=== PATIENT | female | born 1940 | race Caucasian/White ===

== ENCOUNTER 2024-10-26 16:23 | Inpatient (IN) | payer MEDICARE, SELFPAY ==
[2024-10-26] VITALS (11 sets, daily range): BP systolic 69–134; BP diastolic 40–84; PULSE 85–117; RESP 20–39; TEMP 36.9; O2SAT 94–100
--- NOTE | ~2024-10-26 | CT_ITS ---
EXAMINATION: CTA chest PE protocol DATE: 10/26/2024 18:25 INDICATION: Pneumonia. TECHNIQUE: Computed tomography angiography (CTA) of the chest was performed with 100 mL Omnipaque-350 intravenous contrast timed to evaluate the pulmonary arteries. Coronal maximum intensity projection 3D-reconstructions were created by the technologist. Automated exposure control and iterative reconst ruction technique were employed. The dose-length product was 687.60 mGy-cm. COMPARISON: None. FINDINGS: There is mild emphysema. There is mild atelectasis bilaterally. There are centrilobular nod ules in lingula, consistent with mild pneumonia. No pleural effusion. There is total occlusion of lef t common carotid artery. The heart size is normal. There are coronary artery calcifications. No peric ardial effusion. There is no pulmonary embolus. There is mild left hilar and mediastinal lymphadenopa thy, likely reactive. There is severe cervical spondylosis and moderate thoracic spondylosis. There i s mild chronic anterior wedging of multiple vertebral bodies. IMPRESSION: 1. No pulmonary embolus. Sensitivity is mildly decreased by motion artifact. 2. Mild pneumonia in lingula. 3. Mild emphysema. 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 Reviewed, dictated and finalized at location A. INAL JUDGE
--- NOTE | ~2024-10-26 | XR_ITS ---
EXAMINATION: XR chest 1V portable DATE: 10/31/2024 13:12 INDICATION: Cough. TECHNIQUE: A single frontal view of the chest was obtained. COMPARISON: Chest single view 10/26/2024, chest CT 10/26/2024 FINDINGS: There are airspace opacities in the lower lung zones. No pleural effusion or pneumothorax. The heart size is normal. There is an electronic implant in left anterior chest wall. IMPRESSION: 1. Airspace opacities in the lower lung zones, consistent with atelectasis versus pneumonia. Reviewed, dictated and finalized at location A. ONICS TECHNICIAN IMPRESSION: 1. Airspace opacities in the lower lung zones, consistent with atelectasis vers us pneumonia.
--- NOTE | ~2024-10-26 | XR_ITS ---
XR abdomen/kub 1V Ordering provider: Toya Ferrer MD History: . constipation . Comparison: None. FINDINGS: BOWEL: Nonobstructive bowel gas pattern. Fecal material is seen in the colon. ORGANOMEGALY: None. SIGNIFICANT PATHOLOGIC CALCIFICATIONS: None. OTHER: No free air is seen under the diaphragm. IMPRESSION: NO ACUTE ABDOMINAL FINDINGS. Constipation. Reviewed, dictated and finalized at location A. MATION CLERK
--- NOTE | ~2024-10-26 | XR_ITS ---
EXAMINATION: XR chest 1V portable DATE: 10/26/2024 16:53 INDICATION: Shortness of breath. Pneumonia. TECHNIQUE: A single frontal view of the chest was obtained. COMPARISON: None. FINDINGS: There are airspace opacities at left lung base. No pleural effusion or pneumothorax. The he art size is normal. There is electronic device overlying left chest wall. IMPRESSION: 1. Airspace opacities at left lung base, consistent with atelectasis versus pneumonia. Reviewed, dictated and finalized at location A. INTERNSHIP IMPRESSION: 1. Airspace opacities at left lung base, consistent with atelectasis versus pne umonia.
--- OUTSIDE RECORDS SUMMARY | 2024-10-26 16:26 | XMS_ITS | CONTINUITY OF CARE DOCUMENT ---
Author Name henrietta shrestha Address Unknown Organization [facility] Address [address] [place] [address] Phone [phone] Care Team Providers Care X Ray Operator Name Role Phone Farshad JOE, Nannette Unavailable Nannette Yen MD Unavailable [phone] INSURANCE PROVIDERS Payer name Policy type / Coverage type [employer] ID [id number] PAY [place] [employer] Medicare [id number]
[2024-10-26 16:56] LABS: Alveolar/Arterial O2 Gradient 56.7 mmHg; Base Excess ABG -2.8 mEq/l (+/-2.0); Carboxyhemoglobin 1.2 % THb (0-2.0); Fractional Inspired Oxygen 21 %; HCO3 ABG 19.7 mEq/l (22.0-26.0); Methemoglobin ABG 0.1 %THb (0-1.5); Oxygen Content ABG 14.1 %vol (16.0-22.0); Oxygen Saturation ABG 92.9 % (95.0-100.0); Oxyhemoglobin 89.1 % THb (90.0-100.0); PCO2 ABG 27.6 mmHg (35.0-45.0); PO2 FiO2 Ratio Arterial Blood 2.86 %; Reduced Hemoglobin 9.6 %THb (0-5.0); Total Hemoglobin 11.2 g/dL (12.0-18.0); pH ABG 7.472 (7.350-7.450)
[2024-10-26 16:57] LABS: Site Drawn RIGHT BRACHIAL
--- OUTSIDE RECORDS SUMMARY | 2024-10-26 17:09 | XMS_ITS | Clinical Summary ---
Author Organization [facility] [address] [place] [address] Care Team Providers Care Business Intelligence Architect Name Role Phone Hayden Oreilly MD Primary Care Provi erinn Pipo Richardson MD Unavailable [phone] Allergies No known active allergies Medications nebulizers misc 1 Units every 6 (six) hours 1 each 05/25/20 22 Active cholecalciferol (VITAMIN D-3) 2000 unit tablet Act carroll aspirin 81 mg chewable tablet Take 1 tablet (81 mg total) by mouth daily Active atorvastatin (LIPITOR) 40 mg tablet Take 1 tablet (40 mg total) by mouth daily Active clopidogreL (PLAVIX) 75 mg tablet Take 1 tablet (75 mg total) by mouth daily Active levothyroxine (SYNTHROID) 125 mcg tablet TAKE 1 TABLET BY MOUTH EVERY DAY IN THE MORNING ON AN EMPTY STOMACH 90 tablet 1 05/15/20 24 Active valsartan-hydroch lorothiazide (DIOVAN-HCT) 160-25 mg per tablet TAKE 1 TABLET BY MOUTH EVERY DAY 90 tablet 1 05/15/20 24 Active meloxicam (MOBIC) 15 mg tablet TAKE 1 TABLET BY MOUTH EVERY DAY 90 tablet 1 06/07/[address] (PROTONIX) 40 mg EC tablet TAKE 1 TABLET BY MOUTH EVERY DAY 100 tablet 1 07/04/20 24 Active alendronate (FOSAMAX) 70 mg tablet TAKE 1 TABLET BY MOUTH ONCE A WEEK WITH A FULL GLASS OF WATER ONLY. DO NOT LIE DOWN/EAT FOR 30 MINS 12 tablet 3 07/29/20 24 Active meclizine (ANTIVERT) 25 mg tablet 09/10/19 25 Active benzonatate (TESSALON) 100 mg capsuleIndication s:Cough Take 1 capsule (100 mg total) by mouth 3 (three) times a day as needed for cough 42 capsule 09/23/19 25 Active ipratropium-albut Josiah (COMBIVENT RESPIMAT) 20-100 mcg/actuation inhalerIndication s:Chronic Obstructive Pulmonary Disease with Bronchospasms Inhale 2 puffs 3 (three) times a day 3 each 3 10/18/19 25 Active fluticasone-umecl idin-vilanter (Trelegy Ellipta) 100-62.5-25 mcg inhalerIndication s:Bronchospasm Prevention with COPD Inhale 1 puff daily 3 each 3 10/20/19 25 Active albuterol HFA (PROVENTIL HFA,VENTOLIN HFA,PROAIR HFA) 90 mcg/actuation inhaler Inhale 2 puffs every 4 (four) hours as needed for wheezing 1 each 5 10/25/19 25 Active cefdinir (OMNICEF) 300 mg capsule Take 1 capsule (300 mg total) by mouth 2 (two) times a day for 5 days 10 capsule 10/25/19 25 025 Active albuterol 2.5 mg /3 mL (0.083 %) nebulizer solution Take 3 mL (2.5 mg total) by nebulization every 6 (six) hours as needed for wheezing or shortness of breath 75 mL 10/26/19 25 Active albuterol 2.5 mg /3 mL (0.083 %) nebulizer solution Take 3 mL (2.5 mg total) by nebulization every 6 (six) hours as needed for wheezing 025 Discontinu ed(Reorder ) albuterol HFA (PROVENTIL HFA,VENTOLIN HFA,PROAIR HFA) 90 mcg/actuation inhaler Inhale 2 puffs every 4 (four) hours as needed for wheezing 1 each 5 04/19/20 24 025 Discontinu ed(Reorder ) fluticasone-umecl idin-vilanter (Trelegy Ellipta) 100-62.5-25 mcg inhalerIndication s:Bronchospasm Prevention with COPD Inhale 1 puff daily 2 each 06/17/20 24 025 Discontinu ed(Therapy completed) predniSONE (DELTASONE) 20 mg tabletIndications :Bronchitis Take 1 tablet (20 mg) by mouth 2 (two) times a day for 5 days 10 tablet 09/23/19 25 025 azithromycin (ZITHROMAX) 500 mg tabletIndications :Bronchitis,Strep throat Take 1 tablet (500 mg total) by mouth daily for 5 days 5 tablet 09/23/19 25 025 predniSONE (DELTASONE) 20 mg tabletIndications :Shortness of breath Take 1 tablet (20 mg) by mouth 2 (two) times a day for 5 days 10 tablet 10/16/19 25 025 Active Problems Problem Noted Date Diagnosed Date Shortness of breath 10/16/2024 Assessment & Plan (10/16/2024 3:17 PM ELECTRIC BLANKET PACKER): O2 saturation between 92-94% at rest Recommended ER evaluation, patient declined Will treat for possible COPD exacerbation again with prednisone Albuterol as needed Already recently treated with prednisone, z pack Please see your PCP or information director in the future for recurrent COPD exacerbations Cough 10/16/2024 Assessment & Plan (10/16/2024 3:16 PM ELECTRIC BLANKET PACKER): Mucinex as expectorant Albuterol nebulizer Prednisone Likely d/t COPD exacerbation Bronchitis 09/23/2024 Assessment & Plan (09/23/2024 11:51 AM ELECTRIC BLANKET PACKER): Covid and flu test negative Wheezing throughout all lung olson. No dyspnea. No need for supplemental oxygen with O2 sat 97% Initiate prednisone 20 mg twice daily x 5 days for cough. Albuterol every 4 hours for cough, chest tightness, shortness of breath. May use albuterol nebulizer. Worsening shortness of breath, chest pain, shortness of breath or worsening symptoms MUST seek emergency medical treatment. Strep throat 09/23/2024 Assessment & Plan (09/23/2024 12:04 PM ELECTRIC BLANKET PACKER): Rapid strep positive Initiate Zithromax as this antibiotic is effective as well in patient's with COPD exacerbation and safe in patient's with CKD. Warm salt water gargles. Tylenol for sore throat, body aches, fever. Cerebrovascular accident (CVA) 05/01/2024 History of stroke 04/18/2024 Carotid artery occlusion 04/14/2024 Carotid occlusion, left 04/14/2024 Acute ischemic stroke 04/13/2024 Carotid stenosis 04/13/2024 COPD (chronic obstructive pulmonary disease) 05/2024 Atherosclerosis of [place] of both lower extremities with intermittent claudication 01/31/2024 Assessment & Plan (05/16/2024 9:14 AM CDT): Tenderness with ecchymosis noted to the left calf extending down to the ankle and foot. Limb is warm well perfused palpable pulses. Current duplex shows patent bilateral common iliac artery stents. The tenderness and bruising and swelling are likely from her recent trauma to the calf and because she is on dual antiplatelet therapy. Encouraged frequent elevation of her leg, wearing Tubigrip for support and follow up in the next 6 months for routine surveillance with iliac artery duplex. Assessment & Plan (04/01/2024 1:57 PM CDT): Symptoms improved following bilateral common iliac artery stenting. Continue exercise and ongoing risk factor modification. Follow up 3 months. Assessment & Plan (02/28/2024 12:24 PM CDT): Patient has progressive and disabling claudication of the bilateral lower extremities with evidence of aortoiliac occlusive disease. I have recommended proceeding with angiogram possible intervention the procedure indications and all associated risks have been explained. Patient understands agrees to proceed Assessment & Plan (01/31/2024 10:21 AM CDT): Patient has progressive and disabling bilateral lower extremity claudication extending throughout the buttock thigh and calf. Given the likely multi level nature of her disease I have recommended obtaining CT angiogram abdomen and pelvis with runoff. Once that study is performed follow up to discuss further recommendations. Stage 3a chronic kidney disease 06/03/2021 Osteopenia of hip 06/19/2018 Hypertensive chronic kidney disease with stage 1 through stage 4 chronic kidney disease, or unspecified chronic kidney disease 05/15/2018 Assessment & Plan (02/28/2024 12:24 PM CDT): Hypertension and CKD chronic and controlled. Continue current medical management. Assessment & Plan (01/31/2024 10:22 AM CDT): Hypertension and CKD chronic and controlled. Continue current medical management. Hypothyroidism (acquired) 05/16/2017 Primary osteoarthritis of both knees 05/16/2017 Chronic obstructive pulmonary disease 10/28/2016 Assessment & Plan (04/01/2024 1:57 PM CDT): COPD chronic and controlled. Continue current medical management. Assessment & Plan (01/31/2024 10:21 AM CDT): Former smoker. COPD chronic and controlled. Continue current medical management. Resolved Problems Problem Noted Date Diagnosed Date Resolved Date Numbness and tingling 04/12/20242023 Weakness 04/12/2024 07/08/2024 Abscess 06/03/2022 07/07/2023 Class 1 obesity due to exces s calories with serious comorbidity and body mass index (BMI) of 32.0 to 32.9 in adult 06/03/2021 06/07/2022 Chronic kidney disease, stage II (mild) 05/15/2018 06/03/2021 Encounters Date Type Department Care Team Description 10/26/2024 Nurse Triage [facility] Family Medicine [address] [facility] [address] [place] [address] Hayden Oreilly MD 10/25/2024 Orders Only [facility] Virtual Care [address] [place] [phone] Cony Caba NP 10/25/2024 Nurse Triage [facility] Family [facility] [address] [facility] [address] [place] [address] Hayden Oreilly MD 10/25/2024 Telephone [facility] [address] [facility] [address] [place] [phone] Hayden Oreilly MD LAVELL Questions 10/18/2024 Telephone [facility] [address] [facility] [address] [place] [phone] Hayden Oreilly MD Medication Request 10/18/2024 Telephone [facility] [address] [facility] [address] [place] [phone] Hayden Oreilly MD Medical Question/Miscellan eous 10/16/2024 3:15 PM ELECTRIC BLANKET PACKER Office Visit [facility] [place] [address] [phone] Tamar Carpio PA Shortness of breath (Primary Dx); Cough, unspecified type 10/16/2024 Nurse Triage [facility] [address] [facility] [address] [place] [phone] Hayden Oreilly MD 2024 Telephone [facility] [address] [phone] Hayden Oreilly MD Forms Request 10/14/2024 Telephone [facility] [address] [address] Hayden Oreilly MD Medical Question/Miscellan eous 10/03/2024 Telephone [facility] [address] [phone] Hayden Oreilly MD Referral Request 09/23/2024 11:55 AM ELECTRIC BLANKET PACKER Ancillary Procedure [facility] [place] [address] [address] Bronchitis 09/23/2024 11:45 AM ELECTRIC BLANKET PACKER Office Visit [facility] [place] [address] [address] Faiz, Fazillah, PA Bronchitis (Primary Dx); Strep throat 09/23/2024 Telephone [facility] [place] [address] [facility] [address] [place] [address] Sheree Gomez NP 09/23/2024 Nurse Triage [facility] [address] [facility] [address] [place] [address] Hayden Oreilly MD 09/12/2024 9:30 AM ELECTRIC BLANKET PACKER Procedure visit [facility] [address] [facility] [address] [place] [address] Myrna Gamboa NP Bilateral impacted cerumen (Primary Dx) 09/10/2024 Orders Only [facility] Health Information Management [address] [place] [address] Scanning, Provider 09/09/2024 Telephone [facility] [address] [facility] [address] [place] [address] Hayden Oreilly MD Medical Question/Miscellan eous 08/05/2024 Telephone [facility] [address] [facility] [address] [place] [address] Hayden Oreilly MD Case Management- Primary Care (Trelegy Samples Request) 08/05/2024 ACO Outreach [facility] Accountable Care Organization [address] [place] [address] Tabitha Galvin RN from Last 3 Months Immunizations Immunization Administration Dates Next Due Influenza, Quadrivalent, Hig h Dose, Preservative Free, Intrr 07/06/2023,06/07/2022,06/30/2021 Influenza, Quadrivalent, Spl it, Intramuscular 05/16/2017 Influenza, Trivalent, High D ose, Split, Preservative Free, Intramuscular 07/08/2024,06/19/2018 Influenza, Trivalent, Preser vative Free, Intramuscular 11/25/2013 Influenza, Unspecified 04/18/2024(Deferr ed: Patient Refused),11/05/2023(Deferred: Patient Refused),11/05/2023(Deferred: Patient Refused),11/05/2023(Deferred: Patient Refused),11/04/2022(Deferred: Patient Refused),07/02/2021,06/23/2020(Deferre d: Patient Refused) Pneumococcal Conjugate PCV 13 05/16/2017, 016 Pneumococcal Polysaccharide PPV23 06/19/2018, RSV, Bivalent, Protein Subun it Rsvpref, Diluent (Abrysvo) 08/09/2024 Surgical History Surgery Date Site/Laterality Comments ANGIOPLASTY / STENTING ILIAC 02/27/2024 Bilateral Aortoiliac angiogram. BA & stenting bilateral KELSEY OTHER SURGICAL HISTORY Loop recorder implanted Medical History Medical History Date Comments Hypertension Hyperlipidemia Thyroid disease Osteoporosis Cancer (CMS/HCC) (HCC) Throat COPD (chronic obstructive pulmonary disease) (HC C) Stroke (HCC) Family History Medical History Relation Name Comments No Known Problems Father No Known Problems Mother Relation Name Status Comments Father Mother Social History Tobacco Use Types Packs/Day Years Used Date Smoking Tobacco: Former Cigarettes Q uit: 09/04/1992 Smokeless Tobacco: Never Tobacco Cessation:Counseling Given: Not Answered Comments:Quit 20 years ago Alcohol Use Standard Drinks/Week Comments Not Currently 0 (1 standard drink = 0.6 oz pur e alcohol) [employer] Utilities Answer Date Recorded In the past 12 months has [employer], gas, oil, or water [employer] threatened to shut off services in your home? No 05/09/2024 Social Connection and Isolat ion Panel [NHANES] Answer Date Recorded In a typical week, how many times do you talk on the phone with family, friends, or neighbors? More than three times a week 05/09/2024 How often do you get togethe r with friends or relatives? More than three times a week 05/09/2024 How often do you attend chur ch or judaism services? Never 05/09/2024 Do you belong to any clubs o r organizations such as temple groups, unions, fraternal or athletic groups, or school groups? No 05/09/2024 How often do you attend meet ings of the clubs or organizations you belong to? Never 05/09/2024 Are you , , di vorced, , never , or living with a partner? 05/09/2024 AUDIT-C Answer Date Recorded Q1: How often do you have a drink containing alcohol? Never 02/27/2024 Q2: How many drinks containi ng alcohol do you have on a typical day when you are drinking? Patient does not drink Q3: How often do you have si x or more drinks on one occasion? Never 02/27/2024 Overall Financial Resource Strain (CARDIA) Answe r Date Recorded How hard is it for you to pa y for the very basics like food, housing, medical care, and heating? Not hard at all 05/09/2024 PHQ-2 Answer Date Recorded PHQ-2 Total Score (If total score is 3 or more points, staff should administer the PHQ-9) 0 07/08/2024 Hunger Vital Sign Answer Date Recorded Within the past 12 months, y ou worried that your food would run out before you got the money to buy more. Never true 05/09/20 24 Within the past 12 months, t he food you bought just didn't last and you didn't have money to get more. Never true 05/09/2024 PRAPARE - Transportation Answer Date Re corded In the past 12 months, has l ack of transportation kept you from medical appointments or from getting medications? No 01/2024 In the past 12 months, has l ack of transportation kept you from meetings, work, or from getting things needed for daily living? No 05/09/2024 Housing Stability Vital Sign Answer Ulisses e Recorded In the last 12 months, was t here a time when you were not able to pay the mortgage or rent on time? No 05/09/2024 In the past 12 months, how m any times have you moved where you were living? 0 05/09/2024 At any time in the past 12 m [facility], were you homeless or living in a fdc (including now)? No 05/09/2024 Personal Safety Answer Date Recorded Have you ever been in or are you currently in a harmful physical or emotional relationship or is someone making you feel afraid or unsafe? 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 ELECTRIC BLANKET PACKER Gender Identity Not on file Sexual Orientation Not on file Obstetrics History Last Filed Vital Signs Vital Sign Reading Time Taken Comments Blood Pressure 120/78 10/16/2024 2:39 PM ELECTRIC BLANKET PACKER Pulse 103 10/16/2024 2:39 PM ELECTRIC BLANKET PACKER Temperature 36.7 C (98 F) 10/16/2024 2:39 PM ELECTRIC BLANKET PACKER Respiratory Rate 22 10/16/2024 2:39 PM ELECTRIC BLANKET PACKER Oxygen Saturation 92% 10/16/2024 2:39 PM ELECTRIC BLANKET PACKER Inhaled Oxygen Concentration - - Weight 83.3 kg (183 lb 9.6 oz) 10/16/2024 2:39 P M ELECTRIC BLANKET PACKER Height 160 cm (5' 2.99 ) 10/16/2024 2:39 PM ELECTRIC BLANKET PACKER Body Mass Index 32.53 10/16/2024 2:39 PM ELECTRIC BLANKET PACKER Plan of Treatment Health Maintenance Due Date Last Done Comments DTaP/Tdap/Td Vaccine (1 - Tdap) 1951 Hepatitis B Screening 1956 Zoster Vaccine (1 of 2) 1988 Depression Screening 07/08/2025 07/08/2024, 07/06/2023, 06/03/2022, Additional history exists Fall Risk Assessment 07/08/2025 07/08/2024, 02/27/2024, 07/06/2023, Additional history exists Well Visit 65+ 07/08/2025 07/08/2024, 10/2022, 06/03/2022, Additional history exists Covid-19 Vaccine ( season) 2025 06/15/2021, 11/12/2020, 10/21/2020 Postponed from 05/05/2024 (Patient declined, but will receive in the future) Pneumococcal vaccine 65+ Completed 018, 05/16/2017, 04/04/2016, Additional history exists Influenza Vaccine Completed 07/08/2024, , 06/07/2022, Additional history exists Medical Devices Implanted Type Area Safety Companion Device Identifier Shelf Expiration Date Model / Serial / Lot [employer] Lifestream 8mm 37mm 80cm Balloon Expandable Low Profile Cover [id number] - [id number] Implanted:Qty: 1 on 02/27/2024 by Pipo Richardson MD at [facility] [employer] 10/04/2024 [id number] / / [id number] [employer] Lifestream 8mm 37mm 80cm Balloon Expandable Low Profile Cover [id number] - [id number] Implanted:Qty: 1 on 02/27/2024 by Pipo Richardson MD at [facility] [employer] 09/03/2025 [id number] / / [id number] [employer] Closure Repair Femoral Artery Suture Mediated Perclose Prostyle 63330-60 - [id number] Implanted:Qty: 1 on 02/27/2024 by Pipo Richardson MD at [facility] [employer] 11/01/2025 [id number] / / [id number] [employer] Closure Repair Femoral Artery Suture Mediated Perclose Prostyle 28076-37 - [id number] Implanted:Qty: 1 on 02/27/2024 by Pipo Richardson MD at [facility] [employer] 11/01/2025 [id number] / / [id number] Procedures Procedure Name Priority Date/Time Associated Diagnosis Comments XR CHEST 1 VIEW Schedule Routine, Read Routine (OP Routine) 10/20/2024 8:26 AM ELECTRIC BLANKET PACKER POC INFLUENZA A/B, COVID-19 ANTIGEN Routine 10/16/2024 2:45 PM ELECTRIC BLANKET PACKER Cough, unspecified type POCT RAPID RSV Routine 10/16/2024 2:44 PM ELECTRIC BLANKET PACKER Cough, unspecified type XR CHEST PA LATERAL 2 VIEWS Schedule SARAH, Read SARAH (Appt Today, Awaiting Results) 09/23/2024 12:00 PM ELECTRIC BLANKET PACKER Bronchitis POCT RAPID RSV Routine 09/23/2024 11:27 AM ELECTRIC BLANKET PACKER Bronchitis POC INFLUENZA A/B, COVID-19 ANTIGEN Routine 09/23/2024 11:27 AM ELECTRIC BLANKET PACKER Bronchitis POCT RAPID STREP Routine 09/23/2024 11:1 9 AM ELECTRIC BLANKET PACKER Bronchitis Strep throat HI REMOVAL IMPACTED CERUMEN IRRIGATION/LVG UNILAT Routine 09/12/2024 9:30 AM ELECTRIC BLANKET PACKER Bilateral impacted cerumen SCAN - RADIOLOGY/IMAGING 09/10/2024 from Last 3 Months Results * XR Chest 1 View (10/20/2024 8:26 AM ELECTRIC BLANKET PACKER) Anatomical Region Laterality Modality Body, Chest N/A Radiographic Maame ging Historical Provider MD ACHARYA XR PROCEDURES Edited Result - Final * POC Influenza A/B, COVID-19 antigen (10/16/2024 2:45 PM ELECTRIC BLANKET PACKER) Influenza A Ag, POC Negative Negative [facility] Influenza B Ag, POC Negative Negative [facility] COVID-19 Ag POC Presumptive Negative Presumptive Negative, Invalid [facility] Nasopharyngeal 10/16/2024 2: 45 PM ELECTRIC BLANKET PACKER [facility] Jujuiz PA POINT OF CARE TEST ORDERABLES F inal Result [facility] [address] [id number] * POCT rapid RSV (10/16/2024 2:44 PM ELECTRIC BLANKET PACKER) Rapid RSV, POC Negative Negative Lot Number [id number] QC Control Line Acceptable Swab 10/16/2024 2:44 PM ELECTRIC BLANKET PACKER [facility] Jujuiz PA POINT OF CARE TEST ORDERABLES F inal Result * XR Chest Pa Lateral 2 Views (09/23/2024 12:00 PM ELECTRIC BLANKET PACKER) Anatomical Region Laterality Modality Body, Chest N/A Computed Radiogr aphy 09/23/2024 1:09 PM ELECTRIC BLANKET PACKER Narrative 09/23/2024 1:10 PM ELECTRIC BLANKET PACKER EXAM DESCRIPTION: XR CHEST PA LATERAL 2 VIEWS REASON FOR STUDY: COPD, exacerbation TECHNIQUE: Frontal and lateral radiographic view(s) of the chest. COMPARISON: 12/27/2023 FINDINGS: The heart size is stable. There is mild prominence of the pulmonary vasculature. There are atherosclerotic changes of the aorta. The lungs mildly hyperinflated. There is no definite evidence of a pneumothorax. There is no definite evidence of pleural effusion. There are mild patchy bibasilar airspace opacities. The osseous structures are acutely grossly stable. IMPRESSION: Mild patchy bibasilar airspace opacities, which is likely related to subsegmental atelectasis/scarring and less likely developing airspace disease. Mild prominence of pulmonary vasculature. THIS IS AN ELECTRONICALLY VERIFIED FINAL REPORT 09/23/2024 1:10 PM - Electronically signed by Xavier Rios D.O. PS T: Report ID: [id number] Reading Location: [id number] Procedure Note Xavier Rios, DO - 09/23/2024 EXAM DESCRIPTION: XR CHEST PA LATERAL 2 VIEWS REASON FOR STUDY: COPD, exacerbation TECHNIQUE: Frontal and lateral radiographic view(s) of the chest. COMPARISON: 12/27/2023 FINDINGS: The heart size is stable. There is mild prominence of thepulmonary vasculature. There are atherosclerotic changes of the aorta. The lungs mildly hyperinflated. There is no definite evidence of a pneumothorax.There is no definite evidence of pleural effusion. There are mild patchybibasilar airspace opacities. The osseous structures are acutely grossly stable. IMPRESSION: Mild patchy bibasilar airspace opacities, which is likely related to subsegmental atelectasis/scarring and less likely developing airspacedisease. Mild prominence of pulmonary vasculature. THIS IS AN ELECTRONICALLY VERIFIED FINAL REPORT 09/23/2024 1:10 PM - Electronically signed by Xavier Rios D.O. PS T: Report ID: [id number] Reading Location: [id number] [facility] IMG XR PROCEDURES Final Result * POC Influenza A/B, COVID-19 antigen (09/23/2024 11:27 AM ELECTRIC BLANKET PACKER) Influenza A Ag, POC Negative Negative [facility] Influenza B Ag, POC Negative Negative [facility] COVID-19 Ag POC Presumptive Negative Presumptive Negative, Invalid [facility] Nasopharyngeal 09/23/2024 11 :27 AM ELECTRIC BLANKET PACKER [facility] Balaji PA POINT OF CARE TEST ORDERABLES F inal Result [facility] [address] [facility] [address] [place] [address] * POCT rapid RSV (09/23/2024 11:27 AM ELECTRIC BLANKET PACKER) Rapid RSV, POC Negative Negative Lot Number [id number] QC Control Line Acceptable Swab 09/23/2024 11:2 7 AM ELECTRIC BLANKET PACKER [employer] Balaji PA POINT OF CARE TEST ORDERABLES F inal Result * (ABNORMAL) POCT rapid strep A (09/23/2024 11:19 AM ELECTRIC BLANKET PACKER) Rapid Strep A, POC Positive(A ) Negative Swab 09/23/2024 11:1 9 AM ELECTRIC BLANKET PACKER [employer] Balaji MACE POINT OF CARE TEST ORDERABLES E dited Result - Final * HI REMOVAL IMPACTED CERUMEN IRRIGATION/LVG UNILAT (09/12/2024 9:30 AM ELECTRIC BLANKET PACKER) Narrative Myrna Gamboa NP - 09/12/2024 9:30 AM ELECTRIC BLANKET PACKER Myrna Gamboa NP 09/12/2024 10:47 AM Ear Cerumen Removal Performed by: Myrna Gamboa NP Authorized by: Myrna Gamboa NP Consent Given by: Patient Verbal consent obtained: Yes Preparation: Patient was prepped using a clean technique Location: Bilateral L ear cerumen impacted?: Yes L ear method of removal: Irrigation L ear magnification: Otoscope R ear cerumen impacted?: Yes R ear method of removal: Irrigation R ear magnification: Otoscope Inspection: TM intact Hearing quality: Normal Patient tolerance: Patient tolerated the procedure well with no immediate complications Myrna Gamboa NP [facility]BEDSIDE [facility] Final Result * SCAN - RADIOLOGY/IMAGING (09/10/2024) Anatomical Region Laterality Modality Other us Provider Scanning Final Result from Last 3 Months Insurance DEVOTED MEDICARE PPO [place] [id number] Advance Directives For more information, please contact: [phone] * Full Code (Latest Code Status on File) Date Activated Date Inactivated Comments 06/03/2022 1:32 PM 06/05/2022 3:52 PM Care Teams Business Intelligence Architect Relationship Specialty Start Date End Date Hayden Oreilly MD [address] [address] PCP - General Family Medicine 01/31/19 Pipo Richardson MD [address] [place] [facility] [place] [address] Surgeon Vascular Surgery 02/27/24
--- OUTSIDE RECORDS SUMMARY | 2024-10-26 17:09 | XMS_ITS | Patient Health Summary ---
Author Organization [facility] Address [address] [place] [address] Care Team Providers Care Preprint Analyst Name Role Phone Hayden Oreilly MD Primary Care Provi erinn Note from [facility],non-owned Affiliates and Associated Physician Practices is amultiple site organization consisting of ambulatory clinics and hospital sitesin [place], [place] and [place]. This disclosure is being madepursuant to the Care Everywhere program and may not contain all information available regarding this patient. Last updated 18.[facility] Allergies No known active allergies Medications * Be aware that medications may not be up to date on this document. Alwaysverify current medications with the patient. * albuterol (Proventil;Ventolin) (2.5 MG/3ML) 0.083% nebulizer solution Inhale 2.5 (two and one-half) mg by mouth every 6 hours as needed * levothyroxine (Synthroid) 125 MCG tablet(Started 02/28/2023) Take 1 (one) tablet by mouth daily before breakfast * pantoprazole EC (Protonix) 40 MG tablet(Started 01/05/2024) Take 1 (one) tablet by mouth once daily * valsartan-hydroCHLOROthiazide (Diovan HCT) 160-25 MG tablet(Started 02/17/2024) Take 1 (one) tablet by mouth once daily * alendronate (Fosamax) 70 MG tablet(Started 02/12/2024) Take 1 (one) tablet by mouth every 7 days before meal * Cholecalciferol 50 MCG (1999 UT) Take 2.5 (two and one-half) tablets by mouth once daily * meloxicam (Mobic) 15 MG tablet(Started 12/07/2023) Take 1 (one) tablet by mouth once daily * aspirin (Aspirin) 81 MG chew tablet(Started 04/16/2024) Take 1 (one) tablet by mouth once daily 3 refills by 04/15/2025 * atorvastatin (Lipitor) 40 MG tablet(Started 04/15/2024) Take 1 (one) tablet by mouth at bedtime 3 refills by 04/15/2025 * clopidogrel (plaVIX) 75 MG tablet(Started 04/16/2024) Take 1 (one) tablet by mouth once daily 3 refills by 04/15/2025 Active Problems Problem Noted Date Diagnosed Date Cerebrovascular accident (CVA) 05/01/2024 Carotid artery occlusion 04/14/2024 Carotid occlusion, left 04/14/2024 Acute ischemic stroke 04/13/2024 Carotid stenosis 04/13/2024 Weakness 04/12/2024 Numbness and tingling 04/12/2024 COPD (chronic obstructive pulmonary disease) 05/2024 Social History Tobacco Use Types Packs/Day Years Used Date Smoking Tobacco: Former Cigarettes Q uit: 04/04/1994 Smokeless Tobacco: Former Quit: 04/06/1994 Tobacco Cessation:Counseling Given: Not Answered Alcohol Use Standard Drinks/Week Comments Never 0 (1 standard drink = 0.6 oz pur e alcohol) AUDIT-C Answer Date Recorded Q1: How often do you have a drink containing alcohol? Never 04/12/2024 Q2: How many drinks containi ng alcohol do you have on a typical day when you are drinking? Patient does not drink Q3: How often do you have si x or more drinks on one occasion? Never 04/12/2024 Overall Financial Resource Strain (CARDIA) Answe r Date Recorded How hard is it for you to pa y for the very basics like food, housing, medical care, and heating? Not hard at all 04/12/2024 PHQ-2 Answer Date Recorded Patient Health Questionnaire-2 Score 0 04/14/2024 [facility] - Occupational Stress Questionnaire Answer Date Recorded Do you feel stress - tense, restless, nervous, or anxious, or unable to sleep at night because your mind is troubled all the time - these days? Not at all 04/12/2024 Hunger Vital Sign Answer Date Recorded Within the past 12 months, y ou worried that your food would run out before you got the money to buy more. Never true 04/12/20 24 Within the past 12 months, t he food you bought just didn't last and you didn't have money to get more. Never true 04/12/2024 PRAPARE - Transportation Answer Date Re corded In the past 12 months, has l ack of transportation kept you from medical appointments or from getting medications? No 05/2024 In the past 12 months, has l ack of transportation kept you from meetings, work, or from getting things needed for daily living? No 04/12/2024 Housing Stability Vital Sign Answer Ulisses e Recorded In the last 12 months, was t here a time when you were not able to pay the mortgage or rent on time? No 04/12/2024 In the last 12 months, how many places have you lived? 1 04/12/2024 In the last 12 months, was t here a time when you did not have a steady place to sleep or slept in a care home (including now)? No 04/12/2024 Sex and Gender Information Value Date Recorded Sex Assigned at Not on file Gender Identity Not on file Sexual Orientation Not on file Last Filed Vital Signs Vital Sign Reading Time Taken Comments Blood Pressure 105/74 06/07/2024 10:45 AM CDT Pulse 82 06/07/2024 10:45 AM CDT Temperature 36.6 C (97.9 F) 04/15/2024 4:34 PM CDT Respiratory Rate 12 06/07/2024 10:45 AM CDT Oxygen Saturation 96% 05/28/2024 2:52 PM CDT Inhaled Oxygen Concentration - - Weight 83.5 kg (184 lb) 05/28/2024 2:52 PM CDT Height 157.5 cm (5' 2 ) 05/28/2024 2:52 PM CDT Body Mass Index 33.65 05/28/2024 2:52 PM CDT Medical Devices Implanted Type Area Radar Tester Device Identifier Shelf Expiration Date Model / Serial / Lot Rcdr Crd Linq Ii Ins - [id number] Implanted:Qty: 1 on 04/15/2024 by Katie Quiles MD at [facility] [employer] [id number] 08/22/2025 LNQ22 / [id number] / [id number] Procedures * CARDIAC PROCEDURE ORDER(Performed 09/30/2024) * ND ILR DEVICE INTERROGAT REMOTE(Performed 09/08/2024) Performed for Cerebrovascular accident (CVA), unspecified mechanism (HCC) * ND ILR DEVICE INTERROGAT REMOTE(Performed 08/04/2024) Performed for Cerebrovascular accident (CVA), unspecified mechanism (HCC) * CARDIAC PROCEDURE ORDER(Performed 06/25/2024) * CARDIAC PROCEDURE ORDER(Performed 05/28/2024) * GLUCOSE - POINT OF CARE(Performed 04/15/2024) * CCL LOOP RECORDER IMPLANT(Performed 04/15/2024) Performed for Bilateral carotid artery stenosis * CARDIAC EKG ORDER(Performed 04/15/2024) * GLUCOSE - POINT OF CARE(Performed 04/15/2024) * VAS TRANSCRANIAL DOPPLER COMP(Performed 04/15/2024) Performed for Weakness * VAS CAROTID DUPLEX BILATERAL(Performed 04/15/2024) Performed for Weakness * CBC W/O DIFFERENTIAL(Performed 04/15/2024) * BASIC METABOLIC PANEL (CALCIUM TOTAL)(Performed 04/15/2024) * CT ANGIO BRAIN AND NECK(Performed 04/15/2024) Performed for Bilateral carotid artery stenosis * CARDIAC PROCEDURE ORDER(Performed 04/15/2024) * GLUCOSE - POINT OF CARE(Performed 04/14/2024) * ECHO COMPLETE W BUBBLE STUDY(Performed 04/14/2024) Performed for Numbness and tingling * GLUCOSE - POINT OF CARE(Performed 04/14/2024) * GLUCOSE - POINT OF CARE(Performed 04/14/2024) * CBC W/O DIFFERENTIAL(Performed 04/14/2024) * BASIC METABOLIC PANEL (CALCIUM TOTAL)(Performed 04/14/2024) * MRI BRAIN WO CONTRAST(Performed 04/14/2024) Performed for Numbness and tingling * GLUCOSE - POINT OF CARE(Performed 04/13/2024) * GLUCOSE - POINT OF CARE(Performed 04/13/2024) * GLUCOSE - POINT OF CARE(Performed 04/13/2024) * LIPID PROFILE(Performed 04/13/2024) * CBC W/O DIFFERENTIAL(Performed 04/13/2024) * BASIC METABOLIC PANEL (CALCIUM TOTAL)(Performed 04/13/2024) * BLOOD TYPE VERIFICATION(Performed 04/12/2024) * HEMOGLOBIN A1C(Performed 04/12/2024) * GLUCOSE - POINT OF CARE(Performed 04/12/2024) * TROPONIN-I HIGH SENSITIVE REFLEX 1HOUR(Performed 04/12/2024) * EKG 12-LEAD(Performed 04/12/2024) Performed for Weakness * TYPE + SCREEN PANEL(Performed 04/12/2024) * TROPONIN-I HIGH SENSITIVE BASELINE + 1HR(Performed 04/12/2024) * PT-INR SL[facility](Performed 04/12/2024) * COMPREHENSIVE METABOLIC PANEL(Performed 04/12/2024) * CBC W AUTO DIFFERENTIAL(Performed 04/12/2024) * CT BRAIN STROKE(Performed 04/12/2024) Performed for Weakness * PT EVAL AND TREAT(Performed 04/12/2024) * OT EVAL AND TREAT(Performed 04/12/2024) * INR WHOLE BLOOD - POINT OF CARE (IP) STROKE(Performed 04/12/2024) * CREATININE - POCT INTERFACED(Performed 04/12/2024) * XR CHEST CONTRACT READ(Performed 02/07/2023) Performed for Chronic obstructive pulmonary disease, unspecified COPD type (HCC) * XR CHEST CONTRACT READ(Performed 08/17/2021) Performed for Research study patient Results * CARDIAC PROCEDURE ORDER (09/30/2024) Only the most recent of4 resultswithin the time period is included. Narrative 09/30/2024 Ordered by an unspecified provider. Scanned Document CARDIAC SERVICES ORD ERABLES * ND ILR DEVICE INTERROGAT REMOTE (09/08/2024 6:40 PM PEDICURIST) Narrative Herman Bailey MD - 09/08/2024 6:40 PM PEDICURIST Herman Bailey MD 09/08/2024 6:41 PM Dear Ghazal Valadez, I reviewed the remote interrogation of your loop recorder. Your device's sensing is appropriate and stable. During this most recent monitored period ending on 08/26/2024 your atrial fibrillation/tachycardia burden was 0% and you had no significant arrhythmias. Device function is normal, no programming changes are required, and no medications will need to be changed. Please call our offices if you have any further questions. Sincerely, Herman Bailey 09/08/2024 Herman Bailey MD PROCEDURE/MINOR SURG ICAL ORDERABLES * ND ILR DEVICE INTERROGAT REMOTE (08/04/2024 7:33 PM PEDICURIST) Narrative Herman Bailey MD - 08/04/2024 7:33 PM PEDICURIST Herman Bailey MD 08/04/2024 7:33 PM Dear Ghazal Valadez, I reviewed the remote interrogation of your loop recorder. Your device's sensing is appropriate and stable. During this most recent monitored period ending on 07/29/2024 your atrial fibrillation/tachycardia burden was 0% and you had no significant arrhythmias. Device function is normal, no programming changes are required, and no medications will need to be changed. Please call our offices if you have any further questions. Sincerely, Herman Bailey 08/04/2024 Herman Bailey MD PROCEDURE/MINOR SURG ICAL ORDERABLES * (ABNORMAL) GLUCOSE - POINT OF CARE (04/15/2024 3:44 PM CDT) Only the most recent of9 resultswithin the time period is included. Glucose WB/POC 117(H) 70 - 115 mg/dL 04/15/2024 6:19 PM CDT [facility] Specimen Type Arterial 04/15/2024 6:19 PM CDT [facility] Blood BLOOD SPECIMEN / Unknown 04/15/2024 3:44 PM CDT 04/15/2024 6:19 PM CDT Miquel London MD LAB - POINT OF CARE ORDERABLES [facility] [address] [place] [id number], [facility] [phone] * CCL LOOP RECORDER IMPLANT (04/15/2024 3:38 PM CDT) Anatomical Region Laterality Modality Ultrasound Narrative 05/08/2024 8:46 AM CDT . Procedure Details Estimated Blood Loss: 0 mL Miquel London MD CV ELECTROPHYSIOLOGY CUPID PROCS * CARDIAC EKG ORDER (04/15/2024 12:29 PM CDT) Narrative 04/15/2024 12:29 PM CDT Ordered by an unspecified provider. Scanned Document CARDIAC SERVICES ORD ERABLES * VAS Transcranial Doppler Comp (04/15/2024 8:47 AM CDT) Anatomical Region Laterality Modality Head Ultrasound 04/15/2024 7:38 AM CDT Narrative Procedure Note Matheus Patton MD - 05/19/2024 Miquel London MD VASCULAR LAB ORDERAB LES * VAS Carotid Duplex Bilateral (04/15/2024 8:47 AM CDT) Anatomical Region Laterality Modality Neck Intravascular Ul trasound 04/15/2024 7:18 AM CDT Narrative Procedure Note Se Palomo MD - 04/17/2024 Miquel London MD VASCULAR LAB ORDERAB LES * (ABNORMAL) CBC W/O DIFFERENTIAL (04/15/2024 4:38 AM CDT) Only the most recent of3 resultswithin the time period is included. WBC 7.9 4.0 - 10.7 x10E9/L 04/15/2024 5:59 AM CDT [facility] RBC Count 4.33 3.90 - 5.20 x10E12/L 04/15/2024 5:59 AM CDT [facility] Hemoglobin 11.7(L) 11.9 - 15.8 g/dL 04/15/2024 5:59 AM CDT [facility] Hematocrit 37.2 34.8 - 46.1 % 04/15/2024 5:59 AM CDT [facility] MCV 85.9 80.0 - 98.0 fL 04/15/2024 5:59 AM T [facility] MCH 27.0 26.7 - 33.6 pg 04/15/2024 5:59 AM [facility] MCHC 31.5(L) 31.7 - 36.3 g/dL 04/15/2024 5:59 AM [facility] RDW-CV 16.1(H) 11.3 - 14.8 % 04/15/2024 5:59 AM [facility] Platelet Count 214 150 - 420 x10E9/L 04/15/2024 5:59 AM [facility] MPV 10.1 7.8 - 11.4 fL 04/15/2024 5:59 AM [facility] Blood BLOOD SPECIMEN / Unknown Lab Venipuncture / Unknown 04/15/2024 4:38 AM CDT 04/15/2024 5:50 AM CDT Miquel London MD LAB - HEMATOLOGY ORD ERABLES [facility] [address] [place] [address], [facility] [phone] * (ABNORMAL) BASIC METABOLIC PANEL (CALCIUM TOTAL) (04/15/2024 4:38 AM CDT) Only the most recent of3 resultswithin the time period is included. BUN 29(H) 7 - 26 mg/dL 04/15/2024 6:16 AM [facility] Creatinine 1.05(H) 0.56 - 0.96 mg/dL 04/15/2024 6:16 AM [facility] Sodium 140 136 - 145 mmol/L 04/15/2024 6:16 AM [facility] Potassium 4.6(H) 3.5 - 4.5 mmol/L 04/15/2024 6:16 AM [facility] Chloride 113(H) 98 - 107 mmol/L 04/15/2024 6:16 AM [facility] CO2 20(L) 22 - 29 mmol/L 04/15/2024 6:16 AM [facility] Glucose 100 70 - 115 mg/dL 04/15/2024 6:16 AM T [facility] Calcium 9.0 8.4 - 10.2 mg/dL 04/15/2024 6:16 AM [facility] Anion Gap 7 6 - 16 04/15/2024 6:16 AM T [facility] BUN/Creatinine Ratio 28(H) 7 - 23 04/15/2024 6:16 AM [facility] Osmolality Calculated 296(H) 275 - 295 mOsm/kg 04/15/2024 6:16 AM [facility] eGFR by CKD-EPI 52(L) >=90 mL/min/1.7 3 m2 04/15/2024 6:16 AM [facility] Blood BLOOD SPECIMEN / Unknown Lab Venipuncture / Unknown 04/15/2024 4:38 AM CDT 04/15/2024 5:50 AM CDT Miquel London MD LAB - CHEMISTRY [facility] Organization Address City/State/ZIP Co de Phone Number [facility] [address] [place] [address], [facility] [phone] * CT Angio Brain And Neck (04/15/2024 12:48 AM CDT) Anatomical Region Laterality Modality Head Computed Tomogra phy 04/15/2024 1:10 AM CDT Impressions 04/17/2024 2:15 PM CDT IMPRESSION: 1.Multifocal atherosclerotic disease is involving multiple vasculature as described above. There is a complete nonopacification of the left common carotid artery suggesting chronic occlusion. There is also significant atherosclerosis at the origin of left internal carotid artery and left carotid bulb causing moderate to severe stenosis. Diminutive caliber and decreased opacification of the left internal carotid artery secondary to severe proximal stenosis or occlusion with possible distal reconstitution/retrograde flow. 2.Atherosclerosis in the right carotid bulb causing more than 75% stenosis as described above. These findings are unchanged compared to prior outside study from 04/12/2024. 3.No large vessel occlusions or significant stenosis in the intracranial vasculature. The report is dictated by Nury Green Dr, MD (vice president industrial relations) I, Asia Holliday MD have personally reviewed and interpreted this examination/study. > Interpreting Provider: Asia Holliday MD on 04/17/2024 2:15 PM Narrative 04/17/2024 2:15 PM CDT PROCEDURE: CT ANGIO BRAIN AND NECK, DATE/TIME OF EXAM: 04/15/2024 12:48 AM, LOCATION [facility] INDICATION: I65.23: Bilateral carotid artery stenosis ADDITIONAL CLINICAL INFORMATION: Ordering Provider Reason For Exam: stenosis EXAMINATION: 1. Computed tomographic (CT) angiography of the head with contrast 2. CT angiography of the neck with contrast CONTRAST: IOPAMIDOL 76 % IV SOLN:75 mL TECHNIQUE: CT angiography of the head and neck was obtained after the uneventful administration of 75 mL Isovue-370 intravenous contrast. Three dimensional postprocessing was performed by the technologist and sent to the workstation for review. Stenosis measurements are based on NASCET criteria. CT dose reduction technique was used, including Automated Exposure Control. COMPARISON: CT brain stroke protocol dated 04/12/2024. CTA head and neck 04/12/2024, outside hospital FINDINGS: Non-angiographic findings: No definite areas of abnormal contrast enhancement noted. Mild generalized parenchymal volume loss again noted with associated ex vacuo dilation of the ventricles.. There The basilar cisterns are patent. No mass effect or midline shift is seen. Evaluation of the bay-white matter differentiation is limited on this contrast study. Other than bilateral cataract extractions, the visualized portions of the orbits, paranasal sinuses, and mastoids appear normal. No acute fracture is identified. 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 Redemonstrated. No soft tissue abnormalities are identified in the neck. Multilevel mild to moderate disc and joint degenerative changes of the spine without significant central canal stenosis. Emphysematous changes in the lungs. Angiographic findings: There is atherosclerotic disease of the aortic arch predominantly in the descending thoracic aorta with the mural thrombosis.. The configuration of the brachiocephalic vessels is typical. The innominate artery and both subclavian arteries appear normal. Midportion of the right common carotid artery with approximately 50% stenosis (image 180, series 7). There is also circumferential atherosclerosis scattered throughout the right common carotid artery predominantly in the distal portion. There is atherosclerotic disease with circumferential calcified atherosclerotic plaque and central soft atherosclerotic plaque (image 247, series 7), at the right carotid bifurcation and origin of the right internal carotid artery with greater than 75% focal stenosis by NASCET criteria. The right common and internal carotid arteries otherwise appear normal. Left common carotid artery is occluded from the origin/proximal portion with only faint opacification at the origin. There is also significant atherosclerosis at the left carotid bulb and also origin of the left internal carotid artery with moderate to severe stenosis accurate evaluation of the stenosis is limited secondary to diminutive caliber left internal carotid artery.. There is also decreased caliber and opacification of the left internal carotid artery including the petrous and cavernous segments, compared to the right, could be secondary to severe stenosis/occlusion at the origin and possible distal reconstitution/retrograde flow. These findings are unchanged compared to recent outside CT angiogram from 04/12/2024 Dominant right vertebral artery with the scattered areas of atherosclerosis, without causing significant stenosis throughout the course of including V3 segment. Nondominant left vertebral artery with areas of atherosclerosis throughout the course causing areas of cmuh-en-naalsihw stenosis predominantly in the V2 segment. There is also slightly decreased opacification of the left vertebral artery compared to the right predominantly in the V2 segment proximally and proximal V1 segment, could be secondary to differences in technique showed normal opacification on the prior study from 04/12/2024. Multifocal mild to moderate atherosclerotic calcifications in the bilateral cavernous segments of the internal carotid arteries left greater than right causing focal areas of mild to moderate stenosis, unchanged compared to recent study.. Slightly diminutive caliber bilateral anterior cerebral arteries appear patent.. Mild circumferential atherosclerotic calcifications in the V4 segments of the bilateral vertebral arteries without significant stenosis. Dominant right vertebral artery. There is also small focal atherosclerotic ulceration at the origin of basilar artery without significant stenosis. Basilar artery otherwise appears patent. Slightly diminutive caliber bilateral posterior cerebral arteries however appear patent. No aneurysms, vascular occlusions, or intracranial stenoses are identified. Procedure Note Asia Holliday MD - 04/17/2024 PROCEDURE: CT ANGIO BRAIN AND NECK, DATE/TIME OF EXAM: 04/15/2024 12:48 AM, LOCATION [facility] INDICATION: I65.23: Bilateral carotid artery stenosis ADDITIONAL CLINICAL INFORMATION: Ordering Provider Reason For Exam: stenosis EXAMINATION: 1. Computed tomographic (CT) angiography of the head with contrast 2. CT angiography of the neck with contrast CONTRAST: IOPAMIDOL 76 % IV SOLN:75 mL TECHNIQUE: CT angiography of the head and neck was obtained after the uneventful administration of 75 mL Isovue-370 intravenous contrast.Three dimensional postprocessing was performed by the technologist and sent to the workstation for review. Stenosis measurements are based on NASCET criteria. CT dose reduction technique was used, including Automated Exposure Control. COMPARISON: CT brain stroke protocol dated 04/12/2024. CTA head and neck 04/12/2024, outside hospital FINDINGS: Non-angiographic findings: No definite areas of abnormal contrast enhancement noted. Mildgeneralized parenchymal volume loss again noted with associated ex vacuo dilation of the ventricles.. There The basilar cisterns are patent. No mass effector midline shift is seen. Evaluation of the bay-white matterdifferentiation is limited on this contrast study. Other than bilateral cataract extractions, the visualized portions of the orbits, paranasal sinuses,and mastoids appear normal. No acute fracture is identified. Osteoma alongthe left frontal bone again noted. Redemonstrated. No soft tissue abnormalities are identified in the neck. Multilevel mildto moderate disc and joint degenerative changes of the spine without significant central canal stenosis. Emphysematous changes in the lungs. Angiographic findings: There is atherosclerotic disease of the aortic arch predominantly in the descending thoracic aorta with the mural thrombosis.. The configurationof the brachiocephalic vessels is typical. The innominate artery and both subclavian arteries appear normal. Midportion of the right commoncarotid artery with approximately 50% stenosis (image 180, series 7). There isalso circumferential atherosclerosis scattered throughout the right common carotid artery predominantly in the distal portion. There is atherosclerotic disease with circumferential calcified atherosclerotic plaque and central soft atherosclerotic plaque (image 247, series 7), at the right carotid bifurcation and origin of the right internal carotid artery with greater than 75% focal stenosis by NASCET criteria. Theright common and internal carotid arteries otherwise appear normal. Leftcommon carotid artery is occluded from the origin/proximal portion with onlyfaint opacification at the origin. There is also significant atherosclerosis at the left carotid bulb andalso origin of the left internal carotid artery with moderate to severestenosis accurate evaluation of the stenosis is limited secondary to diminutive caliber left internal carotid artery.. There is also decreased caliberand opacification of the left internal carotid artery including the petrousand cavernous segments, compared to the right, could be secondary to severe stenosis/occlusion at the origin and possible distal reconstitution/retrograde flow. These findings are unchanged compared to recent outside CT angiogram from 04/12/2024 Dominant right vertebral artery with the scattered areas of atherosclerosis, without causing significant stenosis throughout thecourse of including V3 segment. Nondominant left vertebral artery with areas of atherosclerosis throughout the course causing areas of hcvd-tv-pcrtzmsq stenosis predominantly in the V2 segment. There is also slightlydecreased opacification of the left vertebral artery compared to the right predominantly in the V2 segment proximally and proximal V1 segment,could be secondary to differences in technique showed normal opacification onthe prior study from 04/12/2024. Multifocal mild to moderate atherosclerotic calcifications in thebilateral cavernous segments of the internal carotid arteries left greater thanright causing focal areas of mild to moderate stenosis, unchanged compared to recent study.. Slightly diminutive caliber bilateral anterior cerebral arteries appear patent.. Mild circumferential atherosclerotic calcifications in the V4 segments of the bilateral vertebral arteries without significant stenosis. Dominant right vertebral artery. There is also small focal atherosclerotic ulceration at the origin of basilarartery without significant stenosis. Basilar artery otherwise appears patent. Slightly diminutive caliber bilateral posterior cerebral arterieshowever appear patent. No aneurysms, vascular occlusions, or intracranialstenoses are identified. IMPRESSION: 1.Multifocal atherosclerotic disease is involving multiple vasculatureas described above. There is a complete nonopacification of the left common carotid artery suggesting chronic occlusion. There is also significant atherosclerosis at the origin of left internal carotid artery and left carotid bulb causing moderate to severe stenosis. Diminutive caliber and decreased opacification of the left internal carotid artery secondary to severe proximal stenosis or occlusion with possible distal reconstitution/retrograde flow. 2.Atherosclerosis in the right carotid bulb causing more than 75%stenosis as described above. These findings are unchanged compared to prioroutside study from 04/12/2024. 3.No large vessel occlusions or significant stenosis in the intracranial vasculature. The report is dictated by Nury Green Dr, MD (vice president industrial relations) I, Asia Holliday MD have personally reviewed and interpreted this examination/study. > Interpreting Provider: Asia Holliday MD on 04/17/2024 2:15 PM Miquel London MD CT ORDERABLES * ECHO COMPLETE W BUBBLE STUDY (04/14/2024 12:49 PM CDT) IVSd 2D 1.228 cm SSM CV FUJ I PACS LVIDd 3.902 cm SSM CV FUJ I PACS LVIDs 2.616 cm SSM CV FUJ I PACS LVOT diam 1.951 cm SSM CV FUJ I PACS LVPWd 1.034 cm SSM CV FUJ I PACS LV biplane EF 66.907 % SSM CV FUJI PACS LV A2C EF 68.283 % SSM CV FUJ I PACS LV A4C EF 64.767 % SSM CV FUJ I PACS LV EDV A2C 28.523 ml SSM CV FU JI PACS LV EDV A4C 43.594 ml SSM CV FU JI PACS LV ESV A2C 9.047 ml SSM CV FU JI PACS LV ESV A4C 15.359 ml SSM CV FU JI PACS LVOT pk jamshid 94.733 cm/s SSM CV F UJI PACS LVOT VTI 18.672 cm SSM CV [facility] I PACS RV-pedro basal diam 2.697 cm SSM CV FUJI PACS RVIDd 2.57 cm SSM CV [facility] I PACS RVOT diam Doppler 1.962 cm [facility] pk jamshid 90.524 cm/s SSM CV F UJI PACS RVOT VTI 14.859 cm SSM CV [facility] I PACS LA size 4.092 cm SSM CV [facility] I PACS RA area 13.384 cm [facility] AR DECEL TIME 1.237 s SSM CV FUJI PACS AV PHT 0.359 s SSM CV FUJ I PACS AV pk jamshid regurg 296.214 cm/s [facility] VTI 117.788 cm SSM CV FUJ I PACS AV mn grad 13.465 mmHg SSM CV FU JI PACS AV pk jamshid 261.413 cm/s SSM CV FUJ I PACS AV VTI 50.251 cm SSM CV FUJ I PACS MV A pk jamshid 192.088 cm/s SSM CV F UJI PACS MV E pk jamshid 125.375 cm/s SSM CV F UJI PACS MV E' lateral jamshid 4.293 cm/s SSM CV FUJI PACS MV mn grad 8.433 mmHg SSM CV FU JI PACS MV VTI 45.255 cm SSM CV FUJ I PACS PV pk jamshid 100.099 cm/s SSM CV FUJ I PACS PV VTI 15.615 cm SSM CV FUJ I PACS TAPSE 1.816 cm SSM CV FUJ I PACS Ascending aorta 2.823 cm SSM CV FUJI PACS IVC Diam Expiration 1.042 cm SSM CV FUJI PACS Myocardial strain charge 2 unitless SSM CV FUJI PACS Anatomical Region Laterality Modality Ultrasound 04/14/2024 12:1 9 PM CDT Narrative 04/15/2024 9:13 AM CDT Summary * Left ventricle is normal in size, with normal systolic function, wall motion is grossly normal, however endocardial definition is limited, and diastolic function is indeterminate. * Right ventricle is normal in size with normal systolic function. * Intact interatrial septum visualized by 2D and color Doppler and agitated saline imaging. * There is moderate mitral valve stenosis. * There is mild aortic valve regurgitation. * Unable to assess pulmonary pressures due to a lack of tricuspid and pulmonic regurgitation. Patient Info Name: Ghazal Valadez Age: 83 years : 1940 Gender: Female Ht: 62 in Wt: 187 lb BSA: 1.96 m2 HR: 87 bpm BP: 151 / 61 mmHg Heart Rhythm: Tachycardia Exam Date: 04/14/2024 12:19 PM Patient Status: I/P Study Site: [facility] Primary Location: [facility] EStudy Info Technical Quality: Adequate Exam Type: ECHO COMPLETE W BUBBLE STUDY Indications R20.0 - Numbness and tingling R20.2 - Numbness and tingling Procedure(s) * A complete 2D, color Doppler, spectral Doppler, and M-Mode transthoracic echocardiogram was performed. Contrast/Agitated Saline Contrast / Saline: Agitated Saline Amount: 5.00 ml Staff Referring Physician: Miquel London Ordering Provider: Miquel London Attending Physician: Miquel London Bread Supervisor: Pravin Gusman Left Ventricle The left ventricle is normal in size. Left ventricular systolic function is normal with an estimated ejection fraction of 67% by biplane method of disks. There is mild concentric remodeling of the left ventricle. Left ventricular segmental wall motion is grossly normal, however endocardial definition is limited. The left ventricular diastolic function is indeterminate. Right Ventricle The right ventricle is normal in size. Right ventricular systolic function is normal. Left Atrium The left atrium is normal in size. Right Atrium The right atrium is normal in size. Atrial Septum Intact interatrial septum visualized by agitated saline and 2D and color Doppler imaging. Aortic Valve The aortic valve is trileaflet and mildly calcified. There is no aortic valve stenosis. There is mild aortic valve regurgitation. Pulmonic Valve The pulmonic valve is grossly normal. There is no pulmonic valve stenosis. There is no significant pulmonic regurgitation. Mitral Valve The mitral valve is normal and displaying restricted posterior leaflet motion. Severe posterior annular calcification. There is moderate mitral valve stenosis. There is no significant mitral valve regurgitation. Tricuspid Valve The tricuspid valve is normal. There is trace tricuspid valve regurgitation. Unable to assess pulmonary pressures due to a lack of tricuspid and pulmonic regurgitation. Inferior Vena Cava The inferior vena cava is normal in size (< 2.1 cm). Pericardium/Pleural There is no pericardial effusion. Prominent epicardial fat pad. Aorta The aortic root at the sinus of Valsalva is not well visualized. The ascending aorta is normal in size. Measurements Left Ventricular Outflow Tract Name Value Normal LVOT 2D LVOT Diameter 2.0 cm LVOT Area 3.0 cm2 LVOT Doppler LVOT Peak Velocity 0.9 m/s LVOT Peak Gradient 4 mmHg LVOT Mean Velocity 57.89 cm/s LVOT Mean Gradient 2 mmHg LVOT VTI 18.7 cm LVOT VTI/AV VTI Ratio 0.4 LVOT Stroke Volume 56 ml LVOT Stroke Volume Index 28 ml/m2 35-58 LVOT CO 10.4 l/min LVOT CI 5.3 l/min/m2 Pulmonic Valve Name Value Normal PV 2D RVOT Diameter (2D) 2.0 cm 1.7-2.7 RVOT Doppler RVOT Peak Velocity 0.9 m/s RVOT Peak Gradient 3 mmHg RVOT Mean Gradient 2 mmHg PV Doppler PV Peak Velocity 1.0 m/s PV Peak Gradient 4 mmHg PV Mean Gradient 2 mmHg PV Area (Cont Eq VTI) 2.88 cm2 PV Area Index (Cont Eq VTI) 1.46 cm2/m2 PV Area (Cont Eq Jamshid) 2.7 cm2 PV Area Index (Cont Eq Jamshid) 1.39 cm2/m2 Mitral Valve Name Value Normal MV Doppler MV Peak Gradient 19 mmHg MV Mean Gradient 8 mmHg MV DI (VTI) 2.42 MV Area (Cont Eq VTI) 1.23 cm2 MV Diastolic Function MV E Peak Velocity 1.3 m/sec MV A Peak Velocity 1.9 m/sec MV E/A 0.7 MV Decel Time (PW) 172 ms MV A Wave Duration 140 ms MV Annular TDI MV Septal e' Velocity 3 cm/s >=8 MV E/e' (Septal) 45 <=8 MV Lateral e' Velocity 4 cm/s >=10 MV E/e' (Lateral) 29 <=8 MV e' Average 4 cm/s MV E/e' (Average) 37 Tricuspid Valve Name Value Normal TV Annular TDI TV Lateral Deidre s' Velocity 16 cm/s 10-19 Aorta Name Value Normal Ascending Aorta Asc Ao Diameter 2.8 cm 1.9-3.5 Asc Ao Diameter Index 1.4 cm/m2 1.0-2.2 Septae/Shunt/Generic Name Value Normal Qp/Qs Qp/Qs 0.8 Venous Name Value Normal IVC/SVC IVC Diameter 1.0 cm <=2.1 Aortic Valve Name Value Normal AV Doppler AV Peak Velocity 2.61 m/s AV Peak Gradient 27 mmHg AV Mean Gradient 13 mmHg AV VTI 50 cm AV Area (Cont Eq VTI) 1.11 cm2 >=2.00 AV Area (Cont Eq Jamshid) 1.08 cm2 AV DI (Jamshid) 0.36 AV Regurgitation 2D LVOT Area 2.99 cm2 AV Regurgitation Doppler AR Decel Time 1,237 ms AR PHT 359 ms Ventricles Name Value Normal LV Dimensions 2D/MM IVS Diastolic Thickness (2D) 1.2 cm 0.6-0.9 LVID Diastole (2D) 3.9 cm 3.8-5.2 LVPW Diastolic Thickness (2D) 1.0 cm 0.6-0.9 IVS Systolic Thickness (2D) 1.2 cm LVID Systole (2D) 2.6 cm 2.2-3.5 LVPW Systolic Thickness (2D) 1.1 cm LV Mass (2D Cubed) 101 g 67-162 LV Mass Index (2D Cubed) 52 g/m2 43-95 Relative Wall Thickness (2D) 0.53 <=0.42 LV Fractional Shortening/Ejection Fraction 2D/MM LV Fractional Shortening (2D) 33 % 27-45 LV EF (2D Teicholz) 62 % 54-74 LV Diastolic Volume (4C MOD) 44 ml LV EF (4C MOD) 65 % LV Diastolic Volume (2C MOD) 29 ml LV EF (2C MOD) 68 % LV Diastolic Volume (BP MOD) 36 ml 46-106 LV Diastolic Volume Index (BP MOD) 18 ml/m2 29-61 LV Systolic Volume (BP MOD) 12 ml 14-42 LV Systolic Volume Index (BP MOD) 6 ml/m2 8-24 LV EF (BP MOD) 67 % 54-74 LV Diastolic Length (4C) 6.0 cm LV Systolic Length (4C) 5.0 cm LV Stroke Volume (4C MOD) 28 ml RV Dimensions 2D/MM RVID Diastole (2D) 2.6 cm 2.5-3.5 RVID Systole (2D) 2.4 cm RV Basal Diastolic Dimension 2.7 cm 2.5-4.1 RV Diastolic Length (4C) 5.0 cm 5.9-8.3 TAPSE 1.8 cm >=1.7 Atria Name Value Normal LA Dimensions LA Dimension (2D) 4.1 cm 2.7-3.8 LA Dimen Index (2D) 2.1 cm/m2 RA Dimensions RA Area (4C) 13 cm2 <=18 RA Area (4C) Index 7 cm2/m2 Report Signatures Finalized by Paolo Aragon on 04/15/2024 09:13 AM Procedure Note Paolo Aragon MD - 04/15/2024 Summary * Left ventricle is normal in size, with normal systolic function,wall motion is grossly normal, however endocardial definition is limited, and diastolic function is indeterminate. * Right ventricle is normal in size with normal systolic function. * Intact interatrial septum visualized by 2D and color Doppler andagitated saline imaging. * There is moderate mitral valve stenosis. * There is mild aortic valve regurgitation. * Unable to assess pulmonary pressures due to a lack of tricuspid and pulmonic regurgitation. Patient Info Name: Ghazal Valadez Age: 83 years : 1940 Gender: Female Ht: 62 in Wt: 187 lb BSA: 1.96 m2 HR: 87 bpm BP: 151 / 61 mmHg Heart Rhythm: Tachycardia Exam Date: 04/14/2024 12:19 PM Patient Status: I/P Study Site: [facility] Primary Location: [facility] EStudy Info Technical Quality: Adequate Exam Type: ECHO COMPLETE W BUBBLE STUDY Indications R20.0 - Numbness and tingling R20.2 - Numbness and tingling Procedure(s) * A complete 2D, color Doppler, spectral Doppler, and M-Modetransthoracic echocardiogram was performed. Contrast/Agitated Saline Contrast / Saline: Agitated Saline Amount: 5.00 ml Staff Referring Physician: Miquel London Ordering Provider: Miquel London Attending Physician: Miquel London Bread Supervisor: Pravin Gusman Left Ventricle The left ventricle is normal in size. Left ventricular systolic functionis normal with an estimated ejection fraction of 67% by biplane method ofdisks. There is mild concentric remodeling of the left ventricle. Leftventricular segmental wall motion is grossly normal, however endocardial definitionis limited. The left ventricular diastolic function is indeterminate. Right Ventricle The right ventricle is normal in size. Right ventricular systolicfunction is normal. Left Atrium The left atrium is normal in size. Right Atrium The right atrium is normal in size. Atrial Septum Intact interatrial septum visualized by agitated saline and 2D andcolor Doppler imaging. Aortic Valve The aortic valve is trileaflet and mildly calcified. There is noaortic valve stenosis. There is mild aortic valve regurgitation. Pulmonic Valve The pulmonic valve is grossly normal. There is no pulmonic valvestenosis. There is no significant pulmonic regurgitation. Mitral Valve The mitral valve is normal and displaying restricted posterior leaflet motion. Severe posterior annular calcification. There is moderate mitralvalve stenosis. There is no significant mitral valve regurgitation. Tricuspid Valve The tricuspid valve is normal. There is trace tricuspid valveregurgitation. Unable to assess pulmonary pressures due to a lack of tricuspid andpulmonic regurgitation. Inferior Vena Cava The inferior vena cava is normal in size (< 2.1 cm). Pericardium/Pleural There is no pericardial effusion. Prominent epicardial fat pad. Aorta The aortic root at the sinus of Valsalva is not well visualized. The ascending aorta is normal in size. Measurements Left Ventricular Outflow Tract Name Value Normal LVOT 2D LVOT Diameter 2.0 cm LVOT Area 3.0 cm2 LVOT Doppler LVOT Peak Velocity 0.9 m/s LVOT Peak Gradient 4 mmHg LVOT Mean Velocity 57.89 cm/s LVOT Mean Gradient 2 mmHg LVOT VTI 18.7 cm LVOT VTI/AV VTI Ratio 0.4 LVOT Stroke Volume 56 ml LVOT Stroke Volume Index 28 ml/m2 35-58 LVOT CO 10.4 l/min LVOT CI 5.3 l/min/m2 Pulmonic Valve Name Value Normal PV 2D RVOT Diameter (2D) 2.0 cm 1.7-2.7 RVOT Doppler RVOT Peak Velocity 0.9 m/s RVOT Peak Gradient 3 mmHg RVOT Mean Gradient 2 mmHg PV Doppler PV Peak Velocity 1.0 m/s PV Peak Gradient 4 mmHg PV Mean Gradient 2 mmHg PV Area (Cont Eq VTI) 2.88 cm2 PV Area Index (Cont Eq VTI) 1.46 cm2/m2 PV Area (Cont Eq Jamshid) 2.7 cm2 PV Area Index (Cont Eq Jamshid) 1.39 cm2/m2 Mitral Valve Name Value Normal MV Doppler MV Peak Gradient 19 mmHg MV Mean Gradient 8 mmHg MV DI (VTI) 2.42 MV Area (Cont Eq VTI) 1.23 cm2 MV Diastolic Function MV E Peak Velocity 1.3 m/sec MV A Peak Velocity 1.9 m/sec MV E/A 0.7 MV Decel Time (PW) 172 ms MV A Wave Duration 140 ms MV Annular TDI MV Septal e' Velocity 3 cm/s >=8 MV E/e' (Septal) 45 <=8 MV Lateral e' Velocity 4 cm/s >=10 MV E/e' (Lateral) 29 <=8 MV e' Average 4 cm/s MV E/e' (Average) 37 Tricuspid Valve Name Value Normal TV Annular TDI TV Lateral Deidre s' Velocity 16 cm/s 10-19 Aorta Name Value Normal Ascending Aorta Asc Ao Diameter 2.8 cm 1.9-3.5 Asc Ao Diameter Index 1.4 cm/m2 1.0-2.2 Septae/Shunt/Generic Name Value Normal Qp/Qs Qp/Qs 0.8 Venous Name Value Normal IVC/SVC IVC Diameter 1.0 cm <=2.1 Aortic Valve Name Value Normal AV Doppler AV Peak Velocity 2.61 m/s AV Peak Gradient 27 mmHg AV Mean Gradient 13 mmHg AV VTI 50 cm AV Area (Cont Eq VTI) 1.11 cm2 >=2.00 AV Area (Cont Eq Jamshid) 1.08 cm2 AV DI (Jamshid) 0.36 AV Regurgitation 2D LVOT Area 2.99 cm2 AV Regurgitation Doppler AR Decel Time 1,237 ms AR PHT 359 ms Ventricles Name Value Normal LV Dimensions 2D/MM IVS Diastolic Thickness (2D) 1.2 cm 0.6-0.9 LVID Diastole (2D) 3.9 cm 3.8-5.2 LVPW Diastolic Thickness (2D) 1.0 cm 0.6-0.9 IVS Systolic Thickness (2D) 1.2 cm LVID Systole (2D) 2.6 cm 2.2-3.5 LVPW Systolic Thickness (2D) 1.1 cm LV Mass (2D Cubed) 101 g 67-162 LV Mass Index (2D Cubed) 52 g/m2 43-95 Relative Wall Thickness (2D) 0.53 <=0.42 LV Fractional Shortening/Ejection Fraction 2D/MM LV Fractional Shortening (2D) 33 % 27-45 LV EF (2D Teicholz) 62 % 54-74 LV Diastolic Volume (4C MOD) 44 ml LV EF (4C MOD) 65 % LV Diastolic Volume (2C MOD) 29 ml LV EF (2C MOD) 68 % LV Diastolic Volume (BP MOD) 36 ml 46-106 LV Diastolic Volume Index (BP MOD) 18 ml/m2 29-61 LV Systolic Volume (BP MOD) 12 ml 14-42 LV Systolic Volume Index (BP MOD) 6 ml/m2 8-24 LV EF (BP MOD) 67 % 54-74 LV Diastolic Length (4C) 6.0 cm LV Systolic Length (4C) 5.0 cm LV Stroke Volume (4C MOD) 28 ml RV Dimensions 2D/MM RVID Diastole (2D) 2.6 cm 2.5-3.5 RVID Systole (2D) 2.4 cm RV Basal Diastolic Dimension 2.7 cm 2.5-4.1 RV Diastolic Length (4C) 5.0 cm 5.9-8.3 TAPSE 1.8 cm >=1.7 Atria Name Value Normal LA Dimensions LA Dimension (2D) 4.1 cm 2.7-3.8 LA Dimen Index (2D) 2.1 cm/m2 RA Dimensions RA Area (4C) 13 cm2 <=18 RA Area (4C) Index 7 cm2/m2 Report Signatures Finalized by Paolo Aragon on 04/15/2024 09:13 AM Miquel London MD ECHO CUPID * MRI Brain Wo Contrast (04/14/2024 12:09 AM CDT) Anatomical Region Laterality Modality Head Magnetic Resonan ce 04/15/2024 8:01 AM CDT Impressions 04/16/2024 2:34 PM CDT IMPRESSION: 1.Scattered small foci of acute to subacute infarcts noted along the cortical and subcortical regions of the right frontal and parietal lobes, right periventricular white matter and left centrum semiovale anteriorly as described above. No evidence of hemorrhagic transformation. Moderate burden of chronic ischemic small vessel disease. 2.Absent flow void in the left carotid artery involving left petrous segment however shows opacification on the subsequent angiogram could be secondary to slow flow from proximal stenosis or occlusion. Preliminary findings were discussed with the patient's care provider, Dr. Chang by Dr. Caba via telephone at 0107 on 04/14/2024 with readback comprehension and verification. Report dictated by Cisco Taylor MD, PhD (vice president industrial relations). I, Asia Holliday MD have personally reviewed and interpreted this examination/study. > Interpreting Provider: Asia Holliday MD on 04/16/2024 2:34 PM Narrative 04/16/2024 2:34 PM CDT PROCEDURE: MRI BRAIN WO CONTRAST, DATE/TIME OF EXAM: 04/14/2024 12:09 AM, LOCATION [facility] INDICATION: R20.0: Numbness and tingling R20.2: Numbness and tingling ADDITIONAL CLINICAL INFORMATION: Ordering Provider Reason For Exam: Stroke Technologist Note: Additional: None. COMPARISON: CT brain stroke from 04/12/2024. CTA brain and neck from 04/15/2024. EXAMINATION: Magnetic resonance imaging (MRI) of the brain without contrast TECHNIQUE: MRI of the brain was performed without contrast according to standard protocol. FINDINGS: Scattered punctate foci of increased signal along the cortex of left right frontoparietal regions on DWI images without significant decrease in ADC signal.(series 3 image [id number]). There is associated mild T2/FLAIR hyperintensity in these regions. Additional small foci of restricted diffusion noted in the right periventricular white matter/right posterior garcia radiata, left frontal lobe/centrum semiovale suggesting evolving acute infarcts (image 15, 16, series 3). No susceptibility artifact to suggest hemorrhagic transformation. No evidence of acute or chronic hemorrhage is identified. Mild to moderate volume loss with associated ex vacuo dilation of the ventricles. Volume loss is most prominent involving parietal lobes. No mass effect or midline shift is seen. Moderate to severe burden of periventricular and subcortical white matter FLAIR hyperintensities likely represent sequelae of chronic small vessel ischemic disease. Redemonstrated chronic lacunar infarcts in the bilateral centrum semiovale and bilateral basilar ganglia. The corpus callosum and sella appear normal. The posterior fossa, brainstem, and craniocervical junction appear normal. Other than bilateral cataract extractions, the visualized portions of the orbits, paranasal sinuses, and mastoids appear normal. Absent flow void in the left carotid artery involving petrous and proximal cavernous segments the distal reconstitution (image 6, 7, series 9) however opacification noted on angiogram from December 2023 suggesting slow flow. Flow voids are demonstrated in the right internal carotid arteries and basilar artery. 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 Degenerative changes to the atlantoaxial joint with pannus, without significant narrowing of the craniocervical junction.. Multilevel moderate degenerative changes to the cervical spine with reversal cervical lordosis is seen 2-3 mm anterolisthesis of C4 over C5. Procedure Note Asia Holliday MD - 04/16/2024 PROCEDURE: MRI BRAIN WO CONTRAST, DATE/TIME OF EXAM: 04/14/2024 12:09AM, LOCATION [facility] INDICATION: R20.0: Numbness and tingling R20.2: Numbness and tingling ADDITIONAL CLINICAL INFORMATION: Ordering Provider Reason For Exam: Stroke Technologist Note: Additional: None. COMPARISON: CT brain stroke from 04/12/2024. CTA brain and neck from 04/15/2024. EXAMINATION: Magnetic resonance imaging (MRI) of the brain withoutcontrast TECHNIQUE: MRI of the brain was performed without contrast according to standard protocol. FINDINGS: Scattered punctate foci of increased signal along the cortex of leftright frontoparietal regions on DWI images without significant decrease in ADC signal.(series 3 image [id number]). There is associated mild T2/FLAIR hyperintensity in these regions. Additional small foci of restricted diffusion noted in the right periventricular white matter/rightposterior garcia radiata, left frontal lobe/centrum semiovale suggesting evolving acute infarcts (image 15, 16, series 3). No susceptibility artifact to suggest hemorrhagic transformation. No evidence of acute or chronic hemorrhage is identified. Mild tomoderate volume loss with associated ex vacuo dilation of the ventricles. Volume loss is most prominent involving parietal lobes. No mass effect ormidline shift is seen. Moderate to severe burden of periventricular andsubcortical white matter FLAIR hyperintensities likely represent sequelae of chronic small vessel ischemic disease. Redemonstrated chronic lacunar infarctsin the bilateral centrum semiovale and bilateral basilar ganglia. Thecorpus callosum and sella appear normal. The posterior fossa, brainstem, and craniocervical junction appear normal. Other than bilateral cataract extractions, the visualized portions ofthe orbits, paranasal sinuses, and mastoids appear normal. Absent flow voidin the left carotid artery involving petrous and proximal cavernoussegments the distal reconstitution (image 6, 7, series 9) however opacification noted on angiogram from December 2023 suggesting slow flow. Flow voids are demonstrated in the right internal carotid arteries and basilar artery. 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 Degenerative changes to the atlantoaxial joint with pannus, without significant narrowing of the craniocervical junction.. Multilevelmoderate degenerative changes to the cervical spine with reversal cervicallordosis is seen 2-3 mm anterolisthesis of C4 over C5. IMPRESSION: 1.Scattered small foci of acute to subacute infarcts noted along the cortical and subcortical regions of the right frontal and parietallobes, right periventricular white matter and left centrum semiovale anteriorlyas described above. No evidence of hemorrhagic transformation. Moderateburden of chronic ischemic small vessel disease. 2.Absent flow void in the left carotid artery involving left petrous segment however shows opacification on the subsequent angiogram could be secondary to slow flow from proximal stenosis or occlusion. Preliminary findings were discussed with the patient's care provider,Dr. Chang by Dr. Caba via telephone at 0107 on 04/14/2024 with readback comprehension and verification. Report dictated by Cisco Taylor MD, PhD (vice president industrial relations). I, Asia Holliday MD have personally reviewed and interpreted this examination/study. > Interpreting Provider: Asia Holliday MD on 04/16/2024 2:34 PM Miquel London MD MR ORDERABLES * LIPID PROFILE (04/13/2024 4:30 AM CDT) Cholesterol Total 145 <200 mg/dL 04/13/2024 5:44 AM [facility] HDL 52 >40 mg/dL 04/13/2024 5:44 AM [facility] Comment: ATP III Classification of HDL Cholesterol: <40 mg/dL: Considered a major risk factor. >60 mg/dL: Considered a negative risk factor. LDL Calculated 78 <100 mg/dL 04/13/2024 5:44 AM [facility] Comment: ATP III Classification of LDL Cholesterol: <100 mg/dL: Optimal 100 - 129 mg/dL: Near Optimal/Above Optimal 130 - 159 mg/dL: Borderline High 160 - 189 mg/dL: High >190 mg/dL: Very High Triglycerides 74 <150 mg/dL 04/13/2024 5:44 AM [facility] Comment: ATP III Classification of Triglycerides: <150 mg/dL: Normal 150 - 199 mg/dL: Borderline High 200 - 400 mg/dL: High >500 mg/dL: Very High Blood BLOOD SPECIMEN / Unknown Lab Venipuncture / Unknown 04/13/2024 4:30 AM CDT 04/13/2024 5:10 AM CDT Miquel [place] MD LAB - CHEMISTRY ORDE [place] [facility] [address] [place] [address], [facility] [phone] * BLOOD TYPE VERIFICATION (04/12/2024 9:36 PM CDT) ABO Rh O POS 04/12/2024 10:23 PM CDT [facility] Blood Bank BLOOD SPECIMEN / Unknown Venipuncture / Unknown 04/12/2024 9:36 PM CDT 04/12/2024 10:02 PM CDT Tito Freeman MD LAB - BLOOD BANK ORD [place] [facility] [address] [place] [address], [place] [phone] * HEMOGLOBIN A1C (04/12/2024 9:35 PM CDT) Hemoglobin A1c 5.6 <=5.6 % 04/13/2024 11:29 AM CDT [facility] Estimated Average Glucose 114 mg/dL 04/13/2024 11:29 AM CDT [facility] Comment: HbA1c Interpretation: Normal : < 5.7% Pre-diabetes: 5.7-6.4% Diabetes: Equal to or greater than 6.5% Test results diagnostic of diabetes should be repeated for confirmation. Treatment target values recommended by ADA and other clinical organizations should be used to evaluate metabolic control in patients. Reference: [place] [employer], Standards of Care in Diabetes -2020 In patients 70 years and older consider HbA1c target range of 7.0-7.5% (Reference: Chencho Adan et al. JAMDA. 2012) The Sebia assay for the measurement of HbA1c is a National Glycohemoglobin Standardization Program (NGSP) certified method. Blood BLOOD SPECIMEN / Unknown Venipuncture / Unknown 04/12/2024 9:35 PM CDT 04/12/2024 9:57 PM CDT Miquel London MD LAB - CHEMISTRY KVNG RAMIREZ Performing Organization Address City/[facility]/ZIP Co de Phone Number [address] [address], [facility] [phone] * TROPONIN-I HIGH SENSITIVE REFLEX 1HOUR (04/12/2024 6:02 PM CDT) Troponin I High Sensitive 5 <=14 ng/L 04/12/2024 6:49 PM CDT [facility] [place] Troponin I HS 0 <6 ng/L 04/12/2024 6:49 PM CDT [facility] Blood BLOOD SPECIMEN / Unknown Venipuncture / Unknown 04/12/2024 6:02 PM CDT 04/12/2024 6:10 PM CDT Miquel London MD LAB - CHEMISTRY KVNG RAMIREZ Performing Organization Address [facility]/ZIP Co de Phone Number [address] [address], [facility] [phone] * EKG 12-LEAD (04/12/2024 4:42 PM CDT) Ventricular Rate 86 BPM SL MUSE Atrial Rate 86 BPM [facility] M[facility] P-R Interval 192 ms [facility] QRS Duration ms 84 ms [facility] Q-T Interval ms 352 ms [facility] M[facility] QTC Calculation (Bezet) 421 ms [facility] MUSE Calculated P [place] 62 degrees SL MUSE Calculated R [place] 59 degrees SL MUSE Calculated T [place] 52 degrees SLH MUSE Interpretation EKG NORMAL SINUS RHYTHM NORMAL ECG NO PREVIOUS ECGS AVAILABLE Confirmed by SADIA BIRD MD ([id number]) on 04/15/2024 9:05:12 AM [facility] MUSE 04/12/2024 4:42 PM CDT 04/15/2024 9:05 AM CDT Tito Freeman MD ECG ORDERABLES Performing Organization Address [facility] Co de Phone Number [facility] MUSE * PT-INR [facility] (04/12/2024 4:33 PM CDT) [facility] PT 12.5 12.1 - 14.8 Seconds 04/12/2024 5:00 PM CDT [facility] INR 1.0 See Comment 04/12/2024 5:00 PM CDT [facility] Comment:The suggested therap eutic range for standard coumadin (warfarin) therapy is an INR of 2.0-3.0. For high-risk patients (Mechanical Mitral Valve Prosthesis, etc.), the suggested prophylactic therapeutic range is an INR of 2.5-3.5. Blood BLOOD SPECIMEN / Unknown Venipuncture / Unknown 04/12/2024 4:33 PM CDT 04/12/2024 4:41 PM CDT Tito Freeman MD LAB - COAGULATION OR DERABLES Performing Organization Address [facility]/ZIP Co de Phone Number [address] [address], [facility] [phone] * TROPONIN-I HIGH SENSITIVE BASELINE + 1HR (04/12/2024 4:33 PM CDT) [facility] Troponin I High Sensitive 5 <=14 ng/L 04/12/2024 5:07 PM CDT [facility] Blood BLOOD SPECIMEN / Unknown Venipuncture / Unknown 04/12/2024 4:33 PM CDT 04/12/2024 4:41 PM CDT Miquel London MD LAB - CHEMISTRY KVNG RAMIREZ Performing Organization Address [facility]/ZIP Co de Phone Number [address] [address], [place] [phone] * TYPE + SCREEN PANEL (04/12/2024 4:33 PM CDT) [facility] Antibody Screen NEG 5:28 PM CDT [facility] ABO Rh O POS 04/12/2024 5:28 PM T [facility] Blood Bank BLOOD SPECIMEN / Unknown Venipuncture / Unknown 04/12/2024 4:33 PM CDT 04/12/2024 4:45 PM CDT Tito Freeman MD LAB - BLOOD BANK ORD ERABLES [facility] [address] [place] [address], [facility] [phone] * (ABNORMAL) CBC W AUTO DIFFERENTIAL (04/12/2024 4:33 PM CDT) WBC 11.0(H) 4.0 - 10.7 x10E9/L 04/12/2024 4:47 PM [facility] RBC Count 4.64 3.90 - 5.20 x10E12/L 04/12/2024 4:47 PM [facility] Hemoglobin 12.6 11.9 - 15.8 g/dL 04/12/2024 4:47 PM [facility] Hematocrit 39.8 34.8 - 46.1 % 04/12/2024 4:47 PM [facility] MCV 85.8 80.0 - 98.0 fL 04/12/2024 4:47 PM [facility] MCH 27.2 26.7 - 33.6 pg 04/12/2024 4:47 PM [facility] MCHC 31.7 31.7 - 36.3 g/dL 04/12/2024 4:47 PM [facility] RDW-CV 16.2(H) 11.3 - 14.8 % 04/12/2024 4:47 PM [facility] Platelet Count 229 150 - 420 x10E9/L 04/12/2024 4:47 PM [facility] MPV 10.0 7.8 - 11.4 fL 04/12/2024 4:47 PM [facility] Neutrophil % 74.9(H) 41.0 - 74.0 % 04/12/2024 4:47 PM [facility] Lymphocyte % 13.1(L) 17.0 - 47.0 % 04/12/2024 4:47 PM [facility] Monocyte % 9.6 3.0 - 11.0 % 04/12/2024 4:47 PM [facility] Eosinophil % 1.5 0.0 - 7.0 % 04/12/2024 4:47 PM [facility] Basophil % 0.5 0.0 - 1.6 % 04/12/2024 4:47 PM [facility] Immature Granulocytes % 0.4 0.0 - 1.0 % 04/12/2024 4:47 PM [facility] Neutrophil Absolute 8.22(H) 1.60 - 7.50 x10E9/L 04/12/2024 4:47 PM [facility] Lymphocyte Absolute 1.44 1.00 - 4.40 x10E9/L 04/12/2024 4:47 PM [facility] Monocyte Absolute 1.05(H) 0.15 - 1.00 x10E9/L 04/12/2024 4:47 PM [facility] Eosinophil Absolute 0.16 0.00 - 0.60 x10E9/L 04/12/2024 4:47 PM [facility] Basophil Absolute 0.05 0.00 - 0.13 x10E9/L 04/12/2024 4:47 PM [facility] Blood BLOOD SPECIMEN / Unknown Venipuncture / Unknown 04/12/2024 4:33 PM CDT 04/12/2024 4:41 PM CDT Tito Freeman MD LAB - HEMATOLOGY ORD ERABLES [facility] [address] [place] [address], [facility] [phone] * (ABNORMAL) COMPREHENSIVE METABOLIC PANEL (04/12/2024 4:33 PM CDT) BUN 40(H) 7 - 26 mg/dL 04/12/2024 5:04 PM T [facility] Creatinine 1.21(H) 0.56 - 0.96 mg/dL 04/12/2024 5:04 PM [facility] Sodium 141 136 - 145 mmol/L 04/12/2024 5:04 PM [facility] Potassium 4.8(H) 3.5 - 4.5 mmol/L 04/12/2024 5:04 PM [facility] Chloride 111(H) 98 - 107 mmol/L 04/12/2024 5:04 PM [facility] CO2 22 22 - 29 mmol/L 04/12/2024 5:04 PM [facility] Glucose 103 70 - 115 mg/dL 04/12/2024 5:04 PM [facility] Calcium 9.0 8.4 - 10.2 mg/dL 04/12/2024 5:04 PM [facility] Protein Total 6.6 6.0 - 8.3 g/dL 04/12/2024 5:04 PM [facility] Albumin 3.3(L) 3.4 - 5.0 g/dL 04/12/2024 5:04 PM [facility] Bilirubin Total 0.4 0.2 - 1.2 mg/dL 04/12/2024 5:04 PM [facility] Alkaline Phosphatase 68 40 - 150 U/L 04/12/2024 5:04 PM [facility] ALT 15 5 - 55 U/L 04/12/2024 5:04 PM [facility] AST 16 5 - 34 U/L 04/12/2024 5:04 PM [facility] Anion Gap 8 6 - 16 04/12/2024 5:04 PM [facility] BUN/Creatinine Ratio 33(H) 7 - 23 04/12/2024 5:04 PM [facility] Osmolality Calculated 302(H) 275 - 295 mOsm/kg 04/12/2024 5:04 PM [facility] Albumin/Globulin Ratio 1.0(L) 1.1 - 2.3 04/12/2024 5:04 PM [facility] eGFR by CKD-EPI 44(L) >=90 mL/min/1.7 3 m2 04/12/2024 5:04 PM CDT [facility] Blood BLOOD SPECIMEN / Unknown Venipuncture / Unknown 04/12/2024 4:33 PM CDT 04/12/2024 4:41 PM CDT Tito Freeman MD LAB - CHEMISTRY KVNG RAMIREZ [facility] Organization Address City/State/ZIP Co de Phone Number [facility] [address] [place] [address], [facility] [phone] * CT BRAIN - Stroke (04/12/2024 4:28 PM CDT) Anatomical Region Laterality Modality Head Computed Tomogra phy 04/12/2024 4:37 PM CDT Impressions 04/12/2024 4:46 PM CDT IMPRESSION: No acute intracranial hemorrhage or large vascular territory infarct. Results of this exam were verbally discussed by Dr. Sri Galindo with Dr. Chang on 04/12/2024 at 4:29 PM for a Critical Stroke Protocol with readback confirmation and verification. The images were reviewed by attending physician Dr. Vno Harmon prior to this communication > Interpreting Provider: Von Harmon MD, PhD on 04/12/2024 4:46 PM Narrative 04/12/2024 4:46 PM CDT EXAM: CT BRAIN STROKE, DATE/TIME OF EXAM: 04/12/2024 4:29 PM, LOCATION: [facility] HISTORY: Code Stroke ADDITIONAL CLINICAL INFORMATION: Ordering Provider Reason For Exam: Stroke code: Left upper extremity numbness and tingling. EXAMINATION: CT scan of the head without intravenous contrast TECHNIQUE: CT of the head was performed without intravenous contrast according to standard protocol. CT dose reduction technique was used, including Automated Exposure Control. COMPARISON: Head CT 09/04/2010. FINDINGS: Contrast opacification of the major intracranial arteries and dural venous sinuses that is suggestive of recent intravenous contrast administration. Within this limitation, the following assessment is made: BRAIN PARENCHYMA: No acute hemorrhage, large vascular territory infarct, or mass effect. ASPECTS: 10 Small chronic lacunes of the left frontal lobe centrum semiovale periventricular white matter and left external capsule/subinsular region in addition to a tiny chronic lacune of the right frontal lobe centrum semiovale. Scattered and confluent white matter hypodensities, which are nonspecific but likely 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 Wkad-nb-yofdxpwt cerebral volume loss with mild ex vacuo dilation of the lateral ventricles. VENTRICLES/EXTRA-AXIAL SPACES: No evidence of hydrocephalus. No extra-axial collection. Basal cisterns are patent. EXTRACRANIAL STRUCTURES: No acute or suspicious osseous abnormality. Mild degenerative changes of the right temporomandibular joint. 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 Normal soft tissues. Visualized paranasal sinuses and mastoids demonstrate no significant abnormality. Bilateral lens replacement; otherwise, orbits are unremarkable. Lkou-wy-xhihegsy calcific atherosclerosis of the carotid siphons and mild calcific atherosclerosis of the vertebral artery V4 segments. Small amount of cerumen within the external auditory canals. Procedure Note Von Harmon MD - 04/12/2024 EXAM: CT BRAIN STROKE, DATE/TIME OF EXAM: 04/12/2024 4:29 PM, LOCATION:[facility] HISTORY: Code Stroke ADDITIONAL CLINICAL INFORMATION: Ordering Provider Reason For Exam: Stroke code: Left upper extremity numbness and tingling. EXAMINATION: CT scan of the head without intravenous contrast TECHNIQUE: CT of the head was performed without intravenous contrast according to standard protocol. CT dose reduction technique was used, including Automated Exposure Control. COMPARISON: Head CT 09/04/2010. FINDINGS: Contrast opacification of the major intracranial arteries and duralvenous sinuses that is suggestive of recent intravenous contrastadministration. Within this limitation, the following assessment is made: BRAIN PARENCHYMA: No acute hemorrhage, large vascular territory infarct,or mass effect. ASPECTS: 10 Small chronic lacunes of the left frontal lobe centrum semiovale periventricular white matter and left external capsule/subinsular regionin addition to a tiny chronic lacune of the right frontal lobe centrum semiovale. Scattered and confluent white matter hypodensities, which are nonspecific but likely represents the sequela of chronicmicroangiopathic change. Liox-qg-obxalyix cerebral volume loss with mild ex vacuodilation of the lateral ventricles. VENTRICLES/EXTRA-AXIAL SPACES: No evidence of hydrocephalus. Noextra-axial collection. Basal cisterns are patent. EXTRACRANIAL STRUCTURES: No acute or suspicious osseous abnormality.Mild degenerative changes of the right temporomandibular joint. 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 Normal soft tissues. Visualized paranasal sinusesand mastoids demonstrate no significant abnormality. Bilateral lens replacement; otherwise, orbits are unremarkable. Okoh-wi-skexnhtomyseaess atherosclerosis of the carotid siphons and mild calcific atherosclerosisof the vertebral artery V4 segments. Small amount of cerumen within the external auditory canals. IMPRESSION: No acute intracranial hemorrhage or large vascular territory infarct. Results of this exam were verbally discussed by Dr. Sri Galindo with on 04/12/2024 at 4:29 PM for a Critical Stroke Protocol with readback confirmation and verification. The images were reviewed by attending physician Dr. Von Harmon prior to this communication > Interpreting Provider: Von Harmon MD, PhD on 04/12/2024 4:46 PM [address] MD CT ORDERABLES * INR WHOLE BLOOD - POINT OF CARE (IP) STROKE (04/12/2024 4:25 PM CDT) INR 1.0 0.9 - 1.2 04/12/2024 4:28 PM CDT [facility] Device [id number] 04/12/2024 4:28 PM CDT [facility] Ground Defence Officer ID [id number] 04/12/2024 4:28 PM CDT [facility] Blood BLOOD SPECIMEN / Unknown 04/12/2024 4:25 PM CDT 04/12/2024 4:28 PM CDT Geoff Gerber MD LAB - POINT OF CARE ORDERABLES [facility] [address] [place] [address], [facility] [phone] * (ABNORMAL) CREATININE - POCT INTERFACED (04/12/2024 4:24 PM CDT) Creatinine POCT 1.34(H) 0.30 - 1.30 mg/dL 04/12/2024 4:29 PM CDT [facility] eGFR 39(L) >=90 mL/min/1.7 3 m2 04/12/2024 4:29 PM CDT [facility] Blood BLOOD SPECIMEN / Unknown 04/12/2024 4:24 PM CDT 04/12/2024 4:28 PM CDT Provider Unknown LAB - POINT OF CARE ORDERABLES [facility] [address] [place] [address], [facility] [phone] * XR CHEST CONTRACT READ (02/07/2023 12:27 PM CDT) Only the most recent of2 resultswithin the time period is included. Narrative [facility] - 02/07/2023 12:27 PM CDT No clinical interpretation provided, images available for review. Mitchell Moses MD DIAGNOSTIC IMAGING O RDERABLES [facility] Care Teams Preprint Analyst Relationship Specialty Start Date End Date Hayden Oreilly MD [address] [place] [address] PCP - General Family Medicine 08/17/21
--- OUTSIDE RECORDS SUMMARY | 2024-10-26 17:09 | XMS_ITS | Encounter Summary ---
Author Organization [facility] Address [address] [place] [address] Care Team Providers Care Carpentry Supervisor Name Role Phone Hayden Oreilly MD Primary Care Provi erinn Pipo Richardson MD Unavailable [phone] Reason for Visit * Reason Onset Date Comments Medical Question/Miscellaneous 10/18/2024 Encounter Details Date Type Department Care Team (Late st Contact Info) Description 10/18/2024 Telephone [facility] Family Medicine [address] [place] [address] Hayden Oreilly MD [address] [place] [address] Medical Question/Miscellaneou s Social History Tobacco Use Types Packs/Day Years Used Date Smoking Tobacco: Former Cigarettes Q uit: 09/04/1992 Smokeless Tobacco: Never Comments:Quit 20 years ago Alcohol Use Standard Drinks/Week Comments Not Currently 0 (1 standard drink = 0.6 oz pur e alcohol) [facility] Utilities Answer Date Recorded In the past 12 months has [employer], gas, oil, or water company threatened to shut off services in your [...] often do you attend chur ch or church services? Never 05/09/2024 Do you belong to any clubs o r organizations such as roman catholic groups, unions, fraternal or athletic groups, or [...] any time in the past 12 m [facility], were you homeless or living in a [facility] (including now)? No 05/09/2024 Personal Safety Answer Date Recorded Have you ever been in or are you currently in a harmful physical or emotional relationship or is someone making you feel afraid or unsafe? 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 STRATE[employer]IC MARKETING ASSOCIATE Gender Identity Not on file Sexual Orientation Not on file documented as of this encounter Miscellaneous Notes * Telephone Encounter - Darlene Rosario MA - 10/22/2024 1:39 PM CST Spoke with patient she is going to call the insurance company to see if she can get on a payment plan. She is currently admitted to [facility] for bronchitis because her O2 dropped down to 92%. TE[employer]IC MARKETING ASSOCIATE * Telephone Encounter - Hayden Oreilly MD - 10/18/2024 12:11 PM STRATEGIC MARKETING ASSOCIATE There is no alternative. If we have Luis we can give her that but she will still run into the same problem until the deductible is met, just like every other year TEGIC MARKETING ASSOCIATE * Telephone Encounter - Darlene Rosario MA - 10/18/2024 11:37 AM STRATEGIC MARKETING ASSOCIATE She is unable to afford even if it possible due to deductible She is requesting an alternative medication. TEGIC MARKETING ASSOCIATE * Telephone Encounter - Hayden Oreilly MD - 10/18/2024 11:08 AM STRATEGIC MARKETING ASSOCIATE She likely has to pay her deductible 1st to get any inhaler TEGIC MARKETING ASSOCIATE * Telephone Encounter - Miriam Laurent MA - 10/18/2024 9:55 AM CST Medical Question/Miscellaneous Caller???s Concern: Patient was calling back to let the office know that the new inhaler would cost$700 so the patient told them to cancel it. Does message need to be routed? Yes-FYI Only TEGIC MARKETING ASSOCIATE documented in this encounter Plan of Treatment Not on file documented as of this encounter Visit Diagnoses Not on filedocumented in this encounter Care Teams Carpentry Supervisor Relationship Specialty Start Date End Date Hayden Oreilly MD [address] [facility] [address] [facility] [address] [place] [address] PCP - General Family Medicine 01/31/19 Pipo Richardson MD [address] [facility] [address] [place] [address] Surgeon Vascular Surgery 02/27/24 documented as of this encounter
--- OUTSIDE RECORDS SUMMARY | 2024-10-26 17:09 | XMS_ITS | CONTINUITY OF CARE DOCUMENT ---
Author Name henrietta shrestha Address Unknown Organization [facility] Address [address] [place] [address] Phone [phone] Care Team Providers Care Supervisor [place] Name Role Phone Farshad JOE, Nannette Unavailable Nannette Yen MD Unavailable [phone] INSURANCE PROVIDERS Payer name Policy type / Coverage type [employer] red republican ID [id number] PAY [place] MEDIC[place] Medicare [id number]
--- OUTSIDE RECORDS SUMMARY | 2024-10-26 17:09 | XMS_ITS | Encounter Summary ---
Author Organization [facility] Healthcare Address [address] [place] [address] Care Team Providers Care Biological Science Technician Name Role Phone Hayden Oreilly MD Primary Care Provi erinn Pipo Richardson MD Unavailable [phone] Reason for Visit * Reason Onset Date Comments Medication Refill Request 10/26/2024 Encounter Details Date Type Department Care Team (Late st Contact Info) Description 10/26/2024 Nurse Triage [facility] Medical Group Family Medicine [address] [place] [address] Hayden Oreilly MD [address] [place] [address] Social History Tobacco Use Types Packs/Day Years Used Date Smoking Tobacco: Former Cigarettes Q uit: 09/04/1992 Smokeless Tobacco: Never Comments:Quit 20 years ago Alcohol Use Standard Drinks/Week Comments Not Currently 0 (1 standard drink = 0.6 oz pur e alcohol) [facility] Utilities Answer Date Recorded In the past 12 months has [employer], gas, oil, or water company threatened to [...] often do you attend chur ch or alevism services? Never 05/09/2024 Do you belong to any clubs o r organizations such as jew groups, unions, fraternal or athletic groups, or [...] any time in the past 12 m [facility], were you homeless or living in a jail (including now)? No 05/09/2024 Personal Safety Answer Date Recorded Have you ever been in or are you currently in a harmful physical or emotional relationship or is someone making you feel afraid or unsafe? 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 STAFF RN Gender Identity Not on file Sexual Orientation Not on file documented as of this encounter Ordered Prescriptions Prescription Sig Dispense Quantity Refills Last Filled Start Date End Date albuterol 2.5 mg /3 mL (0.083 %) nebulizer solution Take 3 mL (2.5 mg total) by nebulization every 6 (six) hours as needed for wheezing or shortness of breath 75 mL 10/26/2024 documented in this encounter Miscellaneous Notes * Telephone Encounter - Melissa Smith RN - 10/26/2024 12:39 PM CST Patient called requesting refill of Albuterol nebulizer solution. Albuterol inhaler sent to pharmacy yesterday per Dr. Oreilly. She is using her inhaler and states it helps a little bit. She is not in distress but states her breathing is not the greatest. She was recently hospitalized and discharged 3 days ago with pneumonia. She is on Omnicef. She is alert and speaking in complete sentences. [facility] as [facility] chart [place] sent to Special Effects Artist Provider requesting refill of Albuterol Nebulizer solution. Response received that Rx for Albuterol Nebulizer solution being sent to pharmacy now. Patient to go to ER if worsens. Patient verbalized understanding. Reason for Disposition [1] Prescription refill request for ESSENTIAL medicine (i.e., likelihood of harm to patient if not taken) AND [2] triager unable to refill per department policy Protocols used: Medication Refill and Renewal [id number]-PD F RN * Telephone Encounter - Melissa Smith RN - 10/26/2024 12:33 PM CST Regarding: Nebulizer solution needed, trouble breathing ----- Message from Kisha Louis sent at 10/26/2024 12:32 PM STAFF RN ----- Re: cough sent but the albuterol inhaler was sent, in need of the nebulizer solution, trouble breathing, hs the inhaler F RN documented in this encounter Plan of Treatment Not on file documented as of this encounter Visit Diagnoses Not on filedocumented in this encounter Discontinued Medications Medication Sig Discontinue Reason Start Date End Da te albuterol 2.5 mg /3 mL (0.083 %) nebulizer solution Take 3 mL (2.5 mg total) by nebulization every 6 (six) hours as needed for wheezing Reorder 10/26/2024 documented as of this encounter Care Teams Biological Science Technician Relationship Specialty Start Date End Date Hayden Oreilly MD [address] [address] PCP - General Family Medicine 01/31/19 Pipo Richardson MD [address] [address] Surgeon Vascular Surgery 02/27/24 documented as of this encounter
--- OUTSIDE RECORDS SUMMARY | 2024-10-26 17:09 | XMS_ITS | Encounter Summary ---
Author Organization [facility] Healthcare Address [address] [place] [address] Care Team Providers Care Packing Line Worker Name Role Phone Hayden Oreilly MD Primary Care Provi erinn Pipo Richardson MD Unavailable [phone] Encounter Details Date Type Department Care Team (Late st Contact Info) Description 10/25/2024 Orders Only [facility] Medical Group Virtual Care [address] [place] [phone] Cony [place]aba NP [address] [place] [address] Social History Tobacco Use Types Packs/Day Years Used Date Smoking Tobacco: Former Cigarettes Q uit: 09/04/1992 Smokeless Tobacco: Never Comments:Quit 20 years ago Alcohol Use Standard Drinks/Week Comments Not Currently 0 (1 standard drink = 0.6 oz pur e alcohol) [facility] Utilities Answer Date Recorded In the past 12 months has [employer], gas, oil, or water company threatened to [...] week 05/09/2024 How often do you attend [facility] or taoist services? Never 05/09/2024 Do you belong to any clubs o r organizations such as buddhist groups, unions, fraternal or athletic groups, or [...] any time in the past 12 m [facility], were you homeless or living in a residential (including now)? No 05/09/2024 Personal Safety Answer Date Recorded Have you ever been in or are you currently in a harmful physical or emotional relationship or is someone making you feel afraid or unsafe? 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 WOOD FENCE ERECTOR Gender Identity Not on file Sexual Orientation Not on file documented as of this encounter Ordered Prescriptions Prescription Sig Dispense Quantity Refills Last Filled Start Date End Date cefdinir (OMNICEF) 300 mg capsule Take 1 capsule (300 mg total) by mouth 2 (two) times a day for 5 days 10 capsule 10/25/2024 documented in this encounter Plan of Treatment Not on file documented as of this encounter Visit Diagnoses Not on filedocumented in this encounter Care Teams Packing Line Worker Relationship Specialty Start Date End Date Hayden Oreilly MD [address] [address] PCP - General Family Medicine 01/31/19 Pipo Richardson MD [address] [place] [address] Surgeon Vascular Surgery 02/27/24 documented as of this encounter
--- OUTSIDE RECORDS SUMMARY | 2024-10-26 17:09 | XMS_ITS | Encounter Summary ---
Author Organization [facility] Healthcare Address [address] [place] [address] Care Team Providers Care Environmental Technology Professor Name Role Phone Hayden Oreilly MD Primary Care Provi erinn Pipo Richardson MD Unavailable [phone] Reason for Visit * Reason Onset Date Comments Diarrhea 10/25/2024 Encounter Details Date Type Department Care Team (Late st Contact Info) Description 10/25/2024 Nurse Triage [facility] Medical Group Family Medicine [address] [place] [address] Hayden Oreilly MD [address] [place], [place] [id number] Social History Tobacco Use Types Packs/Day Years Used Date Smoking Tobacco: Former Cigarettes Q uit: 09/04/1992 Smokeless Tobacco: Never Comments:Quit 20 years ago Alcohol Use Standard Drinks/Week Comments Not Currently 0 (1 standard drink = 0.6 oz pur e alcohol) [facility] Utilities Answer Date Recorded In the past 12 months has [email or web address], gas, oil, or water company threatened to [...] often do you attend chur ch or holiness services? Never 05/09/2024 Do you belong to any clubs o r organizations such as holiness groups, unions, fraternal or athletic groups, or [...] any time in the past 12 m [facility], were you homeless or living in a fpc (including now)? No 05/09/2024 Personal Safety Answer Date Recorded Have you ever been in or are you currently in a harmful physical or emotional relationship or is someone making you feel afraid or unsafe? 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 STOCK SELECTOR Gender Identity Not on file Sexual Orientation Not on file documented as of this encounter Miscellaneous Notes * Telephone Encounter - Mansi Dickson RN - 10/25/2024 8:43 PM CST Patient was discharged from the hospital on Monday. Pneumonia. Today she began to have nausea and stomachache. Patient believes the antibiotic are making her sick. Has not taken it today. Levofloxacin 500 mg, Once a day X Five Days. Four doses left. Took doses Monday and . 7 or more episodes of looser stools. Patient took imodium this evening to halt diarrhea. Unable to wear underwear due to bloating and tenderness to touch. No blood in stool. Some weakness. No lightheadedness. Patient has no desire to continue antibiotic as it's caused the same symptoms in the past. Per OCP: Stop Levaquin. cefdinir x5 days sent to pharmacy. Follow up with PCP if the symptoms persist Reason for Disposition SEVERE diarrhea (e.g., 7 or more times / day more than normal) Protocols used: Diarrhea on Fuzbusvzyvc-Osuvk-AI K SELECTOR * Telephone Encounter - Mansi Dickson RN - 10/25/2024 8:39 PM CST Regarding: Chills diarrhea ----- Message from Ashleigh Shin sent at 10/25/2024 8:33 PM STOCK SELECTOR ----- Chief concern: Chills diarrhea Duration: Monday Callback #: [phone] Additional Information: Released from hospital Monday for pneumonia K SELECTOR documented in this encounter Plan of Treatment Not on file documented as of this encounter Visit Diagnoses Not on filedocumented in this encounter Care Teams Environmental Technology Professor Relationship Specialty Start Date End Date Hayden Oreilly MD [address] [facility] [address] [facility] [address] [place] [address] PCP - General Family Medicine 01/31/19 Pipo Richardson MD [address] [facility] [place] [address] Surgeon Vascular Surgery 02/27/24 documented as of this encounter
--- OUTSIDE RECORDS SUMMARY | 2024-10-26 17:09 | XMS_ITS | Encounter Summary ---
Author Organization [facility] Healthcare Address [address] [place] [address] Care Team Providers Care Developer Trading Systems Name Role Phone Hayden Oreilly MD Primary Care Provi erinn Pipo Richardson MD Unavailable [phone] Reason for Visit * Reason Onset Date Comments LAVELL Questions 10/25/2024 Encounter Details Date Type Department Care Team (Late st Contact Info) Description 10/25/2024 Telephone [facility] Medical Group Family Medicine [address] [place] [address] Hayden Oreilly MD [address] [place] [address] LAVELL Questions Social History Tobacco Use Types Packs/Day Years Used Date Smoking Tobacco: Former Cigarettes Q uit: 09/04/1992 Smokeless Tobacco: Never Comments:Quit 20 years ago Alcohol Use Standard Drinks/Week Comments Not Currently 0 (1 standard drink = 0.6 oz pur e alcohol) [facility] Utilities Answer Date Recorded In the past 12 months has [employer] electric, gas, oil, or water company threatened [...] often do you attend chur ch or pentecostalism services? Never 05/09/2024 Do you belong to any clubs o r organizations such as faith groups, unions, fraternal or athletic groups, or [...] any time in the past 12 m [facility], were you homeless or living in a senior living (including now)? No 05/09/2024 Personal Safety Answer Date Recorded Have you ever been in or are you currently in a harmful physical or emotional relationship or is someone making you feel afraid or unsafe? 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 HUB LEAD Gender Identity Not on file Sexual Orientation Not on file documented as of this encounter Miscellaneous Notes * Telephone Encounter - Jessica Stapleton MA - 10/25/2024 10:29 AM CST Records requested. Patient is aware. LEAD * Telephone Encounter - Myrna Gamboa NP - 10/25/2024 9:35 AM HUB LEAD We do not have those records, but make sure she is eating before she takes her antibiotic and drinking plenty of water. LEAD * Telephone Encounter - Yumiko Blue - 10/25/2024 9:20 AM CST LAVELL Questions (Message from [facility] Access Center-Slot Operations Manager): Has patient been discharged at time of call? Yes Date Admitted: 10/21/24 Date Discharged: 10/23/24 Facility Admitted To: [facility] in [place] Reason for Stay? Pneumonia If prescribed new medications, do you have any questions or concerns? Yes Do you have enough medication to get you to your follow-up appointment? yes Since being released do you feel better, the same, or worse? better Date of LAVELL Appointment: 10.28.24 Do you have transportation to the appointment? Yes Additional Comments: The antibiotic given to her at the hospital is make her nauseous yet hungry atthe same time. Does message need to be routed? Yes-Action Needed LEAD documented in this encounter Plan of Treatment Not on file documented as of this encounter Visit Diagnoses Not on filedocumented in this encounter Care Teams Developer Trading Systems Relationship Specialty Start Date End Date Hayden Oreilly MD [address] [facility] [address] [place] [address] PCP - General Family Medicine 01/31/19 Pipo Richardson MD [address] [place] [address] Surgeon Vascular Surgery 02/27/24 documented as of this encounter
--- OUTSIDE RECORDS SUMMARY | 2024-10-26 17:09 | XMS_ITS | Clinical Summary ---
Author Organization [facility] Address [address] [place] [address] Care Team Providers Care Trucker Hand Name Role Phone Hayden Oreilly MD Primary Care Provi erinn Source Comments [facility],non-owned Affiliates and Associated Physician Practices is amultiple site organization consisting of ambulatory clinics and hospital sitesin [place], [place], [place] and [place]. This disclosure is being madepursuant to the Care Everywhere program and may not contain all information available regarding this patient. Last updated 18.[facility] Allergies No known active allergies Medications * Be aware that medications may not be up to date on this document. Alwaysverify current medications with the patient. Medication Sig Dispensed Refills Start Date End Date Status albuterol (Proventil;Ventolin) (2.5 MG/3ML) 0.083% nebulizer solution Inhale 2.5 (two and one-half) mg by mouth every 6 hours as needed Active levothyroxine (Synthroid) 125 MCG tablet Take 1 (one) tablet by mouth daily before breakfast 02/28/2023 Active pantoprazole EC (Protonix) 40 MG tablet Take 1 (one) tablet by mouth once daily 01/05/2024 Active valsartan-hydroCHLOR Othiazide (Diovan HCT) 160-25 MG tablet Take 1 (one) tablet by mouth once daily 02/17/2024 Active alendronate (Fosamax) 70 MG tablet Take 1 (one) tablet by mouth every 7 days before meal 02/12/2024 Active Cholecalciferol 50 MCG (2000 UT) Take 2.5 (two and one-half) tablets by mouth once daily Active meloxicam (Mobic) 15 MG tablet Take 1 (one) tablet by mouth once daily 12/07/2023 Active aspirin (Aspirin) 81 MG chew tablet Take 1 (one) tablet by mouth once daily 90 tablet 3 04/16/2024 Active atorvastatin (Lipitor) 40 MG tablet Take 1 (one) tablet by mouth at bedtime 90 tablet 3 04/15/2024 Active clopidogrel (plaVIX) 75 MG tablet Take 1 (one) tablet by mouth once daily 90 tablet 3 04/16/2024 Active Active Problems Problem Noted Date Diagnosed Date Cerebrovascular accident (CVA) 05/01/2024 Carotid artery occlusion 04/14/2024 Carotid occlusion, left 04/14/2024 Acute ischemic stroke 04/13/2024 Carotid stenosis 04/13/2024 Weakness 04/12/2024 Numbness and tingling 04/12/2024 COPD (chronic obstructive pulmonary disease) 05/2024 Encounters Date Type Department Care Team Description 10/03/2024 Travel 08/29/2024 1:10 AM HR BUSINESS PARTNER CONSULTANT Clinical Support [facility] - Cardiology [address] [id number] Cerebrovascular accident (CVA), unspecified mechanism (HCC) from Last 3 Months Social History Tobacco Use Types Packs/Day Years [...] Recorded Patient Health Questionnaire-2 Score 0 04/14/2024 [facility] of Occupat ional Health - Occupational Stress [...] place to sleep or slept in a snf (including now)? No 04/12/2024 Sex and Gender [...] Mass Index 33.65 05/28/2024 2:52 PM CDT Plan of Treatment Upcoming Encounters Date Type Department Care Team (Late st Contact Info) Description 11/07/2024 1:10 AM HR BUSINESS PARTNER CONSULTANT Clinical Support [facility] - Cardiology [address], [address] [address] 11/26/2024 10:20 AM CDT Office Visit [facility] - Cardiology [address], [address] [address] Katie Quiles MD [address] [address] 12/12/2024 1:10 AM CDT Clinical Support [facility] - Cardiology [address], [address] [address] 01/16/2025 1:10 AM CDT Clinical Support [facility] - Cardiology [address], [address] [address] 02/20/2025 1:10 AM CDT [facility] Support [facility] [address], [address] [address] 03/27/2025 1:10 AM CDT Clinical Support [facility] - Cardiology [address], [address] [address] 05/01/2025 1:10 AM CDT [facility] [address], [address] [address] 06/05/2025 1:10 AM CDT Clinical [facility] Cardiology [address], [address] [address] Health Maintenance Due Date Last Done Comments DTAP/TDAP/TD VACCINES (1 - Tdap) 1957 PNEUMOCOCCAL VACCINE 50+ (1 of 2 - PCV) 1957 ZOSTER VACCINE (1 of 2) 1988 Respiratory Syncytial Virus (RSV) Vaccine Pt: or over 60 yrs (1 - 1-dose 75+ series) 2013 COVID-19 VACCINE ( season) 2024 06/15/2021 DEPRESSION SCREENING 09/04/2024 04/12/2024 BONE DENSITY TESTING Completed 08/22/2023, 06/29/2020, 06/15/2018, Additional history exists INFLUENZA VACCINE Completed 07/08/2024, , 06/19/2018, Additional history exists HEPATITIS B VACCINE Aged Out No longe r eligible based on patient's age to complete this topic HIB VACCINE Aged Out No longer eligi ble based on patient's age to complete this topic HPV VACCINE Aged Out No longer eligi ble based on patient's age to complete this topic MENINGOCOCCAL (Group B) VACCINE Aged Out No longer eligible based on patient's age to complete this topic MENINGOCOCCAL VACCINE Aged Out No joanne elana eligible based on patient's age to complete this topic Medical Devices Implanted Type Area Patient Intake Coordinator Device Identifier Shelf Expiration Date Model / Serial / Lot Rcdr Crd Linq Ii Ins - [id number] Implanted:Qty: 1 on 04/15/2024 by Katie Quiles MD at [facility] [employer] [id number] 08/22/2025 [id number] / [id number] / [id number] Procedures Procedure Name Priority Date/Time Associated Diagnosis Comments CARDIAC PROCEDURE ORDER 09/30/2024 MA ILR DEVICE INTERROGAT REMOTE Routine 09/08/2024 6:40 PM HR BUSINESS PARTNER CONSULTANT Cerebrovascular accident (CVA), unspecified mechanism (HCC) MA ILR DEVICE INTERROGAT REMOTE Routine 08/04/2024 7:33 PM HR BUSINESS PARTNER CONSULTANT Cerebrovascular accident (CVA), unspecified mechanism (HCC) from Last 3 Months Results * CARDIAC PROCEDURE ORDER (09/30/2024) Narrative 09/30/2024 Ordered by an unspecified provider. Scanned Document CARDIAC SERVICES ORD ERABLES * MA ILR DEVICE INTERROGAT REMOTE (09/08/2024 6:40 PM HR BUSINESS PARTNER CONSULTANT) Herman Darling MD - 09/08/2024 6:40 PM HR BUSINESS PARTNER CONSULTANT Herman Bailey MD 09/08/2024 6:41 PM Dear [...] Bailey MD PROCEDURE/MINOR SURG ICAL ORDERABLES * MA ILR DEVICE INTERROGAT REMOTE (08/04/2024 7:33 PM HR BUSINESS PARTNER CONSULTANT) Herman Darling MD - 08/04/2024 7:33 PM HR BUSINESS PARTNER CONSULTANT Herman Bailey MD 08/04/2024 7:33 PM Dear [...] Herman Bailey MD PROCEDURE/MINOR SURG ICAL ORDERABLES from Last 3 Months Advance Directives * Full Code (Latest Code Status on File) Date Activated Date Inactivated Comments 04/12/2024 4:25 PM 04/15/2024 7:23 PM Care Teams Trucker Hand Relationship Specialty Start Date End Date Hayden Oreilly MD [address] [place] [address] PCP - General Family Medicine 08/17/21
--- OUTSIDE RECORDS SUMMARY | 2024-10-26 17:09 | XMS_ITS | Encounter Summary ---
Author Organization [facility] Healthcare Address [address] [place] [address] Care Team Providers Care Easter Bunny Name Role Phone Hayden Oreilly MD Primary Care Provi erinn Pipo Richardson MD Unavailable [phone] Reason for Visit * Reason Onset Date Comments Medication Request 10/18/2024 Encounter Details Date Type Department Care Team (Late st Contact Info) Description 10/18/2024 Telephone [facility] Medical Group Family Medicine [address] [place] [address] Hayden Oreilly MD [address] [place] [address] Medication Request Social History Tobacco Use Types Packs/Day Years Used Date Smoking Tobacco: Former Cigarettes Q uit: 09/04/1992 Smokeless Tobacco: Never Comments:Quit 20 years ago Alcohol Use Standard Drinks/Week Comments Not Currently 0 (1 standard drink = 0.6 oz pur e alcohol) [facility] Utilities Answer Date Recorded In the past 12 months has [employer], gas, oil, or water company threatened [...] often do you attend chur ch or anabaptist services? Never 05/09/2024 Do you belong to any clubs o r organizations such as muslim groups, unions, fraternal or athletic groups, or [...] any time in the past 12 m [facility], were you homeless or living [...] on file Legal Sex Female 1:28 AM FIXED INTEREST DEALER Gender Identity Not on file Sexual Orientation Not on file documented as of this encounter Ordered Prescriptions Prescription Sig Dispense Quantity Refills Last Filled Start Date End Date fluticasone-umeclid in-vilanter (Trelegy Ellipta) 100-62.5-25 mcg inhalerIndications: Bronchospasm Prevention with COPD Inhale 1 puff daily 3 each 3 10/20/2024 documented in this encounter Miscellaneous Notes * Telephone Encounter - Laurel Torres - 10/18/2024 10:41 AM CST Medication affordability concern Medication Name(s)/Dose: ipratropium-albuteroL (COMBIVENT RESPIMAT) 20-100 mcg/actuation inhaler Name of prescribing provider: Afia Is this a new medication or have you taken it for a while, and it is suddenly very expensive? New Medication Have you had any insurance changes in the last couple months? no How much medication do you have on hand? None it is new Additional Comments: Asking to go back to the Trelegy Ellipta Does message need to be routed? Yes-Action Needed D INTEREST DEALER documented in this encounter Plan of Treatment Not on file documented as of this encounter Visit Diagnoses Not on filedocumented in this encounter Care Teams Easter Bunny Relationship Specialty Start Date End Date Hayden Oreilly MD [address] [address] PCP - General Family Medicine 01/31/19 [place] [address] [place] [address] [address] [place] [address] Surgeon Vascular Surgery 02/27/24 documented as of this encounter
--- OUTSIDE RECORDS SUMMARY | 2024-10-26 17:09 | XMS_ITS | Patient Health Record ---
Author Organization [facility] Address [address] [place], [place] [id number] Care Team Providers Care Linux Kernel Developer Name Role Phone NATALIIA THAKUR Unavailable [phone] Hayden Oreilly Unavailable Unavaila ble Allergies No Known Allergies Reason For Referral No Information Plan Of Treatment No Information Insurance Providers Payer Name Payer Address Payer Phone Subscriber Number Group Number Insured Name Patient Relationship to Insured Coverage Start Date Coverage End Date [employer]. [address] [place] [address] [id number] IGOR BERNARD Self - patient is the insured Medical (General) History Medical History History ICD Code Leg/Feet cramps Arthritis Thyroid Disease
--- OUTSIDE RECORDS SUMMARY | 2024-10-26 17:09 | XMS_ITS | Encounter Summary ---
Author Organization [facility] Address [address] [place] [address] Care Team Providers Care Pocket Operator Name Role Phone Hayden Oreilly MD Primary Care Provi erinn Pipo Richardson MD Unavailable [phone] Reason for Visit * Reason Onset Date Comments Forms Request 2024 Encounter Details Date Type Department Care Team (Late st Contact Info) Description [address] [facility] Family Medicine [address] [place] [address] Hayden Oreilly MD [address] [place] [address] Forms Request Social History Tobacco Use Types Packs/Day Years Used Date Smoking Tobacco: Former Cigarettes Q uit: 09/04/1992 Smokeless Tobacco: Never Comments:Quit 20 years ago Alcohol Use Standard Drinks/Week Comments Not Currently 0 (1 standard drink = 0.6 oz pur e alcohol) [facility] Utilities Answer Date Recorded In the past 12 months has [employer], gas, oil, or water company threatened [...] often do you attend chur ch or jehovah's witness services? Never 05/09/2024 Do you belong to any clubs o r organizations such as advent groups, unions, fraternal or athletic groups, or [...] any time in the past 12 m [facility], were you homeless or living in a assisted (including now)? No 05/09/2024 Personal Safety Answer Date Recorded Have you ever been in or are you currently in a harmful physical or emotional relationship or is someone making you feel afraid or unsafe? 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 BODY JOINER Gender Identity Not on file Sexual Orientation Not on file documented as of this encounter Miscellaneous Notes * Telephone Encounter - [place] - 2024 9:38 AM CST Forms Request Form requested: Other Form Form Name: Handicap Placard Form Date needed: As soon as possible (no date specified) How is patient delivering to office: Drop off at practice Who is form being returned to? Patient How to return form to patient:mail Address to mail forms to: [address] [place] [address] Additional Comments: patient will be dropping forms off this morning 10/15. Does message need to be routed? Yes-Action Needed JOINER documented in this encounter Plan of Treatment Not on file documented as of this encounter Visit Diagnoses Not on filedocumented in this encounter Additional Health Concerns Infection Onset Date Last Indicated Resolved Time COVID: Suspected 10/16/2024 10/16/2024 10/16/2024 3:01 PM BODY JOINER documented as of this encounter Care Teams Pocket Operator Relationship Specialty Start Date End Date Hayden Oreilly MD [address] [facility] [address] [place] [address] PCP - General Family Medicine 01/31/19 Pipo Richardson MD [address] [facility] [facility] [address] [place] [address] Surgeon Vascular Surgery 02/27/24 documented as of this encounter
--- OUTSIDE RECORDS SUMMARY | 2024-10-26 17:09 | XMS_ITS | Referral Summary ---
Author Organization [facility] [address] Address [address] [place] [address] Care Team Providers Care Control Systems Specialist Name Role Phone Hayden Oreilly MD Primary Care Provi erinn Pipo Richardson MD Unavailable [phone] Encounters Date Type Department Care Team Description 10/26/2024 Nurse Triage [facility] Family Medicine [address] [place] [address] Hayden Oreilly MD 10/25/2024 Orders Only [address] [address] Cony Caba NP 10/25/2024 Nurse Triage [facility] Family Medicine [address] [place] [address] Hayden Oreilly MD 10/25/2024 Telephone [facility] Family Medicine [address] [place] [address] Hayden Oreilly MD LAVELL Questions 10/18/2024 Telephone [facility] Family Medicine [address] [place] [address] Hayden Oreilly MD Medication Request 10/18/2024 Telephone [facility] Family Medicine [address] [place] [address] Hayden Oreilly MD Medical Question/Miscellan eous 10/16/2024 3:15 PM ENERGY ECONOMIST Office Visit [facility] [address] [address] Tamar Carpio PA Shortness of breath (Primary Dx); Cough, unspecified type 10/16/2024 Nurse Triage [facility] Family Medicine [address] [facility] [address] [place] [phone] Hayden Oreilly MD 2024 Telephone [facility] [address] [facility] [address] [place] [phone] Hayden Oreilly MD Forms Request 10/14/2024 Telephone [facility] [address] [facility] [address] [place] [phone] Hayden Oreilly MD Medical Question/Miscellan eous 10/03/2024 Telephone [facility] Medicine [address] [facility] [address] [place] [phone] Hayden Oreilly MD Referral Request 09/23/2024 Telephone [facility] [address] [address] Sheree Gomez NP 09/23/2024 11:55 AM ENERGY ECONOMIST Ancillary Procedure [facility] [address] [address] Bronchitis 09/23/2024 11:45 AM ENERGY ECONOMIST Office Visit [facility] [address] [phone] Tamar Carpio PA Bronchitis (Primary Dx); Strep throat 09/23/2024 Nurse Triage [facility] Medicine [address] [facility] [address] [place] [phone] Hayden Oreilly MD 09/12/2024 9:30 AM ENERGY ECONOMIST Procedure visit [facility] [address] [facility] [address] [place] [address] Myrna Gamboa NP Bilateral impacted cerumen (Primary Dx) 09/10/2024 Orders Only [facility] Health Information Management [address] [place] [address] Scanning, Provider 09/09/2024 Telephone [facility] [address] [facility] [address] [place] [address] Hayden Oreilly MD Medical Question/Miscellan eous 08/05/2024 Telephone [facility] [address] [facility] [address] [place] [address] Hayden Oreilly MD Case Management- Primary Care (Trelegy Samples Request) 08/05/2024 ACO Outreach [facility] Accountable Care Organization [address] [place] [address] Tabitha Galvin RN from Last 3 Months Allergies No known active allergies Medications nebulizers [facility] 1 Units every 6 (six) hours 1 [...] 10/16/2024 Assessment & Plan (10/16/2024 3:17 PM ENERGY ECONOMIST): O2 saturation between 92-94% at rest Recommended ER evaluation, patient declined Will treat for possible COPD exacerbation again with prednisone Albuterol as needed Already recently treated with prednisone, z pack Please see your PCP or manager visual in the future for recurrent COPD exacerbations Cough 10/16/2024 Assessment & Plan (10/16/2024 3:16 PM ENERGY ECONOMIST): Mucinex as expectorant Albuterol nebulizer Prednisone Likely d/t COPD exacerbation Bronchitis 09/23/2024 Assessment & Plan (09/23/2024 11:51 AM ENERGY ECONOMIST): Covid and flu test negative Wheezing throughout [...] 09/23/2024 Assessment & Plan (09/23/2024 12:04 PM ENERGY ECONOMIST): Rapid strep positive Initiate Zithromax as this [...] (chronic obstructive pulmonary disease) 05/2024 Atherosclerosis of stillaguamish ar mian of both lower extremities with [...] kidney disease, stage II (mild) 05/15/2018 06/03/2021 Immunizations Immunization Administration Dates Next Due Influenza, [...] Protein Subun it Rsvpref, Diluent (Abrysvo) 08/09/2024 Social History Tobacco Use Types Packs/Day Years Used Date Smoking Tobacco: Former Cigarettes Q uit: 09/04/1992 Smokeless Tobacco: Never Tobacco Cessation:Counseling Given: Not Answered Comments:Quit 20 years ago Alcohol Use Standard Drinks/Week Comments Not Currently 0 (1 standard drink = 0.6 oz pur e alcohol) [facility] [employer] Answer Date Recorded In the past 12 months has [employer], gas, oil, or water [employer] threatened to shut off services in your [...] often do you attend chur ch or rastafari services? Never 05/09/2024 Do you belong to any clubs o r organizations such as bahai groups, unions, fraternal or athletic groups, or [...] any time in the past 12 m [facility], were you homeless or living in a chcf (including now)? No 05/09/2024 Personal Safety Answer Date Recorded Have you ever been in or are you currently in a harmful physical or emotional relationship or is someone making you feel afraid or unsafe? 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 ENERGY ECONOMIST Gender Identity Not on file Sexual Orientation Not on file Last Filed Vital Signs Vital Sign Reading Time Taken Comments Blood Pressure 120/78 10/16/2024 2:39 PM ENERGY ECONOMIST Pulse 103 10/16/2024 2:39 PM ENERGY ECONOMIST Temperature 36.7 C (98 F) 10/16/2024 2:39 PM ENERGY ECONOMIST Respiratory Rate 22 10/16/2024 2:39 PM ENERGY ECONOMIST Oxygen Saturation 92% 10/16/2024 2:39 PM ENERGY ECONOMIST Inhaled Oxygen Concentration - - Weight 83.3 kg (183 lb 9.6 oz) 10/16/2024 2:39 P M ENERGY ECONOMIST Height 160 cm (5' 2.99 ) 10/16/2024 2:39 PM ENERGY ECONOMIST Body Mass Index 32.53 10/16/2024 2:39 PM ENERGY ECONOMIST Plan of Treatment Not on file Medical Devices Implanted Type Area Nutritional Chemist Device Identifier Shelf Expiration Date Model / Serial / Lot [employer] Peripheral Vascular Lifestream 8mm 37mm 80cm Balloon Expandable Low Profile Cover [id number] - [id number] Implanted:Qty: 1 on 02/27/2024 by Pipo Richardson MD at [facility] [employer] 10/04/2024 [id number] / / [id number] [employer] Lifestream 8mm 37mm 80cm Balloon Expandable Low Profile Cover [id number] - [id number] Implanted:Qty: 1 on 02/27/2024 by Pipo Richardson MD at [facility] [employer] 09/03/2025 [id number] / / [id number] [employer] V[employer] System Closure Repair Femoral Artery Suture Mediated Perclose Prostyle 13348-33 - [id number] Implanted:Qty: 1 on 02/27/2024 by Pipo Richardson MD at [facility] [employer] 11/01/2025 [id number] / / [id number] [employer] System Closure Repair Femoral Artery Suture Mediated Perclose Prostyle 43436-69 - [id number] Implanted:Qty: 1 on 02/27/2024 by Pipo Richardson MD at [facility] [employer] 11/01/2025 [id number] / / [id number] Procedures Procedure Name Priority Date/Time Associated Diagnosis Comments XR CHEST 1 VIEW Schedule Routine, Read Routine (OP Routine) 10/20/2024 8:26 AM ENERGY ECONOMIST POC INFLUENZA A/B, COVID-19 ANTIGEN Routine 10/16/2024 2:45 PM ENERGY ECONOMIST Cough, unspecified type POCT RAPID RSV Routine 10/16/2024 2:44 PM ENERGY ECONOMIST Cough, unspecified type XR CHEST PA LATERAL 2 VIEWS Schedule SARAH, Read SARAH (Appt Today, Awaiting Results) 09/23/2024 12:00 PM ENERGY ECONOMIST Bronchitis POCT RAPID RSV Routine 09/23/2024 11:27 AM ENERGY ECONOMIST Bronchitis POC INFLUENZA A/B, COVID-19 ANTIGEN Routine 09/23/2024 11:27 AM ENERGY ECONOMIST Bronchitis POCT RAPID STREP Routine 09/23/2024 11:1 9 AM ENERGY ECONOMIST Bronchitis Strep throat [place] REMOVAL IMPACTED CERUMEN IRRIGATION/LVG UNILAT Routine 09/12/2024 9:30 AM ENERGY ECONOMIST Bilateral impacted cerumen SCAN - RADIOLOGY/IMAGING 09/10/2024 from Last 3 Months Results * XR Chest 1 View (10/20/2024 8:26 AM ENERGY ECONOMIST) Anatomical Region Laterality Modality Body, Chest N/A Radiographic Maame ging Historical Provider MD ACHARYA XR PROCEDURES Edited Result - Final * POC Influenza A/B, COVID-19 antigen (10/16/2024 2:45 PM ENERGY ECONOMIST) Influenza A Ag, POC Negative Negative [facility] Influenza B Ag, POC Negative Negative [facility] COVID-19 Ag POC Presumptive Negative Presumptive Negative, Invalid [facility] Nasopharyngeal 10/16/2024 2: 45 PM ENERGY ECONOMIST Tamar MACE POINT OF CARE TEST ORDERABLES F inal Result [facility] [address] [facility] [address] [place] [address], [facility] * POCT rapid RSV (10/16/2024 2:44 PM ENERGY ECONOMIST) Rapid RSV, POC Negative Negative Lot Number [id number] QC Control Line Acceptable Swab 10/16/2024 2:44 PM ENERGY ECONOMIST Tamar MACE POINT OF CARE TEST ORDERABLES F inal Result * XR Chest Pa Lateral 2 Views (09/23/2024 12:00 PM ENERGY ECONOMIST) Anatomical Region Laterality Modality Body, Chest N/A Computed Radiogr aphy 09/23/2024 1:09 PM ENERGY ECONOMIST Narrative 09/23/2024 1:10 PM ENERGY ECONOMIST EXAM DESCRIPTION: XR CHEST PA LATERAL 2 [...] Xavier Rios D.O. PS T: Report ID: [id number] Reading Location: [id number] Procedure Note Xavier Rios, DO - 09/23/2024 [...] 1:10 PM - Electronically signed by Xavier LAW T: Report ID: [id number] Reading Location: [id number] Tamar MACE IMG XR PROCEDURES Final Result * POC Influenza A/B, COVID-19 antigen (09/23/2024 11:27 AM ENERGY ECONOMIST) [facility] Influenza A Ag, POC Negative Negative [facility] Influenza B Ag, POC Negative Negative [facility] COVID-19 Ag POC Presumptive Negative Presumptive Negative, Invalid [facility] Nasopharyngeal 09/23/2024 11 :27 AM ENERGY ECONOMIST Tamar MACE POINT OF CARE TEST ORDERABLES F inal Result [facility] [address] [address] * POCT rapid RSV (09/23/2024 11:27 AM ENERGY ECONOMIST) [facility] Rapid RSV, POC Negative Negative Lot Number [id number] QC Control Line Acceptable Swab 09/23/2024 11:2 7 AM ENERGY ECONOMIST Tamar MACE POINT OF CARE TEST ORDERABLES F inal Result * (ABNORMAL) POCT rapid strep A (09/23/2024 11:19 AM ENERGY ECONOMIST) [facility] Rapid Strep A, POC Positive(A ) Negative Swab 09/23/2024 11:1 9 AM ENERGY ECONOMIST Tamar MACE POINT OF CARE TEST ORDERABLES E dited Result - Final * [place] REMOVAL IMPACTED CERUMEN IRRIGATION/LVG UNILAT (09/12/2024 9:30 AM ENERGY ECONOMIST) Narrative Myrna Gamboa NP - 09/12/2024 9:30 AM ENERGY ECONOMIST Myrna Gamboa NP 09/12/2024 10:47 AM Ear [...] Last 3 Months Insurance DEVOTED MEDICARE PPO Advance Directives For more information, please contact: [phone] * Full Code (Latest Code Status on File) Date Activated Date Inactivated Comments 06/03/2022 1:32 PM 06/05/2022 3:52 PM Care Teams Control Systems Specialist Relationship Specialty Start Date End Date Hayden Oreilly MD [address] [address] PCP - General Family Medicine 01/31/19 Pipo Richardson MD [address] [facility] [address] [address] Surgeon Vascular Surgery 02/27/24
--- OUTSIDE RECORDS SUMMARY | 2024-10-26 17:09 | XMS_ITS | Referral Summary ---
Author Organization [facility] Address [address] [facility] [place] [address] Care Team Providers Care Side Door Worker Name Role Phone Hayden Oreilly MD Primary Care Provi erinn Source Comments [facility],non-owned Affiliates and Associated Physician Practices is amultiple site organization consisting of ambulatory clinics and hospital sitesin [place], [place], [place] and [place]. This disclosure is being madepursuant to the Care Everywhere program and may not contain all information available regarding this patient. Last updated 18.[facility] Encounters Date Type Department Care Team Description 10/03/2024 Travel 08/29/2024 1:10 AM PHOTORESIST PRINTER Clinical Support [facility] - Cardiology [address] [address] Cerebrovascular accident (CVA), unspecified mechanism (HCC) from Last 3 Months Allergies No known active allergies Medications * [...] before meal 02/12/2024 Active Cholecalciferol 50 MCG (1999 [place]) Take 2.5 [...] Recorded Patient Health Questionnaire-2 Score 0 04/14/2024 [facility] [place] of Occupat ional Health - Occupational Stress [...] place to sleep or slept in a senior living (including now)? No 04/12/2024 Sex and Gender [...] Mass Index 33.65 05/28/2024 2:52 PM CDT Functional Status Functional Status Response Date of Assess ment Is person deaf or have serious hearing difficult y? No 04/12/2024 Is person blind or have serious difficulty seein g? No 04/12/2024 Does person have serious dif ficulty walking/climbing stairs? No 04/12/2024 Does person have difficulty dressing/bathing? No 04/12/2024 Does person have difficulty doing errands alone? No 04/12/2024 Cognitive Status Response Date of Assessm ent Does person have difficulty concentrating/remembering/making decisions? No 04/12/2024 Plan of Treatment Upcoming Encounters Date Type Department Care Team (Late st Contact Info) Description 11/07/2024 1:10 AM PHOTORESIST PRINTER Clinical Support [facility] - Cardiology [address], [address] [address] 11/26/2024 10:20 AM CDT Office Visit [facility] [address], [address] [address] Katie Quiles MD [address] [address] 12/12/2024 1:10 AM CDT Clinical Support [facility] - Cardiology [address], [address] [address] 01/16/2025 1:10 AM CDT Clinical Support [facility] [address], [address] [address] 02/20/2025 1:10 AM CDT Clinical Support [facility] [address], [address] [address] 03/27/2025 1:10 AM CDT Clinical Support [facility] [address], [address] [address] 05/01/2025 1:10 AM CDT Clinical Support [facility]iology [address], [facility] [address] [place] [address] 06/05/2025 1:10 AM CDT Clinical Support [facility] - Cardiology [address] [facility], [facility] [address] [place] [address] Medical Devices Implanted Type Area Internal Combustion Engine Inspector Device Identifier Shelf Expiration Date Model / Serial / Lot Rcdr Crd Linq Ii Ins - [id number] Implanted:Qty: 1 on 04/15/2024 by Katie Quiles MD at [facility] [employer] [id number] 08/22/2025 [id number] / [id number] Procedures Procedure Name Priority Date/Time Associated Diagnosis Comments CARDIAC PROCEDURE ORDER 09/30/2024 [place] ILR DEVICE INTERROGAT REMOTE Routine 09/08/2024 6:40 PM PHOTORESIST PRINTER Cerebrovascular accident (CVA), unspecified mechanism (HCC) [place] ILR DEVICE INTERROGAT REMOTE Routine 08/04/2024 7:33 PM PHOTORESIST PRINTER Cerebrovascular accident (CVA), unspecified mechanism (HCC) from Last 3 Months Results * CARDIAC PROCEDURE ORDER (09/30/2024) Narrative 09/30/2024 Ordered by an unspecified provider. Scanned Document CARDIAC SERVICES ORD ERABLES * IA ILR DEVICE INTERROGAT REMOTE (09/08/2024 6:40 PM PHOTORESIST PRINTER) Narrative Herman Bailey MD - 09/08/2024 6:40 PM PHOTORESIST PRINTER Herman Bailey MD 09/08/2024 6:41 PM Dear [...] Bailey MD PROCEDURE/MINOR SURG ICAL ORDERABLES * [place] ILR DEVICE INTERROGAT REMOTE (08/04/2024 7:33 PM PHOTORESIST PRINTER) Narrative Herman Bailey MD - 08/04/2024 7:33 PM PHOTORESIST PRINTER Herman Bailey MD 08/04/2024 7:33 PM Dear [...] 4:25 PM 04/15/2024 7:23 PM Care Teams Side Door Worker Relationship Specialty Start Date End Date Hayden Oreilly MD [address] [address] PCP - General Family Medicine 08/17/21
[2024-10-26 17:39] LABS: Basophils Absolute Auto 0.1 K/mm3 (0.0-0.1); Basophils Percent Auto 0.4 % (0.2-1.2); Eosinophils Absolute Auto 0.1 K/mm3 (0-0.3); Eosinophils Percent Auto 0.2 % (0-4.4); Hematocrit 35.5 % (37.0-47.0); Hemoglobin 10.6 g/dL (12.0-15.0); Immature Granulocyte Absolute 0.79 K/mm3 (0.00-0.031); Immature Granulocyte Percent A 2.6 % (0-0.5); Lymphocytes Absolute Auto 0.76 K/mm3 (0.9-3.2); Lymphocytes Percent Auto 2.5 % (18.3-44.2); Mean Corpuscular HGB Conc 29.9 g/dl (32-36); Mean Corpuscular Volume 80.5 fl (80-100); Mean Platelet Volume 9.9 fl (7.4-10.4); Monocytes Absolute Auto 2.3 K/mm3 (0.1-0.6); Monocytes Percent Auto 7.7 % (2.6-8.5); Neutrophils Absolute Auto 25.9 K/mm3 (1.3-6.7); Neutrophils Percent Auto 86.6 % (45.5-73.1); Platelet Count Result 432 k/mm3 (150-375); Red Blood Count 4.41 M/mm3 (4.2-5.4); Red Cell Distribution Width 17.8 % (11.5-14.5)
[2024-10-26 17:51] LABS: Lactic Acid Reflex 3.3 mmol/L (0.7-2.0)
[2024-10-26 17:52] LABS: Alanine Aminotransferase 26 U/L (6-35); Albumin Level 3.8 g/dL (3.5-5.1); Alkaline Phosphatase 59 U/L (38-126); Anion Gap 10 mmol/L (4-12); Aspartate Amino Transferase 26 U/L (14-36); Blood Urea Nitrogen 45 mg/dL (7-17); Calcium 9.2 mg/dL (8.4-10.2); Carbon Dioxide 26 mmol/L (22-30); Chloride 99 mmol/L (98-107); Estimated CRCL calculation 26 ml/min; Estimated Glomerular Filt Rate 36; Glucose 125 mg/dL (65-110); Potassium 4.3 mmol/L (3.4-5.0); Sodium 135 mmol/L (137-145)
[2024-10-26 17:58] LABS: CRP 2.2 mg/dL (<1.0)
--- NOTE | 2024-10-26 17:58 | ED.SOB ---
HPI - SOB/Dyspnea General Chief Complaint: Animal Bite Stated Complaint: PNEUMONIA, RECENTLY D/C FROM [facility] Time Seen by Provider: 10/26/24 16:41 History of Present Illness HPI Narrative: 84-year-old female with a past medical history including COPD, prior CVA, and prior smoking. Patient presents to the emergency department chief complaint of worsening shortness of breath. She was admitted at [facility] for about 1 week and diagnosed with pneumonia, treated with IV and then transition oral antibiotics. She was taking antibiotics but has not taken them for several days as they are causing her having GI upset. She still has several days left in her bottle at bedside. Patient is tachycardic, dyspneic, hypoxic and hypotensive in triage. Patient was brought back in room 11 for medical resuscitation and evaluation. She is awake alert and answering questions but does have conversational dyspnea. Hypoxic on ABG requiring 2 L nasal cannula. Patient states that she feels like she is having worsening productive cough and shortness of breath. Denies any chest pain or chest pressure. No present nausea vomiting, no abdominal pain or diarrhea. No fever but states she feels chilly. Patient refused to go back to [place] and came here for evaluation. Patient was re-evaluated after fluid boluses and has improvement her vital signs. Blood pressure 106/68, heart rate down 107. She is found to have a significant leukocytosis and lactic acidosis consistent with sepsis likely from her pneumonia. CT PE shows no pulmonary embolism and a lingular pneumonia residual. Emphysematous lungs. Patient was still having some work of breathing for which a DuoNeb and Solu-Medrol was given given her COPD and current smoking status. Related Data Allergies Allergy/AdvReac Type Severity Reaction Status Date / Time levofloxacin AdvReac Abdominal Verified 10/26/24 18:04 Pain Review of Systems Review of Systems: As reviewed above in HPI Exam Narrative: GENERAL: Ill-appearing, uncomfortable, tachycardic and tachypneic HEAD: [Normocephalic, atraumatic.] EYES: [PERRLA and EOMI.] ENT: Nares clear, no rhinorrhea or epistaxis. Mucous membranes moist. NECK: Supple. CHEST: Coarse bilateral breath sounds, no wheezing, tachypnea noted. No wheezing or prolonged expiratory phase. HEART: Tachycardic rate with a regular rhythm. No murmur heard. [Normal peripheral pulses.] ABDOMEN: [Soft, nondistended], [nontender], [No rigidity or guarding] EXTREMITIES: Normal range of motion. [No edema.] SKIN: Warm, dry, no rash. NEURO: [No focal deficits]. Alert and oriented [x3.] PSYCH: [Normal mood and affect.] Course Vital Signs Vital signs: Vital Signs Temperature 36.9 C 10/26/24 16:56 Pulse Rate 116 H 10/26/24 16:56 Respiratory Rate 39 H 10/26/24 16:56 Blood Pressure 69/53 L 10/26/24 16:56 Pulse Oximetry 96 10/26/24 16:56 Oxygen Delivery Room Air 10/26/24 16:56 Temperature 36.9 C 10/26/24 16:56 Pulse Rate 107 H 10/26/24 18:56 Respiratory Rate 30 H 10/26/24 18:56 Blood Pressure 106/68 10/26/24 18:56 Pulse Oximetry 95 10/26/24 19:25 Oxygen Delivery Nasal Cannula 10/26/24 19:25 Oxygen Flow Rate 2 10/26/24 19:25 MDM - SOB/Dyspnea MDM Narrative Medical decision making narrative: 84-year-old female with history of COPD, prior CVA w/o deficits, and prior smoker. Patient presents for evaluation of worsening shortness of breath after recent admission to [facility]. She was treated for community-acquired pneumonia at outside facility with IV antibiotics and then transitioned to p.o. antibiotics which she has not been able to tolerate secondary to GI upset and nauseousness and vomiting. She is found to be hypotensive, tachycardic, tachypneic and hypoxic on triage vitals. She is very ill-appearing, coarse breath sounds throughout all lung olson, no evidence of any DVT or edema in the legs. No chest pain or chest pressure. Concern presently is for failed outpatient treatment of pneumonia with recurrence, healthcare associated pneumonia, superimposed infection, sepsis, less likely ACS or thromboembolic event such as a PE although she is high risk given her recent hospital stay and infectious process. Will evaluate with laboratory studies CBC, CMP, D-dimer, troponin, EKG, chest x-ray. Septic but was ordered she was given a 30 cc/kg bolus for resuscitation given her clinical dehydration. She was started on broad-spectrum antibiotics including vancomycin and cefepime. Placed on nasal cannula after ABG showed hypoxia with PaO2 of 60. Tachypnea with a pH is 7.47 and a bicarb of 19 consistent with respiratory alkalosis. Leukocytosis of 30, lactic acid elevation at 3.3. BUN and creatinine are up at 45 and 1.39 respectively. CRP up at 2.2. Normal electrolytes otherwise. Blood gas shows metabolic acidosis with compensatory respiratory alkalosis likely secondary to sepsis and her tachypnea. Chest x-ray shows airspace opacities in left lung. CTA shows no pulmonary embolism, mild pneumonia in the left lingula, chronically occluded left common carotid artery which patient is well aware of and led to her previous stroke with no deficits. EKG obtained shows sinus tachycardia but no signs of acute ischemia or arrhythmia. Patient was improved after sufficient fluid bolus and antibiotics. Blood pressure improved to 120/54, heart rate came down to 105. Saturating 100% on 2 L nasal cannula. Patient will be admitted to the hospital for continued evaluation and treatment of her severe sepsis with suspected source being pneumonia and potential blood sugar infection. Spoke to the hospitalist Dr. Garcia who accepted the patient to the intermediate care unit bed at this time. Patient and family were updated at bedside and comfortable with the plan of care for admission to the hospital. Medical Records Attestation: I reviewed the patient's medical records. Lab Data Attestation: I reviewed the patient's lab results. 10/26/24 17:34 10/26/24 17:34 Labs: Lab Results 10/26/24 10/26/24 10/26/24 Range/Units 16:50 17:34 19:11 WBC 30.0 H (4.5-10.0) K/mm3 RBC 4.41 (4.2-5.4) M/mm3 Hgb 10.6 L (12.0-15.0) g/dL Hct 35.5 L (37.0-47.0) % MCV 80.5 (80-100) fl MCH 24.0 L (26-34) pg MCHC 29.9 L (32-36) g/dl RDW 17.8 H (11.5-14.5) % Plt Count 432 H (150-375) k/mm3 MPV 9.9 (7.4-10.4) fl Immature Gran % (Auto) 2.6 H (0-0.5) % Neut % (Auto) 86.6 H (45.5-73.1) % Lymph % (Auto) 2.5 L (18.3-44.2) % Zavala % (Auto) 7.7 (2.6-8.5) % Eos % (Auto) 0.2 (0-4.4) % Baso % (Auto) 0.4 (0.2-1.2) % Lymph # (Auto) 0.76 L (0.9-3.2) K/mm3 Zavala # (Auto) 2.3 H (0.1-0.6) K/mm3 Eos # (Auto) 0.1 (0-0.3) K/mm3 Baso # (Auto) 0.1 (0.0-0.1) K/mm3 Abs Immat Gran (auto) 0.79 H (0.00-0.031) K/mm3 Absolute Neuts (auto) 25.9 H (1.3-6.7) K/mm3 Absolute Nucleated RBC 0.000 (0.0-0.012) K/mm3 Band Neutrophils % Not Reportable Nucleated RBC % 0.0 (0.0-0.2) % Platelet Estimate Increased (Adequate) Hypochromasia 1+ Ovalocytes 1+ Schistocytes None seen Methemoglobin 0.1 (0-1.5) %THb Sodium 135 L (137-145) mmol/L Potassium 4.3 (3.4-5.0) mmol/L Chloride 99 (98-107) mmol/L Carbon Dioxide 26 (22-30) mmol/L Anion Gap 10 (4-12) mmol/L BUN 45 H (7-17) mg/dL Creatinine 1.39 H (0.7-1.0) mg/dL Estim Creat Clear Calc 26 ml/min Estimated GFR 36 L (59 - ) Glucose 125 H (65-110) mg/dL Lactic Acid 3.3 H (0.7-2.0) mmol/L Calcium 9.2 (8.4-10.2) mg/dL Total Bilirubin 1.0 (0.2-1.3) mg/dL AST 26 (14-36) U/L ALT 26 (6-35) U/L Alkaline Phosphatase 59 (38-126) U/L Troponin I 0.027 (0.000-0.034) ng/mL C-Reactive Protein 2.2 H (<1.0) mg/dL Total Protein 7.0 (6.3-8.2) g/dL Albumin 3.8 (3.5-5.1) g/dL Nasal MRSA (PCR) Pending ABG Data ABG results: 10/26/24 16:50 Puncture Site Right brachial ABG pH 7.472 H ABG pCO2 27.6 L ABG pO2 60.0 L ABG PO2/FiO2 Ratio 2.86 ABG HCO3 19.7 L ABG O2 Saturation 92.9 L ABG O2 Content 14.1 L ABG Base Excess -2.8 A-a Gradient 56.7 Oxyhemoglobin 89.1 L Carboxyhemoglobin 1.2 Reduced Hemoglobin 9.6 H Total Hemoglobin 11.2 L O2 Delivery Device Not Reportable O2 Liters/Min Not Reportable FiO2 21 Attestation: I personally reviewed and interpreted this ABG as follows: Interpretation: Metabolic acidosis with compensatory respiratory alkalosis Imaging Data Attestation: I personally reviewed and interpreted this imaging study as follows: My impression: Impressions Chest X-Ray 10/26/24 17:02 IMPRESSION: 1. Airspace opacities at left lung base, consistent with atelectasis versus pneumonia. Chest CTA 10/26/24 18:26 IMPRESSION: 1. No pulmonary embolus. Sensitivity is mildly decreased by motion artifact. 2. Mild pneumonia in lingula. 3. Mild emphysema. 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 Critical Care Time Critical Care Time Critical Care Time: Yes Total Critical Care Time: 76 Discharge Plan Discharge Clinical Impression: HCAP (healthcare-associated pneumonia), Sepsis, Hypotension, Acute hypoxic respiratory failure, COPD (chronic obstructive pulmonary disease) Patient Disposition: Still a Patient Condition: Guarded Prognosis Patient Language: Malian Follow-up/Referrals: PHYSICIAN NOT ON STAFF,NONSTAFF [Primary Care Provider] - Time of Disposition: 20:18
[2024-10-26] MEDS: LACTATED RINGERS 1,000 ML 999 ML IV CONT ×2 (18:00→19:43)
[2024-10-26 18:05] LABS: Hypochromasia 1+; Platelet Estimate Increased (Adequate)
[2024-10-26] MEDS: CEFEPIME 2 GM/NS 50 ML 2 GM/50 ML BAG IVPB (18:05)
[2024-10-26 18:06] LABS: Ovalocytes 1+; Schistocytes None Seen
[2024-10-26 18:09] LABS: Troponin I 0.027 ng/mL (0.000-0.034)
[2024-10-26] MEDS: VANCOMYCIN 2,000 MG/NS 500 ML 2,000 MG/500 ML BAG 250 MG IVPB (19:09)
[2024-10-26] MEDS: IPRATROPIUM 0.5 MG/ALBUTEROL SULFATE 2.5 MG AMPUL.NEB 3 ML INHALATION (19:22)
[2024-10-26] MEDS: methylPREDNISolone SOD SUCC 40 MG VIAL IV PUSH (19:43)
--- NOTE | 2024-10-26 19:54 | ECG_ITS ---
Test Date: 2024-10-26 20:06:57 Measurements Intervals [place] Rate: 104 P: 44 FL: 148 QRS: 56 QRSD: 86 T: 47 QT: 326 QTc: 430 Interpretive Statements SINUS TACHYCARDIA DELAYED PRECORDIAL R/S TRANSITION ANTEROSEPTAL INFARCT, AGE INDETERMINATE BORDERLINE ST ABNORMALITY- INFERIOR LEADS BASELINE ARTIFACT- I, II, AVR, AVL ABNORMAL ECG No previous ECG available for comparison Electronically Signed On 10-27-2024 07:00:51 WAREHOUSE DISTRIBUTION MANAGER by Gurdeep Romero D.O.
[2024-10-26 20:28] LABS: MRSA (PCR) NOT DETECTED (NOT DETECTE)
[2024-10-26 20:37] LABS: Reflex Lactic Acid Yes or No Add Lactic
--- NOTE | 2024-10-26 21:07 | P.HP_ITS ---
H&P: HPI History of Present Illness Date/Time: 10/26/24 22:07 Chief Complaint: Shortness of breath Narrative: 84-year-old female with a past medical history of COPD with continuous tobacco use, essential hypertension, GERD, coronary artery disease and hypothyroidism who presented to the ER from home due to shortness of breath. The patient was recently hospitalized at [facility] due to pneumonia. She was originally prescribed Levaquin on discharge but did not take this due to abdominal bloating and nausea She was then given a script of cefdinir which was filled today but she did not start taking any of the doses. She decided come to the ER due to the degree of her shortness of breath but she presented to our facility because she did not want to be admitted back at [facility]. She reports that she has been having a nonproductive cough provide 8-10 days. She denies any fevers or chills. She reports her chest feels tight. She denies any recent known ill contacts and did receive her influenza vaccine this flu season on arrival to ER she was hypoxic on room air, tachycardia, dyspneic and hypotensive. On 2 L nasal cannula patient oxygen saturations improved to 93-98%. She reports that ever since she was hospitalized at [facility] she had been having mushy stools. She had been having between 68 brown mushy stools a day. She denies any paola watery stools. She reports her abdomen feels distended but is nonpainful. Her bowel movements have slowed since she took and anti diarrheal at home. She reports generalized poor appetite. He does have intermittent urinary frequency and has had history of prior bladder suspension surgery and repair of a urethral diverticulum. She denies any dysuria or hematuria. Patient received 30 mL/kilos fluid bolus with normalization of her blood pressure and improvement her tachycardia. Labs demonstrated marked leukocytosis with a white count of 30 and lactic acidosis of 3 with CTA of the chest demonstrating lingular pneumonia with emphysematous changes without evidence of pulmonary embolism. Patient was started on broad-spectrum antibiotic coverage with cefepime, vancomycin and given a dose of Solu-Medrol and a DuoNeb. She was subsequently admitted in this setting. She reports that she usually uses inhalers at home. However on discharge from the hospital she was given a script for nebulizers. She does now received her nebulizer machine at home. It does not sound like she had a chance to use it as of yet. Source of information is the patient (who is a good historian) and patient's daughter Jagruti. Past medical records were not available for review, external medication reconciliation reviewed. Patient's case was discussed with the patient and her daughter with the patient's permission. Review of Systems Review of Systems: 12 systems were reviewed with pertinent positives and negatives per HPI. Except as documented in the HPI, all other systems were reviewed and are negative. The patient reports slight decreased sensation in her left hand ever since her stroke last year. 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 CVA (cerebral vascular accident) (04/2024) Osteoporosis Essential hypertension GERD (gastroesophageal reflux disease) Hypothyroidism Emphysema/COPD Surgical History Surgical History (Updated 10/27/24 @ 06:59 by Margaret Garcia DO) Peripheral arterial disease with history of revascularization (~04/2024) Bilateral lower extremity stents Status post cataract extraction of both eyes with insertion of intraocular lens Status post open reduction with internal fixation of fracture Left patellar fracture History of loop recorder Status post urethral diverticulectomy History of appendectomy History of tonsillectomy and adenoidectomy History of bladder suspension procedure Family History Family History Sibling Asthma Father Diabetes mellitus Hypertension Social History Social History (Updated 10/27/24 @ 06:56 by Margaret Garcia DO) Social History: The patient been since 2023. She is a former smoker she smoked 2.5 packs of cigarettes per day but quit in 1993. She used to drink 3-4 alcoholic beverages a week in still will occasionally drink alcohol in moderation. She raised 5 children. 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 She still drives. She ambulates with a cane. Code status: Full code Surrogate decision maker: Meera Schultz (daughter) Smoking status: Former smoker Alcohol intake: former Substance use: never Do You Feel Safe in your Home?: Yes Lack of Transportation: No Lack of Food: Never True Current Housing: I Have Housing Concerned About Future Housing: No Difficulty Paying Gas/Electric Bills: No Difficulty Paying for Meds: No Currently Unemployed: No Education: High School Diploma/GED Difficulty w/ Childcare or Family Care: No Spiritual care concerns: No Meds Home Medications and Allergies Home Medications ?Medication ?Instructions ?Recorded ?Confirmed ?Type albuterol sulfate 2.5 mg/3 mL 2.5 mg inhalation Q4-6H PRN 10/26/24 10/27/24 History (0.083 %) solution for nebulization shortness of breath or wheezing albuterol sulfate 90 mcg/actuation 2 puff inhalation Q4-6H PRN 10/26/24 10/27/24 History aerosol inhaler shortness of breath or wheezing alendronate 70 mg tablet 70 mg PO WEEKLY 10/26/24 10/27/24 History aspirin 81 mg chewable tablet 81 mg PO DAILY 10/26/24 10/27/24 History atorvastatin 40 mg tablet 40 mg PO QPM 10/26/24 10/27/24 History benzonatate 100 mg capsule 100 mg PO TID PRN cough 10/26/24 10/27/24 History cefdinir 300 mg capsule 300 mg PO Q12H 10/26/24 10/27/24 History clopidogrel 75 mg tablet 75 mg PO DAILY 10/26/24 10/27/24 History levothyroxine 125 mcg tablet 125 mcg PO DAILY 10/26/24 10/27/24 History meclizine 25 mg tablet 25 mg PO QID PRN dizziness 10/26/24 10/27/24 History pantoprazole 40 mg tablet,delayed 40 mg PO DAILY 10/26/24 10/27/24 History release valsartan 160 1 tablet PO DAILY 10/26/24 10/27/24 History mg-hydrochlorothiazide 25 mg tablet Allergies Allergy/AdvReac Type Severity Reaction Status Date / Time levofloxacin AdvReac Abdominal Verified 10/26/24 18:04 Pain Vital Signs Vital Signs - 24 hr 10/26/24 16:56 10/26/24 17:00 10/26/24 17:15 Temperature 98.4 F Pulse Rate 116 H 117 H Respiratory Rate 39 H 22 H Blood Pressure 69/53 L 96/40 L Pulse Oximetry 96 96 95 Oxygen Delivery Room Air Nasal Cannula Oxygen Flow Rate 2 10/26/24 18:04 10/26/24 18:56 10/26/24 19:25 Temperature Pulse Rate 113 H 107 H Respiratory Rate 33 H 30 H Blood Pressure 106/68 Pulse Oximetry 96 94 95 Oxygen Delivery Nasal Cannula Oxygen Flow Rate 2 10/26/24 20:47 Temperature Pulse Rate 104 H Respiratory Rate 25 H Blood Pressure 122/74 Pulse Oximetry 100 Oxygen Delivery Oxygen Flow Rate Exam Narrative: Weight 82 kg BMI 33.1 Const: Other: Obese, acutely ill-appearing, elderly HENMT: Other: Mucous membranes are moist, no oral pharyngeal erythema, crowded posterior oropharynx Eyes: Other: Pupils are equal and reactive with evidence of bilateral lens implant Neck: Other: No JVD, no lymphadenopathy Resp: Other: Diffuse wheezing all lung olson anterior and posterior olson, crackles at the bases bilaterally, conversational tachypnea, mild accessory muscle use Cardio: Other: Regular rate, regular rhythm, 2+ bilateral radial pedal pulses, no JVD GI: Other: Distended, soft, hyperactive bowel sounds, nontender Back/Spine/Pelvis: Other: Mild thoracic kyphosis Skin: Other: Feet are cold to touch, 3-4 second cap refill, well perfused Neuro: Other: Alert oriented x4, speech is clear, no facial asymmetry, no localizing neurologic deficits noted during the course of conversation Extrem: Other: 5/5 automatic bandsaw tender strength bilaterally, 5/5 stren gth on plantar and dorsiflexion bilateral, no clubbing, no cyanosis, no edema Psych: Other: Appropriate mood and affect, pleasant and cooperative, judgment and insight intact H&P: Results Labs Labs: Short CBC 10/26/24 Range/Units 17:34 WBC 30.0 H (4.5-10.0) K/mm3 Hgb 10.6 L (12.0-15.0) g/dL Hct 35.5 L (37.0-47.0) % Plt Count 432 H (150-375) k/mm3 BMP 10/26/24 17:34 Sodium 135 L Potassium 4.3 Chloride 99 Carbon Dioxide 26 BUN 45 H Creatinine 1.39 H Glucose 125 H Calcium 9.2 Cardiac Enzymes 10/26/24 Range/Units 17:34 Troponin I 0.027 (0.000-0.034) ng/mL Liver Function 10/26/24 Range/Units 17:34 Total Bilirubin 1.0 (0.2-1.3) mg/dL AST 26 (14-36) U/L ALT 26 (6-35) U/L Alkaline Phosphatase 59 (38-126) U/L Albumin 3.8 (3.5-5.1) g/dL all labs reviewed Impressions Chest X-Ray 10/26/24 17:02 IMPRESSION: 1. Airspace opacities at left lung base, consistent with atelectasis versus pneumonia. Chest CTA 10/26/24 18:26 IMPRESSION: 1. No pulmonary embolus. Sensitivity is mildly decreased by motion artifact. 2. Mild pneumonia in lingula. 3. Mild emphysema. 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 [id number] 20:06:57 Measurements Intervals [place] Rate: 104 P: 44 [place]: 148 QRS: 56 QRSD: 86 T: 47 QT: 326 QTc: 430 Interpretive Statements SINUS TACHYCARDIA DELAYED PRECORDIAL R/S TRANSITION ANTEROSEPTAL INFARCT, AGE INDETERMINATE BORDERLINE ST ABNORMALITY- INFERIOR LEADS BASELINE ARTIFACT- I, II, AVR, AVL ABNORMAL ECG No previous ECG available for comparison All imaging and EKGs personally reviewed and interpreted. And unless stated otherwise agree with radiologic and cardiology interpretation. Assessment and Plan Assessment and plan (1) Sepsis: Qualifiers: Acute respiratory failure type: with hypoxia Sepsis acute organ dysfunction status: with acute organ dysfunction Sepsis type: sepsis due to unspecified organism Severe sepsis acute organ dysfunction type: acute respiratory failure Severe sepsis shock status: without septic shock Qualified Code(s): A41.9 - Sepsis, unspecified organism; R65.20 - Severe sepsis without septic shock; J96.01 - Acute respiratory failure with hypoxia Code(s): A41.9 - Sepsis, unspecified organism Status: Acute (2) Pneumonia due to influenza A virus: Code(s): J10.00 - Influenza due to other identified influenza virus with unspecified type of pneumonia Status: Acute (3) Acute hypoxic respiratory failure: Code(s): J96.01 - Acute respiratory failure with hypoxia Status: Acute (4) COPD (chronic obstructive pulmonary disease): Qualifiers: COPD type: COPD with acute lower respiratory infection Qualified Code(s): J44.0 - Chronic obstructive pulmonary disease with (acute) lower respiratory infection Code(s): J44.9 - Chronic obstructive pulmonary disease, unspecified Status: Acute (5) Acute kidney injury: Code(s): N17.9 - Acute kidney failure, unspecified Status: Acute (6) Hypotension: Qualifiers: Hypotension type: hypotension due to hypovolemia Qualified Code(s): E86.1 - Hypovolemia Code(s): I95.9 - Hypotension, unspecified Status: Acute (7) GERD (gastroesophageal reflux disease): Qualifiers: Esophagitis presence: esophagitis presence not specified Qualified Code(s): K21.9 - Gastro-esophageal reflux disease without esophagitis Code(s): K21.9 - Gastro-esophageal reflux disease without esophagitis Status: Acute (8) Hypothyroidism: Qualifiers: Hypothyroidism type: unspecified Qualified Code(s): E03.9 - Hypothyroidism, unspecified Code(s): E03.9 - Hypothyroidism, unspecified Status: Acute (9) Diarrhea: Qualifiers: Diarrhea type: unspecified type Qualified Code(s): R19.7 - Diarrhea, unspecified Code(s): R19.7 - Diarrhea, unspecified Status: Acute Plan The patient was initially supposed be admitted for acute hypoxic respiratory failure due to healthcare associated pneumonia but instead I suspect the patient on has incompletely treated community-acquired pneumonia secondary to influenza a. Incomplete treatment due to nonadherence antibiotic regimen due to side effects. At this time will hold patient's home cefdinir. She was started on empiric antibiotic therapy with cefepime and vancomycin in the ER. Given that her MRSA screen is negative will discontinue vancomycin is which patient to doxycycline for atypical coverage. Will continue cefepime. The patient did fit sepsis criteria with tachycardia, tachypnea, leukocytosis in the setting of pneumonia due to influenza. Tachycardia and tachypnea have improved with IV fluids, nebulizers and supplemental oxygen. The patient likely has a component of underlying COPD exacerbation due to lower respiratory tract infection. Will wean oxygen as tolerated and continue scheduled nebulizers. Patient does not use home oxygen. Will also place patient on IV Solu-Medrol q.6 hours given her degree of wheezing on exam. Patient reports significant improvement in symptoms current management. The patient declines the offer of Tamiflu given her duration of symptoms and concern for possible worsening diarrhea has a side effect. Blood cultures have been obtained and are pending. Will repeat CBC and electrolyte panel with a.m. labs. Patient is having multiple loose stools a day but C diff PCR was negative. Will provide Imodium as needed. Will avoid stool softeners. Goals of care was discussed with the patient. She would like to ponder whether not she would want to consider intubation and or cardiac resuscitation. At this time the patient remains full code. Quality VTE Prophylaxis VTE prophylaxis: mechanical ordered (SCDs) Hospitalist MIPS Advance Care Plan I have confirmed that the patient's Advanced Care Plan is present, code status is documented, or surrogate decision maker is listed in patient medical record.: Yes Medication Reconciliation I have utilized all available resources to obtain, update and review the patients current medications (includes all prescriptions, OTC, herbals, cannabis, and nutritional supplements).: Yes
[2024-10-26 21:26] LABS: Influenza A QL RT-PCR Positive (Negative); Influenza B QL RT-PCR Negative (Negative); RSV RNA, RT-PCR Negative (Negative); SARS-CoV-2 RNA PCR Negative (Negative)
[2024-10-26] MEDS: LACTATED RINGERS 500 ML 999 ML IV CONT (21:58)
[2024-10-26 22:19] LABS: Lactic Acid 2.3 mmol/L (0.7-2.0)
--- NOTE | 2024-10-26 23:25 | PC.NURSE ---
Pt. states my kidneys hurt. I feel like I have to pee but I can't. Bladder scan revealed 650mL. Straight cath performed.
--- NOTE | 2024-10-26 23:47 | ADMGEN ---
This patient, Ghazal Valadez, was admitted to Medical Room 348-. Patient/family oriented to hospital policies and general routines including ID bracelet, bed and alarms, visiting hours, pain management, procedures, bathroom and other care routines, personal items, smoking policy, room service/diet, and visiting hours. Information on how to activate the Rapid Response Team has been discussed. Patient/Family are encouraged to report perceived risks to care and to ask questions if they do not understand what they are told or what they should do.
[2024-10-27] VITALS (20 sets, daily range): BP systolic 103–126; BP diastolic 42–52; PULSE 80–95; RESP 18–20; TEMP 36.1–36.6; O2SAT 93–100
[2024-10-27] MEDS: LACTATED RINGERS 1,000 ML 100 ML IV CONT (02:51)
[2024-10-27] MEDS: methylPREDNISolone SOD SUCC 125 MG VIAL 40 MG IV PUSH ×3 (06:04→21:21)
[2024-10-27] MEDS: LEVOTHYROXINE SODIUM 125 MCG TABLET PO (06:10)
[2024-10-27 06:53] LABS: Basophils Percent Auto 0.1 % (0.2-1.2); Hematocrit 27.6 % (37.0-47.0); Hemoglobin 8.3 g/dL (12.0-15.0); Immature Granulocyte Absolute 0.28 K/mm3 (0.00-0.031); Immature Granulocyte Percent A 2.1 % (0-0.5); Lymphocytes Absolute Auto 0.46 K/mm3 (0.9-3.2); Lymphocytes Percent Auto 3.4 % (18.3-44.2); Mean Corpuscular HGB Conc 30.1 g/dl (32-36); Mean Corpuscular Hemoglobin 24.1 pg (26-34); Mean Corpuscular Volume 80.2 fl (80-100); Mean Platelet Volume 9.9 fl (7.4-10.4); Monocytes Absolute Auto 0.7 K/mm3 (0.1-0.6); Monocytes Percent Auto 5.2 % (2.6-8.5); Neutrophils Absolute Auto 12.1 K/mm3 (1.3-6.7); Neutrophils Percent Auto 89.2 % (45.5-73.1); Platelet Count Result 293 k/mm3 (150-375); Red Blood Count 3.44 M/mm3 (4.2-5.4); Red Cell Distribution Width 17.7 % (11.5-14.5); White Blood Count 13.5 K/mm3 (4.5-10.0)
[2024-10-27 07:07] LABS: Anion Gap 7 mmol/L (4-12); Blood Urea Nitrogen 35 mg/dL (7-17); Calcium 8.4 mg/dL (8.4-10.2); Carbon Dioxide 25 mmol/L (22-30); Chloride 104 mmol/L (98-107); Estimated CRCL calculation 29 ml/min; Estimated Glomerular Filt Rate 41; Glucose 122 mg/dL (65-110); Potassium 4.4 mmol/L (3.4-5.0); Sodium 136 mmol/L (137-145)
[2024-10-27] MEDS: IPRATROPIUM 0.5 MG/ALBUTEROL SULFATE 2.5 MG AMPUL.NEB 3 ML INHALATION ×3 (07:29→22:00)
[2024-10-27 07:30] LABS: Platelet Estimate Adequate (Adequate); Schistocytes None Seen
[2024-10-27 07:32] LABS: Hypochromasia 1+; Ovalocytes 2+
[2024-10-27] MEDS: CLOPIDOGREL BISULFATE 75 MG TABLET PO (09:05)
[2024-10-27] MEDS: DOXYCYCLINE 100 MG/NS 100 ML 100 MG/100 ML BAG IVPB ×2 (09:05→21:21)
[2024-10-27] MEDS: PANTOPRAZOLE 40 MG TABLET PO (09:05)
[2024-10-27] MEDS: ASPIRIN 81 MG CHEWABLE TABLET PO (09:05)
--- NOTE | 2024-10-27 12:08 | PM.IMPN ---
Progress Note: A&P Assessment and Plan (1) Sepsis: Qualifiers: Acute respiratory failure type: with hypoxia Sepsis acute organ dysfunction status: with acute organ dysfunction Sepsis type: sepsis due to unspecified organism Severe sepsis acute organ dysfunction type: acute respiratory failure Severe sepsis shock status: without septic shock Qualified Code(s): A41.9 - Sepsis, unspecified organism; R65.20 - Severe sepsis without septic shock; J96.01 - Acute respiratory failure with hypoxia Code(s): A41.9 - Sepsis, unspecified organism Status: Acute (2) Pneumonia due to influenza A virus: Code(s): J10.00 - Influenza due to other identified influenza virus with unspecified type of pneumonia Status: Acute (3) Acute hypoxic respiratory failure: Code(s): J96.01 - Acute respiratory failure with hypoxia Status: Acute (4) COPD (chronic obstructive pulmonary disease): Qualifiers: COPD type: COPD with acute lower respiratory infection Qualified Code(s): J44.0 - Chronic obstructive pulmonary disease with (acute) lower respiratory infection Code(s): J44.9 - Chronic obstructive pulmonary disease, unspecified Status: Acute (5) Acute kidney injury: Code(s): N17.9 - Acute kidney failure, unspecified Status: Acute (6) Hypotension: Qualifiers: Hypotension type: hypotension due to hypovolemia Qualified Code(s): E86.1 - Hypovolemia Code(s): I95.9 - Hypotension, unspecified Status: Acute (7) GERD (gastroesophageal reflux disease): Qualifiers: Esophagitis presence: esophagitis presence not specified Qualified Code(s): K21.9 - Gastro-esophageal reflux disease without esophagitis Code(s): K21.9 - Gastro-esophageal reflux disease without esophagitis Status: Acute (8) Hypothyroidism: Qualifiers: Hypothyroidism type: unspecified Qualified Code(s): E03.9 - Hypothyroidism, unspecified Code(s): E03.9 - Hypothyroidism, unspecified Status: Acute (9) Diarrhea: Qualifiers: Diarrhea type: unspecified type Qualified Code(s): R19.7 - Diarrhea, unspecified Code(s): R19.7 - Diarrhea, unspecified Status: Acute Plan 84-year-old female with a past medical history of COPD with continuous tobacco use, essential hypertension, GERD, coronary artery disease and hypothyroidism who presented to the ER from home due to shortness of breath. The patient was recently hospitalized at [facility] due to pneumonia. She was originally prescribed Levaquin on discharge but did not take this due to abdominal bloating and nausea She was then given a script of cefdinir which was filled today but she did not start taking any of the doses. She decided come to the ER due to the degree of her shortness of breath but she presented to our facility because she did not want to be admitted back at [facility]. She reports that she has been having a nonproductive cough for 8-10 days. She denies any fevers or chills. She reports her chest feels tight. She denies any recent known ill contacts and did receive her influenza vaccine this flu season. On arrival to ER she was hypoxic on room air, tachycardia, dyspneic and hypotensive. On 2 L nasal cannula patient oxygen saturations improved to 93-98%. She reports that ever since she was hospitalized at [facility] she had been having mushy stools. She had been having between 68 brown mushy stools a day. She denies any paola watery stools. She reports her abdomen feels distended but is nonpainful. Her bowel movements have slowed since she took and anti diarrheal at home. She reports generalized poor appetite. He does have intermittent urinary frequency and has had history of prior bladder suspension surgery and repair of a urethral diverticulum. She denies any dysuria or hematuria. Patient received 30 mL/kilos fluid bolus with normalization of her blood pressure and improvement her tachycardia. Labs demonstrated marked leukocytosis with a white count of 30 and lactic acidosis of 3 . CTA of the chest demonstrating lingular pneumonia with emphysematous changes without evidence of pulmonary embolism. Patient was started on broad-spectrum antibiotic coverage with cefepime, vancomycin and given a dose of Solu-Medrol and a DuoNeb. She was subsequently admitted in this setting. Acute hypoxic respiratory failure pneumonia COPD exacerbation Pneumonia CTA with lingular pneumonia broad-spectrum antibiotics MRSA nares negative on doxy and cefepime COPD exacerbation Sepsis Influenza a declines Tamiflu Leukocytosis Diarrhea multiple loose stools a day C diff came back negative. Imodium p.r.n. 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 Feeling much better. Does not use oxygen at home. Currently on 2 L oxygen Review of Systems Review of Systems: All systems reviewed & are unremarkable except as noted in HPI and below Exam Narrative: GENERAL: Well appearing, not in acute distress HEAD: [Normocephalic, atraumatic.] EYES: [PERRLA and EOMI.] ENT: Nares clear, no rhinorrhea or epistaxis. Mucous membranes moist. NECK: Supple. CHEST: Coarse bilateral breath sounds, End expiratory wheezes HEART: Regular rate with a regular rhythm. No murmur heard. [Normal peripheral pulses.] ABDOMEN: [Soft, nondistended], [nontender], [No rigidity or guarding] EXTREMITIES: Normal range of motion. [No edema.] SKIN: Warm, dry, no rash. NEURO: [No focal deficits]. Alert and oriented [x3.] PSYCH: [Normal mood and affect.] Objective Data Vital Signs Vital Signs: Vital Signs - 24 hr 10/26/24 16:56 10/26/24 17:00 10/26/24 17:15 Temperature 98.4 F Pulse Rate 116 H 117 H Respiratory Rate 39 H 22 H Blood Pressure 69/53 L 96/40 L Pulse Oximetry 96 96 95 Oxygen Delivery Room Air Nasal Cannula Oxygen Flow Rate 2 Fraction of Inspired Oxygen 10/26/24 18:04 10/26/24 18:56 10/26/24 19:15 Temperature Pulse Rate 113 H 107 H 105 H Respiratory Rate 33 H 30 H 20 Blood Pressure 106/68 Pulse Oximetry 96 94 Oxygen Delivery Oxygen Flow Rate Fraction of Inspired Oxygen 10/26/24 19:25 10/26/24 20:47 10/26/24 21:56 Temperature Pulse Rate 104 H 86 Respiratory Rate 25 H 25 H Blood Pressure 122/74 134/84 Pulse Oximetry 95 100 97 Oxygen Delivery Nasal Cannula Oxygen Flow Rate 2 Fraction of Inspired Oxygen 10/26/24 22:52 10/26/24 23:59 10/27/24 00:00 Temperature Pulse Rate 85 91 Respiratory Rate 25 H Blood Pressure 102/55 L Pulse Oximetry 97 97 Oxygen Delivery Nasal Cannula Oxygen Flow Rate 2 Fraction of Inspired Oxygen 10/27/24 01:00 10/27/24 02:30 10/27/24 03:30 Temperature 97.7 F Pulse Rate 87 82 Respiratory Rate 20 18 Blood Pressure 103/42 L Pulse Oximetry 98 93 Oxygen Delivery Nasal Cannula Oxygen Flow Rate 2 Fraction of Inspired Oxygen 10/27/24 03:40 10/27/24 04:00 10/27/24 06:00 Temperature 97.3 F L Pulse Rate 84 86 86 Respiratory Rate 18 18 Blood Pressure 112/48 L Pulse Oximetry 97 Oxygen Delivery Oxygen Flow Rate Fraction of Inspired Oxygen 10/27/24 07:29 10/27/24 07:29 10/27/24 07:36 Temperature Pulse Rate 80 81 Respiratory Rate 20 20 Blood Pressure Pulse Oximetry 95 Oxygen Delivery Nasal Cannula Oxygen Flow Rate 2 Fraction of Inspired Oxygen 28 Intake/Output Intake/Output: Intake & Output 10/24/24 10/25/24 10/26/24 10/27/24 23:59 23:59 23:59 23:59 Intake Total 3050 440 Output Total 700 1200 Balance 2350 -760 Meds/Results Medications: Active Medications Generic Name Dose Route Start Last Admin Trade Name Freq PRN Reason Stop Dose Admin Acetaminophen 650 mg 10/26/24 20:00 Acetaminophen 325 Mg Tablet PO Q4H PRN Mild Pain (1-3) or Fever Albuterol/Ipratropium 3 ml 10/27/24 02:00 10/27/24 07:29 Ipratropium 0.5 Mg/Albuterol Sulfate 2.5 Mg Ampul.Neb 3 Ml INHALATION 3 ml Q6HRT DEJON Administration Aspirin 81 mg 10/27/24 09:00 10/27/24 09:05 Aspirin 81 Mg Chewable Tablet PO 81 mg DAILY DEJON Administration Atorvastatin Calcium 40 mg 10/27/24 18:00 Atorvastatin 40 Mg Tablet PO QPM DEJON Benzonatate 100 mg 10/27/24 00:12 Benzonatate 100 Mg Capsule PO TID PRN cough Clopidogrel Bisulfate 75 mg 10/27/24 09:00 10/27/24 09:05 Clopidogrel Bisulfate 75 Mg Tablet PO 75 mg DAILY DEJON Administration Lactated Ringer's 1,000 mls @ 100 mls/hr 10/26/24 20:00 10/27/24 09:06 Lr - Lactated Ringers Iv IV CONT Not Given .Q10H DEJON Cefepime HCl 2 gm in 50 mls @ 100 mls/hr 10/27/24 18:00 Maxipime 2 Gm/Ns 50 Ml IVPB Q24H DEJON Doxycycline Hyclate 100 mg in 100 mls @ 100 mls/hr 10/27/24 08:00 10/27/24 09:05 Vibramycin 100 Mg/Ns 100 Ml IVPB 100 mls/hr Q12HR DEJON Administration Levothyroxine Sodium 125 mcg 10/27/24 06:30 10/27/24 06:10 Levothyroxine Sodium 125 Mcg Tablet PO 125 mcg DAILY@0630 DEJON Administration Loperamide HCl 2 mg 10/27/24 06:51 Loperamide Hcl 2 Mg Capsule PO PRN PRN Diarrhea Meclizine HCl 25 mg 10/27/24 00:12 Meclizine Hcl 25 Mg Tablet PO QID PRN dizziness Methylprednisolone Sodium Succinate 40 mg 10/27/24 06:00 10/27/24 06:04 Methylprednisolone Sod Succ 125 Mg Vial IV PUSH 40 mg Q8HR DEJON Administration Ondansetron HCl 4 mg 10/26/24 20:00 Ondansetron Inj 4 Mg/2 Ml Vial IV PUSH Q4H PRN Nausea Pantoprazole Sodium 40 mg 10/27/24 09:00 10/27/24 09:05 Pantoprazole 40 Mg Tablet PO 40 mg DAILY DEJON Administration Radiology Results: ITS Impressions Chest X-Ray 10/26/24 17:02 IMPRESSION: 1. Airspace opacities at left lung base, consistent with atelectasis versus pneumonia. Chest CTA 10/26/24 18:26 IMPRESSION: 1. No pulmonary embolus. Sensitivity is mildly decreased by motion artifact. 2. Mild pneumonia in lingula. 3. Mild emphysema. 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 Labs Labs: Laboratory Results - last 24 hr 10/26/24 10/26/24 10/26/24 16:50 17:34 19:11 WBC 30.0 H RBC 4.41 Hgb 10.6 L Hct 35.5 L MCV 80.5 MCH 24.0 L MCHC 29.9 L RDW 17.8 H Plt Count 432 H MPV 9.9 Immature Gran % (Auto) 2.6 H Neut % (Auto) 86.6 H Lymph % (Auto) 2.5 L Howard % (Auto) 7.7 Eos % (Auto) 0.2 Baso % (Auto) 0.4 Lymph # (Auto) 0.76 L Howard # (Auto) 2.3 H Eos # (Auto) 0.1 Baso # (Auto) 0.1 Abs Immat Gran (auto) 0.79 H Absolute Neuts (auto) 25.9 H Absolute Nucleated RBC 0.000 Band Neutrophils % Not Reportable Nucleated RBC % 0.0 Platelet Estimate Increased Hypochromasia 1+ Ovalocytes 1+ Schistocytes None seen Puncture Site Right brachial ABG pH 7.472 H ABG pCO2 27.6 L ABG pO2 60.0 L ABG PO2/FiO2 Ratio 2.86 ABG HCO3 19.7 L ABG O2 Saturation 92.9 L ABG O2 Content 14.1 L ABG Base Excess -2.8 A-a Gradient 56.7 Oxyhemoglobin 89.1 L Carboxyhemoglobin 1.2 Methemoglobin 0.1 Reduced Hemoglobin 9.6 H Total Hemoglobin 11.2 L O2 Delivery Device Not Reportable O2 Liters/Min Not Reportable FiO2 21 Sodium 135 L Potassium 4.3 Chloride 99 Carbon Dioxide 26 Anion Gap 10 BUN 45 H Creatinine 1.39 H Estim Creat Clear Calc 26 Estimated GFR 36 L Glucose 125 H Lactic Acid 3.3 H Calcium 9.2 Total Bilirubin 1.0 AST 26 ALT 26 Alkaline Phosphatase 59 Troponin I 0.027 C-Reactive Protein 2.2 H Total Protein 7.0 Albumin 3.8 Nasal MRSA (PCR) Not detected Influenza A (RT-PCR) Influenza B (RT-PCR) RSV (RT-PCR) SARS-CoV-2 RNA (RT-PCR) 10/26/24 10/26/24 10/27/24 20:41 21:54 06:47 WBC 13.5 H RBC 3.44 L Hgb 8.3 L Hct 27.6 L MCV 80.2 MCH 24.1 L MCHC 30.1 L RDW 17.7 H Plt Count 293 MPV 9.9 Immature Gran % (Auto) 2.1 H Neut % (Auto) 89.2 H Lymph % (Auto) 3.4 L Howard % (Auto) 5.2 Eos % (Auto) 0.0 Baso % (Auto) 0.1 L Lymph # (Auto) 0.46 L Howard # (Auto) 0.7 H Eos # (Auto) 0.0 Baso # (Auto) 0.0 Abs Immat Gran (auto) 0.28 H Absolute Neuts (auto) 12.1 H Absolute Nucleated RBC 0.000 Band Neutrophils % Not Reportable Nucleated RBC % 0.0 Platelet Estimate Adequate Hypochromasia 1+ Ovalocytes 2+ Schistocytes None seen Puncture Site ABG pH ABG pCO2 ABG pO2 ABG PO2/FiO2 Ratio ABG HCO3 ABG O2 Saturation ABG O2 Content ABG Base Excess A-a Gradient Oxyhemoglobin Carboxyhemoglobin Methemoglobin Reduced Hemoglobin Total Hemoglobin O2 Delivery Device O2 Liters/Min FiO2 Sodium 136 L Potassium 4.4 Chloride 104 Carbon Dioxide 25 Anion Gap 7 BUN 35 H D Creatinine 1.23 H Estim Creat Clear Calc 29 Estimated GFR 41 L Glucose 122 H Lactic Acid 2.3 H Calcium 8.4 Total Bilirubin AST ALT Alkaline Phosphatase Troponin I C-Reactive Protein Total Protein Albumin Nasal MRSA (PCR) Influenza A (RT-PCR) Positive A Influenza B (RT-PCR) Negative RSV (RT-PCR) Negative SARS-CoV-2 RNA (RT-PCR) Negative
[2024-10-27] MEDS: ATORVASTATIN 40 MG TABLET PO (17:56)
[2024-10-27] MEDS: CEFEPIME 2 GM/NS 50 ML 2 GM/50 ML BAG IVPB (17:57)
[2024-10-27] MEDS: SALINE LOCK FLUSH 10 ML IV PUSH (21:23)
[2024-10-28] VITALS (16 sets, daily range): BP systolic 114–154; BP diastolic 51–67; PULSE 81–117; RESP 16–20; TEMP 36.2–36.3; O2SAT 93–100
[2024-10-28] MEDS: IPRATROPIUM 0.5 MG/ALBUTEROL SULFATE 2.5 MG AMPUL.NEB 3 ML INHALATION ×3 (03:30→14:17)
[2024-10-28 04:59] LABS: Toxigenic C. Diff NEGATIVE (NEGATIVE)
[2024-10-28] MEDS: methylPREDNISolone SOD SUCC 125 MG VIAL 40 MG IV PUSH (05:46)
[2024-10-28] MEDS: SALINE LOCK FLUSH 10 ML IV PUSH ×3 (05:46→22:00)
[2024-10-28] MEDS: LEVOTHYROXINE SODIUM 125 MCG TABLET PO (05:46)
[2024-10-28 06:30] LABS: Basophils Percent Auto 0.1 % (0.2-1.2); Hematocrit 28.5 % (37.0-47.0); Hemoglobin 8.1 g/dL (12.0-15.0); Immature Granulocyte Percent A 0.9 % (0-0.5); Lymphocytes Absolute Auto 0.27 K/mm3 (0.9-3.2); Lymphocytes Percent Auto 2.4 % (18.3-44.2); Mean Corpuscular HGB Conc 28.4 g/dl (32-36); Mean Corpuscular Hemoglobin 23.9 pg (26-34); Mean Corpuscular Volume 84.1 fl (80-100); Mean Platelet Volume 9.9 fl (7.4-10.4); Monocytes Absolute Auto 0.5 K/mm3 (0.1-0.6); Monocytes Percent Auto 4.6 % (2.6-8.5); Neutrophils Absolute Auto 10.3 K/mm3 (1.3-6.7); Platelet Count Result 269 k/mm3 (150-375); Red Blood Count 3.39 M/mm3 (4.2-5.4); Red Cell Distribution Width 17.6 % (11.5-14.5); White Blood Count 11.2 K/mm3 (4.5-10.0)
[2024-10-28 06:44] LABS: Alanine Aminotransferase 24 U/L (6-35); Albumin Level 3.4 g/dL (3.5-5.1); Alkaline Phosphatase 55 U/L (38-126); Anion Gap 12 mmol/L (4-12); Aspartate Amino Transferase 23 U/L (14-36); Bilirubin,Total 0.6 mg/dL (0.2-1.3); Blood Urea Nitrogen 38 mg/dL (7-17); Calcium 9.1 mg/dL (8.4-10.2); Carbon Dioxide 21 mmol/L (22-30); Chloride 104 mmol/L (98-107); Estimated CRCL calculation 33 ml/min; Estimated Glomerular Filt Rate 48; Glucose 140 mg/dL (65-110); Magnesium 1.7 mg/dL (1.6-2.3); Potassium 4.7 mmol/L (3.4-5.0); Sodium 137 mmol/L (137-145)
[2024-10-28 06:57] LABS: Hypochromasia 1+; Ovalocytes 2+; Platelet Estimate Adequate (Adequate); Schistocytes None Seen
[2024-10-28] MEDS: PANTOPRAZOLE 40 MG TABLET PO (09:29)
[2024-10-28] MEDS: ASPIRIN 81 MG CHEWABLE TABLET PO (09:29)
[2024-10-28] MEDS: DOXYCYCLINE 100 MG/NS 100 ML 100 MG/100 ML BAG IVPB ×2 (09:29→20:48)
[2024-10-28] MEDS: CLOPIDOGREL BISULFATE 75 MG TABLET PO (09:29)
[2024-10-28] MEDS: ACETAMINOPHEN 325 MG TABLET 650 MG PO (09:44)
--- NOTE | 2024-10-28 12:17 | PM.IMPN ---
Progress Note: A&P Assessment and Plan (1) Sepsis: Qualifiers: Acute respiratory failure type: with hypoxia Sepsis acute organ dysfunction status: with acute organ dysfunction Sepsis type: sepsis due to unspecified organism Severe sepsis acute organ dysfunction type: acute respiratory failure Severe sepsis shock status: without septic shock Qualified Code(s): A41.9 - Sepsis, unspecified organism; R65.20 - Severe sepsis without septic shock; J96.01 - Acute respiratory failure with hypoxia Code(s): A41.9 - Sepsis, unspecified organism Status: Acute (2) Pneumonia due to influenza A virus: Code(s): J10.00 - Influenza due to other identified influenza virus with unspecified type of pneumonia Status: Acute (3) Acute hypoxic respiratory failure: Code(s): J96.01 - Acute respiratory failure with hypoxia Status: Acute (4) COPD (chronic obstructive pulmonary disease): Qualifiers: COPD type: COPD with acute lower respiratory infection Qualified Code(s): J44.0 - Chronic obstructive pulmonary disease with (acute) lower respiratory infection Code(s): J44.9 - Chronic obstructive pulmonary disease, unspecified Status: Acute (5) Acute kidney injury: Code(s): N17.9 - Acute kidney failure, unspecified Status: Acute (6) Hypotension: Qualifiers: Hypotension type: hypotension due to hypovolemia Qualified Code(s): E86.1 - Hypovolemia Code(s): I95.9 - Hypotension, unspecified Status: Acute (7) GERD (gastroesophageal reflux disease): Qualifiers: Esophagitis presence: esophagitis presence not specified Qualified Code(s): K21.9 - Gastro-esophageal reflux disease without esophagitis Code(s): K21.9 - Gastro-esophageal reflux disease without esophagitis Status: Acute (8) Hypothyroidism: Qualifiers: Hypothyroidism type: unspecified Qualified Code(s): E03.9 - Hypothyroidism, unspecified Code(s): E03.9 - Hypothyroidism, unspecified Status: Acute (9) Diarrhea: Qualifiers: Diarrhea type: unspecified type Qualified Code(s): R19.7 - Diarrhea, unspecified Code(s): R19.7 - Diarrhea, unspecified Status: Acute Plan 84-year-old female with a past medical history of COPD with continuous tobacco use, essential hypertension, GERD, coronary artery disease and hypothyroidism who presented to the ER from home due to shortness of breath. The patient was recently hospitalized at [facility] [place] due to pneumonia. She was originally prescribed Levaquin on discharge but did not take this due to abdominal bloating and nausea She was then given a script of cefdinir which was filled today but she did not start taking any of the doses. She decided come to the ER due to the degree of her shortness of breath but she presented to our facility because she did not want to be admitted back at [place] [facility]. She reports that she has been having a nonproductive cough for 8-10 days. She denies any fevers or chills. She reports her chest feels tight. She denies any recent known ill contacts and did receive her influenza vaccine this flu season. On arrival to ER she was hypoxic on room air, tachycardia, dyspneic and hypotensive. On 2 L nasal cannula patient oxygen saturations improved to 93-98%. She reports that ever since she was hospitalized at [place] she had been having mushy stools. She had been having between 68 brown mushy stools a day. She denies any paola watery stools. She reports her abdomen feels distended but is nonpainful. Her bowel movements have slowed since she took and anti diarrheal at home. She reports generalized poor appetite. He does have intermittent urinary frequency and has had history of prior bladder suspension surgery and repair of a urethral diverticulum. She denies any dysuria or hematuria. Patient received 30 mL/kilos fluid bolus with normalization of her blood pressure and improvement her tachycardia. Labs demonstrated marked leukocytosis with a white count of 30 and lactic acidosis of 3 . CTA of the chest demonstrating lingular pneumonia with emphysematous changes without evidence of pulmonary embolism. Patient was started on broad-spectrum antibiotic coverage with cefepime, vancomycin and given a dose of Solu-Medrol and a DuoNeb. She was subsequently admitted in this setting. Acute hypoxic respiratory failure due to pneumonia and COPD exacerbation Pneumonia CTA with lingular pneumonia broad-spectrum antibiotics MRSA nares negative on doxy and cefepime COPD exacerbation add Mucinex on Solu-Medrol lower the dose Sepsis Influenza a declines Tamiflu Leukocytosis Diarrhea multiple loose stools a day C diff came back negative. Imodium p.r.n. 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 Better than when she came in. No chest pain Review of Systems Review of Systems: All systems reviewed & are unremarkable except as noted in HPI and below Exam Narrative: GENERAL: Well appearing, not in acute distress HEAD: [Normocephalic, atraumatic.] EYES: [PERRLA and EOMI.] ENT: Nares clear, no rhinorrhea or epistaxis. Mucous membranes moist. NECK: Supple. CHEST: Coarse bilateral breath sounds, End expiratory wheezes HEART: Regular rate with a regular rhythm. No murmur heard. [Normal peripheral pulses.] ABDOMEN: [Soft, nondistended], [nontender], [No rigidity or guarding] EXTREMITIES: Normal range of motion. [No edema.] SKIN: Warm, dry, no rash. NEURO: [No focal deficits]. Alert and oriented [x3.] PSYCH: [Normal mood and affect.] Objective Data Vital Signs Vital Signs: Vital Signs - 24 hr 10/27/24 13:13 10/27/24 13:13 10/27/24 13:19 Temperature Pulse Rate 89 90 Respiratory Rate 20 20 Blood Pressure Pulse Oximetry 97 Oxygen Delivery Nasal Cannula Oxygen Flow Rate 2 Fraction of Inspired Oxygen 28 10/27/24 15:40 10/27/24 16:00 10/27/24 20:00 Temperature 97.9 F Pulse Rate 95 92 90 Respiratory Rate 18 Blood Pressure 117/43 L Pulse Oximetry 97 Oxygen Delivery Oxygen Flow Rate Fraction of Inspired Oxygen 10/27/24 22:00 10/27/24 22:13 10/27/24 22:35 Temperature 97.0 F L Pulse Rate 81 89 89 Respiratory Rate 20 20 20 Blood Pressure 126/52 L Pulse Oximetry 100 Oxygen Delivery Oxygen Flow Rate Fraction of Inspired Oxygen 10/28/24 00:00 10/28/24 03:30 10/28/24 03:38 Temperature Pulse Rate 96 90 86 Respiratory Rate 20 20 Blood Pressure Pulse Oximetry Oxygen Delivery Oxygen Flow Rate Fraction of Inspired Oxygen 10/28/24 04:00 10/28/24 06:00 10/28/24 08:35 Temperature 97.2 F L Pulse Rate 117 H 91 Respiratory Rate 20 Blood Pressure 136/60 Pulse Oximetry 100 99 Oxygen Delivery Nasal Cannula Oxygen Flow Rate 1.5 Fraction of Inspired Oxygen 10/28/24 08:35 10/28/24 08:47 Temperature Pulse Rate 81 83 Respiratory Rate 20 20 Blood Pressure Pulse Oximetry Oxygen Delivery Oxygen Flow Rate Fraction of Inspired Oxygen Intake/Output Intake/Output: Intake & Output 10/25/24 10/26/24 10/27/24 10/28/24 23:59 23:59 23:59 23:59 Intake Total 3050 1485 740 Output Total 700 1800 1100 Balance 2520 -286 -540 Meds/Results Medications: Active Medications Generic Name Dose Route Start Last Admin Trade Name Freq PRN Reason Stop Dose Admin Acetaminophen 650 mg 10/26/24 20:00 10/28/24 09:44 Acetaminophen 325 Mg Tablet PO 650 mg Q4H PRN Administration Mild Pain (1-3) or Fever Albuterol/Ipratropium 3 ml 10/27/24 02:00 10/28/24 08:34 Ipratropium 0.5 Mg/Albuterol Sulfate 2.5 Mg Ampul.Neb 3 Ml INHALATION 3 ml Q6HRT DEJON Administration Aspirin 81 mg 10/27/24 09:00 10/28/24 09:29 Aspirin 81 Mg Chewable Tablet PO 81 mg DAILY DEJON Administration Atorvastatin Calcium 40 mg 10/27/24 18:00 10/27/24 17:56 Atorvastatin 40 Mg Tablet PO 40 mg QPM DEJON Administration Benzonatate 100 mg 10/27/24 00:12 Benzonatate 100 Mg Capsule PO TID PRN cough Clopidogrel Bisulfate 75 mg 10/27/24 09:00 10/28/24 09:29 Clopidogrel Bisulfate 75 Mg Tablet PO 75 mg DAILY DEJON Administration Cefepime HCl 2 gm in 50 mls @ 100 mls/hr 10/27/24 18:00 10/27/24 17:57 Maxipime 2 Gm/Ns 50 Ml IVPB 100 mls/hr Q24H DEJON Administration Doxycycline Hyclate 100 mg in 100 mls @ 100 mls/hr 10/27/24 08:00 10/28/24 09:29 Vibramycin 100 Mg/Ns 100 Ml IVPB 100 mls/hr Q12HR DEJON Administration Levothyroxine Sodium 125 mcg 10/27/24 06:30 10/28/24 05:46 Levothyroxine Sodium 125 Mcg Tablet PO 125 mcg DAILY@0630 DEJON Administration Loperamide HCl 2 mg 10/27/24 06:51 Loperamide Hcl 2 Mg Capsule PO PRN PRN Diarrhea Meclizine HCl 25 mg 10/27/24 00:12 Meclizine Hcl 25 Mg Tablet PO QID PRN dizziness Methylprednisolone Sodium Succinate 40 mg 10/27/24 06:00 10/28/24 05:46 Methylprednisolone Sod Succ 125 Mg Vial IV PUSH 40 mg Q8HR DEJON Administration Ondansetron HCl 4 mg 10/26/24 20:00 Ondansetron Inj 4 Mg/2 Ml Vial IV PUSH Q4H PRN Nausea Pantoprazole Sodium 40 mg 10/27/24 09:00 10/28/24 09:29 Pantoprazole 40 Mg Tablet PO 40 mg DAILY DEJON Administration Sodium Chloride 10 ml 10/27/24 22:00 10/28/24 05:46 Saline Lock Flush IV PUSH 10 ml Q8HR DEJON Administration Sodium Chloride 10 ml 10/27/24 15:26 Saline Lock Flush IV PUSH PRN PRN Flush Sodium Chloride 20 ml 10/27/24 15:26 Saline Lock Flush IV PUSH PRN PRN after blood draws Radiology Results: ITS Impressions Chest X-Ray 10/26/24 17:02 IMPRESSION: 1. Airspace opacities at left lung base, consistent with atelectasis versus pneumonia. Chest CTA 10/26/24 18:26 IMPRESSION: 1. No pulmonary embolus. Sensitivity is mildly decreased by motion artifact. 2. Mild pneumonia in lingula. 3. Mild emphysema. 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 Labs Labs: Laboratory Results - last 24 hr 10/28/24 10/28/24 04:04 06:19 WBC 11.2 H RBC 3.39 L Hgb 8.1 L Hct 28.5 L MCV 84.1 MCH 23.9 L MCHC 28.4 L RDW 17.6 H Plt Count 269 MPV 9.9 Immature Gran % (Auto) 0.9 H Neut % (Auto) 92.0 H Lymph % (Auto) 2.4 L [place] % (Auto) 4.6 Eos % (Auto) 0.0 Baso % (Auto) 0.1 L Lymph # (Auto) 0.27 L [place] # (Auto) 0.5 Eos # (Auto) 0.0 Baso # (Auto) 0.0 Abs Immat Gran (auto) 0.10 H Absolute Neuts (auto) 10.3 H Absolute Nucleated RBC 0.000 Band Neutrophils % Not Reportable Nucleated RBC % 0.0 Platelet Estimate Adequate Hypochromasia 1+ Ovalocytes 2+ Schistocytes None seen Sodium 137 Potassium 4.7 Chloride 104 Carbon Dioxide 21 L Anion Gap 12 BUN 38 H Creatinine 1.09 H Estim Creat Clear Calc 33 Estimated GFR 48 L Glucose 140 H Calcium 9.1 Magnesium 1.7 Total Bilirubin 0.6 AST 23 ALT 24 Alkaline Phosphatase 55 Total Protein 6.0 L Albumin 3.4 L C. difficile (PCR) Negative
[2024-10-28] MEDS: guaiFENesin 12 HR 600 MG TABCR PO ×2 (12:55→20:48)
[2024-10-28] MEDS: methylPREDNISolone SOD SUCC 40 MG VIAL IV PUSH (17:56)
[2024-10-28] MEDS: CEFEPIME 2 GM/NS 50 ML 2 GM/50 ML BAG IVPB (17:57)
[2024-10-28] MEDS: ATORVASTATIN 40 MG TABLET PO (17:57)
--- NOTE | 2024-10-28 23:45 | ECG_ITS ---
Test Date: 2024-10-29 12:52:24 Measurements Intervals [place] Rate: 93 P: 52 VA: 157 QRS: 38 QRSD: 90 T: 34 QT: 332 QTc: 413 Interpretive Statements SINUS RHYTHM MINIMAL Q WAVES- INFERIOR LEADS BORDERLINE ECG Compared to ECG 10/26/2024 20:06:57 HEART RATE HAS DECREASED Electronically Signed On 10-29-2024 13:18:44 [employer] by Gurdeep Romero D.O.
--- NOTE | 2024-10-28 23:48 | PC.NURSE ---
Patient called editorial writer to the room after her 2100 Doxycycline started to infuse. Patient was reporting left lateral rib cage pain that started with the infusion. Electroplater Apprentice paused the infusion and restarted after 15 minutes and half the rate.. Patient again reported rib cage pain and left arm feeing cold and numb. Infusion was stopped and charge nurse was notified and came to room to do an assessment. Pain had subsided at this time. Charge nurse attempted multiple times to gain IV access in right arm without success. Hospitalist was notified at this time. See new orders.
[2024-10-29] VITALS (16 sets, daily range): BP systolic 129–155; BP diastolic 45–80; PULSE 75–112; RESP 18–24; TEMP 36.3–36.4; O2SAT 92–97
--- NOTE | 2024-10-29 00:05 | PCRCNOTE ---
Window of time for administration has passed. See next scheduled administration.
[2024-10-29 01:22] LABS: Troponin I 0.017 ng/mL (0.000-0.034)
[2024-10-29] MEDS: DOXYCYCLINE HYCLATE 100 MG TABLET PO ×3 (01:25→21:12)
[2024-10-29] MEDS: IPRATROPIUM 0.5 MG/ALBUTEROL SULFATE 2.5 MG AMPUL.NEB 3 ML INHALATION ×4 (03:15→19:51)
[2024-10-29] MEDS: LEVOTHYROXINE SODIUM 125 MCG TABLET PO (05:46)
--- NOTE | 2024-10-29 05:48 | PC.NURSE ---
Holding 6am medication and line flush until midline assessed by vascular access this am.
[2024-10-29 06:02] LABS: Basophils Percent Auto 0.1 % (0.2-1.2); Hemoglobin 8.2 g/dL (12.0-15.0); Immature Granulocyte Absolute 0.13 K/mm3 (0.00-0.031); Lymphocytes Percent Auto 3.8 % (18.3-44.2); Mean Corpuscular HGB Conc 28.3 g/dl (32-36); Mean Corpuscular Hemoglobin 23.8 pg (26-34); Mean Corpuscular Volume 84.3 fl (80-100); Mean Platelet Volume 10.7 fl (7.4-10.4); Monocytes Percent Auto 7.8 % (2.6-8.5); Neutrophils Absolute Auto 11.5 K/mm3 (1.3-6.7); Neutrophils Percent Auto 87.3 % (45.5-73.1); Platelet Count Result 278 k/mm3 (150-375); Red Blood Count 3.44 M/mm3 (4.2-5.4); Red Cell Distribution Width 17.7 % (11.5-14.5); White Blood Count 13.1 K/mm3 (4.5-10.0)
[2024-10-29 06:16] LABS: Alanine Aminotransferase 25 U/L (6-35); Albumin Level 3.6 g/dL (3.5-5.1); Alkaline Phosphatase 59 U/L (38-126); Anion Gap 9 mmol/L (4-12); Aspartate Amino Transferase 27 U/L (14-36); Bilirubin,Total 0.6 mg/dL (0.2-1.3); Blood Urea Nitrogen 42 mg/dL (7-17); Calcium 9.4 mg/dL (8.4-10.2); Carbon Dioxide 22 mmol/L (22-30); Chloride 105 mmol/L (98-107); Estimated CRCL calculation 37 ml/min; Estimated Glomerular Filt Rate 54; Glucose 113 mg/dL (65-110); Magnesium 1.8 mg/dL (1.6-2.3); Potassium 5.5 mmol/L (3.4-5.0); Sodium 136 mmol/L (137-145)
[2024-10-29 07:13] LABS: Anisocytosis 1+; Burr Cells 1+; Ovalocytes 2+; Platelet Estimate Adequate (Adequate); Schistocytes None Seen
[2024-10-29] MEDS: guaiFENesin 12 HR 600 MG TABCR PO ×2 (08:31→21:12)
[2024-10-29] MEDS: CLOPIDOGREL BISULFATE 75 MG TABLET PO (08:31)
[2024-10-29] MEDS: PANTOPRAZOLE 40 MG TABLET PO (08:31)
[2024-10-29] MEDS: ASPIRIN 81 MG CHEWABLE TABLET PO (08:31)
--- NOTE | 2024-10-29 12:43 | PM.IMPN ---
Progress Note: A&P Assessment and Plan (1) Sepsis: Qualifiers: Acute respiratory failure type: with hypoxia Sepsis acute organ dysfunction status: with acute organ dysfunction Sepsis type: sepsis due to unspecified organism Severe sepsis acute organ dysfunction type: acute respiratory failure Severe sepsis shock status: without septic shock Qualified Code(s): A41.9 - Sepsis, unspecified organism; R65.20 - Severe sepsis without septic shock; J96.01 - Acute respiratory failure with hypoxia Code(s): A41.9 - Sepsis, unspecified organism Status: Acute (2) Pneumonia due to influenza A virus: Code(s): J10.00 - Influenza due to other identified influenza virus with unspecified type of pneumonia Status: Acute (3) Acute hypoxic respiratory failure: Code(s): J96.01 - Acute respiratory failure with hypoxia Status: Acute (4) COPD (chronic obstructive pulmonary disease): Qualifiers: COPD type: COPD with acute lower respiratory infection Qualified Code(s): J44.0 - Chronic obstructive pulmonary disease with (acute) lower respiratory infection Code(s): J44.9 - Chronic obstructive pulmonary disease, unspecified Status: Acute (5) Acute kidney injury: Code(s): N17.9 - Acute kidney failure, unspecified Status: Acute (6) Hypotension: Qualifiers: Hypotension type: hypotension due to hypovolemia Qualified Code(s): E86.1 - Hypovolemia Code(s): I95.9 - Hypotension, unspecified Status: Acute (7) GERD (gastroesophageal reflux disease): Qualifiers: Esophagitis presence: esophagitis presence not specified Qualified Code(s): K21.9 - Gastro-esophageal reflux disease without esophagitis Code(s): K21.9 - Gastro-esophageal reflux disease without esophagitis Status: Acute (8) Hypothyroidism: Qualifiers: Hypothyroidism type: unspecified Qualified Code(s): E03.9 - Hypothyroidism, unspecified Code(s): E03.9 - Hypothyroidism, unspecified Status: Acute (9) Diarrhea: Qualifiers: Diarrhea type: unspecified type Qualified Code(s): R19.7 - Diarrhea, unspecified Code(s): R19.7 - Diarrhea, unspecified Status: Acute Plan 84-year-old female with a past medical history of COPD with continuous tobacco use, essential hypertension, GERD, coronary artery disease and hypothyroidism who presented to the ER from home due to shortness of breath. The patient was recently hospitalized at [place] due to pneumonia. She was originally prescribed Levaquin on discharge but did not take this due to abdominal bloating and nausea She was then given a script of cefdinir which was filled today but she did not start taking any of the doses. She decided come to the ER due to the degree of her shortness of breath but she presented to our facility because she did not want to be admitted back at [facility]. She reports that she has been having a nonproductive cough for 8-10 days. She denies any fevers or chills. She reports her chest feels tight. She denies any recent known ill contacts and did receive her influenza vaccine this flu season. On arrival to ER she was hypoxic on room air, tachycardia, dyspneic and hypotensive. On 2 L nasal cannula patient oxygen saturations improved to 93-98%. She reports that ever since she was hospitalized at [place] she had been having mushy stools. She had been having between 68 brown mushy stools a day. She denies any paola watery stools. She reports her abdomen feels distended but is nonpainful. Her bowel movements have slowed since she took and anti diarrheal at home. She reports generalized poor appetite. He does have intermittent urinary frequency and has had history of prior bladder suspension surgery and repair of a urethral diverticulum. She denies any dysuria or hematuria. Patient received 30 mL/kilos fluid bolus with normalization of her blood pressure and improvement her tachycardia. Labs demonstrated marked leukocytosis with a white count of 30 and lactic acidosis of 3 . CTA of the chest demonstrating lingular pneumonia with emphysematous changes without evidence of pulmonary embolism. Patient was started on broad-spectrum antibiotic coverage with cefepime, vancomycin and given a dose of Solu-Medrol and a DuoNeb. She was subsequently admitted in this setting. Acute hypoxic respiratory failure due to pneumonia and COPD exacerbation Pneumonia CTA with lingular pneumonia broad-spectrum antibiotics MRSA nares negative on doxy and cefepime. Will transition to oral antibiotics today COPD exacerbation add Mucinex on Solu-Medrol lower the dose. Change to prednisone today Sepsis Influenza a declines Tamiflu treatment Leukocytosis likely due to steroid Diarrhea multiple loose stools a day C diff came back negative. Imodium p.r.n. 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 It has now resolved. Troponin came back negative. Breathing is better today. She has been off oxygen this a.m.. Review of Systems Review of Systems: All systems reviewed & are unremarkable except as noted in HPI and below Exam Narrative: GENERAL: Well appearing, not in acute distress HEAD: [Normocephalic, atraumatic.] EYES: [PERRLA and EOMI.] ENT: Nares clear, no rhinorrhea or epistaxis. Mucous membranes moist. NECK: Supple. CHEST: Coarse bilateral breath sounds, End expiratory wheezes HEART: Regular rate with a regular rhythm. No murmur heard. [Normal peripheral pulses.] ABDOMEN: [Soft, nondistended], [nontender], [No rigidity or guarding] EXTREMITIES: Normal range of motion. [No edema.] SKIN: Warm, dry, no rash. NEURO: [No focal deficits]. Alert and oriented [x3.] PSYCH: [Normal mood and affect.] Objective Data Vital Signs Vital Signs: Vital Signs - 24 hr 10/28/24 14:00 10/28/24 14:20 10/28/24 14:20 Temperature 97.1 F L Pulse Rate 95 86 Respiratory Rate 18 20 Blood Pressure 114/51 L Pulse Oximetry 97 96 Oxygen Delivery Nasal Cannula Oxygen Flow Rate 1 10/28/24 14:27 10/28/24 16:00 10/28/24 20:00 Temperature Pulse Rate 84 93 Respiratory Rate 20 Blood Pressure Pulse Oximetry 99 Oxygen Delivery Nasal Cannula Oxygen Flow Rate 2 10/28/24 20:00 10/28/24 22:18 10/29/24 00:00 Temperature 97.3 F L Pulse Rate 91 92 92 Respiratory Rate 16 Blood Pressure 154/67 H Pulse Oximetry 93 Oxygen Delivery Oxygen Flow Rate 10/29/24 03:00 10/29/24 03:11 10/29/24 04:00 Temperature Pulse Rate 84 92 112 H Respiratory Rate 20 20 Blood Pressure Pulse Oximetry Oxygen Delivery Oxygen Flow Rate 10/29/24 06:00 10/29/24 08:05 10/29/24 08:37 Temperature 97.5 F L Pulse Rate 88 75 Respiratory Rate 18 Blood Pressure 155/74 H Pulse Oximetry 97 Oxygen Delivery Room Air Oxygen Flow Rate 10/29/24 09:00 10/29/24 09:00 10/29/24 09:10 Temperature Pulse Rate 89 87 Respiratory Rate 18 18 Blood Pressure Pulse Oximetry 94 Oxygen Delivery Room Air Oxygen Flow Rate Intake/Output Intake/Output: Intake & Output 10/26/24 10/27/24 10/28/24 10/29/24 23:59 23:59 23:59 23:59 Intake Total 3050 1535 1881.7 680 Output Total 700 1800 1999 210 Balance 2350 -265 -118.3 -1421 Meds/Results Medications: Active Medications Generic Name Dose Route Start Last Admin Trade Name Freq PRN Reason Stop Dose Admin Acetaminophen 650 mg 10/26/24 20:00 10/28/24 09:44 Acetaminophen 325 Mg Tablet PO 650 mg Q4H PRN Administration Mild Pain (1-3) or Fever Albuterol/Ipratropium 3 ml 10/27/24 02:00 10/29/24 09:00 Ipratropium 0.5 Mg/Albuterol Sulfate 2.5 Mg Ampul.Neb 3 Ml INHALATION 3 ml Q6HRT DEJON Administration Amoxicillin/Clavulanate Potassium 1 tablet 10/29/24 18:00 Amoxicillin/Clavulanate K 875-125 Mg Tab PO 11/03/24 09:01 Q12HR COUNT INCLUDES THE [facility] Aspirin 81 mg 10/27/24 09:00 10/29/24 08:31 Aspirin 81 Mg Chewable Tablet PO 81 mg DAILY DEJON Administration Atorvastatin Calcium 40 mg 10/27/24 18:00 10/28/24 17:57 Atorvastatin 40 Mg Tablet PO 40 mg QPM DEJON Administration Benzonatate 100 mg 10/27/24 00:12 Benzonatate 100 Mg Capsule PO TID PRN cough Clopidogrel Bisulfate 75 mg 10/27/24 09:00 10/29/24 08:31 Clopidogrel Bisulfate 75 Mg Tablet PO 75 mg DAILY COUNT INCLUDES THE [facility] Administration Doxycycline Hyclate 100 mg 10/29/24 09:50 Doxycycline Hyclate 100 Mg Tablet PO 11/02/24 21:01 Q12HR COUNT INCLUDES THE [facility] Guaifenesin 600 mg 10/28/24 12:20 10/29/24 08:31 Guaifenesin 12 Hr 600 Mg Tabcr PO 600 mg Q12HR DEJON Administration Levothyroxine Sodium 125 mcg 10/27/24 06:30 10/29/24 05:46 Levothyroxine Sodium 125 Mcg Tablet PO 125 mcg DAILY@0630 DEJON Administration Loperamide HCl 2 mg 10/27/24 06:51 Loperamide Hcl 2 Mg Capsule PO PRN PRN Diarrhea Meclizine HCl 25 mg 10/27/24 00:12 Meclizine Hcl 25 Mg Tablet PO QID PRN dizziness Methylprednisolone Sodium Succinate 40 mg 10/28/24 18:00 10/29/24 05:48 Methylprednisolone Sod Succ 40 Mg Vial IV PUSH Not Given Q12H DEJON Ondansetron HCl 4 mg 10/26/24 20:00 Ondansetron Inj 4 Mg/2 Ml Vial IV PUSH Q4H PRN Nausea Pantoprazole Sodium 40 mg 10/27/24 09:00 10/29/24 08:31 Pantoprazole 40 Mg Tablet PO 40 mg DAILY DEJON Administration Sodium Chloride 10 ml 10/27/24 22:00 10/29/24 05:48 Saline Lock Flush IV PUSH Not Given Q8HR DEJON Sodium Chloride 10 ml 10/27/24 15:26 Saline Lock Flush IV PUSH PRN PRN Flush Sodium Chloride 20 ml 10/27/24 15:26 Saline Lock Flush IV PUSH PRN PRN after blood draws Radiology Results: ITS Impressions Chest X-Ray 10/26/24 17:02 IMPRESSION: 1. Airspace opacities at left lung base, consistent with atelectasis versus pneumonia. Chest CTA 10/26/24 18:26 IMPRESSION: 1. No pulmonary embolus. Sensitivity is mildly decreased by motion artifact. 2. Mild pneumonia in lingula. 3. Mild emphysema. 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 Labs Labs: Laboratory Results - last 24 hr 10/28/24 10/29/24 23:58 05:46 WBC 13.1 H RBC 3.44 L Hgb 8.2 L Hct 29.0 L MCV 84.3 MCH 23.8 L MCHC 28.3 L RDW 17.7 H Plt Count 278 MPV 10.7 H Immature Gran % (Auto) 1.0 H Neut % (Auto) 87.3 H Lymph % (Auto) 3.8 L [place] % (Auto) 7.8 Eos % (Auto) 0.0 Baso % (Auto) 0.1 L Lymph # (Auto) 0.50 L [place] # (Auto) 1.0 H Eos # (Auto) 0.0 Baso # (Auto) 0.0 Abs Immat Gran (auto) 0.13 H Absolute Neuts (auto) 11.5 H Absolute Nucleated RBC 0.000 Band Neutrophils % Not Reportable Nucleated RBC % 0.0 Platelet Estimate Adequate Anisocytosis 1+ Ovalocytes 2+ [place] Cells 1+ Schistocytes None seen Sodium 136 L Potassium 5.5 H Chloride 105 Carbon Dioxide 22 Anion Gap 9 BUN 42 H Creatinine 0.98 Estim Creat Clear Calc 37 Estimated GFR 54 L Glucose 113 H Calcium 9.4 Magnesium 1.8 Total Bilirubin 0.6 AST 27 ALT 25 Alkaline Phosphatase 59 Troponin I 0.017 Total Protein 6.0 L Albumin 3.6
[2024-10-29] MEDS: predniSONE 20 MG TABLET 40 MG PO (13:50)
[2024-10-29] MEDS: SALINE LOCK FLUSH 10 ML IV PUSH ×2 (13:52→21:12)
[2024-10-29] MEDS: AMOXICILLIN/CLAVULANATE K 875-125 MG TAB 1 TABLET PO (17:27)
[2024-10-29] MEDS: ATORVASTATIN 40 MG TABLET PO (17:27)
[2024-10-29] MEDS: ALPRAZolam (*CRX) 0.25 MG TABLET PO (22:01)
[2024-10-30] VITALS (11 sets, daily range): BP systolic 129–154; BP diastolic 61–68; PULSE 83–111; RESP 18–24; TEMP 36.1–36.2; O2SAT 92–98
[2024-10-30] MEDS: LEVALBUTEROL NEB 1.25 MG/3 ML INHALATION ×4 (02:52→19:33)
[2024-10-30] MEDS: LEVOTHYROXINE SODIUM 125 MCG TABLET PO (05:30)
[2024-10-30] MEDS: SALINE LOCK FLUSH 10 ML IV PUSH ×3 (05:30→20:28)
[2024-10-30 05:58] LABS: Basophils Percent Auto 0.2 % (0.2-1.2); Hematocrit 29.3 % (37.0-47.0); Hemoglobin 8.5 g/dL (12.0-15.0); Immature Granulocyte Absolute 0.17 K/mm3 (0.00-0.031); Immature Granulocyte Percent A 1.4 % (0-0.5); Lymphocytes Absolute Auto 0.55 K/mm3 (0.9-3.2); Lymphocytes Percent Auto 4.6 % (18.3-44.2); Mean Corpuscular Hemoglobin 23.5 pg (26-34); Mean Corpuscular Volume 81.2 fl (80-100); Mean Platelet Volume 10.2 fl (7.4-10.4); Monocytes Absolute Auto 0.7 K/mm3 (0.1-0.6); Monocytes Percent Auto 5.8 % (2.6-8.5); Neutrophils Absolute Auto 10.5 K/mm3 (1.3-6.7); Platelet Count Result 308 k/mm3 (150-375); Red Blood Count 3.61 M/mm3 (4.2-5.4); Red Cell Distribution Width 17.5 % (11.5-14.5)
[2024-10-30 06:25] LABS: Alanine Aminotransferase 26 U/L (6-35); Albumin Level 3.6 g/dL (3.5-5.1); Alkaline Phosphatase 72 U/L (38-126); Anion Gap 12 mmol/L (4-12); Aspartate Amino Transferase 21 U/L (14-36); Bilirubin,Total 0.6 mg/dL (0.2-1.3); Blood Urea Nitrogen 39 mg/dL (7-17); Calcium 9.5 mg/dL (8.4-10.2); Carbon Dioxide 24 mmol/L (22-30); Chloride 101 mmol/L (98-107); Estimated CRCL calculation 31 ml/min; Estimated Glomerular Filt Rate 45; Glucose 142 mg/dL (65-110); Magnesium 1.6 mg/dL (1.6-2.3); Potassium 5.1 mmol/L (3.4-5.0); Sodium 137 mmol/L (137-145)
[2024-10-30 07:02] LABS: Anisocytosis 1+; Ovalocytes 2+; Platelet Estimate Adequate (Adequate); Schistocytes None Seen
[2024-10-30] MEDS: ASPIRIN 81 MG CHEWABLE TABLET PO (08:08)
[2024-10-30] MEDS: CLOPIDOGREL BISULFATE 75 MG TABLET PO (08:08)
[2024-10-30] MEDS: PANTOPRAZOLE 40 MG TABLET PO (08:08)
[2024-10-30] MEDS: AMOXICILLIN/CLAVULANATE K 875-125 MG TAB 1 TABLET PO ×2 (08:08→20:16)
[2024-10-30] MEDS: guaiFENesin 12 HR 600 MG TABCR PO ×2 (08:09→20:15)
[2024-10-30] MEDS: predniSONE 20 MG TABLET 40 MG PO (08:09)
[2024-10-30] MEDS: DOXYCYCLINE HYCLATE 100 MG TABLET PO ×2 (08:09→20:16)
--- NOTE | 2024-10-30 16:56 | PM.IMPN ---
Progress Note: A&P Assessment and Plan (1) Sepsis: Qualifiers: Acute respiratory failure type: with hypoxia Sepsis acute organ dysfunction status: with acute organ dysfunction Sepsis type: sepsis due to unspecified organism Severe sepsis acute organ dysfunction type: acute respiratory failure Severe sepsis shock status: without septic shock Qualified Code(s): A41.9 - Sepsis, unspecified organism; R65.20 - Severe sepsis without septic shock; J96.01 - Acute respiratory failure with hypoxia Code(s): A41.9 - Sepsis, unspecified organism Status: Acute (2) Pneumonia due to influenza A virus: Code(s): J10.00 - Influenza due to other identified influenza virus with unspecified type of pneumonia Status: Acute (3) Acute hypoxic respiratory failure: Code(s): J96.01 - Acute respiratory failure with hypoxia Status: Acute (4) COPD (chronic obstructive pulmonary disease): Qualifiers: COPD type: COPD with acute lower respiratory infection Qualified Code(s): J44.0 - Chronic obstructive pulmonary disease with (acute) lower respiratory infection Code(s): J44.9 - Chronic obstructive pulmonary disease, unspecified Status: Acute (5) Acute kidney injury: Code(s): N17.9 - Acute kidney failure, unspecified Status: Acute (6) Hypotension: Qualifiers: Hypotension type: hypotension due to hypovolemia Qualified Code(s): E86.1 - Hypovolemia Code(s): I95.9 - Hypotension, unspecified Status: Acute (7) GERD (gastroesophageal reflux disease): Qualifiers: Esophagitis presence: esophagitis presence not specified Qualified Code(s): K21.9 - Gastro-esophageal reflux disease without esophagitis Code(s): K21.9 - Gastro-esophageal reflux disease without esophagitis Status: Acute (8) Hypothyroidism: Qualifiers: Hypothyroidism type: unspecified Qualified Code(s): E03.9 - Hypothyroidism, unspecified Code(s): E03.9 - Hypothyroidism, unspecified Status: Acute (9) Diarrhea: Qualifiers: Diarrhea type: unspecified type Qualified Code(s): R19.7 - Diarrhea, unspecified Code(s): R19.7 - Diarrhea, unspecified Status: Acute Plan 84-year-old female with a past medical history of COPD with continuous tobacco use, essential hypertension, GERD, coronary artery disease and hypothyroidism who presented to the ER from home due to shortness of breath. The patient was recently hospitalized at [place] due to pneumonia. She was originally prescribed Levaquin on discharge but did not take this due to abdominal bloating and nausea She was then given a script of cefdinir which was filled today but she did not start taking any of the doses. She decided come to the ER due to the degree of her shortness of breath but she presented to our facility because she did not want to be admitted back at [place]. She reports that she has been having a nonproductive cough for 8-10 days. She denies any fevers or chills. She reports her chest feels tight. She denies any recent known ill contacts and did receive her influenza vaccine this flu season. On arrival to ER she was hypoxic on room air, tachycardia, dyspneic and hypotensive. On 2 L nasal cannula patient oxygen saturations improved to 93-98%. She reports that ever since she was hospitalized at [place] she had been having mushy stools. She had been having between 68 brown mushy stools a day. She denies any paola watery stools. She reports her abdomen feels distended but is nonpainful. Her bowel movements have slowed since she took and anti diarrheal at home. She reports generalized poor appetite. He does have intermittent urinary frequency and has had history of prior bladder suspension surgery and repair of a urethral diverticulum. She denies any dysuria or hematuria. Patient received 30 mL/kilos fluid bolus with normalization of her blood pressure and improvement her tachycardia. Labs demonstrated marked leukocytosis with a white count of 30 and lactic acidosis of 3 . CTA of the chest demonstrating lingular pneumonia with emphysematous changes without evidence of pulmonary embolism. Patient was started on broad-spectrum antibiotic coverage with cefepime, vancomycin and given a dose of Solu-Medrol and a DuoNeb. She was subsequently admitted in this setting. Acute hypoxic respiratory failure due to pneumonia and COPD exacerbation Pneumonia CTA with lingular pneumonia broad-spectrum antibiotics MRSA nares negative on doxy and cefepime. Will transition to oral antibiotics today COPD exacerbation add Mucinex on Solu-Medrol lower the dose. Change to prednisone today Sepsis Influenza a declines Tamiflu treatment Leukocytosis likely due to steroid Diarrhea multiple loose stools a day C diff came back negative. Imodium p.r.n. 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 It has now resolved. Troponin came back negative. patient was breathing better better , She has been off oxygen, stats last night patient was anxious, but feels little better this am, will monitor. Code status full code Subjective Date/time seen: 10/30/24 16:56 Interval history: Overnight she received IV doxycycline that caused her to get burning sensation in her left arm. It has now resolved. Troponin came back negative. patient was breathing better better , She has been off oxygen, stats last night patient was anxious, but feels little better this am, will monitor. Review of Systems Review of Systems: All systems reviewed & are unremarkable except as noted in HPI and below Objective Data Vital Signs Vital Signs: Vital Signs - 24 hr 10/29/24 19:51 10/29/24 19:54 10/29/24 19:55 Temperature Pulse Rate 105 H 109 H Respiratory Rate 24 H 24 H Blood Pressure Pulse Oximetry 97 Oxygen Delivery Room Air 10/29/24 20:00 10/29/24 21:57 10/30/24 02:52 Temperature 36.4 C Pulse Rate 97 83 Respiratory Rate 22 H 20 Blood Pressure 138/80 Pulse Oximetry 95 Oxygen Delivery Room Air 10/30/24 02:58 10/30/24 05:31 10/30/24 07:38 Temperature 36.1 C L Pulse Rate 90 93 Respiratory Rate 20 18 Blood Pressure 150/62 H Pulse Oximetry 92 98 Oxygen Delivery Room Air 10/30/24 07:38 10/30/24 07:49 10/30/24 13:39 Temperature Pulse Rate 90 86 96 Respiratory Rate 20 20 20 Blood Pressure Pulse Oximetry Oxygen Delivery 10/30/24 13:45 10/30/24 14:00 Temperature Pulse Rate 91 95 Respiratory Rate 22 H 18 Blood Pressure 129/61 Pulse Oximetry 96 Oxygen Delivery Intake/Output Intake/Output: Intake & Output 10/27/24 10/28/24 10/29/24 10/30/24 23:59 23:59 23:59 23:59 Intake Total 1535 1881.7 1160 730 Output Total 1800 1999 2901 1950 Balance -265 -118.3 -1741 -1220 Meds/Results Medications: Active Medications Generic Name Dose Route Start Last Admin Trade Name Freq PRN Reason Stop Dose Admin Acetaminophen 650 mg 10/26/24 20:00 10/28/24 09:44 Acetaminophen 325 Mg Tablet PO 650 mg Q4H PRN Administration Mild Pain (1-3) or Fever Amoxicillin/Clavulanate Potassium 1 tablet 10/29/24 18:00 10/30/24 08:08 Amoxicillin/Clavulanate K 875-125 Mg Tab PO 11/03/24 09:01 1 tablet Q12HR DEJON Administration Aspirin 81 mg 10/27/24 09:00 10/30/24 08:08 Aspirin 81 Mg Chewable Tablet PO 81 mg DAILY DEJON Administration Atorvastatin Calcium 40 mg 10/27/24 18:00 10/29/24 17:27 Atorvastatin 40 Mg Tablet PO 40 mg QPM DEJON Administration Benzonatate 100 mg 10/27/24 00:12 Benzonatate 100 Mg Capsule PO TID PRN cough Clopidogrel Bisulfate 75 mg 10/27/24 09:00 10/30/24 08:08 Clopidogrel Bisulfate 75 Mg Tablet PO 75 mg DAILY DEJON Administration Doxycycline Hyclate 100 mg 10/29/24 09:50 10/30/24 08:09 Doxycycline Hyclate 100 Mg Tablet PO 11/02/24 21:01 100 mg Q12HR DEJON Administration Guaifenesin 600 mg 10/28/24 12:20 10/30/24 08:09 Guaifenesin 12 Hr 600 Mg Tabcr PO 600 mg Q12HR DEJON Administration Levalbuterol HCl 1.25 mg 10/30/24 02:00 10/30/24 13:39 Levalbuterol Neb 1.25 Mg/3 Ml INHALATION 1.25 mg Q6HRT DEJON Administration Levothyroxine Sodium 125 mcg 10/27/24 06:30 10/30/24 05:30 Levothyroxine Sodium 125 Mcg Tablet PO 125 mcg DAILY@0630 DEJON Administration Loperamide HCl 2 mg 10/27/24 06:51 Loperamide Hcl 2 Mg Capsule PO PRN PRN Diarrhea Meclizine HCl 25 mg 10/27/24 00:12 Meclizine Hcl 25 Mg Tablet PO QID PRN dizziness Ondansetron HCl 4 mg 10/26/24 20:00 Ondansetron Inj 4 Mg/2 Ml Vial IV PUSH Q4H PRN Nausea Pantoprazole Sodium 40 mg 10/27/24 09:00 10/30/24 08:08 Pantoprazole 40 Mg Tablet PO 40 mg DAILY DEJON Administration Prednisone 40 mg 10/30/24 08:00 10/30/24 08:09 Prednisone 20 Mg Tablet PO 40 mg DAILY@0800 DEJON Administration Sodium Chloride 10 ml 10/27/24 22:00 10/30/24 14:26 Saline Lock Flush IV PUSH 10 ml Q8HR DEJON Administration Sodium Chloride 10 ml 10/27/24 15:26 Saline Lock Flush IV PUSH PRN PRN Flush Sodium Chloride 20 ml 10/27/24 15:26 Saline Lock Flush IV PUSH PRN PRN after blood draws Radiology Results: ITS Impressions Chest X-Ray 10/26/24 17:02 IMPRESSION: 1. Airspace opacities at left lung base, consistent with atelectasis versus pneumonia. Chest CTA 10/26/24 18:26 IMPRESSION: 1. No pulmonary embolus. Sensitivity is mildly decreased by motion artifact. 2. Mild pneumonia in lingula. 3. Mild emphysema. 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 Labs Labs: Laboratory Results - last 24 hr 10/30/24 05:15 WBC 12.0 H RBC 3.61 L Hgb 8.5 L Hct 29.3 L MCV 81.2 MCH 23.5 L MCHC 29.0 L RDW 17.5 H Plt Count 308 MPV 10.2 Immature Gran % (Auto) 1.4 H Neut % (Auto) 88.0 H Lymph % (Auto) 4.6 L [place] % (Auto) 5.8 Eos % (Auto) 0.0 Baso % (Auto) 0.2 Lymph # (Auto) 0.55 L [place] # (Auto) 0.7 H Eos # (Auto) 0.0 Baso # (Auto) 0.0 Abs Immat Gran (auto) 0.17 H Absolute Neuts (auto) 10.5 H Absolute Nucleated RBC 0.000 Band Neutrophils % Not Reportable Nucleated RBC % 0.0 Platelet Estimate Adequate Anisocytosis 1+ Ovalocytes 2+ Schistocytes None seen Sodium 137 Potassium 5.1 H Chloride 101 Carbon Dioxide 24 Anion Gap 12 BUN 39 H Creatinine 1.14 H Estim Creat Clear Calc 31 Estimated GFR 45 L Glucose 142 H Calcium 9.5 Magnesium 1.6 Total Bilirubin 0.6 AST 21 ALT 26 Alkaline Phosphatase 72 Total Protein 6.0 L Albumin 3.6 Quality VTE Prophylaxis VTE prophylaxis: mechanical ordered (SCDs)
[2024-10-30] MEDS: ATORVASTATIN 40 MG TABLET PO (17:32)
--- NOTE | 2024-10-30 18:28 | PC.NURSE ---
On 10/30/24, the student, Penelope Barnard, provided care and completed [facility] documentation on this patient. I have reviewed the student's documentation and agree with the findings.
[2024-10-31] VITALS (13 sets, daily range): BP systolic 129–147; BP diastolic 56–64; PULSE 72–102; RESP 16–32; TEMP 36.6–37.2; O2SAT 91–97
[2024-10-31] MEDS: LEVALBUTEROL NEB 1.25 MG/3 ML INHALATION ×2 (02:45→07:55)
[2024-10-31] MEDS: DOXYCYCLINE HYCLATE 100 MG TABLET PO ×2 (08:52→21:22)
[2024-10-31] MEDS: predniSONE 20 MG TABLET 40 MG PO (08:52)
[2024-10-31] MEDS: CLOPIDOGREL BISULFATE 75 MG TABLET PO (08:52)
[2024-10-31] MEDS: AMOXICILLIN/CLAVULANATE K 875-125 MG TAB 1 TABLET PO ×2 (08:52→21:22)
[2024-10-31] MEDS: ASPIRIN 81 MG CHEWABLE TABLET PO (08:52)
[2024-10-31] MEDS: guaiFENesin 12 HR 600 MG TABCR PO ×2 (08:52→21:22)
[2024-10-31] MEDS: PANTOPRAZOLE 40 MG TABLET PO (08:52)
--- NOTE | 2024-10-31 10:54 | PCNWS ---
Weekly nutritional screen. Patient is tolerating current Heart healthy diet with adequate intake, 100% all meals. No weight loss reported. No nutritional needs at this time.
--- NOTE | 2024-10-31 12:55 | PM.IMPN ---
Progress Note: A&P Assessment and Plan (1) Sepsis: Qualifiers: Acute respiratory failure type: with hypoxia Sepsis acute organ dysfunction status: with acute organ dysfunction Sepsis type: sepsis due to unspecified organism Severe sepsis acute organ dysfunction type: acute respiratory failure Severe sepsis shock status: without septic shock Qualified Code(s): A41.9 - Sepsis, unspecified organism; R65.20 - Severe sepsis without septic shock; J96.01 - Acute respiratory failure with hypoxia Code(s): A41.9 - Sepsis, unspecified organism Status: Acute (2) Pneumonia due to influenza A virus: Code(s): J10.00 - Influenza due to other identified influenza virus with unspecified type of pneumonia Status: Acute (3) Acute hypoxic respiratory failure: Code(s): J96.01 - Acute respiratory failure with hypoxia Status: Acute (4) COPD (chronic obstructive pulmonary disease): Qualifiers: COPD type: COPD with acute lower respiratory infection Qualified Code(s): J44.0 - Chronic obstructive pulmonary disease with (acute) lower respiratory infection Code(s): J44.9 - Chronic obstructive pulmonary disease, unspecified Status: Acute (5) Acute kidney injury: Code(s): N17.9 - Acute kidney failure, unspecified Status: Acute (6) Hypotension: Qualifiers: Hypotension type: hypotension due to hypovolemia Qualified Code(s): E86.1 - Hypovolemia Code(s): I95.9 - Hypotension, unspecified Status: Acute (7) GERD (gastroesophageal reflux disease): Qualifiers: Esophagitis presence: esophagitis presence not specified Qualified Code(s): K21.9 - Gastro-esophageal reflux disease without esophagitis Code(s): K21.9 - Gastro-esophageal reflux disease without esophagitis Status: Acute (8) Hypothyroidism: Qualifiers: Hypothyroidism type: unspecified Qualified Code(s): E03.9 - Hypothyroidism, unspecified Code(s): E03.9 - Hypothyroidism, unspecified Status: Acute (9) Diarrhea: Qualifiers: Diarrhea type: unspecified type Qualified Code(s): R19.7 - Diarrhea, unspecified Code(s): R19.7 - Diarrhea, unspecified Status: Acute Plan 84-year-old female with a past medical history of COPD with continuous tobacco use, essential hypertension, GERD, coronary artery disease and hypothyroidism who presented to the ER from home due to shortness of breath. The patient was recently hospitalized at [facility] due to pneumonia. She was originally prescribed Levaquin on discharge but did not take this due to abdominal bloating and nausea She was then given a script of cefdinir which was filled today but she did not start taking any of the doses. She decided come to the ER due to the degree of her shortness of breath but she presented to our facility because she did not want to be admitted back at [facility]. She reports that she has been having a nonproductive cough for 8-10 days. She denies any fevers or chills. She reports her chest feels tight. She denies any recent known ill contacts and did receive her influenza vaccine this flu season. On arrival to ER she was hypoxic on room air, tachycardia, dyspneic and hypotensive. On 2 L nasal cannula patient oxygen saturations improved to 93-98%. She reports that ever since she was hospitalized at [facility] she had been having mushy stools. She had been having between 68 brown mushy stools a day. She denies any paola watery stools. She reports her abdomen feels distended but is nonpainful. Her bowel movements have slowed since she took and anti diarrheal at home. She reports generalized poor appetite. He does have intermittent urinary frequency and has had history of prior bladder suspension surgery and repair of a urethral diverticulum. She denies any dysuria or hematuria. Patient received 30 mL/kilos fluid bolus with normalization of her blood pressure and improvement her tachycardia. Labs demonstrated marked leukocytosis with a white count of 30 and lactic acidosis of 3 . CTA of the chest demonstrating lingular pneumonia with emphysematous changes without evidence of pulmonary embolism. Patient was started on broad-spectrum antibiotic coverage with cefepime, vancomycin and given a dose of Solu-Medrol and a DuoNeb. She was subsequently admitted in this setting. Acute hypoxic respiratory failure due to pneumonia and COPD exacerbation Pneumonia CTA with lingular pneumonia broad-spectrum antibiotics MRSA nares negative on doxy and cefepime. Will transition to oral antibiotics today COPD exacerbation add Mucinex on Solu-Medrol lower the dose. Change to prednisone today Sepsis Influenza a declines Tamiflu treatment Leukocytosis likely due to steroid Diarrhea multiple loose stools a day C diff came back negative. Imodium p.r.n. 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 It has now resolved. Troponin came back negative. patient was breathing better yesterday, this morning has rapid breath and her lungs sound harsh, She has been off oxygen however her O2 saturation is 91% on RA, will give duo neb and do CXR, will monitor and further recommendation to follow. Code status full code Subjective Date/time seen: 10/31/24 12:55 Interval history: Overnight she received IV doxycycline that caused her to get burning sensation in her left arm. It has now resolved. Troponin came back negative. patient was breathing better yesterday, this morning has rapid breath and her lungs sound harsh, She has been off oxygen however her O2 saturation is 91% on RA, will give duo neb and do CXR, will monitor and further recommendation to follow. Review of Systems Review of Systems: 12 systems were reviewed with pertinent positives and negatives per HPI. Except as documented in the HPI, all other systems were reviewed and are negative. The patient reports slight decreased sensation in her left hand ever since her stroke last year. However she has normal station mechanic helper strength bilaterally All systems reviewed & are unremarkable except as noted in HPI and below Exam Narrative: Patient is comfortable, NAD HEENT: eyes are clear and none icteric LUNGS: Bilateral fair entry with harsh breath sounds HEART: RR S1S2 ABD: BS+, Soft and nontender Lower extremities: no edema SKIN: nonjaundiced Neuro: grossly intact. Objective Data Vital Signs Vital Signs: Vital Signs - 24 hr 10/30/24 13:39 10/30/24 13:45 10/30/24 14:00 Temperature Pulse Rate 96 91 95 Respiratory Rate 20 22 H 18 Blood Pressure 129/61 Pulse Oximetry 96 Oxygen Delivery Fraction of Inspired Oxygen 10/30/24 19:31 10/30/24 19:37 10/30/24 19:37 Temperature 36.2 C L Pulse Rate 106 H 111 H 111 H Respiratory Rate 22 H 24 H Blood Pressure 154/68 H Pulse Oximetry 92 92 Oxygen Delivery Room Air Fraction of Inspired Oxygen 10/30/24 19:48 10/30/24 20:00 10/31/24 02:45 Temperature Pulse Rate 105 H 100 Respiratory Rate 20 24 H Blood Pressure Pulse Oximetry Oxygen Delivery Room Air Fraction of Inspired Oxygen 10/31/24 02:55 10/31/24 05:18 10/31/24 07:55 Temperature 37.2 C Pulse Rate 102 H 94 Respiratory Rate 20 16 Blood Pressure 147/64 H Pulse Oximetry 93 91 Oxygen Delivery Room Air Fraction of Inspired Oxygen 10/31/24 07:55 10/31/24 08:00 10/31/24 08:02 Temperature Pulse Rate 86 88 88 Respiratory Rate 20 20 20 Blood Pressure Pulse Oximetry 91 Oxygen Delivery Room Air Fraction of Inspired Oxygen 28 Intake/Output Intake/Output: Intake & Output 10/28/24 10/29/24 10/30/24 10/31/24 23:59 23:59 23:59 23:59 Intake Total 1881.7 1160 2310 1240 Output Total 1999 2901 3800 Balance -118.3 -1741 -1490 1240 Meds/Results Medications: Active Medications Generic Name Dose Route Start Last Admin Trade Name Freq PRN Reason Stop Dose Admin Acetaminophen 650 mg 10/26/24 20:00 10/28/24 09:44 Acetaminophen 325 Mg Tablet PO 650 mg Q4H PRN Administration Mild Pain (1-3) or Fever Albuterol/Ipratropium 3 ml 10/31/24 14:00 Ipratropium 0.5 Mg/Albuterol Sulfate 2.5 Mg Ampul.Neb 3 Ml INHALATION Q6HRT [facility] Amoxicillin/Clavulanate Potassium 1 tablet 10/29/24 18:00 10/31/24 08:52 Amoxicillin/Clavulanate K 875-125 Mg Tab PO 11/03/24 09:01 1 tablet Q12HR DEJON Administration Aspirin 81 mg 10/27/24 09:00 10/31/24 08:52 Aspirin 81 Mg Chewable Tablet PO 81 mg DAILY DEJON Administration Atorvastatin Calcium 40 mg 10/27/24 18:00 10/30/24 17:32 Atorvastatin 40 Mg Tablet PO 40 mg QPM DEJON Administration Benzonatate 100 mg 10/27/24 00:12 Benzonatate 100 Mg Capsule PO TID PRN cough Clopidogrel Bisulfate 75 mg 10/27/24 09:00 10/31/24 08:52 Clopidogrel Bisulfate 75 Mg Tablet PO 75 mg DAILY DEJON Administration Doxycycline Hyclate 100 mg 10/29/24 09:50 10/31/24 08:52 Doxycycline Hyclate 100 Mg Tablet PO 11/02/24 21:01 100 mg Q12HR DEJON Administration Guaifenesin 600 mg 10/28/24 12:20 10/31/24 08:52 Guaifenesin 12 Hr 600 Mg Tabcr PO 600 mg Q12HR DEJON Administration Levalbuterol HCl 1.25 mg 10/30/24 02:00 10/31/24 07:55 Levalbuterol Neb 1.25 Mg/3 Ml INHALATION 1.25 mg Q6HRT DEJON Administration Levothyroxine Sodium 125 mcg 10/27/24 06:30 10/31/24 08:51 Levothyroxine Sodium 125 Mcg Tablet PO Not Given DAILY@0630 [facility] Loperamide HCl 2 mg 10/27/24 06:51 Loperamide Hcl 2 Mg Capsule PO PRN PRN Diarrhea Meclizine HCl 25 mg 10/27/24 00:12 Meclizine Hcl 25 Mg Tablet PO QID PRN dizziness Ondansetron HCl 4 mg 10/26/24 20:00 Ondansetron Inj 4 Mg/2 Ml Vial IV PUSH Q4H PRN Nausea Pantoprazole Sodium 40 mg 10/27/24 09:00 10/31/24 08:52 Pantoprazole 40 Mg Tablet PO 40 mg DAILY [facility] Administration Prednisone 40 mg 10/30/24 08:00 10/31/24 08:52 Prednisone 20 Mg Tablet PO 40 mg DAILY@0800 [facility] Administration Sodium Chloride 10 ml 10/27/24 22:00 10/31/24 08:51 Saline Lock Flush IV PUSH Not Given Q8HR [facility] Sodium Chloride 10 ml 10/27/24 15:26 Saline Lock Flush IV PUSH PRN PRN Flush Sodium Chloride 20 ml 10/27/24 15:26 Saline Lock Flush IV PUSH PRN PRN after blood draws Radiology Results: ITS Impressions Chest X-Ray 10/26/24 17:02 IMPRESSION: 1. Airspace opacities at left lung base, consistent with atelectasis versus pneumonia. Chest CTA 10/26/24 18:26 IMPRESSION: 1. No pulmonary embolus. Sensitivity is mildly decreased by motion artifact. 2. Mild pneumonia in lingula. 3. Mild emphysema. 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 Quality VTE Prophylaxis VTE prophylaxis: mechanical ordered (SCDs)
[2024-10-31] MEDS: IPRATROPIUM 0.5 MG/ALBUTEROL SULFATE 2.5 MG AMPUL.NEB 3 ML INHALATION ×3 (13:29→20:50)
[2024-10-31 13:48] LABS: Pneumococcal Antigen Urine NOT DETECTED
[2024-10-31] MEDS: SALINE LOCK FLUSH 10 ML IV PUSH ×2 (15:10→21:22)
[2024-10-31] MEDS: ATORVASTATIN 40 MG TABLET PO (18:24)
[2024-11-01] VITALS (14 sets, daily range): BP systolic 150–155; BP diastolic 59–66; PULSE 87–99; RESP 16–23; TEMP 36.2–36.8; O2SAT 92–95
[2024-11-01] MEDS: IPRATROPIUM 0.5 MG/ALBUTEROL SULFATE 2.5 MG AMPUL.NEB 3 ML INHALATION ×4 (01:56→21:24)
[2024-11-01] MEDS: LEVOTHYROXINE SODIUM 125 MCG TABLET PO (06:11)
[2024-11-01] MEDS: SALINE LOCK FLUSH 10 ML IV PUSH ×3 (06:14→20:47)
[2024-11-01 06:55] LABS: Hematocrit 30.2 % (37.0-47.0); Hemoglobin 8.7 g/dL (12.0-15.0); Mean Corpuscular HGB Conc 28.8 g/dl (32-36); Mean Corpuscular Hemoglobin 23.3 pg (26-34); Mean Corpuscular Volume 80.7 fl (80-100); Platelet Count Result 350 k/mm3 (150-375); Red Blood Count 3.74 M/mm3 (4.2-5.4); Red Cell Distribution Width 17.8 % (11.5-14.5); White Blood Count 13.9 K/mm3 (4.5-10.0)
[2024-11-01 07:09] LABS: Anion Gap 12 mmol/L (4-12); Blood Urea Nitrogen 41 mg/dL (7-17); Calcium 9.4 mg/dL (8.4-10.2); Carbon Dioxide 23 mmol/L (22-30); Chloride 101 mmol/L (98-107); Estimated CRCL calculation 33 ml/min; Estimated Glomerular Filt Rate 48; Glucose 129 mg/dL (65-110); Magnesium 1.5 mg/dL (1.6-2.3); Potassium 4.7 mmol/L (3.4-5.0); Sodium 136 mmol/L (137-145)
[2024-11-01] MEDS: PANTOPRAZOLE 40 MG TABLET PO (10:01)
[2024-11-01] MEDS: AMOXICILLIN/CLAVULANATE K 875-125 MG TAB 1 TABLET PO ×2 (10:01→20:46)
[2024-11-01] MEDS: DOXYCYCLINE HYCLATE 100 MG TABLET PO ×2 (10:01→20:46)
[2024-11-01] MEDS: guaiFENesin 12 HR 600 MG TABCR PO ×2 (10:01→20:46)
[2024-11-01] MEDS: predniSONE 20 MG TABLET 40 MG PO (10:01)
[2024-11-01] MEDS: CLOPIDOGREL BISULFATE 75 MG TABLET PO (10:01)
[2024-11-01] MEDS: ASPIRIN 81 MG CHEWABLE TABLET PO (10:01)
[2024-11-01] MEDS: MAGNESIUM SULF 2 GM/WATER 50ML 2 GM/50 ML BAG IVPB (10:07)
[2024-11-01] MEDS: ALPRAZolam (*CRX) 0.25 MG TABLET PO ×2 (10:11→17:39)
[2024-11-01] MEDS: SODIUM CHLORIDE 0.9% IV 100 ML 50 ML (10:19)
[2024-11-01] MEDS: MAGNESIUM OXIDE 400 MG TABLET 800 MG PO (10:54)
--- NOTE | 2024-11-01 15:16 | PM.IMPN ---
Progress Note: A&P Assessment and Plan (1) Sepsis: Qualifiers: Acute respiratory failure type: with hypoxia Sepsis acute organ dysfunction status: with acute organ dysfunction Sepsis type: sepsis due to unspecified organism Severe sepsis acute organ dysfunction type: acute respiratory failure Severe sepsis shock status: without septic shock Qualified Code(s): A41.9 - Sepsis, unspecified organism; R65.20 - Severe sepsis without septic shock; J96.01 - Acute respiratory failure with hypoxia Code(s): A41.9 - Sepsis, unspecified organism Status: Acute (2) Pneumonia due to influenza A virus: Code(s): J10.00 - Influenza due to other identified influenza virus with unspecified type of pneumonia Status: Acute (3) Acute hypoxic respiratory failure: Code(s): J96.01 - Acute respiratory failure with hypoxia Status: Acute (4) COPD (chronic obstructive pulmonary disease): Qualifiers: COPD type: COPD with acute lower respiratory infection Qualified Code(s): J44.0 - Chronic obstructive pulmonary disease with (acute) lower respiratory infection Code(s): J44.9 - Chronic obstructive pulmonary disease, unspecified Status: Acute (5) Acute kidney injury: Code(s): N17.9 - Acute kidney failure, unspecified Status: Acute (6) Hypotension: Qualifiers: Hypotension type: hypotension due to hypovolemia Qualified Code(s): E86.1 - Hypovolemia Code(s): I95.9 - Hypotension, unspecified Status: Acute (7) GERD (gastroesophageal reflux disease): Qualifiers: Esophagitis presence: esophagitis presence not specified Qualified Code(s): K21.9 - Gastro-esophageal reflux disease without esophagitis Code(s): K21.9 - Gastro-esophageal reflux disease without esophagitis Status: Acute (8) Hypothyroidism: Qualifiers: Hypothyroidism type: unspecified Qualified Code(s): E03.9 - Hypothyroidism, unspecified Code(s): E03.9 - Hypothyroidism, unspecified Status: Acute (9) Diarrhea: Qualifiers: Diarrhea type: unspecified type Qualified Code(s): R19.7 - Diarrhea, unspecified Code(s): R19.7 - Diarrhea, unspecified Status: Acute Plan 84-year-old female with a past medical history of COPD with continuous tobacco use, essential hypertension, GERD, coronary artery disease and hypothyroidism who presented to the ER from home due to shortness of breath. The patient was recently hospitalized at [place] due to pneumonia. She was originally prescribed Levaquin on discharge but did not take this due to abdominal bloating and nausea She was then given a script of cefdinir which was filled today but she did not start taking any of the doses. She decided come to the ER due to the degree of her shortness of breath but she presented to our facility because she did not want to be admitted back at [place]. She reports that she has been having a nonproductive cough for 8-10 days. She denies any fevers or chills. She reports her chest feels tight. She denies any recent known ill contacts and did receive her influenza vaccine this flu season. On arrival to ER she was hypoxic on room air, tachycardia, dyspneic and hypotensive. On 2 L nasal cannula patient oxygen saturations improved to 93-98%. She reports that ever since she was hospitalized at [place] she had been having mushy stools. She had been having between 68 brown mushy stools a day. She denies any paola watery stools. She reports her abdomen feels distended but is nonpainful. Her bowel movements have slowed since she took and anti diarrheal at home. She reports generalized poor appetite. He does have intermittent urinary frequency and has had history of prior bladder suspension surgery and repair of a urethral diverticulum. She denies any dysuria or hematuria. Patient received 30 mL/kilos fluid bolus with normalization of her blood pressure and improvement her tachycardia. Labs demonstrated marked leukocytosis with a white count of 30 and lactic acidosis of 3 . CTA of the chest demonstrating lingular pneumonia with emphysematous changes without evidence of pulmonary embolism. Patient was started on broad-spectrum antibiotic coverage with cefepime, vancomycin and given a dose of Solu-Medrol and a DuoNeb. She was subsequently admitted in this setting. Acute hypoxic respiratory failure due to pneumonia and COPD exacerbation Pneumonia CTA with lingular pneumonia broad-spectrum antibiotics MRSA nares negative on doxy and cefepime. Will transition to oral antibiotics today COPD exacerbation add Mucinex on Solu-Medrol lower the dose. Change to prednisone today Sepsis Influenza a declines Tamiflu treatment Leukocytosis likely due to steroid Diarrhea multiple loose stools a day C diff came back negative. Imodium p.r.n. 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 It has now resolved. Troponin came back negative. patient was breathing better yesterday, this morning has rapid breath and her lungs sound harsh, She has been off oxygen however her O2 saturation is 91% on RA, will gave duo neb which did help, and do CXR did not show any significant acute cardiopulmonary disease, however patient appears quite anxious which causing difficulty with breathing will give low-dose of Xanax and start the patient on Celexa, will monitor and further recommendation to follow. Code status full code Subjective Date/time seen: 11/01/24 15:16 Interval history: Overnight she received IV doxycycline that caused her to get burning sensation in her left arm. It has now resolved. Troponin came back negative. patient was breathing better yesterday, this morning has rapid breath and her lungs sound harsh, She has been off oxygen however her O2 saturation is 91% on RA, will gave duo neb which did help, and do CXR did not show any significant acute cardiopulmonary disease, however patient appears quite anxious which causing difficulty with breathing will give low-dose of Xanax and start the patient on Celexa, will monitor and further recommendation to follow. Review of Systems Review of Systems: 12 systems were reviewed with pertinent positives and negatives per HPI. Except as documented in the HPI, all other systems were reviewed and are negative. The patient reports slight decreased sensation in her left hand ever since her stroke last year. However she has normal target trimmer strength bilaterally All systems reviewed & are unremarkable except as noted in HPI and below Exam Narrative: Patient is comfortable, NAD HEENT: eyes are clear and none icteric LUNGS: Bilateral fair entry with harsh breath sounds HEART: RR S1S2 ABD: BS+, Soft and nontender Lower extremities: no edema SKIN: nonjaundiced Neuro: grossly intact. Objective Data Vital Signs Vital Signs: Vital Signs - 24 hr 10/31/24 16:20 10/31/24 16:28 10/31/24 20:00 Temperature Pulse Rate 92 86 Respiratory Rate 20 20 Blood Pressure Pulse Oximetry Oxygen Delivery Room Air Oxygen Flow Rate Fraction of Inspired Oxygen 10/31/24 20:50 10/31/24 20:50 10/31/24 20:50 Temperature Pulse Rate 98 98 72 Respiratory Rate 32 H 32 H 16 Blood Pressure Pulse Oximetry 92 Oxygen Delivery Room Air Oxygen Flow Rate Fraction of Inspired Oxygen 21 10/31/24 21:10 11/01/24 01:56 11/01/24 02:05 Temperature 36.7 C Pulse Rate 98 92 89 Respiratory Rate 20 23 H 20 Blood Pressure 145/56 H Pulse Oximetry 94 Oxygen Delivery Oxygen Flow Rate Fraction of Inspired Oxygen 11/01/24 05:42 11/01/24 09:36 11/01/24 09:47 Temperature 36.2 C L Pulse Rate 97 98 88 Respiratory Rate 16 20 20 Blood Pressure 153/61 H Pulse Oximetry 95 Oxygen Delivery Oxygen Flow Rate Fraction of Inspired Oxygen 11/01/24 14:00 11/01/24 14:00 11/01/24 14:11 Temperature Pulse Rate 99 88 Respiratory Rate 22 H 22 H Blood Pressure Pulse Oximetry 93 Oxygen Delivery Nasal Cannula Oxygen Flow Rate 2 Fraction of Inspired Oxygen Intake/Output Intake/Output: Intake & Output 10/29/24 10/30/24 10/31/24 11/01/24 23:59 23:59 23:59 23:59 Intake Total 1160 2310 2220 808.8 Output Total 2901 3800 Balance -1741 -1490 2220 808.8 Meds/Results Medications: Active Medications Generic Name Dose Route Start Last Admin Trade Name Freq PRN Reason Stop Dose Admin Acetaminophen 650 mg 10/26/24 20:00 10/28/24 09:44 Acetaminophen 325 Mg Tablet PO 650 mg Q4H PRN Administration Mild Pain (1-3) or Fever Albuterol/Ipratropium 3 ml 10/31/24 14:00 11/01/24 13:58 Ipratropium 0.5 Mg/Albuterol Sulfate 2.5 Mg Ampul.Neb 3 Ml INHALATION 3 ml Q6HRT DEJON Administration Alprazolam 0.25 mg 11/01/24 09:59 11/01/24 10:11 Alprazolam (*Crx) 0.25 Mg Tablet PO 0.25 mg TID PRN Administration Anxiety Amoxicillin/Clavulanate Potassium 1 tablet 10/29/24 18:00 11/01/24 10:01 Amoxicillin/Clavulanate K 875-125 Mg Tab PO 11/03/24 09:01 1 tablet Q12HR DEJON Administration Aspirin 81 mg 10/27/24 09:00 11/01/24 10:01 Aspirin 81 Mg Chewable Tablet PO 81 mg DAILY DEJON Administration Atorvastatin Calcium 40 mg 10/27/24 18:00 10/31/24 18:24 Atorvastatin 40 Mg Tablet PO 40 mg QPM DEJON Administration Benzonatate 100 mg 10/27/24 00:12 Benzonatate 100 Mg Capsule PO TID PRN cough Citalopram Hydrobromide 5 mg 11/02/24 09:00 Citalopram Hydrobromide 5 Mg Tablet PO QAM DEJON Clopidogrel Bisulfate 75 mg 10/27/24 09:00 11/01/24 10:01 Clopidogrel Bisulfate 75 Mg Tablet PO 75 mg DAILY DEJON Administration Doxycycline Hyclate 100 mg 10/29/24 09:50 11/01/24 10:01 Doxycycline Hyclate 100 Mg Tablet PO 11/02/24 21:01 100 mg Q12HR DEJON Administration Guaifenesin 600 mg 10/28/24 12:20 11/01/24 10:01 Guaifenesin 12 Hr 600 Mg Tabcr PO 600 mg Q12HR DEJON Administration Levothyroxine Sodium 125 mcg 10/27/24 06:30 11/01/24 06:11 Levothyroxine Sodium 125 Mcg Tablet PO 125 mcg DAILY@0630 [facility] Administration Loperamide HCl 2 mg 10/27/24 06:51 Loperamide Hcl 2 Mg Capsule PO PRN PRN Diarrhea Meclizine HCl 25 mg 10/27/24 00:12 Meclizine Hcl 25 Mg Tablet PO QID PRN dizziness Pantoprazole Sodium 40 mg 10/27/24 09:00 11/01/24 10:01 Pantoprazole 40 Mg Tablet PO 40 mg DAILY DEJON Administration Prednisone 40 mg 10/30/24 08:00 11/01/24 10:01 Prednisone 20 Mg Tablet PO 40 mg DAILY@0800 [facility] Administration Sodium Chloride 10 ml 10/27/24 22:00 11/01/24 06:14 Saline Lock Flush IV PUSH 10 ml Q8HR DEJON Administration Sodium Chloride 10 ml 10/27/24 15:26 Saline Lock Flush IV PUSH PRN PRN Flush Sodium Chloride 20 ml 10/27/24 15:26 Saline Lock Flush IV PUSH PRN PRN after blood draws Radiology Results: ITS Impressions Chest CTA 10/26/24 18:26 IMPRESSION: 1. No pulmonary embolus. Sensitivity is mildly decreased by motion artifact. 2. Mild pneumonia in lingula. 3. Mild emphysema. 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 Chest X-Ray 10/31/24 13:13 IMPRESSION: 1. Airspace opacities in the lower lung zones, consistent with atelectasis versus pneumonia. Labs Labs: Laboratory Results - last 24 hr 11/01/24 06:40 WBC 13.9 H RBC 3.74 L Hgb 8.7 L Hct 30.2 L MCV 80.7 MCH 23.3 L MCHC 28.8 L RDW 17.8 H Plt Count 350 MPV 10.0 Sodium 136 L Potassium 4.7 Chloride 101 Carbon Dioxide 23 Anion Gap 12 BUN 41 H Creatinine 1.08 H Estim Creat Clear Calc 33 Estimated GFR 48 L Glucose 129 H Calcium 9.4 Magnesium 1.5 L Quality VTE Prophylaxis VTE prophylaxis: mechanical ordered (SCDs)
[2024-11-01] MEDS: ATORVASTATIN 40 MG TABLET PO (17:39)
[2024-11-02] VITALS (16 sets, daily range): BP systolic 137–170; BP diastolic 50–70; PULSE 85–96; RESP 20–24; TEMP 36.4–36.8; O2SAT 83–96
[2024-11-02] MEDS: IPRATROPIUM 0.5 MG/ALBUTEROL SULFATE 2.5 MG AMPUL.NEB 3 ML INHALATION ×4 (02:00→19:56)
[2024-11-02] MEDS: SALINE LOCK FLUSH 10 ML IV PUSH ×3 (05:59→21:19)
[2024-11-02] MEDS: LEVOTHYROXINE SODIUM 125 MCG TABLET PO (05:59)
[2024-11-02 06:27] LABS: Hematocrit 31.1 % (37.0-47.0); Mean Corpuscular HGB Conc 28.9 g/dl (32-36); Mean Corpuscular Hemoglobin 23.4 pg (26-34); Platelet Count Result 337 k/mm3 (150-375); Red Blood Count 3.84 M/mm3 (4.2-5.4); Red Cell Distribution Width 17.7 % (11.5-14.5); White Blood Count 13.1 K/mm3 (4.5-10.0)
[2024-11-02 06:38] LABS: Anion Gap 7 mmol/L (4-12); Blood Urea Nitrogen 39 mg/dL (7-17); Calcium 9.5 mg/dL (8.4-10.2); Carbon Dioxide 29 mmol/L (22-30); Chloride 101 mmol/L (98-107); Estimated CRCL calculation 33 ml/min; Estimated Glomerular Filt Rate 48; Glucose 97 mg/dL (65-110); Magnesium 1.8 mg/dL (1.6-2.3); Potassium 4.7 mmol/L (3.4-5.0); Sodium 137 mmol/L (137-145)
[2024-11-02] MEDS: PANTOPRAZOLE 40 MG TABLET PO (08:57)
[2024-11-02] MEDS: guaiFENesin 12 HR 600 MG TABCR PO ×2 (08:57→21:19)
[2024-11-02] MEDS: predniSONE 20 MG TABLET 40 MG PO (08:57)
[2024-11-02] MEDS: ASPIRIN 81 MG CHEWABLE TABLET PO (08:57)
[2024-11-02] MEDS: BENZONATATE 100 MG CAPSULE PO ×2 (08:58→18:07)
[2024-11-02] MEDS: DOXYCYCLINE HYCLATE 100 MG TABLET PO ×2 (08:58→21:19)
[2024-11-02] MEDS: CLOPIDOGREL BISULFATE 75 MG TABLET PO (08:58)
[2024-11-02] MEDS: AMOXICILLIN/CLAVULANATE K 875-125 MG TAB 1 TABLET PO ×2 (08:58→21:19)
[2024-11-02] MEDS: CITALOPRAM HYDROBROMIDE 5 MG TABLET PO (13:08)
[2024-11-02] MEDS: ALPRAZolam (*CRX) 0.25 MG TABLET PO (13:09)
--- NOTE | 2024-11-02 14:10 | P.PNIM_ITS ---
Progress Note: A&P Assessment and Plan (1) Sepsis: Qualifiers: Acute respiratory failure type: with hypoxia Sepsis acute organ dysfunction status: with acute organ dysfunction Sepsis type: sepsis due to unspecified organism Severe sepsis acute organ dysfunction type: acute respiratory failure Severe sepsis shock status: without septic shock Qualified Code(s): A41.9 - Sepsis, unspecified organism; R65.20 - Severe sepsis without septic shock; J96.01 - Acute respiratory failure with hypoxia Code(s): A41.9 - Sepsis, unspecified organism Status: Acute (2) Pneumonia due to influenza A virus: Code(s): J10.00 - Influenza due to other identified influenza virus with unspecified type of pneumonia Status: Acute (3) Acute hypoxic respiratory failure: Code(s): J96.01 - Acute respiratory failure with hypoxia Status: Acute (4) COPD (chronic obstructive pulmonary disease): Qualifiers: COPD type: COPD with acute lower respiratory infection Qualified Code(s): J44.0 - Chronic obstructive pulmonary disease with (acute) lower respiratory infection Code(s): J44.9 - Chronic obstructive pulmonary disease, unspecified Status: Acute (5) Acute kidney injury: Code(s): N17.9 - Acute kidney failure, unspecified Status: Acute (6) Hypotension: Qualifiers: Hypotension type: hypotension due to hypovolemia Qualified Code(s): E86.1 - Hypovolemia Code(s): I95.9 - Hypotension, unspecified Status: Acute (7) GERD (gastroesophageal reflux disease): Qualifiers: Esophagitis presence: esophagitis presence not specified Qualified Code(s): K21.9 - Gastro-esophageal reflux disease without esophagitis Code(s): K21.9 - Gastro-esophageal reflux disease without esophagitis Status: Acute (8) Hypothyroidism: Qualifiers: Hypothyroidism type: unspecified Qualified Code(s): E03.9 - Hypothyroidism, unspecified Code(s): E03.9 - Hypothyroidism, unspecified Status: Acute (9) Diarrhea: Qualifiers: Diarrhea type: unspecified type Qualified Code(s): R19.7 - Diarrhea, unspecified Code(s): R19.7 - Diarrhea, unspecified Status: Acute Plan 84-year-old female with a past medical history of COPD with continuous tobacco use, essential hypertension, GERD, coronary artery disease and hypothyroidism who presented to the ER from home due to shortness of breath. The patient was recently hospitalized at [place] due to pneumonia. She was originally prescribed Levaquin on discharge but did not take this due to abdominal bloating and nausea She was then given a script of cefdinir which was filled today but she did not start taking any of the doses. She decided come to the ER due to the degree of her shortness of breath but she presented to our facility because she did not want to be admitted back at [place]. She reports that she has been having a nonproductive cough for 8-10 days. She denies any fevers or chills. She reports her chest feels tight. She denies any recent known ill contacts and did receive her influenza vaccine this flu season. On arrival to ER she was hypoxic on room air, tachycardia, dyspneic and hypotensive. On 2 L nasal cannula patient oxygen saturations improved to 93- 98%. She reports that ever since she was hospitalized at [place] she had been having mushy stools. She had been having between 68 brown mushy stools a day. She denies any paola watery stools. She reports her abdomen feels distended but is nonpainful. Her bowel movements have slowed since she took and anti diarrheal at home. She reports generalized poor appetite. He does have intermittent urinary frequency and has had history of prior bladder suspension surgery and repair of a urethral diverticulum. She denies any dysuria or hematuria. Patient received 30 mL/kilos fluid bolus with normalization of her blood pressure and improvement her tachycardia. Labs demonstrated marked leukocytosis with a white count of 30 and lactic acidosis of 3 . CTA of the chest demonstrating lingular pneumonia with emphysematous changes without evidence of pulmonary embolism. Patient was started on broad-spectrum antibiotic coverage with cefepime, vancomycin and given a dose of Solu-Medrol and a DuoNeb. She was subsequently admitted in this setting. Acute hypoxic respiratory failure due to pneumonia and COPD exacerbation Pneumonia CTA with lingular pneumonia broad-spectrum antibiotics MRSA nares negative on doxy and cefepime. Will transition to oral antibiotics today COPD exacerbation add Mucinex on Solu-Medrol lower the dose. Change to prednisone today Sepsis Influenza a declines Tamiflu treatment Leukocytosis likely due to steroid Diarrhea multiple loose stools a day C diff came back negative. Imodium p.r.n. 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 It has now resolved. Troponin came back negative. patient was breathing better yesterday, this morning has rapid breath and her lungs sound harsh, She has been off oxygen however her O2 saturation is 91% on RA, will gave duo neb which did help, and do CXR did not show any significant acute cardiopulmonary disease, however patient appears quite anxious which causing difficulty with breathing gave low-dose of Xanax and start the patient on Celexa, today patient is feeling better and now on 1L N/C, spoke with patient wendy on the phone and answered all her questions, will monitor and further recommendation to follow. Code status full code Subjective Date/time seen: 11/02/24 14:10 Interval history: Overnight she received IV doxycycline that caused her to get burning sensation in her left arm. It has now resolved. Troponin came back negative. patient was breathing better yesterday, this morning has rapid breath and her lungs sound harsh, She has been off oxygen however her O2 saturation is 91% on RA, will gave duo neb which did help, and do CXR did not show any significant acute cardiopulmonary disease, however patient appears quite anxious which causing difficulty with breathing gave low-dose of Xanax and start the patient on Celexa, today patient is feeling better and now on 1L N/C, spoke with patient wendy on the phone and answered all her questions, will monitor and further recommendation to follow. Review of Systems Review of Systems: 12 systems were reviewed with pertinent positives and negatives per HPI. Except as documented in the HPI, all other systems were reviewed and are negative. The patient reports slight decreased sensation in her left hand ever since her stroke last year. However she has normal mixing pan tender strength bilaterally All systems reviewed & are unremarkable except as noted in HPI and below Exam Narrative: Patient is comfortable, NAD HEENT: eyes are clear and none icteric LUNGS: Bilateral fair entry with harsh breath sounds HEART: RR S1S2 ABD: BS+, Soft and nontender Lower extremities: no edema SKIN: nonjaundiced Neuro: grossly intact. Objective Data Vital Signs Vital Signs: Vital Signs - 24 hr 11/01/24 14:11 11/01/24 14:27 11/01/24 20:00 Temperature 36.4 C Pulse Rate 88 93 Respiratory Rate 22 H 17 Blood Pressure 150/59 H Pulse Oximetry 93 93 Oxygen Delivery Nasal Cannula Oxygen Flow Rate 2 Fraction of Inspired Oxygen 11/01/24 21:24 11/01/24 21:30 11/01/24 21:32 Temperature Pulse Rate 91 87 Respiratory Rate 22 H 22 H Blood Pressure Pulse Oximetry 92 Oxygen Delivery Nasal Cannula Oxygen Flow Rate 1 Fraction of Inspired Oxygen 11/01/24 22:00 11/02/24 02:00 11/02/24 02:10 Temperature 36.8 C Pulse Rate 87 91 89 Respiratory Rate 20 22 H 22 H Blood Pressure 155/66 H Pulse Oximetry 95 Oxygen Delivery Oxygen Flow Rate Fraction of Inspired Oxygen 11/02/24 05:57 11/02/24 07:25 11/02/24 07:25 Temperature 36.8 C Pulse Rate 87 85 Respiratory Rate 20 20 Blood Pressure 155/57 H Pulse Oximetry 95 93 Oxygen Delivery Nasal Cannula Oxygen Flow Rate 2 Fraction of Inspired Oxygen 28 11/02/24 07:36 11/02/24 09:00 11/02/24 13:31 Temperature Pulse Rate 86 Respiratory Rate 20 Blood Pressure Pulse Oximetry 95 83 L Oxygen Delivery Nasal Cannula Nasal Cannula Oxygen Flow Rate 1 1 Fraction of Inspired Oxygen 11/02/24 13:34 11/02/24 13:34 11/02/24 13:43 Temperature Pulse Rate 92 96 Respiratory Rate 24 H 24 H Blood Pressure Pulse Oximetry 90 Oxygen Delivery Nasal Cannula Oxygen Flow Rate 2 Fraction of Inspired Oxygen 28 11/02/24 13:43 11/02/24 13:53 Temperature Pulse Rate Respiratory Rate Blood Pressure Pulse Oximetry 96 95 Oxygen Delivery Nasal Cannula Nasal Cannula Oxygen Flow Rate 2 2 Fraction of Inspired Oxygen 28 28 Intake/Output Intake/Output: Intake & Output 10/30/24 10/31/24 11/01/24 11/02/24 23:59 23:59 23:59 23:59 Intake Total 2310 2220 1838.8 1030 Output Total 3800 Balance -1490 2220 1838.8 1030 Meds/Results Medications: Active Medications Generic Name Dose Route Start Last Admin Trade Name Freq PRN Reason Stop Dose Admin Acetaminophen 650 mg 10/26/24 20:00 10/28/24 09:44 Acetaminophen 325 Mg Tablet PO 650 mg Q4H PRN Administration Mild Pain (1-3) or Fever Albuterol/Ipratropium 3 ml 10/31/24 14:00 11/02/24 13:34 Ipratropium 0.5 Mg/Albuterol Sulfate 2.5 Mg Ampul.Neb 3 Ml INHALATION 3 ml Q6HRT DEJON Administration Alprazolam 0.25 mg 11/01/24 09:59 11/02/24 13:09 Alprazolam (*Crx) 0.25 Mg Tablet PO 0.25 mg TID PRN Administration Anxiety Amoxicillin/Clavulanate Potassium 1 tablet 10/29/24 18:00 11/02/24 08:58 Amoxicillin/Clavulanate K 875-125 Mg Tab PO 11/03/24 09:01 1 tablet Q12HR DEJON Administration Aspirin 81 mg 10/27/24 09:00 11/02/24 08:57 Aspirin 81 Mg Chewable Tablet PO 81 mg DAILY DEJON Administration Atorvastatin Calcium 40 mg 10/27/24 18:00 11/01/24 17:39 Atorvastatin 40 Mg Tablet PO 40 mg QPM DEJON Administration Benzonatate 100 mg 10/27/24 00:12 11/02/24 08:58 Benzonatate 100 Mg Capsule PO 100 mg TID PRN Administration cough Citalopram Hydrobromide 5 mg 11/02/24 09:00 11/02/24 13:08 Citalopram Hydrobromide 5 Mg Tablet PO 5 mg QAM DEJON Administration Clopidogrel Bisulfate 75 mg 10/27/24 09:00 11/02/24 08:58 Clopidogrel Bisulfate 75 Mg Tablet PO 75 mg DAILY DEJON Administration Doxycycline Hyclate 100 mg 10/29/24 09:50 11/02/24 08:58 Doxycycline Hyclate 100 Mg Tablet PO 11/02/24 21:01 100 mg Q12HR DEJON Administration Guaifenesin 600 mg 10/28/24 12:20 11/02/24 08:57 Guaifenesin 12 Hr 600 Mg Tabcr PO 600 mg Q12HR DEJON Administration Levothyroxine Sodium 125 mcg 10/27/24 06:30 11/02/24 05:59 Levothyroxine Sodium 125 Mcg Tablet PO 125 mcg DAILY@0630 DEJON Administration Loperamide HCl 2 mg 10/27/24 06:51 Loperamide Hcl 2 Mg Capsule PO PRN PRN Diarrhea Meclizine HCl 25 mg 10/27/24 00:12 Meclizine Hcl 25 Mg Tablet PO QID PRN dizziness Pantoprazole Sodium 40 mg 10/27/24 09:00 11/02/24 08:57 Pantoprazole 40 Mg Tablet PO 40 mg DAILY DEJON Administration Prednisone 40 mg 10/30/24 08:00 11/02/24 08:57 Prednisone 20 Mg Tablet PO 40 mg DAILY@0800 DEJON Administration Sodium Chloride 10 ml 10/27/24 22:00 11/02/24 05:59 Saline Lock Flush IV PUSH 10 ml Q8HR DEJON Administration Sodium Chloride 10 ml 10/27/24 15:26 Saline Lock Flush IV PUSH PRN PRN Flush Sodium Chloride 20 ml 10/27/24 15:26 Saline Lock Flush IV PUSH PRN PRN after blood draws Radiology Results: ITS Impressions Chest CTA 10/26/24 18:26 IMPRESSION: 1. No pulmonary embolus. Sensitivity is mildly decreased by motion artifact. 2. Mild pneumonia in lingula. 3. Mild emphysema. 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 Chest X-Ray 10/31/24 13:13 IMPRESSION: 1. Airspace opacities in the lower lung zones, consistent with atelectasis versus pneumonia. Labs Labs: Laboratory Results - last 24 hr 11/02/24 06:16 WBC 13.1 H RBC 3.84 L Hgb 9.0 L Hct 31.1 L MCV 81.0 MCH 23.4 L MCHC 28.9 L RDW 17.7 H Plt Count 337 MPV 10.0 Sodium 137 Potassium 4.7 Chloride 101 Carbon Dioxide 29 Anion Gap 7 BUN 39 H Creatinine 1.09 H Estim Creat Clear Calc 33 Estimated GFR 48 L Glucose 97 Calcium 9.5 Magnesium 1.8 Quality VTE Prophylaxis VTE prophylaxis: mechanical ordered (SCDs)
[2024-11-02] MEDS: ATORVASTATIN 40 MG TABLET PO (18:07)
[2024-11-03] VITALS (13 sets, daily range): BP systolic 150–151; BP diastolic 62–77; PULSE 84–97; RESP 18–20; TEMP 36.8–36.9; O2SAT 91–98
[2024-11-03] MEDS: IPRATROPIUM 0.5 MG/ALBUTEROL SULFATE 2.5 MG AMPUL.NEB 3 ML INHALATION ×4 (02:20→19:56)
[2024-11-03] MEDS: LEVOTHYROXINE SODIUM 125 MCG TABLET PO (05:21)
[2024-11-03] MEDS: SALINE LOCK FLUSH 10 ML IV PUSH ×3 (05:22→20:10)
[2024-11-03] MEDS: ASPIRIN 81 MG CHEWABLE TABLET PO (09:53)
[2024-11-03] MEDS: PANTOPRAZOLE 40 MG TABLET PO (09:53)
[2024-11-03] MEDS: predniSONE 20 MG TABLET 40 MG PO (09:53)
[2024-11-03] MEDS: CLOPIDOGREL BISULFATE 75 MG TABLET PO (09:53)
[2024-11-03] MEDS: guaiFENesin 12 HR 600 MG TABCR PO ×2 (09:53→20:09)
[2024-11-03] MEDS: CITALOPRAM HYDROBROMIDE 5 MG TABLET PO (09:53)
[2024-11-03] MEDS: AMOXICILLIN/CLAVULANATE K 875-125 MG TAB 1 TABLET PO (09:53)
[2024-11-03 09:56] LABS: Hematocrit 31.1 % (37.0-47.0); Mean Corpuscular HGB Conc 28.9 g/dl (32-36); Mean Corpuscular Hemoglobin 23.7 pg (26-34); Mean Corpuscular Volume 81.8 fl (80-100); Platelet Count Result 344 k/mm3 (150-375); Red Cell Distribution Width 17.4 % (11.5-14.5); White Blood Count 14.4 K/mm3 (4.5-10.0)
[2024-11-03 10:07] LABS: Anion Gap 11 mmol/L (4-12); Blood Urea Nitrogen 41 mg/dL (7-17); Calcium 9.2 mg/dL (8.4-10.2); Carbon Dioxide 24 mmol/L (22-30); Chloride 102 mmol/L (98-107); Estimated CRCL calculation 32 ml/min; Estimated Glomerular Filt Rate 46; Glucose 116 mg/dL (65-110); Magnesium 1.6 mg/dL (1.6-2.3); Potassium 4.7 mmol/L (3.4-5.0); Sodium 137 mmol/L (137-145)
--- NOTE | 2024-11-03 12:17 | WPDPN ---
Progress Note: A&P Assessment and Plan (1) Sepsis: Qualifiers: Acute respiratory failure type: with hypoxia Sepsis acute organ dysfunction status: with acute organ dysfunction Sepsis type: sepsis due to unspecified organism Severe sepsis acute organ dysfunction type: acute respiratory failure Severe sepsis shock status: without septic shock Qualified Code(s): A41.9 - Sepsis, unspecified organism; R65.20 - Severe sepsis without septic shock; J96.01 - Acute respiratory failure with hypoxia Code(s): A41.9 - Sepsis, unspecified organism Status: Acute (2) Pneumonia due to influenza A virus: Code(s): J10.00 - Influenza due to other identified influenza virus with unspecified type of pneumonia Status: Acute (3) Acute hypoxic respiratory failure: Code(s): J96.01 - Acute respiratory failure with hypoxia Status: Acute (4) COPD (chronic obstructive pulmonary disease): Qualifiers: COPD type: COPD with acute lower respiratory infection Qualified Code(s): J44.0 - Chronic obstructive pulmonary disease with (acute) lower respiratory infection Code(s): J44.9 - Chronic obstructive pulmonary disease, unspecified Status: Acute (5) Acute kidney injury: Code(s): N17.9 - Acute kidney failure, unspecified Status: Acute (6) Hypotension: Qualifiers: Hypotension type: hypotension due to hypovolemia Qualified Code(s): E86.1 - Hypovolemia Code(s): I95.9 - Hypotension, unspecified Status: Acute (7) GERD (gastroesophageal reflux disease): Qualifiers: Esophagitis presence: esophagitis presence not specified Qualified Code(s): K21.9 - Gastro-esophageal reflux disease without esophagitis Code(s): K21.9 - Gastro-esophageal reflux disease without esophagitis Status: Acute (8) Hypothyroidism: Qualifiers: Hypothyroidism type: unspecified Qualified Code(s): E03.9 - Hypothyroidism, unspecified Code(s): E03.9 - Hypothyroidism, unspecified Status: Acute (9) Diarrhea: Qualifiers: Diarrhea type: unspecified type Qualified Code(s): R19.7 - Diarrhea, unspecified Code(s): R19.7 - Diarrhea, unspecified Status: Acute Plan 84-year-old female with a past medical history of COPD with continuous tobacco use, essential hypertension, GERD, coronary artery disease and hypothyroidism who presented to the ER from home due to shortness of breath. The patient was recently hospitalized at [facility] due to pneumonia. She was originally prescribed Levaquin on discharge but did not take this due to abdominal bloating and nausea She was then given a script of cefdinir which was filled today but she did not start taking any of the doses. She decided come to the ER due to the degree of her shortness of breath but she presented to our facility because she did not want to be admitted back at [facility]. She reports that she has been having a nonproductive cough for 8-10 days. She denies any fevers or chills. She reports her chest feels tight. She denies any recent known ill contacts and did receive her influenza vaccine this flu season. On arrival to ER she was hypoxic on room air, tachycardia, dyspneic and hypotensive. On 2 L nasal cannula patient oxygen saturations improved to 93-98%. She reports that ever since she was hospitalized at [facility] she had been having mushy stools. She had been having between 68 brown mushy stools a day. She denies any paola watery stools. She reports her abdomen feels distended but is nonpainful. Her bowel movements have slowed since she took and anti diarrheal at home. She reports generalized poor appetite. He does have intermittent urinary frequency and has had history of prior bladder suspension surgery and repair of a urethral diverticulum. She denies any dysuria or hematuria. Patient received 30 mL/kilos fluid bolus with normalization of her blood pressure and improvement her tachycardia. Labs demonstrated marked leukocytosis with a white count of 30 and lactic acidosis of 3 . CTA of the chest demonstrating lingular pneumonia with emphysematous changes without evidence of pulmonary embolism. Patient was started on broad-spectrum antibiotic coverage with cefepime, vancomycin and given a dose of Solu-Medrol and a DuoNeb. She was subsequently admitted in this setting. Acute hypoxic respiratory failure due to pneumonia and COPD exacerbation Pneumonia CTA with lingular pneumonia broad-spectrum antibiotics MRSA nares negative on doxy and cefepime. Will transition to oral antibiotics today COPD exacerbation add Mucinex on Solu-Medrol lower the dose. Change to prednisone today Sepsis Influenza a declines Tamiflu treatment Leukocytosis likely due to steroid Diarrhea multiple loose stools a day C diff came back negative. Imodium p.r.n. 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 It has now resolved. Troponin came back negative. patient was breathing better yesterday, this morning has rapid breath and her lungs sound harsh, She has been off oxygen however her O2 saturation is 91% on RA, will gave duo neb which did help, and do CXR did not show any significant acute cardiopulmonary disease, however patient appears quite anxious which causing difficulty with breathing gave low-dose of Xanax and started the patient on Celexa, patient is feeling better and now on 1L N/C, on 11/02 spoke with rachna nguyen on the phone and answered all her questions, patient remains clinically stable however with exertion gets short-winded required oxygen, will have a home O2 eval, will monitor and further recommendation to follow. Code status full code Subjective Date/time seen: 11/03/24 12:17 Interval history: Overnight she received IV doxycycline that caused her to get burning sensation in her left arm. It has now resolved. Troponin came back negative. patient was breathing better yesterday, this morning has rapid breath and her lungs sound harsh, She has been off oxygen however her O2 saturation is 91% on RA, will gave duo neb which did help, and do CXR did not show any significant acute cardiopulmonary disease, however patient appears quite anxious which causing difficulty with breathing gave low-dose of Xanax and started the patient on Celexa, patient is feeling better and now on 1L N/C, on 11/02 spoke with rachna nguyen on the phone and answered all her questions, patient remains clinically stable however with exertion gets short-winded required oxygen, will have a home O2 eval, will monitor and further recommendation to follow. Review of Systems Review of Systems: 12 systems were reviewed with pertinent positives and negatives per HPI. Except as documented in the HPI, all other systems were reviewed and are negative. The patient reports slight decreased sensation in her left hand ever since her stroke last year. However she has normal vehicle body sander strength bilaterally Exam Narrative: Patient is comfortable, NAD HEENT: eyes are clear and none icteric LUNGS: Bilateral fair entry with harsh breath sounds HEART: RR S1S2 ABD: BS+, Soft and nontender Lower extremities: no edema SKIN: nonjaundiced Neuro: grossly intact. Objective Data Vital Signs Vital Signs: Vital Signs - 24 hr 11/02/24 13:09 11/02/24 13:31 11/02/24 13:34 Temperature 36.4 C L Pulse Rate 94 Respiratory Rate 20 Blood Pressure Pulse Oximetry 93 83 L 90 Oxygen Delivery Nasal Cannula Nasal Cannula Oxygen Flow Rate 1 2 Fraction of Inspired Oxygen 11/02/24 13:34 11/02/24 13:43 11/02/24 13:43 Temperature Pulse Rate 92 96 Respiratory Rate 24 H 24 H Blood Pressure Pulse Oximetry 96 Oxygen Delivery Nasal Cannula Oxygen Flow Rate 2 Fraction of Inspired Oxygen 11/02/24 13:53 11/02/24 13:54 11/02/24 19:56 Temperature Pulse Rate Respiratory Rate Blood Pressure 170/70 H Pulse Oximetry 95 91 Oxygen Delivery Nasal Cannula Nasal Cannula Oxygen Flow Rate 2 2 Fraction of Inspired Oxygen 11/02/24 19:56 11/02/24 20:00 11/02/24 20:11 Temperature Pulse Rate 89 89 Respiratory Rate 20 20 Blood Pressure Pulse Oximetry 95 Oxygen Delivery Nasal Cannula Oxygen Flow Rate 2 Fraction of Inspired Oxygen 11/02/24 21:42 11/03/24 02:20 11/03/24 02:30 Temperature 36.7 C Pulse Rate 91 89 89 Respiratory Rate 20 20 20 Blood Pressure 137/50 L Pulse Oximetry 95 Oxygen Delivery Oxygen Flow Rate Fraction of Inspired Oxygen 11/03/24 06:00 11/03/24 07:48 11/03/24 07:48 Temperature 36.8 C Pulse Rate 86 85 Respiratory Rate 20 20 Blood Pressure Pulse Oximetry 98 98 Oxygen Delivery Nasal Cannula Oxygen Flow Rate 2 Fraction of Inspired Oxygen 11/03/24 07:58 11/03/24 08:00 Temperature Pulse Rate 84 Respiratory Rate 20 Blood Pressure Pulse Oximetry 98 Oxygen Delivery Nasal Cannula Oxygen Flow Rate 2 Fraction of Inspired Oxygen Intake/Output Intake/Output: Intake & Output 10/31/24 11/01/24 11/02/24 11/03/24 23:59 23:59 23:59 23:59 Intake Total 2220 1838.8 1470 540 Balance 2220 1838.8 1470 540 Meds/Results Medications: Active Medications Generic Name Dose Route Start Last Admin Trade Name Freq PRN Reason Stop Dose Admin Acetaminophen 650 mg 10/26/24 20:00 10/28/24 09:44 Acetaminophen 325 Mg Tablet PO 650 mg Q4H PRN Administration Mild Pain (1-3) or Fever Albuterol/Ipratropium 3 ml 10/31/24 14:00 11/03/24 07:44 Ipratropium 0.5 Mg/Albuterol Sulfate 2.5 Mg Ampul.Neb 3 Ml INHALATION 3 ml Q6HRT DEJON Administration Alprazolam 0.25 mg 11/01/24 09:59 11/02/24 13:09 Alprazolam (*Crx) 0.25 Mg Tablet PO 0.25 mg TID PRN Administration Anxiety Aspirin 81 mg 10/27/24 09:00 11/03/24 09:53 Aspirin 81 Mg Chewable Tablet PO 81 mg DAILY DEJON Administration Atorvastatin Calcium 40 mg 10/27/24 18:00 11/02/24 18:07 Atorvastatin 40 Mg Tablet PO 40 mg QPM DEJON Administration Benzonatate 100 mg 10/27/24 00:12 11/02/24 18:07 Benzonatate 100 Mg Capsule PO 100 mg TID PRN Administration cough Citalopram Hydrobromide 5 mg 11/02/24 09:00 11/03/24 09:53 Citalopram Hydrobromide 5 Mg Tablet PO 5 mg QAM DEJON Administration Clopidogrel Bisulfate 75 mg 10/27/24 09:00 11/03/24 09:53 Clopidogrel Bisulfate 75 Mg Tablet PO 75 mg DAILY DEJON Administration Guaifenesin 600 mg 10/28/24 12:20 11/03/24 09:53 Guaifenesin 12 Hr 600 Mg Tabcr PO 600 mg Q12HR DEJON Administration Levothyroxine Sodium 125 mcg 10/27/24 06:30 11/03/24 05:21 Levothyroxine Sodium 125 Mcg Tablet PO 125 mcg DAILY@0630 DEJON Administration Loperamide HCl 2 mg 10/27/24 06:51 Loperamide Hcl 2 Mg Capsule PO PRN PRN Diarrhea Meclizine HCl 25 mg 10/27/24 00:12 Meclizine Hcl 25 Mg Tablet PO QID PRN dizziness Pantoprazole Sodium 40 mg 10/27/24 09:00 11/03/24 09:53 Pantoprazole 40 Mg Tablet PO 40 mg DAILY DEJON Administration Prednisone 40 mg 10/30/24 08:00 11/03/24 09:53 Prednisone 20 Mg Tablet PO 40 mg DAILY@0800 DEJON Administration Sodium Chloride 10 ml 10/27/24 22:00 11/03/24 05:22 Saline Lock Flush IV PUSH 10 ml Q8HR DEJNO Administration Sodium Chloride 10 ml 10/27/24 15:26 Saline Lock Flush IV PUSH PRN PRN Flush Sodium Chloride 20 ml 10/27/24 15:26 Saline Lock Flush IV PUSH PRN PRN after blood draws Radiology Results: ITS Impressions Chest CTA 10/26/24 18:26 IMPRESSION: 1. No pulmonary embolus. Sensitivity is mildly decreased by motion artifact. 2. Mild pneumonia in lingula. 3. Mild emphysema. 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 Chest X-Ray 10/31/24 13:13 IMPRESSION: 1. Airspace opacities in the lower lung zones, consistent with atelectasis versus pneumonia. Labs Labs: Laboratory Results - last 24 hr 11/03/24 09:48 WBC 14.4 H RBC 3.80 L Hgb 9.0 L Hct 31.1 L MCV 81.8 MCH 23.7 L MCHC 28.9 L RDW 17.4 H Plt Count 344 MPV 10.0 Sodium 137 Potassium 4.7 Chloride 102 Carbon Dioxide 24 Anion Gap 11 BUN 41 H Creatinine 1.13 H Estim Creat Clear Calc 32 Estimated GFR 46 L Glucose 116 H Calcium 9.2 Magnesium 1.6 Quality VTE Prophylaxis VTE prophylaxis: mechanical ordered (SCDs)
[2024-11-03] MEDS: ATORVASTATIN 40 MG TABLET PO (17:50)
[2024-11-04] VITALS (15 sets, daily range): BP systolic 143–146; BP diastolic 63–98; PULSE 79–112; RESP 18–24; TEMP 36.3–36.7; O2SAT 91–95
[2024-11-04] MEDS: IPRATROPIUM 0.5 MG/ALBUTEROL SULFATE 2.5 MG AMPUL.NEB 3 ML INHALATION ×4 (01:56→20:32)
[2024-11-04] MEDS: SALINE LOCK FLUSH 10 ML IV PUSH ×3 (05:24→20:16)
[2024-11-04] MEDS: LEVOTHYROXINE SODIUM 125 MCG TABLET PO (05:24)
[2024-11-04 06:54] LABS: Hematocrit 30.7 % (37.0-47.0); Hemoglobin 9.1 g/dL (12.0-15.0); Mean Corpuscular HGB Conc 29.6 g/dl (32-36); Mean Corpuscular Hemoglobin 23.7 pg (26-34); Mean Corpuscular Volume 79.9 fl (80-100); Platelet Count Result 341 k/mm3 (150-375); Red Blood Count 3.84 M/mm3 (4.2-5.4); Red Cell Distribution Width 17.4 % (11.5-14.5); White Blood Count 13.9 K/mm3 (4.5-10.0)
[2024-11-04 07:11] LABS: Anion Gap 9 mmol/L (4-12); Blood Urea Nitrogen 40 mg/dL (7-17); Calcium 9.5 mg/dL (8.4-10.2); Carbon Dioxide 26 mmol/L (22-30); Chloride 101 mmol/L (98-107); Estimated CRCL calculation 29 ml/min; Estimated Glomerular Filt Rate 40; Glucose 117 mg/dL (65-110); Magnesium 1.7 mg/dL (1.6-2.3); Sodium 136 mmol/L (137-145)
[2024-11-04] MEDS: predniSONE 20 MG TABLET 40 MG PO (09:28)
[2024-11-04] MEDS: ASPIRIN 81 MG CHEWABLE TABLET PO (09:29)
[2024-11-04] MEDS: polyethylene glycoL 3350 17 GM POWD.PACK PO (09:29)
[2024-11-04] MEDS: CITALOPRAM HYDROBROMIDE 5 MG TABLET PO (09:29)
[2024-11-04] MEDS: CLOPIDOGREL BISULFATE 75 MG TABLET PO (09:29)
[2024-11-04] MEDS: PANTOPRAZOLE 40 MG TABLET PO (09:29)
[2024-11-04] MEDS: guaiFENesin 12 HR 600 MG TABCR PO ×2 (09:29→20:15)
--- NOTE | 2024-11-04 13:24 | HOMEO2EVAL ---
Evaluation was performed at [facility] Home Oxygen Evaluation RC: Home Oxygen (O2) Evaluation Start: 11/03/24 08:59 Freq: ONCE Status: Active Protocol: RPE Activity Type Activity Date Activity User E-sign Co-sign Detail Recorded Client Recorded Date Recorded By Document 11/04/24 10:30 ROSHAN [email or web address] 11/04/24 13:24 ROSHAN Document 11/04/24 10:32 ROSHAN [id number] 11/04/24 13:24 ROSHAN Document 11/04/24 10:45 ROSHAN [id number] 11/04/24 13:24 ROSHAN 11/04/24 11/04/24 11/04/24 10:30 10:32 10:45 Home O2 Evaluation [Oxygen] -Test Phase Resting Exercise Resting -Oxygen Delivery Room Air Room Air Room Air [Pulse Oximetry] -Pulse Oximetry (90-100 %) 93 91 93 [Pulse Rate] -Pulse Rate (60-100 beats/min) 98 112 H 93 [Evaluation] -Activity Tolerance Excellent [Exercise] -Ambulation Distance (feet) 200 -Ambulation Distance (meters) 60.95 [Comments] -Home Oxygen Evaluation Comments No home O2 needed. [Charges] -Evaluation Charges O2 Evaluation by Pulmonary
--- NOTE | 2024-11-04 13:24 | PCRCNOTE ---
Home O2 eval done, no home O2 needed
[2024-11-04] MEDS: ATORVASTATIN 40 MG TABLET PO (16:53)
[2024-11-05 03:07] VITALS: PULSE 84; RESP 20
[2024-11-05] MEDS: IPRATROPIUM 0.5 MG/ALBUTEROL SULFATE 2.5 MG AMPUL.NEB 3 ML INHALATION ×2 (03:07→08:18)
[2024-11-05 05:20] VITALS: BP 158/57; PULSE 94; RESP 18; TEMP 36.2; O2SAT 100
[2024-11-05] MEDS: SALINE LOCK FLUSH 10 ML IV PUSH (05:24)
[2024-11-05] MEDS: LEVOTHYROXINE SODIUM 125 MCG TABLET PO (05:24)
[2024-11-05 07:21] LABS: Hematocrit 30.6 % (37.0-47.0); Hemoglobin 8.9 g/dL (12.0-15.0); Mean Corpuscular HGB Conc 29.1 g/dl (32-36); Mean Corpuscular Hemoglobin 23.4 pg (26-34); Mean Corpuscular Volume 80.3 fl (80-100); Mean Platelet Volume 9.9 fl (7.4-10.4); Platelet Count Result 331 k/mm3 (150-375); Red Blood Count 3.81 M/mm3 (4.2-5.4); Red Cell Distribution Width 17.4 % (11.5-14.5); White Blood Count 14.5 K/mm3 (4.5-10.0)
[2024-11-05 07:31] LABS: Anion Gap 7 mmol/L (4-12); Blood Urea Nitrogen 36 mg/dL (7-17); Calcium 9.2 mg/dL (8.4-10.2); Carbon Dioxide 28 mmol/L (22-30); Chloride 100 mmol/L (98-107); Estimated CRCL calculation 35 ml/min; Estimated Glomerular Filt Rate 51; Glucose 100 mg/dL (65-110); Magnesium 1.7 mg/dL (1.6-2.3); Potassium 4.3 mmol/L (3.4-5.0); Sodium 135 mmol/L (137-145)
--- NOTE | 2024-11-05 08:04 | PM.IMPN ---
Subjective Date/time seen: 11/05/24 08:04 Objective Data Vital Signs Vital Signs: Vital Signs - 24 hr 11/04/24 09:35 11/04/24 10:30 11/04/24 10:32 Temperature Pulse Rate 98 112 H Respiratory Rate Blood Pressure Pulse Oximetry 95 93 91 Oxygen Delivery Room Air Room Air Room Air Fraction of Inspired Oxygen 11/04/24 10:45 11/04/24 13:46 11/04/24 13:46 Temperature Pulse Rate 93 98 Respiratory Rate 24 H Blood Pressure Pulse Oximetry 93 91 Oxygen Delivery Room Air Room Air Fraction of Inspired Oxygen 21 11/04/24 13:53 11/04/24 14:00 11/04/24 20:00 Temperature 36.7 C Pulse Rate 91 96 Respiratory Rate 20 18 Blood Pressure 146/63 H Pulse Oximetry 93 Oxygen Delivery Room Air Fraction of Inspired Oxygen 21 11/04/24 20:32 11/04/24 20:40 11/04/24 22:00 Temperature 36.3 C L Pulse Rate 88 86 79 Respiratory Rate 20 20 18 Blood Pressure 143/98 H Pulse Oximetry 95 Oxygen Delivery Fraction of Inspired Oxygen 11/05/24 03:07 11/05/24 05:20 Temperature 36.2 C L Pulse Rate 84 94 Respiratory Rate 20 18 Blood Pressure 158/57 H Pulse Oximetry 100 Oxygen Delivery Fraction of Inspired Oxygen Intake/Output Intake/Output: Intake & Output 11/02/24 11/03/24 11/04/24 11/05/24 23:59 23:59 23:59 23:59 Intake Total 1470 1570 2300 550 Balance 1470 1570 2300 550 Meds/Results Medications: Active Medications Generic Name Dose Route Start Last Admin Trade Name Freq PRN Reason Stop Dose Admin Acetaminophen 650 mg 10/26/24 20:00 10/28/24 09:44 Acetaminophen 325 Mg Tablet PO 650 mg Q4H PRN Administration Mild Pain (1-3) or Fever Albuterol/Ipratropium 3 ml 10/31/24 14:00 11/05/24 03:07 Ipratropium 0.5 Mg/Albuterol Sulfate 2.5 Mg Ampul.Neb 3 Ml INHALATION 3 ml Q6HRT DEJON Administration Alprazolam 0.25 mg 11/01/24 09:59 11/02/24 13:09 Alprazolam (*Crx) 0.25 Mg Tablet PO 0.25 mg TID PRN Administration Anxiety Aspirin 81 mg 10/27/24 09:00 11/04/24 09:29 Aspirin 81 Mg Chewable Tablet PO 81 mg DAILY DEJON Administration Atorvastatin Calcium 40 mg 10/27/24 18:00 11/04/24 16:53 Atorvastatin 40 Mg Tablet PO 40 mg QPM DEJON Administration Benzonatate 100 mg 10/27/24 00:12 11/02/24 18:07 Benzonatate 100 Mg Capsule PO 100 mg TID PRN Administration cough Citalopram Hydrobromide 5 mg 11/02/24 09:00 11/04/24 09:29 Citalopram Hydrobromide 5 Mg Tablet PO 5 mg QAM DEJON Administration Clopidogrel Bisulfate 75 mg 10/27/24 09:00 11/04/24 09:29 Clopidogrel Bisulfate 75 Mg Tablet PO 75 mg DAILY DEJON Administration Guaifenesin 600 mg 10/28/24 12:20 11/04/24 20:15 Guaifenesin 12 Hr 600 Mg Tabcr PO 600 mg Q12HR DEJON Administration Levothyroxine Sodium 125 mcg 10/27/24 06:30 11/05/24 05:24 Levothyroxine Sodium 125 Mcg Tablet PO 125 mcg DAILY@0630 DEJON Administration Loperamide HCl 2 mg 10/27/24 06:51 Loperamide Hcl 2 Mg Capsule PO PRN PRN Diarrhea Meclizine HCl 25 mg 10/27/24 00:12 Meclizine Hcl 25 Mg Tablet PO QID PRN dizziness Pantoprazole Sodium 40 mg 10/27/24 09:00 11/04/24 09:29 Pantoprazole 40 Mg Tablet PO 40 mg DAILY DEJON Administration Polyethylene Glycol 17 gm 11/04/24 08:34 11/04/24 09:29 Polyethylene Glycol 3350 17 Gm Powd.Pack PO 17 gm QAM PRN Administration Constipation Prednisone 40 mg 10/30/24 08:00 11/04/24 09:28 Prednisone 20 Mg Tablet PO 40 mg DAILY@0800 DEJON Administration Sodium Chloride 10 ml 10/27/24 22:00 11/05/24 05:24 Saline Lock Flush IV PUSH 10 ml Q8HR DEJON Administration Sodium Chloride 10 ml 10/27/24 15:26 Saline Lock Flush IV PUSH PRN PRN Flush Sodium Chloride 20 ml 10/27/24 15:26 Saline Lock Flush IV PUSH PRN PRN after blood draws Radiology Results: ITS Impressions Chest CTA 10/26/24 18:26 IMPRESSION: 1. No pulmonary embolus. Sensitivity is mildly decreased by motion artifact. 2. Mild pneumonia in lingula. 3. Mild emphysema. 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 Chest X-Ray 10/31/24 13:13 IMPRESSION: 1. Airspace opacities in the lower lung zones, consistent with atelectasis versus pneumonia. Abdomen X-Ray 11/04/24 15:29 IMPRESSION: NO ACUTE ABDOMINAL FINDINGS. Constipation. Labs Labs: Laboratory Results - last 24 hr 11/05/24 07:04 WBC 14.5 H RBC 3.81 L Hgb 8.9 L Hct 30.6 L MCV 80.3 MCH 23.4 L MCHC 29.1 L RDW 17.4 H Plt Count 331 MPV 9.9 Sodium 135 L Potassium 4.3 Chloride 100 Carbon Dioxide 28 Anion Gap 7 BUN 36 H Creatinine 1.02 H Estim Creat Clear Calc 35 Estimated GFR 51 L Glucose 100 Calcium 9.2 Magnesium 1.7
[2024-11-05 08:19] VITALS: PULSE 95; RESP 18
[2024-11-05 08:20] VITALS: O2SAT 91
[2024-11-05 08:28] VITALS: PULSE 90; RESP 18
[2024-11-05 08:35] VITALS: O2SAT 94
[2024-11-05] MEDS: predniSONE 20 MG TABLET 40 MG PO (08:38)
[2024-11-05] MEDS: guaiFENesin 12 HR 600 MG TABCR PO (08:38)
[2024-11-05] MEDS: PANTOPRAZOLE 40 MG TABLET PO (08:39)
[2024-11-05] MEDS: ASPIRIN 81 MG CHEWABLE TABLET PO (08:39)
[2024-11-05] MEDS: CLOPIDOGREL BISULFATE 75 MG TABLET PO (08:39)
[2024-11-05] MEDS: CITALOPRAM HYDROBROMIDE 5 MG TABLET PO (08:39)
--- NOTE | 2024-11-05 11:12 | P.DS_ITS ---
DS: Summary Time Spent with Patient Time attestation: Total time spent providing and/or coordinating discharge services: DS: Data Data Completed and Pending Labs on day of discharge: Labs from last 24 hours 11/05/24 07:04 WBC 14.5 H RBC 3.81 L Hgb 8.9 L Hct 30.6 L MCV 80.3 MCH 23.4 L MCHC 29.1 L RDW 17.4 H Plt Count 331 MPV 9.9 Sodium 135 L Potassium 4.3 Chloride 100 Carbon Dioxide 28 Anion Gap 7 BUN 36 H Creatinine 1.02 H Estim Creat Clear Calc 35 Estimated GFR 51 L Glucose 100 Calcium 9.2 Magnesium 1.7 Discharge Plan Discharge Attending physician on discharge: Margaret Garcia Discharging Clinician: Toya Ferrer Patient Disposition: Home, Self-Care Activity: as tolerated Diet: heart healthy Discharge Instructions: Patient to follow up with her primary care provider as soon as possible, patient is instructed if any symptoms worsen to go to nearest ER. Patient Instructions: Antibiotic Form, Clopidogrel (By mouth) Patient Language: Tristanian Stand Alone Forms: General Discharge Information Follow-up/Referrals: PHYSICIAN NOT ON STAFF,NONSTAFF [Primary Care Provider] - Discharge Medications: New alprazolam 0.25 mg Tablet 0.25 mg PO TID PRN (Reason: Anxiety) Qty: 10 0RF guaifenesin [Mucus Relief ER] 600 mg Tablet Extended Release 12hr 600 mg PO Q12HR Qty: 25 0RF citalopram [Celexa] 10 mg tablet 10 mg PO QAM Qty: 30 0RF citalopram [Celexa] 10 mg tablet 10 mg PO QAM Qty: 30 0RF prednisone 10 mg tablet 10 mg PO DAILY Qty: 20 0RF Rx Instructions: 4Tx2, 3Tx2d, 2Tx2d, 1Tx2d. Continued atorvastatin 40 mg tablet 40 mg PO QPM albuterol sulfate 2.5 mg /3 mL (0.083 %) solution for nebulization 2.5 mg inhalation Q4-6H PRN (Reason: shortness of breath or wheezing) alendronate 70 mg tablet 70 mg PO WEEKLY Rx Instructions: SUNDAYS clopidogrel 75 mg tablet 75 mg PO DAILY meclizine 25 mg tablet 25 mg PO QID PRN (Reason: dizziness) benzonatate 100 mg capsule 100 mg PO TID PRN (Reason: cough) pantoprazole 40 mg tablet,delayed release (DR/EC) 40 mg PO DAILY levothyroxine 125 mcg tablet 125 mcg PO DAILY aspirin 81 mg tablet,chewable 81 mg PO DAILY albuterol sulfate 90 mcg/actuation HFA aerosol inhaler 2 puff INHALATION Q4-6H PRN (Reason: shortness of breath or wheezing) cefdinir 300 mg capsule 300 mg PO Q12H valsartan-hydrochlorothiazide 160-25 mg tablet 1 tablet PO DAILY Date of admission: 10/26/24 20:00 Primary Care Provider: PHYSICIAN NOT ON STAFF,NONSTAFF Admitting Provider: Margaret Garcia Attending physician on admission: Margaret Garcia Condition: Guarded Prognosis
== END 2024-11-05 13:20 | disposition home or self-care (01) | DRG 871 ==
LOC: ANHED 20:18 → ANH3MED 10-27 00:14 → ANH3MEDSUR 11-01 10:47 → ANH3MED 11-07 14:10 → ANH3MEDSUR 11-07 14:10
PROVIDERS: Emergency Medicine; Internal Medicine; Admitting Provider Internal Medicine; Emergency Provider Student in an Organized Health Care Education/Training Program; Visit Provider Family Medicine
DX: A41.89 Other specified sepsis (principal); J10.00 Influenza due to other identified influenza virus with unspecified type of pneumonia; J96.01 Acute respiratory failure with hypoxia; J44.0 Chronic obstructive pulmonary disease with (acute) lower respiratory infection; J44.1 Chronic obstructive pulmonary disease with (acute) exacerbation; N17.9 Acute kidney failure, unspecified; R65.20 Severe sepsis without septic shock; E86.0 Dehydration; K21.9 Gastro-esophageal reflux disease without esophagitis; I25.10 Atherosclerotic heart disease of native coronary artery without angina pectoris; E03.9 Hypothyroidism, unspecified; M81.0 Age-related osteoporosis without current pathological fracture; I65.22 Occlusion and stenosis of left carotid artery; Z96.1 Presence of intraocular lens; Z98.42 Cataract extraction status, left eye; Z98.41 Cataract extraction status, right eye; Z87.891 Personal history of nicotine dependence; Z86.73 Personal history of transient ischemic attack (TIA), and cerebral infarction without residual deficits; Z95.820 Peripheral vascular angioplasty status with implants and grafts; Z90.49 Acquired absence of other specified parts of digestive tract
CPT/HCPCS: 36415; 36569; 36600; 71045; 71275; 74018; 80048; 80053; 82375; 82805; 83050; 83605; 83735; 84484; 85018; 85025; 85027; 86140; 87040; 87449; 87493; 87637; 87641; 87899; 93005; 94618; 94640; 96361; 96365; 96366; 96367; 96375; 99285; A9270; C1751; J0692; J2919; J3370; J3475; J7120; J7512; Q9967

== ENCOUNTER 2024-11-17 11:39 | Emergency (ER) | payer MEDICARE, SELFPAY ==
--- NOTE | ~2024-11-17 | CT_ITS ---
EXAMINATION: CT diagnostic chest wo con DATE: 11/17/2024 14:01 INDICATION: POSSIBLE PNEUMONIA TECHNIQUE: Computed tomography (CT) of the chest was performed with 100 mL Omnipaque-350 intravenous contrast. Automated exposure control and iterative reconstruction technique were employed. The dose-l ength product was 315.29 mGy-cm. COMPARISON: [facility] 10/26/2024; x-ray chest 11/17/2024. FINDINGS: CHEST: Thoracic aorta: Moderate atherosclerotic calcification. Mild descending aortic ectasia. Lung parenchyma and airways: Bibasilar atelectasis/scar. Moderate emphysematous change. Scattered pat jessica groundglass opacities, most notably in the left upper and lower lobes. Mild apical scarring. Mild septal thickening. Scattered sub-6 mm pulmonary nodules. Thoracic inlet, axillae and chest wall: No thyroid or soft tissue mass. No axillary lymphadenopathy. Mediastinum: No mass or lymphadenopathy. Dilated central pulmonary arteries as can be seen with pulmo nary arterial hypertension. Heart and pericardium: Aortic valve and mitral annulus calcification. Coronary artery calcifications: Mild. Pleura: No effusion or mass. Upper abdomen: No significant finding. Thoracic bones: No acute osseous finding in the chest. Stable mild T10 and T11 compression fractures. IMPRESSION: Mild scattered patchy groundglass opacities that may represent edema or infection, overlying moderate emphysema. Scattered sub-6 mm pulmonary nodules, which require no additional follow-up unless the patient is at high risk, in which case consider an optional low-dose noncontrast CT of the chest in 12 months. Reviewed, dictated and finalized at location K. IMPRESSION: Mild scattered patchy groundglass opacities that may represent edema or infecti on, overlying moderate emphysema. Scattered sub-6 mm pulmonary nodules, which require no additional follow-up unl ess the patient is at high risk, in which case consider an optional low-dose no ncontrast CT of the chest in 12 months.
--- NOTE | ~2024-11-17 | XR_ITS ---
XR chest 2V Ordering provider: Sapna Sousa MD History: 84 years Female with . weakness . Comparison: October 31, 2024 FINDINGS: MEDIASTINUM: The cardiac silhouette is slightly enlarged. . Device is projected over the left hemitho rax. Slightly prominent crys. LUNGS: No effusions or pneumothorax. Minimal opacification the left lung base is seen prominent estella ngs in both lung bases. OTHER: No free air under the diaphragm. Degenerative spine. IMPRESSION: Prominent markings in the lower lobes with minimal opacification the lung bases which may indicate ea rly pneumonia. Follow-up advised. Reviewed, dictated and finalized at location A. IMPRESSION: Prominent markings in the lower lobes with minimal opacification the lung bases which may indicate early pneumonia. Follow-up advised.
--- OUTSIDE RECORDS SUMMARY | 2024-11-17 11:41 | XMS_ITS | Encounter Summary ---
Author Organization [facility] Healthcare Address [address] [place] [address] Care Team Providers Care College Recruiter Name Role Phone Hayden Oreilly MD Primary Care Provi erinn Pipo Richardson MD Unavailable [phone] Reason for Visit * Reason Onset Date Comments Medical Question/Miscellaneous 10/18/2024 Encounter Details Date Type Department Care Team (Late st Contact Info) Description 10/18/2024 Telephone [facility] Medical Group Family Medicine [address] [place] [address] Hayden Oreilly MD [address] [place] [address] Medical Question/Miscellaneou s Social History Tobacco Use Types Packs/Day Years Used Date Smoking Tobacco: Former Cigarettes Q uit: 09/04/1992 Smokeless Tobacco: Never Comments:Quit 20 years ago Alcohol Use Standard Drinks/Week Comments Not Currently 0 (1 standard drink = 0.6 oz pur e alcohol) [facility] Utilities Answer Date Recorded In the past 12 months has [employer], gas, oil, or water company threatened to [...] often do you attend chur ch or mormon services? Never 05/09/2024 Do you belong to any clubs o r organizations such as mormonism groups, unions, fraternal or athletic groups, or [...] any time in the past 12 [facility], were you homeless or living in a penitentiary (including now)? No 05/09/2024 Personal Safety Answer Date Recorded Have you ever been in or are you currently in a harmful physical or emotional relationship or is someone making you feel afraid or unsafe? 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 MACHINE PLUG SHAPER Gender Identity Not on file Sexual Orientation Not on file documented as of this encounter Miscellaneous Notes * Telephone Encounter - Darlene Rosario MA - 10/22/2024 1:39 PM CST Spoke with patient she is going to call the insurance company to see if she can get on a payment plan. She is currently admitted to [facility] for bronchitis because her O2 dropped down to 92%. [employer]E PL[employer] SHAPER * Telephone Encounter - Hayden Oreilly MD - 10/18/2024 12:11 PM MACHINE PLUG SHAPER There is no alternative. If we have Luis we can give her that but she will still run into the same problem until the deductible is met, just like every other year [employer]E [employer] SH[employer]ER * Telephone Encounter - Darlene Rosario MA - 10/18/2024 11:37 AM MACHINE PLUG SHAPER She is unable to afford even if it possible due to deductible She is requesting an alternative medication. INE PLUG SHAPER * Telephone Encounter - Hayden Oreilly MD - 10/18/2024 11:08 AM MACHINE PLUG SHAPER She likely has to pay her deductible 1st to get any inhaler INE PLUG SHAPER * Telephone Encounter - Miriam Laurent MA - 10/18/2024 9:55 AM CST Medical Question/Miscellaneous Caller???s Concern: Patient was calling back to let the office know that the new inhaler would cost$700 so the patient told them to cancel it. Does message need to be routed? Yes-FYI Only INE PLUG SHAPER documented in this encounter Plan of Treatment Not on file documented as of this encounter Visit Diagnoses Not on filedocumented in this encounter Care Teams College Recruiter Relationship Specialty Start Date End Date Hayden Oreilly MD [address] [facility] [address] [place] [address] PCP - General Family Medicine 01/31/19 Pipo Richardson MD [address] [place] [address] Surgeon Vascular Surgery 02/27/24 documented as of this encounter
--- OUTSIDE RECORDS SUMMARY | 2024-11-17 11:41 | XMS_ITS | CONTINUITY OF CARE DOCUMENT ---
Author Name henrietta shrestha Address Unknown Organization [facility] Address [address] [place] [address] Phone [phone] Care Team Providers Care Independent Jeweler Name Role Phone Farshad JOE, Nannette Unavailable [phone] Nannette Yen MD Unavailable INSURANCE PROVIDERS Payer name Policy type / Coverage type [place] [employer] ID [employer] Other [id number] SELF PAY [place] Medicare [id number]
--- OUTSIDE RECORDS SUMMARY | 2024-11-17 11:41 | XMS_ITS | Encounter Summary ---
Author Organization [facility] Healthcare Address [address] [place] [address] Care Team Providers Care Maintenance Data Analyst Name Role Phone Hayden Oreilly MD Primary Care Provi erinn Pipo Richardson MD Unavailable [phone] Reason for Visit * Reason Onset Date Comments Medication Request 10/18/2024 Encounter Details Date Type Department Care Team (Late st Contact Info) Description 10/18/2024 Telephone [facility] Family Medicine [address] [place] [address] Hayden Oreilly MD [address] [place] [address] Medication Request Social History Tobacco Use Types Packs/Day Years Used Date Smoking Tobacco: Former Cigarettes Q uit: 09/04/1992 Smokeless Tobacco: Never Comments:Quit 20 years ago Alcohol Use Standard Drinks/Week Comments Not Currently 0 (1 standard drink = 0.6 oz pur e alcohol) [facility] Utilities Answer Date Recorded In the past 12 months has [employer] electric, gas, oil, or water company threatened [...] often do you attend chur ch or spiritism services? Never 05/09/2024 Do you belong to any clubs o r organizations such as religious groups, unions, fraternal or athletic groups, or [...] any time in the past 12 m [facility], were you homeless or living in a [place] [facility] facility (including now)? No 05/09/2024 Personal Safety Answer Date Recorded Have you ever been in or are you currently in a harmful physical or emotional relationship or is someone making you feel afraid or unsafe? 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 [employer] Gender Identity Not on file Sexual Orientation Not on file documented as of this encounter Ordered Prescriptions Prescription Sig Dispense Quantity Refills Last Filled Start Date End Date fluticasone-umecli din-vilanter (Trelegy Ellipta) 100-62.5-25 mcg inhalerIndications :Bronchospasm Prevention with COPD Inhale 1 puff daily 3 each 3 10/20/2024 11/08/2024 documented in this encounter Miscellaneous Notes * [...] message need to be routed? Yes-Action Needed CRUSHER documented in this encounter Plan of Treatment Not on file documented as of this encounter Visit Diagnoses Not on filedocumented in this encounter Care Teams Maintenance Data Analyst Relationship Specialty Start Date End Date Hayden Oreilly MD [address] [address] PCP - General Family Medicine 01/31/19 [place] [address] [place] [address] [address] RANGEL [facility] [place] [address] Surgeon Vascular Surgery 02/27/24 documented as of this encounter
--- OUTSIDE RECORDS SUMMARY | 2024-11-17 11:41 | XMS_ITS | Clinical Summary ---
Author Organization [facility] [address] [place] [address] Care Team Providers Care Internet Designer Name Role Phone Hayden Oreilly MD Primary Care Provi erinn Pipo Richardson MD Unavailable Allergies No known active allergies Medications nebulizers misc 1 Units every 6 (six) hours 1 each 022 Active cholecalciferol (VITAMIN D-3) 2000 unit tablet Act carroll aspirin 81 mg chewable tablet Take 1 tablet (81 mg total) by mouth daily Active atorvastatin (LIPITOR) 40 mg tablet Take 1 tablet (40 mg total) by mouth daily Active clopidogreL (PLAVIX) 75 mg tablet Take 1 tablet (75 mg total) by mouth daily Active pantoprazole DR (PROTONIX) 40 mg EC tablet TAKE 1 TABLET BY MOUTH EVERY DAY 100 tablet 1 024 Active alendronate (FOSAMAX) 70 mg tablet TAKE 1 TABLET BY MOUTH ONCE A WEEK WITH A FULL GLASS OF WATER ONLY. DO NOT LIE DOWN/EAT FOR 30 MINS 12 tablet 3 024 Active meclizine (ANTIVERT) 25 mg tablet 025 Active benzonatate (TESSALON) 100 mg capsuleIndicatio ns:Cough Take 1 capsule (100 mg total) by mouth 3 (three) times a day as needed for cough 42 capsule 025 Active albuterol HFA (PROVENTIL HFA,VENTOLIN HFA,PROAIR HFA) 90 mcg/actuation inhaler Inhale 2 puffs every 4 (four) hours as needed for wheezing 1 each 5 025 Active citalopram (CeleXA) 10 mg tablet Take 1 tablet (10 mg total) by mouth daily Active guaiFENesin ER (MUCINEX) 600 mg 12 hr tablet Take 1 tablet (600 mg total) by mouth 2 (two) times a day Active ALPRAZolam (XANAX) 0.25 mg tablet Take 1 tablet (0.25 mg total) by mouth 3 (three) times a day as needed for anxiety Active predniSONE (DELTASONE) 10 mg tablet Take by mouth daily 4 Tab for 2 days, 3 tabs for 2 days, 2 Tab for 2 days and 1 Tab for 2 days Active ipratropium-albu teroL (DUO-NEB) 0.5-2.5 mg/3 mL nebulizer solutionIndicati ons:Chronic obstructive pulmonary disease with acute exacerbation (HCC) Take 3 mL by nebulization 4 (four) times a day as needed for wheezing or shortness of breath 90 mL 5 025 Active fluticasone-umec lidin-vilanter (Trelegy Ellipta) 100-62.5-25 mcg inhalerIndicatio ns:Bronchospasm Prevention with COPD Inhale 1 puff daily 3 each 3 025 Active Additional Information Patient not taking.Reported on 11/14/2024 valsartan-hydroc hlorothiazide (DIOVAN-HCT) 160-25 mg per tablet TAKE 1 TABLET BY MOUTH EVERY DAY 90 tablet 1 025 Active levothyroxine (SYNTHROID) 125 mcg tablet TAKE 1 TABLET BY MOUTH EVERY DAY IN THE MORNING ON AN EMPTY STOMACH 90 tablet 1 025 Active albuterol 2.5 mg /3 mL (0.083 %) nebulizer solution Take 3 mL (2.5 mg total) by nebulization every 6 (six) hours as needed for wheezing 2024 Discontinued(R eorder) albuterol HFA (PROVENTIL HFA,VENTOLIN HFA,PROAIR HFA) 90 mcg/actuation inhaler Inhale 2 puffs every 4 (four) hours as needed for wheezing 1 each 5 024 2024 Discontinued(R eorder) levothyroxine (SYNTHROID) 125 mcg tablet TAKE 1 TABLET BY MOUTH EVERY DAY IN THE MORNING ON AN EMPTY STOMACH 90 tablet 1 024 2024 Discontinued valsartan-hydroc hlorothiazide (DIOVAN-HCT) 160-25 mg per tablet TAKE 1 TABLET BY MOUTH EVERY DAY 90 tablet 1 024 2024 Discontinued meloxicam (MOBIC) 15 mg tablet TAKE 1 TABLET BY MOUTH EVERY DAY 90 tablet 1 024 2024 Discontinued(T herapy completed) predniSONE (DELTASONE) 20 mg tabletIndication s:Shortness of breath Take 1 tablet (20 mg) by mouth 2 (two) times a day for 5 days 10 tablet 025 2024 ipratropium-albu teroL (COMBIVENT RESPIMAT) 20-100 mcg/actuation inhalerIndicatio ns:Chronic Obstructive Pulmonary Disease with Bronchospasms Inhale 2 puffs 3 (three) times a day 3 each 3 025 2024 Discontinued fluticasone-umec lidin-vilanter (Trelegy Ellipta) 100-62.5-25 mcg inhalerIndicatio ns:Bronchospasm Prevention with COPD Inhale 1 puff daily 3 each 3 025 2024 Discontinued cefdinir (OMNICEF) 300 mg capsule Take 1 capsule (300 mg total) by mouth 2 (two) times a day for 5 days 10 capsule 025 2024 albuterol 2.5 mg /3 mL (0.083 %) nebulizer solution Take 3 mL (2.5 mg total) by nebulization every 6 (six) hours as needed for wheezing or shortness of breath 75 mL 025 2024 Discontinued methylPREDNISolo ne (MEDROL DOSEPACK) 4 mg Dosepack Take as directed on package. 21 tablet 025 2024 Active Problems Problem Noted Date Diagnosed Date Shortness of breath 10/16/2024 Assessment & Plan (10/16/2024 3:17 PM SURGEON/PRESIDENT): O2 saturation between 92-94% at rest Recommended ER evaluation, patient declined Will treat for possible COPD exacerbation again with prednisone Albuterol as needed Already recently treated with prednisone, z pack Please see your PCP or helmet hat puncher in the future for recurrent COPD exacerbations Cough 10/16/2024 Assessment & Plan (10/16/2024 3:16 PM SURGEON/PRESIDENT): Mucinex as expectorant Albuterol nebulizer Prednisone Likely d/t COPD exacerbation Bronchitis 09/23/2024 Assessment & Plan (09/23/2024 11:51 AM SURGEON/PRESIDENT): Covid and flu test negative Wheezing throughout [...] 09/23/2024 Assessment & Plan (09/23/2024 12:04 PM SURGEON/PRESIDENT): Rapid strep positive Initiate Zithromax as this antibiotic is effective as well in patient's with COPD exacerbation and safe in patient's with CKD. Warm salt water gargles. Tylenol for sore throat, body aches, fever. Cerebrovascular accident (CVA) 05/01/2024 History of stroke 04/18/2024 Carotid artery occlusion 04/14/2024 Carotid occlusion, left 04/14/2024 Acute ischemic stroke 04/13/2024 Carotid stenosis 04/13/2024 Assessment & Plan (11/15/2024 11:36 AM CDT): Impression: History of carotid stenosis and was being monitored by [facility] however are no longer accepting her insurance and she is requesting for our office to resume call. Plan: We will have patient follow-up in 2 weeks for re-evaluation with a carotid duplex. Numbness and tingling of left upper extremity Assessment & Plan (11/15/2024 11:25 AM CDT): Impression: Patient complains of intermittent numbness and tingling to the left upper extremity since her hospitalization. She denies any chest pain, chest pressure, or pain to the upper extremity. On exam, patient has palpable radial and brachial pulses with equal and good hand seat cover cutter to bilateral upper extremities. Plan: Symptoms are unlikely vascular in nature we will have patient follow-up in 2 weeks for re-evaluation with an upper extremity arterial Doppler further evaluation. - Recommend patient to present to the emergency department if she experiences chest pain with radiating pain to her left arm. Patient and her daughter voiced understanding COPD (chronic obstructive pulmonary disease) 05/2024 Atherosclerosis of jackson ar mian of both lower extremities with intermittent claudication 01/31/2024 Assessment & Plan (11/15/2024 11:40 AM CDT): Impression: Patient is status post bilateral common iliac artery stent placement. She complains of numbness and weakness to bilateral lower extremities since her hospitalization. Lower extremity arterial duplex reveals elevated velocities to the left common iliac. Monophasic waveforms are noted to bilateral lower extremities with ABIs of 0.76 and 0.58. Plan: Recommend left lower extremity angiogram with possible intervention. Discussed the risks with the patient and her daughters. Patient has a history of kidney disease and discussed with the patient and her daughters the use of utilizing contrast dye which could potentially worsening kidney function and could potentially patient to initiate dialysis. Patient's daughters would like to discuss this more with their mom. -Patient will be following up in 2 weeks after undergoing carotid and upper extremity Dopplers. We will further evaluate at that time. -We will have patient follow-up in 3 months for re-evaluation with repeat iliac duplex. Encouraged patient to make a sooner appointment if she develops claudication, ischemic rest pain or nonhealing ulcerations to her lower extremity. Assessment & Plan (05/16/2024 9:14 AM CDT): [...] Problem Noted Date Diagnosed Date Resolved Date Weakness 04/12/2024 07/08/2024 Abscess 06/03/2022 07/07/2023 Class 1 obesity due to exces s calories with serious comorbidity and body mass index (BMI) of 32.0 to 32.9 in adult 06/03/2021 06/07/2022 Chronic kidney disease, stage II (mild) 05/15/2018 06/03/2021 Encounters Date Type Department Care Team Description 11/15/2024 Orders Only [facility] [address] [place] [phone] Pipo Richardson MD Aftercare following surgery of the circulatory system (Primary Dx); Stenosis of right carotid artery; Occlusion of left carotid artery; Subclavian artery stenosis, left 11/14/2024 3:00 PM CDT Office Visit [facility] [address] [place] [phone] Tabitha Ortez NP Atherosclerosis of jackson artery of both lower extremities with intermittent claudication (Primary Dx); Carotid artery calcification, unspecified laterality; Bilateral carotid artery stenosis; Numbness and tingling of left upper extremity 11/14/2024 1:44 PM CDT - 11/14/2024 11:59 PM CDT Hospital Encounter [facility] [address] [place] [phone] Aftercare following surgery of the circulatory system Discharge Disposition: Discharge to home or self care 11/14/2024 1:43 PM CDT - 11/14/2024 11:59 PM CDT Hospital Encounter [facility] [address] [place] [phone] Aftercare following surgery of the circulatory system Discharge Disposition: Discharge to home or self care 11/08/2024 10:45 AM SURGEON/PRESIDENT Office Visit [facility] [address] [phone] Maryellen De Souza NP Chronic obstructive pulmonary disease with acute exacerbation (HCC) (Primary Dx); Pneumonia due to infectious organism, unspecified laterality, unspecified part of lung 10/26/2024 Nurse Triage [facility] Medicine [address] [facility] [address] [place] [phone] Hayden Oreilly MD 10/25/2024 Orders Only [address] [phone] Cony Caba NP 10/25/2024 Nurse Triage [facility] [address] [facility] [address] [place] [address] Hayden Orelily MD 10/25/2024 Telephone [facility] [address] [facility] [address] [place] [address] Hayden Oreilly MD LAVELL Questions 10/18/2024 Telephone [facility] [address] [facility] [address] [place] [address] Hayden Oreilly MD Medication Request 10/18/2024 Telephone [facility] [address] [facility] [address] [place] [address] Hayden Oreilly MD Medical Question/Miscellaneous 10/16/2024 3:15 PM SURGEON/PRESIDENT [facility] Visit [facility] [address] [place] [phone] Tamar Carpio PA Shortness of breath (Primary Dx); Cough, unspecified type 10/16/2024 Nurse Triage [facility] [address] [facility] [address] [place] [address] Hayden Oreilly MD 2024 Telephone [facility] [address] [facility] [address] [place] [address] Hayden Oreilly MD Forms Request 10/14/2024 Telephone [facility] [address] [facility] [address] [place] [address] Hayden Oreilly MD Medical Question/Miscellaneous 10/03/2024 Telephone [facility] [address] [facility] [address] [place] [address] Hayden Oreilly MD Referral Request 09/23/2024 11:55 AM SURGEON/PRESIDENT Ancillary Procedure [facility] [address] [place] [phone] Bronchitis 09/23/2024 11:45 AM SURGEON/PRESIDENT Office Visit [facility] [address] [place] [phone] Tamar Carpio PA Bronchitis (Primary Dx); Strep throat 09/23/2024 Telephone [facility] [address] [phone] Sheree Gomez NP 09/23/2024 Nurse Triage [facility] [address] [phone] Hayden Oreilly MD 09/12/2024 9:30 AM SURGEON/PRESIDENT Procedure visit [facility] [address] [phone] Myrna Gamboa NP Bilateral impacted cerumen (Primary Dx) 09/10/2024 Orders Only [facility] Health Information Management [address] [place] [phone] Scanning, Provider 09/09/2024 Telephone [facility] [address] [phone] Hayden Oreilly MD Medical Question/Miscellaneous from Last 3 Months Immunizations Immunization Administration [...] Comments Hypertension Hyperlipidemia Thyroid disease Osteoporosis Cancer (HCC) Throat COPD (chronic obstructive pulmonary disease) [...] drink = 0.6 oz pur e alcohol) [facility] [employer] Answer Date Recorded In the past 12 months has [employer], gas, oil, or water [employer] threatened to shut off services in your [...] often do you attend chur ch or quaker services? Never 05/09/2024 Do you belong to any clubs o r organizations such as yarsani groups, unions, fraternal or athletic groups, or [...] any time in the past 12 m [facility], were you homeless or living in a half-way (including now)? No 05/09/2024 Personal Safety Answer Date Recorded Have you ever been in or are you currently in a harmful physical or emotional relationship or is someone making you feel afraid or unsafe? 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 SURGEON/PRESIDENT Gender Identity Not on file Sexual Orientation Not on file Obstetrics History Last Filed Vital Signs Vital Sign Reading Time Taken Comments Blood Pressure 96/65 11/14/2024 3:12 PM CDT Pulse 95 11/14/2024 3:12 PM CDT Temperature 36.7 C (98 F) 10/16/2024 2:39 PM SURGEON/PRESIDENT Respiratory Rate 20 11/08/2024 10:27 AM SURGEON/PRESIDENT Oxygen Saturation 94% 11/08/2024 10:27 AM SURGEON/PRESIDENT Inhaled Oxygen Concentration - - Weight 78.5 kg (173 lb) 11/14/2024 3:12 PM CDT Height 160 cm (5' 3 ) 11/14/2024 3:12 PM CDT Body Mass Index 30.65 11/14/2024 3:12 PM CDT Plan of Treatment Health Maintenance Due Date [...] history exists Medical Devices Implanted Type Area Veterinary Technician Assistant Device Identifier Shelf Expiration Date Model / Serial / Lot [employer] Peripheral Vascular Lifestream 8mm 37mm 80cm Balloon Expandable Low Profile Cover [id number] - [id number] Implanted:Qty: 1 on 02/27/2024 by Pipo Richardson MD at [facility] [employer] 10/04/2024 [id number] / / [id number] [employer] Per[employer]ascular Lifestream 8mm 37mm 80cm Balloon Expandable Low Profile Cover [id number] - [id number] Implanted:Qty: 1 on 02/27/2024 by Pipo Richardson MD at [facility] [employer] 09/03/2025 [id number] / / [id number] [employer] System Closure Repair Femoral Artery Suture Mediated Perclose Prostyle 84739-51 - [id number] Implanted:Qty: 1 on 02/27/2024 by Pipo Richardson MD at [facility] [employer] 11/01/2025 [id number] / / [id number] [employer] System Closure Repair Femoral Artery Suture Mediated Perclose Prostyle 31317-74 - [id number] Implanted:Qty: 1 on 02/27/2024 by Pipo Richardson MD at [facility] [employer] 11/01/2025 [id number] / / [id number] Procedures Procedure Name Priority Date/Time Associated Diagnosis Comments US TONEY Schedule Routine, Read Routine (OP Routine) 11/14/2024 3:16 PM CDT Aftercare following surgery of the circulatory system US DUPLEX SCAN OF AORTA: INFERIOR VENA CAVA, ILIAC, COMPLETE Routine 11/14/2024 3:16 PM CDT Aftercare following surgery of the circulatory system XR CHEST 1 VIEW Schedule Routine, Read Routine (OP Routine) 10/20/2024 8:26 AM SURGEON/PRESIDENT POC INFLUENZA A/B, COVID-19 ANTIGEN Routine 10/16/2024 2:45 PM SURGEON/PRESIDENT Cough, unspecified type POCT RAPID RSV Routine 10/16/2024 2:44 PM SURGEON/PRESIDENT Cough, unspecified type XR CHEST PA LATERAL 2 VIEWS Schedule SARAH, Read SARAH (Appt Today, Awaiting Results) 09/23/2024 12:00 PM SURGEON/PRESIDENT Bronchitis POCT RAPID RSV Routine 09/23/2024 11:27 AM SURGEON/PRESIDENT Bronchitis POC INFLUENZA A/B, COVID-19 ANTIGEN Routine 09/23/2024 11:27 AM SURGEON/PRESIDENT Bronchitis POCT RAPID STREP Routine 09/23/2024 11:1 9 AM SURGEON/PRESIDENT Bronchitis Strep throat [place] REMOVAL IMPACTED CERUMEN IRRIGATION/LVG UNILAT Routine 09/12/2024 9:30 AM SURGEON/PRESIDENT Bilateral impacted cerumen SCAN - RADIOLOGY/IMAGING 09/10/2024 from Last 3 Months Results * US TONEY (11/14/2024 3:16 PM CDT) Anatomical Region Laterality Modality Vascular N/A Ultrasound 11/14/2024 2:26 PM CDT Narrative 11/15/2024 9:45 AM CDT Lower Extremity Arterial Doppler Report Patient Name: SARAI BERNARD E : 1940 Study Date: 11/14/2024 2:26:00 PM Gender: F Licensed Practical Nurse: Nader Moreira RDMS Demetria Ref Provider: PIPO RICHARDSON Quality: Adequate Order Provider: PIPO RICHARDSON PROCEDURES: Arterial Report: Ankle - Brachial Index Doppler exam. INDICATIONS: Z48.812 Encounter for surgical aftercare following surgery on the circulatory system. HISTORY: s/p BA/Stent Bilateral KELSEY 02-27-2024. Previous Smoker, Hypertension, BLE Claudication. COMPARISONS: The previous exam was completed on 05-15-2024. Rt TONEY = 0.72 Lt TONEY = 0.48. MEASUREMENTS: Right Value Left Value Rt Brachial Pressure 144 mmHg Lt Brachial Pressure 107 mmHg Rt FISHER EEL SPEAR Pressure 99 mmHg Lt FISHER EEL SPEAR Pressure 84 mmHg Rt DPA Pressure 109 mmHg Lt DPA Pressure 69 mmHg Rt 1st Digit Pressure 82 mmHg Lt 1st Digit Pressure 37 mmHg Rt PT TONEY Resting 0.69 Lt PT TONEY Resting 0.58 Rt DP TONEY Resting 0.76 Lt DP TONEY Resting 0.48 Rt Digit 1/Arm Index 0.57 Lt Digit 1/Arm Index 0.26 FINDINGS: Right Posterior Tibial Artery Analysis: The posterior tibial waveform is monophasic. Right Dorsal Pedis Artery Analysis: The anterior tibial waveform is multiphasic. Right Digits: Normal right digit waveform. Left Posterior Tibial Artery Analysis: The posterior tibial waveform is monophasic. Left Dorsal Pedis Artery Analysis: The anterior tibial waveform is monophasic. Left Digits: The left digit waveform is dampened. - CONCLUSIONS: 1. Right ankle-brachial index of 0.76. 2. Left ankle-brachial index of 0.58. 3. 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 ATTESTATION: I have reviewed and interpreted the pertinent images and measurements of this study. I attest to the conclusions in the final report that is provided above. Electronically Signed By: Jarad Richardson MD 11/15/2024 9:40:44 AM CDT Procedure Note Jarad Richardson MD - 11/15/2024 Lower Extremity Arterial Doppler Report Patient Name: SARAI BERNARD E : 1940 Study Date: 11/14/2024 2:26:00 PM Gender: F Licensed Practical Nurse: Nader Moreira RDMS, RVT Ref Provider: PIPO RICHARDSON Quality: Adequate Order Provider: PIPO RICHARDSON PROCEDURES: Arterial Report: Ankle - Brachial Index Doppler exam. INDICATIONS: Z48.812 Encounter for surgical aftercare following surgery on thecirculatory system. HISTORY: s/p BA/Stent Bilateral KELSEY 02-27-2024. Previous Smoker, Hypertension, BLE Claudication. COMPARISONS: The previous exam was completed on 05-15-2024. Rt TONEY = 0.72 Lt TONEY = 0.48. MEASUREMENTS: Right Value Left Value Rt Brachial Pressure 144 mmHg Lt Brachial Pressure 107 mmHg Rt FISHER EEL SPEAR Pressure 99 mmHg Lt FISHER EEL SPEAR Pressure 84 mmHg Rt DPA Pressure 109 mmHg Lt DPA Pressure 69 mmHg Rt 1st Digit Pressure 82 mmHg Lt 1st Digit Pressure 37 mmHg Rt PT TONEY Resting 0.69 Lt PT TONEY Resting 0.58 Rt DP TONEY Resting 0.76 Lt DP TONEY Resting 0.48 Rt Digit 1/Arm Index 0.57 Lt Digit 1/Arm Index 0.26 FINDINGS: Right Posterior Tibial Artery Analysis: The posterior tibial waveform is monophasic. Right Dorsal Pedis Artery Analysis: The anterior tibial waveform is multiphasic. Right Digits: Normal right digit waveform. Left Posterior Tibial Artery Analysis: The posterior tibial waveform is monophasic. Left Dorsal Pedis Artery Analysis: The anterior tibial waveform is monophasic. Left Digits: The left digit waveform is dampened. - CONCLUSIONS: 1. Right ankle-brachial index of 0.76. 2. Left ankle-brachial index of 0.58. 3. Ankle-brachial index of 0.5-0.8 is consistent with claudication diseaseand moderate occlusive arterial disease in the bilateral lower extremities. ATTESTATION: I have reviewed and interpreted the pertinent images and measurements ofthis study. I attest to the conclusions in the final report that is provided above. Electronically Signed By: Jarad Richardson MD 11/15/2024 9:40:44 AM CDT us Pipo Richardson MD IMG US PROCEDURES Final Re sult * US Duplex Scan of Aorta; Inferior Vena Cava, Iliac, Complete (11/14/2024 3:16 PM CDT) Anatomical Region Laterality Modality Vascular Ultrasound 11/14/2024 1:55 PM CDT Narrative 11/15/2024 9:44 AM CDT Abdominal Aortic Duplex Ultrasound Report Patient Name: SARAI BERNARD E : 1940 Study Date: 11/14/2024 1:55:18 PM Gender: F Licensed Practical Nurse: Nader Moreira Provider: PIPO RICHARDSON Quality: Adequate Order Provider: PIPO RICHARDSON PROCEDURES: Arterial Report: Duplex ultrasound imaging of the abdominal aorta. INDICATIONS: Z48.812 Encounter for surgical aftercare following surgery on the circulatory system. HISTORY: follow up s/p BA/Stent Bilateral KELSEY on 02-27-2024. COMPARISONS: The previous exam was completed on 05-15-2024. MEASUREMENTS: Velocities Value Aorta Prx PSV 64.00 cm/sec Aorta Mid PSV 65.00 cm/sec Aorta Dst PSV 62.00 cm/sec Rt Com Iliac Prx PSV 139.00 cm/sec Rt Com Iliac Dst PSV 247.00 cm/sec Rt Ext Iliac Prx PSV 167.00 cm/sec Rt Ext Iliac Mid PSV 232.00 cm/sec Rt Ext Iliac Dst PSV 185.00 cm/sec Lt Com Iliac Prx PSV 67.00 cm/sec Lt Com Iliac Dst PSV 430.00 cm/sec Lt Ext Iliac Prx PSV 163.00 cm/sec Lt Ext Iliac Mid PSV 165.00 cm/sec Lt Ext Iliac Dst PSV 194.00 cm/sec STENTS: Velocities Value Location ? Right KELSEY Proximal to KELSEY Mid Location 2 ? Left KELSEY Proximal to KELSEY Mid MEASUREMENTS: FINDINGS: Study Quality: Technically difficult/limited due to overlying bowel gas and patient body habitus. Difficult to visualize bilateral KELSEY stents. Abdominal Aorta: Right KELSEY Mid = 106 cm/s Left KELSEY Mid = 88 cm/s. CONCLUSIONS: 1. Limited exam due to bowel gas and body habitus 2. Right common iliac with moderate 50-75% stenosis. 3. Left common iliac with severe greater than 75% stenosis. ATTESTATION: I have reviewed and interpreted the pertinent images and measurements of this study. I attest to the conclusions in the final report that is provided above. Electronically Signed By: Jarad Richardson MD 11/15/2024 9:38:41 AM CDT Procedure Note Jarad Richardson MD - 11/15/2024 Abdominal Aortic Duplex Ultrasound Report Patient Name: SARAI BERNARD E : 1940 Study Date: 11/14/2024 1:55:18 PM Gender: F Licensed Practical Nurse: Nader Moreira Provider: PIPO RICHARDSON Quality: Adequate Order Provider: PIPO RICHARDSON PROCEDURES: Arterial Report: Duplex ultrasound imaging of the abdominal aorta. INDICATIONS: Z48.812 Encounter for surgical aftercare following surgery on thecirculatory system. HISTORY: follow up s/p BA/Stent Bilateral KELSEY on 02-27-2024. COMPARISONS: The previous exam was completed on 05-15-2024. MEASUREMENTS: Velocities Value Aorta Prx PSV 64.00 cm/sec Aorta Mid PSV 65.00 cm/sec Aorta Dst PSV 62.00 cm/sec Rt Com Iliac Prx PSV 139.00 cm/sec Rt Com Iliac Dst PSV 247.00 cm/sec Rt Ext Iliac Prx PSV 167.00 cm/sec Rt Ext Iliac Mid PSV 232.00 cm/sec Rt Ext Iliac Dst PSV 185.00 cm/sec Lt Com Iliac Prx PSV 67.00 cm/sec Lt Com Iliac Dst PSV 430.00 cm/sec Lt Ext Iliac Prx PSV 163.00 cm/sec Lt Ext Iliac Mid PSV 165.00 cm/sec Lt Ext Iliac Dst PSV 194.00 cm/sec STENTS: Velocities Value Location ? Right KELSEY Proximal to KELSEY Mid Location 2 ? Left KELSEY Proximal to KELSEY Mid MEASUREMENTS: FINDINGS: Study Quality: Technically difficult/limited due to overlying bowel gas and patient bodyhabitus. Difficult to visualize bilateral KELSEY stents. Abdominal Aorta: Right KELSEY Mid = 106 cm/s Left KELSEY Mid = 88 cm/s. CONCLUSIONS: 1. Limited exam due to bowel gas and body habitus 2. Right common iliac with moderate 50-75% stenosis. 3. Left common iliac with severe greater than 75% stenosis. ATTESTATION: I have reviewed and interpreted the pertinent images and measurements ofthis study. I attest to the conclusions in the final report that is provided above. Electronically Signed By: Jarad Richardson MD 11/15/2024 9:38:41 AM CDT Pipo Richardson MD IMG US PROCEDURES Final Re sult * XR Chest 1 View (10/20/2024 8:26 AM SURGEON/PRESIDENT) Anatomical Region Laterality Modality Body, Chest N/A Radiographic Maame ging Historical Provider IMG XR PROCEDURES Edited Result - Final * POC Influenza A/B, COVID-19 antigen (10/16/2024 2:45 PM SURGEON/PRESIDENT) Influenza A Ag, POC Negative Negative [facility] Influenza B Ag, POC Negative Negative [facility] COVID-19 Ag POC Presumptive Negative Presumptive Negative, Invalid [facility] Nasopharyngeal 10/16/2024 2: 45 PM SURGEON/PRESIDENT Fazillah Jujuiz PA POINT OF CARE TEST ORDERABLES F inal Result [facility] [address] [address] * POCT rapid RSV (10/16/2024 2:44 PM SURGEON/PRESIDENT) Rapid RSV, POC Negative Negative Lot Number [id number] QC Control Line Acceptable Swab 10/16/2024 2:44 PM SURGEON/PRESIDENT Fazillah Faiz PA POINT OF CARE TEST ORDERABLES F inal Result * XR Chest Pa Lateral 2 Views (09/23/2024 12:00 PM SURGEON/PRESIDENT) Anatomical Region Laterality Modality Body, Chest N/A Computed Radiogr aphy 09/23/2024 1:09 PM SURGEON/PRESIDENT Narrative 09/23/2024 1:10 PM SURGEON/PRESIDENT EXAM DESCRIPTION: XR CHEST PA LATERAL 2 [...] Xavier Rios D.O. PS T: Report ID: [id number] Reading Location: [place] [address] Procedure Note Xavier Rios, - 09/23/2024 EXAM DESCRIPTION: XR CHEST PA [...] Xavier Rios D.O. PS T: Report ID: [id number] Reading Location: [id number] Tamar MACE IMG XR PROCEDURES Final Result * POC Influenza A/B, COVID-19 antigen (09/23/2024 11:27 AM SURGEON/PRESIDENT) Pathologist [facility] Influenza A Ag, POC Negative Negative [facility] Influenza B Ag, POC Negative Negative [facility] COVID-19 Ag POC Presumptive Negative Presumptive Negative, Invalid [facility] Nasopharyngeal 09/23/2024 11 :27 AM SURGEON/PRESIDENT Tamar MACE POINT OF CARE TEST ORDERABLES F inal Result [facility] [address] [address] * POCT rapid RSV (09/23/2024 11:27 AM SURGEON/PRESIDENT) [facility] Rapid RSV, POC Negative Negative Lot Number [id number] QC Control Line Acceptable Swab 09/23/2024 11:2 7 AM SURGEON/PRESIDENT Tamar MACE POINT OF CARE TEST ORDERABLES F inal Result * (ABNORMAL) POCT rapid strep A (09/23/2024 11:19 AM SURGEON/PRESIDENT) [facility] Rapid Strep A, POC Positive(A ) Negative Swab 09/23/2024 11:1 9 AM SURGEON/PRESIDENT Tamar MACE POINT OF CARE TEST ORDERABLES E dited Result - Final * [place] REMOVAL IMPACTED CERUMEN IRRIGATION/LVG UNILAT (09/12/2024 9:30 AM SURGEON/PRESIDENT) Narrative Myrna Gamboa NP - 09/12/2024 9:30 AM SURGEON/PRESIDENT Myrna Gamboa NP 09/12/2024 10:47 AM Ear [...] well with no immediate complications Myrna Gamboa HOME OFFICE REPRESENTATIVE IN CLINIC/BEDSIDE KVNG RAMIREZ Final Result * SCAN - RADIOLOGY/IMAGING (09/10/2024) Anatomical Region Laterality Modality Other Provider Scanning Final Result from Last 3 Months Insurance DEVOTED MEDICARE O Advance Directives For more information, please contact: [phone] * Full Code (Latest Code Status on File) Date Activated Date Inactivated Comments 06/03/2022 1:32 PM 06/05/2022 3:52 PM Care Teams Internet Designer Relationship Specialty Start Date End Date Hayden Oreilly MD [address] [place] [address] PCP - General Family Medicine 01/31/19 Pipo Richardson MD [address] [place] [address] Surgeon Vascular Surgery 02/27/24
--- OUTSIDE RECORDS SUMMARY | 2024-11-17 11:41 | XMS_ITS | Encounter Summary ---
Author Organization [facility] Healthcare Address [address] [place] [address] Care Team Providers Care Boat Finisher Name Role Phone Hayden Oreilly MD Primary Care Provi erinn Pipo Richardson MD Unavailable [phone] Reason for Visit * Reason Onset Date Comments LAVELL Questions 10/25/2024 Encounter Details Date Type Department Care Team (Late st Contact Info) Description 10/25/2024 Telephone [facility] Medical Group Family Medicine [address] [place] [address] Hayden Oreilly MD [address] [place] [address] LAVELL Questions Social History Tobacco Use Types Packs/Day Years Used Date Smoking Tobacco: Former Cigarettes Q uit: 09/04/1992 Smokeless Tobacco: Never Comments:Quit 20 years ago Alcohol Use Standard Drinks/Week Comments Not Currently 0 (1 standard drink = 0.6 oz pur e alcohol) [facility] Utilities Answer Date Recorded In the past 12 months has [employer] electric, gas, oil, or water company threatened [...] often do you attend chur ch or sikh services? Never 05/09/2024 Do you belong to any clubs o r organizations such as oriental orthodox groups, unions, fraternal or athletic groups, or [...] any time in the past 12 m [facility], were you homeless or living in a usp (including now)? No 05/09/2024 Personal Safety Answer Date Recorded Have you ever been in or are you currently in a harmful physical or emotional relationship or is someone making you feel afraid or unsafe? 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 ASPHALT SMOOTHER Gender Identity Not on file Sexual Orientation Not on file documented as of this encounter Miscellaneous Notes * Telephone Encounter - Sophy Francois - 10/28/2024 10:11 AM CST Call Back Caller???s Concern: Patient called to cancel appt stating she is currently hospitalized, will reschedule when discharged. Does message need to be routed? Yes-FYI Only ALT SMOOTHER * Telephone Encounter - Jessica Stapleton MA - 10/25/2024 10:29 AM CST Records requested. Patient is aware. ALT SMOOTHER * Telephone Encounter - Myrna Gamboa NP - 10/25/2024 9:35 AM ASPHALT SMOOTHER We do not have those records, but make sure she is eating before she takes her antibiotic and drinking plenty of water. ALT SMOOTHER * Telephone Encounter - Yumiko Blue - 10/25/2024 9:20 AM CST LAVELL Questions (Message from [facility] Access Center-Aluminum Siding Installer): Has patient been discharged at time of call? Yes Date Admitted: 10/21/24 Date Discharged: 10/23/24 Facility Admitted To: [facility] [place] Reason for Stay? Pneumonia If prescribed new [...] message need to be routed? Yes-Action Needed ALT SMOOTHER documented in this encounter Plan of Treatment Not on file documented as of this encounter Visit Diagnoses Not on filedocumented in this encounter Care Teams Boat Finisher Relationship Specialty Start Date End Date Hayden Oreilly MD [address] [facility] [address] [address] PCP - General Family Medicine 01/31/19 Pipo Richardson MD [address] [place] [address] Surgeon Vascular Surgery 02/27/24 documented as of this encounter
--- OUTSIDE RECORDS SUMMARY | 2024-11-17 11:41 | XMS_ITS | Referral Summary ---
Author Organization [facility] Address [address] [place] [address] Care Team Providers Care Level Glass Forming Machine Operator Name Role Phone Hayden Oreilly MD Primary Care Provi erinn Source Comments [facility],non-owned Affiliates and Associated Physician Practices is amultiple site organization consisting of ambulatory clinics and hospital sitesin [place], [place], [place] and [place]. This disclosure is being madepursuant to the Care Everywhere program and may not contain all information available regarding this patient. Last updated 18.[facility] Encounters Date Type Department Care Team Description 11/07/2024 1:10 AM [facility] Clinical Support [facility] Physician Group - Cardiology [address] [address] Cerebrovascular accident (CVA), unspecified mechanism (HCC) 10/03/2024 Travel 08/29/2024 1:10 AM [facility] Clinical Support [facility]ician [facility] - Cardiology [address] [address] Cerebrovascular accident (CVA), unspecified mechanism (HCC) from [...] Recorded Patient Health Questionnaire-2 Score 0 04/14/2024 [facility] - Occupational Stress [...] place to sleep or slept in a nursing home (including now)? No 04/12/2024 Sex and [...] Care Team (Late st Contact Info) Description 11/26/2024 10:20 AM CDT Office Visit [facility] - Cardiology [address], [address] [address] Katie Quiles MD [address] [address] 12/12/2024 1:10 AM CDT Clinical Support [facility] - Cardiology [address], [address] [address] 01/16/2025 1:10 AM CDT Clinical Support [facility] - Cardiology [address], [address] [address] 02/20/2025 1:10 AM CDT Clinical Support [facility] - Cardiology [address], [address] [address] 03/27/2025 1:10 AM CDT Clinical Support [facility] - Cardiology [address], [address] [address] 05/01/2025 1:10 AM CDT Clinical Support [facility] - Cardiology [address] [facility] [place] [address] 06/05/2025 1:10 AM CDT Clinical Support [facility]ician [facility] - Cardiology [address] [facility] [address] [place] [address] Medical Devices Implanted Type Area Heating Operators Engineer Device Identifier Shelf Expiration Date Model / Serial / Lot Rcdr Crd Linq Ii Ins - [id number] Implanted:Qty: 1 on 04/15/2024 by Katie Quiles MD at [facility] [employer] [id number] 08/22/2025 LNQ22 / [id number] / [id number] Procedures Procedure Name Priority Date/Time Associated Diagnosis Comments CARDIAC PROCEDURE ORDER 11/04/2024 CARDIAC PROCEDURE ORDER 09/30/2024 ID ILR DEVICE INTERROGAT REMOTE Routine 09/08/2024 6:40 PM CAFE COOK Cerebrovascular accident (CVA), unspecified mechanism (HCC) from Last 3 Months Results * CARDIAC PROCEDURE ORDER (11/04/2024) Only the most recent of2 resultswithin the time period is included. Narrative 11/04/2024 Ordered by an unspecified provider. Scanned Document CARDIAC SERVICES ORD ERABLES * ID ILR DEVICE INTERROGAT REMOTE (09/08/2024 6:40 PM CAFE COOK) Narrative Herman Bailey MD - 09/08/2024 6:40 PM CAFE COOK Herman Bailey MD 09/08/2024 6:41 PM Dear [...] 4:25 PM 04/15/2024 7:23 PM Care Teams Level Glass Forming Machine Operator Relationship Specialty Start Date End Date Hayden Oreilly MD [address] [address] PCP - General Family Medicine 08/17/21
--- OUTSIDE RECORDS SUMMARY | 2024-11-17 11:41 | XMS_ITS | Referral Summary ---
Author Organization [facility] [place] [address] Address [address] [place] [address] Care Team Providers Care Manager Trade Marketing Name Role Phone Hayden Oreilly MD Primary Care Provi erinn Pipo Richardson MD Unavailable [phone] Encounters Date Type Department Care Team Description 11/15/2024 Orders Only [facility] Medical Group Vascular and Vein Surgery [address] [place] [address] [address] [place] [address] Pipo Richardson MD Aftercare following surgery of the circulatory system (Primary Dx); Stenosis of right carotid artery; Occlusion of left carotid artery; Subclavian artery stenosis, left 11/14/2024 3:00 PM CDT Office Visit [facility] Medical [facility] [address] [place] [address] [address] [place] [address] Tabitha Ortez NP Atherosclerosis of mcgrath artery of both lower extremities with intermittent claudication (Primary Dx); Carotid artery calcification, unspecified laterality; Bilateral carotid artery stenosis; Numbness and tingling of left upper extremity 11/14/2024 1:43 PM CDT - 11/14/2024 11:59 PM CDT Hospital Encounter [facility] Medical Office Building [address] [place] [address] [address] [place] [address] Aftercare following surgery of the circulatory system Discharge Disposition: Discharge to home or self care 11/14/2024 1:44 PM CDT - 11/14/2024 11:59 PM CDT Hospital Encounter [facility] Medical Office Building [address] [address] Aftercare following surgery of the circulatory system Discharge Disposition: Discharge to home or self care 11/08/2024 10:45 AM CARRIAGE SETTER Office Visit [facility] [address] [facility] [address] [place] [address] Maryellen De Souza NP Chronic obstructive pulmonary disease with acute exacerbation (HCC) (Primary Dx); Pneumonia due to infectious organism, unspecified laterality, unspecified part of lung 10/26/2024 Nurse Triage [facility] [address] [facility] [address] [place] [address] Hayden Oreilly MD 10/25/2024 Orders Only [address] [phone] Cony Caba NP 10/25/2024 Nurse Triage [facility] [address] [facility] [address] [place] [address] Hayden Oreilly MD 10/25/2024 Telephone [facility] [address] [facility] [address] [place] [address] Hayden Oreilly MD LAVELL Questions 10/18/2024 Telephone [facility] [address] [facility] [address] [place] [address] Hayden Oreilly MD Medication Request 10/18/2024 Telephone [facility] [address] [facility] [address] [place] [address] Hayden Oreilly MD Medical Question/Miscellaneous 10/16/2024 3:15 PM CARRIAGE SETTER Office Visit [facility] at [address] [place] [phone] Tamar Carpio PA Shortness of breath (Primary Dx); Cough, unspecified type 10/16/2024 Nurse Triage [facility] [address] [facility] [address] [place] [address] Hayden Oreilly MD 2024 Telephone [facility] [address] [facility] [address] [place] [address] Hayden Oreilly MD Forms Request 10/14/2024 Telephone [facility] [address] [facility] [address] [place] [address] Hayden Oreilly MD Medical Question/Miscellaneous 10/03/2024 Telephone [facility] [address] [facility] [address] [place] [address] Hayden Oreilly MD Referral Request 09/23/2024 Telephone [facility] [address] [place] [address] Sheree Gomez NP 09/23/2024 11:55 AM CARRIAGE SETTER Ancillary Procedure [facility] [address] [place] [address] Bronchitis 09/23/2024 11:45 AM CARRIAGE SETTER Office Visit [facility] [place] [address] [place] [address] Tamar Carpio PA Bronchitis (Primary Dx); Strep throat 09/23/2024 Nurse Triage [facility] [address] [facility] [address] [place] [address] Hayden Oreilly MD 09/12/2024 9:30 AM CARRIAGE SETTER Procedure visit [facility] [address] [facility] [address] [place] [address] Myrna Gamboa NP Bilateral impacted cerumen (Primary Dx) 09/10/2024 Orders Only [facility] [place] Information Management [address] [place] [address] Scanning, Provider 09/09/2024 Telephone [facility] [address] [address] Hayden Oreilly MD Medical Question/Miscellaneous from Last 3 Months Allergies No known [...] or shortness of breath 90 mL 5 Active fluticasone-umec lidin-vilanter (Trelegy Ellipta) 100-62.5-25 mcg inhalerIndicatio ns:Bronchospasm Prevention with COPD Inhale 1 puff daily 3 each 3 Active Additional Information Patient not taking.Reported on 11/14/2024 valsartan-hydroc hlorothiazide (DIOVAN-HCT) 160-25 mg per tablet TAKE 1 TABLET BY MOUTH EVERY DAY 90 tablet 1 Active levothyroxine (SYNTHROID) 125 mcg tablet TAKE 1 TABLET BY MOUTH EVERY DAY IN THE MORNING ON AN EMPTY STOMACH 90 tablet 1 Active albuterol 2.5 mg /3 mL (0.083 [...] 10/16/2024 Assessment & Plan (10/16/2024 3:17 PM CARRIAGE SETTER): O2 saturation between 92-94% at rest Recommended ER evaluation, patient declined Will treat for possible COPD exacerbation again with prednisone Albuterol as needed Already recently treated with prednisone, z pack Please see your PCP or cooking instructor in the future for recurrent COPD exacerbations Cough 10/16/2024 Assessment & Plan (10/16/2024 3:16 PM CARRIAGE SETTER): Mucinex as expectorant Albuterol nebulizer Prednisone Likely d/t COPD exacerbation Bronchitis 09/23/2024 Assessment & Plan (09/23/2024 11:51 AM CARRIAGE SETTER): Covid and flu test negative Wheezing throughout [...] 09/23/2024 Assessment & Plan (09/23/2024 12:04 PM CARRIAGE SETTER): Rapid strep positive Initiate Zithromax as this [...] carotid stenosis and was being monitored by [facility] however are no longer accepting her insurance [...] brachial pulses with equal and good hand commercial lines insurance agent to bilateral upper extremities. Plan: Symptoms are [...] (chronic obstructive pulmonary disease) 05/2024 Atherosclerosis of mcgrath ar mian of both lower extremities with [...] drink = 0.6 oz pur e alcohol) [facility] [employer] Answer Date Recorded In the past 12 months has [employer], [employer], or water [employer] threatened to shut off services in your [...] 05/09/2024 How often do you attend chur or congregational services? Never 05/09/2024 Do you belong to any clubs o r organizations such as yazidi groups, unions, fraternal or athletic groups, or [...] any time in the past 12 [facility], were you homeless or living [...] on file Legal Sex Female 1:28 AM CARRIAGE SETTER Gender Identity Not on file Sexual Orientation Not on file Last Filed Vital Signs Vital Sign Reading Time Taken Comments Blood Pressure 96/65 11/14/2024 3:12 PM CDT Pulse 95 11/14/2024 3:12 PM CDT Temperature 36.7 C (98 F) 10/16/2024 2:39 PM CARRIAGE SETTER Respiratory Rate 20 11/08/2024 10:27 AM CARRIAGE SETTER Oxygen Saturation 94% 11/08/2024 10:27 AM CARRIAGE SETTER Inhaled Oxygen Concentration - - Weight 78.5 kg (173 lb) 11/14/2024 3:12 PM CDT Height 160 cm (5' 3 ) 11/14/2024 3:12 PM CDT Body Mass Index 30.65 11/14/2024 3:12 PM CDT Plan of Treatment Not on file Medical Devices Implanted Type Area Deal Architect Device Identifier Shelf Expiration Date Model / Serial / Lot [employer] Peripheral Vascular Lifestream 8mm 37mm 80cm Balloon Expandable Low Profile Cover [id number] - [id number] Implanted:Qty: 1 on 02/27/2024 by Pipo Richardson MD at [facility] [employer] 10/04/2024 [id number] / / [id number] [employer] Peripheral Vascular Lifestream 8mm 37mm 80cm Balloon Expandable Low Profile Cover [id number] - [id number] Implanted:Qty: 1 on 02/27/2024 by Pipo Richardson MD at [facility] [employer] 09/03/2025 [id number] / / [id number] [employer] V[employer] System Closure Repair Femoral Artery Suture Mediated Perclose Prostyle 86923-40 - [id number] Implanted:Qty: 1 on 02/27/2024 by Pipo Richardson MD at [facility] [employer] 11/01/2025 [id number] / / [id number] [employer] System Closure Repair Femoral Artery Suture Mediated Perclose Prostyle 57914-79 - [id number] Implanted:Qty: 1 on 02/27/2024 by Pipo Richardson MD at [facility] [employer] 11/01/2025 [id number] / / [id number] Procedures Procedure Name Priority Date/Time Associated Diagnosis Comments US TONEY Schedule Routine, Read Routine (OP Routine) 11/14/2024 3:16 PM CDT Aftercare following surgery of the circulatory system US DUPLEX SCAN OF AORTA: INFERIOR VENA CAVA, ILIAC, COMPLETE Routine 11/14/2024 3:16 PM CDT Aftercare following surgery of the circulatory system XR CHEST 1 VIEW Schedule Routine, Read Routine (OP Routine) 10/20/2024 8:26 AM CARRIAGE SETTER POC INFLUENZA A/B, COVID-19 ANTIGEN Routine 10/16/2024 2:45 PM CARRIAGE SETTER Cough, unspecified type POCT RAPID RSV Routine 10/16/2024 2:44 PM CARRIAGE SETTER Cough, unspecified type XR CHEST PA LATERAL 2 VIEWS Schedule SARAH, Read SARAH (Appt Today, Awaiting Results) 09/23/2024 12:00 PM CARRIAGE SETTER Bronchitis POCT RAPID RSV Routine 09/23/2024 11:27 AM CARRIAGE SETTER Bronchitis POC INFLUENZA A/B, COVID-19 ANTIGEN Routine 09/23/2024 11:27 AM CARRIAGE SETTER Bronchitis POCT RAPID STREP Routine 09/23/2024 11:1 9 AM CARRIAGE SETTER Bronchitis Strep throat CT REMOVAL IMPACTED CERUMEN IRRIGATION/LVG UNILAT Routine 09/12/2024 9:30 AM CARRIAGE SETTER Bilateral impacted cerumen SCAN - RADIOLOGY/IMAGING 09/10/2024 from Last 3 Months Results * US TONEY (11/14/2024 3:16 PM CDT) Anatomical Region Laterality Modality Vascular N/A Ultrasound 11/14/2024 2:26 PM CDT Narrative 11/15/2024 9:45 AM CDT Lower Extremity Arterial Doppler Report Patient Name: SARAI BERNARD E : 1940 Study Date: 11/14/2024 2:26:00 PM Gender: F Counter Clerk [employer]: Nader Moreira RDMS, T Ref Provider: PIPO RICHARDSON Quality: Adequate Order [...] mmHg Lt Brachial Pressure 107 mmHg Rt TELETYPE CLERK Pressure 99 mmHg Lt TELETYPE CLERK Pressure 84 mmHg Rt DPA Pressure 109 [...] Study Date: 11/14/2024 2:26:00 PM Gender: F Counter Clerk [employer]: Nader Moreira RDMS, RVT Ref Provider: PIPO [...] mmHg Lt Brachial Pressure 107 mmHg Rt TELETYPE CLERK Pressure 99 mmHg Lt TELETYPE CLERK Pressure 84 mmHg Rt DPA Pressure 109 [...] Study Date: 11/14/2024 1:55:18 PM Gender: F Counter Clerk [employer]: Nader Moreira Provider: PIPO RICHARDSON Quality: Adequate [...] Study Date: 11/14/2024 1:55:18 PM Gender: F Counter Clerk [employer]: Nader Moreira Provider: PIPO RICHARDSON Quality: Adequate [...] XR Chest 1 View (10/20/2024 8:26 AM CARRIAGE SETTER) Anatomical Region Laterality Modality Body, Chest N/A Radiographic Maame ging Historical Provider IMAleida XR PROCEDURES Edited Result - Final * POC Influenza A/B, COVID-19 antigen (10/16/2024 2:45 PM CARRIAGE SETTER) Influenza A Ag, POC Negative Negative [facility] Influenza B Ag, POC Negative Negative [facility] COVID-19 Ag POC Presumptive Negative Presumptive Negative, Invalid [facility] Nasopharyngeal 10/16/2024 2: 45 PM CARRIAGE SETTER Tamar MACE POINT OF CARE TEST ORDERABLES F inal Result [facility] [place] [facility] [address] [facility] [address] [place] [address], [facility] * POCT rapid RSV (10/16/2024 2:44 PM CARRIAGE SETTER) Rapid RSV, POC Negative Negative Lot Number [id number] QC Control Line Acceptable Swab 10/16/2024 2:44 PM CARRIAGE SETTER Tamar MACE POINT OF CARE TEST ORDERABLES F inal Result * XR Chest Pa Lateral 2 Views (09/23/2024 12:00 PM CARRIAGE SETTER) Anatomical Region Laterality Modality Body, Chest N/A Computed Radiogr aphy 09/23/2024 1:09 PM CARRIAGE SETTER Narrative 09/23/2024 1:10 PM CARRIAGE SETTER EXAM DESCRIPTION: XR CHEST PA LATERAL 2 [...] Xavier Rios D.O. PS T: Report ID: [id number] Reading Location: [id number] Procedure Note Xavier Rios DO - 09/23/2024 EXAM DESCRIPTION: XR CHEST [...] Xavier Rios D.O. PS T: Report ID: [id number] Reading Location: [place] [address] Tamar MACE IMG XR PROCEDURES Final Result * POC Influenza A/B, COVID-19 antigen (09/23/2024 11:27 AM CARRIAGE SETTER) Influenza A Ag, POC Negative Negative [facility] Influenza B Ag, POC Negative Negative [facility] COVID-19 Ag POC Presumptive Negative Presumptive Negative, Invalid [facility] Nasopharyngeal 09/23/2024 11 :27 AM CARRIAGE SETTER Tamar MACE POINT OF CARE TEST ORDERABLES F inal Result [facility] [address] [address] * POCT rapid RSV (09/23/2024 11:27 AM CARRIAGE SETTER) Rapid RSV, POC Negative Negative Lot Number [id number] QC Control Line Acceptable Swab 09/23/2024 11:2 7 AM CARRIAGE SETTER Tamar MACE POINT OF CARE TEST ORDERABLES F inal Result * (ABNORMAL) POCT rapid strep A (09/23/2024 11:19 AM CARRIAGE SETTER) Rapid Strep A, POC Positive(A ) Negative Swab 09/23/2024 11:1 9 AM CARRIAGE SETTER Tamar MACE POINT OF CARE TEST ORDERABLES E dited Result - Final * CT REMOVAL IMPACTED CERUMEN IRRIGATION/LVG UNILAT (09/12/2024 9:30 AM CARRIAGE SETTER) Narrative Myrna Gamboa NP - 09/12/2024 9:30 AM CARRIAGE SETTER Myrna Gamboa NP 09/12/2024 10:47 AM Ear [...] well with no immediate complications Myrna Gamboa HALFWAY HOUSE COUNSELOR IN CLINIC/BEDSIDE KVNG RAMIREZ Final Result * SCAN - RADIOLOGY/IMAGING (09/10/2024) Anatomical Region Laterality Modality Other us Provider Scanning Final Result from Last 3 Months Insurance DEVOTED MEDICARE PPO Advance Directives For more information, please contact: [phone] * Full Code (Latest Code Status on File) Date Activated Date Inactivated Comments 06/03/2022 1:32 PM 06/05/2022 3:52 PM Care Teams Manager Trade Marketing Relationship Specialty Start Date End Date Hayden Oreilly MD [address] [address] PCP - General Family Medicine 01/31/19 Pipo Richardson MD [address] [address] [address] Surgeon Vascular Surgery 02/27/24
--- OUTSIDE RECORDS SUMMARY | 2024-11-17 11:41 | XMS_ITS | Patient Health Record ---
Author Organization [facility] Address [address] [place], [place] [address] Care Team Providers Care Web Content Producer Name Role Phone NATALIIA THAKUR Unavailable [phone] Hayden Oreilly Unavailable Unavaila ble Allergies No Known Allergies Reason For Referral No Information Plan Of Treatment No Information Insurance Providers Payer Name Payer Address Payer Phone Subscriber Number Group Number Insured Name Patient Relationship to Insured Coverage Start Date Coverage End Date [employer]. [address] [place] [address] [id number] IGOR BERNARD Self - patient is the insured Medical (General) History Medical History History ICD Code Leg/Feet cramps Arthritis Thyroid Disease
--- OUTSIDE RECORDS SUMMARY | 2024-11-17 11:42 | XMS_ITS | Patient Health Summary ---
Author Organization [facility] Address [address] [place] [address] Care Team Providers Care Social Services Aide Name Role Phone Hayden Oreilly MD Primary Care Provi erinn Note from [facility],non-owned Affiliates and Associated Physician Practices is amultiple site organization consisting of ambulatory clinics and hospital sitesin [place], [place], [place] and [place]. This disclosure is being madepursuant to the Care Everywhere program and may not contain all information available regarding this patient. Last updated 18.[facility] Allergies No known active allergies Medications [...] Recorded Patient Health Questionnaire-2 Score 0 04/14/2024 [facility] - Occupational Stress [...] place to sleep or slept in a detention (including now)? No 04/12/2024 Sex and Gender [...] PM CDT Medical Devices Implanted Type Area Zoning Engineer Device Identifier Shelf Expiration Date Model / Serial / Lot Rcdr Crd Linq Ii Ins - [id number] Implanted:Qty: 1 on 04/15/2024 by Katie Quiles MD at [facility] [employer] [id number] 08/22/2025 LNQ22 / [id number] / [id number] Procedures * CARDIAC PROCEDURE ORDER(Performed 11/04/2024) * CARDIAC PROCEDURE ORDER(Performed 09/30/2024) * MA ILR DEVICE INTERROGAT REMOTE(Performed 09/08/2024) Performed for Cerebrovascular accident (CVA), unspecified mechanism (HCC) * MA ILR DEVICE INTERROGAT REMOTE(Performed 08/04/2024) Performed for [...] study patient Results * CARDIAC PROCEDURE ORDER (11/04/2024) Only the most recent of5 resultswithin the time period is included. Narrative 11/04/2024 Ordered by an unspecified provider. Scanned Document CARDIAC SERVICES ORD ERABLES * MA ILR DEVICE INTERROGAT REMOTE (09/08/2024 6:40 PM THERAPY TECH) Narrative Herman Bailey MD - 09/08/2024 6:40 PM THERAPY TECH Herman Bailey MD 09/08/2024 6:41 PM Dear [...] ILR DEVICE INTERROGAT REMOTE (08/04/2024 7:33 PM THERAPY TECH) Narrative Herman Bailey MD - 08/04/2024 7:33 PM THERAPY TECH Herman Bailey MD 08/04/2024 7:33 PM Dear [...] - 115 mg/dL 04/15/2024 6:19 PM CDT [facility] Specimen Type Arterial 04/15/2024 6:19 PM CDT [facility] Blood BLOOD SPECIMEN / Unknown 04/15/2024 3:44 PM CDT 04/15/2024 6:19 PM CDT Miquel London MD LAB - POINT OF CARE ORDERABLES [facility] [address] [place] [address], [facility] [phone] * CCL LOOP RECORDER IMPLANT (04/15/2024 3:38 [...] of3 resultswithin the time period is included. Pathologist [facility] WBC 7.9 4.0 - 10.7 x10E9/L 04/15/2024 5:59 AM CDT [facility] RBC Count 4.33 3.90 - 5.20 x10E12/L 04/15/2024 5:59 AM CDT [facility] Hemoglobin 11.7(L) 11.9 - 15.8 g/dL 04/15/2024 5:59 AM CDT [facility] Hematocrit 37.2 34.8 - 46.1 % 04/15/2024 5:59 AM [facility] MCV 85.9 80.0 - 98.0 fL 04/15/2024 5:59 AM [facility] MCH 27.0 26.7 - 33.6 pg 04/15/2024 5:59 AM [facility] MCHC 31.5(L) 31.7 - 36.3 g/dL 04/15/2024 5:59 AM [facility] RDW-CV 16.1(H) 11.3 - 14.8 % 04/15/2024 5:59 AM [facility] Platelet Count 214 150 - 420 x10E9/L 04/15/2024 5:59 AM [facility] MPV 10.1 7.8 - 11.4 fL 04/15/2024 5:59 AM [facility] Blood BLOOD SPECIMEN / Unknown Lab Venipuncture / Unknown 04/15/2024 4:38 AM CDT 04/15/2024 5:50 AM CDT Miquel London MD LAB - HEMATOLOGY ORD ERABLES [facility] [address] [place] [address], [facility] [phone] * (ABNORMAL) BASIC METABOLIC PANEL (CALCIUM TOTAL) (04/15/2024 4:38 AM CDT) Only the most recent of3 resultswithin the time period is included. BUN 29(H) 7 - 26 mg/dL 04/15/2024 6:16 AM [facility] Creatinine 1.05(H) 0.56 - 0.96 mg/dL 04/15/2024 6:16 AM [facility] Sodium 140 136 - 145 mmol/L 04/15/2024 6:16 AM [facility] Potassium 4.6(H) 3.5 - 4.5 mmol/L 04/15/2024 6:16 AM [facility] Chloride 113(H) 98 - 107 mmol/L 04/15/2024 6:16 AM [facility] CO2 20(L) 22 - 29 mmol/L 04/15/2024 6:16 AM T [facility] Glucose 100 70 - 115 mg/dL 04/15/2024 6:16 AM T [facility] Calcium 9.0 8.4 - 10.2 mg/dL 04/15/2024 6:16 AM [facility] Anion Gap 7 6 - 16 04/15/2024 6:16 AM T [facility] BUN/Creatinine Ratio 28(H) 7 - 23 04/15/2024 6:16 AM [facility] Osmolality Calculated 296(H) 275 - 295 mOsm/kg 04/15/2024 6:16 AM [facility] eGFR by CKD-EPI 52(L) >=90 mL/min/1.7 3 m2 04/15/2024 6:16 AM T [facility] Blood BLOOD SPECIMEN / Unknown Lab Venipuncture / Unknown 04/15/2024 4:38 AM CDT 04/15/2024 5:50 AM CDT Miquel London MD LAB - CHEMISTRY ORDE [facility] Organization Address City/State/ZIP Co de Phone Number [facility] [address] [place] [address], [facility] [phone] * CT Angio Brain And Neck (04/15/2024 [...] is dictated by Nury Green Dr, MD (memory care program resident) I, Asia Holliday MD have personally reviewed and interpreted this examination/study. > Interpreting Provider: Asia Holliday MD on 04/17/2024 2:15 PM Narrative 04/17/2024 2:15 PM CDT PROCEDURE: CT ANGIO BRAIN AND NECK, DATE/TIME OF EXAM: 04/15/2024 12:48 AM, LOCATION [facility] INDICATION: I65.23: Bilateral carotid artery stenosis ADDITIONAL [...] atherosclerosis throughout the course causing areas of xllv-bm-jvqzknst stenosis predominantly in the V2 segment. There [...] DATE/TIME OF EXAM: 04/15/2024 12:48 AM, LOCATION [facility] INDICATION: I65.23: Bilateral carotid artery stenosis ADDITIONAL [...] atherosclerosis throughout the course causing areas of ceun-cn-jatjzwgg stenosis predominantly in the V2 segment. There [...] is dictated by Nury Green Dr, MD (memory care program resident) I, Asia Holliday MD have personally reviewed [...] PACS LVOT VTI 18.672 cm [facility]SM CV FUJ I PACS RV-pedro basal diam 2.697 cm [facility] CV FUJI PACS RVIDd 2.57 cm [facility] CV FUJ I PACS RVOT diam Doppler 1.962 cm [facility] CV FUJI PACS RVOT pk jamshid 90.524 cm/s [facility]SM CV F UJI PACS RVOT VTI 14.859 cm [facility] CV FUJ I PACS LA size 4.092 cm [facility] CV FUJ I PACS RA area 13.384 cm [facility] CV FUJI PACS AR DECEL TIME 1.237 s [facility] CV FUJI PACS AV PHT 0.359 s [facility] CV FUJ I PACS AV pk jamshid regurg 296.214 cm/s [facility] CV FUJI PACS AR VTI 117.788 cm SSM CV [...] 12:19 PM Patient Status: I/P Study Site: [facility] Primary Location: [facility] EStudy Info Technical Quality: Adequate Exam Type: ECHO COMPLETE W BUBBLE STUDY Indications R20.0 - Numbness and tingling R20.2 - Numbness and tingling Procedure(s) * A complete 2D, color Doppler, spectral Doppler, and M-Mode transthoracic echocardiogram was performed. Contrast/Agitated Saline Contrast / Saline: Agitated Saline Amount: 5.00 ml Staff Referring Physician: Miquel London Ordering Provider: Miquel London Attending Physician: Miquel London Project Control Officer: Pravin Gusman Left Ventricle The left ventricle [...] 12:19 PM Patient Status: I/P Study Site: [facility] Primary Location: [facility] EStudy Info Technical Quality: Adequate Exam Type: ECHO COMPLETE W BUBBLE STUDY Indications R20.0 - Numbness and tingling R20.2 - Numbness and tingling Procedure(s) * A complete 2D, color Doppler, spectral Doppler, and M-Modetransthoracic echocardiogram was performed. Contrast/Agitated Saline Contrast / Saline: Agitated Saline Amount: 5.00 ml Staff Referring Physician: Miquel London Ordering Provider: Miquel London Attending Physician: Miquel London Project Control Officer: Pravin Kirstinzoe Left Ventricle The left ventricle is normal [...] Report dictated by Cisco Taylor MD, PhD (memory care program resident). I, Asia Holliday MD have personally reviewed and interpreted this examination/study. > Interpreting Provider: Asia Holliday MD on 04/16/2024 2:34 PM Narrative 04/16/2024 2:34 PM CDT PROCEDURE: MRI BRAIN WO CONTRAST, DATE/TIME OF EXAM: 04/14/2024 12:09 AM, LOCATION [facility] INDICATION: R20.0: Numbness and tingling R20.2: Numbness [...] CONTRAST, DATE/TIME OF EXAM: 04/14/2024 12:09AM, LOCATION [facility] INDICATION: R20.0: Numbness and tingling R20.2: Numbness [...] Report dictated by Cisco Taylor MD, PhD (memory care program resident). I, Asia Holliday MD have personally reviewed and interpreted this examination/study. > Interpreting Provider: Asia Holliday MD on 04/16/2024 2:34 PM Miquel London MD MR ORDERABLES * LIPID PROFILE (04/13/2024 4:30 AM T) Cholesterol Total 145 <200 mg/dL 04/13/2024 5:44 AM [facility] HDL 52 >40 mg/dL 04/13/2024 5:44 AM [facility] Comment: ATP III Classification of HDL Cholesterol: <40 mg/dL: Considered a major risk factor. >60 mg/dL: Considered a negative risk factor. LDL Calculated 78 <100 mg/dL 04/13/2024 5:44 AM [facility] Comment: ATP III Classification of LDL Cholesterol: <100 mg/dL: Optimal 100 - 129 mg/dL: Near Optimal/Above Optimal 130 - 159 mg/dL: Borderline High 160 - 189 mg/dL: High >190 mg/dL: Very High Triglycerides 74 <150 mg/dL 04/13/2024 5:44 AM [facility] Comment: ATP III Classification of Triglycerides: <150 mg/dL: Normal 150 - 199 mg/dL: Borderline High 200 - 400 mg/dL: High >500 mg/dL: Very High Blood BLOOD SPECIMEN / Unknown Lab Venipuncture / Unknown 04/13/2024 4:30 AM CDT 04/13/2024 5:10 AM CDT Miquel London MD LAB - CHEMISTRY KVNG RAMIREZ [facility] [address] [place] [address], [facility] [phone] * BLOOD TYPE VERIFICATION (04/12/2024 9:36 PM CDT) ABO Rh O POS 04/12/2024 10:23 PM CDT [facility] Blood Bank BLOOD SPECIMEN / Unknown Venipuncture / Unknown 04/12/2024 9:36 PM CDT 04/12/2024 10:02 PM CDT Tito Freeman MD LAB - BLOOD BANK ORD ALENA Performing Organization Address City/[facility]/ZIP Co de Phone Number [facility] [address] [place] [address], [place] [phone] * HEMOGLOBIN A1C (04/12/2024 9:35 PM CDT) Hemoglobin A1c 5.6 <=5.6 % 04/13/2024 11:29 AM CDT [facility] Estimated Average Glucose 114 mg/dL 04/13/2024 11:29 AM CDT [facility] Comment: HbA1c Interpretation: Normal : < 5.7% Pre-diabetes: 5.7-6.4% Diabetes: Equal to or greater than 6.5% Test results diagnostic of diabetes should be repeated for confirmation. Treatment target values recommended by ADA and other clinical organizations should be used to evaluate metabolic control in patients. Reference: [place] [employer], Standards of Care in Diabetes [...] London MD LAB - CHEMISTRY KVNG RAMIREZ [address] [address], [facility] [phone] * TROPONIN-I HIGH SENSITIVE REFLEX 1HOUR (04/12/2024 6:02 PM CDT) Troponin I High Sensitive 5 <=14 ng/L 04/12/2024 6:49 PM CDT [facility] Delta Troponin I HS 0 <6 ng/L 04/12/2024 6:49 PM CDT [facility] Blood BLOOD SPECIMEN / Unknown Venipuncture / Unknown 04/12/2024 6:02 PM CDT 04/12/2024 6:10 PM CDT Miquel London MD LAB - CHEMISTRY KVNG RAMIREZ Performing Organization Address City/[facility]/ZIP Co de Phone Number [address] [address], [facility] [phone] * EKG 12-LEAD (04/12/2024 4:42 PM CDT) Ventricular Rate 86 BPM [facility] Atrial Rate 86 BPM [facility] P-R Interval 192 ms [facility] QRS Duration ms 84 ms [facility] Q-T Interval ms 352 ms [facility] QTC Calculation (Bezet) 421 ms [facility] Calculated P [place] 62 degrees SL MUSE Calculated R [place] 59 degrees SL MUSE Calculated T [place] 52 degrees [facility] Interpretation EKG NORMAL SINUS RHYTHM NORMAL ECG NO PREVIOUS ECGS AVAILABLE Confirmed by PELON JOE, SADIA ([id number]) on 04/15/2024 9:05:12 AM [facility] 04/12/2024 4:42 PM CDT 04/15/2024 9:05 AM CDT Tito Freeman MD ECG ORDERABLES Performing Organization Address [facility] Phone Number [facility] * PT-INR [facility] (04/12/2024 4:33 PM CDT) [facility] PT 12.5 12.1 - 14.8 Seconds 04/12/2024 5:00 PM CDT [facility] INR 1.0 See Comment 04/12/2024 5:00 PM CDT [facility] Comment:The suggested therap eutic range for standard coumadin (warfarin) therapy is an INR of 2.0-3.0. For high-risk patients (Mechanical Mitral Valve Prosthesis, etc.), the suggested prophylactic therapeutic range is an INR of 2.5-3.5. Blood BLOOD SPECIMEN / Unknown Venipuncture / Unknown 04/12/2024 4:33 PM CDT 04/12/2024 4:41 PM CDT Tito Freeman MD LAB - COAGULATION OR DERABLES Performing Organization Address [facility] Co de Phone Number [address] [address], [facility] [phone] * TROPONIN-I HIGH SENSITIVE BASELINE + 1HR (04/12/2024 4:33 PM CDT) [facility] Troponin I High Sensitive 5 <=14 ng/L 04/12/2024 5:07 PM CDT [facility] Blood BLOOD SPECIMEN / Unknown Venipuncture / Unknown 04/12/2024 4:33 PM CDT 04/12/2024 4:41 PM CDT Miquel London MD LAB - CHEMISTRY KVNG RAMIREZ Performing Organization Address [facility] Co de Phone Number [address] [address], [place] [phone] * TYPE + SCREEN PANEL (04/12/2024 4:33 PM CDT) [facility] Antibody Screen NEG 5:28 PM CDT [facility] ABO Rh O POS 04/12/2024 5:28 PM CDT [facility] Blood Bank BLOOD SPECIMEN / Unknown Venipuncture / Unknown 04/12/2024 4:33 PM CDT 04/12/2024 4:45 PM CDT Tito Freeman MD LAB - BLOOD BANK ORD ERABLES [facility] [address] [place] [address], [facility] [phone] * (ABNORMAL) CBC W AUTO DIFFERENTIAL (04/12/2024 4:33 PM CDT) WBC 11.0(H) 4.0 - 10.7 x10E9/L 04/12/2024 4:47 PM [facility] RBC Count 4.64 3.90 - 5.20 x10E12/L 04/12/2024 4:47 PM [facility] Hemoglobin 12.6 11.9 - 15.8 g/dL 04/12/2024 4:47 PM [facility] Hematocrit 39.8 34.8 - 46.1 % 04/12/2024 4:47 PM [facility] MCV 85.8 80.0 - 98.0 fL 04/12/2024 4:47 PM [facility] MCH 27.2 26.7 - 33.6 pg 04/12/2024 4:47 PM [facility] MCHC 31.7 31.7 - 36.3 g/dL 04/12/2024 4:47 PM [facility] RDW-CV 16.2(H) 11.3 - 14.8 % 04/12/2024 4:47 PM [facility] Platelet Count 229 150 - 420 x10E9/L 04/12/2024 4:47 PM [facility] MPV 10.0 7.8 - 11.4 fL 04/12/2024 4:47 PM [facility] Neutrophil % 74.9(H) 41.0 - 74.0 % 04/12/2024 4:47 PM [facility] Lymphocyte % 13.1(L) 17.0 - 47.0 % 04/12/2024 4:47 PM [facility] Monocyte % 9.6 3.0 - 11.0 % 04/12/2024 4:47 PM [facility] Eosinophil % 1.5 0.0 - 7.0 % 04/12/2024 4:47 PM [facility] Basophil % 0.5 0.0 - 1.6 % 04/12/2024 4:47 PM [facility] Immature Granulocytes % 0.4 0.0 - 1.0 % 04/12/2024 4:47 PM [facility] Neutrophil Absolute 8.22(H) 1.60 - 7.50 x10E9/L 04/12/2024 4:47 PM [facility] Lymphocyte Absolute 1.44 1.00 - 4.40 x10E9/L 04/12/2024 4:47 PM [facility] Monocyte Absolute 1.05(H) 0.15 - 1.00 x10E9/L 04/12/2024 4:47 PM [facility] Eosinophil Absolute 0.16 0.00 - 0.60 x10E9/L 04/12/2024 4:47 PM [facility] Basophil Absolute 0.05 0.00 - 0.13 x10E9/L 04/12/2024 4:47 PM [facility] Blood BLOOD SPECIMEN / Unknown Venipuncture / Unknown 04/12/2024 4:33 PM CDT 04/12/2024 4:41 PM CDT Tito Freeman MD LAB - HEMATOLOGY ORD ERABLES [facility] [address] [place] [address], [facility] [phone] * (ABNORMAL) COMPREHENSIVE METABOLIC PANEL (04/12/2024 4:33 PM CDT) BUN 40(H) 7 - 26 mg/dL 04/12/2024 5:04 PM [facility] Creatinine 1.21(H) 0.56 - 0.96 mg/dL 04/12/2024 5:04 PM [facility] Sodium 141 136 - 145 mmol/L 04/12/2024 5:04 PM [facility] Potassium 4.8(H) 3.5 - 4.5 mmol/L 04/12/2024 5:04 PM [facility] Chloride 111(H) 98 - 107 mmol/L 04/12/2024 5:04 PM [facility] CO2 22 22 - 29 mmol/L 04/12/2024 5:04 PM [facility] Glucose 103 70 - 115 mg/dL 04/12/2024 5:04 PM [facility] Calcium 9.0 8.4 - 10.2 mg/dL 04/12/2024 5:04 PM [facility] Protein Total 6.6 6.0 - 8.3 g/dL 04/12/2024 5:04 PM [facility] Albumin 3.3(L) 3.4 - 5.0 g/dL 04/12/2024 5:04 PM [facility] Bilirubin Total 0.4 0.2 - 1.2 mg/dL 04/12/2024 5:04 PM [facility] Alkaline Phosphatase 68 40 - 150 U/L 04/12/2024 5:04 PM [facility] ALT 15 5 - 55 U/L 04/12/2024 5:04 PM [facility] AST 16 5 - 34 U/L 04/12/2024 5:04 PM [facility] Anion Gap 8 6 - 16 04/12/2024 5:04 PM [facility] BUN/Creatinine Ratio 33(H) 7 - 23 04/12/2024 5:04 PM [facility] Osmolality Calculated 302(H) 275 - 295 mOsm/kg 04/12/2024 5:04 PM [facility] Albumin/Globulin Ratio 1.0(L) 1.1 - 2.3 04/12/2024 5:04 PM [facility] eGFR by CKD-EPI 44(L) >=90 mL/min/1.7 3 m2 04/12/2024 5:04 PM CDT [facility] Blood BLOOD SPECIMEN / Unknown Venipuncture / Unknown 04/12/2024 4:33 PM CDT 04/12/2024 4:41 PM CDT Tito Freeman MD LAB - CHEMISTRY KVNG RAMIREZ [facility] Organization Address City/State/ZIP Co de Phone Number [facility] [address] [place] [address], [facility] [phone] * CT BRAIN - Stroke (04/12/2024 4:28 PM CDT) Anatomical Region Laterality Modality Head Computed Tomogra phy 04/12/2024 4:3 7 PM CDT Impressions 04/12/2024 4:46 PM CDT [...] DATE/TIME OF EXAM: 04/12/2024 4:29 PM, LOCATION: [facility] HISTORY: Code Stroke ADDITIONAL CLINICAL INFORMATION: Ordering [...] 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 Tiyi-qb-zhtfkied cerebral volume loss with mild ex vacuo dilation of the lateral ventricles. VENTRICLES/EXTRA-AXIAL SPACES: No evidence of hydrocephalus. No extra-axial collection. Basal cisterns are patent. EXTRACRANIAL STRUCTURES: No acute or suspicious osseous abnormality. Mild degenerative changes of the right temporomandibular joint. 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 Normal soft tissues. Visualized paranasal sinuses and mastoids demonstrate no significant abnormality. Bilateral lens replacement; otherwise, orbits are unremarkable. Lxsz-zo-xgdvfapp calcific atherosclerosis of the carotid siphons and mild calcific atherosclerosis of the vertebral artery V4 segments. Small amount of cerumen within the external auditory canals. Procedure Note Von Harmon MD - 04/12/2024 EXAM: CT BRAIN STROKE, DATE/TIME OF EXAM: 04/12/2024 4:29 PM, LOCATION:[facility] HISTORY: Code Stroke ADDITIONAL CLINICAL INFORMATION: Ordering [...] likely represents the sequela of chronicmicroangiopathic change. Vcml-rd-cningqfu cerebral volume loss with mild ex vacuodilation [...] Bilateral lens replacement; otherwise, orbits are unremarkable. Hwsu-ci-kwduufdbnbajnhzd atherosclerosis of the carotid siphons and mild [...] 0.9 - 1.2 04/12/2024 4:28 PM CDT [facility] Device [id number] 04/12/2024 4:28 PM CDT [facility] Tableau Report Developer ID [id number] 04/12/2024 4:28 PM CDT [facility] Blood BLOOD SPECIMEN / Unknown 04/12/2024 4:25 PM CDT 04/12/2024 4:28 PM CDT Geoff Gerber MD LAB - POINT OF CARE ORDERABLES [facility] [address] [place] [address], [place] [phone] * (ABNORMAL) CREATININE - POCT INTERFACED (04/12/2024 4:24 PM CDT) Creatinine POCT 1.34(H) 0.30 - 1.30 mg/dL 04/12/2024 4:29 PM CDT [facility] eGFR 39(L) >=90 mL/min/1.7 3 m2 04/12/2024 4:29 PM CDT [facility] Blood BLOOD SPECIMEN / Unknown 04/12/2024 4:24 PM CDT 04/12/2024 4:28 PM CDT Provider Unknown LAB - POINT OF CARE ORDERABLES Performing Organization Address City/[facility]/ZIP Co de Phone Number [address] [address], [place] [phone] * XR CHEST CONTRACT READ (02/07/2023 12:27 PM CDT) Only the most recent of2 resultswithin the time period is included. Narrative [facility] - 02/07/2023 12:27 PM CDT No clinical interpretation provided, images available for review. Mitchell Moses MD DIAGNOSTIC IMAGING O RDERABLES [facility] Care Teams Social Services Aide Relationship Specialty Start Date End Date Hayden Oreilly MD [address] [address] PCP - General Family Medicine 08/17/21
--- OUTSIDE RECORDS SUMMARY | 2024-11-17 11:42 | XMS_ITS | Clinical Summary ---
Author Organization [facility] Address [address] [place] [address] Care Team Providers Care Cable Stretcher And Tester Name Role Phone Hayden Oreilly MD Primary Care Provi erinn Source Comments [facility],non-owned Affiliates and Associated Physician Practices is amultiple site organization consisting of ambulatory clinics and hospital sitesin [place], [place], [place] and [place]. This disclosure is being madepursuant to the Care Everywhere program and may not contain all information available regarding this patient. Last updated 18.[facility] Allergies No known active allergies Medications * [...] Department Care Team Description 11/07/2024 1:10 AM BILLBOARD POSTER HELPER Clinical Support [facility] - Cardiology [facility] [address] [address] Cerebrovascular accident (CVA), unspecified mechanism (HCC) 10/03/2024 Travel 08/29/2024 1:10 AM BILLBOARD POSTER HELPER Clinical Support [facility] - Cardiology [address] [place] [phone] Cerebrovascular accident (CVA), unspecified mechanism (HCC) from [...] Recorded Patient Health Questionnaire-2 Score 0 04/14/2024 [facility] [place] of Occupat ional Health - Occupational Stress [...] place to sleep or slept in a half-way (including now)? No 04/12/2024 Sex and Gender [...] Description 11/26/2024 10:20 AM CDT Office Visit [facility] - Cardiology [address], [address] [address] Katie Quiles MD [address] [address] 12/12/2024 1:10 AM CDT Clinical Support [facility] - Cardiology [address], [address] [address] 01/16/2025 1:10 AM CDT Clinical Support [facility] - Cardiology [address], [address] [address] 02/20/2025 1:10 AM CDT Clinical Support [facility] - Cardiology [address], [address] [address] 03/27/2025 1:10 AM CDT Clinical Support [facility] - Cardiology [address], [address] [address] 05/01/2025 1:10 AM CDT Clinical Support [facility] - Cardiology [address], [address] [address] 06/05/2025 1:10 AM CDT Clinical Support [facility] - Cardiology [address], [address] [address] Health Maintenance Due Date Last Done Comments MEDICARE AWV 12 MONTHS 1940 DTAP/TDAP/TD VACCINES (1 - Tdap) 1957 PNEUMOCOCCAL VACCINE 50+ (1 of 2 - PCV) 1957 ZOSTER VACCINE (1 of 2) 1988 Respiratory Syncytial Virus (RSV) Vaccine Pt: or over 60 yrs (1 - 1-dose 75+ series) 2013 COVID-19 VACCINE (2 - season) 2024 06/15/2021 DEPRESSION SCREENING 09/04/2024 04/12/2024 [...] complete this topic MENINGOCOCCAL (Group B) VACCINE SHARED DECISION-MAKING Aged Out No longer eligible based on patient's age to complete this topic MENINGOCOCCAL GROUPS A/C/Y/W VACCINE Aged Out No longer eligible based on patient's age to complete this topic Medical Devices Implanted Type Area Manager Surgical Device Identifier Shelf Expiration Date Model / Serial / Lot Rcdr Crd Linq Ii Ins - [id number] Implanted:Qty: 1 on 04/15/2024 by Katie Quiles MD at [facility] [employer] Cardiac Surgical [id number] 08/22/2025 [id number] / [id number] / [id number] Procedures Procedure Name Priority Date/Time Associated Diagnosis Comments CARDIAC PROCEDURE ORDER 11/04/2024 CARDIAC PROCEDURE ORDER 09/30/2024 [place] ILR DEVICE INTERROGAT REMOTE Routine 09/08/2024 6:40 PM BILLBOARD POSTER HELPER Cerebrovascular accident (CVA), unspecified mechanism (HCC) from Last 3 Months Results * CARDIAC PROCEDURE ORDER (11/04/2024) Only the most recent of2 resultswithin the time period is included. Narrative 11/04/2024 Ordered by an unspecified provider. Scanned Document CARDIAC SERVICES ORD ERABLES * [place] ILR DEVICE INTERROGAT REMOTE (09/08/2024 6:40 PM BILLBOARD POSTER HELPER) Narrative Herman Bailey MD - 09/08/2024 6:40 PM BILLBOARD POSTER HELPER Herman Bailey MD 09/08/2024 6:41 PM Dear [...] 4:25 PM 04/15/2024 7:23 PM Care Teams Cable Stretcher And Tester Relationship Specialty Start Date End Date Hayden Oreilly MD [address] [address] PCP - General Family Medicine 08/17/21
[2024-11-17 11:50] VITALS: BP 112/49; PULSE 101; RESP 24; TEMP 36.6; O2SAT 95
--- NOTE | 2024-11-17 11:52 | ECG_ITS ---
Test Date: 2024-11-17 11:56:12 Measurements Intervals [place] Rate: 103 P: 57 KS: 162 QRS: 48 QRSD: 88 T: 48 QT: 312 QTc: 409 Interpretive Statements SINUS TACHYCARDIA WITH FREQUENT SUPRAVENTRICULAR PREMATURE COMPLEXES Electronically Signed On 11-17-2024 14:03:51 CDT by Dario Montgomery D.O
[2024-11-17 12:20] LABS: Basophils Percent Auto 0.3 % (0.2-1.2); Eosinophils Absolute Auto 0.2 K/mm3 (0-0.3); Eosinophils Percent Auto 1.7 % (0-4.4); Hemoglobin 9.4 g/dL (12.0-15.0); Immature Granulocyte Percent A 0.9 % (0-0.5); Lymphocytes Absolute Auto 0.57 K/mm3 (0.9-3.2); Lymphocytes Percent Auto 5.3 % (18.3-44.2); Mean Corpuscular HGB Conc 29.4 g/dl (32-36); Mean Corpuscular Hemoglobin 22.8 pg (26-34); Mean Corpuscular Volume 77.5 fl (80-100); Monocytes Absolute Auto 1.3 K/mm3 (0.1-0.6); Monocytes Percent Auto 12.5 % (2.6-8.5); Neutrophils Absolute Auto 8.5 K/mm3 (1.3-6.7); Neutrophils Percent Auto 79.3 % (45.5-73.1); Platelet Count Result 199 k/mm3 (150-375); Red Blood Count 4.13 M/mm3 (4.2-5.4); Red Cell Distribution Width 17.8 % (11.5-14.5); White Blood Count 10.7 K/mm3 (4.5-10.0)
[2024-11-17 12:29] LABS: Alanine Aminotransferase 24 U/L (6-35); Albumin Level 3.6 g/dL (3.5-5.1); Alkaline Phosphatase 56 U/L (38-126); Anion Gap 9 mmol/L (4-12); Aspartate Amino Transferase 25 U/L (14-36); Bilirubin,Total 1.4 mg/dL (0.2-1.3); Blood Urea Nitrogen 27 mg/dL (7-17); Calcium 9.1 mg/dL (8.4-10.2); Carbon Dioxide 24 mmol/L (22-30); Chloride 98 mmol/L (98-107); Estimated CRCL calculation 26 ml/min; Estimated Glomerular Filt Rate 37; Glucose 181 mg/dL (65-110); Potassium 4.3 mmol/L (3.4-5.0); Sodium 131 mmol/L (137-145)
--- OUTSIDE RECORDS SUMMARY | 2024-11-17 12:33 | XMS_ITS | Clinical Summary ---
Author Organization [facility] [address] Address [address] [place] [address] Care Team Providers Care Linting Machine Operator Name Role Phone Hayden Oreilly MD Primary Care Provi erinn Pipo Richardson MD Unavailable [phone] Allergies No known active allergies Medications [...] 10/16/2024 Assessment & Plan (10/16/2024 3:17 PM METAL GAUGE MAKER): O2 saturation between 92-94% at rest Recommended ER evaluation, patient declined Will treat for possible COPD exacerbation again with prednisone Albuterol as needed Already recently treated with prednisone, z pack Please see your PCP or veneer gluer in the future for recurrent COPD exacerbations Cough 10/16/2024 Assessment & Plan (10/16/2024 3:16 PM METAL GAUGE MAKER): Mucinex as expectorant Albuterol nebulizer Prednisone Likely d/t COPD exacerbation Bronchitis 09/23/2024 Assessment & Plan (09/23/2024 11:51 AM METAL GAUGE MAKER): Covid and flu test negative Wheezing throughout [...] 09/23/2024 Assessment & Plan (09/23/2024 12:04 PM METAL GAUGE MAKER): Rapid strep positive Initiate Zithromax as this [...] brachial pulses with equal and good hand neon sign worker to bilateral upper extremities. Plan: Symptoms are [...] (chronic obstructive pulmonary disease) 05/2024 Atherosclerosis of big sandy ar mian of both lower extremities with [...] Department Care Team Description 11/15/2024 Orders Only [facility] Vascular and Vein Surgery [address] [place] [address] Pipo Richardson MD Aftercare following surgery of the circulatory system (Primary Dx); Stenosis of right carotid artery; Occlusion of left carotid artery; Subclavian artery stenosis, left 11/14/2024 3:00 PM CDT Office Visit [facility] Vein Surgery [address] [place] [phone] Tabitha Ortez NP Atherosclerosis 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 with intermittent claudication (Primary Dx); Carotid artery calcification, unspecified laterality; Bilateral carotid artery stenosis; Numbness and tingling of left upper extremity 11/14/2024 1:44 PM CDT - 11/14/2024 11:59 PM CDT Hospital Encounter [facility] [address] [place] [address] Aftercare following surgery of the circulatory system Discharge Disposition: Discharge to home or self care 11/14/2024 1:43 PM CDT - 11/14/2024 11:59 PM CDT Hospital Encounter [facility] [address] [place] [address] Aftercare following surgery of the circulatory system Discharge Disposition: Discharge to home or self care 11/08/2024 10:45 AM METAL GAUGE MAKER Office Visit [facility] [address] [address] Maryellen De Souza NP Chronic obstructive pulmonary disease with acute exacerbation (HCC) (Primary Dx); Pneumonia due to infectious organism, unspecified laterality, unspecified part of lung 10/26/2024 Nurse Triage [facility] Medicine [address] [facility] [address] [place] [phone] Hayden Oreilly MD 10/25/2024 Orders Only [address] [address] Cony Caba NP 10/25/[address] [facility] [address] [facility] [address] [place] [address] Hayden Oreilly MD 10/25/[address] [facility] [address] [facility] [address] [place] [address] Hayden Oreilly MD LAVELL Questions 10/18/[address] [facility] [address] [facility] [address] [place] [address] Hayden Oreilly MD Medication Request 10/18/[address] [facility] [address] [facility] [address] [place] [address] Hayden Oreilly MD Medical Question/Miscellaneous 10/16/2024 3:15 PM METAL GAUGE MAKER Office Visit [facility] at [address] [place] [phone] Tamar Carpio PA Shortness of breath (Primary Dx); Cough, unspecified type 10/16/[address] [facility] [address] [facility] [address] [place] [address] Hayden Oreilly MD [address] [facility] [address] [facility] [address] [place] [address] Hayden Oreilly MD Forms Request 10/14/[address] [facility] [address] [facility] [address] [place] [address] Hayden Oreilly MD Medical Question/Miscellaneous 10/03/[address] [facility] [address] [facility] [address] [place] [address] Hayden Oreilly MD Referral Request 09/23/2024 11:55 AM METAL GAUGE MAKER Ancillary Procedure [facility] [place] [address] [place] [phone] Bronchitis 09/23/2024 11:45 AM METAL GAUGE MAKER Office Visit [facility] [place] [address] [place] [phone] Tamar Carpio PA Bronchitis (Primary Dx); Strep throat 09/23/2024 Telephone [facility] [address] [phone] Sheree Gomez NP 09/23/[address] [facility] [address] [address] Hayden Oreilly MD 09/12/2024 9:30 AM METAL GAUGE MAKER Procedure visit [facility] [address] [address] Myrna Gamboa NP Bilateral impacted cerumen (Primary Dx) 09/10/2024 Orders Only [facility] Health Information Management [address] [place] [address] Scanning, Provider 09/09/[address] [facility] [address] [address] Hayden Oreilly MD Medical Question/Miscellaneous from Last [...] drink = 0.6 oz pur e alcohol) [facility] [employer] Answer Date Recorded In the past 12 months has [employer], gas, oil, or water [employer] threatened to shut off services in your [...] often do you attend chur ch or methodist services? Never 05/09/2024 Do you belong to any clubs o r organizations such as latter-day groups, unions, fraternal or athletic groups, or [...] any time in the past 12 m [facility], were you homeless or living in a mcc (including now)? No 05/09/2024 Personal Safety Answer Date Recorded Have you ever been in or are you currently in a harmful physical or emotional relationship or is someone making you feel afraid or unsafe? 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 METAL GAUGE MAKER Gender Identity Not on file Sexual Orientation Not on file Obstetrics History Last Filed Vital Signs Vital Sign Reading Time Taken Comments Blood Pressure 96/65 11/14/2024 3:12 PM CDT Pulse 95 11/14/2024 3:12 PM CDT Temperature 36.7 C (98 F) 10/16/2024 2:39 PM METAL GAUGE MAKER Respiratory Rate 20 11/08/2024 10:27 AM METAL GAUGE MAKER Oxygen Saturation 94% 11/08/2024 10:27 AM METAL GAUGE MAKER Inhaled Oxygen Concentration - - Weight 78.5 [...] history exists Medical Devices Implanted Type Area Tool Technician Device Identifier Shelf Expiration Date Model / Serial / Lot Bard Peripheral Vascular Lifestream 8mm 37mm 80cm Balloon Expandable Low Profile Cover [id number] - [id number] Implanted:Qty: 1 on 02/27/2024 by Pipo Richardson MD at [facility] [employer] 10/04/2024 [id number] / / [id number] [employer] Peripheral Vascular Lifestream 8mm 37mm 80cm Balloon Expandable Low Profile Cover [id number] - [id number] Implanted:Qty: 1 on 02/27/2024 by Pipo Richardson MD at [facility] [employer] 09/03/2025 [id number] / / [id number] [employer] Vascular System Closure Repair Femoral Artery Suture Mediated Perclose Prostyle 53031-81 - [id number] Implanted:Qty: 1 on 02/27/2024 by Pipo Richardson MD at [facility] [employer] 11/01/2025 [id number] / / [id number] [employer] Vascular System Closure Repair Femoral Artery Suture Mediated Perclose Prostyle 97824-80 - [id number] Implanted:Qty: 1 on 02/27/2024 by Pipo Richardson MD at [facility] [employer] 11/01/2025 [id number] / / [id number] Procedures Procedure Name Priority Date/Time Associated Diagnosis Comments US TONEY Schedule Routine, Read Routine (OP Routine) 11/14/2024 3:16 PM CDT Aftercare following surgery of the circulatory system US DUPLEX SCAN OF AORTA: INFERIOR VENA CAVA, ILIAC, COMPLETE Routine 11/14/2024 3:16 PM CDT Aftercare following surgery of the circulatory system XR CHEST 1 VIEW Schedule Routine, Read Routine (OP Routine) 10/20/2024 8:26 AM METAL GAUGE MAKER POC INFLUENZA A/B, COVID-19 ANTIGEN Routine 10/16/2024 2:45 PM METAL GAUGE MAKER Cough, unspecified type POCT RAPID RSV Routine 10/16/2024 2:44 PM METAL GAUGE MAKER Cough, unspecified type XR CHEST PA LATERAL 2 VIEWS Schedule SARAH, Read SARAH (Appt Today, Awaiting Results) 09/23/2024 12:00 PM METAL GAUGE MAKER Bronchitis POCT RAPID RSV Routine 09/23/2024 11:27 AM METAL GAUGE MAKER Bronchitis POC INFLUENZA A/B, COVID-19 ANTIGEN Routine 09/23/2024 11:27 AM METAL GAUGE MAKER Bronchitis POCT RAPID STREP Routine 09/23/2024 11:1 9 AM METAL GAUGE MAKER Bronchitis Strep throat IA REMOVAL IMPACTED CERUMEN IRRIGATION/LVG UNILAT Routine 09/12/2024 9:30 AM METAL GAUGE MAKER Bilateral impacted cerumen SCAN - RADIOLOGY/IMAGING 09/10/2024 from Last 3 Months Results * US TONEY (11/14/2024 3:16 PM CDT) Anatomical Region Laterality Modality Vascular N/A Ultrasound 11/14/2024 2:26 PM CDT Narrative 11/15/2024 9:45 AM CDT Lower Extremity Arterial Doppler Report Patient Name: SARAI BERNARD E : 1940 Study Date: 11/14/2024 2:26:00 PM Gender: F Import Export Coordinator: Nader Moreira RDMS Demetria Ref Provider: PIPO [...] mmHg Lt Brachial Pressure 107 mmHg Rt CERTIFIED ETHICAL HACKER Pressure 99 mmHg Lt CERTIFIED ETHICAL HACKER Pressure 84 mmHg Rt DPA Pressure 109 [...] Study Date: 11/14/2024 2:26:00 PM Gender: F Import Export Coordinator: Nader Moreira RDMS, RVT Ref Provider: PIPO [...] mmHg Lt Brachial Pressure 107 mmHg Rt CERTIFIED ETHICAL HACKER Pressure 99 mmHg Lt CERTIFIED ETHICAL HACKER Pressure 84 mmHg Rt DPA Pressure 109 [...] Study Date: 11/14/2024 1:55:18 PM Gender: F Import Export Coordinator: Nader Moreira Provider: PIPO RICHARDSON Quality: Adequate [...] Study Date: 11/14/2024 1:55:18 PM Gender: F Import Export Coordinator: Nader Moreira Provider: PIPO RICHARDSON Quality: Adequate [...] XR Chest 1 View (10/20/2024 8:26 AM METAL GAUGE MAKER) Anatomical Region Laterality Modality Body, Chest N/A Radiographic Maame ging Historical Provider IMG XR PROCEDURES Edited Result - Final * POC Influenza A/B, COVID-19 antigen (10/16/2024 2:45 PM METAL GAUGE MAKER) Influenza A Ag, POC Negative Negative [facility] Influenza B Ag, POC Negative Negative [facility] COVID-19 Ag POC Presumptive Negative Presumptive Negative, Invalid [facility] Nasopharyngeal 10/16/2024 2: 45 PM METAL GAUGE MAKER Fazillah Jujuiz PA POINT OF CARE TEST ORDERABLES F inal Result [facility] [address] [address] * POCT rapid RSV (10/16/2024 2:44 PM METAL GAUGE MAKER) Rapid RSV, POC Negative Negative Lot Number [id number] QC Control Line Acceptable Swab 10/16/2024 2:44 PM METAL GAUGE MAKER Fazillah Faiz PA POINT OF CARE TEST ORDERABLES F inal Result * XR Chest Pa Lateral 2 Views (09/23/2024 12:00 PM METAL GAUGE MAKER) Anatomical Region Laterality Modality Body, Chest N/A Computed Radiogr aphy 09/23/2024 1:09 PM METAL GAUGE MAKER Narrative 09/23/2024 1:10 PM METAL GAUGE MAKER EXAM DESCRIPTION: XR CHEST PA LATERAL 2 [...] Xavier Rios D.O. PS T: Report ID: [id number] Reading Location: [place] [address] Procedure Note Xavier Rios, - 09/23/2024 EXAM [...] Xavier Rios D.O. PS T: Report ID: [id number] Reading Location: [id number] Tamar MACE IMG XR PROCEDURES Final Result * POC Influenza A/B, COVID-19 antigen (09/23/2024 11:27 AM METAL GAUGE MAKER) Pathologist [facility] Influenza A Ag, POC Negative Negative [facility] Influenza B Ag, POC Negative Negative [facility] COVID-19 Ag POC Presumptive Negative Presumptive Negative, Invalid [facility] Nasopharyngeal 09/23/2024 11 :27 AM METAL GAUGE MAKER Tamar MACE POINT OF CARE TEST ORDERABLES F inal Result [facility] [address] [address] * POCT rapid RSV (09/23/2024 11:27 AM METAL GAUGE MAKER) [facility] Rapid RSV, POC Negative Negative Lot Number [id number] QC Control Line Acceptable Swab 09/23/2024 11:2 7 AM METAL GAUGE MAKER Tamar MACE POINT OF CARE TEST ORDERABLES F inal Result * (ABNORMAL) POCT rapid strep A (09/23/2024 11:19 AM METAL GAUGE MAKER) [facility] Rapid Strep A, POC Positive(A ) Negative Swab 09/23/2024 11:1 9 AM METAL GAUGE MAKER Tamar MACE POINT OF CARE TEST ORDERABLES E dited Result - Final * IA REMOVAL IMPACTED CERUMEN IRRIGATION/LVG UNILAT (09/12/2024 9:30 AM METAL GAUGE MAKER) Narrative Myrna Gamboa NP - 09/12/2024 9:30 AM METAL GAUGE MAKER Myrna Gamboa NP 09/12/2024 10:47 AM Ear [...] well with no immediate complications Myrna Gamboa BLANKING MACHINE OPERATOR IN CLINIC/BEDSIDE KVNG RAMIREZ Final Result * SCAN - RADIOLOGY/IMAGING (09/10/2024) Anatomical Region Laterality Modality Other Provider Scanning Final Result from Last 3 Months Insurance DEVOTED MEDICARE O Advance Directives For more information, please contact: [phone] * Full Code (Latest Code Status on File) Date Activated Date Inactivated Comments 06/03/2022 1:32 PM 06/05/2022 3:52 PM Care Teams Linting Machine Operator Relationship Specialty Start Date End Date Hayden Oreilly MD [address] [place] [address] PCP - General Family Medicine 01/31/19 Pipo Richardson MD [address] [place] [address] Surgeon Vascular Surgery 02/27/24
--- OUTSIDE RECORDS SUMMARY | 2024-11-17 12:34 | XMS_ITS | Encounter Summary ---
Author Organization [facility] Healthcare Address [address] [place] [address] Care Team Providers Care Mock Up Maker Name Role Phone Hayden Oreilly MD Primary Care Provi erinn Pipo Richardson MD Unavailable [phone] Reason for Visit * Reason Onset Date Comments LAVELL Questions 10/25/2024 Encounter Details Date Type Department Care Team (Late st Contact Info) Description 10/25/2024 Telephone [facility] Medical Group Family Medicine [address] [place] [address] Hayden Oreilly MD [address] [place] [address] LAVELL Questions Social History Tobacco Use Types Packs/Day Years Used Date Smoking Tobacco: Former Cigarettes Q uit: 09/04/1992 Smokeless Tobacco: Never Comments:Quit 20 years ago Alcohol Use Standard Drinks/Week Comments Not Currently 0 (1 standard drink = 0.6 oz pur e alcohol) [facility] Utilities Answer Date Recorded In the past 12 months has [employer] electric, gas, oil, or water company threatened [...] often do you attend chur ch or druze services? Never 05/09/2024 Do you belong to any clubs o r organizations such as protestant groups, unions, fraternal or athletic groups, or [...] any time in the past 12 [facility], were you homeless or living in a correction (including now)? No 05/09/2024 Personal Safety Answer Date Recorded Have you ever been in or are you currently in a harmful physical or emotional relationship or is someone making you feel afraid or unsafe? 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 PARTS CATALOGER Gender Identity Not on file Sexual Orientation Not on file documented as of this encounter Miscellaneous Notes * Telephone Encounter - Sophy Francois - 10/28/2024 10:11 AM CST Call Back Caller???s Concern: Patient called to cancel appt stating she is currently hospitalized, will reschedule when discharged. Does message need to be routed? Yes-FYI Only S CATALOGER * Telephone Encounter - Jessica Stapleton MA - 10/25/2024 10:29 AM CST Records requested. Patient is aware. S CATALOGER * Telephone Encounter - Myrna Gamboa NP - 10/25/2024 9:35 AM PARTS CATALOGER We do not have those records, but make sure she is eating before she takes her antibiotic and drinking plenty of water. S CATALOGER * Telephone Encounter - Yumiko Blue - 10/25/2024 9:20 AM CST LAVELL Questions (Message from [facility]-Commercial Banker): Has patient been discharged at time of call? Yes Date Admitted: 10/21/24 Date Discharged: 10/23/24 Facility Admitted To: [facility] in [place] Reason for Stay? Pneumonia If prescribed new [...] message need to be routed? Yes-Action Needed S CATALOGER documented in this encounter Plan of Treatment Not on file documented as of this encounter Visit Diagnoses Not on filedocumented in this encounter Care Teams Mock Up Maker Relationship Specialty Start Date End Date Hayden Oreilly MD [address] [facility] [address] [address] PCP - General Family Medicine 01/31/19 Pipo Richardson MD [address] [place] [address] Surgeon Vascular Surgery 02/27/24 documented as of this encounter
--- OUTSIDE RECORDS SUMMARY | 2024-11-17 12:34 | XMS_ITS | CONTINUITY OF CARE DOCUMENT ---
Author Name henrietta shrestha Address Unknown Organization [facility] Address [address] [facility] [address] [place] [address] Phone [phone] Care Team Providers Care Drycleaner Name Role Phone Farshad JOE, Nannette Unavailable Nannette Yen MD Unavailable [phone] INSURANCE PROVIDERS Payer name Policy type / Coverage type [place] red libertarian ID [employer] Other [id number] SELF PAY [place] Medicare [id number]
--- OUTSIDE RECORDS SUMMARY | 2024-11-17 12:34 | XMS_ITS | Referral Summary ---
Author Organization [facility] [address] Address [address] [place] [address] Care Team Providers Care Assurance Senior Manager Name Role Phone Hayden Oreilly MD Primary Care Provi erinn Pipo Richardson MD Unavailable [phone] Encounters Date Type Department Care Team Description 11/15/2024 Orders Only [facility] Medical Group Vascular and Vein Surgery [address] [place] [address] [address] [place] [address] Pipo Richardson MD Aftercare following surgery of the circulatory system (Primary Dx); Stenosis of right carotid artery; Occlusion of left carotid artery; Subclavian artery stenosis, left 11/14/2024 3:00 PM CDT Office Visit [facility] Medical [facility] Vascular and Vein Surgery [address] [place] [address] [address] [place] [address] Tabitha Ortez NP Atherosclerosis 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 [address] [place] [address] [address] [place] [address] Aftercare following surgery of the circulatory system Discharge Disposition: Discharge to home or self care 11/14/2024 1:44 PM CDT - 11/14/2024 11:59 PM CDT Hospital Encounter [facility] [address] [address] Aftercare following surgery of the circulatory system Discharge Disposition: Discharge to home or self care 11/08/2024 10:45 AM INTERIOR SYSTEMS CARPENTER Office Visit [facility] [address] [facility] [address] [place] [address] Maryellen De Souza NP Chronic obstructive pulmonary disease with acute exacerbation (HCC) (Primary Dx); Pneumonia due to infectious organism, unspecified laterality, unspecified part of lung 10/26/2024 Nurse Triage [facility] [address] [facility] [address] [place] [address] Hayden Oreilly MD 10/25/2024 Orders Only [address] [phone] Cony Caba NP 10/25/2024 Nurse Triage [facility] [address] [facility] [address] [place] [address] Hayden Oreilly MD 10/25/2024 Telephone [facility] [address] [facility] [address] [place] [address] Hayden Oreilly MD LAVELL Questions 10/18/2024 Telephone [facility] [address] [facility] [address] [place] [address] Hayden Oreilly MD Medication Request 10/18/2024 Telephone [facility] [address] [facility] [address] [place] [address] Hayden Oreilly MD Medical Question/Miscellaneous 10/16/2024 3:15 PM INTERIOR SYSTEMS CARPENTER Office Visit [facility] at [address] [place] [phone] Tamar Carpio PA Shortness of breath (Primary Dx); Cough, unspecified type 10/16/2024 Nurse Triage [facility] [address] [facility] [address] [place] [address] Hayden Oreilly MD 2024 Telephone [facility] [address] [facility] [address] [place] [address] Hayden Oreilly MD Forms Request 10/14/2024 Telephone [facility] [address] [facility] [address] [place] [address] Hayden Oreilly MD Medical Question/Miscellaneous 10/03/2024 Telephone [facility] [address] [facility] [address] [place] [address] Hayden Oreilly MD Referral Request 09/23/2024 Telephone [facility] [place] [address] [place] [address] Sheree Gomez NP 09/23/2024 11:55 AM INTERIOR SYSTEMS CARPENTER Ancillary Procedure [facility] [place] [address] [place] [address] Bronchitis 09/23/2024 11:45 AM INTERIOR SYSTEMS CARPENTER Office Visit [facility] [place] [address] [place] [address] Tamar Carpio PA Bronchitis (Primary Dx); Strep throat 09/23/2024 Nurse Triage [facility] [address] [facility] [address] [place] [address] Hayden Oreilly MD 09/12/2024 9:30 AM INTERIOR SYSTEMS CARPENTER Procedure visit [facility] [address] [facility] [address] [place] [address] Myrna Gamboa NP Bilateral impacted cerumen (Primary Dx) 09/10/2024 Orders Only [facility] Health Information Management [address] [place] [address] Scanning, Provider 09/09/2024 Telephone [facility] [address] [address] Hayden Oreilly MD Medical Question/Miscellaneous [...] 10/16/2024 Assessment & Plan (10/16/2024 3:17 PM INTERIOR SYSTEMS CARPENTER): O2 saturation between 92-94% at rest Recommended ER evaluation, patient declined Will treat for possible COPD exacerbation again with prednisone Albuterol as needed Already recently treated with prednisone, z pack Please see your PCP or medical transcriber in the future for recurrent COPD exacerbations Cough 10/16/2024 Assessment & Plan (10/16/2024 3:16 PM INTERIOR SYSTEMS CARPENTER): Mucinex as expectorant Albuterol nebulizer Prednisone Likely d/t COPD exacerbation Bronchitis 09/23/2024 Assessment & Plan (09/23/2024 11:51 AM INTERIOR SYSTEMS CARPENTER): Covid and flu test negative Wheezing throughout [...] 09/23/2024 Assessment & Plan (09/23/2024 12:04 PM INTERIOR SYSTEMS CARPENTER): Rapid strep positive Initiate Zithromax as this [...] carotid stenosis and was being monitored by [facility] however are no longer accepting her insurance [...] brachial pulses with equal and good hand freight shipping agent to bilateral upper extremities. Plan: Symptoms [...] (chronic obstructive pulmonary disease) 05/2024 Atherosclerosis of salt river ar mian of both lower extremities with [...] drink = 0.6 oz pur e alcohol) [facility] [employer] Answer Date Recorded In the past 12 months has [employer], [employer], or water [employer] threatened to shut off services in your [...] How often do you attend chur or jehovah's witness services? Never 05/09/2024 Do [...] were you homeless or living in a nursing home (including now)? No 05/09/2024 Personal Safety Answer Date Recorded Have you ever been in or are you currently in a harmful physical or emotional relationship or is someone making you feel afraid or unsafe? 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 INTERIOR SYSTEMS CARPENTER Gender Identity Not on file Sexual Orientation Not on file Last Filed Vital Signs Vital Sign Reading Time Taken Comments Blood Pressure 96/65 11/14/2024 3:12 PM CDT Pulse 95 11/14/2024 3:12 PM CDT Temperature 36.7 C (98 F) 10/16/2024 2:39 PM INTERIOR SYSTEMS CARPENTER Respiratory Rate 20 11/08/2024 10:27 AM INTERIOR SYSTEMS CARPENTER Oxygen Saturation 94% 11/08/2024 10:27 AM INTERIOR SYSTEMS CARPENTER Inhaled Oxygen Concentration - - Weight 78.5 kg (173 lb) 11/14/2024 3:12 PM CDT Height 160 cm (5' 3 ) 11/14/2024 3:12 PM CDT Body Mass Index 30.65 11/14/2024 3:12 PM CDT Plan of Treatment Not on file Medical Devices Implanted Type Area Gun Mechanic Device Identifier Shelf Expiration Date Model / Serial / Lot Bard Peripheral Vascular Lifestream 8mm 37mm 80cm Balloon Expandable Low Profile Cover [id number] - [id number] Implanted:Qty: 1 on 02/27/2024 by Pipo Richardson MD at [facility] [employer] Peripheral Vascular 10/04/2024 [id number] / / [id number] Bard Peripheral Vascular Lifestream 8mm 37mm 80cm Balloon Expandable Low Profile Cover [id number] - [id number] Implanted:Qty: 1 on 02/27/2024 by Pipo Richardson MD at [facility] Bard Peripheral Vascular 09/03/2025 [id number] / / [id number] [employer] Vascular System Closure Repair Femoral Artery Suture Mediated Perclose Prostyle 93088-06 - [id number] Implanted:Qty: 1 on 02/27/2024 by Pipo Richardson MD at [facility] [employer] V[employer] 11/01/2025 [id number] / / [id number] [employer] Vascular System Closure Repair Femoral Artery Suture Mediated Perclose Prostyle 94633-79 - [id number] Implanted:Qty: 1 on 02/27/2024 by Pipo Richardson MD at [facility] [employer] Vascular 11/01/2025 [id number] / / [id number] Procedures Procedure Name Priority Date/Time Associated Diagnosis Comments US TONEY Schedule Routine, Read Routine (OP Routine) 11/14/2024 3:16 PM CDT Aftercare following surgery of the circulatory system US DUPLEX SCAN OF AORTA: INFERIOR VENA CAVA, ILIAC, COMPLETE Routine 11/14/2024 3:16 PM CDT Aftercare following surgery of the circulatory system XR CHEST 1 VIEW Schedule Routine, Read Routine (OP Routine) 10/20/2024 8:26 AM INTERIOR SYSTEMS CARPENTER POC INFLUENZA A/B, COVID-19 ANTIGEN Routine 10/16/2024 2:45 PM INTERIOR SYSTEMS CARPENTER Cough, unspecified type POCT RAPID RSV Routine 10/16/2024 2:44 PM INTERIOR SYSTEMS CARPENTER Cough, unspecified type XR CHEST PA LATERAL 2 VIEWS Schedule SARAH, Read SARAH (Appt Today, Awaiting Results) 09/23/2024 12:00 PM INTERIOR SYSTEMS CARPENTER Bronchitis POCT RAPID RSV Routine 09/23/2024 11:27 AM INTERIOR SYSTEMS CARPENTER Bronchitis POC INFLUENZA A/B, COVID-19 ANTIGEN Routine 09/23/2024 11:27 AM INTERIOR SYSTEMS CARPENTER Bronchitis POCT RAPID STREP Routine 09/23/2024 11:1 9 AM INTERIOR SYSTEMS CARPENTER Bronchitis Strep throat [place] REMOVAL IMPACTED CERUMEN IRRIGATION/LVG UNILAT Routine 09/12/2024 9:30 AM INTERIOR SYSTEMS CARPENTER Bilateral impacted cerumen SCAN - RADIOLOGY/IMAGING 09/10/2024 from Last 3 Months Results * US TONEY (11/14/2024 3:16 PM CDT) Anatomical Region Laterality Modality Vascular N/A Ultrasound 11/14/2024 2:26 PM CDT Narrative 11/15/2024 9:45 AM CDT Lower Extremity Arterial Doppler Report Patient Name: SARAI BERNARD E : 1940 Study Date: 11/14/2024 2:26:00 PM Gender: F Lacquer Coater: Nader Moreiar RDMS, T Ref Provider: PIPO RICHARDSON Quality: [...] mmHg Lt Brachial Pressure 107 mmHg Rt ASSISTANT MECHANIC Pressure 99 mmHg Lt ASSISTANT MECHANIC Pressure 84 mmHg Rt DPA Pressure 109 [...] Study Date: 11/14/2024 2:26:00 PM Gender: F Lacquer Coater: Nader Moreira RDMS, RVT Ref Provider: PIPO [...] mmHg Lt Brachial Pressure 107 mmHg Rt ASSISTANT MECHANIC Pressure 99 mmHg Lt ASSISTANT MECHANIC Pressure 84 mmHg Rt DPA Pressure 109 [...] Study Date: 11/14/2024 1:55:18 PM Gender: F Lacquer Coater: Nader Moreira Provider: PIPO RICHARDSON Quality: Adequate [...] Study Date: 11/14/2024 1:55:18 PM Gender: F Lacquer Coater: Nader Moreira Provider: PIPO RICHARDSON Quality: Adequate [...] XR Chest 1 View (10/20/2024 8:26 AM INTERIOR SYSTEMS CARPENTER) Anatomical Region Laterality Modality Body, Chest N/A Radiographic Maame ging Historical Provider IMAleida XR PROCEDURES Edited Result - Final * POC Influenza A/B, COVID-19 antigen (10/16/2024 2:45 PM INTERIOR SYSTEMS CARPENTER) Influenza A Ag, POC Negative Negative [facility] Influenza B Ag, POC Negative Negative [facility] COVID-19 Ag POC Presumptive Negative Presumptive Negative, Invalid [facility] Nasopharyngeal 10/16/2024 2: 45 PM INTERIOR SYSTEMS CARPENTER Tamar MACE POINT OF CARE TEST ORDERABLES F inal Result [facility] [address] [facility] [address] [place] [address], [facility] * POCT rapid RSV (10/16/2024 2:44 PM INTERIOR SYSTEMS CARPENTER) Rapid RSV, POC Negative Negative Lot Number [id number] QC Control Line Acceptable Swab 10/16/2024 2:44 PM INTERIOR SYSTEMS CARPENTER Tamar MACE POINT OF CARE TEST ORDERABLES F inal Result * XR Chest Pa Lateral 2 Views (09/23/2024 12:00 PM INTERIOR SYSTEMS CARPENTER) Anatomical Region Laterality Modality Body, Chest N/A Computed Radiogr aphy 09/23/2024 1:09 PM INTERIOR SYSTEMS CARPENTER Narrative 09/23/2024 1:10 PM INTERIOR SYSTEMS CARPENTER EXAM DESCRIPTION: XR CHEST PA LATERAL 2 [...] Xavier Rios D.O. PS T: Report ID: [id number] Reading Location: [id number] Procedure Note Xavier Rios DO - 09/23/2024 [...] Xavier Rios D.O. PS T: Report ID: [id number] Reading Location: [place] [address] Tamar MACE IMG XR PROCEDURES Final Result * POC Influenza A/B, COVID-19 antigen (09/23/2024 11:27 AM INTERIOR SYSTEMS CARPENTER) Influenza A Ag, POC Negative Negative [facility] Influenza B Ag, POC Negative Negative [facility] COVID-19 Ag POC Presumptive Negative Presumptive Negative, Invalid [facility] Nasopharyngeal 09/23/2024 11 :27 AM INTERIOR SYSTEMS CARPENTER Tamar MACE POINT OF CARE TEST ORDERABLES F inal Result [facility] [address] [address] * POCT rapid RSV (09/23/2024 11:27 AM INTERIOR SYSTEMS CARPENTER) Rapid RSV, POC Negative Negative Lot Number [id number] QC Control Line Acceptable Swab 09/23/2024 11:2 7 AM INTERIOR SYSTEMS CARPENTER Tamar MACE POINT OF CARE TEST ORDERABLES F inal Result * (ABNORMAL) POCT rapid strep A (09/23/2024 11:19 AM INTERIOR SYSTEMS CARPENTER) Rapid Strep A, POC Positive(A ) Negative Swab 09/23/2024 11:1 9 AM INTERIOR SYSTEMS CARPENTER Tamar MACE POINT OF CARE TEST ORDERABLES E dited Result - Final * [place] REMOVAL IMPACTED CERUMEN IRRIGATION/LVG UNILAT (09/12/2024 9:30 AM INTERIOR SYSTEMS CARPENTER) Narrative Myrna Gamboa NP - 09/12/2024 9:30 AM INTERIOR SYSTEMS CARPENTER Myrna Gamboa NP 09/12/2024 10:47 AM Ear [...] well with no immediate complications Myrna Gamboa BLADDER TRIMMER IN CLINIC/BEDSIDE KVNG RAMIREZ Final Result * SCAN - RADIOLOGY/IMAGING (09/10/2024) Anatomical Region Laterality Modality Other us Provider Scanning Final Result from Last 3 Months Insurance DEVOTED MEDICARE PPO Advance Directives For more information, please contact: [phone] * Full Code (Latest Code Status on File) Date Activated Date Inactivated Comments 06/03/2022 1:32 PM 06/05/2022 3:52 PM Care Teams Assurance Senior Manager Relationship Specialty Start Date End Date Hayden Oreilly MD [address] [address] PCP - General Family Medicine 01/31/19 Pipo Richardson MD [address] [facility] [address] [address] Surgeon Vascular Surgery 02/27/24
--- OUTSIDE RECORDS SUMMARY | 2024-11-17 12:34 | XMS_ITS | Encounter Summary ---
Author Organization [facility] Healthcare Address [address] [place] [address] Care Team Providers Care Telephone Quotation Clerk Name Role Phone Hayden Oreilly MD Primary Care Provi erinn Pipo Richardson MD Unavailable [phone] Reason for Visit * Reason Onset Date Comments Medical Question/Miscellaneous 10/18/2024 Encounter Details Date Type Department Care Team (Late st Contact Info) Description 10/18/2024 Telephone [facility] Medical Group Family Medicine [address] [place] [address] Hayden Oreilly MD [address] [place] [address] Medical Question/Miscellaneou s Social History Tobacco Use Types Packs/Day Years Used Date Smoking Tobacco: Former Cigarettes Q uit: 09/04/1992 Smokeless Tobacco: Never Comments:Quit 20 years ago Alcohol Use Standard Drinks/Week Comments Not Currently 0 (1 standard drink = 0.6 oz pur e alcohol) [facility] Utilities Answer Date Recorded In the past 12 months has [employer], gas, oil, or water company threatened to [...] often do you attend chur ch or pentecostal services? Never 05/09/2024 Do you belong to any clubs o r organizations such as zoroastrianism groups, unions, fraternal or athletic groups, or [...] any time in the past 12 [facility], were you homeless or living [...] on file Legal Sex Female 1:28 AM DAIRY PRODUCTS MAKER Gender Identity Not on file Sexual Orientation Not on file documented as of this encounter Miscellaneous Notes * Telephone Encounter - Darlene Rosario MA - 10/22/2024 1:39 PM CST Spoke with patient she is going to call the insurance company to see if she can get on a payment plan. She is currently admitted to [facility] for bronchitis because her O2 dropped down to 92%. Y PRODUCTS MAKER * Telephone Encounter - Hayden Oreilly MD - 10/18/2024 12:11 PM DAIRY PRODUCTS MAKER There is no alternative. If we have Luis we can give her that but she will still run into the same problem until the deductible is met, just like every other year Y PRODUCTS MAKER * Telephone Encounter - Darlene Rosario MA - 10/18/2024 11:37 AM DAIRY PRODUCTS MAKER She is unable to afford even if it possible due to deductible She is requesting an alternative medication. Y PRODUCTS MAKER * Telephone Encounter - Hayden Oreilly MD - 10/18/2024 11:08 AM DAIRY PRODUCTS MAKER She likely has to pay her deductible 1st to get any inhaler Y PRODUCTS MAKER * Telephone Encounter - Miriam Laurent MA - 10/18/2024 9:55 AM CST Medical Question/Miscellaneous Caller???s Concern: Patient was calling back to let the office know that the new inhaler would cost$700 so the patient told them to cancel it. Does message need to be routed? Yes-FYI Only Y PRODUCTS MAKER documented in this encounter Plan of Treatment Not on file documented as of this encounter Visit Diagnoses Not on filedocumented in this encounter Care Teams Telephone Quotation Clerk Relationship Specialty Start Date End Date Hayden Oreilly MD [address] [facility] [address] [facility] [address] [place] [address] PCP - General Family Medicine 01/31/19 Pipo Richardson MD [address] [facility] [address] [place] [address] Surgeon Vascular Surgery 02/27/24 documented as of this encounter
--- OUTSIDE RECORDS SUMMARY | 2024-11-17 12:34 | XMS_ITS | Encounter Summary ---
Author Organization [facility] Healthcare Address [address] [place] [address] Care Team Providers Care Outside Plant Technician Name Role Phone Hayden Oreilly MD Primary Care Provi erinn Pipo Richardson MD Unavailable [phone] Reason for Visit * Reason Onset Date Comments Medication Request 10/18/2024 Encounter Details Date Type Department Care Team (Late st Contact Info) Description 10/18/2024 Telephone [facility] Medical Group Family Medicine [address] [place] [address] Hayden Oreilly MD [address] [place] [address] Medication Request Social History Tobacco Use Types Packs/Day Years Used Date Smoking Tobacco: Former Cigarettes Q uit: 09/04/1992 Smokeless Tobacco: Never Comments:Quit 20 years ago Alcohol Use Standard Drinks/Week Comments Not Currently 0 (1 standard drink = 0.6 oz pur e alcohol) [facility] Utilities Answer Date Recorded In the past 12 months has [employer], gas, oil, or water company threatened [...] often do you attend chur ch or islam services? Never 05/09/2024 Do you belong to any clubs o r organizations such as pentecostal groups, unions, fraternal or athletic groups, or [...] any time in the past 12 m [facility], were you homeless or living in [...] on file Legal Sex Female 1:28 AM GENERAL AGENT Gender Identity Not on file Sexual Orientation [...] message need to be routed? Yes-Action Needed RAL AGENT documented in this encounter Plan of Treatment Not on file documented as of this encounter Visit Diagnoses Not on filedocumented in this encounter Care Teams Outside Plant Technician Relationship Specialty Start Date End Date Hayden Oreilly MD [address] [address] PCP - General Family Medicine 01/31/19 [place] [address] [place] [address] [address] [facility] [place] [address] Surgeon Vascular Surgery 02/27/24 documented as of this encounter
--- OUTSIDE RECORDS SUMMARY | 2024-11-17 12:34 | XMS_ITS | Referral Summary ---
Author Organization [facility] Address [address] [facility] [place] [address] Care Team Providers Care Binder Cutter Name Role Phone Hayden Oreilly MD Primary Care Provi erinn Source Comments [facility],non-owned Affiliates and Associated Physician Practices is amultiple site organization consisting of ambulatory clinics and hospital sitesin [place], [place], [place] and [place]. This disclosure is being madepursuant to the Care Everywhere program and may not contain all information available regarding this patient. Last updated 18.[facility] Encounters Date Type Department Care Team Description 11/07/2024 1:10 AM [facility] Clinical Support [facility] Physician Group - Cardiology [address] [address] Cerebrovascular accident (CVA), unspecified mechanism (HCC) 10/03/2024 Travel 08/29/2024 1:10 AM [facility] Clinical Support [facility] Physician Group - Cardiology [address] [address] Cerebrovascular accident (CVA), unspecified mechanism (HCC) from [...] Recorded Patient Health Questionnaire-2 Score 0 04/14/2024 [facility] of Occupat ional Health - Occupational Stress [...] place to sleep or slept in a fpc (including now)? No 04/12/2024 Sex and Gender [...] [facility] - Cardiology [address], [address] [address] Katie Quiles MD [address] [address] 12/12/2024 1:10 AM CDT Clinical Support [facility] - Cardiology [address], [address] [address] 01/16/2025 1:10 AM CDT Clinical Support [facility] - Cardiology [address], [address] [address] 02/20/2025 1:10 AM CDT Clinical Support [facility] - [facility] [address], [address] [address] 03/27/2025 1:10 AM CDT Clinical Support [facility] - Cardiology [address], [address] [address] 05/01/2025 1:10 AM CDT Clinical Support [facility] - Cardiology [address] [facility] [place] [address] 06/05/2025 1:10 AM CDT Clinical Support [facility] Physician Group - Cardiology [address] [facility] [place] [address] Medical Devices Implanted Type Area Sustainable Design Consultant Device Identifier Shelf Expiration Date Model / Serial / Lot Rcdr Crd Linq Ii Ins - [id number] Implanted:Qty: 1 on 04/15/2024 by Katie Quiles MD at [facility] [employer] Cardiac Surgical [id number] 08/22/2025 [id number] / [id number] Procedures Procedure Name Priority Date/Time Associated Diagnosis Comments CARDIAC PROCEDURE ORDER 11/04/2024 CARDIAC PROCEDURE ORDER 09/30/2024 [place] DEVICE INTERROGAT REMOTE Routine 09/08/2024 6:40 PM COLLAR FELLER Cerebrovascular accident (CVA), unspecified mechanism (HCC) from Last 3 Months Results * CARDIAC PROCEDURE ORDER (11/04/2024) Only the most recent of2 resultswithin the time period is included. Narrative 11/04/2024 Ordered by an unspecified provider. Scanned Document CARDIAC SERVICES ORD ERABLES * [place] ILR DEVICE INTERROGAT REMOTE (09/08/2024 6:40 PM COLLAR FELLER) Narrative Herman Bailey MD - 09/08/2024 6:40 PM COLLAR FELLER Herman Bailey MD 09/08/2024 6:41 PM Dear [...] 4:25 PM 04/15/2024 7:23 PM Care Teams Binder Cutter Relationship Specialty Start Date End Date Hayden Oreilly MD [address] [address] PCP - General Family Medicine 08/17/21
--- OUTSIDE RECORDS SUMMARY | 2024-11-17 12:34 | XMS_ITS | Clinical Summary ---
Author Organization [facility] Address [address] [place] [address] Care Team Providers Care Assembly Operator Name Role Phone Hayden Oreilly MD Primary Care Provi erinn Source Comments [facility] [employer],non-owned Affiliates and Associated Physician Practices is amultiple site organization consisting of ambulatory clinics and hospital sitesin [place], [place], [place] and [place]. This disclosure is being madepursuant to the Care Everywhere program and may not contain all information available regarding this patient. Last updated 18.[facility] [employer] Allergies No known active allergies Medications * [...] Department Care Team Description 11/07/2024 1:10 AM POTATO CHIP MAKER Clinical Support [facility] - Cardiology [facility] [address] [address] Cerebrovascular accident (CVA), unspecified mechanism (HCC) 10/03/2024 Travel 08/29/2024 1:10 AM POTATO CHIP MAKER Clinical Support [facility] - Cardiology [address] [place] [phone] Cerebrovascular accident (CVA), unspecified mechanism (HCC) from [...] Recorded Patient Health Questionnaire-2 Score 0 04/14/2024 [facility] [place] of Occupat ional Health - Occupational Stress [...] place to sleep or slept in a long term (including now)? No 04/12/2024 Sex and Gender [...] Description 11/26/2024 10:20 AM CDT Office Visit [facility] - Cardiology [address], [address] [address] Katie Quiles MD [address] [address] 12/12/2024 1:10 AM CDT Clinical Support [facility]iology [address], [address] [address] 01/16/2025 1:10 AM CDT Clinical Support [facility]iology [address], [address] [address] 02/20/2025 1:10 AM CDT Clinical Support [facility] - Cardiology [address], [address] [address] 03/27/2025 1:10 AM CDT Clinical Support [facility] Physician [facility] - Cardiology [address], [address] [address] 05/01/2025 1:10 AM CDT Clinical Support [facility]iology [address], [address] [address] 06/05/2025 1:10 AM CDT Clinical Support [facility]ician [facility] - Cardiology [address], [address] [address] Health Maintenance Due Date Last Done Comments [...] this topic Medical Devices Implanted Type Area Dope Maintenance Worker Device Identifier Shelf Expiration Date Model / Serial / Lot Rcdr Crd Linq Ii Ins - [id number] Implanted:Qty: 1 on 04/15/2024 by Katie Quiles MD at [facility] [employer] [id number] 08/22/2025 LNQ22 / [id number] / [id number] Procedures Procedure Name Priority Date/Time Associated Diagnosis Comments CARDIAC PROCEDURE ORDER 11/04/2024 CARDIAC PROCEDURE ORDER 09/30/2024 [place] ILR DEVICE INTERROGAT REMOTE Routine 09/08/2024 6:40 PM POTATO CHIP MAKER Cerebrovascular accident (CVA), unspecified mechanism (HCC) from Last 3 Months Results * CARDIAC PROCEDURE ORDER (11/04/2024) Only the most recent of2 resultswithin the time period is included. Narrative 11/04/2024 Ordered by an unspecified provider. Scanned Document CARDIAC SERVICES ORD ERABLES * [place] ILR DEVICE INTERROGAT REMOTE (09/08/2024 6:40 PM POTATO CHIP MAKER) Narrative Herman Bailey MD - 09/08/2024 6:40 PM POTATO CHIP MAKER Herman Bailey MD 09/08/2024 6:41 PM Dear [...] 4:25 PM 04/15/2024 7:23 PM Care Teams Assembly Operator Relationship Specialty Start Date End Date Hayden Oreilly MD [address] [address] PCP - General Family Medicine 08/17/21
--- OUTSIDE RECORDS SUMMARY | 2024-11-17 12:34 | XMS_ITS | Patient Health Summary ---
Author Organization [facility] Address [address] [place] [address] Care Team Providers Care Bed Laster Name Role Phone Hayden Oreilly MD Primary Care Provi erinn Note from [facility],non-owned Affiliates and Associated Physician Practices is amultiple site organization consisting of ambulatory clinics and hospital sitesin [place], [place], [place] and [place]. This disclosure is being madepursuant to the Care Everywhere program and may not contain all information available regarding this patient. Last updated 18.[facility] Allergies No known active allergies Medications * [...] Recorded Patient Health Questionnaire-2 Score 0 04/14/2024 [facility] of Occupat ional Health - Occupational [...] PM CDT Medical Devices Implanted Type Area Grocery Associate Device Identifier Shelf Expiration Date Model / Serial / Lot Rcdr Crd Linq Ii Ins - [id number] Implanted:Qty: 1 on 04/15/2024 by Katie Quiles MD at [facility] [employer] [id number] 08/22/2025 LNQ22 / [id number] / LNQ22 Procedures * CARDIAC PROCEDURE ORDER(Performed 11/04/2024) * CARDIAC PROCEDURE ORDER(Performed 09/30/2024) * [place] ILR DEVICE INTERROGAT REMOTE(Performed 09/08/2024) Performed for Cerebrovascular accident (CVA), unspecified mechanism (HCC) * [place] ILR DEVICE INTERROGAT REMOTE(Performed 08/04/2024) Performed for [...] Scanned Document CARDIAC SERVICES ORD ERABLES * [place] ILR DEVICE INTERROGAT REMOTE (09/08/2024 6:40 PM PUBLIC SAFETY DISPATCHER) Narrative Herman Bailey MD - 09/08/2024 6:40 PM PUBLIC SAFETY DISPATCHER Herman Bailey MD 09/08/2024 6:41 PM Dear [...] Bailey MD PROCEDURE/MINOR SURG ICAL ORDERABLES * [place] ILR DEVICE INTERROGAT REMOTE (08/04/2024 7:33 PM PUBLIC SAFETY DISPATCHER) Narrative Herman Bailey MD - 08/04/2024 7:33 PM PUBLIC SAFETY DISPATCHER Herman Bailey MD 08/04/2024 7:33 PM Dear Ghazal aVladez, I reviewed the remote interrogation of your [...] - 115 mg/dL 04/15/2024 6:19 PM CDT [facility] Specimen Type Arterial 04/15/2024 6:19 PM CDT [facility] Blood BLOOD SPECIMEN / Unknown 04/15/2024 3:44 PM CDT 04/15/2024 6:19 PM CDT Miquel London MD LAB - POINT OF CARE ORDERABLES [facility] [address] [place] [address], [facility] [phone] * CCL LOOP RECORDER IMPLANT (04/15/2024 3:38 [...] resultswithin the time period is included. Pathologist [facility] WBC 7.9 4.0 - 10.7 x10E9/L 04/15/2024 5:59 AM CDT [facility] RBC Count 4.33 3.90 - 5.20 x10E12/L 04/15/2024 5:59 AM CDT [facility] Hemoglobin 11.7(L) 11.9 - 15.8 g/dL 04/15/2024 5:59 AM CDT [facility] Hematocrit 37.2 34.8 - 46.1 % 04/15/2024 5:59 AM [facility] MCV 85.9 80.0 - 98.0 fL 04/15/2024 5:59 AM [facility] MCH 27.0 26.7 - 33.6 pg 04/15/2024 5:59 AM [facility] MCHC 31.5(L) 31.7 - 36.3 g/dL 04/15/2024 5:59 AM [facility] RDW-CV 16.1(H) 11.3 - 14.8 % 04/15/2024 5:59 AM [facility] Platelet Count 214 150 - 420 x10E9/L 04/15/2024 5:59 AM [facility] MPV 10.1 7.8 - 11.4 fL 04/15/2024 5:59 AM [facility] Blood BLOOD SPECIMEN / Unknown Lab Venipuncture / Unknown 04/15/2024 4:38 AM CDT 04/15/2024 5:50 AM CDT Miquel London MD LAB - HEMATOLOGY ORD ERABLES [facility] [address] [place] [address], [facility] [phone] * (ABNORMAL) BASIC METABOLIC PANEL (CALCIUM TOTAL) (04/15/2024 4:38 AM CDT) Only the most recent of3 resultswithin the time period is included. BUN 29(H) 7 - 26 mg/dL 04/15/2024 6:16 AM [facility] Creatinine 1.05(H) 0.56 - 0.96 mg/dL 04/15/2024 6:16 AM [facility] Sodium 140 136 - 145 mmol/L 04/15/2024 6:16 AM [facility] Potassium 4.6(H) 3.5 - 4.5 mmol/L 04/15/2024 6:16 AM [facility] Chloride 113(H) 98 - 107 mmol/L 04/15/2024 6:16 AM [facility] CO2 20(L) 22 - 29 mmol/L 04/15/2024 6:16 AM T [facility] Glucose 100 70 - 115 mg/dL 04/15/2024 6:16 AM T [facility] Calcium 9.0 8.4 - 10.2 mg/dL 04/15/2024 6:16 AM [facility] Anion Gap 7 6 - 16 04/15/2024 6:16 AM T [facility] BUN/Creatinine Ratio 28(H) 7 - 23 04/15/2024 6:16 AM [facility] Osmolality Calculated 296(H) 275 - 295 mOsm/kg 04/15/2024 6:16 AM [facility] eGFR by CKD-EPI 52(L) >=90 mL/min/1.7 3 m2 04/15/2024 6:16 AM T [facility] Blood BLOOD SPECIMEN / Unknown Lab Venipuncture / Unknown 04/15/2024 4:38 AM CDT 04/15/2024 5:50 AM CDT Miquel Lonodn MD LAB - CHEMISTRY ORDE [facility] Organization Address City/State/ZIP Co de Phone Number [facility] [address] [place] [address], [facility] [phone] * CT Angio Brain And Neck (04/15/2024 [...] is dictated by Nury Green Dr, MD (radiology manager) I, Asia Holliday MD have personally reviewed and interpreted this examination/study. > Interpreting Provider: Asia Holliday MD on 04/17/2024 2:15 PM Narrative 04/17/2024 2:15 PM CDT PROCEDURE: CT ANGIO BRAIN AND NECK, DATE/TIME OF EXAM: 04/15/2024 12:48 AM, LOCATION [facility] INDICATION: I65.23: Bilateral carotid artery stenosis ADDITIONAL [...] atherosclerosis throughout the course causing areas of wwye-cy-kzjxvmuh stenosis predominantly in the V2 segment. There [...] DATE/TIME OF EXAM: 04/15/2024 12:48 AM, LOCATION [facility] INDICATION: I65.23: Bilateral carotid artery stenosis ADDITIONAL [...] atherosclerosis throughout the course causing areas of soxx-jl-dmopmoqu stenosis predominantly in the V2 segment. There [...] is dictated by Nury Green Dr, MD (radiology manager) I, Asia Holliday MD have personally reviewed [...] 12:19 PM Patient Status: I/P Study Site: [facility] Primary Location: [facility] EStudy Info Technical Quality: Adequate Exam Type: ECHO COMPLETE W BUBBLE STUDY Indications R20.0 - Numbness and tingling R20.2 - Numbness and tingling Procedure(s) * A complete 2D, color Doppler, spectral Doppler, and M-Mode transthoracic echocardiogram was performed. Contrast/Agitated Saline Contrast / Saline: Agitated Saline Amount: 5.00 ml Staff Referring Physician: Miquel London Ordering Provider: Miquel London Attending Physician: Miquel London Retail Business Manager: Pravin Gusman Left Ventricle The left ventricle [...] 12:19 PM Patient Status: I/P Study Site: [facility] Primary Location: [facility] EStudy Info Technical Quality: Adequate Exam Type: ECHO COMPLETE W BUBBLE STUDY Indications R20.0 - Numbness and tingling R20.2 - Numbness and tingling Procedure(s) * A complete 2D, color Doppler, spectral Doppler, and M-Modetransthoracic echocardiogram was performed. Contrast/Agitated Saline Contrast / Saline: Agitated Saline Amount: 5.00 ml Staff Referring Physician: Miquel London Ordering Provider: Miquel London Attending Physician: Miquel London Retail Business Manager: Pravin Kirstinzoe Left Ventricle The left ventricle [...] Report dictated by Cisco Taylor MD, PhD (radiology manager). I, Asia Holliday MD have personally reviewed and interpreted this examination/study. > Interpreting Provider: Asia Holliday MD on 04/16/2024 2:34 PM Narrative 04/16/2024 2:34 PM CDT PROCEDURE: MRI BRAIN WO CONTRAST, DATE/TIME OF EXAM: 04/14/2024 12:09 AM, LOCATION [facility] INDICATION: R20.0: Numbness and tingling R20.2: Numbness [...] CONTRAST, DATE/TIME OF EXAM: 04/14/2024 12:09AM, LOCATION [facility] INDICATION: R20.0: Numbness and tingling R20.2: Numbness [...] Report dictated by Cisco Taylor MD, PhD (radiology manager). I, Asia Holliday MD have personally reviewed and interpreted this examination/study. > Interpreting Provider: Asia Holliday MD on 04/16/2024 2:34 PM Miquel London MD MR ORDERABLES * LIPID PROFILE (04/13/2024 4:30 AM T) Cholesterol Total 145 <200 mg/dL 04/13/2024 5:44 AM [facility] HDL 52 >40 mg/dL 04/13/2024 5:44 AM [facility] Comment: ATP III Classification of HDL Cholesterol: <40 mg/dL: Considered a major risk factor. >60 mg/dL: Considered a negative risk factor. LDL Calculated 78 <100 mg/dL 04/13/2024 5:44 AM [facility] Comment: ATP III Classification of LDL Cholesterol: <100 mg/dL: Optimal 100 - 129 mg/dL: Near Optimal/Above Optimal 130 - 159 mg/dL: Borderline High 160 - 189 mg/dL: High >190 mg/dL: Very High Triglycerides 74 <150 mg/dL 04/13/2024 5:44 AM [facility] Comment: ATP III Classification of Triglycerides: <150 mg/dL: Normal 150 - 199 mg/dL: Borderline High 200 - 400 mg/dL: High >500 mg/dL: Very High Blood BLOOD SPECIMEN / Unknown Lab Venipuncture / Unknown 04/13/2024 4:30 AM CDT 04/13/2024 5:10 AM CDT Miquel London MD LAB - CHEMISTRY KVNG RAMIREZ [facility] [address] [place] [address], [facility] [phone] * BLOOD TYPE VERIFICATION (04/12/2024 9:36 PM CDT) ABO Rh O POS 04/12/2024 10:23 PM CDT [facility] Blood Bank BLOOD SPECIMEN / Unknown Venipuncture / Unknown 04/12/2024 9:36 PM CDT 04/12/2024 10:02 PM CDT Tito Freeman MD LAB - BLOOD BANK ORD ALENA Performing Organization Address City/[facility]/ZIP Co de Phone Number [facility] [address] [place] [address], [place] [phone] * HEMOGLOBIN A1C (04/12/2024 9:35 PM CDT) Hemoglobin A1c 5.6 <=5.6 % 04/13/2024 11:29 AM CDT [facility] Estimated Average Glucose 114 mg/dL 04/13/2024 11:29 AM CDT [facility] Comment: HbA1c Interpretation: Normal : < 5.7% Pre-diabetes: 5.7-6.4% Diabetes: Equal to or greater than 6.5% Test results diagnostic of diabetes should be repeated for confirmation. Treatment target values recommended by ADA and other clinical organizations should be used to evaluate metabolic control in patients. Reference: [place] Diabetes Association, Standards of Care in Diabetes [...] London MD LAB - CHEMISTRY KVNG RAMIREZ [address] [address], [facility] [phone] * TROPONIN-I HIGH SENSITIVE REFLEX 1HOUR (04/12/2024 6:02 PM CDT) Troponin I High Sensitive 5 <=14 ng/L 04/12/2024 6:49 PM CDT [facility] Delta Troponin I HS 0 <6 ng/L 04/12/2024 6:49 PM CDT [facility] Blood BLOOD SPECIMEN / Unknown Venipuncture / Unknown 04/12/2024 6:02 PM CDT 04/12/2024 6:10 PM CDT Miquel London MD LAB - CHEMISTRY KVNG RAMIREZ Performing Organization Address City/[facility]/ZIP Co de Phone Number [address] [address], [facility] [phone] * EKG 12-LEAD (04/12/2024 4:42 PM CDT) Ventricular Rate 86 BPM [facility] Atrial Rate 86 BPM [facility] P-R Interval 192 ms [facility] QRS Duration ms 84 ms [facility] Q-T Interval ms 352 ms [facility] QTC Calculation (Bezet) 421 ms [facility] MUSE Calculated P [place] 62 degrees SL MUSE Calculated R [place] 59 degrees SL MUSE Calculated T [place] 52 degrees [facility] M[facility] Interpretation EKG NORMAL SINUS RHYTHM NORMAL ECG NO PREVIOUS ECGS AVAILABLE Confirmed by PELON JOE, SADIA ([id number]) on 04/15/2024 9:05:12 AM [facility] 04/12/2024 4:42 PM CDT 04/15/2024 9:05 AM CDT Tito Freeman MD ECG ORDERABLES Performing Organization Address [facility] Phone Number [facility] * PT-INR [facility] (04/12/2024 4:33 PM CDT) [facility] PT 12.5 12.1 - 14.8 Seconds 04/12/2024 5:00 PM CDT [facility] INR 1.0 See Comment 04/12/2024 5:00 PM CDT [facility] Comment:The suggested therap eutic range for standard coumadin (warfarin) therapy is an INR of 2.0-3.0. For high-risk patients (Mechanical Mitral Valve Prosthesis, etc.), the suggested prophylactic therapeutic range is an INR of 2.5-3.5. Blood BLOOD SPECIMEN / Unknown Venipuncture / Unknown 04/12/2024 4:33 PM CDT 04/12/2024 4:41 PM CDT Tito Freeman MD LAB - COAGULATION OR DERABLES Performing Organization Address [facility] Co de Phone Number [address] [address], [facility] [phone] * TROPONIN-I HIGH SENSITIVE BASELINE + 1HR (04/12/2024 4:33 PM CDT) [facility] Troponin I High Sensitive 5 <=14 ng/L 04/12/2024 5:07 PM CDT [facility] Blood BLOOD SPECIMEN / Unknown Venipuncture / Unknown 04/12/2024 4:33 PM CDT 04/12/2024 4:41 PM CDT Miquel London MD LAB - CHEMISTRY KVNG RAMIREZ Performing Organization Address [facility] Co de Phone Number [address] [address], [place] [phone] * TYPE + SCREEN PANEL (04/12/2024 4:33 PM CDT) [facility] Antibody Screen NEG 5:28 PM CDT [facility] ABO Rh O POS 04/12/2024 5:28 PM CDT [facility] Blood Bank BLOOD SPECIMEN / Unknown Venipuncture / Unknown 04/12/2024 4:33 PM CDT 04/12/2024 4:45 PM CDT Tito Freeman MD LAB - BLOOD BANK ORD ERABLES [facility] [address] [place] [address], [facility] [phone] * (ABNORMAL) CBC W AUTO DIFFERENTIAL (04/12/2024 4:33 PM CDT) WBC 11.0(H) 4.0 - 10.7 x10E9/L 04/12/2024 4:47 PM [facility] RBC Count 4.64 3.90 - 5.20 x10E12/L 04/12/2024 4:47 PM [facility] Hemoglobin 12.6 11.9 - 15.8 g/dL 04/12/2024 4:47 PM [facility] Hematocrit 39.8 34.8 - 46.1 % 04/12/2024 4:47 PM [facility] MCV 85.8 80.0 - 98.0 fL 04/12/2024 4:47 PM [facility] MCH 27.2 26.7 - 33.6 pg 04/12/2024 4:47 PM [facility] MCHC 31.7 31.7 - 36.3 g/dL 04/12/2024 4:47 PM [facility] RDW-CV 16.2(H) 11.3 - 14.8 % 04/12/2024 4:47 PM [facility] Platelet Count 229 150 - 420 x10E9/L 04/12/2024 4:47 PM [facility] MPV 10.0 7.8 - 11.4 fL 04/12/2024 4:47 PM [facility] Neutrophil % 74.9(H) 41.0 - 74.0 % 04/12/2024 4:47 PM [facility] Lymphocyte % 13.1(L) 17.0 - 47.0 % 04/12/2024 4:47 PM [facility] Monocyte % 9.6 3.0 - 11.0 % 04/12/2024 4:47 PM [facility] Eosinophil % 1.5 0.0 - 7.0 % 04/12/2024 4:47 PM [facility] Basophil % 0.5 0.0 - 1.6 % 04/12/2024 4:47 PM [facility] Immature Granulocytes % 0.4 0.0 - 1.0 % 04/12/2024 4:47 PM [facility] Neutrophil Absolute 8.22(H) 1.60 - 7.50 x10E9/L 04/12/2024 4:47 PM [facility] Lymphocyte Absolute 1.44 1.00 - 4.40 x10E9/L 04/12/2024 4:47 PM [facility] Monocyte Absolute 1.05(H) 0.15 - 1.00 x10E9/L 04/12/2024 4:47 PM [facility] Eosinophil Absolute 0.16 0.00 - 0.60 x10E9/L 04/12/2024 4:47 PM [facility] Basophil Absolute 0.05 0.00 - 0.13 x10E9/L 04/12/2024 4:47 PM [facility] Blood BLOOD SPECIMEN / Unknown Venipuncture / Unknown 04/12/2024 4:33 PM CDT 04/12/2024 4:41 PM CDT Tito Freeman MD LAB - HEMATOLOGY ORD ERABLES [facility] [address] [place] [address], [facility] [phone] * (ABNORMAL) COMPREHENSIVE METABOLIC PANEL (04/12/2024 4:33 PM CDT) BUN 40(H) 7 - 26 mg/dL 04/12/2024 5:04 PM [facility] Creatinine 1.21(H) 0.56 - 0.96 mg/dL 04/12/2024 5:04 PM [facility] Sodium 141 136 - 145 mmol/L 04/12/2024 5:04 PM [facility] Potassium 4.8(H) 3.5 - 4.5 mmol/L 04/12/2024 5:04 PM [facility] Chloride 111(H) 98 - 107 mmol/L 04/12/2024 5:04 PM [facility] CO2 22 22 - 29 mmol/L 04/12/2024 5:04 PM [facility] Glucose 103 70 - 115 mg/dL 04/12/2024 5:04 PM [facility] Calcium 9.0 8.4 - 10.2 mg/dL 04/12/2024 5:04 PM [facility] Protein Total 6.6 6.0 - 8.3 g/dL 04/12/2024 5:04 PM [facility] Albumin 3.3(L) 3.4 - 5.0 g/dL 04/12/2024 5:04 PM [facility] Bilirubin Total 0.4 0.2 - 1.2 mg/dL 04/12/2024 5:04 PM [facility] Alkaline Phosphatase 68 40 - 150 U/L 04/12/2024 5:04 PM [facility] ALT 15 5 - 55 U/L 04/12/2024 5:04 PM [facility] AST 16 5 - 34 U/L 04/12/2024 5:04 PM [facility] Anion Gap 8 6 - 16 04/12/2024 5:04 PM [facility] BUN/Creatinine Ratio 33(H) 7 - 23 04/12/2024 5:04 PM [facility] Osmolality Calculated 302(H) 275 - 295 mOsm/kg 04/12/2024 5:04 PM [facility] Albumin/Globulin Ratio 1.0(L) 1.1 - 2.3 04/12/2024 5:04 PM [facility] eGFR by CKD-EPI 44(L) >=90 mL/min/1.7 3 m2 04/12/2024 5:04 PM CDT [facility] Blood BLOOD SPECIMEN / Unknown Venipuncture / Unknown 04/12/2024 4:33 PM CDT 04/12/2024 4:41 PM CDT Tito Freeman MD LAB - CHEMISTRY KVNG RAMIREZ [facility] Organization Address City/State/ZIP Co de Phone Number [facility] [address] [place] [address], [facility] [phone] * CT BRAIN - Stroke (04/12/2024 4:28 [...] DATE/TIME OF EXAM: 04/12/2024 4:29 PM, LOCATION: [facility] HISTORY: Code Stroke ADDITIONAL CLINICAL INFORMATION: Ordering [...] 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 Lhcl-sx-xxsljcyn cerebral volume loss with mild ex vacuo [...] Bilateral lens replacement; otherwise, orbits are unremarkable. Ooqz-gd-ezcuftok calcific atherosclerosis of the carotid siphons and mild calcific atherosclerosis of the vertebral artery V4 segments. Small amount of cerumen within the external auditory canals. Procedure Note Von Harmon MD - 04/12/2024 EXAM: CT BRAIN STROKE, DATE/TIME OF EXAM: 04/12/2024 4:29 PM, LOCATION:[facility] HISTORY: Code Stroke ADDITIONAL CLINICAL INFORMATION: Ordering [...] likely represents the sequela of chronicmicroangiopathic change. Mziw-bm-euoryrvq cerebral volume loss with mild ex vacuodilation [...] Bilateral lens replacement; otherwise, orbits are unremarkable. Apzo-ot-yptklsablrhjngkw atherosclerosis of the carotid siphons and mild [...] 0.9 - 1.2 04/12/2024 4:28 PM CDT [facility] Device [id number] 04/12/2024 4:28 PM CDT [facility] Log Carrier Operator ID [id number] 04/12/2024 4:28 PM CDT [facility] Blood BLOOD SPECIMEN / Unknown 04/12/2024 4:25 PM CDT 04/12/2024 4:28 PM CDT Geoff Gerber MD LAB - POINT OF CARE ORDERABLES [facility] [address] [place] [address], [place] [phone] * (ABNORMAL) CREATININE - POCT INTERFACED (04/12/2024 4:24 PM CDT) Creatinine POCT 1.34(H) 0.30 - 1.30 mg/dL 04/12/2024 4:29 PM CDT [facility] eGFR 39(L) >=90 mL/min/1.7 3 m2 04/12/2024 4:29 PM CDT [facility] Blood BLOOD SPECIMEN / Unknown 04/12/2024 4:24 PM CDT 04/12/2024 4:28 PM CDT Provider Unknown LAB - POINT OF CARE ORDERABLES Performing Organization Address City/[facility]/ZIP Co de Phone Number [address] [address], [place] [phone] * XR CHEST CONTRACT READ (02/07/2023 12:27 PM CDT) Only the most recent of2 resultswithin the time period is included. Narrative [facility] - 02/07/2023 12:27 PM CDT No clinical interpretation provided, images available for review. Mitchell Moses MD DIAGNOSTIC IMAGING O RDERABLES [facility] Care Teams Bed Laster Relationship Specialty Start Date End Date Hayden Oreilly MD [address] [id number] PCP - General Family Medicine 08/17/21
--- NOTE | 2024-11-17 12:36 | ED_ITS ---
HPI - Weakness General Chief complaint: Weakness Stated complaint: weak Time Seen by Provider: 11/17/24 12:29 Source: patient and family Mode of arrival: ambulatory Limitations: no limitations History of Present Illness HPI Narrative: 84 YEARS OLD WHITE FEMALE CAME TO THE ED BY PRIVATE CAR WITH HER DAUGHTER COMPLAINING OF GENERAL WEAKNESS FOR 1 WEEK. ASSOCIATED WITH INTERMITTENT SHAKING. SHE DENIES ANY FEVER OR CHILLS OR NAUSEA VOMITING OR SHORTNESS OF BREATH OR CHEST PAIN. PATIENT WAS DISCHARGED FROM OUR FACILITY ON THE OF THIS MONTH WITH INFLUENZA A, PNEUMONIA AND COPD EXACERBATION.. PATIENT WAS DISCHARGED ON CEFDINIR LAST DOSE WAS 2 DAYS AGO PATIENT LIVES ALONE, DOES NOT SMOKE OR DRINK HISTORY OF COPD, HYPERTENSION, GERD, CORONARY ARTERY DISEASE, HYPOTHYROIDISM, CVA. AND DEPRESSION/ANXIETY Related Data Home Medications ?Medication ?Instructions ?Recorded ?Confirmed ?Last Taken ?Type albuterol sulfate 2.5 mg/3 mL 2.5 mg inhalation Q4-6H PRN 10/26/24 10/27/24 10/27/24 History (0.083 %) solution for nebulization shortness of breath or wheezing albuterol sulfate 90 mcg/actuation 2 puff inhalation Q4-6H PRN 10/26/24 10/27/24 10/27/24 History aerosol inhaler shortness of breath or wheezing alendronate 70 mg tablet 70 mg PO WEEKLY 10/26/24 10/27/24 Unknown History aspirin 81 mg chewable tablet 81 mg PO DAILY 10/26/24 10/27/24 Unknown History atorvastatin 40 mg tablet 40 mg PO QPM 10/26/24 10/27/24 Unknown History benzonatate 100 mg capsule 100 mg PO TID PRN cough 10/26/24 10/27/24 Unknown History cefdinir 300 mg capsule 300 mg PO Q12H 10/26/24 10/27/24 Unknown History clopidogrel 75 mg tablet 75 mg PO DAILY 10/26/24 10/27/24 Unknown History levothyroxine 125 mcg tablet 125 mcg PO DAILY 10/26/24 10/27/24 Unknown History meclizine 25 mg tablet 25 mg PO QID PRN dizziness 10/26/24 10/27/24 Unknown History pantoprazole 40 mg tablet,delayed 40 mg PO DAILY 10/26/24 10/27/24 Unknown History release valsartan 160 1 tablet PO DAILY 10/26/24 10/27/24 Unknown History mg-hydrochlorothiazide 25 mg tablet Allergies Allergy/AdvReac Type Severity Reaction Status Date / Time levofloxacin AdvReac Abdominal Verified 10/26/24 18:04 Pain Review of Systems 2 Review of Systems: All systems reviewed & are unremarkable except as noted in HPI and below PMFSH Past Medical History Medical History Common carotid artery stenosis (~04/2024) 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 CVA (cerebral vascular accident) (04/2024) Osteoporosis Essential hypertension GERD (gastroesophageal reflux disease) Hypothyroidism Emphysema/COPD Surgical History Surgical History Peripheral arterial disease with history of revascularization (~04/2024) Bilateral lower extremity stents Status post cataract extraction of both eyes with insertion of intraocular lens Status post open reduction with internal fixation of fracture Left patellar fracture History of loop recorder Status post urethral diverticulectomy History of appendectomy History of tonsillectomy and adenoidectomy History of bladder suspension procedure Family History Family History Sibling Asthma Father Diabetes mellitus Hypertension Social History Social History Social History: The patient been since 2023. She is a former smoker she smoked 2.5 packs of cigarettes per day but quit in 1993. She used to drink 3-4 alcoholic beverages a week in still will occasionally drink alcohol in moderation. She raised 5 children. 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 She still drives. She ambulates with a cane. Code status: Full code Surrogate decision maker: Meera Schultz (daughter) Smoking status: Former smoker Alcohol intake: former Substance use: never Do You Feel Safe in your Home?: Yes Lack of Transportation: No Lack of Food: Never True Current Housing: I Have Housing Concerned About Future Housing: No Difficulty Paying Gas/Electric Bills: No Difficulty Paying for Meds: No Currently Unemployed: No Education: High School Diploma/GED Difficulty w/ Childcare or Family Care: No Spiritual care concerns: No Exam 2 Narrative: GENERAL APPEARANCE: WELL-DEVELOPED, WELL-NOURISHED SKIN: NORMAL COLOR HEAD: NORMOCEPHALIC, NONTRAUMATIC EYES: CLEAR CONJUNCTIVA ENT: OROPHARYNX NORMAL, EARS NORMAL, NOSE NORMAL NECK: SUPPLE, NONTENDER CHEST AND RESPIRATORY: AIRWAY PATENT, NO RESPIRATORY DISTRESS, NO ACCESSORY MUSCLE USE, SCATTERED WHEEZING AND RHONCHI BILATERALLY HEART: REGULAR RATE/RHYTHM ABDOMEN: SOFT, NONTENDER, NO ORGANOMEGALY, QUIET BOWEL SOUNDS VASCULAR: NORMAL PERIPHERAL PULSES, NORMAL CAPILLARY REFILL. MUSCULOSKELETAL: NORMAL RANGE OF MOTION, NONTENDER BACK NEUROLOGIC: ALERT AND ORIENTED ?3, REAL ESTATE LEASING MANAGER IS NORMAL TESTED, NO GROSS MOTOR DEFICIT Course Vital Signs Vital signs: Vital Signs Temperature 36.6 C 11/17/24 11:50 Pulse Rate 101 H 11/17/24 11:50 Respiratory Rate 24 H 11/17/24 11:50 Blood Pressure 112/49 L 11/17/24 11:50 Pulse Oximetry 95 11/17/24 11:50 Oxygen Delivery Room Air 11/17/24 11:50 Temperature 36.6 C 11/17/24 11:50 Pulse Rate 89 11/17/24 14:10 Respiratory Rate 21 H 11/17/24 14:10 Blood Pressure 123/46 L 11/17/24 13:50 Pulse Oximetry 95 11/17/24 13:50 Oxygen Delivery Room Air 11/17/24 11:50 MDM - Weakness MDM Narrative Medical decision making narrative: PATIENT PRESENTS WITH GENERAL WEAKNESS VITAL SIGNS SHOWING HEART RATE OF 101, RESPIRATORY RATE IS 24 OTHERWISE WITHIN NORMAL LIMIT PHYSICAL EXAMINATION SHOWING A DEPRESSED AND GENERALLY WEAK LOOKING PATIENT. DIFFERENTIAL DIAGNOSIS INCLUDE DEHYDRATION, ELECTROLYTE IMBALANCE, DEPRESSION, PNEUMONIA, URINARY TRACT INFECTION, VIRAL SYNDROME BLOOD WORKUP TODAY INCLUDES CBC, CMP, TROPONIN SHOWED WBC 10.7 PATIENT ON PREDNISONE HEMOGLOBIN 9.4 BETTER THAN THE PREVIOUS READING, SODIUM 131, CREATININE 1.3 CONSISTENT WITH PREVIOUS READINGS URINALYSIS SHOWED NO EVIDENCE OF INFECTION CHEST X-RAY SHOWED QUESTIONABLE BASAL PNEUMONIA CT CHEST WITHOUT CONTRAST SHOWED MILD SCATTERED PATCHY GROUND-GLASS OPACITIES THAT MAY REPRESENT EDEMA OR INFECTION OVERLYING MODERATE EMPHYSEMA. PATIENT DOES NOT HAVE ANY FEVER OR CHILLS, WHITE COUNT WITHIN NORMAL LIMIT, PATIENT ALREADY ON PREDNISONE. PATIENT DENIES ANY SHORTNESS OF BREATH OR COUGHING OR CHEST PAIN, THE POSSIBILITY OF PNEUMONIA WOULD BE LESS LIKELY. PATIENT JUST FINISHED A COURSE OF CEFDINIR 2 DAYS AGO, STARTED ON LEVAQUIN BEFORE CEFDINIR AND COULD NOT FEEL IS OF COURSE. MY PLAN TO DISCHARGE PATIENT ON Z-YASIR FOR IN, CONTINUE HOME MEDICATIONS, PATIENT CURRENTLY LIVES ALONE, HER DAUGHTER PLANNING TO LEAVE WITH HER SO SHE CAN HAVE A COMPANY.. THE PT WAS DISCHARGED TO HOME.THE PT,S CONDITION UPON DISCHARGE WAS FAIR,EDUCATION WAS PROVIDED TO THE PT IN REFERENCE TO THE FINAL IMPRESSION,DISCHARGE STUDY RESULTS,TREATMENT,PROGNOSIS AND NEED FOR FOLLOW UP . Differential Diagnosis Differential diagnosis: Likely other ( ABOVE) Medical Records Attestation: I reviewed the patient's medical records. Lab Data Attestation: I reviewed the patient's lab results. 11/17/24 12:13 11/17/24 12:13 Labs: Lab Results 11/17/24 11/17/24 11/17/24 Range/Units 12:00 12:13 12:49 WBC 10.7 H (4.5-10.0) K/mm3 RBC 4.13 L (4.2-5.4) M/mm3 Hgb 9.4 L (12.0-15.0) g/dL Hct 32.0 L (37.0-47.0) % MCV 77.5 L (80-100) fl MCH 22.8 L (26-34) pg MCHC 29.4 L (32-36) g/dl RDW 17.8 H (11.5-14.5) % Plt Count 199 (150-375) k/mm3 MPV 10.0 (7.4-10.4) fl Immature Gran % (Auto) 0.9 H (0-0.5) % Neut % (Auto) 79.3 H (45.5-73.1) % Lymph % (Auto) 5.3 L (18.3-44.2) % [place] % (Auto) 12.5 H (2.6-8.5) % Eos % (Auto) 1.7 (0-4.4) % Baso % (Auto) 0.3 (0.2-1.2) % Lymph # (Auto) 0.57 L (0.9-3.2) K/mm3 [place] # (Auto) 1.3 H (0.1-0.6) K/mm3 Eos # (Auto) 0.2 (0-0.3) K/mm3 Baso # (Auto) 0.0 (0.0-0.1) K/mm3 Abs Immat Gran (auto) 0.10 H (0.00-0.031) K/mm3 Absolute Neuts (auto) 8.5 H (1.3-6.7) K/mm3 Absolute Nucleated RBC 0.000 (0.0-0.012) K/mm3 Band Neutrophils % Not Reportable Nucleated RBC % 0.0 (0.0-0.2) % Platelet Estimate Adequate (Adequate) Polychromasia 1+ Hypochromasia 1+ Anisocytosis 1+ Microcytosis 1+ (NORMAL) Ovalocytes 2+ Schistocytes None seen Sodium 131 L (137-145) mmol/L Potassium 4.3 (3.4-5.0) mmol/L Chloride 98 (98-107) mmol/L Carbon Dioxide 24 (22-30) mmol/L Anion Gap 9 (4-12) mmol/L BUN 27 H (7-17) mg/dL Creatinine 1.36 H (0.7-1.0) mg/dL Estim Creat Clear Calc 26 ml/min Estimated GFR 37 L (59 - ) Glucose 181 H (65-110) mg/dL Calcium 9.1 (8.4-10.2) mg/dL Total Bilirubin 1.4 H (0.2-1.3) mg/dL AST 25 (14-36) U/L ALT 24 (6-35) U/L Alkaline Phosphatase 56 (38-126) U/L Total Protein 6.0 L (6.3-8.2) g/dL Albumin 3.6 (3.5-5.1) g/dL Urine Color Yellow (Yellow) Urine Appearance Clear (Clear) Urine pH 5.5 (5.0-9.0) Ur Specific [place] 1.016 (1.001-1.035) Urine Protein 1+ H (Negative) mg/dL Urine Glucose (UA) Negative (Negative) mg/dL Urine Ketones Negative (Negative) mg/dL Ur Blood (Man) Negative (Negative) Urine Nitrate Negative (Negative) Urine Bilirubin Negative (Negative) Urine Urobilinogen 0.2 (<2.0) mg/dL Leukocyte Esterase Rfl Negative (Negative) JAM/UL Urine RBC 0-2 (0-2) /hpf Urine WBC 0-5 (0-3) /hpf Ur Squamous Epith Cells None seen (Few) /hpf Urine Bacteria None seen /hpf Urine Casts 3-5 Influenza A (RT-PCR) Negative (Negative) Influenza B (RT-PCR) Negative (Negative) RSV (RT-PCR) Negative (Negative) SARS-CoV-2 RNA (RT-PCR) Negative (Negative) ABG Data ABG results: 11/17/24 12:49 Puncture Site Right radial ABG pH 7.465 H ABG pCO2 31.4 L ABG pO2 64.4 L ABG PO2/FiO2 Ratio 3.07 ABG HCO3 22.1 ABG O2 Saturation 94.0 L ABG O2 Content 13.1 L ABG Base Excess -1.1 A-a Gradient 47.7 Oxyhemoglobin 90.8 Total Hemoglobin 10.2 L O2 Delivery Device Room air O2 Liters/Min Not Reportable FiO2 21 Imaging Data Radiologist's impression: Impressions Chest X-Ray 11/17/24 12:22 IMPRESSION: Prominent markings in the lower lobes with minimal opacification the lung bases which may indicate early pneumonia. Follow-up advised. Chest CT 11/17/24 14:20 IMPRESSION: Mild scattered patchy groundglass opacities that may represent edema or infection, overlying moderate emphysema. Scattered sub-6 mm pulmonary nodules, which require no additional follow-up unless the patient is at high risk, in which case consider an optional low-dose noncontrast CT of the chest in 12 months. ECG Data EKG #1: Attestation: I personally reviewed and interpreted this ECG as follows: ECG completion date: 11/17/24 ECG completion time: 14:05 Interpretation: EKG SHOWED SINUS TACHYCARDIA AT 103 BEATS PER MINUTE WITH FREQUENT PVCS Critical Care Time Critical Care Time Critical Care Time: No Discharge Plan Discharge Clinical Impression: Hyponatremia, Weakness, COPD (chronic obstructive pulmonary disease), Anxiety Patient Disposition: Home, Self-Care Condition: Stable Instructions: Antibiotic Form, Hyponatremia (ED), COPD (Chronic Obstructive Pulmonary Disease) (ED), Anxiety (ED) Additional Instructions: RETURN IF SYMPTOMS ARE WORSENING , CALL YOUR FAMILY PHYSICIAN FOR APPOINTMENT, TAKE TYLENOL NEEDED FOR ACHES AND PAIN, CONTINUE HOME MEDICATIONS. HOLD CELEXA FOR THE NEXT 5 DAYS Patient Language: Maldivian Prescriptions: New azithromycin [Zithromax] 250 mg tablet See Rx Instructions PO .COMPLEX Qty: 6 0RF Rx Instructions: take 500 mg today (day 1), then 250 mg for 4 days (days 2-5) No Action atorvastatin 40 mg tablet 40 mg PO QPM albuterol sulfate 2.5 mg /3 mL (0.083 %) solution for nebulization 2.5 mg inhalation Q4-6H PRN (Reason: shortness of breath or wheezing) alendronate 70 mg tablet 70 mg PO WEEKLY Rx Instructions: SUNDAYS clopidogrel 75 mg tablet 75 mg PO DAILY meclizine 25 mg tablet 25 mg PO QID PRN (Reason: dizziness) benzonatate 100 mg capsule 100 mg PO TID PRN (Reason: cough) pantoprazole 40 mg tablet,delayed release (DR/EC) 40 mg PO DAILY levothyroxine 125 mcg tablet 125 mcg PO DAILY aspirin 81 mg tablet,chewable 81 mg PO DAILY albuterol sulfate 90 mcg/actuation HFA aerosol inhaler 2 puff INHALATION Q4-6H PRN (Reason: shortness of breath or wheezing) cefdinir 300 mg capsule 300 mg PO Q12H valsartan-hydrochlorothiazide 160-25 mg tablet 1 tablet PO DAILY guaifenesin [Mucus Relief ER] 600 mg Tablet Extended Release 12hr 600 mg PO Q12HR Qty: 25 0RF citalopram [Celexa] 10 mg tablet 10 mg PO QAM Qty: 30 0RF prednisone 10 mg tablet 10 mg PO DAILY Qty: 20 0RF Rx Instructions: 4Tx2, 3Tx2d, 2Tx2d, 1Tx2d. alprazolam 0.25 mg Tablet 0.25 mg PO TID PRN (Reason: Anxiety) Qty: 10 0RF Follow-up/Referrals: PHYSICIAN NOT ON STAFF,NONSTAFF [Primary Care Provider] -
[2024-11-17 12:45] VITALS: PULSE 97
[2024-11-17 12:47] VITALS: BP 101/41; PULSE 99; RESP 24; O2SAT 94
[2024-11-17 12:48] LABS: Influenza A QL RT-PCR Negative (Negative); Influenza B QL RT-PCR Negative (Negative); RSV RNA, RT-PCR Negative (Negative); SARS-CoV-2 RNA PCR Negative (Negative)
[2024-11-17 12:52] LABS: Alveolar/Arterial O2 Gradient 47.7 mmHg; Base Excess ABG -1.1 mEq/l (+/-2.0); Device ROOM AIR; Fractional Inspired Oxygen 21 %; HCO3 ABG 22.1 mEq/l (22.0-26.0); Modified Allen's Test Pass; Oxygen Content ABG 13.1 %vol (16.0-22.0); Oxyhemoglobin 90.8 % THb (90.0-100.0); PCO2 ABG 31.4 mmHg (35.0-45.0); PO2 ABG 64.4 mmHg (80.0-100.0); PO2 FiO2 Ratio Arterial Blood 3.07 %; Site Drawn RIGHT RADIAL; Total Hemoglobin 10.2 g/dL (12.0-18.0); pH ABG 7.465 (7.350-7.450)
[2024-11-17 12:58] LABS: Add Urine Microscopic? YES; Appearance Urine Clear (Clear); Bacteria Urine None Seen /hpf; Bilirubin Urine Negative (Negative); Blood Urine Negative (Negative); Color Urine Yellow (Yellow); Glucose Urine UA Negative (Negative); Ketones Urine Negative (Negative); Leukocyte Esterase Ur Negative LEU/UL (Negative); Nitrate Urine Negative (Negative); Protein Urine 1+ mg/dL (Negative); RBC Urine 0-2 /hpf (0-2); Specific Grav Ur 1.016 (1.001-1.035); Squamous Epithelial Cell Urine None Seen /hpf (Few); Urobilinogen Urine 0.2 mg/dL (<2.0); WBC Urine 0-5 /hpf (0-3); pH Urine 5.5 (5.0-9.0)
[2024-11-17] MEDS: LACTATED RINGERS 1,000 ML 999 ML IV CONT (13:02)
[2024-11-17 13:12] LABS: Anisocytosis 1+; Microcytosis 1+ (NORMAL); Platelet Estimate Adequate (Adequate); Schistocytes None Seen
[2024-11-17 13:13] LABS: Hypochromasia 1+; Ovalocytes 2+
[2024-11-17 13:14] LABS: Polychromasia 1+
[2024-11-17 13:50] VITALS: BP 123/46; PULSE 92; RESP 24; O2SAT 95
[2024-11-17 14:04] VITALS: PULSE 92; RESP 23
[2024-11-17] MEDS: IPRATROPIUM 0.5 MG/ALBUTEROL SULFATE 2.5 MG AMPUL.NEB 3 ML INHALATION (14:04)
[2024-11-17 14:10] VITALS: PULSE 89; RESP 21
== END 2024-11-17 15:23 | disposition home or self-care (01) ==
PROVIDERS: Emergency Provider Emergency Medicine
DX: E87.1 Hypo-osmolality and hyponatremia (principal); R53.1 Weakness; J44.9 Chronic obstructive pulmonary disease, unspecified; I10 Essential (primary) hypertension; K21.9 Gastro-esophageal reflux disease without esophagitis; I25.10 Atherosclerotic heart disease of native coronary artery without angina pectoris; E03.9 Hypothyroidism, unspecified; F41.8 Other specified anxiety disorders; M81.0 Age-related osteoporosis without current pathological fracture; Z86.73 Personal history of transient ischemic attack (TIA), and cerebral infarction without residual deficits; Z87.891 Personal history of nicotine dependence; Z20.822 Contact with and (suspected) exposure to COVID-19
CPT/HCPCS: 36415; 36600; 71046; 71250; 80053; 81001; 82805; 85018; 85025; 87637; 93005; 94640; 96360; 99284; J7120

== ENCOUNTER 2025-01-10 05:30 | Inpatient (IN) | payer MEDICARE, SELFPAY ==
[2025-01-10] VITALS (25 sets, daily range): BP systolic 104–138; BP diastolic 53–92; PULSE 86–129; RESP 15–25; TEMP 36.3–36.5; O2SAT 91–100; BMI 29.5
--- NOTE | ~2025-01-10 | XR_ITS ---
Clinical Indication: Shortness of breath PA and lateral views of the chest: Comparison: 11/17/2024 Findings: The lungs are clear, without evidence of focal consolidation or pleural effusion. Cardiome diastinal silhouette is stable, with loop recorder. Mild compression deformity of T11 present.. Impression: Clear lungs. T11 compression deformity. Reviewed, dictated and finalized at location . Impression: Clear lungs. T11 compression deformity.
--- NOTE | ~2025-01-10 | CT_ITS ---
EXAMINATION: CT brain wo con DATE: 01/15/2025 11:56 INDICATION: Left arm weakness TECHNIQUE: Computed tomography (CT) of the head was performed without intravenous contrast. Sagittal and coronal reconstructions were performed. The mA was adjusted according to patient size. Iterative reconstruction technique was employed. The dose-length product was 529.67 mGy-cm. COMPARISON: head CT dated 01/20/2025 FINDINGS: No acute intracranial hemorrhage, acute infarction or abnormal extra axial fluid collection. There ar e a few scattered small old lacunar infarcts in the bilateral periventricular white matter along with moderate scattered white matter hypoattenuation consistent with chronic small vessel ischemic diseas e. A couple additional small old lacunar infarcts at the bilateral caudate nuclei. There are also few scattered bilateral old lacunar infarcts in the ventricular white matter. Symmetric prominence of th e sulci consistent with moderate age-appropriate diffuse cerebral volume loss. No mass/mass effect. C hanges of bilateral intraocular lens replacement. The orbits, paranasal sinuses and mastoid air cells are normal. Intracranial calcified cerebral atherosclerosis is noted. There are a couple bilateral f rontal osteomas IMPRESSION: 1. No acute intracranial process. 2. Moderate scattered white matter hypoattenuation consistent with chronic small vessel ischemic dise ase as well as a few scattered old lacunar infarcts in the bilateral periventricular white matter and caudate nuclei. Reviewed, dictated and finalized at location A. IMPRESSION: 1. No acute intracranial process. 2. Moderate scattered white matter hypoattenuation consistent with chronic smal l vessel ischemic disease as well as a few scattered old lacunar infarcts in th e bilateral periventricular white matter and caudate nuclei.
--- NOTE | ~2025-01-10 | US_ITS ---
EXAMINATION: US carotid duplex BI DATE: 01/17/2025 10:57 INDICATION: Right-sided stroke TECHNIQUE: Grayscale, color Doppler, and pulsed Doppler images of the cervical carotid arteries were obtained. The degree of vessel stenosis is placed in one of the following categories: normal, <50%, 5 0-69%, >=70% but less than near-occlusion, near-occlusion, or total occlusion. Note that percent sten osis relative to normal distal artery lumen diameter is indirectly measured from velocity measurement s as described by Jass, et al. Radiology 2003; 229:[id number]. COMPARISON: None. FINDINGS: RIGHT: The right common carotid artery (CCA) peak systolic velocity (PSV) is 59 cm/s. The right internal car otid artery (ICA) PSV is >250r cm/s. The right ICA end-diastolic velocity (EDV) is 23 cm/s. The right ICA/CCA PSV ratio is >4. Grayscale and color Doppler images yield an estimate of >=70% (but less renea n near occlusion) diameter reduction from plaque in the ICA. The external carotid artery (ECA) PSV is 71 cm/s. There is antegrade flow in the right vertebral artery. 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 Arterial waveform with delayed systolic upstrokes seen within a couple arteries in the region of the proximal left internal and external carotid arter ies. No flow identified on color Doppler in the region of the left vertebral artery. IMPRESSION: 1. >=70% (but less than near occlusion) stenosis in the right internal carotid artery. 2. Chronic complete occlusion of the left common carotid artery with parvus and tardus waveforms seen in a couple arteries in the expected location of the left external and internal carotid arteries whi ch could represent resupply via collaterals. There is also no identifiable flow within the left verte bral artery which may also be occluded. Consider further evaluation with carotid CT angiogram for mor e definitive determination. Reviewed, dictated and finalized at location A. IMPRESSION: 1. >=70% (but less than near occlusion) stenosis in the right internal carotid artery. 2. Chronic complete occlusion of the left common carotid artery with parvus and tardus waveforms seen in a couple arteries in the expected location of the lef t external and internal carotid arteries which could represent resupply via col laterals. There is also no identifiable flow within the left vertebral artery w hich may also be occluded. Consider further evaluation with carotid CT angiogra m for more definitive determination.
--- NOTE | ~2025-01-10 | CT_ITS ---
EXAMINATION: CT brain wo con DATE: 01/10/2025 08:14 INDICATION: Dizziness TECHNIQUE: Computed tomography (CT) of the head was performed without intravenous contrast. Sagittal and coronal reconstructions were performed. The mA was adjusted according to patient size. Iterative reconstruction technique was employed. The dose-length product was 605.33 mGy-cm. COMPARISON: None FINDINGS: No acute intracranial hemorrhage, acute infarction or abnormal extra axial fluid collection. There ar e a few scattered small old lacunar infarcts in the bilateral periventricular white matter along with moderate scattered white matter hypoattenuation consistent with chronic small vessel ischemic diseas e. Couple additional small old lacunar infarcts at the bilateral caudate nuclei. There are also few s cattered bilateral old lacunar infarcts in the ventricular white matter. Symmetric prominence of the sulci consistent with moderate age-appropriate diffuse cerebral volume loss. No mass/mass effect. Lilian nges of bilateral intraocular lens replacement. The orbits, paranasal sinuses and mastoid air cells a re normal. Intracranial calcified cerebral atherosclerosis is noted. There are a couple bilateral fro ntal osteomas IMPRESSION: 1. No acute intracranial process. 2. Moderate scattered white matter hypoattenuation consistent with chronic small vessel ischemic dise ase as well as a few scattered old lacunar infarcts in the bilateral periventricular white matter and caudate nuclei. Reviewed, dictated and finalized at location A. IMPRESSION: 1. No acute intracranial process. 2. Moderate scattered white matter hypoattenuation consistent with chronic smal l vessel ischemic disease as well as a few scattered old lacunar infarcts in th e bilateral periventricular white matter and caudate nuclei.
--- OUTSIDE RECORDS SUMMARY | 2025-01-10 05:33 | XMS_ITS | Encounter Summary ---
Author Organization [facility] Healthcare Address [address] [place] [address] Care Team Providers Care [employer] Name Role Phone Hayden Oreilly MD Primary Care Provi reinn Pipo Richardson MD Unavailable [phone] Layne MauriceW Unavailable [phone] Reason for Visit * Auth/Cert (Routine) Specialty Diagnoses / Procedures Referred By Contac t Referred To Contact Referral ID Status Reason Start Date Expiration Date Visits Re quested Visits Authorized [id number] 1 8 Encounter Details Date Type Department Care Team (Late st Contact Info) Description 01/09/2025 10:00 AM CDT Home Care Visit [facility] [address] [place] [address] Surya Ibrahim, PT PT HOME VISIT Social History Tobacco Use Types Packs/Day Years Used Date Smoking Tobacco: Former Cigarettes Q uit: 09/04/1992 Smokeless Tobacco: Never Comments:Quit 20 years ago Alcohol Use Standard Drinks/Week Comments Not Currently 0 (1 standard drink = 0.6 oz pur e alcohol) OASIS D0700: Social Isolation Answer Da te Recorded Frequency of experiencing loneliness or isolatio n Never 12/31/2024 OASIS A1250: Transportation Answer Date Recorded Lack of Transportation (Medical) Yes 12/31/2024 Lack of Transportation (Non-Medical) No 12/31/2024 Patient Unable or Declines to Respond No 12/31/2024 OASIS B1300: Health Literacy Answer Ulisses e Recorded Frequency of needing help to read materials from doctor or pharmacy Always 12/31/2024 [facility] Utilities Answer Date Recorded In the past 12 months has th e electric, gas, oil, or water company threatened to shut off services in your home? No 11/28/2024 Social Connection and Isolat ion Panel [NHANES] Answer Date Recorded In a typical week, how many times do you talk on the phone with family, friends, or neighbors? More than three times a week 11/28/2024 How often do you get togethe r with friends or relatives? More than three times a week 11/28/2024 How often do you attend chur ch or voodoo services? Never 11/28/2024 Do you belong to any clubs o r organizations such as lutheran groups, unions, fraternal or athletic groups, or school groups? No 11/28/2024 How often do you attend meet ings of the clubs or organizations you belong to? Never 11/28/2024 Are you , , di vorced, , never , or living with a partner? 11/28/2024 AUDIT-C Answer Date Recorded Q1: How often [...] care, and heating? Not hard at all 11/28/2024 PHQ-2 Answer Date Recorded PHQ-2 Total Score (If total score is 3 or more points, staff should administer the PHQ-9) 0 07/08/2024 Hunger Vital Sign Answer Date Recorded Within the past 12 months, y ou worried that your food would run out before you got the money to buy more. Never true 11/29/19 25 Within the past 12 months, t he food you bought just didn't last and you didn't have money to get more. Never true 11/28/2024 PRAPARE - Transportation Answer Date Re corded In the past 12 months, has l ack of transportation kept you from medical appointments or from getting medications? No 11/03 In the past 12 months, has l ack of transportation kept you from meetings, work, or from getting things needed for daily living? No 11/28/2024 Housing Stability Vital Sign Answer Ulisses e Recorded In the last 12 months, was t here a time when you were not able to pay the mortgage or rent on time? No 11/28/2024 In the past 12 months, how m any times have you moved where you were living? 0 11/28/2024 At any time in the past 12 m [facility], were you homeless or living in a intermediate (including now)? No 11/28/2024 Personal Safety Answer Date Recorded Have you ever been in or are you currently in a harmful physical or emotional relationship or is someone making you feel afraid or unsafe? 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 LIFE SCIENCES DIRECTOR Gender Identity Not on file Sexual Orientation Not on file documented as of this encounter Last Filed Vital Signs Vital Sign Reading Time Taken Comments Blood Pressure 118/58 01/09/2025 10:10 AM CDT Pulse 97 01/09/2025 10:10 AM CDT Temperature 36 C (96.8 F) 01/09/2025 10:10 AM CDT Respiratory Rate 18 01/09/2025 10:10 AM CDT Oxygen Saturation 97% 01/09/2025 10:10 AM CDT Inhaled Oxygen Concentration - - Weight - - Height - - Body Mass Index - - documented in this encounter Miscellaneous Notes * Home Health Visit Narrative - Surya Ibrahim, PT - 01/09/2025 10:28 AM CDT Patient present for homecare PT treatment. Per patient, she is having a bad day . More dizzy than usual. Patient blames this on her Lasix. Educated to stay hydrated, reminded that meclizine in on her medication list and patient took one tablet during PT visit. Reports that SN will be arriving to see her today after my visit. Educated to discuss symptoms with SN, contact MD office as needed if symptoms don't improve. patient verbalizes good understanding of instructions and provides safe verbalization/return demonstration of instructions. Patient was able to tolerate seated exercises today. Will attempt to progress to standing ther-ex next visit as tolerated dependent on symptoms. Per 01/07/[address] Quiles, patient is to stop taking aspirin and clopidogrel. Start taking Eliquis 5 mg twice a day. Follow up with Dr. Quiles in 6 months. Alternatives would be Xarelto or Pradaxa if the Eliquis is too expensive. Patient has not stopped aspirin or clopidogrel yet, as she is waiting until she gets Eliquis or alternative medication. Educated to get appropriate medication per microbiology supervisor recommendations today * Home Health Plan for Next Visit - Surya Ibrahim, PT - 01/09/2025 10:08 AM CDT Reason for today's visit: PT treatment Discussed plan of care interventions with the patient, who remains agreeable. Discharge planning: d/c when goals are met. Plan for next visit: LE strengthening focus, progressing to standing ther-ex as tolerated. documented in this encounter Plan of Treatment Not on file documented as of this encounter Goals Goal Patient Goal Type Associated Problems Recent Progress Patient-Stated? Author ACO Goal - Patient will be able to safely move about their home ACO Care Management On track(2024 9:53 AM CDT) Layne Gordon, LONG CHAIN QUILLER TENDER Note: Problem: Barriers to Home Accessibility Interventions: - Assess home accessibility barriers. - Identify equipment or modifications needed to address barrier(s). - Research available resources to improve home accessibility. - Refer to appropriate resources or alternate housing options. documented as of this encounter Visit Diagnoses Not on filedocumented in this encounter Home Health Visit - Care Plan Visit Details Visit Type -PT Home Visit Discipline -Physical Therapy Problems Problem Description Start Date Status Goals Interve ntions Pressure Prevention Disciplines: Skilled Disciplines Pressure Prevention 12/31/2024 Active 1 goal linked to scheduled/documen antione intervention 1 goal intervention scheduled/documen antione in this visit Monitor patient's vital signs every home health visit Disciplines: Skilled Disciplines, SN, PT, OT, DRYWALL STRIPPER, WHEEL BUFFER Monitor patient's vital signs every home health visit. 12/31/2024 Active 1 goal linked to scheduled/documen antione intervention 1 goal intervention scheduled/documen antione in this visit Infection Prevention Disciplines: Skilled Disciplines Infection Prevention 12/31/2024 Active 1 goal linked to scheduled/documen antione intervention 2 goal interventions scheduled/documen antione in this visit Fall Precautions/Safe ty Concerns Disciplines: Skilled Disciplines Fall precautions and general safety 12/31/2024 Active 1 goal linked to scheduled/documen antione intervention 1 goal intervention scheduled/documen antione in this visit PT Impaired Functional Mobility/Balance Disciplines: Physical Therapy Impaired functional mobility/balance 01/03/2025 Active - 3 problem interventions scheduled/documen antione in this visit Goals Goal Associated Problem Outcome Goal Met? Visit Notes Prevent development of pressure injuries Description: senior living goal: The patient will maintain intact skin and avoid the development of pressure injuries within 1 month Short term goal: The patient/caregiver will understand and adhere to pressure prevention interventions within 2 visits Pressure Prevention No Measure vital signs during every home health visit during episode of care Description: Home security sales manager to measure vital signs during every home health visit during episode of care. Monitor patient's vital signs every home health visit No Verbalize signs of infection Description: Patient/caregiver will demonstrate knowledge of infection prevention strategies by verbalizing signs and symptoms of infection. Infection Prevention No Demonstrate fall and safety precautions Description: Patient/caregiver maintains safe home environment as evidenced by remaining free from falls, injury due to falls, demonstrating safety precautions, and identifying strategies to reduce falls by 01/21/25 Fall Precautions/Safety Concerns No Interventions Intervention Associated Problem/Goal Status Variance Visit Notes Instruct on Pressure Prevention Description: Instruct patient/caregiver on inspecting the skin regularly for signs of impaired skin integrity, repositioning the patient on an individualized schedule according to the patient's tissue tolerance, skin condition, mobility, medical condition, and treatment goals. Avoid vigorous massage and emphasize the importance of increasing activity and mobility. Avoid using donut-shaped devices and foam cutouts for pressure redistribution. Determine if patient is using or needs a pressure reduction surface. Instruct patient/caregiver on using moisture barriers and absorbent pads/briefs as needed, avoiding prolonged skin contact with wet materials, and cleaning and drying skin thoroughly after incontinence episodes. If patient is malnourished instruct patient/caregiver on physician ordered diet, increased fluid intake if not contraindicated, and a list of possible protein sources to promote skin integrity. Problem:Pressure Prevention Goal:Prevent development of pressure injuries Completed intructed to remain clean and dry, ambulate frequently, change position frequently. patient verbalizes good understanding of instructions and provides safe verbalization/return demonstration of instructions. Monitor Vital Signs Description: Monitor blood pressure, pulse, oxygen saturation, respirations Problem:Monitor patient's vital signs every home health visit Goal:Measure vital signs during every home health visit during episode of care Completed Educate Patient on Infection Prevention Description: Instruct patient on signs and symptoms of infection IE: fever, odor, change in color, increased amount of drainage, purulent drainage, warmth. Problem:Infection Prevention Goal:Verbalize signs of infection Completed Instructed patient on signs and symptoms of infection including fever, odor, change in color, increased amount of drainage, purulent drainage, warmth. patient verbalizes good understanding of instructions and provides safe verbalization/return demonstration of instructions. Educate Family on Infection Prevention Description: Instructed family on signs and symptoms of infection IE: fever, odor, change in color, increased amount of drainage, purulent drainage, warmth. Problem:Infection Prevention Goal:Verbalize signs of infection Completed n/a - family home but not present with patient during therapy High Fall Risk Precautions Description: Instruct patient/caregiver to use proper lighting in all areas, stand/sit up slowly, use appropriate footwear when walking, use proper assistive devices, and to keep pathways clear of cords and clutter to prevent falls. Remove/secure throw rugs. Educate patient on medications and disease processes that increase fall risk, using corrective lenses as prescribed, placing hard to reach items within reach, what to do in the event of a fall and to report any falls to the home health agency. Problem:Fall Precautions/Safety Concerns Goal:Demonstrate fall and safety precautions Completed Instructed patient/caregiver to use proper lighting in all areas, stand/sit up slowly, use appropriate footwear when walking, use proper assistive devices, and to keep pathways clear of cords and clutter to prevent falls. Remove/secure throw rugs. Educate patient on medications and disease processes that increase fall risk, using corrective lenses as prescribed, placing hard to reach items within reach, what to do in the event of a fall and to report any falls to the home health agency. Home Exercise Program (HEP) Description: Instruct patient/caregiver and perform HEP. Problem:PT Impaired Functional Mobility/Balance Completed instructed to continue HEP X 10-20 reps BID as tolerated. issued handouts for reference. patient verbalizes good understanding of instructions and provides safe verbalization/return demonstration of instructions Gait/Stair Training Description: Instruct patient/caregiver and perform gait/stair training. Problem:PT Impaired Functional Mobility/Balance Completed instructed to rest as needed, gradually increase walking program as tolerated and use assistive device as needed for safety. patient verbalizes good understanding of instructions and provides safe verbalization/return demonstration of instructions. Therapeutic Exercise Description: Perform therapeutic exercise, progressing as tolerated. Problem:PT Impaired Functional Mobility/Balance Completed Seated ankle pumps, marches, hip abduction, hip IR/ER, long arc quads x 10 repetitions bilateral lower extremities. documented in this encounter Care Teams [employer] Relationship Specialty Start Date End Date Hayden Oreilly MD [address] [facility] [address] [place] [address] PCP - General Family Medicine 01/31/19 Pipo Richardson MD [address] [place] [address] Surgeon Vascular Surgery 02/27/24 Layne Maurice, LONG CHAIN QUILLER TENDER [address] [place] [address] Swing Tender 11/22/24 documented as of this encounter
--- OUTSIDE RECORDS SUMMARY | 2025-01-10 05:33 | XMS_ITS | Encounter Summary ---
Author Organization [facility] Healthcare Address [address] [place] [address] Care Team Providers Care Slack Line Yarder Name Role Phone Hayden Oreilly MD Primary Care Provi erinn Pipo Richardson MD Unavailable [phone] Layne MauriceW Unavailable [phone] Encounter Details Date Type Department Care Team (Late st Contact Info) Description 01/08/2025 Results Follow-Up [facility] Medical Group Pulmonology [address] [facility] [address] [place] [id number] Nasreen Watson MD [address] [place] [address] [address] [place] [address] Social History Tobacco Use Types Packs/Day Years [...] materials from doctor or pharmacy Always 12/31/[address] [facility] Utilities Answer Date Recorded In the [...] often do you attend chur ch or rastafarian services? Never 11/28/2024 Do you belong to any clubs o r organizations such as yarsanism groups, unions, fraternal or athletic groups, or [...] any time in the past 12 m [place], were you homeless or living in a chcf (including now)? No 11/28/2024 Personal Safety Answer Date Recorded Have you ever been in or are you currently in a harmful physical or emotional relationship or is someone making you feel afraid or unsafe? 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 CHIEF MATE Gender Identity Not on file Sexual Orientation Not on file documented as of this encounter Plan of Treatment Not on file documented as of this encounter Goals Goal Patient Goal Type Associated Problems Recent Progress Patient-Stated? Author ACO SW Goal - Patient will be able to safely move about their home ACO Care Management On track(2024 9:53 AM CDT) No Layne Maurice, WAXED BAG MACHINE OPERATOR Note: Problem: Barriers to Home Accessibility Interventions: - Assess home accessibility barriers. - Identify equipment or modifications needed to address barrier(s). - Research available resources to improve home accessibility. - Refer to appropriate resources or alternate housing options. documented as of this encounter Visit Diagnoses Not on filedocumented in this encounter Care Teams Slack Line Yarder Relationship Specialty Start Date End Date Hayden Oreilly MD [address] [facility] [address] [place] [address] PCP - General Family Medicine 01/31/19 Pipo Richardson MD [address] [place] [address] Surgeon Vascular Surgery 02/27/24 Layne Maurice, WAXED BAG MACHINE OPERATOR [address] [place] [address] Wind Up Worker 11/22/24 documented as of this encounter
--- OUTSIDE RECORDS SUMMARY | 2025-01-10 05:33 | XMS_ITS | Encounter Summary ---
Author Organization [facility] Healthcare Address [address] [place] [address] Care Team Providers Care Divine Healer Name Role Phone Hayden Oreilly MD Primary Care Provi erinn Pipo Richardson MD Unavailable [phone] Layne MauriceW Unavailable Reason for Visit * Reason Onset Date Comments Forms Request 01/06/2025 Encounter Details Date Type Department Care Team (Late st Contact Info) Description 01/06/2025 Telephone [facility] Medical Group Family Medicine [address] [place] [address] Hayden Oreilly MD [address] [place] [address] Forms Request Social History Tobacco [...] materials from doctor or pharmacy Always 12/31/2024 [facility] Utilities Answer Date Recorded In [...] often do you attend chur ch or zoroastrian services? Never 11/28/2024 Do you belong to any clubs o r organizations such as anabaptism groups, unions, fraternal or athletic groups, or [...] any time in the past 12 m [facility], were you homeless or living in a senior living (including now)? No 11/28/2024 Personal Safety Answer Date Recorded Have you ever been in or are you currently in a harmful physical or emotional relationship or is someone making you feel afraid or unsafe? 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 ACCORDION MAKER Gender Identity Not on file Sexual Orientation Not on file documented as of this encounter Miscellaneous Notes * Telephone Encounter - Jessica Catalan - 01/06/2025 11:01 AM CDT Forms Request Form requested: Other Form Form Name: Transportation Date needed: as soon as possible. How is patient delivering to office: Drop off at practice Who is form being returned to? Patient How to return form to patient:pickup at practice Additional Comments: Patient will be bringing form for transportation back up as they are needing ICD 10 codes added Does message need to be routed? Yes-Action Needed documented in this encounter Plan of Treatment Not on file documented as of this encounter Goals Goal Patient Goal Type Associated Problems Recent Progress Patient-Stated? Author ACO SW Goal - Patient will be able to safely move about their home ACO Care Management On track(2024 9:53 AM CDT) No Layne Maurice, METAL BUILDINGS ASSEMBLER Note: Problem: Barriers to Home Accessibility Interventions: - Assess home accessibility barriers. - Identify equipment or modifications needed to address barrier(s). - Research available resources to improve home accessibility. - Refer to appropriate resources or alternate housing options. documented as of this encounter Visit Diagnoses Not on filedocumented in this encounter Care Teams Divine Healer Relationship Specialty Start Date End Date Hayden Oreilly MD [address] [place] [address] PCP - General Family Medicine 01/31/19 Pipo Richardson MD [address] [place] [address] Surgeon Vascular Surgery 02/27/24 Layne Maurice, METAL BUILDINGS ASSEMBLER [address] [place] [address] Wagon Washer 11/22/24 documented as of this encounter
--- OUTSIDE RECORDS SUMMARY | 2025-01-10 05:33 | XMS_ITS | Clinical Summary ---
Author Organization [facility] Address [address] [place] [address] Care Team Providers Care Sponge Fisherman Name Role Phone Hayden Oreilly MD Primary Care Provi erinn Source Comments [facility],non-owned Affiliates and Associated Physician Practices is amultiple site organization consisting of ambulatory clinics and hospital sitesin [place], [place], [place] and [place]. This disclosure is being madepursuant to the Care Everywhere program and may not contain all information available regarding this patient. Last updated 18.[facility] Allergies No known active allergies Medications * Be aware that medications may not be up to date on this document. Alwaysverify current medications with the patient. albuterol (Proventil;Stephane tolin) (2.5 MG/3ML) 0.083% nebulizer solution Inhale 2.5 (two and one-half) mg by mouth every 6 hours as needed Active levothyroxine (Synthroid) 125 MCG tablet Take 1 (one) tablet by mouth daily before breakfast 02/29/20 23 Active pantoprazole EC (Protonix) 40 MG tablet Take 1 (one) tablet by mouth once daily 01/05/20 24 Active valsartan-hydr oCHLOROthiazid e (Diovan HCT) 160-25 MG tablet Take 1 (one) tablet by mouth once daily 02/17/20 24 Active alendronate (Fosamax) 70 MG tablet Take 1 (one) tablet by mouth every 7 days before meal 02/12/20 24 Active Cholecalcifero l 50 MCG (1999 UT) Take 2.5 (two and one-half) tablets by mouth once daily Active meloxicam (Mobic) 15 MG tablet Take 1 (one) tablet by mouth once daily 12/07/19 24 Active atorvastatin (Lipitor) 40 MG tablet Take 1 (one) tablet by mouth at bedtime 90 tablet 3 04/15/20 24 Active acetaminophen (Tylenol) 325 MG tablet Take 1 (one) tablet by mouth every 4 hours as needed for Fever or Pain Maximum allowable Acetaminophen amount = 4 Grams (4000 mg) / 24 hours. Active albuterol HFA (ProAir HFA) 108 (90 Base) MCG/ACT inhaler Inhale 180 mcg by mouth 12/24/19 25 Active ALPRAZolam (Xanax) 0.25 MG tablet Take 1 (one) tablet by mouth 12/05/19 25 Active benzonatate (Tessalon) 100 MG capsule Take 1 (one) capsule by mouth 09/23/19 25 Active docusate sodium (Docuprene) 100 MG tablet Take 1 (one) tablet by mouth once daily 12/24/19 25 Active Fluticasone-Um eclidin-Vilant (Trelegy Ellipta) 100-62.5-25 MCG/ACT 1 puff(s), Inhale, Daily, 0 Refill(s), Indication: COPD 12/24/19 25 Active albuterol-ipra tropium (Duo-Neb) 0.5-2.5 (3) MG/3ML nebulizer solution 3 mL 12/24/19 25 Active metOLazone (Zaroxolyn) 2.5 MG tablet Take 2 (two) tablets by mouth 12/27/19 25 Active meclizine (Antivert) 25 MG tablet Take 1 (one) tablet by mouth 09/10/19 25 Active polyethylene glycol 3350 (Miralax) 17 GM/SCOOP powder Take 17 (seventeen) g by mouth once daily as needed Active furosemide (Lasix) 40 MG tablet Take 1 (one) tablet by mouth once daily 90 tablet 3 01/08/20 25 Active apixaban (Eliquis) 5 MG tablet Take 1 (one) tablet by mouth 2 times daily 180 tablet 3 01/08/20 25 Active aspirin (Aspirin) 81 MG chew tablet Take 1 (one) tablet by mouth once daily 90 tablet 3 04/16/20 24 025 Discontin ued(Tx Complete) clopidogrel (plaVIX) 75 MG tablet Take 1 (one) tablet by mouth once daily 90 tablet 3 04/16/20 24 025 Discontin ued(Tx Complete) furosemide (Lasix) 40 MG tablet Take 1 (one) tablet by mouth once daily 025 Discontin ued(Reord er) Active Problems Problem Noted Date Diagnosed Date Cerebrovascular accident (CVA) 05/01/2024 Carotid artery occlusion 04/14/2024 Carotid occlusion, left 04/14/2024 Acute ischemic stroke 04/13/2024 Carotid stenosis 04/13/2024 Weakness 04/12/2024 Numbness and tingling 04/12/2024 COPD (chronic obstructive pulmonary disease) 05/2024 Encounters Date Type Department Care Team Description 01/07/2025 10:40 AM CDT Office Visit [facility] - Cardiology [address] [place] [phone] Katie Quiles MD Atrial fibrillation, unspecified type (HCC) (Primary Dx) 01/07/2025 Travel 12/12/2024 1:10 AM CDT Clinical Support [facility] - Cardiology [address] [place] [phone] Cerebrovascular accident (CVA), unspecified mechanism (HCC) 11/07/2024 1:10 AM STEELWORKER Clinical Support [facility] - Cardiology [address] [place] [phone] Cerebrovascular accident (CVA), unspecified mechanism from Last 3 Months Social History Tobacco [...] Recorded Patient Health Questionnaire-2 Score 0 04/14/2024 [facility] - Occupational Stress Questionnaire Answer Date Recorded [...] in a fpc (including now)? No 04/12/2024 Comments No Sex and Gender Information Value Date Recorded Sex Assigned at Not on file Legal Sex Female 6:52 PM STEELWORKER Gender Identity Not on file Sexual Orientation Not on file Last Filed Vital Signs Vital Sign Reading Time Taken Comments Blood Pressure 130/62 01/07/2025 10:02 AM CDT Pulse 61 01/07/2025 10:02 AM CDT Temperature 36.6 C (97.9 F) 04/15/2024 4:34 PM CDT Respiratory Rate 12 06/07/2024 10:45 AM CDT Oxygen Saturation 91% 01/07/2025 10:02 AM CDT Inhaled Oxygen Concentration - - Weight 73 kg (161 lb) 01/07/2025 10:02 AM CDT Height 157.5 cm (5' 2 ) 01/07/2025 10:02 AM CDT Body Mass Index 29.45 01/07/2025 10:02 AM CDT Plan of Treatment Upcoming Encounters Date Type Department Care Team (Late st Contact Info) Description 01/16/2025 1:10 AM CDT Clinical Support [facility] - Cardiology [address], [address] [phone] 02/20/2025 1:10 AM CDT Clinical Support [facility] - Cardiology [address], [address] [phone] 03/27/2025 1:10 AM CDT Clinical Support [facility] - Cardiology [address], [address] [phone] 05/01/2025 1:10 AM CDT Clinical Support [facility] - Cardiology [address], [address] [phone] 06/05/2025 1:10 AM CDT Clinical Support [facility] - Cardiology [address], [address] [phone] 07/08/2025 11:20 AM STEELWORKER Office Visit [facility] - Cardiology [address], [address] [phone] Katie Quiles MD [facility] [address] Health Maintenance Due Date Last Done Comments [...] this topic Medical Devices Implanted Type Area Deck Engine Operator Device Identifier Shelf Expiration Date Model / Serial / Lot Rcdr Crd Linq Ii Ins - [id number] Implanted:Qty: 1 on 04/15/2024 by Katie Quiles MD at [facility] [employer] [id number] 08/22/2025 LNQ22 / [id number] / [id number] Procedures Procedure Name Priority Date/Time Associated Diagnosis Comments [place] [facility] DEVICE INTERROGAT REMOTE Routine 12/21/2024 5:19 PM CDT Cerebrovascular accident (CVA), unspecified mechanism (HCC) CARDIAC PROCEDURE ORDER 12/09/2024 CARDIAC PROCEDURE ORDER 12/02/2024 [place] [facility] DEVICE INTERROGAT REMOTE Routine 11/17/2024 2:44 PM CDT Cerebrovascular accident (CVA), unspecified mechanism CARDIAC PROCEDURE ORDER 11/04/2024 from Last 3 Months Results * [place] [facility] DEVICE INTERROGAT REMOTE (12/21/2024 5:19 PM CDT) Narrative Herman Bailey MD - 12/21/2024 5:19 PM CDT Herman Bailey MD 12/21/2024 5:20 PM Dear Ghazal Valadez, I reviewed the remote interrogation of your loop recorder. Your device's sensing is appropriate and stable. During this most recent monitored period (11/04/2024 to 12/09/2024), your atrial fibrillation/tachycardia burden was 0.8%.Your last episode of atrial fibrillation ws on 11/27/2024 and it lasted for about 6 minutes. Device function is normal, no programming changes are required. You should consider starting a blood thinner. Please call our offices if you have any further questions. Sincerely, Herman Bailey 12/21/2024 us James Bazan MD PROCEDURE/MINOR SURGICAL ORDERAB LES Final Result * CARDIAC PROCEDURE ORDER (12/09/2024) Only the most recent of3 resultswithin the time period is included. Narrative 12/09/2024 Ordered by an unspecified provider. us Scanned Document CARDIAC SERVICES ORDERABLES Fin al Result * [place] [facility] DEVICE INTERROGAT REMOTE (11/17/2024 2:44 PM CDT) Narrative Herman Bailey MD - 11/17/2024 2:44 PM CDT Herman Bailey MD 11/17/2024 2:45 PM Dear Ghazal Valadez, I reviewed the remote interrogation of your loop recorder. Your device's sensing is appropriate and stable. During this most recent monitored period ending on 11/04/2024 your atrial fibrillation/tachycardia burden was 0% and you had no significant arrhythmias. You only had a 5 second episode of SVT on 10/21/2024 @ 18:19 Device function is normal, no programming changes are required, and no medications will need to be changed. Please call our offices if you have any further questions. Sincerely, Herman Bialey 11/17/2024 Herman Bailey MD PROCEDURE/MINOR SURGICAL ORDERAB LES Final Result from Last 3 Months Insurance MEDICARE Advance Directives * Full Code (Latest Code Status on File) Date Activated Date Inactivated Comments 04/12/2024 4:25 PM 04/15/2024 7:23 PM Care Teams Sponge Fisherman Relationship Specialty Start Date End Date Hayden Oreilly MD [address] [address] PCP - General Family Medicine 08/17/21
--- OUTSIDE RECORDS SUMMARY | 2025-01-10 05:33 | XMS_ITS | Encounter Summary ---
Author Organization [facility] Address [address] [place] [address] Care Team Providers Care Weed Burner Name Role Phone Hayden Oreilly MD Primary Care Provi erinn Pipo Richardson MD Unavailable [phone] Layne MauriceW Unavailable [phone] Reason for Visit * Auth/Cert (Routine) Specialty Diagnoses / Procedures Referred By Contac t Referred To Contact Referral ID Status Reason Start Date Expiration Date Visits Re quested Visits Authorized [id number] 1 8 Encounter Details Date Type Department Care Team (Late st Contact Info) Description 01/09/2025 12:30 PM CDT Home Care Visit [facility] [address] [address] [address] [place] [address] Yumiko Guevara LPN SN HOME VISIT Social History Tobacco Use Types [...] materials from doctor or pharmacy Always 12/31/2024 [facility] Utilities Answer Date Recorded In the [...] often do you attend chur ch or gnosticism services? Never 11/28/2024 Do you belong to [...] were you homeless or living in a group home (including now)? No 11/28/2024 Personal Safety Answer Date Recorded Have you ever been in or are you currently in a harmful physical or emotional relationship or is someone making you feel afraid or unsafe? 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 Gender Identity Not on file Sexual Orientation Not on file documented as of this encounter Last Filed Vital Signs Vital Sign Reading Time Taken Comments Blood Pressure 125/70 01/09/2025 11:32 AM CDT Pulse 87 01/09/2025 11:32 AM CDT Temperature 36.3 C (97.4 F) 01/09/2025 11:32 AM CDT Respiratory Rate 20 01/09/2025 11:32 AM CDT Oxygen Saturation 97% 01/09/2025 11:32 AM CDT Inhaled Oxygen Concentration - - Weight - - Height - - Body Mass Index - - documented in this encounter Miscellaneous Notes * Home Health Plan for Next Visit - Yumiko Guevara LPN - 01/09/2025 11:36 AM CDT Reason for today's visit COPD Discuss plan of care with patient Discharge planning interventions met Plan for next visit COPD assess documented in this encounter Plan of Treatment Not on file documented as of this encounter Goals Goal Patient Goal Type Associated Problems Recent Progress Patient-Stated? Author ISMAO UZMA Goal - Patient will be able to safely move about their home ACO Care Management On track(2024 9:53 AM CDT) Layne Gordon, BOARDER STEAM Note: Problem: Barriers to Home Accessibility Interventions: - Assess home accessibility barriers. - Identify equipment or modifications needed to address barrier(s). - Research available resources to improve home accessibility. - Refer to appropriate resources or alternate housing options. documented as of this encounter Visit Diagnoses Not on filedocumented in this encounter Home Health Visit - Care Plan Visit Details Visit Type -SN Home Visit Discipline -Intermediate Problems Problem Description Start Date Status Goals Interve ntions Pressure Prevention Disciplines: Skilled Disciplines Pressure Prevention 12/31/2024 Active 1 goal linked to scheduled/docume nted intervention 1 goal intervention scheduled/documen antione in this visit Medications Disciplines: Intermediate Management of home medications 12/31/2024 Active 1 goal linked to scheduled/docume nted intervention 1 goal intervention scheduled/documen antione in this visit Monitor patient's vital signs every home health visit Disciplines: Skilled Disciplines, SN, PT, OT, INBOUND TELEMARKETER, NAIL MILL WORKER Monitor patient's vital signs every home health visit. 12/31/2024 Active 1 goal linked to scheduled/docume nted intervention 1 goal intervention scheduled/documen antione in this visit Multidisciplinar y Case Conference Disciplines: Skilled Disciplines Concurrently discusses plan of treatment and coordinate patient centered care 12/31/2024 Active 1 goal linked to scheduled/docume nted intervention Infection Prevention Disciplines: Skilled Disciplines Infection Prevention 12/31/2024 Active 1 goal linked to scheduled/docume nted intervention 2 goal interventions scheduled/documen antione in this visit Fall Precautions/Safe ty Concerns Disciplines: Skilled Disciplines Fall precautions and general safety 12/31/2024 Active 1 goal linked to scheduled/docume nted intervention 1 goal intervention scheduled/documen antione in this visit Knowledge deficit Disciplines: Intermediate Lack of knowledge or resources to effectively manage disease process 12/31/2024 Active 1 goal linked to scheduled/docume nted intervention 3 goal interventions scheduled/documen antione in this visit Problems with Activity - COPD Disciplines: Intermediate Decreased tolerance to normal activities related to dyspnea and fatigue 12/31/2024 Active 1 goal linked to scheduled/docume nted intervention 2 goal interventions scheduled/documen antione in this visit Breathing Problems - COPD Disciplines: Intermediate Ineffective breathing pattern related to respiratory disease 12/31/2024 Active 1 goal linked to scheduled/docume nted intervention 2 goal interventions scheduled/docbel talbot in this visit Apprehension/Ner vousness - COPD Disciplines: Intermediate Lack of knowledge regarding how to cope with feelings of anxiety and apprehension 12/31/2024 Active 1 goal linked to scheduled/docume nted intervention 3 goal interventions scheduled/gita talbot in this visit Goals Goal Associated Problem Outcome Goal Met? Visit Notes Prevent development of pressure injuries Description: director underwriter sales goal: The patient will maintain intact skin and avoid the development of pressure injuries within 1 month Short term goal: The patient/caregiver will understand and adhere to pressure prevention interventions within 2 visits Pressure Prevention Progressing No Understand and follow medication therapy Description: Patient/Caregiver will verbalize understanding of purpose, side effects, and medication regimen in 4 weeks as evidenced by taking all medications as prescribed and no medication errors. Medications Progressing No Measure vital signs during every home health visit during episode of care Description: Home pattern technician to measure vital signs during every home health visit during episode of care. Monitor patient's vital signs every home health visit Progressing No Care team will coordinate care Description: Care team will coordinate care centered on patient needs throughout the episode of care. Multidisciplinary Case Conference Progressing No Verbalize signs of infection Description: Patient/caregiver will demonstrate knowledge of infection prevention strategies by verbalizing signs and symptoms of infection. Infection Prevention Progressing No Demonstrate fall and safety precautions Description: Patient/caregiver maintains safe home environment as evidenced by remaining free from falls, injury due to falls, demonstrating safety precautions, and identifying strategies to reduce falls by 01/21/25 Fall Precautions/Safety Concerns Progressing No Demonstrate adequate knowledge of COPD Description: Patient/caregiver will demonstrate the clean technique of inhalant medication administration, proper care of equipment between doses, and verbalizes dosing schedule. Knowledge deficit Progressing No Demonstrate increased endurance Description: Patient will demonstrate increased endurance and ability to perform activities of daily living by maintenance of respiration and blood pressure while caring for self and performing routine tasks by the end of the episode of care. Problems with Activity - COPD Progressing No Maintain respiratory baselines Description: The patient will maintain respiratory baselines as evidenced by return to optimal level of breathing within disease parameters by the end of the episode of care. Agency standard parameters: MD to be notified if systolic BP at rest <80>160, diastolic BP at rest <50>100, pulse at rest <60>110. Breathing Problems - COPD Progressing No Demonstrate/Report reduction in anxiety Description: Patient will demonstrate/report reduction in anxiety during dyspneic episodes and the ability to verbalize the causes of the anxiety by the end of the episode of care. Apprehension/Nervousnes s - COPD Progressing No Interventions Intervention Associated Problem/Goal Status Variance [...] Problem:Pressure Prevention Goal:Prevent development of pressure injuries Scheduled Instruct on Medication Management Description: Assess patient/caregiver ability to demonstrate management of medications, steps to obtain new/refills of medications and identification of new or changed medications. Assess patient/caregiver ability to verbalize accurate do se/route/frequency/reason for medication, how to evaluate effectiveness of medication, ongoing lab work needed to ensure therapeutic dosing, drug/food interactions, side effects/adverse reactions, contraindications for medica tions and known drug allergies. Evaluate the effectiveness of current treatment regimen and notify the appropriate healthcare provider for the need for changes in the plan of care. Problem:Medications Goal:Understand and follow medication therapy Scheduled Monitor Vital Signs Description: Monitor blood pressure, [...] warmth. Problem:Infection Prevention Goal:Verbalize signs of infection Scheduled Educate Family on Infection Prevention Description: Instructed family on signs and symptoms of infection IE: fever, odor, change in color, increased amount of drainage, purulent drainage, warmth. Problem:Infection Prevention Goal:Verbalize signs of infection Scheduled High Fall Risk Precautions Description: Instruct patient/caregiver [...] Precautions/Safety Concerns Goal:Demonstrate fall and safety precautions Scheduled Instruct on COPD dietary considerations Description: Instruct patient/caregiver to eat small, frequent meals and take dietary supplements to maintain good nutrition. Instruct on adequate hydration to help thin lung secretions. Problem:Knowledge deficit Goal:Demonstrate adequate knowledge of COPD Completed Instruct on the mobilization of secretions Description: Instruct patient/caregiver in methods designed to mobilize secretions including vaporizer/humidifier, incentive spirometer, pressure device (CPAP, BIPAP), and mucous membrane care. Problem:Knowledge deficit Goal:Demonstrate adequate knowledge of COPD Scheduled Instruct on the COPD disease process Description: Instruct patient/caregiver in COPD disease process; and signs and symptoms of exacerbation. Actions to take if exacerbation occurs. Instruct patient/caregiver on how to identify when it is appropriate to contact home care agency/physician. Problem:Knowledge deficit Goal:Demonstrate adequate knowledge of COPD Scheduled Teach energy conservation Description: Teach patient/caregiver energy conservation techniques. Problem:Problems with Activity - COPD Goal:Demonstrate increased endurance Scheduled Instruct on sleeping positions for breathing comfort Description: Instruct patient/caregiver in positions for sleeping that will allow for ease in breathing, chest expansion and adequate rest to replenish energy stores. Problem:Problems with Activity - COPD Goal:Demonstrate increased endurance Scheduled Instruct on irritants Description: Instruct patient/caregiver in triggers that may irritate lungs: air pollution, smog, second-hand smoke, strong fumes, perfume, scented products, cold air and hot and humid air. Problem:Breathing Problems - COPD Goal:Maintain respiratory baselines Scheduled Instruct breathing techniques Description: Instruct patient/caregiver in deep-breathing and coughing exercises. Problem:Breathing Problems - COPD Goal:Maintain respiratory baselines Scheduled Instruct smoking cessation Description: Instruct patient in smoking cessation rationales, strategies, and available resources. Problem:Apprehension /Nervousness - COPD Goal:Demonstrate/Rep ort reduction in anxiety Completed Patient instructed on smoking cessation rationales, strategies, and available resources. Teach anxiety reduction techniques Description: Instruct patient/caregiver in methods to reduce anxiety including providing a calm environment with minimal disturbances, encouraging family members and friends to visit in small numbers to reduce stimulation. Problem:Apprehension /Nervousness - COPD Goal:Demonstrate/Rep ort reduction in anxiety Scheduled Instruct relaxation techniques Description: Instruct patient/caregiver in methods of relaxation. Problem:Apprehension /Nervousness - COPD Goal:Demonstrate/Rep ort reduction in anxiety Scheduled documented in this encounter Care Teams Weed Burner Relationship Specialty Start Date End Date Hayden Oreilly MD [address] [facility] [address] [place] [address] PCP - General Family Medicine 01/31/19 Pipo Richardson MD [address] [place] [address] Surgeon Vascular Surgery 02/27/24 Layne Maurice, BOARDER STEAM [address] [place] [address] Project Manager Process Development 11/22/24 documented as of this encounter
--- OUTSIDE RECORDS SUMMARY | 2025-01-10 05:33 | XMS_ITS | Referral Summary ---
Author Organization [facility] [address] [facility] [place] [address] Care Team Providers Care Application Design Engineer Name Role Phone Hayden Oreilly MD Primary Care Provi erinn Pipo Richardson MD Unavailable [phone] Layne MauriceW Unavailable [phone] Encounters Date Type Department Care Team Description 01/09/2025 12:30 PM CDT Home Care Visit [address] [address] [address] [place] [address] Yumiko Guevara LPN SN HOME VISIT 01/09/2025 10:00 AM CDT Home Care Visit [address] [place] [address] Surya Ibrahim, PT PT HOME VISIT 01/08/2025 Results Follow-Up [facility] Medical [facility] Pulmonology [address] [facility] [address] [place] [phone] Nasreen Watson MD 01/07/2025 12:30 PM CDT Home Care Visit [address] [place] [address] Heather Lowery, OT OT INITIAL EVALUATION 01/06/2025 Results Follow-Up [facility] Medical Group Family Medicine [address] [place] [phone] Maryellen De Souza NP 01/06/2025 Telephone [facility] 200 [facility] [address] [place] [phone] Hayden Oreilly MD Additional Services Or Orders 01/06/2025 Telephone [facility] [address] [phone] Hayden Oreilly MD Forms Request 01/06/2025 Home Care Visit [address] [place] [address] Surya Ibrahim, PT CASE COMMUNICATION 01/06/2025 Home Care Visit [address] [place] [address] Surya Ibrahim, PT CASE COMMUNICATION 01/06/2025 Telephone [facility] [address] [address] Hayden Oreilly MD Additional Services Or Orders 01/03/2025 10:00 AM CDT Home Care Visit [address] [place] [address] Surya Ibrahim, PT PT INITIAL EVALUATION 01/02/2025 3:42 PM CDT - 01/02/2025 11:59 PM CDT Hospital Encounter [facility] Diagnostic Imaging [address] [place] [address] Chronic obstructive pulmonary disease, unspecified COPD type (HCC) Discharge Disposition: Discharge to home or self care 01/02/2025 2:15 PM CDT Office Visit [facility] Pulmonology [address] [phone] Nasreen Watson MD Shortness of breath (Primary Dx); Chronic obstructive pulmonary disease, unspecified COPD type (HCC) 01/02/2025 2:54 PM CDT - 01/02/2025 11:59 PM CDT Hospital Encounter [facility] Cardiac Testing [address] [place] [address] Bilateral leg edema; SOB (shortness of breath) on exertion Discharge Disposition: Discharge to home or self care 12/31/2024 Plan of Care Documentation [address] [place] [address] 12/31/2024 2:00 PM CDT Home Care Visit [address] [place] [address] Dali Juarez, MARK SN OASIS START OF CARE 12/26/2024 Telephone [facility] Home Care Services [address] [place] [address] Dora Wren RN 12/26/2024 Travel 12/26/2024 Telephone [facility] Medicine [address] [phone] Hayden Oreilly MD Medical Question/Miscellaneou s 12/26/2024 4:00 PM CDT Office Visit [facility] Family Medicine 200 [facility] [address] [place] [address] Maryellen De Souza NP Chronic obstructive pulmonary disease, unspecified COPD type (HCC) (Primary Dx); Bilateral leg edema; SOB (shortness of breath) on exertion; Constipation, unspecified constipation type 12/24/2024 Telephone [facility] Family Medicine 200 [facility] [address] [place] [address] Hayden Oreilly MD Med Refill 12/24/2024 Orders Only [facility] Accountable Care Organization [address] [place] [address] Amrik Syed MD 12/24/2024 Telephone [facility] Family Medicine 200 [facility] [address] [place] [address] Hayden Oreilly MD Successful Phone Call 12/24/2024 Documentation [facility] Vascular and Vein Surgery [address] [facility] [address] [place] [address] Iwona Rajan MA 12/23/2024 Telephone [facility] Family Medicine [address] [facility] [address] [place] [address] Hayden Oreilly MD LAVELL Questions 12/19/[address] [facility] Surgery [address] [place] [address] Orville Menard MD Right kidney mass (Primary Dx); Kidney lesion 12/19/[address] [facility] Surgery [address] [place] [phone] Jaqui Moreno RMA 12/07/2024 Home Care Visit [address] [place] [address] Surya Ibrahim, PT PT OASIS TRANSFER W/DC 12/06/2024 Results Follow-Up [facility] Family Medicine [address] [facility] [address] [place] [address] Maryellen De Souza NP 12/06/2024 Telephone [facility] [address] [facility] [address] [place] [address] Maryellen De Souza NP patient assistance 12/05/2024 3:05 PM CDT Ancillary Procedure [facility] Diagnostic Imaging 200 [facility], [address] [address] 12/05/2024 3:00 PM CDT Lab [facility] Lab [address] [facility], [facility] [address] [place] [address] Bilateral leg edema 12/05/2024 Orders Only [facility] Family Medicine [address] [facility] [address] [place] [address] Maryellen De Souza NP Chronic obstructive pulmonary disease with acute exacerbation (HCC) 12/05/2024 Home Care Visit [address] [place] [address] Surya Ibrahim, PT CASE COMMUNICATION 12/05/2024 9:00 AM CDT Home Care Visit [address] [place] [address] Dali Juarez, MARK SN INITIAL EVALUATION 12/05/2024 2:15 PM CDT Office Visit [facility] Family Medicine 200 [facility] [address] [place] [address] Maryellen De Souza NP Chronic obstructive pulmonary disease with acute exacerbation (HCC) (Primary Dx); Generalized weakness; Bilateral leg edema; Tremor of both hands; Essential hypertension 12/04/2024 11:30 AM CDT Home Care Visit [address] [place] [address] Surya Ibrahim, PT PT HOME VISIT 12/04/2024 Home Care Visit [address] [place] [address] Surya Ibrahim, PT TELEPHONE ENCOUNTER 12/04/2024 9:30 AM CDT Office Visit [facility] Vascular and Vein Surgery [address] [place] [address] [address] [place] [address] Pipo Richardson MD Atherosclerosis of gambell artery of both lower extremities with intermittent claudication (Primary Dx); Bilateral carotid artery stenosis 12/03/2024 Home Care Visit [address] [place] [address] Heather Lowery, OT CASE COMMUNICATION 12/03/2024 Home Care Visit [address] [place] [address] Surya Ibrahim, PT CARE CONFERENCE 12/03/2024 10:30 AM CDT Home Care Visit [address] [place] [address] Heather Lowery, OT OT INITIAL EVALUATION 12/02/2024 Home Care Visit [address] [place] [address] Surya Ibrahim, PT TELEPHONE ENCOUNTER 12/02/2024 Telephone [facility] 200 [facility] [address] [place] [phone] Hayden Oreilly MD Additional Services Or Orders 11/29/2024 Home Care Visit [address] [place] [address] Alison Hernandez, RN NURSE MED [facility] 11/29/2024 8:36 AM CDT - 11/29/2024 11:59 PM CDT Hospital Encounter [facility] Cardiac Testing [address] [place] [address] Subclavian artery stenosis, left Discharge Disposition: Discharge to home or self care 11/29/2024 8:36 AM CDT - 11/29/2024 11:59 PM CDT Hospital Encounter [facility] Cardiac Testing [address] [place] [address] Stenosis of right carotid artery; Occlusion of left carotid artery Discharge Disposition: Discharge to home or self care 11/28/2024 Plan of Care Documentation [address] [place] [address] 11/28/2024 Home Care Visit [address] [place] [address] Surya Ibrahim, PT CASE COMMUNICATION 11/28/2024 10:00 AM CDT Home Care Visit [address] [place] [address] Surya Ibrahim, PT PT OASIS START OF CARE 11/26/2024 Telephone [facility] Home Care Services [address] [place] [address] Dora Wren RN 11/26/2024 Travel 11/22/2024 Telephone [facility] 200 [facility] [address] [place] [phone] Hayden Oreilly MD Successful Phone Call 11/22/2024 ACO Outreach [facility] Accountable Care Organization [address] [place] [address] Dora Hua RN 11/22/2024 11:00 AM CDT Office Visit [facility] Family Medicine [address] [facility] [address] [place] [address] Maryellen De Souza NP Chronic obstructive pulmonary disease with acute exacerbation (HCC) (Primary Dx); Essential hypertension; Generalized weakness; Tremor of both hands; Bilateral leg edema; Anxiety 11/17/2024 Orders Only [facility] Health Information Management [address] [place] [address] Scanning, Provider 11/15/2024 Orders Only [facility] Vascular and Vein Surgery [address] [place] [address] Pipo Richardson MD Aftercare following surgery of the circulatory system (Primary Dx); Stenosis of right carotid artery; Occlusion of left carotid artery; Subclavian artery stenosis, left 11/14/2024 3:00 PM CDT Office Visit [facility] Vascular and Vein Surgery [address] [place] [phone] Tabitha Ortez NP Atherosclerosis of gambell artery of both lower extremities with intermittent claudication (Primary Dx); Carotid artery calcification, unspecified laterality; Bilateral carotid artery stenosis; Numbness and tingling of left upper extremity 11/14/2024 1:43 PM CDT - 11/14/2024 11:59 PM CDT Hospital Encounter [facility] [address] [place] [address] Aftercare following surgery of the circulatory system Discharge Disposition: Discharge to home or self care 11/14/2024 1:44 PM CDT - 11/14/2024 11:59 PM CDT Hospital Encounter [facility] [address] [place] [address] Aftercare following surgery of the circulatory system Discharge Disposition: Discharge to home or self care 11/08/2024 10:45 AM VEHICLE CHECK IN CLERK Office Visit [facility] Medicine [address] [facility] [address] [place] [address] Maryellen De Souza NP Chronic obstructive pulmonary disease with acute exacerbation (HCC) (Primary Dx); Pneumonia due to infectious organism, unspecified laterality, unspecified part of lung 10/26/2024 Nurse Triage [facility] [address] [facility] [address] [place] [phone] Hayden Oreilly MD 10/25/2024 Orders Only [address] [address] Cony Caba NP 10/25/2024 Nurse Triage [facility] 200 [facility] [address] [place] [phone] Hayden Oreilly MD 10/25/2024 Telephone [facility] [address] [facility] [address] [place] [phone] Hayden Oreilly MD LAVELL Questions 10/18/2024 Telephone [facility] [address] [facility] [address] [place] [phone] Hayden Oerilly MD Medication Request 10/18/2024 Telephone [facility] [address] [facility] [address] [place] [phone] Hayden Oreilly MD Medical Question/Miscellaneou s 10/16/2024 3:15 PM VEHICLE CHECK IN CLERK Office Visit [facility] at [address] [place] [phone] Tamar Carpio PA Shortness of breath (Primary Dx); Cough, unspecified type 10/16/2024 Nurse Triage [facility] 200 [facility] [address] [place] [phone] Hayden Oreilly MD 2024 Telephone [facility] [address] [address] Hayden Oreilly MD Forms Request 10/14/2024 Telephone [facility] Medical Group Family Medicine [address] [address] Hayden Oreilly MD Medical Question/Miscellaneou s from Last 3 Months Allergies No known active allergies Medications nebulizers [facility] 1 Units every 6 (six) hours 1 each 022 Active cholecalciferol (VITAMIN D-3) 2000 unit tabletIndications: Prevention of Vitamin D Deficiency Take 125 mcg by mouth daily Active aspirin 81 mg chewable tabletIndications: prevention of thrombosis Take 1 tablet (81 mg total) by mouth daily Active atorvastatin (LIPITOR) 40 mg tabletIndications: hyperlipidemia Take 1 tablet (40 mg total) by mouth daily Active clopidogreL (PLAVIX) 75 mg tabletIndications: Cerebral Thromboembolism Prevention Take 1 tablet (75 mg total) by mouth daily Active alendronate (FOSAMAX) 70 mg tabletIndications: Post-Menopausal Osteoporosis TAKE 1 TABLET BY MOUTH ONCE A WEEK WITH A FULL GLASS OF WATER ONLY. DO NOT LIE DOWN/EAT FOR 30 MINS 12 tablet 3 024 Active meclizine (ANTIVERT) 25 mg tabletIndications: Vertigo 025 Active benzonatate (TESSALON) 100 mg capsuleIndications :Cough Take 1 capsule (100 mg total) by mouth 3 (three) times a day as needed for cough 42 capsule 025 Active albuterol HFA (PROVENTIL HFA,VENTOLIN HFA,PROAIR HFA) 90 mcg/actuation inhalerIndications :Chronic Obstructive Pulmonary Disease Inhale 2 puffs every 4 (four) hours as needed for wheezing 1 each 5 025 Active levothyroxine (SYNTHROID) 125 mcg tabletIndications: hypothyroidism TAKE 1 TABLET BY MOUTH EVERY DAY IN THE MORNING ON AN EMPTY STOMACH 90 tablet 1 025 Active albuterol 2.5 mg /3 mL (0.083 %) nebulizer solutionIndication s:Chronic Obstructive Pulmonary Disease Take 3 mL by nebulization every 6 (six) hours as needed for wheezing Active polyethylene glycol (MIRALAX) 17 gram/dose bulk powderIndications: constipation Take 17 g by mouth daily as needed (constipation) Active ALPRAZolam (XANAX) 0.25 mg tabletIndications: anxiety Take 1 tablet (0.25 mg total) by mouth 3 (three) times a day as needed for anxiety 30 tablet 2 Active ipratropium-albute roL (DUO-NEB) 0.5-2.5 mg/3 mL nebulizer solutionIndication s:Chronic Obstructive Pulmonary Disease with Bronchospasms Take 3 mL by nebulization 4 (four) times a day as needed for wheezing or shortness of breath 360 mL 3 Active fluticasone-umecli din-vilanter (Trelegy Ellipta) 100-62.5-25 mcg inhalerIndications :Bronchospasm Prevention with COPD Inhale 1 puff daily Active docusate sodium (DOK) 100 mg tabletIndications: constipation Take 1 tablet (100 mg total) by mouth once daily Active acetaminophen (TYLENOL) 325 mg tabletIndications: Pain Take 2 tablets (650 mg total) by mouth every 4 (four) hours as needed for pain Active furosemide (LASIX) 40 mg tabletIndications: Peripheral Edema due to Chronic Heart Failure Take 1 tablet (40 mg total) by mouth 2 (two) times a day Active metOLazone (ZAROXOLYN) 2.5 mg tabletIndications: Peripheral Edema due to Chronic Heart Failure Take 2 tablets (5 mg total) by mouth every other day 45 tablet 3 Active Additional Information Patient not taking.Reported on 01/02/[address] (PROTONIX) 40 mg EC tabletIndications: Stress Ulcer Prophylaxis TAKE 1 TABLET BY MOUTH EVERY DAY 90 tablet [address] (PROTONIX) 40 mg EC tabletIndications: Stress Ulcer Prophylaxis TAKE 1 TABLET BY MOUTH EVERY DAY 100 tablet 1 024 2024 Discontinued furosemide (LASIX) 20 mg tabletIndications: Edema Take 1 tablet (20 mg total) by mouth every other day 45 tablet 3 025 2024 Discontinued furosemide (LASIX) 20 mg tabletIndications: Edema Take 1 tablet (20 mg total) by mouth 2 (two) times a day 2024 Discontinued(T herapy completed) lactulose solution 10 gram/15mL Take 15 mL (10 g total) by mouth every 8 (eight) hours as needed 2024 Discontinued predniSONE (DELTASONE) 20 mg tablet Take 2 tablets (40 mg) by mouth daily for 5 days 10 tablet 025 2024 Active Problems Problem Noted Date Diagnosed Date Shortness of breath 10/16/2024 Assessment & Plan (10/16/2024 3:17 PM VEHICLE CHECK IN CLERK): O2 saturation between 92-94% at rest Recommended ER evaluation, patient declined Will treat for possible COPD exacerbation again with prednisone Albuterol as needed Already recently treated with prednisone, z pack Please see your PCP or surgical rn in the future for recurrent COPD exacerbations Cough 10/16/2024 Assessment & Plan (10/16/2024 3:16 PM VEHICLE CHECK IN CLERK): Mucinex as expectorant Albuterol nebulizer Prednisone Likely d/t COPD exacerbation Bronchitis 09/23/2024 Assessment & Plan (09/23/2024 11:51 AM VEHICLE CHECK IN CLERK): Covid and flu test negative Wheezing throughout [...] 09/23/2024 Assessment & Plan (09/23/2024 12:04 PM VEHICLE CHECK IN CLERK): Rapid strep positive Initiate Zithromax as this antibiotic is effective as well in patient's with COPD exacerbation and safe in patient's with CKD. Warm salt water gargles. Tylenol for sore throat, body aches, fever. Cerebrovascular accident (CVA) 05/01/2024 History of stroke 04/18/2024 Carotid artery occlusion 04/14/2024 Carotid occlusion, left 04/14/2024 Acute ischemic stroke 04/13/2024 Carotid stenosis 04/13/2024 Assessment & Plan (12/20/2024 3:01 PM CDT): Less than 50% stenosis bilateral internal carotid arteries. Patient has known left subclavian artery stenosis with bidirectional flow in the left vertebral. No plans for further workup at this time. Continue risk factor modification. Assessment & Plan (11/18/2024 10:58 AM CDT): Impression: History of carotid stenosis and was being monitored by [facility] however are no longer accepting her insurance and she is requesting for our office to resume call. After further chart review, left internal carotid artery appears occluded. Plan: We will have patient follow-up in [...] brachial pulses with equal and good hand telephone clerks supervisor to bilateral upper extremities. Plan: Symptoms are [...] (chronic obstructive pulmonary disease) 05/2024 Atherosclerosis of gambell ar mian of both lower extremities with intermittent claudication 01/31/2024 Assessment & Plan (12/20/2024 3:00 PM CDT): Patient's lower extremity symptoms are stable she has not developed rest pain no open wounds. She is still recovering from recent hospitalization. Continue ongoing medical therapy follow-up in 6 weeks for re-evaluation. Assessment & Plan (11/15/2024 11:40 AM CDT): [...] Preser vative Free, Intramuscular 11/25/2013 Influenza, Unspecified 12/05/2024(Deferr ed: Patient Refused),12/05/2024(Deferred: Patient Refused),11/05/2023(Deferred: Patient Refused),11/05/2023(Deferred: Patient Refused),11/05/2023(Deferred: Patient [...] materials from doctor or pharmacy Always 12/31/2024 [facility] Utilities Answer Date Recorded In the past 12 months has e [employer], gas, oil, or water [employer] threatened to shut off services in your [...] often do you attend chur ch or christianity services? Never 11/28/2024 Do you belong to any clubs o r organizations such as buddhism groups, unions, fraternal or athletic groups, or [...] money to buy more. Never true 11/29/19 Within the past 12 months, t he [...] any time in the past 12 m [facility], were you homeless or living in a half-way (including now)? No 11/28/2024 Personal Safety Answer Date Recorded Have you ever been in or are you currently in a harmful physical or emotional relationship or is someone making you feel afraid or unsafe? 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 VEHICLE CHECK IN CLERK Gender Identity Not on file Sexual Orientation Not on file Last Filed Vital Signs Vital Sign Reading Time Taken Comments Blood Pressure 125/70 01/09/2025 11:32 AM CDT Pulse 87 01/09/2025 11:32 AM CDT Temperature 36.3 C (97.4 F) 01/09/2025 11:32 AM CDT Respiratory Rate 20 01/09/2025 11:32 AM CDT Oxygen Saturation 97% 01/09/2025 11:32 AM CDT Inhaled Oxygen Concentration - - Weight 74.4 kg (164 lb) 01/02/2025 2:08 PM CDT Height 157.2 cm (5' 1.89 ) 01/02/2025 2:08 PM CD T Body Mass Index 30.1 01/02/2025 2:08 PM CDT Plan of Treatment Not on file Goals Goal Patient Goal Type Associated Problems Recent Progress Patient-Stated? Author ACO SW Goal - Patient will be able to safely move about their home ACO Care Management On track(2024 9:53 AM CDT) Layne Gordon, RADIO FREQUENCY DESIGN ENGINEER Note: Problem: Barriers to Home Accessibility Interventions: - Assess home accessibility barriers. - Identify equipment or modifications needed to address barrier(s). - Research available resources to improve home accessibility. - Refer to appropriate resources or alternate housing options. Medical Devices Implanted Type Area Veterinary Assistant Technician Device Identifier Shelf Expiration Date Model / Serial / Lot [employer] Peripheral Vascular Lifestream 8mm 37mm 80cm Balloon Expandable Low Profile Cover [id number] - [id number] Implanted:Qty: 1 on 02/27/2024 by Pipo Richardson MD at [facility] [employer]ipheral [employer] 10/04/2024 [id number] / / [id number] [employer] Peripheral Vascular Lifestream 8mm 37mm 80cm Balloon Expandable Low Profile Cover [id number] - [id number] Implanted:Qty: 1 on 02/27/2024 by Pipo Richardson MD at [facility] [employer]ipheral [employer] 09/03/2025 [id number] / / [id number] [employer] Vascular System Closure Repair Femoral Artery Suture Mediated Perclose Prostyle 86469-13 - [id number] Implanted:Qty: 1 on 02/27/2024 by Pipo Richardson MD at [facility] [employer] 11/01/2025 [id number] / / [id number] [employer] Vascular System Closure Repair Femoral Artery Suture Mediated Perclose Prostyle 37023-29 - [id number] Implanted:Qty: 1 on 02/27/2024 by Pipo Richardson MD at [facility] Vascular 11/01/2025 [id number] / / [id number] Procedures Procedure Name Priority Date/Time Associated Diagnosis Comments XR CHEST PA LATERAL 2 VIEWS [id number]|2025-01-14 15:53:10|2025-01-14 15:53:10|PCRCNOTE||||"Window of time for administration has passed. See next scheduled administration."
--- OUTSIDE RECORDS SUMMARY | 2025-01-10 05:33 | XMS_ITS | CONTINUITY OF CARE DOCUMENT ---
Author Name henrietta shrestha Address Unknown Organization [facility] Address [address] [facility] [address] [place] [address] Phone [phone] Care Team Providers Care Lead Cytogenetic Technologist Name Role Phone Farshad JOE, Nannette Unavailable Nannette Yen MD Unavailable [phone] INSURANCE PROVIDERS Payer name Policy type / Coverage type [place] [employer] party ID [employer] Other [id number]
--- OUTSIDE RECORDS SUMMARY | 2025-01-10 05:33 | XMS_ITS | Patient Health Record ---
Author Organization [facility] Address [address] [place], [place] [id number] Care Team Providers Care Floral Clerk Name Role Phone NATALIIA THAKUR Unavailable [phone] Hayden Oreilly Unavailable Unavaila ble Allergies No Known Allergies Reason For Referral No Information Plan Of Treatment No Information Insurance Providers Payer Name Payer Address Payer Phone Subscriber Number Group Number Insured Name Patient Relationship to Insured Coverage Start Date Coverage End Date [employer]. [address] [place] [id number] IGOR BERNARD Self - patient is the insured Medical (General) History Medical History History ICD Code Leg/Feet cramps Arthritis Thyroid Disease
--- OUTSIDE RECORDS SUMMARY | 2025-01-10 05:33 | XMS_ITS | Encounter Summary ---
Author Organization [facility] Healthcare Address [address] [place] [address] Care Team Providers Care Oven Heater Name Role Phone Hayden Oreilly MD Primary Care Provi erinn Pipo Richardson MD Unavailable [phone] Layne MauriceW Unavailable Encounter Details Date Type Department Care Team (Late st Contact Info) Description 11/17/2024 Orders Only [facility] [address] [place] [address] Scanning, Provider Social History Tobacco Use Types Packs/Day Years Used Date Smoking Tobacco: Former Cigarettes Q uit: 09/04/1992 Smokeless Tobacco: Never Comments:Quit 20 years ago Alcohol Use Standard Drinks/Week Comments Not Currently 0 (1 standard drink = 0.6 oz pur e alcohol) [facility] Utilities Answer Date Recorded In the past 12 months has [employer], gas, oil, or water [employer] threatened to shut off services in your [...] do you attend [facility] or baptism services? Never 05/09/2024 Do you belong to [...] were you homeless or living in a fci (including now)? No 05/09/2024 Personal Safety Answer Date Recorded Have you ever been in or are you currently in a harmful physical or emotional relationship or is someone making you feel afraid or unsafe? 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 ENVIRONMENTAL SERVICES DIRECTOR Gender Identity Not on file Sexual Orientation Not on file documented as of this encounter Plan of Treatment Not on file documented as of this encounter Procedures Procedure Name Priority Date/Time Associated Diagnosis Comments SCAN - RADIOLOGY/IMAGING 11/17/2024 CARDIOLOGY DOCUMENT SCAN 11/17/2024 documented in this encounter Results * SCAN - RADIOLOGY/IMAGING (11/17/2024) Anatomical Region Laterality Modality Other us Provider Scanning Edited Result - Final * Cardiology Document Scan (11/17/2024) Anatomical Region Laterality Modality Other us Provider Scanning CV CARDIAC SERVICES PROCEDURES Final Result documented in this encounter Visit Diagnoses Not on filedocumented in this encounter Care Teams Oven Heater Relationship Specialty Start Date End Date Hayden Oreilly MD [address] [place] [address] PCP - General Family Medicine 01/31/19 Pipo Richardson MD [address] [place] [address] Surgeon Vascular Surgery 02/27/24 Layne Maurice, NUTRITION SERVICES ASSISTANT [address] [place] [address] Booth Cashier 11/22/24 documented as of this encounter
--- OUTSIDE RECORDS SUMMARY | 2025-01-10 05:33 | XMS_ITS | Encounter Summary ---
Author Organization [facility] Healthcare Address [address] [place] [address] Care Team Providers Care Library Aide Name Role Phone Hayden Oreilly MD Primary Care Provi erinn Pipo Richardson MD Unavailable [phone] Layne MauriceW Unavailable [phone] Reason for Visit * Reason Onset Date Comments Additional Services Or Orders 01/06/2025 Encounter Details Date Type Department Care Team (Late st Contact Info) Description 01/06/2025 Telephone [facility] Medical Group Family Medicine [address] [place] [address] Hayden Oreilly MD [address] [place] [address] Additional Services Or Orders Social History Tobacco Use Types Packs/Day Years [...] materials from doctor or pharmacy Always 12/31/2024 [facility] Utilities Answer Date Recorded In [...] often do you attend chur ch or congregational services? Never 11/28/2024 Do you belong to any clubs o r organizations such as islam groups, unions, fraternal or athletic groups, or [...] any time in the past 12 m [facility], were you homeless or living in a halfway (including now)? No 11/28/2024 Personal Safety Answer Date Recorded Have you ever been in or are you currently in a harmful physical or emotional relationship or is someone making you feel afraid or unsafe? 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 * Telephone Encounter - Angelique Mahoney - 01/06/2025 8:40 AM CDT Additional Services or Orders Type of Service Requested:Physical Therapy Duration/Number of Visits: 1x weekly for 1 week, 2x weekly for 2 weeks, 1x weekly for 3 weeks Is a verbal order acceptable? yes Reason for Request (e.g. condition/symptom, date of COVID exposure if applicable): building strength, endurance, fall prevention, was in rehab, COPD exacerbation Details Regarding Additional Services (e.g. type of home health, type of equipment, type of test, etc.): PT Where will services be performed? (if outside of the practice, facility name, address, phone/fax offacility): in home Additional Comments: Surya PT with [facility] home care called for verbal auth for continuation of care after evaluation. Does message need to be routed? Yes-Action Needed documented in this encounter Plan of Treatment Not on file documented as of this encounter Goals Goal Patient Goal Type Associated Problems Recent Progress Patient-Stated? Author ACO SW Goal - Patient will be able to safely move about their home ACO Care Management On track(2024 9:53 AM CDT) No Layne Maurice LCSW Note: Problem: Barriers to Home Accessibility Interventions: - Assess home accessibility barriers. - Identify equipment or modifications needed to address barrier(s). - Research available resources to improve home accessibility. - Refer to appropriate resources or alternate housing options. documented as of this encounter Visit Diagnoses Not on filedocumented in this encounter Care Teams Library Aide Relationship Specialty Start Date End Date Hayden Oreilly MD [address] [facility] [address] [place] [address] PCP - General Family Medicine 01/31/19 Pipo Richardson MD [address] [place] [address] Surgeon Vascular Surgery 02/27/24 Layne Maurice LCSW [address] [place] [address] [address] [place] [address] Auto Body Worker 11/22/24 documented as of this encounter
--- OUTSIDE RECORDS SUMMARY | 2025-01-10 05:33 | XMS_ITS | Encounter Summary ---
Author Organization [facility] Healthcare Address [address] [place] [address] Care Team Providers Care Regional Hr Manager Name Role Phone Hayden Oreilly MD Primary Care Provi erinn Pipo Richardson MD Unavailable [phone] Layne MauriceW Unavailable [phone] Reason for Visit * Reason Onset Date Comments Additional Services Or Orders 01/06/2025 Encounter Details Date Type Department Care Team (Late st Contact Info) Description 01/06/2025 Telephone [facility] Medical Group Family Medicine [address] [place] [address] Hayden Oreilly MD [address] [place] [address] Additional Services Or Orders Social [...] doctor or pharmacy Always 12/31/2024 [facility] Utilities Answer Date Recorded In the past [...] often do you attend chur ch or restorationist services? Never 11/28/2024 Do you belong to any clubs o r organizations such as mandaen groups, unions, fraternal or athletic groups, or [...] were you homeless or living in a alf (including now)? No 11/28/2024 Personal Safety Answer Date Recorded Have you ever been in or are you currently in a harmful physical or emotional relationship or is someone making you feel afraid or unsafe? 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 Pt will also be seeing [facility]HSW. * Telephone Encounter - Shoshana Harley MA - 01/07/2025 8:55 AM CDT [facility] for Dali, please inquire about lab question? Is she needing labs/ requesting labs or asking about completing the BMP in chart? * Telephone Encounter - Hayden Oreilly MD - 01/06/2025 1:58 PM CDT That is fine. If we have any labs that need to be drawn then they can do that * Telephone Encounter - Anyi Villalpando - 01/06/2025 11:09 AM CDT Additional Services or Orders Type of Service Requested:Home Health - Nursing Duration/Number of Visits: Once a week for four weeks Is a verbal order acceptable? Yes Reason for Request (e.g. condition/symptom, date of COVID exposure if applicable): Education for COPD Details Regarding Additional Services (e.g. type of home health, type of equipment, type of test, etc.): Nursing Where will services be performed? (if outside of the practice, facility name, address, phone/fax offacility): Patient's home Additional Comments: Is it for her to obtain labs before her appointment? Does message need to be routed? Yes-Action Needed documented in this encounter Plan of Treatment Not on file documented as of this encounter Goals Goal Patient Goal Type Associated Problems Recent Progress Patient-Stated? Author ACO SW Goal - Patient will be able to safely move about their home ACO Care Management On track(2024 9:53 AM CDT) No Layne Maurice, VICE PRESIDENT PAYMENT Note: Problem: Barriers to Home Accessibility Interventions: - Assess home accessibility barriers. - Identify equipment or modifications needed to address barrier(s). - Research available resources to improve home accessibility. - Refer to appropriate resources or alternate housing options. documented as of this encounter Visit Diagnoses Not on filedocumented in this encounter Care Teams Regional Hr Manager Relationship Specialty Start Date End Date Hadyen Oreilly MD [address] [facility] [address] [place] [address] PCP - General Family Medicine 01/31/19 Pipo Richardson MD [address] [place] [address] Surgeon Vascular Surgery 02/27/24 Layne Maurice, VICE PRESIDENT PAYMENT [address] [place] [address] Choir Teacher 11/22/24 documented as of this encounter
--- OUTSIDE RECORDS SUMMARY | 2025-01-10 05:33 | XMS_ITS | Clinical Summary ---
Author Organization [facility] [address] [place] [address] Care Team Providers Care Salesperson [employer] Name Role Phone Hayden Oreilly MD Primary Care Provi erinn Pipo Richardson MD Unavailable [phone] Layne MauriceW Unavailable [phone] Allergies No known active allergies Medications nebulizers [...] as needed for anxiety 30 tablet 2 025 Active ipratropium-albute roL (DUO-NEB) 0.5-2.5 mg/3 mL nebulizer solutionIndication s:Chronic Obstructive Pulmonary Disease with Bronchospasms Take 3 mL by nebulization 4 (four) times a day as needed for wheezing or shortness of breath 360 mL 3 025 Active fluticasone-umecli din-vilanter (Trelegy Ellipta) 100-62.5-25 mcg [...] mouth every other day 45 tablet 3 04/24/2 025 Active Additional Information Patient not taking.Reported [...] by mouth 2 (two) times a day 025 2024 Discontinued(T herapy completed) lactulose solution 10 gram/15mL Take 15 mL (10 g total) by mouth every 8 (eight) hours as needed 2024 Discontinued predniSONE (DELTASONE) 20 mg tablet Take 2 tablets (40 mg) by mouth daily for 5 days 10 tablet 025 2024 Active Problems Problem Noted Date Diagnosed Date Shortness of breath 10/16/2024 Assessment & Plan (10/16/2024 3:17 PM YOGA COORDINATOR): O2 saturation between 92-94% at rest Recommended ER evaluation, patient declined Will treat for possible COPD exacerbation again with prednisone Albuterol as needed Already recently treated with prednisone, z pack Please see your PCP or correspondence dictator in the future for recurrent COPD exacerbations Cough 10/16/2024 Assessment & Plan (10/16/2024 3:16 PM YOGA COORDINATOR): Mucinex as expectorant Albuterol nebulizer Prednisone Likely d/t COPD exacerbation Bronchitis 09/23/2024 Assessment & Plan (09/23/2024 11:51 AM YOGA COORDINATOR): Covid and flu test negative Wheezing throughout [...] 09/23/2024 Assessment & Plan (09/23/2024 12:04 PM YOGA COORDINATOR): Rapid strep positive Initiate Zithromax as this [...] carotid stenosis and was being monitored by [facility] however are no longer accepting her [...] brachial pulses with equal and good hand hide trimmer to bilateral upper extremities. Plan: Symptoms are [...] (chronic obstructive pulmonary disease) 05/2024 Atherosclerosis of cahto ar mian of both lower extremities with [...] 01/09/2025 12:30 PM CDT Home Care Visit [address] [address] [address] [place] [address] Yumiko Guevara LPN SN HOME VISIT 01/09/2025 10:00 AM CDT Home Care Visit [address] [address] [place] [address] Surya Ibrahim, PT PT HOME VISIT 01/08/2025 Results Follow-Up [facility] Pulmonology [address] [place] [address] [place] [phone] Nasreen Watson MD 01/07/2025 12:30 PM CDT Home Care Visit [address] [address] [address] [place] [address] Heather Lowery, OT OT INITIAL EVALUATION 01/06/2025 Results Follow-Up [facility] [address] [facility] [address] [place] [phone] Maryellen De Souza NP 01/06/2025 Telephone [facility] Family [facility] [address] [facility] [address] [place] [phone] Hayden Oreilly MD Additional Services Or Orders 01/06/2025 Telephone [facility] [address] [facility] [address] [place] [phone] Hayden Oreilly MD Forms Request 01/06/2025 Home Care Visit [address] [address] [address] [place] [address] Surya Ibrahim, PT CASE COMMUNICATION 01/06/2025 Home Care Visit [address] [address] [address] [place] [address] Surya Ibrahim, PT CASE COMMUNICATION 01/06/2025 Telephone [facility] Family Medicine [address] [facility] [address] [place] [address] Hayden Oreilly MD Additional Services Or Orders 01/03/2025 10:00 AM CDT Home Care Visit [address] [address] [address] [place] [address] Surya Ibrahim, PT PT INITIAL EVALUATION 01/02/2025 3:42 PM CDT - 01/02/2025 11:59 PM CDT Hospital Encounter [facility] Diagnostic Imaging [address] [place] [address] Chronic obstructive pulmonary disease, unspecified COPD type (HCC) Discharge Disposition: Discharge to home or self care 01/02/2025 2:54 PM CDT - 01/02/2025 11:59 PM CDT Hospital Encounter [facility] Cardiac Testing [address] [place] [address] Bilateral leg edema; SOB (shortness of breath) on exertion Discharge Disposition: Discharge to home or self care 01/02/2025 2:15 PM CDT Office Visit [facility] Medical [facility] Pulmonology [address] [address] Nasreen Watson MD Shortness of breath (Primary Dx); Chronic obstructive pulmonary disease, unspecified COPD type (HCC) 12/31/2024 2:00 PM CDT Home Care Visit [address] [place] [address] Dali Juarez RN SN OASIS START OF CARE 12/31/2024 Plan of Care Documentation [address] [place] [address] 12/26/2024 4:00 PM CDT Office Visit [facility] Medical [facility] Family Medicine [address] [facility] [address] [place] [address] Maryellen De Souza NP Chronic obstructive pulmonary disease, unspecified COPD type (HCC) (Primary Dx); Bilateral leg edema; SOB (shortness of breath) on exertion; Constipation, unspecified constipation type 12/26/2024 Telephone [facility] Home Care Services [address] [place] [address] Dora Wren RN 12/26/2024 Travel 12/26/2024 Telephone [facility] Medicine [address] [facility] [address] [place] [phone] Hayden Oreilly MD Medical Question/Miscellaneou s 12/24/2024 Telephone [facility] Medicine [address] [facility] [address] [place] [address] Hayden Oreilly MD Med Refill 12/24/2024 Orders Only [facility] Accountable Care Organization [address] [place] [address] ProviderAmrik MD 12/24/2024 Telephone [facility] Medicine [address] [facility] [address] [place] [address] Hayden Oreilly MD Successful Phone Call 12/24/2024 Documentation [facility] Vascular and Vein Surgery [address] [facility] [address] [place] [address] Iwona Rajan MA 12/23/2024 Telephone [facility] [address] [facility] [address] [place] [address] Hayden Oreilly MD LAVELL Questions 12/19/2024 Orders Only [facility] Surgery [address] [facility] [address] [place] [address] Orville Menard MD Right kidney mass (Primary Dx); Kidney lesion 12/19/2024 Telephone [facility] Surgery [address] [facility] [address] [place] [address] Jaqui Moreno RMA 12/07/2024 Home Care Visit [facility] [address] [place] [address] Surya Ibrahim, PT PT OASIS TRANSFER W/DC 12/06/2024 Results Follow-Up [facility] Family [facility] [address] [facility] [address] [place] [address] Maryellen De Souza NP 12/06/2024 Telephone [facility] [address] [facility] [address] [place] [address] Maryellen De Souza NP patient assistance 12/05/2024 3:05 PM CDT Ancillary Procedure [facility] Diagnostic Imaging [address] [facility], [facility] [address] [place] [address] 12/05/2024 3:00 PM CDT Lab [facility] Lab [address] [facility] [address] [place] [address] Bilateral leg edema 12/05/2024 2:15 PM CDT Office Visit [facility] Family [facility] [address] [facility] [address] [place] [address] Maryellen De Souza NP Chronic obstructive pulmonary disease with acute exacerbation (HCC) (Primary Dx); Generalized weakness; Bilateral leg edema; Tremor of both hands; Essential hypertension 12/05/2024 9:00 AM CDT Home Care Visit [address] [address] [address] [place] [address] Dali Juarez RN SN INITIAL EVALUATION 12/05/2024 Orders Only [facility] [address] [facility] [address] [place] [address] Maryellen De Souza NP Chronic obstructive pulmonary disease with acute exacerbation (HCC) 12/05/2024 Home Care Visit [address] [place] [address] Surya Ibrahim, PT CASE COMMUNICATION 12/04/2024 11:30 AM CDT Home Care Visit [address] [place] [address] Surya Ibrahim, PT PT HOME VISIT 12/04/2024 9:30 AM CDT Office Visit [facility] Vascular and Vein Surgery [address] [facility] [address] [place] [address] Pipo Richardson MD Atherosclerosis of cahto artery of both lower extremities with intermittent claudication (Primary Dx); Bilateral carotid artery stenosis 12/04/2024 Home Care Visit [address] [place] [address] Surya Ibrahim, PT TELEPHONE ENCOUNTER 12/03/2024 10:30 AM CDT Home Care Visit [address] [place] [address] Heather Lowery, OT OT INITIAL EVALUATION 12/03/2024 Home Care Visit [address] [place] [address] Heather Lowery, OT CASE COMMUNICATION 12/03/2024 Home Care Visit [address] [address] [place] [address] Surya Ibrahim, PT CARE CONFERENCE 12/02/2024 Home Care Visit [address] [place] [address] Surya Ibrahim, PT TELEPHONE ENCOUNTER 12/02/2024 Telephone [facility] Medical Group Family Medicine [address] [place] [address] [address] [place] [address] Hayden Oreilly MD Additional Services Or Orders 11/29/2024 8:36 AM CDT - 11/29/2024 11:59 PM CDT Hospital Encounter [facility] Cardiac Testing [address] [place] [address] Stenosis of right carotid artery; Occlusion of left carotid artery Discharge Disposition: Discharge to home or self care 11/29/2024 8:36 AM CDT - 11/29/2024 11:59 PM CDT Hospital Encounter [facility] Cardiac Testing [address] [place] [address] Subclavian artery stenosis, left Discharge Disposition: Discharge to home or self care 11/29/2024 Home Care Visit [address] [address] [place] [address] Alison Hernandez, RN NURSE MED RECON FOR THERAPY 11/28/2024 10:00 AM CDT Home Care Visit [address] [address] [place] [address] Surya Ibrahim, PT PT OASIS START OF CARE 11/28/2024 Plan of Care Documentation [address] [address] [place] [address] 11/28/2024 Home Care Visit [address] [address] [place] [address] Surya Ibrahim, PT CASE COMMUNICATION 11/26/2024 Telephone [facility] Home Care Services [address] [place] [address] Dora Wren RN 11/26/2024 Travel 11/22/2024 11:00 AM CDT Office Visit [facility] Family Medicine [address] [facility] [address] [place] [address] Maryellen De Souza NP Chronic obstructive pulmonary disease with acute exacerbation (HCC) (Primary Dx); Essential hypertension; Generalized weakness; Tremor of both hands; Bilateral leg edema; Anxiety 11/22/2024 Telephone [facility] [address] [facility] [address] [place] [address] Hayden Oreilly MD Successful Phone Call 11/22/2024 ACO Outreach [facility] Accountable Care Organization [address] [place] [address] Dora Hua RN 11/17/2024 Orders Only [facility] Health Information Management [address] [place] [address] Scanning, Provider 11/15/2024 Orders Only [facility] Medical Group Vascular and Vein Surgery [address] [facility] [address] [place] [address] Pipo Richardson MD Aftercare following surgery of the circulatory system (Primary Dx); Stenosis of right carotid artery; Occlusion of left carotid artery; Subclavian artery stenosis, left 11/14/2024 3:00 PM CDT Office Visit [facility] Vascular and Vein Surgery [address] [place] [address] [address] [place] [address] Tabitha Ortez NP Atherosclerosis of cahto artery of both lower extremities with intermittent claudication (Primary Dx); Carotid artery calcification, unspecified laterality; Bilateral carotid artery stenosis; Numbness and tingling of left upper extremity 11/14/2024 1:44 PM CDT - 11/14/2024 11:59 PM CDT Hospital Encounter [facility] Medical Office Building [address] [place] [address] [address] [place] [address] Aftercare following surgery of the circulatory system Discharge Disposition: Discharge to home or self care 11/14/2024 1:43 PM CDT - 11/14/2024 11:59 PM CDT Hospital Encounter [facility] Medical Office Building [address] [place] [address] [address] [place] [address] Aftercare following surgery of the circulatory system Discharge Disposition: Discharge to home or self care 11/08/2024 10:45 AM YOGA COORDINATOR Office Visit [facility] [address] [facility] [address] [place] [address] Maryellen De Souza NP Chronic obstructive pulmonary disease with acute exacerbation (HCC) (Primary Dx); Pneumonia due to infectious organism, unspecified laterality, unspecified part of lung 10/26/2024 Nurse Triage [facility] [address] [facility] [address] [place] [address] Hayden Oreilly MD 10/25/2024 Orders Only [address] [address] Cony Caba NP 10/25/2024 Nurse Triage [facility] [address] [facility] [address] [place] [address] Hayden Oreilly MD 10/25/2024 Telephone [facility] [address] [facility] [address] [place] [address] Hayden Oreilly MD LAVELL Questions 10/18/2024 Telephone [facility] [address] [facility] [address] [place] [address] Hayden Oreilly MD Medication Request 10/18/2024 Telephone [facility] [address] [facility] [address] [place] [address] Hayden Oreilly MD Medical Question/Miscellaneou s 10/16/2024 3:15 PM YOGA COORDINATOR Office Visit [facility] Care at [address] [place] [address] Tamar Carpio PA Shortness of breath (Primary Dx); Cough, unspecified type 10/16/2024 Nurse Triage [facility] [address] [facility] [address] [place] [address] Hayden Oreilly MD 2024 Telephone [facility] [address] [facility] [address] [place] [address] Hayden Oreilly MD Forms Request 10/14/2024 Telephone [facility] [address] [facility] [address] [place] [address] Hayden Oreilly MD Medical Question/Miscellaneou s from Last 3 Months Immunizations Immunization Administration [...] materials from doctor or pharmacy Always 12/31/2024 [facility] Utilities Answer Date Recorded In the past 12 months has e [employer], gas, oil, or water company threatened [...] often do you attend chur ch or presybeterian services? Never 11/28/2024 Do you belong to any clubs o r organizations such as yazdanism groups, unions, fraternal or athletic groups, or [...] any time in the past 12 m onths, were you homeless or living in a long term (including now)? No 11/28/2024 Personal Safety Answer Date Recorded Have you ever been in or are you currently in a harmful physical or emotional relationship or is someone making you feel afraid or unsafe? 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 YOGA COORDINATOR Gender Identity Not on file Sexual Orientation [...] 01/02/2025 2:08 PM CDT Plan of Treatment Health Maintenance [...] Completed 018, 05/16/2017, 04/04/2016, Additional history exists Osteoporosis Screening-Bone Density Scan Discontinued 08/22/2023, 06/29/2020, 06/15/2018, Additional history exists Influenza Vaccine Completed 07/08/2024, , 06/07/2022, Additional history exists [id number]|2025-01-21 13:19:38|2025-01-21 13:19:38|[email or web address]||||"EGD START 1254, END 1256 COLONOSCOPY START 1259, END 1315"
--- OUTSIDE RECORDS SUMMARY | 2025-01-10 05:33 | XMS_ITS | Encounter Summary ---
Author Organization [facility] Healthcare Address [address] [place] [address] Care Team Providers Care Towel Folder Name Role Phone Hayden Oreilly MD Primary Care Provi erinn Pipo Richardson MD Unavailable [phone] Layne MauriceW Unavailable Encounter Details Date Type Department Care Team (Late st Contact Info) Description 12/06/2024 Results Follow-Up [facility] Medical Group Family Medicine [address] [place] [address] Maryellen De Souza NP [address] [place] [address] Social History Tobacco Use Types Packs/Day Years Used Date Smoking Tobacco: Former Cigarettes Q uit: 09/04/1992 Smokeless Tobacco: Never Comments:Quit 20 years ago Alcohol Use Standard Drinks/Week Comments Not Currently 0 (1 standard drink = 0.6 oz pur e alcohol) OASIS D0700: Social Isolation Answer Da te Recorded Frequency of experiencing loneliness or isolatio n Never 11/28/2024 OASIS A1250: Transportation Answer Date Recorded Lack of Transportation (Medical) No 11/28/2024 Lack of Transportation (Non-Medical) No 11/28/2024 Patient Unable or Declines to Respond No 11/28/2024 OASIS B1300: Health Literacy Answer Ulisses e Recorded Frequency of needing help to read materials from doctor or pharmacy Never 11/28/2024 [facility] Utilities Answer Date Recorded In the [...] often do you attend chur ch or yazdanism services? Never 11/28/2024 Do you belong to any clubs o r organizations such as orthodoxy groups, unions, fraternal or athletic groups, or [...] in a nursing home (including now)? No 11/28/2024 Personal Safety Answer Date Recorded Have you ever been in or are you currently in a harmful physical or emotional relationship or is someone making you feel afraid or unsafe? 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 Author ACO SW Goal - Patient will be able to safely move about their home ACO Care Management On track(2024 9:53 AM CDT) No Layne Maurice, ICE SCRAPER Note: Problem: Barriers to Home Accessibility Interventions: - Assess home accessibility barriers. - Identify equipment or modifications needed to address barrier(s). - Research available resources to improve home accessibility. - Refer to appropriate resources or alternate housing options. documented as of this encounter Visit Diagnoses Not on filedocumented in this encounter Care Teams Towel Folder Relationship Specialty Start Date End Date Hayden Oreilly MD [address] [facility] [address] [place] [address] PCP - General Family Medicine 01/31/19 Pipo Richardson MD [address] [place] [address] Surgeon Vascular Surgery 02/27/24 Layne Maurice, ICE SCRAPER [address] [place] [address] Running Instructor 11/22/24 documented as of this encounter
--- OUTSIDE RECORDS SUMMARY | 2025-01-10 05:33 | XMS_ITS | Encounter Summary ---
Author Organization [facility] Healthcare Address [address] [place] [address] Care Team Providers Care Bootmaker Name Role Phone Hayden Oreilly MD Primary Care Provi erinn Ppio Richardson MD Unavailable [phone] Layne MauriceW Unavailable [phone] Reason for Visit * Reason Onset Date Comments Medical Question/Miscellaneous 12/26/2024 Encounter Details Date Type Department Care Team (Late st Contact Info) Description 12/26/2024 Telephone [facility] Medical Group Family Medicine [address] [place] [address] Hayden Oreilly MD [address] [place] [address] Medical Question/Miscellaneou s Social History [...] materials from doctor or pharmacy Never 11/28/2024 [facility] Utilities Answer Date Recorded In [...] any time in the past 12 m [facility], were you homeless or living in a skilled nursing (including now)? No 11/28/2024 Personal Safety Answer Date Recorded Have you ever been in or are you currently in a harmful physical or emotional relationship or is someone making you feel afraid or unsafe? 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 ASSESSMENT RN Gender Identity Not on file Sexual Orientation Not on file documented as of this encounter Miscellaneous Notes * Telephone Encounter - Vanda Cunningham MA - 12/26/2024 2:20 PM CDT LDVM for Yanet due to it being a confidential VM. * Telephone Encounter - Maryellen De Souza NP - 12/26/2024 2:00 PM CDT Ok * Telephone Encounter - Denisha Blount - 12/26/2024 11:40 AM CDT Medical Question/Miscellaneous Callerâ€™s Concern: Yanet with [facility] Home Health asking for Dr. Oreilly to approve the state of care on the referral to be 12-31-2024. Susie Advise. Does message need to be routed? Yes-Action [...] on filedocumented in this encounter Care Teams Bootmaker Relationship Specialty Start Date End Date Hayden Oreilly MD [address] [facility] [address] [place] [address] PCP - General Family Medicine 01/31/19 Pipo Richardson MD [address] [place] [address] Surgeon Vascular Surgery 02/27/24 Layne Maurice, ROSARIO [address] [place] [address] [address] [place] [address] Casing Crew 11/22/24 documented as of this encounter
--- NOTE | 2025-01-10 05:49 | ECG_ITS ---
Test Date: 2025-01-10 05:52:40 Measurements Intervals [place] Rate: 104 P: 0 NE: 0 QRS: 28 QRSD: 95 T: 30 QT: 335 QTc: 442 Interpretive Statements SINUS RHYTHM WITH FREQUENT PACS NONSPECIFIC ST & T-WAVE ABNORMALITY Compared to ECG 11/17/2024 11:56:12 NO SIGNIFICANT CHANGES Electronically Signed On 01-10-2025 12:15:55 CDT by Carmina Brambila M.D.
[2025-01-10 06:14] LABS: Alanine Aminotransferase 20 U/L (6-35); Albumin Level 4.4 g/dL (3.5-5.1); Alkaline Phosphatase 92 U/L (38-126); Anion Gap 13 mmol/L (4-12); Aspartate Amino Transferase 20 U/L (14-36); Bilirubin,Total 0.8 mg/dL (0.2-1.3); Blood Urea Nitrogen 86 mg/dL (7-17); Calcium 9.6 mg/dL (8.4-10.2); Carbon Dioxide 30 mmol/L (22-30); Chloride 93 mmol/L (98-107); Estimated CRCL calculation 21 ml/min; Estimated Glomerular Filt Rate 30; Glucose 170 mg/dL (65-110); Potassium 2.9 mmol/L (3.4-5.0); Sodium 136 mmol/L (137-145)
[2025-01-10 06:17] LABS: Basophils Percent Auto 0.1 % (0.2-1.2); Eosinophils Absolute Auto 0.1 K/mm3 (0-0.3); Eosinophils Percent Auto 0.8 % (0-4.4); Hematocrit 30.1 % (37.0-47.0); Hemoglobin 8.5 g/dL (12.0-15.0); Immature Granulocyte Absolute 0.16 K/mm3 (0.00-0.031); Immature Granulocyte Percent A 0.9 % (0-0.5); Lymphocytes Absolute Auto 3.32 K/mm3 (0.9-3.2); Lymphocytes Percent Auto 17.8 % (18.3-44.2); Mean Corpuscular HGB Conc 28.2 g/dl (32-36); Mean Corpuscular Hemoglobin 20.3 pg (26-34); Mean Corpuscular Volume 71.8 fl (80-100); Mean Platelet Volume 9.7 fl (7.4-10.4); Monocytes Absolute Auto 2.4 K/mm3 (0.1-0.6); Monocytes Percent Auto 13.1 % (2.6-8.5); Neutrophils Absolute Auto 12.5 K/mm3 (1.3-6.7); Neutrophils Percent Auto 67.3 % (45.5-73.1); Nucleated Red Blood Cells Perc 0.2 % (0.0-0.2); Platelet Count Result 576 k/mm3 (150-375); Red Blood Count 4.19 M/mm3 (4.2-5.4); Red Cell Distribution Width 19.8 % (11.5-14.5); White Blood Count 18.6 K/mm3 (4.5-10.0)
[2025-01-10 06:36] LABS: Band Neutrophils Percent 0 % (0-6); Hypochromasia 1+; Microcytosis 1+ (NORMAL); Ovalocytes 1+; Platelet Estimate Increased (Adequate); Schistocytes None Seen
--- NOTE | 2025-01-10 07:31 | ED_ITS ---
HPI - Dizziness General Chief Complaint: Dizziness Stated Complaint: dizziness, sob Time Seen by Provider: 01/10/25 07:11 Source: patient and family Mode of arrival: ambulatory Limitations: no limitations History of Present Illness HPI Narrative: 84 years old white female live with her daughter who brought her to the ED by private car complaining of dizziness for the last 2 days everything is moving and while bleed, been coughing for 2 months, right ear ache, patient was seen by her family physician 2 weeks ago who increased her diuretics, patient was seen by business development representative 3 days ago who gave her new prescription of a new medications, unknown name, did not get it yet. Patient denies any fever, chills, nausea, vomiting, shortness of breath or chest pain Patient normally go to [facility]. Related Data Home Medications Medication Instructions Recorded Confirmed Last Taken Type albuterol sulfate 2.5 mg/3 mL 2.5 mg inhalation Q4-6H PRN 10/26/24 10/27/24 10/27/24 History (0.083 %) solution for nebulization shortness of breath or wheezing albuterol sulfate 90 mcg/actuation 2 puff inhalation Q4-6H PRN 10/26/24 10/27/24 10/27/24 History aerosol inhaler shortness of breath or wheezing alendronate 70 mg tablet 70 mg PO WEEKLY 10/26/24 10/27/24 Unknown History aspirin 81 mg chewable tablet 81 mg PO DAILY 10/26/24 10/27/24 Unknown History atorvastatin 40 mg tablet 40 mg PO QPM 10/26/24 10/27/24 Unknown History benzonatate 100 mg capsule 100 mg PO TID PRN cough 10/26/24 10/27/24 Unknown History cefdinir 300 mg capsule 300 mg PO Q12H 10/26/24 10/27/24 Unknown History clopidogrel 75 mg tablet 75 mg PO DAILY 10/26/24 10/27/24 Unknown History levothyroxine 125 mcg tablet 125 mcg PO DAILY 10/26/24 10/27/24 Unknown History meclizine 25 mg tablet 25 mg PO QID PRN dizziness 10/26/24 10/27/24 Unknown History pantoprazole 40 mg tablet,delayed 40 mg PO DAILY 10/26/24 10/27/24 Unknown History release valsartan 160 1 tablet PO DAILY 10/26/24 10/27/24 Unknown History mg-hydrochlorothiazide 25 mg tablet Allergies Allergy/AdvReac Type Severity Reaction Status Date / Time levofloxacin AdvReac Abdominal Verified 01/10/25 05:32 Pain Review of Systems 2 Review of Systems: All systems reviewed & are unremarkable except as noted in HPI and below PMFSH Past Medical History Medical History Common carotid artery stenosis (~04/2024) 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 CVA (cerebral vascular accident) (04/2024) Osteoporosis Essential hypertension GERD (gastroesophageal reflux disease) Hypothyroidism Emphysema/COPD Surgical History Surgical History Peripheral arterial disease with history of revascularization (~04/2024) Bilateral lower extremity stents Status post cataract extraction of both eyes with insertion of intraocular lens Status post open reduction with internal fixation of fracture Left patellar fracture History of loop recorder Status post urethral diverticulectomy History of appendectomy History of tonsillectomy and adenoidectomy History of bladder suspension procedure Family History Family History Sibling Asthma Father Diabetes mellitus Hypertension Social History Social History Social History: The patient been since 2023. She is a former smoker she smoked 2.5 packs of cigarettes per day but quit in 1993. She used to drink 3-4 alcoholic beverages a week in still will occasionally drink alcohol in moderation. She raised 5 children. 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 She still drives. She ambulates with a cane. Code status: Full code Surrogate decision maker: Meera Schultz (daughter) Smoking status: Former smoker Alcohol intake: former Substance use: never Do You Feel Safe in your Home?: Yes Lack of Transportation: No Lack of Food: Never True Current Housing: I Have Housing Concerned About Future Housing: No Difficulty Paying Gas/Electric Bills: No Difficulty Paying for Meds: No Currently Unemployed: No Education: High School Diploma/GED Difficulty w/ Childcare or Family Care: No Spiritual care concerns: No Exam 2 Narrative: General appearance: Well-developed, well-nourished Skin: Normal color Head: Normocephalic, nontraumatic Eyes: Clear conjunctiva ENT: Oropharynx normal, ears normal, nose normal Neck: Supple, nontender Chest and respiratory: Airway patent, no respiratory distress, no accessory muscle use scattered wheezing and rhonchi bilaterally Heart: Regular rate/rhythm Abdomen: Soft, nontender, no organomegaly, quiet bowel sounds Vascular: Normal peripheral pulses, normal capillary refill. Musculoskeletal: Normal range of motion, nontender back Neurologic: Alert and oriented ×3, AIRCRAFT INSPECTION RECORD CLERK is normal as tested, no gross motor deficit Course Vital Signs Vital signs: Vital Signs Temperature 36.5 C 01/10/25 05:44 Pulse Rate 90 01/10/25 05:44 Respiratory Rate 22 H 01/10/25 05:44 Blood Pressure 133/92 H 01/10/25 05:44 Pulse Oximetry 96 01/10/25 05:44 Oxygen Delivery Room Air 01/10/25 05:44 Temperature 36.5 C 01/10/25 05:44 Pulse Rate 102 H 01/10/25 08:54 Respiratory Rate 20 01/10/25 08:54 Blood Pressure 110/54 L 01/10/25 07:59 Pulse Oximetry 95 01/10/25 08:40 Oxygen Delivery Room Air 01/10/25 08:40 MDM - Dizziness MDM Narrative Medical decision making narrative: Patient came with dizziness and productive cough Vital signs are stable Physical examination showing generalized wheezing and rhonchi bilaterally, intermittent productive cough, Differential diagnosis include vertigo, stroke, congestive heart failure, COPD exacerbation, pneumonia, pleural effusion, electrolyte imbalance, dehydration Blood workup today includes CBC, CMP, troponin, coags showed WBC 18.6, hemoglobin 8.5 which is similar to the past, platelet 576, potassium 2.9, creatinine 1.6 which is higher compared to the past, Chest x-ray showed clear lungs EKG on arrival showed atrial fibrillation at [address] head without contrast showed no acute abnormalities Diagnosis: Hypokalemia, JAZIEL, COPD, dizziness Admit to hospitalist Differential Diagnosis Differential diagnosis: Likely other (As above) Medical Records Attestation: I reviewed the patient's medical records. Lab Data Attestation: I reviewed the patient's lab results. 01/10/25 05:59 01/10/25 05:59 Labs: Lab Results 01/10/25 01/10/25 Range/Units 05:58 05:59 WBC 18.6 H (4.5-10.0) K/mm3 RBC 4.19 L (4.2-5.4) M/mm3 Hgb 8.5 L (12.0-15.0) g/dL Hct 30.1 L (37.0-47.0) % MCV 71.8 L (80-100) fl MCH 20.3 L (26-34) pg MCHC 28.2 L (32-36) g/dl RDW 19.8 H (11.5-14.5) % Plt Count 576 H D (150-375) k/mm3 MPV 9.7 (7.4-10.4) fl Immature Gran % (Auto) 0.9 H (0-0.5) % Neut % (Auto) 67.3 (45.5-73.1) % Lymph % (Auto) 17.8 L (18.3-44.2) % [place] % (Auto) 13.1 H (2.6-8.5) % Eos % (Auto) 0.8 (0-4.4) % Baso % (Auto) 0.1 L (0.2-1.2) % Lymph # (Auto) 3.32 H (0.9-3.2) K/mm3 [place] # (Auto) 2.4 H (0.1-0.6) K/mm3 Eos # (Auto) 0.1 (0-0.3) K/mm3 Baso # (Auto) 0.0 (0.0-0.1) K/mm3 Abs Immat Gran (auto) 0.16 H (0.00-0.031) K/mm3 Absolute Neuts (auto) 12.5 H (1.3-6.7) K/mm3 Absolute Nucleated RBC 0.030 H (0.0-0.012) K/mm3 Band Neutrophils % 0 (0-6) % Nucleated RBC % 0.2 (0.0-0.2) % Platelet Estimate Increased (Adequate) Hypochromasia 1+ Microcytosis 1+ (NORMAL) Ovalocytes 1+ Schistocytes None seen Sodium 136 L (137-145) mmol/L Potassium 2.9 L (3.4-5.0) mmol/L Chloride 93 L (98-107) mmol/L Carbon Dioxide 30 (22-30) mmol/L Anion Gap 13 H (4-12) mmol/L BUN 86 H D (7-17) mg/dL Creatinine 1.61 H (0.7-1.0) mg/dL Estim Creat Clear Calc 21 ml/min Estimated GFR 30 L (59 - ) Glucose 170 H (65-110) mg/dL Calcium 9.6 (8.4-10.2) mg/dL Total Bilirubin 0.8 (0.2-1.3) mg/dL AST 20 (14-36) U/L ALT 20 (6-35) U/L Alkaline Phosphatase 92 (38-126) U/L Troponin I 0.030 (0.000-0.034) ng/mL NT-Pro-B Natriuret Pep 1180 H (19.9-100) pg/mL Total Protein 8.0 (6.3-8.2) g/dL Albumin 4.4 (3.5-5.1) g/dL TSH 1.770 (0.465-4.680) uIU/mL Imaging Data Radiologist's impression: Impressions Chest X-Ray 01/10/25 06:32 Impression: Clear lungs. T11 compression deformity. ECG Data EKG #1: Attestation: I personally reviewed and interpreted this ECG as follows: ECG completion date: 01/10/25 ECG completion time: 08:13 Interpretation: Atrial fibrillation at 104 beats per minute, nonspecific ST T-wave abnormality, abnormal EKG, compared to EKG on November 17, 2024 T-wave abnormality now present Critical Care Time Critical Care Time Critical Care Time: No Discharge Plan Discharge Clinical Impression: Dizziness, Acute hypokalemia Patient Disposition: Still a Patient Condition: Stable
--- OUTSIDE RECORDS SUMMARY | 2025-01-10 07:58 | XMS_ITS | Encounter Summary ---
Author Organization [facility] Healthcare Address [address] [place] [address] Care Team Providers Care Gum Remover Name Role Phone Hayden Oreilly MD Primary Care Provi erinn Pipo Richardson MD Unavailable [phone] Layne MauriceW Unavailable [phone] Encounter Details Date Type Department Care Team (Late st Contact Info) Description 11/17/2024 Orders Only [facility] Information Management [address] [place] [address] Scanning, Provider Social History Tobacco Use Types Packs/Day Years Used Date Smoking Tobacco: Former Cigarettes Q uit: 09/04/1992 Smokeless Tobacco: Never Comments:Quit 20 years ago Alcohol Use Standard Drinks/Week Comments Not Currently 0 (1 standard drink = 0.6 oz pur e alcohol) [facility] Utilities Answer Date Recorded In the past 12 months has [employer] gas, oil, or water [employer] threatened to shut off services in your [...] week 05/09/2024 How often do you attend [facility] or spiritism services? Never 05/09/2024 Do you belong to any clubs o r organizations such as restorationist groups, unions, fraternal or athletic groups, or [...] any time in the past 12 m [facility], were you homeless or living in a senior care (including now)? No 05/09/2024 Personal Safety Answer Date Recorded Have you ever been in or are you currently in a harmful physical or emotional relationship or is someone making you feel afraid or unsafe? 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 [place] [address] Surgeon Vascular Surgery 02/27/24 Layne Maurice, COMPUTED TOMOGRAPHY TECHNOLOGIST [address] [place] [address] Chief Marketing Officer 11/22/24 documented as of this encounter
--- OUTSIDE RECORDS SUMMARY | 2025-01-10 07:59 | XMS_ITS | Encounter Summary ---
Author Organization [facility] Healthcare Address [address] [place] [address] Care Team Providers Care Hardness Inspector Name Role Phone Hayden Oreilly MD Primary Care Provi erinn Pipo Richardson MD Unavailable [phone] Layne MauriceW Unavailable [phone] Reason for Visit * Reason Onset Date Comments Additional Services Or Orders 01/06/2025 Encounter Details Date Type Department Care Team (Late st Contact Info) Description 01/06/2025 Telephone [facility] Medical Group Family Medicine [address] [place] [address] Hayden Oreilly MD [address] [place] [address] Additional Services Or Orders Social [...] materials from doctor or pharmacy Always 12/31/2024 [facility] Utilities Answer Date Recorded In [...] often do you attend chur ch or anglican services? Never 11/28/2024 Do you belong to any clubs o r organizations such as druze groups, unions, fraternal or athletic groups, or [...] any time in the past 12 m [facility], were you homeless or living in a snf (including now)? No 11/28/2024 Personal Safety Answer Date Recorded Have you ever been in or are you currently in a harmful physical or emotional relationship or is someone making you feel afraid or unsafe? 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 Gender Identity Not on file Sexual Orientation [...] in home Additional Comments: Surya PT with [facility] home care called for verbal auth [...] on filedocumented in this encounter Care Teams Hardness Inspector Relationship Specialty Start Date End Date Hayden Oreilly MD [address] [facility] [address] [place] [address] PCP - General Family Medicine 01/31/19 Pipo Richardson MD [address] [place] [address] Surgeon Vascular Surgery 02/27/24 Layne Maurice LCSW [address] [place] [address] [address] [place] [address] Bobcat Driver/Labor 11/22/24 documented as of this encounter
--- OUTSIDE RECORDS SUMMARY | 2025-01-10 07:59 | XMS_ITS | Clinical Summary ---
Author Organization [facility] [address] [place] [address] Care Team Providers Care Hvac R Instructor Name Role Phone Hayden Oreilly MD Primary Care Provi erinn Pipo Richardson MD Unavailable [phone] Layne MauriceW Unavailable [phone] Allergies No known active allergies Medications nebulizers [...] 10/16/2024 Assessment & Plan (10/16/2024 3:17 PM COAL TRAM DRIVER): O2 saturation between 92-94% at rest Recommended ER evaluation, patient declined Will treat for possible COPD exacerbation again with prednisone Albuterol as needed Already recently treated with prednisone, z pack Please see your PCP or press officer in the future for recurrent COPD exacerbations Cough 10/16/2024 Assessment & Plan (10/16/2024 3:16 PM COAL TRAM DRIVER): Mucinex as expectorant Albuterol nebulizer Prednisone Likely d/t COPD exacerbation Bronchitis 09/23/2024 Assessment & Plan (09/23/2024 11:51 AM COAL TRAM DRIVER): Covid and flu test negative Wheezing throughout [...] 09/23/2024 Assessment & Plan (09/23/2024 12:04 PM COAL TRAM DRIVER): Rapid strep positive Initiate Zithromax as this [...] brachial pulses with equal and good hand stereo equipment repairer to bilateral upper extremities. Plan: Symptoms are [...] (chronic obstructive pulmonary disease) 05/2024 Atherosclerosis of kalispel ar mian of both lower extremities with [...] 01/09/2025 12:30 PM CDT Home Care Visit [address] [address] [address] [place] [address] Yumiko Guevara LPN SN HOME VISIT 01/09/2025 10:00 AM CDT Home Care Visit [address] [address] [address] [place] [address] Surya Ibrahim, PT PT HOME VISIT 01/08/2025 Results Follow-Up [facility] Pulmonology [address] [place] [address] [place] [phone] Nasreen Watson MD 01/07/2025 12:30 PM CDT Home Care Visit [address] [address] [address] [place] [address] Heather Lowery, OT OT INITIAL EVALUATION 01/06/2025 Results Follow-Up [facility] [address] [facility] [address] [place] [phone] Maryellen De Souza NP 01/06/2025 Telephone [facility] Family [facility] [address] [facility] [address] [place] [phone] Hayden Oreilly MD Additional Services Or Orders 01/06/2025 Telephone [facility] [address] [facility] [address] [place] [phone] Hayden Oreilly MD Forms Request 01/06/2025 Home Care Visit [address] [address] [address] [place] [address] Surya Ibrahim, PT CASE COMMUNICATION 01/06/2025 Home Care Visit [address] [address] [address] [place] [address] Surya Ibrahim, PT CASE COMMUNICATION 01/06/2025 Telephone [facility] Family Medicine [address] [facility] [address] [place] [address] Hayden Oreilly MD Additional Services Or Orders 01/03/2025 10:00 AM CDT Home Care Visit [address] [address] [address] [place] [address] Surya Ibrahim, PT PT INITIAL EVALUATION 01/02/2025 3:42 PM CDT - 01/02/2025 11:59 PM CDT Hospital Encounter [facility] Diagnostic Imaging [address] [place] [address] Chronic obstructive pulmonary disease, unspecified COPD type (HCC) Discharge Disposition: Discharge to home or self care 01/02/2025 2:54 PM CDT - 01/02/2025 11:59 PM CDT Hospital Encounter [facility] Cardiac Testing [address] [place] [address] Bilateral leg edema; SOB (shortness of breath) on exertion Discharge Disposition: Discharge to home or self care 01/02/2025 2:15 PM CDT Office Visit [facility] Medical [facility] Pulmonology [address] [phone] Nasreen Watson MD Shortness of breath (Primary Dx); Chronic obstructive pulmonary disease, unspecified COPD type (HCC) 12/31/2024 2:00 PM CDT Home Care Visit [address] [place] [address] Dali Juarez RN SN OASIS START OF CARE 12/31/2024 Plan of Care Documentation [address] [place] [address] 12/26/2024 4:00 PM CDT Office Visit [facility] Family Medicine [address] [facility] [address] [place] [address] Maryellen De Souza NP Chronic obstructive pulmonary disease, unspecified COPD type (HCC) (Primary Dx); Bilateral leg edema; SOB (shortness of breath) on exertion; Constipation, unspecified constipation type 12/26/2024 Telephone [facility] Home Care Services [address] [place] [address] Dora Wren RN 12/26/2024 Travel 12/26/2024 Telephone [facility] Medicine [address] [facility] [address] [place] [phone] Hayden Oreilly MD Medical Question/Miscellaneou s 12/24/2024 Telephone [facility] Medicine [address] [facility] [address] [place] [address] Hayden Oreilly MD Med Refill 12/24/2024 Orders Only [facility] Accountable Care Organization [address] [place] [address] ProviderAmrik MD 12/24/2024 Telephone [facility] Medicine [address] [facility] [address] [place] [address] Hayden Oreilly MD Successful Phone Call 12/24/2024 Documentation [facility] Vascular and Vein Surgery [address] [facility] [address] [place] [address] Iwona Rajan MA 12/23/2024 Telephone [facility] [address] [facility] [address] [place] [address] Hayden Oreilly MD LAVELL Questions 12/19/2024 Orders Only [facility] Surgery [address] [facility] [address] [place] [address] Orville Menard MD Right kidney mass (Primary Dx); Kidney lesion 12/19/2024 Telephone [facility] Surgery [address] [facility] [address] [place] [address] Jaqui Moreno RMA 12/07/2024 Home Care Visit [facility] Health [address] [place] [address] Surya Ibrahim, PT PT OASIS TRANSFER W/DC 12/06/2024 Results Follow-Up [facility] Family [facility] [address] [facility] [address] [place] [address] Maryellen De Souza NP 12/06/2024 Telephone [facility] [address] [facility] [address] [place] [address] Maryellen De Souza NP patient assistance 12/05/2024 3:05 PM CDT Ancillary Procedure [facility] Diagnostic Imaging [address] [facility], [facility] [address] [place] [address] 12/05/2024 3:00 PM CDT Lab [facility] Lab [address] [facility] [address] [place] [address] Bilateral leg edema 12/05/2024 2:15 PM CDT Office Visit [facility] Family [facility] [address] [facility] [address] [place] [address] Maryellen De Souza NP Chronic obstructive pulmonary disease with acute exacerbation (HCC) (Primary Dx); Generalized weakness; Bilateral leg edema; Tremor of both hands; Essential hypertension 12/05/2024 9:00 AM CDT Home Care Visit [address] [address] [address] [place] [address] Dali Juarez RN SN INITIAL EVALUATION 12/05/2024 Orders Only [facility] [address] [facility] [address] [place] [address] Maryellen De Souza NP Chronic obstructive pulmonary disease with acute exacerbation (HCC) 12/05/2024 Home Care Visit [address] [place] [address] Surya Ibrahim, PT CASE COMMUNICATION 12/04/2024 11:30 AM CDT Home Care Visit [address] [place] [address] Surya Ibrahim, PT PT HOME VISIT 12/04/2024 9:30 AM CDT Office Visit [facility] Vascular and Vein Surgery [address] [facility] [address] [place] [address] Pipo Richardson MD 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 with intermittent claudication (Primary Dx); Bilateral carotid artery stenosis 12/04/2024 Home Care Visit [address] [place] [address] Surya Ibrahim, PT TELEPHONE ENCOUNTER 12/03/2024 10:30 AM CDT Home Care Visit [address] [place] [address] Heather Lowery, OT OT INITIAL EVALUATION 12/03/2024 Home Care Visit [address] [place] [address] Heather Lowery, OT CASE COMMUNICATION 12/03/2024 Home Care Visit [address] [address] [address] [place] [address] Surya Ibrahim, PT CARE CONFERENCE 12/02/2024 Home Care Visit [address] [place] [address] Surya Ibrahim, PT TELEPHONE ENCOUNTER 12/02/2024 Telephone [facility] Medical Group Family Medicine [address] [place] [address] [address] [place] [address] Hayden Oreilly MD Additional Services Or Orders 11/29/2024 8:36 AM CDT - 11/29/2024 11:59 PM CDT Hospital Encounter [facility] Cardiac Testing [address] [place] [address] Stenosis of right carotid artery; Occlusion of left carotid artery Discharge Disposition: Discharge to home or self care 11/29/2024 8:36 AM CDT - 11/29/2024 11:59 PM CDT Hospital Encounter [facility] Cardiac Testing [address] [place] [address] Subclavian artery stenosis, left Discharge Disposition: Discharge to home or self care 11/29/2024 Home Care Visit [address] [address] [address] [place] [address] Alison Hernandez, RN NURSE MED RECON FOR THERAPY 11/28/2024 10:00 AM CDT Home Care Visit [address] [address] [address] [place] [address] Surya Ibrahim, PT PT OASIS START OF CARE 11/28/2024 Plan of Care Documentation [address] [address] [address] [place] [address] 11/28/2024 Home Care Visit [address] [address] [address] [place] [address] Surya Ibrahim, PT CASE COMMUNICATION 11/26/2024 Telephone [facility] Home Care Services [address] [place] [address] Dora Wren RN 11/26/2024 Travel 11/22/2024 11:00 AM CDT Office Visit [facility] Family Medicine [address] [facility] [address] [place] [address] Maryellen De Souza NP Chronic obstructive pulmonary disease with acute exacerbation (HCC) (Primary Dx); Essential hypertension; Generalized weakness; Tremor of both hands; Bilateral leg edema; Anxiety 11/22/2024 Telephone [facility] [address] [facility] [address] [place] [address] Hayden Oreilly MD Successful Phone Call 11/22/2024 ACO Outreach [facility] Accountable Care Organization [address] [place] [address] Dora Hua RN 11/17/2024 Orders Only [facility] Health Information Management [address] [place] [address] Scanning, Provider 11/15/2024 Orders Only [facility] Medical Group Vascular and Vein Surgery [address] [facility] [address] [place] [address] Pipo Richardson MD Aftercare following surgery of the circulatory system (Primary Dx); Stenosis of right carotid artery; Occlusion of left carotid artery; Subclavian artery stenosis, left 11/14/2024 3:00 PM CDT Office Visit [facility] Vascular and Vein Surgery [address] [place] [address] [address] [place] [address] Tabitha Ortez NP 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 with intermittent claudication (Primary Dx); Carotid artery calcification, unspecified laterality; Bilateral carotid artery stenosis; Numbness and tingling of left upper extremity 11/14/2024 1:44 PM CDT - 11/14/2024 11:59 PM CDT Hospital Encounter [facility] Medical Office Building [address] [place] [address] [address] [place] [address] Aftercare following surgery of the circulatory system Discharge Disposition: Discharge to home or self care 11/14/2024 1:43 PM CDT - 11/14/2024 11:59 PM CDT Hospital Encounter [facility] Medical Office Building [address] [place] [address] [address] [place] [address] Aftercare following surgery of the circulatory system Discharge Disposition: Discharge to home or self care 11/08/2024 10:45 AM COAL TRAM DRIVER Office Visit [facility] [address] [facility] [address] [place] [address] Maryellen De Souza NP Chronic obstructive pulmonary disease with acute exacerbation (HCC) (Primary Dx); Pneumonia due to infectious organism, unspecified laterality, unspecified part of lung 10/26/2024 Nurse Triage [facility] [address] [facility] [address] [place] [address] Hayden Oreilly MD 10/25/2024 Orders Only [address] [address] Cony Caba NP 10/25/2024 Nurse Triage [facility] [address] [facility] [address] [place] [phone] Hayden Oreilly MD 10/25/2024 Telephone [facility] [address] [facility] [address] [place] [address] Hayden Orielly MD LAVELL Questions 10/18/2024 Telephone [facility] [address] [facility] [address] [place] [address] Hayden Oreilly MD Medication Request 10/18/2024 Telephone [facility] [address] [facility] [address] [place] [address] Hayden Oreilly MD Medical Question/Miscellaneou s 10/16/2024 3:15 PM COAL TRAM DRIVER Office Visit [facility] [address] [place] [phone] Tamar Carpio PA Shortness of breath (Primary Dx); Cough, unspecified type 10/16/2024 Nurse Triage [facility] [address] [facility] [address] [place] [address] Hayden Oreilly MD 2024 Telephone [facility] [address] [facility] [address] [place] [address] Hayden Oreilly MD Forms Request 10/14/2024 Telephone [facility] [address] [facility] [address] [place] [address] Hayden Oreilly MD Medical Question/Miscellaneou s from [...] materials from doctor or pharmacy Always 12/31/2024 [facility] Utilities Answer Date Recorded In the past 12 months has e [employer], gas, oil, or water company threatened to [...] often do you attend chur ch or baptism services? Never 11/28/2024 Do you belong to [...] on file Legal Sex Female 1:28 AM COAL TRAM DRIVER Gender Identity Not on file Sexual Orientation [...] Completed 07/08/2024, , 06/07/2022, Additional history exists [id number]|2025-01-11 07:58:31|2025-01-11 07:58:31|PM.IMPN||||"Progress Note: A&P Assessment and Plan (1) Acute kidney injury: Code(s): N17.9 - Acute kidney failure, unspecified Status: Acute Assessment and Plan: Creatinine 1.61 and GFR 30. Previously 1.36 and GFR 37 on 11/17/2024. Possible UTI, however many epithelial cells which may indicate contamination. Started on ABX, follow culture. May be contributing to worsening renal function. BNP elevated, no known history of CHF. Has been reporting shortness of breath and cough. No echo on file, ordered. IV fluids: LR at 100 mL/hour x1 L, will proceed slowly due to possibility of new CHF. Trend renal function. Correct electrolytes as needed, monitor. (2) Dizziness: Code(s): R42 - Dizziness and giddiness Status: Acute Assessment and Plan: Dizziness x2 days. History of vertigo and stroke. No change in dizziness with meclizine p.o. prior to arrival. Continue patient's home med: Meclizine 15 mg daily. fall precautions (3) COPD (chronic obstructive pulmonary disease): Qualifiers: COPD type: COPD with acute lower respiratory infection Qualified Code(s): J44.0 - Chronic obstructive pulmonary disease with (acute) lower respiratory infection Code(s): J44.9 - Chronic obstructive pulmonary disease, unspecified Status: Acute Assessment and Plan: Wheezing and rhonchi upon arrival to the ED on 01/10. DuoNebs q.6 rama. Will hold on abx and steroids, no increased O2 requirement and cough remains dry (no increased sputum production). stable, no sob monitor for now IS, out of bed TID and prn (4) Acute hypokalemia: Code(s): E87.6 - Hypokalemia Status: Acute Assessment and Plan: Potassium 2.9 upon arrival. Initial repletion with 40 p.o. of KCl. Plan for recheck this evening. Monitor k 3.3 will order daily replacement daily labs to monitor (5) Elevated brain natriuretic peptide (BNP) level: Code(s): R79.89 - Other specified abnormal findings of blood chemistry Status: Acute Assessment and Plan: BNP 1180 No echo on file, ordered. Monitor I&Os daily weights. CXR showed no evidence of pulmonary congestion. On Lasix 40 mg p.o. daily and metolazone 2.5 mg Q 48 hours - continue. Hold HCTZ 25 mg daily (believes her provider d/c'd this medication) Initially presented with rhonchi and wheezing on exam, does have history of COPD. Shortness of breath secondary to COPD versus new CHF? In favor of CHF. strict I/O (6) UTI (urinary tract infection): Qualifiers: Hematuria presence: without hematuria Urinary tract infection type: acute cystitis Qualified Code(s): N30.00 - Acute cystitis without hematuria Code(s): N39.0 - Urinary tract infection, site not specified Status: Suspected Assessment and Plan: UA showed 2+ leuks, 11-20 WBC, many epithelial cells. Contaminant versus infection. Check urine culture, follow. Started on ceftriaxone on 01/10. (7) Hypothyroidism: Qualifiers: Hypothyroidism type: unspecified Qualified Code(s): E03.9 - Hypothyroidism, unspecified Code(s): E03.9 - Hypothyroidism, unspecified Status: Chronic Assessment and Plan: Continue home Synthroid. TSH 1.77 on 01/10/2025. (8) Essential hypertension: Code(s): I10 - Essential (primary) hypertension Status: Chronic Assessment and Plan: Chronic, stable Continue home medications: Lasix, metolazone. Hold valsartan-hydrochlorothiazide, believes she was taken off this medication. Monitor. Plan Patient here for dizziness that has resolved with meclizine. Some intermittent dizziness with exertion. Continue meclizine. BNP elevated along with history of lower extremity edema treated with diuretic raises concerns for new CHF. UA also concerning for UTI, however may be contaminant, follow urine culture, started on ceftriaxone. Patient currently feeling improved. 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 Pt describes this as a haze and like the room was spinning. She has a history of vertigo for which she takes meclizine. Worsening shortness of breath - has COPD. Nonproductive cough. 2 weeks ago she was seen per her PCP who increased her diuretics - LE edema significantly improved. Patient saw her manager functional 3 days ago and was given a new prescription, she is unsure of the name - possibly anticoagulant. She denies associated nausea, vomiting, diarrhea, fever, chills, chest pain, syncope, or abdominal pain. She also denies dysuria, urinary frequency, urinary hesitancy, flank pain, or suprapubic pain. in ed: 97.30° F, HR 90, R 22, 133/92, and 96% on RA. ED workup showed: WBC 18.6, hemoglobin 8.5 (previously 9.4 on 11/17/2024), potassium 2.9, creatinine 1.61 and GFR 30 (previously 1.36 and GFR 37 on 11/17/2024), BNP 1180, and initial troponin was 0.030, normal TSH, UA suspicious for UTI) however many epithelial cells, may be contaminant). CXR showed clear lungs and a T11 compression deformity. Head CT showed no acute intracranial process and moderate scattered white matter hypoattenuation consistent with chronic small-vessel ischemic disease as well as a few scattered old lacunar infarcts in the bilateral periventricular white matter in caudate nuclei. Pt is seen and examined. She is doing ok this am, reports no pain. Had been having issues with balance and strength lately. Review of Systems Review of Systems: All systems reviewed & are unremarkable except as noted in HPI and below Exam Narrative: bibasilar crackles, scattered wheezing. no peripheral edema. +heart murmur. Const: General: comfortable and no acute distress Other: , female, nontoxic appearance HENMT: Face/Nose/Sinus: Normal nares present Mouth: Yes moist mucous membranes Eyes: General: appearance normal, both eyes and all related structures Sclera: sclerae normal Pupils: Equal, round and reactive pupils present EOM: EOMs intact bilaterally Resp: Effort & Inspection: normal respiratory effort Other: bibasilar crackles, scattered wheezing. Cardio: Rate: regular rate Rhythm: regular rhythm Other: + murmur GI: Other: Abdomen soft, nondistended, nontender. Normoactive bowel sounds in all quadrants. Skin: General skin exam: normal color and no rashes or lesions noted Wounds: no wounds Neuro: Cranial nerves: Yes Equal, round and reactive pupils present Speech: normal speech Motor exam (neuro): 5/5 motor strength present throughout Sensory Exam: normal sensation Other: A&O x4. NIHSS 0. Extrem: General: normal to inspection Psych: Mental Status: mental status grossly normal Affect: normal affect Other: Good insight and judgment, pleasant Objective Data Vital Signs Vital Signs: Vital Signs - 24 hr 01/10/25 07:59 01/10/25 08:40 01/10/25 08:40 Temperature Pulse Rate 101 H 104 H Respiratory Rate 19 20 Blood Pressure 110/54 L Pulse Oximetry 98 95 Oxygen Delivery Room Air Fraction of Inspired Oxygen 01/10/25 08:54 01/10/25 09:08 01/10/25 09:50 Temperature Pulse Rate 102 H 101 H Respiratory Rate 20 23 H Blood Pressure 135/71 Pulse Oximetry 98 95 Oxygen Delivery Room Air Fraction of Inspired Oxygen 01/10/25 12:00 01/10/25 13:58 01/10/25 15:44 Temperature 97.4 F L Pulse Rate 99 89 93 Respiratory Rate 18 20 Blood Pressure 129/56 L Pulse Oximetry 100 94 Oxygen Delivery Room Air Fraction of Inspired Oxygen 01/10/25 15:44 01/10/25 15:52 01/10/25 16:00 Temperature Pulse Rate 93 86 100 Respiratory Rate 20 20 Blood Pressure Pulse Oximetry Oxygen Delivery Fraction of Inspired Oxygen 01/10/25 20:00 01/10/25 20:14 01/10/25 20:40 Temperature 97.5 F L Pulse Rate 129 H 101 H 88 Respiratory Rate 18 16 Blood Pressure 138/53 L Pulse Oximetry 96 91 Oxygen Delivery Room Air Fraction of Inspired Oxygen 21 01/10/25 20:40 01/10/25 20:50 01/10/25 20:55 Temperature Pulse Rate 88 90 Respiratory Rate 16 16 Blood Pressure Pulse Oximetry Oxygen Delivery Room Air Fraction of Inspired Oxygen 01/11/25 00:00 01/11/25 02:41 01/11/25 02:55 Temperature Pulse Rate 92 91 89 Respiratory Rate 24 H 20 Blood Pressure Pulse Oximetry Oxygen Delivery Fraction of Inspired Oxygen 01/11/25 04:00 01/11/25 05:38 Temperature 97.4 F L Pulse Rate 97 76 Respiratory Rate 17 Blood Pressure 111/61 Pulse Oximetry 98 Oxygen Delivery Fraction of Inspired Oxygen Intake/Output Intake/Output: Intake & Output 01/08/25 01/09/25 01/10/25 01/11/25 23:59 23:59 23:59 23:59 Intake Total 710 1600 Output Total 1 Balance 709 1600 Meds/Results Medications: Active Medications Generic Name Dose Route Start Last Admin Trade Name Freq PRN Reason Stop Dose Admin Acetaminophen 650 mg 01/10/25 08:17 Acetaminophen 325 Mg Tablet PO Q4H PRN Mild Pain (1-3) or Fever Albuterol/Ipratropium 3 ml 01/10/25 08:00 01/11/25 02:41 Ipratropium 0.5 Mg/Albuterol Sulfate 2.5 Mg Ampul.Neb 3 Ml INHALATION 3 ml Q6HRT RAMA Administration Alendronate Sodium 70 mg 01/13/25 06:30 Alendronate Sodium 70 Mg Tablet PO Mo@0630 RAMA Alprazolam 0.25 mg 01/10/25 14:06 Alprazolam (*Crx) 0.25 Mg Tablet PO TID PRN Anxiety Apixaban 5 mg 01/10/25 21:00 01/10/25 20:54 Apixaban 5 Mg Tablet PO 5 mg Q12HR RAMA Administration Atorvastatin Calcium 40 mg 01/10/25 18:00 01/10/25 17:34 Atorvastatin 40 Mg Tablet PO 40 mg QPM RAMA Administration Benzonatate 100 mg 01/10/25 14:06 Benzonatate 100 Mg Capsule PO TID PRN cough Docusate Sodium 100 mg 01/10/25 14:20 01/10/25 15:14 Docusate Sodium 100 Mg Capsule PO 100 mg DAILY RAMA Administration Fluticasone/Umeclidinium/Vilanterol 1 puff 01/11/25 09:00 Fluticasone/Umeclidin/Vilanter 100-62.5-25 Mcg Ellipta INHALATION DAILY RAMA Furosemide 40 mg 01/10/25 14:20 01/10/25 15:14 Furosemide 40 Mg Tablet PO 40 mg DAILY RAMA Administration Hydrochlorothiazide 25 mg 01/10/25 14:25 01/10/25 15:14 Hydrochlorothiazide 25 Mg Tablet PO Not Given DAILY RAMA Ceftriaxone Sodium 1 gm in 50 mls @ 100 mls/hr 01/10/25 15:00 01/10/25 15:13 Rocephin 1 Gm/Ns 50 Ml IVPB 100 mls/hr Q24H RAMA Administration Levothyroxine Sodium 125 mcg 01/11/25 06:30 01/11/25 05:09 Levothyroxine Sodium 125 Mcg Tablet PO 125 mcg DAILY@0630 RAMA Administration Meclizine HCl 25 mg 01/10/25 14:06 01/10/25 15:14 Meclizine Hcl 25 Mg Tablet PO 25 mg QID PRN Administration dizziness Meloxicam 15 mg 01/10/25 14:20 01/10/25 15:14 Meloxicam 7.5 Mg Tablet PO 15 mg DAILY RAMA Administration Metolazone 2.5 mg 01/11/25 09:00 Metolazone 2.5 Mg Tablet PO Q48HR RAMA Pantoprazole Sodium 40 mg 01/10/25 14:20 01/10/25 15:14 Pantoprazole 40 Mg Tablet PO 40 mg DAILY RAMA Administration Polyethylene Glycol 17 gm 01/10/25 14:06 Polyethylene Glycol 3350 17 Gm Powd.Pack PO DAILY PRN constipation Valsartan 160 mg 01/10/25 14:20 01/10/25 15:14 Valsartan 160 Mg Tablet PO Not Given DAILY RAMA Vitamin D 2,000 units 01/10/25 14:20 01/10/25 15:14 Cholecalciferol 1,000 Units Tablet PO 2,000 units DAILY RAMA Administration Radiology Results: ITS Impressions Chest X-Ray 01/10/25 06:32 Impression: Clear lungs. T11 compression deformity. Head CT 01/10/25 08:33 IMPRESSION: 1. No acute intracranial process. 2. 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 Labs Labs: Laboratory Results - last 24 hr 01/10/25 01/10/25 01/10/25 05:58 08:22 17:12 WBC RBC Hgb Hct MCV MCH MCHC RDW Plt Count MPV Immature Gran % (Auto) Neut % (Auto) Lymph % (Auto) [place] % (Auto) Eos % (Auto) Baso % (Auto) Lymph # (Auto) [place] # (Auto) Eos # (Auto) Baso # (Auto) Abs Immat Gran (auto) Absolute Neuts (auto) Absolute Nucleated RBC Band Neutrophils % Nucleated RBC % Platelet Estimate Polychromasia Hypochromasia Anisocytosis Microcytosis Ovalocytes Schistocytes Sodium 139 Potassium 3.8 Chloride 96 L Carbon Dioxide 33 H Anion Gap 10 BUN 82 H Creatinine 1.57 H Estim Creat Clear Calc 22 Estimated GFR 31 L Glucose 125 H Calcium 9.6 Magnesium Total Bilirubin AST ALT Alkaline Phosphatase Troponin I 0.030 NT-Pro-B Natriuret Pep 1180 H Total Protein Albumin TSH 1.770 Urine Color Yellow Urine Appearance Cloudy H Urine pH 5.5 Ur Specific [place] 1.014 Urine Protein Negative Urine Glucose (UA) Negative Urine Ketones Negative Ur Blood (Man) Negative Urine Nitrate Negative Urine Bilirubin Negative Urine Urobilinogen 0.2 Add Ur Microanalysis Reviewed Leukocyte Esterase Rfl 2+ H Urine RBC 0-2 Urine WBC 11-20 H Ur Squamous Epith Cells Many H Urine Bacteria None seen Urine Casts 11-20 01/11/25 04:42 WBC 13.0 H RBC 3.63 L Hgb 7.3 L Hct 26.8 L MCV 73.8 L MCH 20.1 L MCHC 27.2 L RDW 19.6 H Plt Count 426 H MPV 9.5 Immature Gran % (Auto) 1.1 H Neut % (Auto) 65.3 Lymph % (Auto) 18.7 [place] % (Auto) 12.4 H Eos % (Auto) 2.3 Baso % (Auto) 0.2 Lymph # (Auto) 2.43 [place] # (Auto) 1.6 H Eos # (Auto) 0.3 Baso # (Auto) 0.0 Abs Immat Gran (auto) 0.14 H Absolute Neuts (auto) 8.5 H Absolute Nucleated RBC 0.000 Band Neutrophils % Not Reportable Nucleated RBC % 0.0 Platelet Estimate Increased Polychromasia 1+ Hypochromasia 1+ Anisocytosis 1+ Microcytosis 1+ Ovalocytes 1+ Schistocytes None seen Sodium 138 Potassium 3.3 L Chloride 95 L Carbon Dioxide 31 H Anion Gap 12 BUN 76 H Creatinine 1.32 H Estim Creat Clear Calc 26 Estimated GFR 38 L Glucose 138 H Calcium 9.6 Magnesium 1.7 Total Bilirubin 0.6 AST 21 ALT 17 Alkaline Phosphatase 74 Troponin I NT-Pro-B Natriuret Pep Total Protein 7.0 Albumin 3.7 TSH Urine Color Urine Appearance Urine pH Ur Specific [place] Urine Protein Urine Glucose (UA) Urine Ketones Ur Blood (Man) Urine Nitrate Urine Bilirubin Urine Urobilinogen Add Ur Microanalysis Leukocyte Esterase Rfl Urine RBC Urine WBC Ur Squamous Epith Cells Urine Bacteria Urine Casts Quality VTE Prophylaxis VTE prophylaxis: pharmacologic ordered"
--- OUTSIDE RECORDS SUMMARY | 2025-01-10 07:59 | XMS_ITS | Encounter Summary ---
Author Organization [facility] Healthcare Address [address] [place] [address] Care Team Providers Care Dry Chain Puller Name Role Phone Hayden Oreilly MD Primary Care Provi erinn Pipo Richardson MD Unavailable [phone] Layne MauriceW Unavailable [phone] Reason for Visit * Reason Onset Date Comments Forms Request 01/06/2025 Encounter Details Date Type Department Care Team (Late st Contact Info) Description 01/06/2025 Telephone [facility] Medical Group Family Medicine [address] [place] [address] Hayden Oreilly MD [address] [place] [address] Forms Request Social History Tobacco [...] materials from doctor or pharmacy Always 12/31/2024 [facility] Utilities Answer Date Recorded In the [...] often do you attend chur ch or oriental orthodox services? Never 11/28/2024 Do you belong to any clubs o r organizations such as adventist groups, unions, fraternal or athletic groups, or [...] living in a jail (including now)? No 11/28/2024 Personal Safety Answer Date Recorded Have you ever been in or are you currently in a harmful physical or emotional relationship or is someone making you feel afraid or unsafe? 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 LEGAL COLLECTOR Gender Identity Not on file Sexual Orientation [...] track(2024 9:53 AM CDT) No Layne Maurice, SEWAGE DISPOSAL WORKER Note: Problem: Barriers to Home Accessibility Interventions: - Assess home accessibility barriers. - Identify equipment or modifications needed to address barrier(s). - Research available resources to improve home accessibility. - Refer to appropriate resources or alternate housing options. documented as of this encounter Visit Diagnoses Not on filedocumented in this encounter Care Teams Dry Chain Puller Relationship Specialty Start Date End Date Hayden Oreilly MD [address] [place] [address] PCP - General Family Medicine 01/31/19 Pipo Richardson MD [address] [place] [address] Surgeon Vascular Surgery 02/27/24 Layne Maurice, SEWAGE DISPOSAL WORKER [address] [place] [address] Technical Expert 11/22/24 documented as of this encounter
--- OUTSIDE RECORDS SUMMARY | 2025-01-10 07:59 | XMS_ITS | Encounter Summary ---
Author Organization [facility] Healthcare Address [address] [place] [address] Care Team Providers Care Chief Digital Media Officer Name Role Phone Hayden Oreilly MD Primary Care Provi erinn Pipo Richardson MD Unavailable [phone] Layne MauriceW Unavailable [phone] Reason for Visit * Reason Onset Date Comments Additional Services Or Orders 01/06/2025 Encounter Details Date Type Department Care Team (Late st Contact Info) Description 01/06/2025 Telephone [facility] Medical Group Family Medicine [address] [place] [address] Hayden Oreilly MD [address] [place] [address] Additional Services Or Orders Social [...] materials from doctor or pharmacy Always 12/31/2024 [facility] Utilities Answer Date Recorded In the [...] often do you attend chur ch or buddhist services? Never 11/28/2024 Do you belong to any clubs o r organizations such as jain groups, unions, fraternal or athletic groups, or [...] time in the past 12 m [facility], were you homeless or living in a prison (including now)? No 11/28/2024 Personal Safety Answer Date Recorded Have you ever been in or are you currently in a harmful physical or emotional relationship or is someone making you feel afraid or unsafe? 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 ORDNANCE EQUIPMENT WORKER Gender Identity Not on file Sexual Orientation Not on file documented as of this encounter Miscellaneous Notes * Telephone Encounter - Shoshana Harley MA - 01/07/2025 11:03 AM CDT Pt will have labs drawn at home prior to visit. Pt will also be seeing [facility]. * Telephone Encounter - Shoshana Harley MA - 01/07/2025 8:55 AM CDT [facility] for [place], please inquire about lab question? [...] track(2024 9:53 AM CDT) No Layne Maurice, FISH PROCESSOR Note: Problem: Barriers to Home Accessibility Interventions: - Assess home accessibility barriers. - Identify equipment or modifications needed to address barrier(s). - Research available resources to improve home accessibility. - Refer to appropriate resources or alternate housing options. documented as of this encounter Visit Diagnoses Not on filedocumented in this encounter Care Teams Chief Digital Media Officer Relationship Specialty Start Date End Date Hayden Oreilly MD [address] [facility] [address] [place] [address] PCP - General Family Medicine 01/31/19 Pipo Richardson MD [address] [place] [address] Surgeon Vascular Surgery 02/27/24 Layne Maurice, FISH PROCESSOR [address] [place] [address] Durable Medical Equipment Technician 11/22/24 documented as of this encounter
--- OUTSIDE RECORDS SUMMARY | 2025-01-10 07:59 | XMS_ITS | Clinical Summary ---
Author Organization [facility] [employer] [facility] [employer] Address [address] [place] [address] Care Team Providers Care Mold Yard Crane Operator Name Role Phone Hayden Oreilly MD Primary Care Provi erinn Source Comments [facility] [employer],non-owned Affiliates and Associated Physician Practices is amultiple site organization consisting of ambulatory clinics and hospital sitesin [place], [place], [place] and [place]. This disclosure is being madepursuant to the Care Everywhere program and may not contain all information available regarding this patient. Last updated 18.[facility] [employer] [facility] [employer] Allergies No known active allergies Medications * [...] Description 01/07/2025 10:40 AM CDT Office Visit [facility] - Cardiology [address] [place] [phone] Katie Quiles MD Atrial fibrillation, unspecified type (HCC) (Primary Dx) 01/07/2025 Travel 12/12/2024 1:10 AM CDT Clinical Support [facility] - Cardiology [address] [place] [phone] Cerebrovascular accident (CVA), unspecified mechanism (HCC) 11/07/2024 1:10 AM PROCESSING MGR Clinical Support [facility] - Cardiology [address] [place] [phone] Cerebrovascular accident (CVA), unspecified mechanism from Last [...] Recorded Patient Health Questionnaire-2 Score 0 04/14/2024 [facility] - Occupational Stress Questionnaire Answer Date [...] a care home (including now)? No 04/12/2024 Comments No Sex and Gender Information Value Date Recorded Sex Assigned at Not on file Legal Sex Female 6:52 PM PROCESSING MGR Gender Identity Not on file Sexual Orientation [...] Description 01/16/2025 1:10 AM CDT Clinical Support [facility] [address], [address] [phone] 02/20/2025 1:10 AM CDT Clinical Support [facility] - Cardiology [address], [address] [phone] 03/27/2025 1:10 AM CDT Clinical Support [facility] Cardiology [address], [address] [phone] 05/01/2025 1:10 AM CDT Clinical Support [facility] - Cardiology [address], [address] [phone] 06/05/2025 1:10 AM CDT Clinical Support [facility] - Cardiology [address], [address] [phone] 07/08/2025 11:20 AM PROCESSING MGR Office [facility] [address], [address] [phone] Katie Quiles MD [facility] [address] Health Maintenance Due Date Last Done Comments [...] this topic Medical Devices Implanted Type Area Dry Boss Device Identifier Shelf Expiration Date Model / Serial / Lot Rcdr Crd Linq Ii Ins - [id number] Implanted:Qty: 1 on 04/15/2024 by Katie Quiles MD at [facility] [employer] [id number] 08/22/2025 LNQ22 / [id number] / [id number] Procedures Procedure Name Priority Date/Time Associated Diagnosis Comments [place] DEVICE INTERROGAT REMOTE Routine 12/21/2024 5:19 PM CDT Cerebrovascular accident (CVA), unspecified mechanism (HCC) CARDIAC PROCEDURE ORDER 12/09/2024 CARDIAC PROCEDURE ORDER 12/02/2024 [place] DEVICE INTERROG[place] REMOTE Routine 11/17/2024 2:44 PM CDT Cerebrovascular accident (CVA), unspecified mechanism CARDIAC PROCEDURE ORDER 11/04/2024 from Last 3 Months Results * [place] DEVICE INTERROGAT REMOTE (12/21/2024 5:19 PM [...] CARDIAC SERVICES ORDERABLES Fin al Result * [place] DEVICE INTERROGAT REMOTE (11/17/2024 2:44 PM CDT) Narrative Herman Baliey MD - 11/17/2024 2:44 PM CDT Herman [...] have any further questions. Sincerely, Herman Bailey 11/17/2024 Herman Bailey MD PROCEDURE/MINOR SURGICAL ORDERAB LES Final Result from Last 3 Months Insurance MEDICARE Advance Directives * Full Code (Latest Code Status on File) Date Activated Date Inactivated Comments 04/12/2024 4:25 PM 04/15/2024 7:23 PM Care Teams Mold Yard Crane Operator Relationship Specialty Start Date End Date Hayden Oreilly MD [address] [address] PCP - General Family Medicine 08/17/21
--- OUTSIDE RECORDS SUMMARY | 2025-01-10 07:59 | XMS_ITS | Referral Summary ---
Author Organization [facility] [address] Address [address] [facility] [place] [address] Care Team Providers Care Nuclear Test Technician Name Role Phone Hayden Oreilly MD Primary Care Provi erinn Pipo Richardson MD Unavailable [phone] Layne MauriceW Unavailable [phone] Encounters Date Type Department Care Team Description 01/09/2025 12:30 PM CDT Home Care Visit [address] [address] [address] [place] [address] Yumiko Guevara LPN SN HOME VISIT 01/09/2025 10:00 AM CDT Home Care Visit [address] [place] [address] Surya Ibrahim, PT PT HOME VISIT 01/08/2025 Results Follow-Up [facility] Medical [facility] Pulmonology [address] [facility] [place] [phone] Nasreen Watson MD 01/07/2025 12:30 PM CDT Home Care Visit [address] [place] [address] Heather Lowery, OT OT INITIAL EVALUATION 01/06/2025 Results Follow-Up [facility] Medical Group Family Medicine [address] [place] [phone] Maryellen De Souza NP 01/06/2025 Telephone [facility] [address] [facility] [address] [place] [phone] Hayden Oreilly MD Additional Services Or Orders 01/06/2025 Telephone [facility] [address] [phone] Hayden Oreilly MD Forms Request 01/06/2025 Home Care Visit [address] [place] [address] Surya Ibrahim, PT CASE COMMUNICATION 01/06/2025 Home Care Visit [address] [place] [address] Surya Ibrahim, PT CASE COMMUNICATION 01/06/2025 Telephone [facility] [address] [address] Hayden Oreilly MD Additional Services Or Orders 01/03/2025 10:00 AM CDT Home Care Visit [address] [place] [address] Surya Ibrahim, PT PT INITIAL EVALUATION 01/02/2025 3:42 PM CDT - 01/02/2025 11:59 PM CDT Hospital Encounter [facility] Diagnostic Imaging [address] [place] [address] Chronic obstructive pulmonary disease, unspecified COPD type (HCC) Discharge Disposition: Discharge to home or self care 01/02/2025 2:15 PM CDT Office Visit [facility] Pulmonology [address] [phone] Nasreen Watson MD Shortness of breath (Primary Dx); Chronic obstructive pulmonary disease, unspecified COPD type (HCC) 01/02/2025 2:54 PM CDT - 01/02/2025 11:59 PM CDT Hospital Encounter [facility] Cardiac Testing [address] [place] [address] Bilateral leg edema; SOB (shortness of breath) on exertion Discharge Disposition: Discharge to home or self care 12/31/2024 Plan of Care Documentation [address] [place] [address] 12/31/2024 2:00 PM CDT Home Care Visit [address] [place] [address] Dali Juarez, MARK SN OASIS START OF CARE 12/26/2024 Telephone [facility] Home Care Services [address] [place] [address] Dora Wren RN 12/26/2024 Travel 12/26/2024 Telephone [facility] Medicine [address] [phone] Hayden Oreilly MD Medical Question/Miscellaneou s 12/26/2024 4:00 PM CDT Office Visit [facility] Family Medicine [address] [facility] [address] [place] [address] Maryellen De Souza NP Chronic obstructive pulmonary disease, unspecified COPD type (HCC) (Primary Dx); Bilateral leg edema; SOB (shortness of breath) on exertion; Constipation, unspecified constipation type 12/24/2024 Telephone [facility] Family Medicine [address] [facility] [address] [place] [address] Hayden Oreilly MD Med Refill 12/24/2024 Orders Only [facility] Accountable Care Organization [address] [place] [address] Amrik Syed MD 12/24/2024 Telephone [facility] Family Medicine [address] [facility] [address] [place] [address] Hayden Oreilly MD Successful Phone Call 12/24/2024 Documentation [facility] Vascular and Vein Surgery [address] [facility] [address] [place] [address] Iwona Rajan MA 12/23/2024 Telephone [facility] Family Medicine [address] [facility] [address] [place] [address] Hayden Oreilly MD LAVELL Questions 12/19/2024 Orders Only [facility] Surgery [address] [place] [address] Orville Menard MD Right kidney mass (Primary Dx); Kidney lesion 12/19/2024 Telephone [facility] Surgery [address] [place] [phone] Jaqui Moreno RMA 12/07/2024 Home Care Visit [address] [place] [address] Surya Ibrahim, PT PT OASIS TRANSFER W/DC 12/06/2024 Results Follow-Up [facility] Family Medicine [address] [facility] [address] [place] [address] Maryellen De Souza NP 12/06/2024 Telephone [facility] [address] [facility] [address] [place] [address] Maryellen De Souza NP patient assistance 12/05/2024 3:05 PM CDT Ancillary Procedure [facility] Diagnostic Imaging [address] [facility], [address] [address] 12/05/2024 3:00 PM CDT Lab [facility] Lab [address] [facility], [facility] [address] [place] [address] Bilateral leg edema 12/05/2024 Orders Only [facility] Family Medicine [address] [facility] [address] [place] [address] Maryellen De Souza NP Chronic obstructive pulmonary disease with acute exacerbation (HCC) 12/05/2024 Home Care Visit [address] [place] [address] Surya Ibrahim, PT CASE COMMUNICATION 12/05/2024 9:00 AM CDT Home Care Visit [address] [place] [address] Dali Juarez, MARK SN INITIAL EVALUATION 12/05/2024 2:15 PM CDT Office Visit [facility] Family Medicine [address] [facility] [address] [place] [address] Maryellen De Souza NP Chronic obstructive pulmonary disease with acute exacerbation (HCC) (Primary Dx); Generalized weakness; Bilateral leg edema; Tremor of both hands; Essential hypertension 12/04/2024 11:30 AM CDT Home Care Visit [address] [place] [address] Surya Ibrahim, PT PT HOME VISIT 12/04/2024 Home Care Visit [address] [address] [place] [address] Surya Ibrahim, PT TELEPHONE ENCOUNTER 12/04/2024 9:30 AM CDT Office Visit [facility] Vascular and Vein Surgery [address] [place] [address] [address] [place] [address] Pipo Richardson MD Atherosclerosis of eek artery of both lower extremities with intermittent claudication (Primary Dx); Bilateral carotid artery stenosis 12/03/2024 Home Care Visit [address] [place] [address] Heather Lowery, OT CASE COMMUNICATION 12/03/2024 Home Care Visit [address] [place] [address] Surya Ibrahim, PT CARE CONFERENCE 12/03/2024 10:30 AM CDT Home Care Visit [address] [place] [address] Heather Lowery, OT OT INITIAL EVALUATION 12/02/2024 Home Care Visit [address] [place] [address] Surya Ibrahim, PT TELEPHONE ENCOUNTER 12/02/2024 Telephone [facility] [address] [facility] [address] [place] [phone] Hayden Oreilly MD Additional Services Or Orders 11/29/2024 Home Care Visit [address] [place] [address] Alison Hernandez, RN NURSE MED [facility] 11/29/2024 8:36 AM CDT - 11/29/2024 11:59 PM CDT Hospital Encounter [facility] Cardiac Testing [address] [place] [address] Subclavian artery stenosis, left Discharge Disposition: Discharge to home or self care 11/29/2024 8:36 AM CDT - 11/29/2024 11:59 PM CDT Hospital Encounter [facility] Cardiac Testing [address] [place] [address] Stenosis of right carotid artery; Occlusion of left carotid artery Discharge Disposition: Discharge to home or self care 11/28/2024 Plan of Care Documentation [address] [place] [address] 11/28/2024 Home Care Visit [address] [place] [address] Surya Ibrahim, PT CASE COMMUNICATION 11/28/2024 10:00 AM CDT Home Care Visit [address] [place] [address] Surya Ibrahim, PT PT OASIS START OF CARE 11/26/2024 Telephone [facility] Home Care Services [address] [place] [address] Dora Wren RN 11/26/2024 Travel 11/22/2024 Telephone [facility] [address] [facility] [address] [place] [phone] Hayden Oreilly MD Successful Phone Call 11/22/2024 ACO Outreach [facility] Accountable Care Organization [address] [place] [address] Dora Hua RN 11/22/2024 11:00 AM CDT Office Visit [facility] Family Medicine [address] [facility] [address] [place] [address] Maryellen De Souza NP Chronic obstructive pulmonary disease with acute exacerbation (HCC) (Primary Dx); Essential hypertension; Generalized weakness; Tremor of both hands; Bilateral leg edema; Anxiety 11/17/2024 Orders Only [facility] Health Information Management [address] [place] [address] Scanning, Provider 11/15/2024 Orders Only [facility] Vascular and Vein Surgery [address] [place] [phone] Pipo Richardson MD Aftercare following surgery of the circulatory system (Primary Dx); Stenosis of right carotid artery; Occlusion of left carotid artery; Subclavian artery stenosis, left 11/14/2024 3:00 PM CDT Office Visit [facility] Vascular and Vein Surgery [address] [place] [phone] Tabitha Ortez NP Atherosclerosis of eek artery of both lower extremities with intermittent claudication (Primary Dx); Carotid artery calcification, unspecified laterality; Bilateral carotid artery stenosis; Numbness and tingling of left upper extremity 11/14/2024 1:43 PM CDT - 11/14/2024 11:59 PM CDT Hospital Encounter [facility] Medical Office Building [address] [place] [address] Aftercare following surgery of the circulatory system Discharge Disposition: Discharge to home or self care 11/14/2024 1:44 PM CDT - 11/14/2024 11:59 PM CDT Hospital Encounter [facility] Medical Office Building [address] [place] [address] Aftercare following surgery of the circulatory system Discharge Disposition: Discharge to home or self care 11/08/2024 10:45 AM EXECUTIVE TEAM LEADER Office Visit [facility] Medicine [address] [facility] [address] [place] [address] Maryellen De Souza NP Chronic obstructive pulmonary disease with acute exacerbation (HCC) (Primary Dx); Pneumonia due to infectious organism, unspecified laterality, unspecified part of lung 10/26/2024 Nurse Triage [facility] [address] [facility] [address] [place] [address] Hayden Oreilly MD 10/25/2024 Orders Only [address] [address] Cony Caba NP 10/25/2024 Nurse Triage [facility] [address] [facility] [address] [place] [phone] Hayden Oreilly MD 10/25/2024 Telephone [facility] [address] [facility] [address] [place] [address] Hayden Oreilly MD LAVELL Questions 10/18/2024 Telephone [facility] [address] [facility] [address] [place] [address] Hayden Oreilly MD Medication Request 10/18/2024 Telephone [facility] [address] [facility] [address] [place] [address] Hayden Oreilly MD Medical Question/Miscellaneou s 10/16/2024 3:15 PM EXECUTIVE TEAM LEADER Office Visit [facility] [address] [place] [phone] Tamar Carpio PA Shortness of breath (Primary Dx); Cough, unspecified type 10/16/2024 Nurse Triage [facility] [address] [facility] [address] [place] [address] Hayden Oreilly MD 2024 Telephone [facility] [address] [address] Hayden Oreilly MD Forms Request 10/14/2024 Telephone [facility] Medical Group Family Medicine [address] [address] Hayden Oreilly MD Medical Question/Miscellaneou s from Last 3 Months Allergies No known active allergies Medications nebulizers [facility] 1 Units every 6 (six) hours 1 [...] 10/16/2024 Assessment & Plan (10/16/2024 3:17 PM EXECUTIVE TEAM LEADER): O2 saturation between 92-94% at rest Recommended ER evaluation, patient declined Will treat for possible COPD exacerbation again with prednisone Albuterol as needed Already recently treated with prednisone, z pack Please see your PCP or carrot harvester in the future for recurrent COPD exacerbations Cough 10/16/2024 Assessment & Plan (10/16/2024 3:16 PM EXECUTIVE TEAM LEADER): Mucinex as expectorant Albuterol nebulizer Prednisone Likely d/t COPD exacerbation Bronchitis 09/23/2024 Assessment & Plan (09/23/2024 11:51 AM EXECUTIVE TEAM LEADER): Covid and flu test negative Wheezing throughout [...] 09/23/2024 Assessment & Plan (09/23/2024 12:04 PM EXECUTIVE TEAM LEADER): Rapid strep positive Initiate Zithromax as this [...] brachial pulses with equal and good hand customer advocate to bilateral upper extremities. Plan: Symptoms are [...] (chronic obstructive pulmonary disease) 05/2024 Atherosclerosis of eek ar mian of both lower extremities with [...] materials from doctor or pharmacy Always 12/31/2024 [facility] Utilities Answer Date Recorded In the past 12 months has e [employer], gas, oil, or water [employer] threatened to shut off services in your [...] often do you attend chur ch or taoism services? Never 11/28/2024 Do you belong to any clubs o r organizations such as cheondoism groups, unions, fraternal or athletic groups, or [...] in the past 12 m [facility], were you homeless or living in a correction (including now)? No 11/28/2024 Personal Safety Answer Date Recorded Have you ever been in or are you currently in a harmful physical or emotional relationship or is someone making you feel afraid or unsafe? 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 EXECUTIVE TEAM LEADER Gender Identity Not on file Sexual Orientation [...] On track(2024 9:53 AM CDT) Layne Gordon, COOKING APPLIANCE REPAIR TECHNICIAN Note: Problem: Barriers to Home Accessibility Interventions: - Assess home accessibility barriers. - Identify equipment or modifications needed to address barrier(s). - Research available resources to improve home accessibility. - Refer to appropriate resources or alternate housing options. Medical Devices Implanted Type Area Cutting Machine Tender Device Identifier Shelf Expiration Date Model / Serial / Lot [employer] Peripheral Vascular Lifestream 8mm 37mm 80cm Balloon Expandable Low Profile Cover [id number] - [id number] Implanted:Qty: 1 on 02/27/2024 by Pipo Richardson MD at [facility] [employer] 10/04/2024 [id number] / / [id number] [employer] Per[employer] Lifestream 8mm 37mm 80cm Balloon Expandable Low Profile Cover [id number] - [id number] Implanted:Qty: 1 on 02/27/2024 by Pipo Richardson MD at [facility] [employer] 09/03/2025 [id number] / / [id number] [employer] V[employer] System Closure Repair Femoral Artery Suture Mediated Perclose Prostyle 33863-50 - [id number] Implanted:Qty: 1 on 02/27/2024 by Pipo Richardson MD at [facility] [employer] 11/01/2025 [id number] / / [id number] [employer] V[employer] System Closure Repair Femoral Artery Suture Mediated Perclose Prostyle 60819-58 - [id number] Implanted:Qty: 1 on 02/27/2024 by Pipo Richardson MD at [facility] [employer] 11/01/2025 [id number] / / [id number] Procedures Procedure Name Priority Date/Time Associated Diagnosis Comments XR CHEST PA LATERAL 2 VIEWS [id number]|2025-01-15 12:20:10|2025-01-15 12:20:10|[id number]||||"Assessment and Plan Assessment and plan (1) Ventricular tachyarrhythmia: Code(s): I47.20 - Ventricular tachycardia, unspecified Status: Acute (2) Essential hypertension: Code(s): I10 - Essential (primary) hypertension Status: Chronic (3) Vertigo: Code(s): R42 - Dizziness and giddiness Status: Acute (4) Benign positional vertigo: Code(s): H81.10 - Benign paroxysmal vertigo, unspecified ear Status: Acute Plan 1. dizziness likely benign paroxysmal vertigo with negative CT scan of the head except the chronic small-vessel ischemic changes and lacunar infarct bilateral periventricular white matter and again on the basis of small-vessel disease. Considering the persistence of the symptomatology CTA can be obtained patient has already been seen by the Cardiology with the possibility of ventricular tachyarrhythmia also is already receiving the anticoagulation therapy. She needs to follow instruction about getting out of the bed, about keeping the eye closed when she has a cute episode to avoid the vertigo and staying in bed, she is receiving multiple medication that can complicate the situation but as far as a TIA is concerned she is on clopidogrel 75mg daily. Other medical problems a being taken care of. MRI will be of not significant help but can be obtained if he continues to have the dizziness. Consult date: 01/15/25 HPI: Ghazal Valadez is a 84 year old female, Admitted to the hospital through the emergency room for the complaints of dizziness of 48hours duration, described as everything moving around in addition to the history of right earache and cough of 2 months duration, reportedly she was started on diuretic by her family physician and patient was also seen about 3 days ago by the hardboard panel printer with the prescription for the new medications, her medications particularly included aspirin 81mg daily, atorvastatin 40mg daily, clopidogrel 75mg daily, levothyroxine 125mcg daily, valsartan 160mg daily, and meclizine on p.r.n. 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 she has history of common carotid artery stenosis documented in April of 2024, she has undergone peripheral arterial vascularization of both lower extremities with stenting in April of 2024, and she has history of loop recorder in the past, she is a former smoker former alcohol intake, she had a CT scan of the head on 01/10 with no acute intracranial process, her recent echocardiogram documents severely enlarged left atrial chamber, moderate to severe aortic valve stenosis with mild aortic valve regurgitation severely calcified mitral valve annulus with stenosis and mild regurgitation, has been seen by the hardboard panel printer and stress test is being recommend as an outpatient with replacing electrolytes while in the hospital particularly the potassium. Review of Systems Review of Systems: All systems reviewed & are unremarkable except as noted in HPI and below PMFSH Past Medical History Medical History Occult blood in stools Vertigo Chronic anemia Anxiety Common carotid artery stenosis (~04/2024) 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 CVA (cerebral vascular accident) (04/2024) Osteoporosis Essential hypertension GERD (gastroesophageal reflux disease) Hypothyroidism Emphysema/COPD Surgical History Surgical History Peripheral arterial disease with history of revascularization (~04/2024) Bilateral lower extremity stents Status post cataract extraction of both eyes with insertion of intraocular lens Status post open reduction with internal fixation of fracture Left patellar fracture History of loop recorder Status post urethral diverticulectomy History of appendectomy History of tonsillectomy and adenoidectomy History of bladder suspension procedure Family History Family History Sibling Asthma Father Diabetes mellitus Hypertension Social History Social History Social History: The patient been since 2023. She is a former smoker she smoked 2.5 packs of cigarettes per day but quit in 1993. She used to drink 3-4 alcoholic beverages a week in still will occasionally drink alcohol in moderation. She raised 5 children. 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 She still drives. She ambulates with a cane. Code status: Full code Surrogate decision maker: Meera Schultz (daughter) Smoking status: Former smoker Alcohol intake: former Substance use: never Do You Feel Safe in your Home?: Yes Lack of Transportation: No Lack of Food: Never True Current Housing: I Have Housing Concerned About Future Housing: No Difficulty Paying Gas/Electric Bills: No Difficulty Paying for Meds: No Currently Unemployed: No Education: High School Diploma/GED Difficulty w/ Childcare or Family Care: No Spiritual care concerns: No Meds Home Medications and Allergies Home Medications Medication Instructions Recorded Confirmed Type albuterol sulfate 2.5 mg/3 mL 2.5 mg inhalation Q4-6H PRN 10/26/24 01/10/25 History (0.083 %) solution for nebulization shortness of breath or wheezing albuterol sulfate 90 mcg/actuation 2 puff inhalation Q4-6H PRN 10/26/24 01/10/25 History aerosol inhaler shortness of breath or wheezing alendronate 70 mg tablet 70 mg PO WEEKLY 10/26/24 01/10/25 History aspirin 81 mg chewable tablet 81 mg PO DAILY 10/26/24 01/10/25 History atorvastatin 40 mg tablet 40 mg PO QPM 10/26/24 01/10/25 History benzonatate 100 mg capsule 100 mg PO TID PRN cough 10/26/24 01/10/25 History clopidogrel 75 mg tablet 75 mg PO DAILY 10/26/24 01/10/25 History levothyroxine 125 mcg tablet 125 mcg PO DAILY 10/26/24 01/10/25 History meclizine 25 mg tablet 25 mg PO QID PRN dizziness 10/26/24 01/10/25 History pantoprazole 40 mg tablet,delayed 40 mg PO DAILY 10/26/24 01/10/25 History release valsartan 160 1 tablet PO DAILY 10/26/24 01/10/25 History mg-hydrochlorothiazide 25 mg tablet alprazolam 0.25 mg tablet 0.25 mg PO TID PRN Anxiety #10 tabs 11/05/24 01/10/25 Rx citalopram 10 mg tablet (Celexa) 10 mg PO QAM #30 tabs 11/05/24 01/10/25 Rx acetaminophen 325 mg tablet 325 mg PO Q6H PRN pain 01/10/25 01/10/25 History (Tylenol) apixaban 5 mg tablet (Eliquis) 5 mg PO BID 01/10/25 01/10/25 History cholecalciferol (vitamin D3) 50 2,000 unit PO DAILY 01/10/25 01/10/25 History mcg (2,000 unit) capsule docusate sodium 100 mg capsule 100 mg PO DAILY 01/10/25 01/10/25 History fluticasone fur. 100 mcg-umeclid 1 inh inhalation DAILY 01/10/25 01/10/25 History 62.5 mcg-vilant 25 mcg inhalat.powder (Trelegy Ellipta) furosemide 40 mg tablet 40 mg PO DAILY 01/10/25 01/10/25 History ipratropium 0.5 mg-albuterol 3 mg 3 ml inhalation QID PRN shortness 01/10/25 01/10/25 History (2.5 mg base)/3 mL nebulization of breath or wheezing soln meloxicam 15 mg tablet 15 mg PO DAILY 01/10/25 01/10/25 History metolazone 2.5 mg tablet 2.5 mg PO .Q48HR 01/10/25 01/10/25 History polyethylene glycol 3350 17 gram 17 g PO DAILY PRN constipation 01/10/25 01/10/25 History oral powder packet (Powderlax) Allergies Allergy/AdvReac Type Severity Reaction Status Date / Time levofloxacin AdvReac Abdominal Verified 01/10/25 05:32 Pain Vital Signs Vital Signs - 24 hr 01/14/25 14:00 01/14/25 16:00 01/14/25 20:00 Temperature 36.9 C Pulse Rate 80 91 81 Respiratory Rate 18 18 Blood Pressure 162/79 H Pulse Oximetry 97 91 Oxygen Delivery Room Air Fraction of Inspired Oxygen 21 01/14/25 20:00 01/14/25 20:26 01/14/25 20:28 Temperature Pulse Rate 90 84 84 Respiratory Rate 20 20 Blood Pressure Pulse Oximetry 96 Oxygen Delivery Room Air Fraction of Inspired Oxygen 21 01/14/25 20:36 01/14/25 22:00 01/15/25 00:00 Temperature 36.8 C Pulse Rate 90 81 103 H Respiratory Rate 20 18 Blood Pressure 110/51 L Pulse Oximetry 91 Oxygen Delivery Fraction of Inspired Oxygen 01/15/25 01:49 01/15/25 02:04 01/15/25 04:00 Temperature Pulse Rate 88 90 92 Respiratory Rate 20 20 Blood Pressure Pulse Oximetry Oxygen Delivery Fraction of Inspired Oxygen 01/15/25 06:00 01/15/25 07:52 01/15/25 07:52 Temperature 36.6 C Pulse Rate 97 96 Respiratory Rate 18 20 Blood Pressure 119/49 L Pulse Oximetry 93 97 Oxygen Delivery Room Air Fraction of Inspired Oxygen 01/15/25 08:00 01/15/25 08:01 Temperature Pulse Rate 97 Respiratory Rate 20 Blood Pressure Pulse Oximetry Oxygen Delivery Room Air Fraction of Inspired Oxygen Exam Narrative: revealed her to be awake alert cooperative in no obvious acute distress, head normocephalic with no cranial bruit, ear nose throat examination normal, neck supple with no cervical bruit no thyromegaly no lymphadenopathy, heart regular with murmur, lungs clear with no rhonchi or crepitations, abdomen soft flabby nontender with normal bowel sounds, neurologically she is awake alert able to follow the verbal commands appropriately, his speech is not dysphasic not dysarthric not dysphonic, pupils round regular feels the vision full to the threat stimuli, with no nystagmus, extraocular movements full, facial sensation intact face symmetrical tongue in the oral cavity with no fasciculation motor examination revealed her to have decreased strength in upper and lower extremities with very sluggish reflexes and downgoing plantar responses she was unable to get out of the bed , there was no ataxia or dysmetria on [id number]-[id number]-to-finger though Results Labs 05/14/25 04:29 01/15/25 04:29 Labs: Short CBC 01/15/25 Range/Units 04:29 WBC 13.5 H (4.5-10.0) K/mm3 Hgb 7.9 L (12.0-15.0) g/dL Hct 28.9 L (37.0-47.0) % Plt Count 326 (150-375) k/mm3 BMP 01/15/25 04:29 Sodium 137 Potassium 4.1 Chloride 103 Carbon Dioxide 26 BUN 39 H Creatinine 1.45 H Glucose 123 H Calcium 8.9"
--- OUTSIDE RECORDS SUMMARY | 2025-01-10 07:59 | XMS_ITS | CONTINUITY OF CARE DOCUMENT ---
Author Name henrietta shrestha Address Unknown Organization [facility] Address [address] [place] [address] Phone [phone] Care Team Providers Care Tower Erector Name Role Phone Farshad JOE, Nannette Unavailable Nannette Yen MD Unavailable [phone] INSURANCE PROVIDERS Payer name Policy type / Coverage type Olean red green party ID [employer] Other [id number]
--- OUTSIDE RECORDS SUMMARY | 2025-01-10 07:59 | XMS_ITS | Encounter Summary ---
Author Organization [facility] Healthcare Address [address] [place] [address] Care Team Providers Care Neon Installer Name Role Phone Hayden Oreilly MD Primary Care Provi erinn Pipo Richardson MD Unavailable [phone] Layne MauriceW Unavailable [phone] Reason for Visit * Reason Onset Date Comments Medical Question/Miscellaneous 12/26/2024 Encounter Details Date Type Department Care Team (Late st Contact Info) Description 12/26/2024 Telephone [facility] Medical Group Family Medicine [address] [place] [address] Hayden Oreilly MD [address] [place] [address] Medical Question/Miscellaneou s Social History [...] materials from doctor or pharmacy Never 11/28/2024 [facility] Utilities Answer Date Recorded In the [...] often do you attend chur ch or samaritan services? Never 11/28/2024 Do you belong to any clubs o r organizations such as samaritan groups, unions, fraternal or athletic groups, or [...] any time in the past 12 m [facility], were you homeless or living in a senior care (including now)? No 11/28/2024 Personal Safety Answer Date Recorded Have you ever been in or are you currently in a harmful physical or emotional relationship or is someone making you feel afraid or unsafe? 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 CRUSHER SETTER Gender Identity Not on file Sexual [...] CDT Medical Question/Miscellaneous Callerâ€™s Concern: Yanet with [facility] Home Health asking for Dr. Oreilly to [...] on filedocumented in this encounter Care Teams Neon Installer Relationship Specialty Start Date End Date Hayden Oreilly MD [address] [facility] [address] [place] [address] PCP - General Family Medicine 01/31/19 Pipo Richardson MD [address] [place] [address] Surgeon Vascular Surgery 02/27/24 Layne Maurice, ROSARIO [address] [place] [address] [address] [place] [address] Manager College 11/22/24 documented as of this encounter
--- OUTSIDE RECORDS SUMMARY | 2025-01-10 07:59 | XMS_ITS | Encounter Summary ---
Author Organization [facility] Healthcare Address [address] [place] [address] Care Team Providers Care Parent Partner Name Role Phone Hayden Oreilly MD Primary Care Provi erinn Pipo Richardson MD Unavailable Layne MauriceW Unavailable [phone] Encounter Details Date Type Department Care Team (Late st Contact Info) Description 01/08/2025 Results Follow-Up [facility] Medical Group Pulmonology [address] [place] [id number] Nasreen Watson MD [address] [place] [address] [address] [place] [address] Social History Tobacco Use Types [...] materials from doctor or pharmacy Always 12/31/2024 [facility] Utilities Answer Date Recorded In the past [...] often do you attend chur ch or muslim services? Never 11/28/2024 Do you belong to any clubs o r organizations such as alevism groups, unions, fraternal or athletic groups, or [...] on file Legal Sex Female 1:28 AM YARD CLERK Gender Identity Not on file Sexual Orientation Not on file documented as of this encounter Plan of Treatment Not on file documented as of this encounter Goals Goal Patient Goal Type Associated Problems Recent Progress Patient-Stated? Author ACO SW Goal - Patient will be able to safely move about their home ACO Care Management On track(2024 9:53 AM CDT) No Layne Maurice, HOUSING COURT JUDGE Note: Problem: Barriers to Home Accessibility Interventions: - Assess home accessibility barriers. - Identify equipment or modifications needed to address barrier(s). - Research available resources to improve home accessibility. - Refer to appropriate resources or alternate housing options. documented as of this encounter Visit Diagnoses Not on filedocumented in this encounter Care Teams Parent Partner Relationship Specialty Start Date End Date Hayden Oreilly MD [address] [facility] [address] [place] [address] PCP - General Family Medicine 01/31/19 Pipo Richardson MD [address] [place] [address] Surgeon Vascular Surgery 02/27/24 Layne Maurice, HOUSING COURT JUDGE [address] [place] [address] Shake Packer 11/22/24 documented as of this encounter
--- OUTSIDE RECORDS SUMMARY | 2025-01-10 07:59 | XMS_ITS | Encounter Summary ---
Author Organization [facility] Healthcare Address [address] [place] [address] Care Team Providers Care Audio Installer Name Role Phone Hayden Oreilly MD Primary Care Provi erinn Pipo Richardson MD Unavailable [phone] Layne MauriceW Unavailable [phone] Encounter Details Date Type Department Care Team (Late st Contact Info) Description 12/06/2024 Results Follow-Up [facility] Medical Group Family Medicine [address] [place] [address] Maryellen De Souza NP [address] [place] [address] Social History Tobacco Use Types [...] materials from doctor or pharmacy Never 11/28/2024 [facility] Utilities Answer Date Recorded In the past [...] often do you attend chur ch or mandaen services? Never 11/28/2024 Do you belong to any clubs o r organizations such as uatsdin groups, unions, fraternal or athletic groups, or [...] were you homeless or living in a longterm (including now)? No 11/28/2024 Personal Safety Answer Date Recorded Have you ever been in or are you currently in a harmful physical or emotional relationship or is someone making you feel afraid or unsafe? 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 Author ACO SW Goal - Patient will be able to safely move about their home ACO Care Management On track(2024 9:53 AM CDT) No Layne Maurice, SOCIAL MEDIA SPECIALIST Note: Problem: Barriers to Home Accessibility Interventions: - Assess home accessibility barriers. - Identify equipment or modifications needed to address barrier(s). - Research available resources to improve home accessibility. - Refer to appropriate resources or alternate housing options. documented as of this encounter Visit Diagnoses Not on filedocumented in this encounter Care Teams Audio Installer Relationship Specialty Start Date End Date Hayden Oreilly MD [address] [facility] [address] [place] [address] PCP - General Family Medicine 01/31/19 Pipo Richardson MD [address] [place] [address] Surgeon Vascular Surgery 02/27/24 Layne Maurice, SOCIAL MEDIA SPECIALIST [address] [place] [address] Machinery Repair Maintenance Supervisor 11/22/24 documented as of this encounter
--- OUTSIDE RECORDS SUMMARY | 2025-01-10 07:59 | XMS_ITS | Encounter Summary ---
Author Organization [facility] Healthcare Address [address] [place] [address] Care Team Providers Care Cross Cut Saw Operator Name Role Phone Hayden Oreilly MD Primary Care Provi erinn Pipo Richardson MD Unavailable [phone] Layne MauriceW Unavailable Reason for Visit * Auth/Cert (Routine) Specialty Diagnoses / Procedures Referred By Contac t Referred To Contact Referral ID Status Reason Start Date Expiration Date Visits Re quested Visits Authorized [id number] 1 8 Encounter Details Date Type Department Care Team (Late st Contact Info) Description 01/09/2025 12:30 PM CDT Home Care Visit [facility] [address] [address] [address] [place] [address] Yumiko Guevara LPN SN HOME VISIT Social [...] materials from doctor or pharmacy Always 12/31/2024 [facility] Utilities Answer Date Recorded In the past [...] any clubs o r organizations such as orthodox groups, unions, fraternal or athletic groups, [...] were you homeless or living in a retirement (including now)? No 11/28/2024 Personal Safety Answer Date Recorded Have you ever been in or are you currently in a harmful physical or emotional relationship or is someone making you feel afraid or unsafe? 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 ELECTRONICS PROCESSOR Gender Identity Not on file Sexual Orientation [...] On track(2024 9:53 AM CDT) Layne Gordon, TREATMENT MANAGER Note: Problem: Barriers to Home Accessibility Interventions: [...] Details Visit Type -SN Home Visit Discipline -Fdc Problems Problem Description Start Date Status Goals Interve ntions Pressure Prevention Disciplines: Skilled Disciplines Pressure Prevention 12/31/2024 Active 1 goal linked to scheduled/docume nted intervention 1 goal intervention scheduled/documen antione in this visit Medications Disciplines: Fdc Management of home medications 12/31/2024 Active 1 goal linked to scheduled/docume nted intervention 1 goal intervention scheduled/documen antione in this visit Monitor patient's vital signs every home health visit Disciplines: Skilled Disciplines, SN, PT, OT, AUTOMOTIVE GLAZIER, AUTOMATIC BEADING LATHE OPERATOR Monitor patient's vital signs every home health [...] scheduled/docume nted intervention 1 goal intervention scheduled/documen antinoe in this visit Knowledge deficit Disciplines: Fdc Lack of knowledge or resources to effectively manage disease process 12/31/2024 Active 1 goal linked to scheduled/docume nted intervention 3 goal interventions scheduled/documen antione in this visit Problems with Activity - COPD Disciplines: Fdc Decreased tolerance to normal activities related to dyspnea and fatigue 12/31/2024 Active 1 goal linked to scheduled/docume nted intervention 2 goal interventions scheduled/documen antione in this visit Breathing Problems - COPD Disciplines: Fdc Ineffective breathing pattern related to respiratory disease 12/31/2024 Active 1 goal linked to scheduled/docume nted intervention 2 goal interventions scheduled/docbel talbot in this visit Apprehension/Ner vousness - COPD Disciplines: Fdc Lack of knowledge regarding how to cope with feelings of anxiety and apprehension 12/31/2024 Active 1 goal linked to scheduled/docume nted intervention 3 goal interventions scheduled/gita talbot in this visit Goals Goal Associated Problem Outcome Goal Met? Visit Notes Prevent development of pressure injuries Description: exterminator termite goal: The patient will maintain intact skin [...] visit during episode of care Description: Home tutoring clinician to measure vital signs during every home [...] Scheduled documented in this encounter Care Teams Cross Cut Saw Operator Relationship Specialty Start Date End Date Hayden Oreilly MD [address] [facility] [facility] [address] [place] [address] PCP - General Family Medicine 01/31/19 Pipo Richardson MD [address] [place] [address] Surgeon Vascular Surgery 02/27/24 Layne Maurice, TREATMENT MANAGER [address] [place] [address] Construction Carpenters Helper 11/22/24 documented as of this encounter
--- OUTSIDE RECORDS SUMMARY | 2025-01-10 07:59 | XMS_ITS | Encounter Summary ---
Author Organization [facility] Healthcare Address [address] [place] [address] Care Team Providers Care Desulfurizer Hand Name Role Phone Hayden Oreilly MD Primary Care Provi erinn Pipo Richardson MD Unavailable [phone] Layne MauriceW Unavailable [phone] Reason for Visit * Auth/Cert (Routine) Specialty Diagnoses / Procedures Referred By Contac t Referred To Contact Referral ID Status Reason Start Date Expiration Date Visits Re quested Visits Authorized [id number] 1 8 Encounter Details Date Type Department Care Team (Late st Contact Info) Description 01/09/2025 10:00 AM CDT Home Care Visit [facility] [address] [place] [address] Surya Ibrahim, PT PT HOME VISIT Social [...] materials from doctor or pharmacy Always 12/31/2024 [facility] Utilities Answer Date Recorded In the past [...] often do you attend chur ch or adventist services? Never 11/28/2024 Do you belong to [...] time in the past 12 m [facility], were you homeless or living in a [facility] (including now)? No 11/28/2024 Personal Safety Answer Date Recorded Have you ever been in or are you currently in a harmful physical or emotional relationship or is someone making you feel afraid or unsafe? 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 IMMUNOHEMATOLOGIST Gender Identity Not on file Sexual Orientation [...] medication. Educated to get appropriate medication per lure maker recommendations today * Home Health Plan for [...] On track(2024 9:53 AM CDT) Layne Gordon, LAB SCIENTIST Note: Problem: Barriers to Home Accessibility Interventions: [...] visit Disciplines: Skilled Disciplines, SN, PT, OT, NURSE WOUND, COMMUNICATIONS EQUIPMENT OPERATOR Monitor patient's vital signs every home [...] Notes Prevent development of pressure injuries Description: group home goal: The patient will maintain intact skin and avoid the development of pressure injuries within 1 month Short term goal: The patient/caregiver will understand and adhere to pressure prevention interventions within 2 visits Pressure Prevention No Measure vital signs during every home health visit during episode of care Description: Home home health clinician to measure vital signs during every [...] extremities. documented in this encounter Care Teams Desulfurizer Hand Relationship Specialty Start Date End Date Hayden Oreilly MD [address] [facility] [address] [place] [address] PCP - General Family Medicine 01/31/19 Pipo Richardson MD [address] [place] [address] Surgeon Vascular Surgery 02/27/24 Layne Maurice, LAB SCIENTIST [address] [place] [address] Chief Operator Reformer 11/22/24 documented as of this encounter
[2025-01-10 08:19] LABS: NT Pro B Type Natriuretic Pept 1180 pg/mL (19.9-100)
[2025-01-10 08:37] LABS: Add Urine Microscopic? YES; Appearance Urine Cloudy (Clear); Bacteria Urine None Seen /hpf; Bilirubin Urine Negative (Negative); Blood Urine Negative (Negative); Color Urine Yellow (Yellow); Glucose Urine UA Negative (Negative); Ketones Urine Negative (Negative); Leukocyte Esterase Ur 2+ LEU/UL (Negative); Need Manual Microscopic Reviewed; Nitrate Urine Negative (Negative); Protein Urine Negative (Negative); RBC Urine 0-2 /hpf (0-2); Specific Grav Ur 1.014 (1.001-1.035); Squamous Epithelial Cell Urine Many /hpf (Few); Urobilinogen Urine 0.2 mg/dL (<2.0); pH Urine 5.5 (5.0-9.0)
[2025-01-10] MEDS: IPRATROPIUM 0.5 MG/ALBUTEROL SULFATE 2.5 MG AMPUL.NEB 3 ML INHALATION ×3 (08:40→20:40)
[2025-01-10] MEDS: POTASSIUM CHLORIDE 20 MEQ PACKET (FOR LIQUID) PO (08:54)
--- NOTE | 2025-01-10 09:20 | ADMGEN ---
This patient, Ghazal Valadez, was admitted to Medical Room 246-. Patient/family oriented to hospital policies and general routines including ID bracelet, bed and alarms, visiting hours, pain management, procedures, bathroom and other care routines, personal items, smoking policy, room service/diet, and visiting hours. Information on how to activate the Rapid Response Team has been discussed. Patient/Family are encouraged to report perceived risks to care and to ask questions if they do not understand what they are told or what they should do.
[2025-01-10] MEDS: POTASSIUM CHLORIDE 20 MEQ ER TABLET 40 MEQ PO (10:06)
--- NOTE | 2025-01-10 13:39 | P.HP_ITS ---
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 The patient presents here from home on 01/10 for further evaluation of dizziness and shortness of breath. She reports she has been dizzy for the past 2 days. She further describes this as a haze and like the room was spinning. She has a history of vertigo, however she reports the dizziness felt different than her usual. Now has mostly resolved, patient took her home Meclizine which eventually helped partial resolve her symptoms. States she still has a little dizziness with exertion. She is also reporting worsening shortness of breath and a chronic cough for the past 2 months, however has some level of chronic shortness of breath due to COPD. Cough has been nonproductive. She initially sought care with her PCP 2 weeks ago who increased her diuretics - she reports her LE edema significantly improved. Patient saw her glue mounter operator 3 days ago and was given a new prescription, she is unsure of the name - possibly anticoagulant. She denies associated nausea, vomiting, diarrhea, fever, chills, chest pain, syncope, or abdominal pain. She also denies dysuria, urinary frequency, urinary hesitancy, flank pain, or suprapubic pain. Initial VS at presentation: 97.30° F, HR 90, R 22, 133/92, and 96% on RA. ED workup showed: WBC 18.6, hemoglobin 8.5 (previously 9.4 on 11/17/2024), potassium 2.9, creatinine 1.61 and GFR 30 (previously 1.36 and GFR 37 on 11/17/2024), BNP 1180, and initial troponin was 0.030, normal TSH, UA suspicious for UTI) however many epithelial cells, may be contaminant). CXR showed clear lungs and a T11 compression deformity. Head CT showed no acute intracranial process and moderate scattered white matter hypoattenuation consistent with chronic small-vessel ischemic disease as well as a few scattered old lacunar infarcts in the bilateral periventricular white matter in caudate nuclei. 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 CVA (cerebral vascular accident) (04/2024) Osteoporosis Essential hypertension GERD (gastroesophageal reflux disease) Hypothyroidism Emphysema/COPD Surgical History Surgical History Peripheral arterial disease with history of revascularization (~04/2024) Bilateral lower extremity stents Status post cataract extraction of both eyes with insertion of intraocular lens Status post open reduction with internal fixation of fracture Left patellar fracture History of loop recorder Status post urethral diverticulectomy History of appendectomy History of tonsillectomy and adenoidectomy History of bladder suspension procedure Family History Family History Sibling Asthma Father Diabetes mellitus Hypertension Social History Social History Social History: The patient been since 2023. She is a former smoker she smoked 2.5 packs of cigarettes per day but quit in 1993. She used to drink 3-4 alcoholic beverages a week in still will occasionally drink alcohol in moderation. She raised 5 children. 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 She still drives. She ambulates with a cane. Code status: Full code Surrogate decision maker: Meera Schultz (daughter) Smoking status: Former smoker Alcohol intake: former Substance use: never Do You Feel Safe in your Home?: Yes Lack of Transportation: No Lack of Food: Never True Current Housing: I Have Housing Concerned About Future Housing: No Difficulty Paying Gas/Electric Bills: No Difficulty Paying for Meds: No Currently Unemployed: No Education: High School Diploma/GED Difficulty w/ Childcare or Family Care: No Spiritual care concerns: No Meds Home Medications and Allergies Home Medications Medication Instructions Recorded Confirmed Type albuterol sulfate 2.5 mg/3 mL 2.5 mg inhalation Q4-6H PRN 10/26/24 01/10/25 History (0.083 %) solution for nebulization shortness of breath or wheezing albuterol sulfate 90 mcg/actuation 2 puff inhalation Q4-6H PRN 10/26/24 01/10/25 History aerosol inhaler shortness of breath or wheezing alendronate 70 mg tablet 70 mg PO WEEKLY 10/26/24 01/10/25 History aspirin 81 mg chewable tablet 81 mg PO DAILY 10/26/24 01/10/25 History atorvastatin 40 mg tablet 40 mg PO QPM 10/26/24 01/10/25 History benzonatate 100 mg capsule 100 mg PO TID PRN cough 10/26/24 01/10/25 History clopidogrel 75 mg tablet 75 mg PO DAILY 10/26/24 01/10/25 History levothyroxine 125 mcg tablet 125 mcg PO DAILY 10/26/24 01/10/25 History meclizine 25 mg tablet 25 mg PO QID PRN dizziness 10/26/24 01/10/25 History pantoprazole 40 mg tablet,delayed 40 mg PO DAILY 10/26/24 01/10/25 History release valsartan 160 1 tablet PO DAILY 10/26/24 01/10/25 History mg-hydrochlorothiazide 25 mg tablet alprazolam 0.25 mg tablet 0.25 mg PO TID PRN Anxiety #10 tabs 11/05/24 01/10/25 Rx citalopram 10 mg tablet (Celexa) 10 mg PO QAM #30 tabs 11/05/24 01/10/25 Rx acetaminophen 325 mg tablet 325 mg PO Q6H PRN pain 01/10/25 01/10/25 History (Tylenol) apixaban 5 mg tablet (Eliquis) 5 mg PO BID 01/10/25 01/10/25 History cholecalciferol (vitamin D3) 50 2,000 unit PO DAILY 01/10/25 01/10/25 History mcg (2,000 unit) capsule docusate sodium 100 mg capsule 100 mg PO DAILY 01/10/25 01/10/25 History fluticasone fur. 100 mcg-umeclid 1 inh inhalation DAILY 01/10/25 01/10/25 History 62.5 mcg-vilant 25 mcg inhalat.powder (Trelegy Ellipta) furosemide 40 mg tablet 40 mg PO DAILY 01/10/25 01/10/25 History ipratropium 0.5 mg-albuterol 3 mg 3 ml inhalation QID PRN shortness 01/10/25 01/10/25 History (2.5 mg base)/3 mL nebulization of breath or wheezing soln meloxicam 15 mg tablet 15 mg PO DAILY 01/10/25 01/10/25 History metolazone 2.5 mg tablet 2.5 mg PO .Q48HR 01/10/25 01/10/25 History polyethylene glycol 3350 17 gram 17 g PO DAILY PRN constipation 01/10/25 01/10/25 History oral powder packet (Powderlax) Allergies Allergy/AdvReac Type Severity Reaction Status Date / Time levofloxacin AdvReac Abdominal Verified 01/10/25 05:32 Pain Vital Signs Vital Signs - 24 hr 01/10/25 05:44 01/10/25 05:44 01/10/25 06:04 Temperature 97.7 F Pulse Rate 90 94 109 H Respiratory Rate 22 H 21 H Blood Pressure 133/92 H Pulse Oximetry 96 96 Oxygen Delivery Room Air 01/10/25 06:15 01/10/25 06:16 01/10/25 06:33 Temperature Pulse Rate 93 96 115 H Respiratory Rate 25 H 20 22 H Blood Pressure 114/62 Pulse Oximetry 95 97 Oxygen Delivery 01/10/25 06:34 01/10/25 06:58 01/10/25 07:01 Temperature Pulse Rate 101 H 102 H 99 Respiratory Rate 20 22 H 19 Blood Pressure 108/54 L 136/84 Pulse Oximetry 96 Oxygen Delivery 01/10/25 07:17 01/10/25 07:31 01/10/25 07:46 Temperature Pulse Rate 113 H 102 H 101 H Respiratory Rate 24 H 15 15 Blood Pressure 104/66 113/55 L 110/54 L Pulse Oximetry 98 99 Oxygen Delivery 01/10/25 07:59 01/10/25 08:40 01/10/25 08:40 Temperature Pulse Rate 101 H 104 H Respiratory Rate 19 20 Blood Pressure 110/54 L Pulse Oximetry 98 95 Oxygen Delivery Room Air 01/10/25 08:54 01/10/25 09:08 01/10/25 12:00 Temperature Pulse Rate 102 H 101 H 99 Respiratory Rate 20 23 H Blood Pressure 135/71 Pulse Oximetry 98 Oxygen Delivery Exam Const: General: comfortable and no acute distress Other: , female, nontoxic appearance HENMT: Face/Nose/Sinus: Normal nares present Mouth: Yes moist mucous membranes Eyes: General: appearance normal, both eyes and all related structures Sclera: sclerae normal Pupils: Equal, round and reactive pupils present EOM: EOMs intact bilaterally Resp: Effort & Inspection: normal respiratory effort Other: bibasilar crackles, scattered wheezing. Cardio: Rate: regular rate Rhythm: regular rhythm Other: + murmur GI: Other: Abdomen soft, nondistended, nontender. Normoactive bowel sounds in all quadrants. Skin: General skin exam: normal color and no rashes or lesions noted Wounds: no wounds Neuro: Speech: normal speech Motor exam (neuro): 5/5 motor strength present throughout Sensory Exam: normal sensation Other: A&O x4. NIHSS 0. Extrem: General: normal to inspection Psych: Mental Status: mental status grossly normal Affect: normal affect Other: Good insight and judgment, pleasant H&P: Results Labs Labs: Short CBC 01/10/25 Range/Units 05:59 WBC 18.6 H (4.5-10.0) K/mm3 Hgb 8.5 L (12.0-15.0) g/dL Hct 30.1 L (37.0-47.0) % Plt Count 576 H D (150-375) k/mm3 BMP 01/10/25 05:59 Sodium 136 L Potassium 2.9 L Chloride 93 L Carbon Dioxide 30 BUN 86 H D Creatinine 1.61 H Glucose 170 H Calcium 9.6 Cardiac Enzymes 01/10/25 Range/Units 05:58 Troponin I 0.030 (0.000-0.034) ng/mL Liver Function 01/10/25 Range/Units 05:59 Total Bilirubin 0.8 (0.2-1.3) mg/dL AST 20 (14-36) U/L ALT 20 (6-35) U/L Alkaline Phosphatase 92 (38-126) U/L Albumin 4.4 (3.5-5.1) g/dL Urine 01/10/25 Range/Units 08:22 Urine Color Yellow (Yellow) Urine Appearance Cloudy H (Clear) Urine pH 5.5 (5.0-9.0) Ur Specific [place] 1.014 (1.001-1.035) Urine Protein Negative (Negative) mg/dL Urine Glucose (UA) Negative (Negative) mg/dL Assessment and Plan Assessment and plan (1) Acute kidney injury: Code(s): N17.9 - Acute kidney failure, unspecified Status: Acute Assessment and Plan: Creatinine 1.61 and GFR 30. Previously 1.36 and GFR 37 on 11/17/2024. Possible UTI, however many epithelial cells which may indicate contamination. Started on ABX, follow culture. May be contributing to worsening renal function. BNP elevated, no known history of CHF. Has been reporting shortness of breath and cough. No echo on file, ordered. IV fluids: LR at 100 mL/hour x1 L, will proceed slowly due to possibility of new CHF. Trend renal function. Correct electrolytes as needed, monitor. (2) Dizziness: Code(s): R42 - Dizziness and giddiness Status: Acute Assessment and Plan: Dizziness x2 days. History of vertigo and stroke. No change in dizziness with meclizine p.o. prior to arrival. Continue patient's home med: Meclizine 15 mg daily. (3) COPD (chronic obstructive pulmonary disease): Qualifiers: COPD type: COPD with acute lower respiratory infection Qualified Code(s): J44.0 - Chronic obstructive pulmonary disease with (acute) lower respiratory infection Code(s): J44.9 - Chronic obstructive pulmonary disease, unspecified Status: Acute Assessment and Plan: Wheezing and rhonchi upon arrival to the ED on 01/10. DuoNebs q.6 rama. Will hold on abx and steroids, no increased O2 requirement and cough remains dry (no increased sputum production). (4) Acute hypokalemia: Code(s): E87.6 - Hypokalemia Status: Acute Assessment and Plan: Potassium 2.9 upon arrival. Initial repletion with 40 p.o. of KCl. Plan for recheck this evening. Monitor. (5) Elevated brain natriuretic peptide (BNP) level: Code(s): R79.89 - Other specified abnormal findings of blood chemistry Status: Acute Assessment and Plan: BNP 1180 No echo on file, ordered. Monitor I&Os daily weights. CXR showed no evidence of pulmonary congestion. On Lasix 40 mg p.o. daily and metolazone 2.5 mg Q 48 hours - continue. Hold HCTZ 25 mg daily (believes her provider d/c'd this medication) Initially presented with rhonchi and wheezing on exam, does have history of COPD. Shortness of breath secondary to COPD versus new CHF? In favor of CHF. (6) UTI (urinary tract infection): Qualifiers: Hematuria presence: without hematuria Urinary tract infection type: acute cystitis Qualified Code(s): N30.00 - Acute cystitis without hematuria Code(s): N39.0 - Urinary tract infection, site not specified Status: Suspected Assessment and Plan: UA showed 2+ leuks, 11-20 WBC, many epithelial cells. Contaminant versus infection. Check urine culture, follow. Started on ceftriaxone on 01/10. (7) Hypothyroidism: Qualifiers: Hypothyroidism type: unspecified Qualified Code(s): E03.9 - Hypothyroidism, unspecified Code(s): E03.9 - Hypothyroidism, unspecified Status: Chronic Assessment and Plan: Continue home Synthroid. TSH 1.77 on 01/10/2025. (8) Essential hypertension: Code(s): I10 - Essential (primary) hypertension Status: Chronic Assessment and Plan: Chronic, currently 129/56. Continue home medications: Lasix, metolazone. Hold valsartan-hydrochlorothiazide, believes she was taken off this medication. Monitor. Plan Patient here for dizziness that has resolved with meclizine. Some intermittent dizziness with exertion. Continue meclizine. BNP elevated along with history of lower extremity edema treated with diuretic raises concerns for new CHF. UA also concerning for UTI, however may be contaminant, follow urine culture, started on ceftriaxone. Patient currently feeling improved. Diet: Heart healthy, dietary supplements GI Prophylaxis: Not currently indicated DVT Prophylaxis: Eliquis IV fluids: LR 100 mL/hour x1 L Lines/Tubes: Peripheral IV Code Status: Full code Quality VTE Prophylaxis VTE prophylaxis: pharmacologic ordered Hospitalist MIPS Advance Care Plan I have confirmed that the patient's Advanced Care Plan is present, code status is documented, or surrogate decision maker is listed in patient medical record.: Yes Medication Reconciliation I have utilized all available resources to obtain, update and review the patients current medications (includes all prescriptions, OTC, herbals, cannabis, and nutritional supplements).: Yes
[2025-01-10] MEDS: LACTATED RINGERS 1,000 ML 100 ML IV CONT (15:13)
[2025-01-10] MEDS: MELOXICAM 7.5 MG TABLET 15 MG PO (15:14)
[2025-01-10] MEDS: DOCUSATE SODIUM 100 MG CAPSULE PO (15:14)
[2025-01-10] MEDS: MECLIZINE HCL 25 MG TABLET PO (15:14)
[2025-01-10] MEDS: FUROSEMIDE 40 MG TABLET PO (15:14)
[2025-01-10] MEDS: CHOLECALCIFEROL 1,000 UNITS TABLET 2000 UNITS PO (15:14)
[2025-01-10] MEDS: PANTOPRAZOLE 40 MG TABLET PO (15:14)
[2025-01-10] MEDS: ATORVASTATIN 40 MG TABLET PO (17:34)
[2025-01-10 17:35] LABS: Anion Gap 10 mmol/L (4-12); Blood Urea Nitrogen 82 mg/dL (7-17); Calcium 9.6 mg/dL (8.4-10.2); Carbon Dioxide 33 mmol/L (22-30); Chloride 96 mmol/L (98-107); Estimated CRCL calculation 22 ml/min; Estimated Glomerular Filt Rate 31; Glucose 125 mg/dL (65-110); Potassium 3.8 mmol/L (3.4-5.0); Sodium 139 mmol/L (137-145)
[2025-01-10] MEDS: APIXABAN 5 MG TABLET PO (20:54)
[2025-01-11] VITALS (18 sets, daily range): BP systolic 108–141; BP diastolic 52–61; PULSE 70–100; RESP 14–24; TEMP 36.3–36.6; O2SAT 93–99
[2025-01-11] MEDS: IPRATROPIUM 0.5 MG/ALBUTEROL SULFATE 2.5 MG AMPUL.NEB 3 ML INHALATION ×4 (02:41→20:27)
[2025-01-11] MEDS: LEVOTHYROXINE SODIUM 125 MCG TABLET PO (05:09)
[2025-01-11 05:27] LABS: Basophils Percent Auto 0.2 % (0.2-1.2); Eosinophils Absolute Auto 0.3 K/mm3 (0-0.3); Eosinophils Percent Auto 2.3 % (0-4.4); Hematocrit 26.8 % (37.0-47.0); Hemoglobin 7.3 g/dL (12.0-15.0); Immature Granulocyte Absolute 0.14 K/mm3 (0.00-0.031); Immature Granulocyte Percent A 1.1 % (0-0.5); Lymphocytes Absolute Auto 2.43 K/mm3 (0.9-3.2); Lymphocytes Percent Auto 18.7 % (18.3-44.2); Mean Corpuscular HGB Conc 27.2 g/dl (32-36); Mean Corpuscular Hemoglobin 20.1 pg (26-34); Mean Corpuscular Volume 73.8 fl (80-100); Mean Platelet Volume 9.5 fl (7.4-10.4); Monocytes Absolute Auto 1.6 K/mm3 (0.1-0.6); Monocytes Percent Auto 12.4 % (2.6-8.5); Neutrophils Absolute Auto 8.5 K/mm3 (1.3-6.7); Neutrophils Percent Auto 65.3 % (45.5-73.1); Platelet Count Result 426 k/mm3 (150-375); Red Blood Count 3.63 M/mm3 (4.2-5.4); Red Cell Distribution Width 19.6 % (11.5-14.5)
[2025-01-11 05:48] LABS: Alanine Aminotransferase 17 U/L (6-35); Albumin Level 3.7 g/dL (3.5-5.1); Alkaline Phosphatase 74 U/L (38-126); Anion Gap 12 mmol/L (4-12); Aspartate Amino Transferase 21 U/L (14-36); Bilirubin,Total 0.6 mg/dL (0.2-1.3); Blood Urea Nitrogen 76 mg/dL (7-17); Calcium 9.6 mg/dL (8.4-10.2); Carbon Dioxide 31 mmol/L (22-30); Chloride 95 mmol/L (98-107); Estimated CRCL calculation 26 ml/min; Estimated Glomerular Filt Rate 38; Glucose 138 mg/dL (65-110); Magnesium 1.7 mg/dL (1.6-2.3); Potassium 3.3 mmol/L (3.4-5.0); Sodium 138 mmol/L (137-145)
[2025-01-11 06:24] LABS: Hypochromasia 1+; Platelet Estimate Increased (Adequate); Polychromasia 1+
[2025-01-11 06:25] LABS: Anisocytosis 1+; Microcytosis 1+ (NORMAL); Ovalocytes 1+; Schistocytes None Seen
--- NOTE | 2025-01-11 07:58 | P.PNIM_ITS ---
Progress Note: A&P Assessment and Plan (1) Acute kidney injury: Code(s): N17.9 - Acute kidney failure, unspecified Status: Acute Assessment and Plan: Creatinine 1.61 and GFR 30. Previously 1.36 and GFR 37 on 11/17/2024. Possible UTI, however many epithelial cells which may indicate contamination. Started on ABX, follow culture. May be contributing to worsening renal function. BNP elevated, no known history of CHF. Has been reporting shortness of breath and cough. No echo on file, ordered. IV fluids: LR at 100 mL/hour x1 L, will proceed slowly due to possibility of new CHF. Trend renal function. Correct electrolytes as needed, monitor. (2) Dizziness: Code(s): R42 - Dizziness and giddiness Status: Acute Assessment and Plan: Dizziness x2 days. History of vertigo and stroke. No change in dizziness with meclizine p.o. prior to arrival. Continue patient's home med: Meclizine 15 mg daily. fall precautions (3) COPD (chronic obstructive pulmonary disease): Qualifiers: COPD type: COPD with acute lower respiratory infection Qualified Code(s): J44.0 - Chronic obstructive pulmonary disease with (acute) lower respiratory infection Code(s): J44.9 - Chronic obstructive pulmonary disease, unspecified Status: Acute Assessment and Plan: Wheezing and rhonchi upon arrival to the ED on 01/10. DuoNebs q.6 rama. Will hold on abx and steroids, no increased O2 requirement and cough remains dry (no increased sputum production). stable, no sob monitor for now IS, out of bed TID and prn (4) Acute hypokalemia: Code(s): E87.6 - Hypokalemia Status: Acute Assessment and Plan: Potassium 2.9 upon arrival. Initial repletion with 40 p.o. of KCl. Plan for recheck this evening. Monitor k 3.3 will order daily replacement daily labs to monitor (5) Elevated brain natriuretic peptide (BNP) level: Code(s): R79.89 - Other specified abnormal findings of blood chemistry Status: Acute Assessment and Plan: BNP 1180 No echo on file, ordered. Monitor I&Os daily weights. CXR showed no evidence of pulmonary congestion. On Lasix 40 mg p.o. daily and metolazone 2.5 mg Q 48 hours - continue. Hold HCTZ 25 mg daily (believes her provider d/c'd this medication) Initially presented with rhonchi and wheezing on exam, does have history of COPD. Shortness of breath secondary to COPD versus new CHF? In favor of CHF. strict I/O (6) UTI (urinary tract infection): Qualifiers: Hematuria presence: without hematuria Urinary tract infection type: acute cystitis Qualified Code(s): N30.00 - Acute cystitis without hematuria Code(s): N39.0 - Urinary tract infection, site not specified Status: Suspected Assessment and Plan: UA showed 2+ leuks, 11-20 WBC, many epithelial cells. Contaminant versus infection. Check urine culture, follow. Started on ceftriaxone on 01/10. (7) Hypothyroidism: Qualifiers: Hypothyroidism type: unspecified Qualified Code(s): E03.9 - Hypothyroidism, unspecified Code(s): E03.9 - Hypothyroidism, unspecified Status: Chronic Assessment and Plan: Continue home Synthroid. TSH 1.77 on 01/10/2025. (8) Essential hypertension: Code(s): I10 - Essential (primary) hypertension Status: Chronic Assessment and Plan: Chronic, stable Continue home medications: Lasix, metolazone. Hold valsartan-hydrochlorothiazide, believes she was taken off this medication. Monitor. Plan Patient here for dizziness that has resolved with meclizine. Some intermittent dizziness with exertion. Continue meclizine. BNP elevated along with history of lower extremity edema treated with diuretic raises concerns for new CHF. UA also concerning for UTI, however may be contaminant, follow urine culture, started on ceftriaxone. Patient currently feeling improved. 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 Pt describes this as a haze and like the room was spinning. She has a history of vertigo for which she takes meclizine. Worsening shortness of breath - has COPD. Nonproductive cough. 2 weeks ago she was seen per her PCP who increased her diuretics - LE edema significantly improved. 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 She denies associated nausea, vomiting, diarrhea, fever, chills, chest pain, syncope, or abdominal pain. She also denies dysuria, urinary frequency, urinary hesitancy, flank pain, or suprapubic pain. in ed: 97.30° F, HR 90, R 22, 133/92, and 96% on RA. ED workup showed: WBC 18.6, hemoglobin 8.5 (previously 9.4 on 11/17/2024), potassium 2.9, creatinine 1.61 and GFR 30 (previously 1.36 and GFR 37 on 11/17/2024), BNP 1180, and initial troponin was 0.030, normal TSH, UA suspicious for UTI) however many epithelial cells, may be contaminant). CXR showed clear lungs and a T11 compression deformity. Head CT showed no acute intracranial process and moderate scattered white matter hypoattenuation consistent with chronic small-vessel ischemic disease as well as a few scattered old lacunar infarcts in the bilateral periventricular white matter in caudate nuclei. Pt is seen and examined. She is doing ok this am, reports no pain. Had been having issues with balance and strength lately. Review of Systems Review of Systems: All systems reviewed & are unremarkable except as noted in HPI and below Exam Narrative: bibasilar crackles, scattered wheezing. no peripheral edema. +heart murmur. Const: General: comfortable and no acute distress Other: , female, nontoxic appearance HENMT: Face/Nose/Sinus: Normal nares present Mouth: Yes moist mucous membranes Eyes: General: appearance normal, both eyes and all related structures Sclera: sclerae normal Pupils: Equal, round and reactive pupils present EOM: EOMs intact bilaterally Resp: Effort & Inspection: normal respiratory effort Other: bibasilar crackles, scattered wheezing. Cardio: Rate: regular rate Rhythm: regular rhythm Other: + murmur GI: Other: Abdomen soft, nondistended, nontender. Normoactive bowel sounds in all quadrants. Skin: General skin exam: normal color and no rashes or lesions noted Wounds: no wounds Neuro: Cranial nerves: Yes Equal, round and reactive pupils present Speech: normal speech Motor exam (neuro): 5/5 motor strength present throughout Sensory Exam: normal sensation Other: A&O x4. NIHSS 0. Extrem: General: normal to inspection Psych: Mental Status: mental status grossly normal Affect: normal affect Other: Good insight and judgment, pleasant Objective Data Vital Signs Vital Signs: Vital Signs - 24 hr 01/10/25 07:59 01/10/25 08:40 01/10/25 08:40 Temperature Pulse Rate 101 H 104 H Respiratory Rate 19 20 Blood Pressure 110/54 L Pulse Oximetry 98 95 Oxygen Delivery Room Air Fraction of Inspired Oxygen 01/10/25 08:54 01/10/25 09:08 01/10/25 09:50 Temperature Pulse Rate 102 H 101 H Respiratory Rate 20 23 H Blood Pressure 135/71 Pulse Oximetry 98 95 Oxygen Delivery Room Air Fraction of Inspired Oxygen 01/10/25 12:00 01/10/25 13:58 01/10/25 15:44 Temperature 97.4 F L Pulse Rate 99 89 93 Respiratory Rate 18 20 Blood Pressure 129/56 L Pulse Oximetry 100 94 Oxygen Delivery Room Air Fraction of Inspired Oxygen 01/10/25 15:44 01/10/25 15:52 01/10/25 16:00 Temperature Pulse Rate 93 86 100 Respiratory Rate 20 20 Blood Pressure Pulse Oximetry Oxygen Delivery Fraction of Inspired Oxygen 01/10/25 20:00 01/10/25 20:14 01/10/25 20:40 Temperature 97.5 F L Pulse Rate 129 H 101 H 88 Respiratory Rate 18 16 Blood Pressure 138/53 L Pulse Oximetry 96 91 Oxygen Delivery Room Air Fraction of Inspired Oxygen 21 01/10/25 20:40 01/10/25 20:50 01/10/25 20:55 Temperature Pulse Rate 88 90 Respiratory Rate 16 16 Blood Pressure Pulse Oximetry Oxygen Delivery Room Air Fraction of Inspired Oxygen 01/11/25 00:00 01/11/25 02:41 01/11/25 02:55 Temperature Pulse Rate 92 91 89 Respiratory Rate 24 H 20 Blood Pressure Pulse Oximetry Oxygen Delivery Fraction of Inspired Oxygen 01/11/25 04:00 01/11/25 05:38 Temperature 97.4 F L Pulse Rate 97 76 Respiratory Rate 17 Blood Pressure 111/61 Pulse Oximetry 98 Oxygen Delivery Fraction of Inspired Oxygen Intake/Output Intake/Output: Intake & Output 01/08/25 01/09/25 01/10/25 01/11/25 23:59 23:59 23:59 23:59 Intake Total 710 1600 Output Total 1 Balance 709 1600 Meds/Results Medications: Active Medications Generic Name Dose Route Start Last Admin Trade Name Freq PRN Reason Stop Dose Admin Acetaminophen 650 mg 01/10/25 08:17 Acetaminophen 325 Mg Tablet PO Q4H PRN Mild Pain (1-3) or Fever Albuterol/Ipratropium 3 ml 01/10/25 08:00 01/11/25 02:41 Ipratropium 0.5 Mg/Albuterol Sulfate 2.5 Mg Ampul.Neb 3 Ml INHALATION 3 ml Q6HRT RAMA Administration Alendronate Sodium 70 mg 01/13/25 06:30 Alendronate Sodium 70 Mg Tablet PO Mo@0630 RAMA Alprazolam 0.25 mg 01/10/25 14:06 Alprazolam (*Crx) 0.25 Mg Tablet PO TID PRN Anxiety Apixaban 5 mg 01/10/25 21:00 01/10/25 20:54 Apixaban 5 Mg Tablet PO 5 mg Q12HR RAMA Administration Atorvastatin Calcium 40 mg 01/10/25 18:00 01/10/25 17:34 Atorvastatin 40 Mg Tablet PO 40 mg QPM RAMA Administration Benzonatate 100 mg 01/10/25 14:06 Benzonatate 100 Mg Capsule PO TID PRN cough Docusate Sodium 100 mg 01/10/25 14:20 01/10/25 15:14 Docusate Sodium 100 Mg Capsule PO 100 mg DAILY RAMA Administration Fluticasone/Umeclidinium/Vilanterol 1 puff 01/11/25 09:00 Fluticasone/Umeclidin/Vilanter 100-62.5-25 Mcg Ellipta INHALATION DAILY RAMA Furosemide 40 mg 01/10/25 14:20 01/10/25 15:14 Furosemide 40 Mg Tablet PO 40 mg DAILY RAMA Administration Hydrochlorothiazide 25 mg 01/10/25 14:25 01/10/25 15:14 Hydrochlorothiazide 25 Mg Tablet PO Not Given DAILY RAMA Ceftriaxone Sodium 1 gm in 50 mls @ 100 mls/hr 01/10/25 15:00 01/10/25 15:13 Rocephin 1 Gm/Ns 50 Ml IVPB 100 mls/hr Q24H RAMA Administration Levothyroxine Sodium 125 mcg 01/11/25 06:30 01/11/25 05:09 Levothyroxine Sodium 125 Mcg Tablet PO 125 mcg DAILY@0630 RAMA Administration Meclizine HCl 25 mg 01/10/25 14:06 01/10/25 15:14 Meclizine Hcl 25 Mg Tablet PO 25 mg QID PRN Administration dizziness Meloxicam 15 mg 01/10/25 14:20 01/10/25 15:14 Meloxicam 7.5 Mg Tablet PO 15 mg DAILY RAMA Administration Metolazone 2.5 mg 01/11/25 09:00 Metolazone 2.5 Mg Tablet PO Q48HR RAMA Pantoprazole Sodium 40 mg 01/10/25 14:20 01/10/25 15:14 Pantoprazole 40 Mg Tablet PO 40 mg DAILY RAMA Administration Polyethylene Glycol 17 gm 01/10/25 14:06 Polyethylene Glycol 3350 17 Gm Powd.Pack PO DAILY PRN constipation Valsartan 160 mg 01/10/25 14:20 01/10/25 15:14 Valsartan 160 Mg Tablet PO Not Given DAILY RAMA Vitamin D 2,000 units 01/10/25 14:20 01/10/25 15:14 Cholecalciferol 1,000 Units Tablet PO 2,000 units DAILY RAMA Administration Radiology Results: ITS Impressions Chest X-Ray 01/10/25 06:32 Impression: Clear lungs. T11 compression deformity. Head CT 01/10/25 08:33 IMPRESSION: 1. No acute intracranial process. 2. 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 Labs Labs: Laboratory Results - last 24 hr 01/10/25 01/10/25 01/10/25 05:58 08:22 17:12 WBC RBC Hgb Hct MCV MCH MCHC RDW Plt Count MPV Immature Gran % (Auto) Neut % (Auto) Lymph % (Auto) [place] % (Auto) Eos % (Auto) Baso % (Auto) Lymph # (Auto) [place] # (Auto) Eos # (Auto) Baso # (Auto) Abs Immat Gran (auto) Absolute Neuts (auto) Absolute Nucleated RBC Band Neutrophils % Nucleated RBC % Platelet Estimate Polychromasia Hypochromasia Anisocytosis Microcytosis Ovalocytes Schistocytes Sodium 139 Potassium 3.8 Chloride 96 L Carbon Dioxide 33 H Anion Gap 10 BUN 82 H Creatinine 1.57 H Estim Creat Clear Calc 22 Estimated GFR 31 L Glucose 125 H Calcium 9.6 Magnesium Total Bilirubin AST ALT Alkaline Phosphatase Troponin I 0.030 NT-Pro-B Natriuret Pep 1180 H Total Protein Albumin TSH 1.770 Urine Color Yellow Urine Appearance Cloudy H Urine pH 5.5 Ur Specific [place] 1.014 Urine Protein Negative Urine Glucose (UA) Negative Urine Ketones Negative Ur Blood (Man) Negative Urine Nitrate Negative Urine Bilirubin Negative Urine Urobilinogen 0.2 Add Ur Microanalysis Reviewed Leukocyte Esterase Rfl 2+ H Urine RBC 0-2 Urine WBC 11-20 H Ur Squamous Epith Cells Many H Urine Bacteria None seen Urine Casts 11-20 01/11/25 04:42 WBC 13.0 H RBC 3.63 L Hgb 7.3 L Hct 26.8 L MCV 73.8 L MCH 20.1 L MCHC 27.2 L RDW 19.6 H Plt Count 426 H MPV 9.5 Immature Gran % (Auto) 1.1 H Neut % (Auto) 65.3 Lymph % (Auto) 18.7 [place] % (Auto) 12.4 H Eos % (Auto) 2.3 Baso % (Auto) 0.2 Lymph # (Auto) 2.43 [place] # (Auto) 1.6 H Eos # (Auto) 0.3 Baso # (Auto) 0.0 Abs Immat Gran (auto) 0.14 H Absolute Neuts (auto) 8.5 H Absolute Nucleated RBC 0.000 Band Neutrophils % Not Reportable Nucleated RBC % 0.0 Platelet Estimate Increased Polychromasia 1+ Hypochromasia 1+ Anisocytosis 1+ Microcytosis 1+ Ovalocytes 1+ Schistocytes None seen Sodium 138 Potassium 3.3 L Chloride 95 L Carbon Dioxide 31 H Anion Gap 12 BUN 76 H Creatinine 1.32 H Estim Creat Clear Calc 26 Estimated GFR 38 L Glucose 138 H Calcium 9.6 Magnesium 1.7 Total Bilirubin 0.6 AST 21 ALT 17 Alkaline Phosphatase 74 Troponin I NT-Pro-B Natriuret Pep Total Protein 7.0 Albumin 3.7 TSH Urine Color Urine Appearance Urine pH Ur Specific [place] Urine Protein Urine Glucose (UA) Urine Ketones Ur Blood (Man) Urine Nitrate Urine Bilirubin Urine Urobilinogen Add Ur Microanalysis Leukocyte Esterase Rfl Urine RBC Urine WBC Ur Squamous Epith Cells Urine Bacteria Urine Casts Quality VTE Prophylaxis VTE prophylaxis: pharmacologic ordered
[2025-01-11] MEDS: ALPRAZolam (*CRX) 0.25 MG TABLET PO ×2 (08:12→12:37)
[2025-01-11] MEDS: APIXABAN 5 MG TABLET PO ×2 (08:12→21:21)
[2025-01-11] MEDS: MECLIZINE HCL 25 MG TABLET PO (08:12)
[2025-01-11] MEDS: FUROSEMIDE 40 MG TABLET PO (08:12)
[2025-01-11] MEDS: CHOLECALCIFEROL 1,000 UNITS TABLET 2000 UNITS PO (08:12)
[2025-01-11] MEDS: MELOXICAM 7.5 MG TABLET 15 MG PO (08:12)
[2025-01-11] MEDS: metOLazone 2.5 MG TABLET PO (08:12)
[2025-01-11] MEDS: PANTOPRAZOLE 40 MG TABLET PO (08:12)
[2025-01-11] MEDS: DOCUSATE SODIUM 100 MG CAPSULE PO (08:12)
[2025-01-11] MEDS: POTASSIUM CHLORIDE 20 MEQ PACKET (FOR LIQUID) 40 MEQ PO (08:20)
[2025-01-11 11:14] LABS: IFOB Positive Control Positive; Immunochemical Fecal Occult Bl Positive (N)
[2025-01-11] MEDS: FLUTICASONE/UMECLIDIN/VILANTER 100-62.5-25 MCG ELLIPTA 1 PUFF INHALATION (14:43)
[2025-01-11] MEDS: ATORVASTATIN 40 MG TABLET PO (17:19)
[2025-01-12] VITALS (17 sets, daily range): BP systolic 121–151; BP diastolic 46–53; PULSE 85–889; RESP 16–20; TEMP 36.4–36.9; O2SAT 92–97
[2025-01-12] MEDS: IPRATROPIUM 0.5 MG/ALBUTEROL SULFATE 2.5 MG AMPUL.NEB 3 ML INHALATION ×4 (02:26→20:25)
[2025-01-12 05:21] LABS: Anion Gap 8 mmol/L (4-12); Blood Urea Nitrogen 67 mg/dL (7-17); Calcium 9.5 mg/dL (8.4-10.2); Carbon Dioxide 34 mmol/L (22-30); Chloride 96 mmol/L (98-107); Estimated CRCL calculation 26 ml/min; Estimated Glomerular Filt Rate 38; Glucose 131 mg/dL (65-110); Potassium 3.5 mmol/L (3.4-5.0); Sodium 138 mmol/L (137-145)
[2025-01-12] MEDS: LEVOTHYROXINE SODIUM 125 MCG TABLET PO (06:41)
[2025-01-12] MEDS: DOCUSATE SODIUM 100 MG CAPSULE PO (07:59)
[2025-01-12] MEDS: ALPRAZolam (*CRX) 0.25 MG TABLET PO ×2 (07:59→18:34)
[2025-01-12] MEDS: PANTOPRAZOLE 40 MG TABLET PO (07:59)
[2025-01-12] MEDS: FUROSEMIDE 40 MG TABLET PO (07:59)
[2025-01-12] MEDS: POTASSIUM CHLORIDE 20 MEQ ER TABLET 40 MEQ PO (08:01)
[2025-01-12] MEDS: FLUTICASONE/UMECLIDIN/VILANTER 100-62.5-25 MCG ELLIPTA 1 PUFF INHALATION (08:30)
--- NOTE | 2025-01-12 08:39 | P.PNIM_ITS ---
Progress Note: A&P Assessment and Plan (1) Acute kidney injury: Code(s): N17.9 - Acute kidney failure, unspecified Status: Acute Assessment and Plan: Creatinine 1.61 and GFR 30. Previously 1.36 and GFR 37 on 11/17/2024. Possible UTI, however many epithelial cells which may indicate contamination. Started on ABX, follow culture. May be contributing to worsening renal function. BNP elevated, no known history of CHF. Has been reporting shortness of breath and cough. No echo on file, ordered. IV fluids: LR at 100 mL/hour x1 L, will proceed slowly due to possibility of new CHF. Trend renal function. Correct electrolytes as needed, monitor. 01/12- labs pending (2) Dizziness: Code(s): R42 - Dizziness and giddiness Status: Acute Assessment and Plan: Dizziness x2 days. History of vertigo and stroke. No change in dizziness with meclizine p.o. prior to arrival. Continue patient's home med: Meclizine 15 mg daily. fall precautions stable 01/12- short run o [facility] will order mg, k tsh was checked and normal -iron panel card consult placed (3) COPD (chronic obstructive pulmonary disease): Qualifiers: COPD type: COPD with acute lower respiratory infection Qualified Code(s): J44.0 - Chronic obstructive pulmonary disease with (acute) lower respiratory infection Code(s): J44.9 - Chronic obstructive pulmonary disease, unspecified Status: Acute Assessment and Plan: Wheezing and rhonchi upon arrival to the ED on 01/10. DuoNebs q.6 dejon. Will hold on abx and steroids, no increased O2 requirement and cough remains dry (no increased sputum production). stable, no sob monitor for now IS, out of bed TID and prn (4) Acute hypokalemia: Code(s): E87.6 - Hypokalemia Status: Acute Assessment and Plan: Potassium 2.9 upon arrival. Initial repletion with 40 p.o. of KCl. Plan for recheck this evening. Monitor k 3.3 will order daily replacement daily labs to monitor (5) Elevated brain natriuretic peptide (BNP) level: Code(s): R79.89 - Other specified abnormal findings of blood chemistry Status: Acute Assessment and Plan: BNP 1180 No echo on file, ordered. Monitor I&Os daily weights. CXR showed no evidence of pulmonary congestion. On Lasix 40 mg p.o. daily and metolazone 2.5 mg Q 48 hours - continue. Hold HCTZ 25 mg daily (believes her provider d/c'd this medication) Initially presented with rhonchi and wheezing on exam, does have history of COPD. Shortness of breath secondary to COPD versus new CHF? In favor of CHF. strict I/O (6) UTI (urinary tract infection): Qualifiers: Hematuria presence: without hematuria Urinary tract infection type: acute cystitis Qualified Code(s): N30.00 - Acute cystitis without hematuria Code(s): N39.0 - Urinary tract infection, site not specified Status: Suspected Assessment and Plan: UA showed 2+ leuks, 11-20 WBC, many epithelial cells. Contaminant versus infection. Check urine culture, follow. Started on ceftriaxone on 01/10. 01/12- continue antibiotics (7) Hypothyroidism: Qualifiers: Hypothyroidism type: unspecified Qualified Code(s): E03.9 - Hypothyroidism, unspecified Code(s): E03.9 - Hypothyroidism, unspecified Status: Chronic Assessment and Plan: Continue home Synthroid. TSH 1.77 on 01/10/2025. (8) Essential hypertension: Code(s): I10 - Essential (primary) hypertension Status: Chronic Assessment and Plan: Chronic, stable Continue home medications: Lasix, metolazone. Hold valsartan-hydrochlorothiazide, believes she was taken off this medication. Monitor. Plan Patient here for dizziness that has resolved with meclizine. Some intermittent dizziness with exertion. Continue meclizine. BNP elevated along with history of lower extremity edema treated with diuretic raises concerns for new CHF. UA also concerning for UTI, however may be contaminant, follow urine culture, started on ceftriaxone. Patient currently feeling improved. 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 Pt describes this as a haze and like the room was spinning. She has a history of vertigo for which she takes meclizine. Worsening shortness of breath - has COPD. Nonproductive cough. 2 weeks ago she was seen per her PCP who increased her diuretics - LE edema significantly improved. Patient saw her supervisor [employer] 3 days ago and was given a new prescription, she is unsure of the name - possibly anticoagulant. She denies associated nausea, vomiting, diarrhea, fe tara, chills, chest pain, syncope, or abdominal pain. She also denies dysuria, urinary frequency, urinary hesitancy, flank pain, or suprapubic pain. in ed: 97.30° F, HR 90, R 22, 133/92, and 96% on RA. ED workup showed: WBC 18.6, hemoglobin 8.5 (previously 9.4 on 11/17/2024), potassium 2.9, creatinine 1.61 and GFR 30 (previously 1.36 and GFR 37 on 11/17/2024), BNP 1180, and initial troponin was 0.030, normal TSH, UA suspicious for UTI) however many epithelial cells, may be contaminant). CXR showed clear lungs and a T11 compression deformity. Head CT showed no acute intracranial process and moderate scattered white matter hypoattenuation consistent with chronic small-vessel ischemic disease as well as a few scattered old lacunar infarcts in the bilateral periventricular white matter in caudate nuclei. Pt is seen and examined. She is doing ok this am, reports no pain. Had been having issues with balance and strength lately. 01/12- pt is seen and examined this am. labs ordered-pending. RN reported 10 beats vtach. pt was dizzy but no chest pain. up in the chair currently. no sob Review of Systems Review of Systems: All systems reviewed & are unremarkable except as noted in HPI and below Exam Narrative: bibasilar crackles, scattered wheezing. no peripheral edema. +heart murmur. Const: General: comfortable and no acute distress Other: , female, nontoxic appearance HENMT: Face/Nose/Sinus: Normal nares present Mouth: Yes moist mucous membranes Eyes: General: appearance normal, both eyes and all related structures Sclera: sclerae normal Pupils: Equal, round and reactive pupils present EOM: EOMs intact bilaterally Resp: Effort & Inspection: normal respiratory effort Other: bibasilar crackles, scattered wheezing. Cardio: Rate: regular rate Rhythm: regular rhythm Other: + murmur GI: Other: Abdomen soft, nondistended, nontender. Normoactive bowel sounds in all quadrants. Skin: General skin exam: normal color and no rashes or lesions noted Wounds: no wounds Neuro: Cranial nerves: Yes Equal, round and reactive pupils present Speech: normal speech Motor exam (neuro): 5/5 motor strength present throughout Sensory Exam: normal sensation Other: A&O x4. NIHSS 0. Extrem: General: normal to inspection Psych: Mental Status: mental status grossly normal Affect: normal affect Other: Good insight and judgment, pleasant Objective Data Vital Signs Vital Signs: Vital Signs - 24 hr 01/11/25 12:00 01/11/25 14:43 01/11/25 14:49 Temperature Pulse Rate 100 80 82 Respiratory Rate 16 16 Blood Pressure Pulse Oximetry Oxygen Delivery 01/11/25 14:56 01/11/25 16:00 01/11/25 20:00 Temperature 97.6 F Pulse Rate 91 92 Respiratory Rate 16 Blood Pressure 141/58 H Pulse Oximetry 94 Oxygen Delivery Room Air 01/11/25 20:00 01/11/25 20:27 01/11/25 20:29 Temperature Pulse Rate 93 70 Respiratory Rate 18 Blood Pressure Pulse Oximetry 93 Oxygen Delivery Room Air 01/11/25 20:35 01/11/25 20:51 01/12/25 00:00 Temperature 97.9 F Pulse Rate 72 90 90 Respiratory Rate 18 14 Blood Pressure 108/52 L Pulse Oximetry 94 Oxygen Delivery 01/12/25 02:27 01/12/25 02:33 01/12/25 04:00 Temperature Pulse Rate 96 92 109 H Respiratory Rate 18 18 Blood Pressure Pulse Oximetry Oxygen Delivery 01/12/25 05:30 01/12/25 08:35 01/12/25 08:35 Temperature 97.6 F Pulse Rate 91 89 Respiratory Rate 16 18 Blood Pressure 123/53 L Pulse Oximetry 92 94 Oxygen Delivery Room Air Intake/Output Intake/Output: Intake & Output 01/09/25 01/10/25 01/11/25 01/12/25 23:59 23:59 23:59 23:59 Intake Total 760 2770 400 Output Total 1 Balance 759 2770 400 Meds/Results Medications: Active Medications Generic Name Dose Route Start Last Admin Trade Name Freq PRN Reason Stop Dose Admin Acetaminophen 650 mg 01/10/25 08:17 Acetaminophen 325 Mg Tablet PO Q4H PRN Mild Pain (1-3) or Fever Albuterol/Ipratropium 3 ml 01/10/25 08:00 01/12/25 08:30 Ipratropium 0.5 Mg/Albuterol Sulfate 2.5 Mg Ampul.Neb 3 Ml INHALATION 3 ml Q6HRT DEJON Administration Alendronate Sodium 70 mg 01/13/25 06:30 Alendronate Sodium 70 Mg Tablet PO Mo@0630 DEJON Alprazolam 0.25 mg 01/10/25 14:06 01/12/25 07:59 Alprazolam (*Crx) 0.25 Mg Tablet PO 0.25 mg TID PRN Administration Anxiety Apixaban 5 mg 01/10/25 21:00 01/11/25 21:21 Apixaban 5 Mg Tablet PO 5 mg Q12HR DEJON Administration Atorvastatin Calcium 40 mg 01/10/25 18:00 01/11/25 17:19 Atorvastatin 40 Mg Tablet PO 40 mg QPM DEJON Administration Benzonatate 100 mg 01/10/25 14:06 Benzonatate 100 Mg Capsule PO TID PRN cough Docusate Sodium 100 mg 01/10/25 14:20 01/12/25 07:59 Docusate Sodium 100 Mg Capsule PO 100 mg DAILY DEJON Administration Fluticasone/Umeclidinium/Vilanterol 1 puff 01/11/25 09:00 01/12/25 08:30 Fluticasone/Umeclidin/Vilanter 100-62.5-25 Mcg Ellipta INHALATION 1 puff DAILY DEJON Administration Furosemide 40 mg 01/10/25 14:20 01/12/25 07:59 Furosemide 40 Mg Tablet PO 40 mg DAILY DEJON Administration Hydrochlorothiazide 25 mg 01/10/25 14:25 01/10/25 15:14 Hydrochlorothiazide 25 Mg Tablet PO Not Given DAILY DEJON Ceftriaxone Sodium 1 gm in 50 mls @ 100 mls/hr 01/10/25 15:00 01/11/25 17:48 Rocephin 1 Gm/Ns 50 Ml IVPB Infused Q24H DEJON Infusion Levothyroxine Sodium 125 mcg 01/11/25 06:30 01/12/25 06:41 Levothyroxine Sodium 125 Mcg Tablet PO 125 mcg DAILY@0630 DEJON Administration Meclizine HCl 25 mg 01/10/25 14:06 01/11/25 08:12 Meclizine Hcl 25 Mg Tablet PO 25 mg QID PRN Administration dizziness Meloxicam 15 mg 01/10/25 14:20 01/11/25 08:12 Meloxicam 7.5 Mg Tablet PO 15 mg DAILY DEJON Administration Metolazone 2.5 mg 01/11/25 09:00 01/11/25 08:12 Metolazone 2.5 Mg Tablet PO 2.5 mg Q48HR DEJON Administration Pantoprazole Sodium 40 mg 01/10/25 14:20 01/12/25 07:59 Pantoprazole 40 Mg Tablet PO 40 mg DAILY DEJON Administration Polyethylene Glycol 17 gm 01/10/25 14:06 Polyethylene Glycol 3350 17 Gm Powd.Pack PO DAILY PRN constipation Potassium Chloride 40 meq 01/12/25 09:00 01/12/25 08:01 Potassium Chloride 20 Meq Er Tablet PO 40 meq DAILY DEJON Administration Valsartan 160 mg 01/10/25 14:20 01/10/25 15:14 Valsartan 160 Mg Tablet PO Not Given DAILY DEJON Vitamin D 2,000 units 01/10/25 14:20 01/11/25 08:12 Cholecalciferol 1,000 Units Tablet PO 2,000 units DAILY DEJON Administration Radiology Results: ITS Impressions Chest X-Ray 01/10/25 06:32 Impression: Clear lungs. T11 compression deformity. Head CT 01/10/25 08:33 IMPRESSION: 1. No acute intracranial process. 2. 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 Labs Labs: Laboratory Results - last 24 hr 01/11/25 01/12/25 10:57 04:37 Sodium 138 Potassium 3.5 Chloride 96 L Carbon Dioxide 34 H Anion Gap 8 BUN 67 H Creatinine 1.33 H Estim Creat Clear Calc 26 Estimated GFR 38 L Glucose 131 H Calcium 9.5 Stl Occult Blood (IFOB) Positive H Quality VTE Prophylaxis VTE prophylaxis: pharmacologic ordered
[2025-01-12] MEDS: MECLIZINE HCL 25 MG TABLET PO ×2 (10:42→18:34)
[2025-01-12] MEDS: APIXABAN 5 MG TABLET PO ×2 (10:42→20:54)
[2025-01-12] MEDS: CHOLECALCIFEROL 1,000 UNITS TABLET 2000 UNITS PO (10:42)
[2025-01-12] MEDS: MELOXICAM 7.5 MG TABLET 15 MG PO (10:44)
--- NOTE | 2025-01-12 10:58 | ECG_ITS ---
Test Date: 2025-01-12 12:02:50 Measurements Intervals [place] Rate: 86 P: 38 [place]: 161 QRS: 32 QRSD: 91 T: 33 QT: 358 QTc: 430 Interpretive Statements SINUS RHYTHM WITH OCCASIONAL SUPRAVENTRICULAR PREMATURE COMPLEXES NONSPECIFIC ST & T-WAVE ABNORMALITY Compared to ECG 01/10/2025 05:52:40 NO SIGNIFICANT CHANGES Electronically Signed On 01-14-2025 14:06:15 CDT by Carmina Brambila M.D.
[2025-01-12 11:17] LABS: Magnesium 1.6 mg/dL (1.6-2.3)
--- NOTE | 2025-01-12 13:21 | PM.CNCAR ---
Assessment and Plan Assessment and plan (1) Essential hypertension: Code(s): I10 - Essential (primary) hypertension Status: Chronic (2) Elevated brain natriuretic peptide (BNP) level: Code(s): R79.89 - Other specified abnormal findings of blood chemistry Status: Acute (3) Ventricular tachyarrhythmia: Code(s): I47.20 - Ventricular tachycardia, unspecified Status: Acute Plan Problem list: NSVT ----she has low potassium less than 3 at presentation which could be a cause Dizziness- known h/o 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; loop recorder in place On anticoagulation with Eliquis; loop recorder in place; pt thinks it is for a 'd fib' and not sure History of CVA History of left internal carotid artery complete occlusion Hypertension COPD Plan: I reviewed the telemetry and there are some episodes of NSVT but mostly artifact Trend troponin x3 TTE Recommend a stress test to evaluate for underlying CAD as cause for NSVT Check and replace electrolytes to keep K greater than 4 and Mg greater than 2 Continue diuresis with Lasix and metolazone at home dose Continue KCl supplements Continue valsartan and hydrochlorothiazide at home dose Continue statin She was recently started on Eliquis and pt think this is for 'd fib'. Pt has a loop recorder. Will obtain records from her outpatient [facility] in [facility] to establish diagnosis for recent Eliquis- if she has any a fib. 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 She reports dizziness for the past 2 days. She describes this as room spinning. She has a history of vertigo but the symptoms of dizziness are different than the usual vertigo symptoms and more disabling. She took meclizine which helped partial resolution of her symptoms. She continues to have some dizziness with exertion. She reports nonproductive cough and shortness of breath for the past 2 months. She has some shortness of breath due to COPD at baseline. She saw her PCP about 2 weeks ago who increased her diuretics which improved her lower extremity edema. She also saw her portable track crew chief about 3 days ago and was given a new prescription of Aliquis but is not sure for what. She thinks it is for a 'd fib'. No chest pain, palpitations, presyncope, syncope, orthopnea, PND. Patient had runs of NSVT and cardiology is consulted for further management. Workup: Hemoglobin: 7.3 WBC: 30 Creatinine: 1.33 Potassium: 2.9 Troponin: 0.030 BNP: 1180 EKG: Sinus rhythm with PACs CT head: 1. No acute intracranial process. 2. Moderate scattered white matter hypoattenuation consistent with chronic small vessel ischemic disease as well as a few scattered old lacunar infarcts in the bilateral Periventricular white matter and caudate nuclei. 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 CVA (cerebral vascular accident) (04/2024) Osteoporosis Essential hypertension GERD (gastroesophageal reflux disease) Hypothyroidism Emphysema/COPD Surgical History Surgical History Peripheral arterial disease with history of revascularization (~04/2024) Bilateral lower extremity stents Status post cataract extraction of both eyes with insertion of intraocular lens Status post open reduction with internal fixation of fracture Left patellar fracture History of loop recorder Status post urethral diverticulectomy History of appendectomy History of tonsillectomy and adenoidectomy History of bladder suspension procedure Family History Family History Sibling Asthma Father Diabetes mellitus Hypertension Social History Social History Social History: The patient been since 2023. She is a former smoker she smoked 2.5 packs of cigarettes per day but quit in 1993. She used to drink 3-4 alcoholic beverages a week in still will occasionally drink alcohol in moderation. She raised 5 children. 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 She still drives. She ambulates with a cane. Code status: Full code Surrogate decision maker: Meera Schultz (daughter) Smoking status: Former smoker Alcohol intake: former Substance use: never Do You Feel Safe in your Home?: Yes Lack of Transportation: No Lack of Food: Never True Current Housing: I Have Housing Concerned About Future Housing: No Difficulty Paying Gas/Electric Bills: No Difficulty Paying for Meds: No Currently Unemployed: No Education: High School Diploma/GED Difficulty w/ Childcare or Family Care: No Spiritual care concerns: No Meds Home Medications and Allergies Home Medications Medication Instructions Recorded Confirmed Type albuterol sulfate 2.5 mg/3 mL 2.5 mg inhalation Q4-6H PRN 10/26/24 01/10/25 History (0.083 %) solution for nebulization shortness of breath or wheezing albuterol sulfate 90 mcg/actuation 2 puff inhalation Q4-6H PRN 10/26/24 01/10/25 History aerosol inhaler shortness of breath or wheezing alendronate 70 mg tablet 70 mg PO WEEKLY 10/26/24 01/10/25 History aspirin 81 mg chewable tablet 81 mg PO DAILY 10/26/24 01/10/25 History atorvastatin 40 mg tablet 40 mg PO QPM 10/26/24 01/10/25 History benzonatate 100 mg capsule 100 mg PO TID PRN cough 10/26/24 01/10/25 History clopidogrel 75 mg tablet 75 mg PO DAILY 10/26/24 01/10/25 History levothyroxine 125 mcg tablet 125 mcg PO DAILY 10/26/24 01/10/25 History meclizine 25 mg tablet 25 mg PO QID PRN dizziness 10/26/24 01/10/25 History pantoprazole 40 mg tablet,delayed 40 mg PO DAILY 10/26/24 01/10/25 History release valsartan 160 1 tablet PO DAILY 10/26/24 01/10/25 History mg-hydrochlorothiazide 25 mg tablet alprazolam 0.25 mg tablet 0.25 mg PO TID PRN Anxiety #10 tabs 11/05/24 01/10/25 Rx citalopram 10 mg tablet (Celexa) 10 mg PO QAM #30 tabs 11/05/24 01/10/25 Rx acetaminophen 325 mg tablet 325 mg PO Q6H PRN pain 01/10/25 01/10/25 History (Tylenol) apixaban 5 mg tablet (Eliquis) 5 mg PO BID 01/10/25 01/10/25 History cholecalciferol (vitamin D3) 50 2,000 unit PO DAILY 01/10/25 01/10/25 History mcg (2,000 unit) capsule docusate sodium 100 mg capsule 100 mg PO DAILY 01/10/25 01/10/25 History fluticasone fur. 100 mcg-umeclid 1 inh inhalation DAILY 01/10/25 01/10/25 History 62.5 mcg-vilant 25 mcg inhalat.powder (Trelegy Ellipta) furosemide 40 mg tablet 40 mg PO DAILY 01/10/25 01/10/25 History ipratropium 0.5 mg-albuterol 3 mg 3 ml inhalation QID PRN shortness 01/10/25 01/10/25 History (2.5 mg base)/3 mL nebulization of breath or wheezing soln meloxicam 15 mg tablet 15 mg PO DAILY 01/10/25 01/10/25 History metolazone 2.5 mg tablet 2.5 mg PO .Q48HR 01/10/25 01/10/25 History polyethylene glycol 3350 17 gram 17 g PO DAILY PRN constipation 01/10/25 01/10/25 History oral powder packet (Powderlax) Allergies Allergy/AdvReac Type Severity Reaction Status Date / Time levofloxacin AdvReac Abdominal Verified 01/10/25 05:32 Pain Vital Signs Vital Signs - 24 hr 01/11/25 14:43 01/11/25 14:49 01/11/25 14:56 Temperature 36.4 C Pulse Rate 80 82 91 Respiratory Rate 16 16 16 Blood Pressure 141/58 H Pulse Oximetry 94 Oxygen Delivery Fraction of Inspired Oxygen 01/11/25 16:00 01/11/25 20:00 01/11/25 20:00 Temperature Pulse Rate 92 93 Respiratory Rate Blood Pressure Pulse Oximetry Oxygen Delivery Room Air Fraction of Inspired Oxygen 01/11/25 20:27 01/11/25 20:29 01/11/25 20:35 Temperature Pulse Rate 70 72 Respiratory Rate 18 18 Blood Pressure Pulse Oximetry 93 Oxygen Delivery Room Air Fraction of Inspired Oxygen 01/11/25 20:51 01/12/25 00:00 01/12/25 02:27 Temperature 36.6 C Pulse Rate 90 90 96 Respiratory Rate 14 18 Blood Pressure 108/52 L Pulse Oximetry 94 Oxygen Delivery Fraction of Inspired Oxygen 01/12/25 02:33 01/12/25 04:00 01/12/25 05:30 Temperature 36.4 C Pulse Rate 92 109 H 91 Respiratory Rate 18 16 Blood Pressure 123/53 L Pulse Oximetry 92 Oxygen Delivery Fraction of Inspired Oxygen 01/12/25 08:00 01/12/25 08:00 01/12/25 08:35 Temperature Pulse Rate 96 85 Respiratory Rate 18 Blood Pressure Pulse Oximetry 94 94 Oxygen Delivery Room Air Room Air Fraction of Inspired Oxygen 21 01/12/25 08:35 01/12/25 08:44 01/12/25 10:13 Temperature Pulse Rate 89 96 Respiratory Rate 18 18 Blood Pressure Pulse Oximetry Oxygen Delivery Room Air Fraction of Inspired Oxygen Exam Narrative: General: Alert oriented x3, no acute distress Neck: Supple, JVD + Chest: BL CTA no rales or rhonchi Cardiac: S1, S2 +, regular rate, regular rhythm, no murmurs or rubs Extremities: Bilateral lower extremity edema 1+, no skin rash Neurologic: Alert and oriented x3, no focal neurological deficits Results Labs and Meds 01/11/25 04:42 01/12/25 04:37 Lab results: Comprehensive Metabolic Panel 01/12/25 Range/Units 04:37 Sodium 138 (137-145) mmol/L Potassium 3.5 (3.4-5.0) mmol/L Chloride 96 L (98-107) mmol/L Carbon Dioxide 34 H (22-30) mmol/L BUN 67 H (7-17) mg/dL Creatinine 1.33 H (0.7-1.0) mg/dL Glucose 131 H (65-110) mg/dL Calcium 9.5 (8.4-10.2) mg/dL Intake and Output 01/11/25 01/12/25 01/12/25 23:59 07:59 15:59 Intake Total 690 400 240 Balance 690 400 240 Intake: IV 50 cefTRIAXone 1 GM/NS 50 ML 1 gm 50 In 50 ml @ 100 mls/hr IVPB Q24H [facility] Rx#:[id number] Oral 640 400 240 Other: # Unmeasured Voids 1 2 Patient Weight 01/12/25 23:59 Weight 73.4 kg
--- NOTE | 2025-01-12 13:48 | WPDGICN ---
Assessment and Plan Assessment and plan (1) Chronic anemia: Code(s): D64.9 - Anemia, unspecified Status: Acute Assessment and Plan: no overt gib only occult blood in stool patient has not had scopes but given advanced age she prefers to monitor will get anemia studies to see if REANNA, etc will reassess tomorrow if she would be willing to have scopes but I doubt it- she never had colonoscopy (2) Occult blood in stools: Code(s): R19.5 - Other fecal abnormalities Status: Acute Assessment and Plan: no overt gib monitor (3) Acute kidney injury: Code(s): N17.9 - Acute kidney failure, unspecified Status: Acute (4) Acute hypokalemia: Code(s): E87.6 - Hypokalemia Status: Acute Assessment and Plan: treated (5) Dizziness: Code(s): R42 - Dizziness and giddiness Status: Acute (6) Vertigo: Code(s): R42 - Dizziness and giddiness Status: Acute Assessment and Plan: chronic (7) Ventricular tachyarrhythmia: Code(s): I47.20 - Ventricular tachycardia, unspecified Status: Acute Assessment and Plan: hand glove cleaner on board probably from low k GI Consult Note Consult date/time: 01/12/25 13:48 Reason for consult: anemia, occult blood in stool HPI: Ghazal Valadez is a 84 year old female with history of vertigo, CVA, HTN, GERD, hypothyroidism, COPD, and 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 She describes vertigo as room spinning, took meclizine which some relief. She also complains of increased leg swelling and PCP about 2 weeks ago who increased her diuretics which improved her lower extremity edema. ED workup WBC 18.6, hemoglobin 8.5 (previously 9.4), potassium 2.9, creatinine 1.61 (previously 1.36on 11/17/2024), BNP 1180. CXR showed clear lungs and a T11 compression deformity. Head CT showed no acute intracranial. Never had colonoscopy but denies any overt gib, hospitalist ordered occult blood in stool as work up of anemia and was positive. Patient is not thrilled about getting scopes. Also had short run of VT evaluated by hand glove cleaner. Review of Systems Constitutional: Constitutional: Reports weakness Eyes: Eyes: Reports no additional eye complaints ENT: Comments: vertigo Cardiovascular: Cardiovascular: Reports lightheadedness Respiratory: Respiratory: Reports dyspnea on exertion Gastrointestinal: Gastrointestinal: Denies abdominal pain Genitourinary: Genitourinary: Denies dysuria Musculoskeletal: Musculoskeletal: Reports stiffness Integumentary/Breasts: Skin/Breast: Denies rash Neurologic: Reports vertigo FOR[facility]LY [facility], [facility] Past Medical History Medical History (Updated 01/12/25 @ 13:54 by Dominick Hutchison MD) Occult blood in stools Vertigo Chronic anemia Anxiety Common carotid artery stenosis (~04/2024) 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 CVA (cerebral vascular accident) (04/2024) Osteoporosis Essential hypertension GERD (gastroesophageal reflux disease) Hypothyroidism Emphysema/COPD Surgical History Surgical History Peripheral arterial disease with history of revascularization (~04/2024) Bilateral lower extremity stents Status post cataract extraction of both eyes with insertion of intraocular lens Status post open reduction with internal fixation of fracture Left patellar fracture History of loop recorder Status post urethral diverticulectomy History of appendectomy History of tonsillectomy and adenoidectomy History of bladder suspension procedure Family History Family History Sibling Asthma Father Diabetes mellitus Hypertension Social History Social History Social History: The patient been since 2023. She is a former smoker she smoked 2.5 packs of cigarettes per day but quit in 1993. She used to drink 3-4 alcoholic beverages a week in still will occasionally drink alcohol in moderation. She raised 5 children. 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 She still drives. She ambulates with a cane. Code status: Full code Surrogate decision maker: Meera Schultz (daughter) Smoking status: Former smoker Alcohol intake: former Substance use: never Do You Feel Safe in your Home?: Yes Lack of Transportation: No Lack of Food: Never True Current Housing: I Have Housing Concerned About Future Housing: No Difficulty Paying Gas/Electric Bills: No Difficulty Paying for Meds: No Currently Unemployed: No Education: High School Diploma/GED Difficulty w/ Childcare or Family Care: No Spiritual care concerns: No Meds Home Medications and Allergies Home Medications Medication Instructions Recorded Confirmed Type albuterol sulfate 2.5 mg/3 mL 2.5 mg inhalation Q4-6H PRN 10/26/24 01/10/25 History (0.083 %) solution for nebulization shortness of breath or wheezing albuterol sulfate 90 mcg/actuation 2 puff inhalation Q4-6H PRN 10/26/24 01/10/25 History aerosol inhaler shortness of breath or wheezing alendronate 70 mg tablet 70 mg PO WEEKLY 10/26/24 01/10/25 History aspirin 81 mg chewable tablet 81 mg PO DAILY 10/26/24 01/10/25 History atorvastatin 40 mg tablet 40 mg PO QPM 10/26/24 01/10/25 History benzonatate 100 mg capsule 100 mg PO TID PRN cough 10/26/24 01/10/25 History clopidogrel 75 mg tablet 75 mg PO DAILY 10/26/24 01/10/25 History levothyroxine 125 mcg tablet 125 mcg PO DAILY 10/26/24 01/10/25 History meclizine 25 mg tablet 25 mg PO QID PRN dizziness 10/26/24 01/10/25 History pantoprazole 40 mg tablet,delayed 40 mg PO DAILY 10/26/24 01/10/25 History release valsartan 160 1 tablet PO DAILY 10/26/24 01/10/25 History mg-hydrochlorothiazide 25 mg tablet alprazolam 0.25 mg tablet 0.25 mg PO TID PRN Anxiety #10 tabs 11/05/24 01/10/25 Rx citalopram 10 mg tablet (Celexa) 10 mg PO QAM #30 tabs 11/05/24 01/10/25 Rx acetaminophen 325 mg tablet 325 mg PO Q6H PRN pain 01/10/25 01/10/25 History (Tylenol) apixaban 5 mg tablet (Eliquis) 5 mg PO BID 01/10/25 01/10/25 History cholecalciferol (vitamin D3) 50 2,000 unit PO DAILY 01/10/25 01/10/25 History mcg (2,000 unit) capsule docusate sodium 100 mg capsule 100 mg PO DAILY 01/10/25 01/10/25 History fluticasone fur. 100 mcg-umeclid 1 inh inhalation DAILY 01/10/25 01/10/25 History 62.5 mcg-vilant 25 mcg inhalat.powder (Trelegy Ellipta) furosemide 40 mg tablet 40 mg PO DAILY 01/10/25 01/10/25 History ipratropium 0.5 mg-albuterol 3 mg 3 ml inhalation QID PRN shortness 01/10/25 01/10/25 History (2.5 mg base)/3 mL nebulization of breath or wheezing soln meloxicam 15 mg tablet 15 mg PO DAILY 01/10/25 01/10/25 History metolazone 2.5 mg tablet 2.5 mg PO .Q48HR 01/10/25 01/10/25 History polyethylene glycol 3350 17 gram 17 g PO DAILY PRN constipation 01/10/25 01/10/25 History oral powder packet (Powderlax) Allergies Allergy/AdvReac Type Severity Reaction Status Date / Time levofloxacin AdvReac Abdominal Verified 01/10/25 05:32 Pain Vital Signs Vital Signs - 24 hr 01/11/25 14:43 01/11/25 14:49 01/11/25 14:56 Temperature 97.6 F Pulse Rate 80 82 91 Respiratory Rate 16 16 16 Blood Pressure 141/58 H Pulse Oximetry 94 Oxygen Delivery Fraction of Inspired Oxygen 01/11/25 16:00 01/11/25 20:00 01/11/25 20:00 Temperature Pulse Rate 92 93 Respiratory Rate Blood Pressure Pulse Oximetry Oxygen Delivery Room Air Fraction of Inspired Oxygen 01/11/25 20:27 01/11/25 20:29 01/11/25 20:35 Temperature Pulse Rate 70 72 Respiratory Rate 18 18 Blood Pressure Pulse Oximetry 93 Oxygen Delivery Room Air Fraction of Inspired Oxygen 01/11/25 20:51 01/12/25 00:00 01/12/25 02:27 Temperature 97.9 F Pulse Rate 90 90 96 Respiratory Rate 14 18 Blood Pressure 108/52 L Pulse Oximetry 94 Oxygen Delivery Fraction of Inspired Oxygen 01/12/25 02:33 01/12/25 04:00 01/12/25 05:30 Temperature 97.6 F Pulse Rate 92 109 H 91 Respiratory Rate 18 16 Blood Pressure 123/53 L Pulse Oximetry 92 Oxygen Delivery Fraction of Inspired Oxygen 01/12/25 08:00 01/12/25 08:00 01/12/25 08:35 Temperature Pulse Rate 96 85 Respiratory Rate 18 Blood Pressure Pulse Oximetry 94 94 Oxygen Delivery Room Air Room Air Fraction of Inspired Oxygen 21 01/12/25 08:35 01/12/25 08:44 01/12/25 10:13 Temperature Pulse Rate 89 96 Respiratory Rate 18 18 Blood Pressure Pulse Oximetry Oxygen Delivery Room Air Fraction of Inspired Oxygen 01/12/25 13:37 Temperature Pulse Rate 88 Respiratory Rate 18 Blood Pressure Pulse Oximetry Oxygen Delivery Fraction of Inspired Oxygen Exam Const: General: comfortable and no acute distress HENMT: Face/Nose/Sinus: Normal nares present Mouth: Yes moist mucous membranes Eyes: General: appearance normal, both eyes and all related structures Sclera: sclerae normal Neck: Neck: supple Resp: Effort & Inspection: normal respiratory effort Other: bibasilar crackles, scattered wheezing. Cardio: Rate: regular rate Rhythm: regular rhythm GI: GI Palp: Yes Soft to palpation and No Tenderness to palpation present (GI) Auscultation: normal bowel sounds Skin: General skin exam: normal color and no rashes or lesions noted Neuro: Cranial nerves: Yes Equal, round and reactive pupils present Speech: normal speech Motor exam (neuro): 5/5 motor strength present throughout Extrem: General: normal to inspection Psych: Mental Status: mental status grossly normal Affect: normal affect Other: Good insight and judgment, pleasant Results Labs 01/11/25 04:42 01/12/25 04:37 Labs: BMP 01/12/25 04:37 Sodium 138 Potassium 3.5 Chloride 96 L Carbon Dioxide 34 H BUN 67 H Creatinine 1.33 H Glucose 131 H Calcium 9.5
[2025-01-12] MEDS: ATORVASTATIN 40 MG TABLET PO (18:34)
[2025-01-12] MEDS: CEFDINIR 300 MG CAPSULE PO (20:54)
[2025-01-13] VITALS (20 sets, daily range): BP systolic 116–126; BP diastolic 48–74; PULSE 81–104; RESP 18–22; TEMP 36.4–37.2; O2SAT 94–100
--- NOTE | 2025-01-13 | ECHO_ITS ---
Patient Info Name: Ghazal Valadez Age: 84 years : 1940 Gender: Female Ht: 62 in Wt: 173 lbs BSA: 1.88 m2 HR: 98 bpm BP: 122 / 48 mmHg Technical Quality: Good Exam Date: 01/13/2025 2:40 PM Exam Location: Echo Lab Patient Status: Inpatient Admit Date: 01/13/2025 Staff Ordering Physician: Saida Back Election Assistant: Vinita Cevallos RDCS Attending Provider: Toya Ferrer MD Referring Physician: Nazanin WISE; Exam Type: CA echo doppler color flow Study Info Indications - NSVT Complete two-dimensional, color flow and Doppler transthoracic echocardiogram is performed. Summary 1. Complete two-dimensional, color flow and Doppler transthoracic echocardiogram is performed. 2. Left ventricular chamber dimension is normal. 3. Left ventricular systolic function is normal, estimated at 65-70%. 4. There is moderately increased left ventricular wall thickness. 5. The left ventricular diastolic function is grade I diastolic dysfunction. 6. Right ventricular systolic function is normal. 7. Left atrial chamber dimension is severely enlarged. 8. Right atrial chamber dimension is mildly enlarged. 9. There is moderate to severe aortic valve stenosis with a peak velocity of 347 cm/s, mean gradient of 28 mmHg, and aortic valve area of 0.9 cm2. 10. There is mild aortic valve regurgitation. 11. The mitral valve has thickened leaflets. 12. The mitral valve annulus is severely calcified. 13. There is severe mitral valve stenosis. Mean gradient of 12mmHg. 14. There is mild mitral valve regurgitation. 15. There is mild tricuspid valve regurgitation. 16. There is small anterior pericardial effusion. Left Ventricle Left ventricular chamber dimension is normal. Left ventricular systolic function is normal, estimated at 65-70%. There is moderately increased left ventricular wall thickness. The left ventricular diastolic function is grade I diastolic dysfunction. Right Ventricle Right ventricular chamber dimension is normal. Right ventricular systolic function is normal. Left Atria Left atrial chamber dimension is severely enlarged. Right Atria Right atrial chamber dimension is mildly enlarged. Atrial Septum Intact interatrial septum visualized by color flow imaging. Aortic Valve The aortic valve is probable trileaflet. There is moderate to severe aortic valve stenosis with a peak velocity of 347 cm/s, mean gradient of 28 mmHg, and aortic valve area of 0.9 cm2. There is mild aortic valve regurgitation. There is moderate aortic valve calcification. Pulmonic Valve The pulmonic valve is not well visualized. There is trace pulmonic regurgitation. Mitral Valve The mitral valve has thickened leaflets. There is severe mitral valve stenosis. Mean gradient of 12mmHg. There is mild mitral valve regurgitation. The mitral valve annulus is severely calcified. Tricuspid Valve There is mild tricuspid valve regurgitation. Pericardium/Pleural There is small anterior pericardial effusion. Inferior Vena Cava Normal inferior vena cava with >50% collapse upon inspiration consistent with normal right atrial pressure, 3 mmHg. Aorta The aortic root size at the sinus of Valsalva is normal. Left Ventricular Outflow Tract Name Value Normal LVOT 2D LVOT Diameter 1.8 cm LVOT Doppler LVOT Peak Gradient 5 mmHg LVOT Mean Gradient 3 mmHg LVOT VTI 26 cm LVOT VTI/AV VTI Ratio 0.4 LVOT Stroke Volume 69 ml LVOT CO 13.7 l/min LVOT CI 7.3 l/min/m2 Pulmonic Valve Name Value Normal PV Doppler PV Peak Gradient 6 mmHg Mitral Valve Name Value Normal MV Doppler MV Peak Gradient 21 mmHg MV Mean Gradient 9 mmHg MV Decel [place] 411 cm/s2 MV PHT 115 ms MV Area (PHT) 1.9 cm2 4.0-5.0 MV Area (Cont Eq VTI) 1.0 cm2 MV Diastolic Function MV E Peak Velocity 163 cm/s MV A Peak Velocity 217 cm/s MV E/A 0.7 MV Decel Time 396 ms MV Annular TDI MV E/e' (Septal) 32.7 <=8.0 MV E/e' (Lateral) 52.4 <=8.0 MV E/e' (Average) 42.5 Tricuspid Valve Name Value Normal TV Regurgitation Doppler TR Peak Velocity 277 cm/s TR Peak Gradient 31 mmHg Estimated PAP/RSVP RA Pressure 3 mmHg <=5 PA Systolic Pressure 34 mmHg <36 RV Systolic Pressure 34 mmHg <36 Aorta Name Value Normal Ascending Aorta Ao Root Diameter (MM) 3.5 cm Ao Root Diam Index (MM) 1.9 cm/m2 Aortic Valve Name Value Normal AV Doppler AV Peak Velocity 347 cm/s AV Peak Gradient 47 mmHg AV Mean Gradient 28 mmHg AV VTI 73 cm AV Area (Cont Eq VTI) 0.9 cm2 >=3.0 AV Area (Cont Eq Jamshid) 0.9 cm2 AV Regurgitation 2D LVOT Area 2.6 cm2 AV Regurgitation Doppler AR Decel Time 2,410 ms AR Decel [place] 113 cm/s2 AR PHT 699 ms Ventricles Name Value Normal LV Dimensions 2D/MM IVS Diastolic Thickness (2D) 1.4 cm 0.6-1.0 LVID Diastole (2D) 3.6 cm 3.8-5.2 LVIW Diastolic Thickness (2D) 1.3 cm 0.6-0.9 LVID Systole (2D) 2.4 cm 2.2-3.5 LVOT Diameter 1.8 cm LV Mass (2D Cubed) 172.72 g 67.00-162.00 LV Mass Index (2D Cubed) 92 g/m2 43-95 Relative Wall Thickness (2D) 0.72 LV Fractional Shortening/Ejection Fraction 2D/MM LV Fractional Shortening (2D) 35 % 27-45 LV EF (2D Teicholz) 65 % 54-74 LV Diastolic Volume (4C MOD) 66 ml LV EF (4C MOD) 63 % LV Diastolic Volume (2C MOD) 88 ml LV EF (2C MOD) 74 % LV Diastolic Volume (BP MOD) 78 ml 46-106 LV Diastolic Volume Index (BP MOD) 41 ml/m2 29-61 LV Systolic Volume (BP MOD) 24 ml 14-42 LV Systolic Volume Index (BP MOD) 13 ml/m2 8-24 LV EF (BP MOD) 70 % 54-74 LV Diastolic Length (4C) 6.6 cm LV Systolic Length (4C) 5.4 cm LV Stroke Volume (4C MOD) 42 ml RV Dimensions 2D/MM RVID Diastole (2D) 3.3 cm 2.5-3.5 Atria Name Value Normal LA Dimensions LA Dimension (MM) 4.0 cm 2.7-3.8 LA Volume (4C A-L) 67 ml LA Volume (BP A-L) 92 ml RA Dimensions RA Area (4C) 16.0 cm2 <=18.0 Report Signatures
[2025-01-13] MEDS: IPRATROPIUM 0.5 MG/ALBUTEROL SULFATE 2.5 MG AMPUL.NEB 3 ML INHALATION ×4 (03:31→20:12)
[2025-01-13] MEDS: ACETAMINOPHEN 325 MG TABLET 650 MG PO (04:31)
[2025-01-13 05:31] LABS: Blood Urea Nitrogen 52 mg/dL (7-17)
[2025-01-13 05:32] LABS: Anion Gap 10 mmol/L (4-12); Calcium 9.1 mg/dL (8.4-10.2); Carbon Dioxide 27 mmol/L (22-30); Chloride 102 mmol/L (98-107); Estimated CRCL calculation 26 ml/min; Estimated Glomerular Filt Rate 38; Glucose 118 mg/dL (65-110); Iron 29 ug/dL (37-170); Potassium 3.9 mmol/L (3.4-5.0); Sodium 139 mmol/L (137-145)
[2025-01-13 05:40] LABS: Percent Iron Saturation 7 % (20-50)
[2025-01-13 06:37] LABS: Folic Acid 4.2 ng/mL (2.76->20)
[2025-01-13] MEDS: ALENDRONATE SODIUM 70 MG TABLET PO (06:38)
[2025-01-13] MEDS: LEVOTHYROXINE SODIUM 125 MCG TABLET PO (06:38)
[2025-01-13] MEDS: DOCUSATE SODIUM 100 MG CAPSULE PO (08:00)
[2025-01-13] MEDS: FUROSEMIDE 40 MG TABLET PO (08:00)
[2025-01-13] MEDS: APIXABAN 5 MG TABLET PO (08:00)
[2025-01-13] MEDS: CEFDINIR 300 MG CAPSULE PO ×2 (08:00→20:22)
[2025-01-13] MEDS: CHOLECALCIFEROL 1,000 UNITS TABLET 2000 UNITS PO (08:00)
[2025-01-13] MEDS: PANTOPRAZOLE 40 MG TABLET PO (08:00)
[2025-01-13] MEDS: POTASSIUM CHLORIDE 20 MEQ ER TABLET 40 MEQ PO (08:01)
[2025-01-13] MEDS: metOLazone 2.5 MG TABLET PO (08:01)
[2025-01-13] MEDS: MECLIZINE HCL 25 MG TABLET PO ×2 (08:01→17:33)
[2025-01-13] MEDS: MELOXICAM 7.5 MG TABLET 15 MG PO (08:01)
[2025-01-13] MEDS: ALPRAZolam (*CRX) 0.25 MG TABLET PO ×2 (08:03→17:33)
[2025-01-13 08:27] LABS: Mean Corpuscular HGB Conc 25.8 g/dl (32-36); Mean Corpuscular Volume 77.6 fl (80-100); Platelet Count Result 387 k/mm3 (150-375); Red Blood Count 3.35 M/mm3 (4.2-5.4); Red Cell Distribution Width 19.5 % (11.5-14.5); White Blood Count 18.5 K/mm3 (4.5-10.0)
[2025-01-13 08:33] LABS: Hemoglobin 6.7 g/dL (12.0-15.0)
[2025-01-13] MEDS: FLUTICASONE/UMECLIDIN/VILANTER 100-62.5-25 MCG ELLIPTA 1 PUFF INHALATION (08:47)
--- NOTE | 2025-01-13 08:50 | PM.IMPN ---
Progress Note: A&P Assessment and Plan (1) Acute kidney injury: Code(s): N17.9 - Acute kidney failure, unspecified Status: Acute Assessment and Plan: Creatinine 1.61 and GFR 30. Previously 1.36 and GFR 37 on 11/17/2024. Possible UTI, however many epithelial cells which may indicate contamination. Started on ABX, follow culture. May be contributing to worsening renal function. BNP elevated, no known history of CHF. Has been reporting shortness of breath and cough. No echo on file, ordered. IV fluids: LR at 100 mL/hour x1 L, will proceed slowly due to possibility of new CHF. Trend renal function. Correct electrolytes as needed, monitor. 01/12- labs pending (2) Dizziness: Code(s): R42 - Dizziness and giddiness Status: Acute Assessment and Plan: Dizziness x2 days. History of vertigo and stroke. No change in dizziness with meclizine p.o. prior to arrival. Continue patient's home med: Meclizine 15 mg daily. fall precautions stable 01/12- short run o [facility] will order mg, k tsh was checked and normal -iron panel card consult placed (3) COPD (chronic obstructive pulmonary disease): Qualifiers: COPD type: COPD with acute lower respiratory infection Qualified Code(s): J44.0 - Chronic obstructive pulmonary disease with (acute) lower respiratory infection Code(s): J44.9 - Chronic obstructive pulmonary disease, unspecified Status: Acute Assessment and Plan: Wheezing and rhonchi upon arrival to the ED on 01/10. DuoNebs q.6 rama. Will hold on abx and steroids, no increased O2 requirement and cough remains dry (no increased sputum production). stable, no sob monitor for now IS, out of bed TID and prn (4) Acute hypokalemia: Code(s): E87.6 - Hypokalemia Status: Acute Assessment and Plan: Potassium 2.9 upon arrival. Initial repletion with 40 p.o. of KCl. Plan for recheck this evening. Monitor k 3.3 will order daily replacement daily labs to monitor (5) Elevated brain natriuretic peptide (BNP) level: Code(s): R79.89 - Other specified abnormal findings of blood chemistry Status: Acute Assessment and Plan: BNP 1180 No echo on file, ordered. Monitor I&Os daily weights. CXR showed no evidence of pulmonary congestion. On Lasix 40 mg p.o. daily and metolazone 2.5 mg Q 48 hours - continue. Hold HCTZ 25 mg daily (believes her provider d/c'd this medication) Initially presented with rhonchi and wheezing on exam, does have history of COPD. Shortness of breath secondary to COPD versus new CHF? In favor of CHF. strict I/O (6) UTI (urinary tract infection): Qualifiers: Hematuria presence: without hematuria Urinary tract infection type: acute cystitis Qualified Code(s): N30.00 - Acute cystitis without hematuria Code(s): N39.0 - Urinary tract infection, site not specified Status: Suspected Assessment and Plan: UA showed 2+ leuks, 11-20 WBC, many epithelial cells. Contaminant versus infection. Check urine culture, follow. Started on ceftriaxone on 01/10. 01/12- continue antibiotics-downgrade to po (7) Hypothyroidism: Qualifiers: Hypothyroidism type: unspecified Qualified Code(s): E03.9 - Hypothyroidism, unspecified Code(s): E03.9 - Hypothyroidism, unspecified Status: Chronic Assessment and Plan: Continue home Synthroid. TSH 1.77 on 01/10/2025. (8) Essential hypertension: Code(s): I10 - Essential (primary) hypertension Status: Chronic Assessment and Plan: Chronic, stable Continue home medications: Lasix, metolazone. Hold valsartan-hydrochlorothiazide, believes she was taken off this medication. Monitor. (9) Chronic anemia: Code(s): D64.9 - Anemia, unspecified Status: Acute Assessment and Plan: hg dropped to 6.7/19.4 this am will hold eliquis for now type/screen and 1 unit if PRBC ordered Iron studies ordered:iron 29, %satur 7, tibc 404 will order replacement gi is following- no acute interventions (10) Occult blood in stools: Code(s): R19.5 - Other fecal abnormalities Status: Acute Assessment and Plan: GI consulted Plan Patient here for dizziness that has resolved with meclizine. Some intermittent dizziness with exertion. Continue meclizine. BNP elevated along with history of lower extremity edema treated with diuretic raises concerns for new CHF. UA also concerning for UTI, however may be contaminant, follow urine culture, started on ceftriaxone. Patient currently feeling improved. 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 Pt describes this as a haze and like the room was spinning. She has a history of vertigo for which she takes meclizine. Worsening shortness of breath - has COPD. Nonproductive cough. 2 weeks ago she was seen per her PCP who increased her diuretics - LE edema significantly improved. Patient saw her psychological operations specialist 3 days ago and was given a new prescription, she is unsure of the name - possibly anticoagulant. She denies associated nausea, vomiting, diarrhea, fever, chills, chest pain, syncope, or abdominal pain. She also denies dysuria, urinary frequency, urinary hesitancy, flank pain, or suprapubic pain. in ed: 97.30° F, HR 90, R 22, 133/92, and 96% on RA. ED workup showed: WBC 18.6, hemoglobin 8.5 (previously 9.4 on 11/17/2024), potassium 2.9, creatinine 1.61 and GFR 30 (previously 1.36 and GFR 37 on 11/17/2024), BNP 1180, and initial troponin was 0.030, normal TSH, UA suspicious for UTI) however many epithelial cells, may be contaminant). CXR showed clear lungs and a T11 compression deformity. Head CT showed no acute intracranial process and moderate scattered white matter hypoattenuation consistent with chronic small-vessel ischemic disease as well as a few scattered old lacunar infarcts in the bilateral periventricular white matter in caudate nuclei. Pt is seen and examined. She is doing ok this am, reports no pain. Had been having issues with balance and strength lately. 01/12- pt is seen and examined this am. labs ordered-pending. RN reported 10 beats vtach. pt was dizzy but no chest pain. up in the chair currently. no sob. 01/13 hg dropped to 6.7 c/o feeling dizzy but no chest pain, no sob at the time of exam Review of Systems Review of Systems: All systems reviewed & are unremarkable except as noted in HPI and below Exam Narrative: bibasilar crackles, scattered wheezing. no peripheral edema. +heart murmur. Const: General: comfortable and no acute distress Other: , female, nontoxic appearance HENMT: Face/Nose/Sinus: Normal nares present Mouth: Yes moist mucous membranes Eyes: General: appearance normal, both eyes and all related structures Sclera: sclerae normal Pupils: Equal, round and reactive pupils present EOM: EOMs intact bilaterally Resp: Effort & Inspection: normal respiratory effort Other: bibasilar crackles, scattered wheezing. Cardio: Rate: regular rate Rhythm: regular rhythm Other: + murmur GI: Other: Abdomen soft, nondistended, nontender. Normoactive bowel sounds in all quadrants. Skin: General skin exam: normal color and no rashes or lesions noted Wounds: no wounds Neuro: Cranial nerves: Yes Equal, round and reactive pupils present Speech: normal speech Motor exam (neuro): 5/5 motor strength present throughout Sensory Exam: normal sensation Other: A&O x4. NIHSS 0. Extrem: General: normal to inspection Psych: Mental Status: mental status grossly normal Affect: normal affect Other: Good insight and judgment, pleasant Objective Data Vital Signs Vital Signs: Vital Signs - 24 hr 01/12/25 10:13 01/12/25 12:00 01/12/25 13:37 Temperature Pulse Rate 889 H 88 Respiratory Rate 18 Blood Pressure Pulse Oximetry Oxygen Delivery Room Air 01/12/25 13:46 01/12/25 14:00 01/12/25 16:00 Temperature 98.5 F Pulse Rate 88 85 98 Respiratory Rate 18 18 Blood Pressure 121/48 L Pulse Oximetry 96 Oxygen Delivery 01/12/25 19:48 01/12/25 20:00 01/12/25 20:00 Temperature 97.7 F Pulse Rate 96 90 Respiratory Rate 20 Blood Pressure 151/46 H Pulse Oximetry 97 Oxygen Delivery Room Air 01/12/25 20:25 01/12/25 20:34 01/13/25 00:00 Temperature Pulse Rate 88 89 96 Respiratory Rate 16 16 Blood Pressure Pulse Oximetry Oxygen Delivery 01/13/25 03:51 01/13/25 04:00 01/13/25 08:48 Temperature 97.6 F Pulse Rate 95 100 Respiratory Rate 20 Blood Pressure 122/48 L Pulse Oximetry 100 100 Oxygen Delivery Room Air 01/13/25 08:48 Temperature Pulse Rate 81 Respiratory Rate 20 Blood Pressure Pulse Oximetry Oxygen Delivery Intake/Output Intake/Output: Intake & Output 01/10/25 01/11/25 01/12/25 01/13/25 23:59 23:59 23:59 23:59 Intake Total 760 2770 1360 390 Output Total 1 Balance 759 2770 1360 390 Meds/Results Medications: Active Medications Generic Name Dose Route Start Last Admin Trade Name Freq PRN Reason Stop Dose Admin Acetaminophen 650 mg 01/10/25 08:17 01/13/25 04:31 Acetaminophen 325 Mg Tablet PO 650 mg Q4H PRN Administration Mild Pain (1-3) or Fever Albuterol/Ipratropium 3 ml 01/10/25 08:00 01/13/25 08:47 Ipratropium 0.5 Mg/Albuterol Sulfate 2.5 Mg Ampul.Neb 3 Ml INHALATION 3 ml Q6HRT RAMA Administration Alendronate Sodium 70 mg 01/13/25 06:30 01/13/25 06:38 Alendronate Sodium 70 Mg Tablet PO 70 mg Mo@0630 RAMA Administration Alprazolam 0.25 mg 01/10/25 14:06 01/13/25 08:03 Alprazolam (*Crx) 0.25 Mg Tablet PO 0.25 mg TID PRN Administration Anxiety Apixaban 5 mg 01/10/25 21:00 01/13/25 08:00 Apixaban 5 Mg Tablet PO 5 mg Q12HR RAMA Administration Atorvastatin Calcium 40 mg 01/10/25 18:00 01/12/25 18:34 Atorvastatin 40 Mg Tablet PO 40 mg QPM RAMA Administration Benzonatate 100 mg 01/10/25 14:06 Benzonatate 100 Mg Capsule PO TID PRN cough Cefdinir 300 mg 01/12/25 21:00 01/13/25 08:00 Cefdinir 300 Mg Capsule PO 300 mg Q12HR RAMA Administration Docusate Sodium 100 mg 01/10/25 14:20 01/13/25 08:00 Docusate Sodium 100 Mg Capsule PO 100 mg DAILY RAMA Administration Ferrous Sulfate 142 mg 01/13/25 08:05 Ferrous Sulfate Dried 142 Mg Tabcr PO DAILY@0800 RAMA Fluticasone/Umeclidinium/Vilanterol 1 puff 01/11/25 09:00 01/13/25 08:47 Fluticasone/Umeclidin/Vilanter 100-62.5-25 Mcg Ellipta INHALATION 1 puff DAILY RAMA Administration Furosemide 40 mg 01/10/25 14:20 01/13/25 08:00 Furosemide 40 Mg Tablet PO 40 mg DAILY RAMA Administration Hydrochlorothiazide 25 mg 01/10/25 14:25 01/10/25 15:14 Hydrochlorothiazide 25 Mg Tablet PO Not Given DAILY RAMA Levothyroxine Sodium 125 mcg 01/11/25 06:30 01/13/25 06:38 Levothyroxine Sodium 125 Mcg Tablet PO 125 mcg DAILY@0630 RAMA Administration Meclizine HCl 25 mg 01/10/25 14:06 01/13/25 08:01 Meclizine Hcl 25 Mg Tablet PO 25 mg QID PRN Administration dizziness Meloxicam 15 mg 01/10/25 14:20 01/13/25 08:01 Meloxicam 7.5 Mg Tablet PO 15 mg DAILY RAMA Administration Metolazone 2.5 mg 01/11/25 09:00 01/13/25 08:01 Metolazone 2.5 Mg Tablet PO 2.5 mg Q48HR RAMA Administration Pantoprazole Sodium 40 mg 01/10/25 14:20 01/13/25 08:00 Pantoprazole 40 Mg Tablet PO 40 mg DAILY RAMA Administration Polyethylene Glycol 17 gm 01/10/25 14:06 Polyethylene Glycol 3350 17 Gm Powd.Pack PO DAILY PRN constipation Potassium Chloride 40 meq 01/12/25 09:00 01/13/25 08:01 Potassium Chloride 20 Meq Er Tablet PO 40 meq DAILY RAMA Administration Valsartan 160 mg 01/10/25 14:20 01/10/25 15:14 Valsartan 160 Mg Tablet PO Not Given DAILY RAMA Vitamin D 2,000 units 01/10/25 14:20 01/13/25 08:00 Cholecalciferol 1,000 Units Tablet PO 2,000 units DAILY RAMA Administration Radiology Results: ITS Impressions Chest X-Ray 01/10/25 06:32 Impression: Clear lungs. T11 compression deformity. Head CT 01/10/25 08:33 IMPRESSION: 1. No acute intracranial process. 2. 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 Labs Labs: Laboratory Results - last 24 hr 01/12/25 01/13/25 04:37 04:37 WBC 18.5 H RBC 3.35 L Hgb 6.7 L* Hct 26.0 L MCV 77.6 L D MCH 20.0 L MCHC 25.8 L RDW 19.5 H Plt Count 387 H MPV 10.0 Sodium 139 Potassium 3.9 Chloride 102 Carbon Dioxide 27 Anion Gap 10 BUN 52 H D Creatinine 1.34 H Estim Creat Clear Calc 26 Estimated GFR 38 L Glucose 118 H Calcium 9.1 Magnesium 1.6 Iron 29 L TIBC 404 % Saturation 7 L Ferritin 58.20 Vitamin B12 424.0 Folate 4.2 Quality VTE Prophylaxis VTE prophylaxis: mechanical ordered
[2025-01-13] MEDS: FERROUS SULFATE DRIED 142 MG TABCR PO (15:03)
--- NOTE | 2025-01-13 17:32 | WPDGIPROGNO ---
Progress Note: A&P Assessment and Plan (1) Chronic anemia: Code(s): D64.9 - Anemia, unspecified Status: Acute Assessment and Plan: noted h/h dropped but no overt gib continue with ppi keep hgb>7 patient prefers conservative treatment since no signs of obvious bleeding but will reassess tomorrow again (2) Occult blood in stools: Code(s): R19.5 - Other fecal abnormalities Status: Acute (3) Vertigo: Code(s): R42 - Dizziness and giddiness Status: Acute Subjective Date/time seen: 01/13/25 17:32 Interval history: no vertigo today no overt gib Review of Systems Review of Systems: All systems reviewed & are unremarkable except as noted in HPI and below Exam Const: General: comfortable and no acute distress HENMT: Face/Nose/Sinus: Normal nares present Mouth: Yes moist mucous membranes Eyes: General: appearance normal, both eyes and all related structures Sclera: sclerae normal Neck: Neck: supple Resp: Effort & Inspection: normal respiratory effort Other: bibasilar crackles, scattered wheezing. Cardio: Rate: regular rate Rhythm: regular rhythm GI: GI Palp: Yes Soft to palpation and No Tenderness to palpation present (GI) Auscultation: normal bowel sounds Skin: General skin exam: normal color and no rashes or lesions noted Neuro: Cranial nerves: Yes Equal, round and reactive pupils present Speech: normal speech Motor exam (neuro): 5/5 motor strength present throughout Extrem: General: normal to inspection Psych: Mental Status: mental status grossly normal Affect: normal affect Other: Good insight and judgment, pleasant Objective Data Vital Signs Vital Signs: Vital Signs - 24 hr 01/12/25 19:48 01/12/25 20:00 01/12/25 20:00 Temperature 97.7 F Pulse Rate 96 90 Respiratory Rate 20 Blood Pressure 151/46 H Pulse Oximetry 97 Oxygen Delivery Room Air Fraction of Inspired Oxygen 01/12/25 20:25 01/12/25 20:34 01/13/25 00:00 Temperature Pulse Rate 88 89 96 Respiratory Rate 16 16 Blood Pressure Pulse Oximetry Oxygen Delivery Fraction of Inspired Oxygen 01/13/25 03:51 01/13/25 04:00 01/13/25 08:00 Temperature 97.6 F Pulse Rate 95 100 98 Respiratory Rate 20 18 Blood Pressure 122/48 L Pulse Oximetry 100 98 Oxygen Delivery Room Air Fraction of Inspired Oxygen 21 01/13/25 08:00 01/13/25 08:48 01/13/25 08:48 Temperature Pulse Rate 98 81 Respiratory Rate 20 Blood Pressure Pulse Oximetry 100 Oxygen Delivery Room Air Fraction of Inspired Oxygen 01/13/25 08:57 01/13/25 08:57 01/13/25 11:20 Temperature 98.5 F Pulse Rate 84 93 Respiratory Rate 20 22 H Blood Pressure 126/74 Pulse Oximetry 96 Oxygen Delivery Room Air Fraction of Inspired Oxygen 01/13/25 11:24 01/13/25 11:35 01/13/25 12:00 Temperature 98.9 F 97.5 F L Pulse Rate 98 90 93 Respiratory Rate 18 18 Blood Pressure 116/72 116/64 Pulse Oximetry 98 94 Oxygen Delivery Fraction of Inspired Oxygen 01/13/25 12:47 01/13/25 13:17 01/13/25 13:51 Temperature 98.7 F 98.8 F Pulse Rate 91 98 82 Respiratory Rate 18 18 20 Blood Pressure 122/48 L 116/50 L Pulse Oximetry 100 98 Oxygen Delivery Fraction of Inspired Oxygen 01/13/25 14:00 01/13/25 14:14 01/13/25 16:00 Temperature 97.5 F L Pulse Rate 92 86 103 H Respiratory Rate 18 20 Blood Pressure 120/71 Pulse Oximetry 96 Oxygen Delivery Fraction of Inspired Oxygen Intake/Output Intake/Output: Intake & Output 01/10/25 01/11/25 01/12/25 01/13/25 23:59 23:59 23:59 23:59 Intake Total 760 2770 1360 1100 Output Total 1 Balance 759 2770 1360 1100 Meds/Results Medications: Active Medications Generic Name Dose Route Start Last Admin Trade Name Freq PRN Reason Stop Dose Admin Acetaminophen 650 mg 01/10/25 08:17 01/13/25 04:31 Acetaminophen 325 Mg Tablet PO 650 mg Q4H PRN Administration Mild Pain (1-3) or Fever Albuterol/Ipratropium 3 ml 01/10/25 08:00 01/13/25 13:51 Ipratropium 0.5 Mg/Albuterol Sulfate 2.5 Mg Ampul.Neb 3 Ml INHALATION 3 ml Q6HRT DEJON Administration Alendronate Sodium 70 mg 01/13/25 06:30 01/13/25 06:38 Alendronate Sodium 70 Mg Tablet PO 70 mg Mo@0630 DEJON Administration Alprazolam 0.25 mg 01/10/25 14:06 01/13/25 08:03 Alprazolam (*Crx) 0.25 Mg Tablet PO 0.25 mg TID PRN Administration Anxiety Apixaban 5 mg 01/10/25 21:00 01/13/25 08:00 Apixaban 5 Mg Tablet PO 5 mg Q12HR DEJON Administration Atorvastatin Calcium 40 mg 01/10/25 18:00 01/12/25 18:34 Atorvastatin 40 Mg Tablet PO 40 mg QPM DEJON Administration Benzonatate 100 mg 01/10/25 14:06 Benzonatate 100 Mg Capsule PO TID PRN cough Cefdinir 300 mg 01/12/25 21:00 01/13/25 08:00 Cefdinir 300 Mg Capsule PO 300 mg Q12HR DEJON Administration Docusate Sodium 100 mg 01/10/25 14:20 01/13/25 08:00 Docusate Sodium 100 Mg Capsule PO 100 mg DAILY DEJON Administration Ferrous Sulfate 142 mg 01/13/25 08:05 01/13/25 15:03 Ferrous Sulfate Dried 142 Mg Tabcr PO 142 mg DAILY@0800 DEJON Administration Fluticasone/Umeclidinium/Vilanterol 1 puff 01/11/25 09:00 01/13/25 08:47 Fluticasone/Umeclidin/Vilanter 100-62.5-25 Mcg Ellipta INHALATION 1 puff DAILY DEJON Administration Furosemide 40 mg 01/10/25 14:20 01/13/25 08:00 Furosemide 40 Mg Tablet PO 40 mg DAILY DEJON Administration Hydrochlorothiazide 25 mg 01/10/25 14:25 01/10/25 15:14 Hydrochlorothiazide 25 Mg Tablet PO Not Given DAILY DEJON Levothyroxine Sodium 125 mcg 01/11/25 06:30 01/13/25 06:38 Levothyroxine Sodium 125 Mcg Tablet PO 125 mcg DAILY@0630 DEJON Administration Meclizine HCl 25 mg 01/10/25 14:06 01/13/25 08:01 Meclizine Hcl 25 Mg Tablet PO 25 mg QID PRN Administration dizziness Meloxicam 15 mg 01/10/25 14:20 01/13/25 08:01 Meloxicam 7.5 Mg Tablet PO 15 mg DAILY DEJON Administration Metolazone 2.5 mg 01/11/25 09:00 01/13/25 08:01 Metolazone 2.5 Mg Tablet PO 2.5 mg Q48HR DEJON Administration Pantoprazole Sodium 40 mg 01/10/25 14:20 01/13/25 08:00 Pantoprazole 40 Mg Tablet PO 40 mg DAILY DEJON Administration Perflutren Lipid Microsphere 0 ml 01/13/25 09:34 Perflutren Lipid Microspheres 1.5 Ml Vial Diluted To 10 Ml Total Volume IV PUSH 01/16/25 09:34 ONCE PRN adequate visualization Protocol Polyethylene Glycol 17 gm 01/10/25 14:06 Polyethylene Glycol 3350 17 Gm Powd.Pack PO DAILY PRN constipation Potassium Chloride 40 meq 01/12/25 09:00 01/13/25 08:01 Potassium Chloride 20 Meq Er Tablet PO 40 meq DAILY DEJON Administration Valsartan 160 mg 01/10/25 14:20 01/10/25 15:14 Valsartan 160 Mg Tablet PO Not Given DAILY DEJON Vitamin D 2,000 units 01/10/25 14:20 01/13/25 08:00 Cholecalciferol 1,000 Units Tablet PO 2,000 units DAILY DEJON Administration Radiology Results: ITS Impressions Chest X-Ray 01/10/25 06:32 Impression: Clear lungs. T11 compression deformity. Head CT 01/10/25 08:33 IMPRESSION: 1. No acute intracranial process. 2. 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 Labs Labs: Laboratory Results - last 24 hr 01/13/25 01/13/25 04:37 09:31 WBC 18.5 H RBC 3.35 L Hgb 6.7 L* Hct 26.0 L MCV 77.6 L D MCH 20.0 L MCHC 25.8 L RDW 19.5 H Plt Count 387 H MPV 10.0 Sodium 139 Potassium 3.9 Chloride 102 Carbon Dioxide 27 Anion Gap 10 BUN 52 H D Creatinine 1.34 H Estim Creat Clear Calc 26 Estimated GFR 38 L Glucose 118 H Calcium 9.1 Iron 29 L TIBC 404 % Saturation 7 L Ferritin 58.20 Vitamin B12 424.0 Folate 4.2 Blood Type O Positive Antibody Screen Negative Crossmatch See Detail
[2025-01-13] MEDS: ATORVASTATIN 40 MG TABLET PO (17:33)
[2025-01-13] MEDS: traZODone HCL 50 MG TABLET PO (20:35)
[2025-01-14] VITALS (15 sets, daily range): BP systolic 110–162; BP diastolic 51–79; PULSE 80–110; RESP 18–20; TEMP 36.5–36.9; O2SAT 91–97
[2025-01-14] MEDS: IPRATROPIUM 0.5 MG/ALBUTEROL SULFATE 2.5 MG AMPUL.NEB 3 ML INHALATION ×3 (02:08→20:26)
[2025-01-14 04:57] LABS: Hematocrit 31.3 % (37.0-47.0); Hemoglobin 8.5 g/dL (12.0-15.0); Mean Corpuscular HGB Conc 27.2 g/dl (32-36); Mean Corpuscular Hemoglobin 20.9 pg (26-34); Mean Corpuscular Volume 76.9 fl (80-100); Mean Platelet Volume 9.6 fl (7.4-10.4); Platelet Count Result 361 k/mm3 (150-375); Red Blood Count 4.07 M/mm3 (4.2-5.4); Red Cell Distribution Width 20.1 % (11.5-14.5)
[2025-01-14 05:21] LABS: Anion Gap 10 mmol/L (4-12); Blood Urea Nitrogen 41 mg/dL (7-17); Calcium 9.4 mg/dL (8.4-10.2); Carbon Dioxide 27 mmol/L (22-30); Chloride 100 mmol/L (98-107); Estimated CRCL calculation 30 ml/min; Estimated Glomerular Filt Rate 44; Glucose 117 mg/dL (65-110); Potassium 3.9 mmol/L (3.4-5.0); Sodium 137 mmol/L (137-145)
[2025-01-14] MEDS: LEVOTHYROXINE SODIUM 125 MCG TABLET PO (06:35)
--- NOTE | 2025-01-14 07:56 | P.PNIM_ITS ---
Progress Note: A&P Assessment and Plan (1) Acute kidney injury: Code(s): N17.9 - Acute kidney failure, unspecified Status: Acute Assessment and Plan: Creatinine 1.61 and GFR 30. Previously 1.36 and GFR 37 on 11/17/2024. Possible UTI, however many epithelial cells which may indicate contamination. Started on ABX, follow culture. May be contributing to worsening renal function. BNP elevated, no known history of CHF. Has been reporting shortness of breath and cough. No echo on file, ordered. IV fluids: LR at 100 mL/hour x1 L, will proceed slowly due to possibility of new CHF. Trend renal function. Correct electrolytes as needed, monitor. 01/12- labs pending (2) Dizziness: Code(s): R42 - Dizziness and giddiness Status: Acute Assessment and Plan: Dizziness x2 days. History of vertigo and stroke. No change in dizziness with meclizine p.o. prior to arrival. Continue patient's home med: Meclizine 15 mg daily. fall precautions stable 01/12- short run of vtach will order mg, k tsh was checked and normal -iron panel card consult placed 01/14-stable overall card on board no episodes of arrhythmias (3) COPD (chronic obstructive pulmonary disease): Qualifiers: COPD type: COPD with acute lower respiratory infection Qualified Code(s): J44.0 - Chronic obstructive pulmonary disease with (acute) lower respiratory infection Code(s): J44.9 - Chronic obstructive pulmonary disease, unspecified Status: Acute Assessment and Plan: Wheezing and rhonchi upon arrival to the ED on 01/10. DuoNebs q.6 rama. Will hold on abx and steroids, no increased O2 requirement and cough remains dry (no increased sputum production). stable, no sob monitor for now IS, out of bed TID and prn (4) Acute hypokalemia: Code(s): E87.6 - Hypokalemia Status: Acute Assessment and Plan: Potassium 2.9 upon arrival. Initial repletion with 40 p.o. of KCl. Plan for recheck this evening. Monitor k 3.3 will order daily replacement daily labs to monitor k 3.5 on 01/14- continue oral replacement (5) Elevated brain natriuretic peptide (BNP) level: Code(s): R79.89 - Other specified abnormal findings of blood chemistry Status: Acute Assessment and Plan: BNP 1180 No echo on file, ordered. Monitor I&Os daily weights. CXR showed no evidence of pulmonary congestion. On Lasix 40 mg p.o. daily and metolazone 2.5 mg Q 48 hours - continue. Hold HCTZ 25 mg daily (believes her provider d/c'd this medication) Initially presented with rhonchi and wheezing on exam, does have history of COPD. Shortness of breath secondary to COPD versus new CHF? In favor of CHF. strict I/O (6) UTI (urinary tract infection): Qualifiers: Hematuria presence: without hematuria Urinary tract infection type: acute cystitis Qualified Code(s): N30.00 - Acute cystitis without hematuria Code(s): N39.0 - Urinary tract infection, site not specified Status: Suspected Assessment and Plan: UA showed 2+ leuks, 11-20 WBC, many epithelial cells. Contaminant versus infection. Check urine culture, follow. Started on ceftriaxone on 01/10. 01/12- continue antibiotics-downgrade to po 01/14 cefdinir 300 mg bid (on 01/12) (7) Hypothyroidism: Qualifiers: Hypothyroidism type: unspecified Qualified Code(s): E03.9 - Hypothyroi dism, unspecified Code(s): E03.9 - Hypothyroidism, unspecified Status: Chronic Assessment and Plan: Continue home Synthroid. TSH 1.77 on 01/10/2025. (8) Essential hypertension: Code(s): I10 - Essential (primary) hypertension Status: Chronic Assessment and Plan: Chronic, stable Continue home medications: Lasix, metolazone. Hold valsartan-hydrochlorothiazide, believes she was taken off this medication. Monitor- 124/51 (9) Chronic anemia: Code(s): D64.9 - Anemia, unspecified Status: Acute Assessment and Plan: hg dropped to 6.7/19.4 this am will hold eliquis for now type/screen and 1 unit if PRBC ordered Iron studies ordered:iron 29, %satur 7, tibc 404 will order replacement gi is following- no acute interventions 01/14 hg stable-continue to trend (10) Occult blood in stools: Code(s): R19.5 - Other fecal abnormalities Status: Acute Assessment and Plan: GI consulted Plan Patient here for dizziness Some intermittent dizziness with exertion. Continue meclizine. BNP elevated along with history of lower extremity edema treated with diuretic raises concerns for new CHF. UA also concerning for UTI, however may be contaminant, follow urine culture, started on ceftriaxone. 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 01/14 pt is seen and examined. She is feeling a bit better today. no chest pain. cardiology and gi following Review of Systems Review of Systems: All systems reviewed & are unremarkable except as noted in HPI and below Exam Narrative: bibasilar crackles, scattered wheezing. no peripheral edema. +heart murmur. Const: General: comfortable and no acute distress Other: , female, nontoxic appearance HENMT: Face/Nose/Sinus: Normal nares present Mouth: Yes moist mucous membranes Eyes: General: appearance normal, both eyes and all related structures Sclera: sclerae normal Pupils: Equal, round and reactive pupils present EOM: EOMs intact bilaterally Resp: Effort & Inspection: normal respiratory effort Other: bibasilar crackles, scattered wheezing. Cardio: Rate: regular rate Rhythm: regular rhythm Other: + murmur GI: Other: Abdomen soft, nondistended, nontender. Normoactive bowel sounds in all quadrants. Skin: General skin exam: normal color and no rashes or lesions noted Wounds: no wounds Neuro: Cranial nerves: Yes Equal, round and reactive pupils present Speech: normal speech Motor exam (neuro): 5/5 motor strength present throughout Sensory Exam: normal sensation Other: A&O x4. NIHSS 0. Extrem: General: normal to inspection Psych: Mental Status: mental status grossly normal Affect: normal affect Other: Good insight and judgment, pleasant Objective Data Vital Signs Vital Signs: Vital Signs - 24 hr 01/13/25 08:00 01/13/25 08:00 01/13/25 08:48 Temperature Pulse Rate 98 98 Respiratory Rate 18 Blood Pressure Pulse Oximetry 98 100 Oxygen Delivery Room Air Room Air Fraction of Inspired Oxygen 21 01/13/25 08:48 01/13/25 08:57 01/13/25 08:57 Temperature Pulse Rate 81 84 Respiratory Rate 20 20 Blood Pressure Pulse Oximetry Oxygen Delivery Room Air Fraction of Inspired Oxygen 01/13/25 11:20 01/13/25 11:24 01/13/25 11:35 Temperature 98.5 F 98.9 F 97.5 F L Pulse Rate 93 98 90 Respiratory Rate 22 H 18 18 Blood Pressure 126/74 116/72 116/64 Pulse Oximetry 96 98 94 Oxygen Delivery Fraction of Inspired Oxygen 01/13/25 12:00 01/13/25 12:47 01/13/25 13:17 Temperature 98.7 F 98.8 F Pulse Rate 93 91 98 Respiratory Rate 18 18 Blood Pressure 122/48 L 116/50 L Pulse Oximetry 100 98 Oxygen Delivery Fraction of Inspired Oxygen 01/13/25 13:51 01/13/25 14:00 01/13/25 14:14 Temperature 97.5 F L Pulse Rate 82 92 86 Respiratory Rate 20 18 20 Blood Pressure 120/71 Pulse Oximetry 96 Oxygen Delivery Fraction of Inspired Oxygen 01/13/25 16:00 01/13/25 20:00 01/13/25 20:00 Temperature Pulse Rate 103 H 97 93 Respiratory Rate 20 Blood Pressure Pulse Oximetry 95 Oxygen Delivery Room Air Fraction of Inspired Oxygen 21 01/13/25 20:12 01/13/25 20:22 01/13/25 20:49 Temperature 97.7 F Pulse Rate 104 H 104 H 97 Respiratory Rate 18 18 20 Blood Pressure 120/57 L Pulse Oximetry 95 Oxygen Delivery Fraction of Inspired Oxygen 01/14/25 00:00 01/14/25 02:08 01/14/25 02:26 Temperature Pulse Rate 95 104 H 104 H Respiratory Rate 18 18 Blood Pressure Pulse Oximetry Oxygen Delivery Fraction of Inspired Oxygen 01/14/25 04:00 01/14/25 04:44 Temperature 97.7 F Pulse Rate 106 H 110 H Respiratory Rate 20 Blood Pressure 124/51 L Pulse Oximetry 94 Oxygen Delivery Fraction of Inspired Oxygen Intake/Output Intake/Output: Intake & Output 01/11/25 01/12/25 01/13/25 01/14/25 23:59 23:59 23:59 23:59 Intake Total 2770 1360 1620 240 Balance 2770 1360 1620 240 Meds/Results Medications: Active Medications Generic Name Dose Route Start Last Admin Trade Name Freq PRN Reason Stop Dose Admin Acetaminophen 650 mg 01/10/25 08:17 01/13/25 04:31 Acetaminophen 325 Mg Tablet PO 650 mg Q4H PRN Administration Mild Pain (1-3) or Fever Albuterol/Ipratropium 3 ml 01/10/25 08:00 01/14/25 02:08 Ipratropium 0.5 Mg/Albuterol Sulfate 2.5 Mg Ampul.Neb 3 Ml INHALATION 3 ml Q6HRT RAMA Administration Alendronate Sodium 70 mg 01/13/25 06:30 01/13/25 06:38 Alendronate Sodium 70 Mg Tablet PO 70 mg Mo@0630 RAMA Administration Alprazolam 0.25 mg 01/10/25 14:06 01/13/25 17:33 Alprazolam (*Crx) 0.25 Mg Tablet PO 0.25 mg TID PRN Administration Anxiety Apixaban 5 mg 01/10/25 21:00 01/13/25 08:00 Apixaban 5 Mg Tablet PO 5 mg Q12HR RAMA Administration Atorvastatin Calcium 40 mg 01/10/25 18:00 01/13/25 17:33 Atorvastatin 40 Mg Tablet PO 40 mg QPM RAMA Administration Benzonatate 100 mg 01/10/25 14:06 Benzonatate 100 Mg Capsule PO TID PRN cough Cefdinir 300 mg 01/12/25 21:00 01/13/25 20:22 Cefdinir 300 Mg Capsule PO 300 mg Q12HR RAMA Administration Docusate Sodium 100 mg 01/10/25 14:20 01/13/25 08:00 Docusate Sodium 100 Mg Capsule PO 100 mg DAILY RAMA Administration Ferrous Sulfate 142 mg 01/13/25 08:05 01/13/25 15:03 Ferrous Sulfate Dried 142 Mg Tabcr PO 142 mg DAILY@0800 RAMA Administration Fluticasone/Umeclidinium/Vilanterol 1 puff 01/11/25 09:00 01/13/25 08:47 Fluticasone/Umeclidin/Vilanter 100-62.5-25 Mcg Ellipta INHALATION 1 puff DAILY RAMA Administration Furosemide 40 mg 01/10/25 14:20 01/13/25 08:00 Furosemide 40 Mg Tablet PO 40 mg DAILY RAMA Administration Hydrochlorothiazide 25 mg 01/10/25 14:25 01/10/25 15:14 Hydrochlorothiazide 25 Mg Tablet PO Not Given DAILY RAMA Levothyroxine Sodium 125 mcg 01/11/25 06:30 01/14/25 06:35 Levothyroxine Sodium 125 Mcg Tablet PO 125 mcg DAILY@0630 RAMA Administration Meclizine HCl 25 mg 01/10/25 14:06 01/13/25 17:33 Meclizine Hcl 25 Mg Tablet PO 25 mg QID PRN Administration dizziness Meloxicam 15 mg 01/10/25 14:20 01/13/25 08:01 Meloxicam 7.5 Mg Tablet PO 15 mg DAILY RAMA Administration Metolazone 2.5 mg 01/11/25 09:00 01/13/25 08:01 Metolazone 2.5 Mg Tablet PO 2.5 mg Q48HR RAMA Administration Pantoprazole Sodium 40 mg 01/10/25 14:20 01/13/25 08:00 Pantoprazole 40 Mg Tablet PO 40 mg DAILY RAMA Administration Perflutren Lipid Microsphere 0 ml 01/13/25 09:34 Perflutren Lipid Microspheres 1.5 Ml Vial Diluted To 10 Ml Total Volume IV PUSH 01/16/25 09:34 ONCE PRN adequate visualization Protocol Polyethylene Glycol 17 gm 01/10/25 14:06 Polyethylene Glycol 3350 17 Gm Powd.Pack PO DAILY PRN constipation Potassium Chloride 40 meq 01/12/25 09:00 01/13/25 08:01 Potassium Chloride 20 Meq Er Tablet PO 40 meq DAILY RAMA Administration Valsartan 160 mg 01/10/25 14:20 01/10/25 15:14 Valsartan 160 Mg Tablet PO Not Given DAILY RAMA Vitamin D 2,000 units 01/10/25 14:20 01/13/25 08:00 Cholecalciferol 1,000 Units Tablet PO 2,000 units DAILY RAMA Administration Radiology Results: ITS Impressions Chest X-Ray 01/10/25 06:32 Impression: Clear lungs. T11 compression deformity. Head CT 01/10/25 08:33 IMPRESSION: 1. No acute intracranial process. 2. 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 Labs Labs: Laboratory Results - last 24 hr 01/13/25 01/13/25 01/14/25 04:37 09:31 04:33 WBC 18.5 H 14.0 H RBC 3.35 L 4.07 L Hgb 6.7 L* 8.5 L Hct 26.0 L 31.3 L MCV 77.6 L D 76.9 L MCH 20.0 L 20.9 L MCHC 25.8 L 27.2 L RDW 19.5 H 20.1 H Plt Count 387 H 361 MPV 10.0 9.6 Sodium 137 Potassium 3.9 Chloride 100 Carbon Dioxide 27 Anion Gap 10 BUN 41 H D Creatinine 1.17 H Estim Creat Clear Calc 30 Estimated GFR 44 L Glucose 117 H Calcium 9.4 Blood Type O Positive Antibody Screen Negative Crossmatch See Detail Quality VTE Prophylaxis VTE prophylaxis: mechanical ordered
[2025-01-14] MEDS: FERROUS SULFATE DRIED 142 MG TABCR PO (08:37)
[2025-01-14] MEDS: FUROSEMIDE 40 MG TABLET PO (08:37)
[2025-01-14] MEDS: CEFDINIR 300 MG CAPSULE PO ×2 (08:37→20:14)
[2025-01-14] MEDS: DOCUSATE SODIUM 100 MG CAPSULE PO (08:37)
[2025-01-14] MEDS: CHOLECALCIFEROL 1,000 UNITS TABLET 2000 UNITS PO (08:37)
[2025-01-14] MEDS: PANTOPRAZOLE 40 MG TABLET PO (08:38)
[2025-01-14] MEDS: POTASSIUM CHLORIDE 20 MEQ ER TABLET 40 MEQ PO (08:38)
[2025-01-14] MEDS: MELOXICAM 7.5 MG TABLET 15 MG PO (08:38)
[2025-01-14] MEDS: FLUTICASONE/UMECLIDIN/VILANTER 100-62.5-25 MCG ELLIPTA 1 PUFF INHALATION (09:10)
--- NOTE | 2025-01-14 12:08 | WPDGIPROGNO ---
Progress Note: A&P Assessment and Plan (1) Chronic anemia: Code(s): D64.9 - Anemia, unspecified Status: Acute Assessment and Plan: noted h/h dropped but responded to transfusion patient denies overt gib continue with ppi keep hgb>7 patient still prefers conservative treatment since no signs of obvious bleeding will follow as needed (2) Occult blood in stools: Code(s): R19.5 - Other fecal abnormalities Status: Acute (3) Vertigo: Code(s): R42 - Dizziness and giddiness Status: Acute Subjective Date/time seen: 01/14/25 12:08 Interval history: no major changes Review of Systems Review of Systems: All systems reviewed & are unremarkable except as noted in HPI and below Exam Const: General: comfortable and no acute distress HENMT: Face/Nose/Sinus: Normal nares present Mouth: Yes moist mucous membranes Eyes: General: appearance normal, both eyes and all related structures Sclera: sclerae normal Neck: Neck: supple Resp: Effort & Inspection: normal respiratory effort Other: bibasilar crackles, scattered wheezing. Cardio: Rate: regular rate Rhythm: regular rhythm GI: GI Palp: Yes Soft to palpation and No Tenderness to palpation present (GI) Auscultation: normal bowel sounds Skin: General skin exam: normal color and no rashes or lesions noted Neuro: Speech: normal speech Motor exam (neuro): 5/5 motor strength present throughout Extrem: General: normal to inspection Psych: Mental Status: mental status grossly normal Affect: normal affect Other: Good insight and judgment, pleasant Objective Data Vital Signs Vital Signs: Vital Signs - 24 hr 01/13/25 12:47 01/13/25 13:17 01/13/25 13:51 Temperature 98.7 F 98.8 F Pulse Rate 91 98 82 Respiratory Rate 18 18 20 Blood Pressure 122/48 L 116/50 L Pulse Oximetry 100 98 Oxygen Delivery Fraction of Inspired Oxygen 01/13/25 14:00 01/13/25 14:14 01/13/25 16:00 Temperature 97.5 F L Pulse Rate 92 86 103 H Respiratory Rate 18 20 Blood Pressure 120/71 Pulse Oximetry 96 Oxygen Delivery Fraction of Inspired Oxygen 01/13/25 20:00 01/13/25 20:00 01/13/25 20:12 Temperature Pulse Rate 97 93 104 H Respiratory Rate 20 18 Blood Pressure Pulse Oximetry 95 Oxygen Delivery Room Air Fraction of Inspired Oxygen 21 01/13/25 20:22 01/13/25 20:49 01/14/25 00:00 Temperature 97.7 F Pulse Rate 104 H 97 95 Respiratory Rate 18 20 Blood Pressure 120/57 L Pulse Oximetry 95 Oxygen Delivery Fraction of Inspired Oxygen 01/14/25 02:08 01/14/25 02:26 01/14/25 04:00 Temperature Pulse Rate 104 H 104 H 106 H Respiratory Rate 18 18 Blood Pressure Pulse Oximetry Oxygen Delivery Fraction of Inspired Oxygen 01/14/25 04:44 01/14/25 08:00 01/14/25 09:11 Temperature 97.7 F Pulse Rate 110 H Respiratory Rate 20 18 Blood Pressure 124/51 L Pulse Oximetry 94 Oxygen Delivery Room Air Fraction of Inspired Oxygen Intake/Output Intake/Output: Intake & Output 01/11/25 01/12/25 01/13/25 01/14/25 23:59 23:59 23:59 23:59 Intake Total 2770 1360 1620 720 Balance 2770 1360 1620 720 Meds/Results Medications: Active Medications Generic Name Dose Route Start Last Admin Trade Name Freq PRN Reason Stop Dose Admin Acetaminophen 650 mg 01/10/25 08:17 01/13/25 04:31 Acetaminophen 325 Mg Tablet PO 650 mg Q4H PRN Administration Mild Pain (1-3) or Fever Albuterol/Ipratropium 3 ml 01/10/25 08:00 01/14/25 09:10 Ipratropium 0.5 Mg/Albuterol Sulfate 2.5 Mg Ampul.Neb 3 Ml INHALATION 3 ml Q6HRT DEJON Administration Alendronate Sodium 70 mg 01/13/25 06:30 01/13/25 06:38 Alendronate Sodium 70 Mg Tablet PO 70 mg Mo@0630 DEJON Administration Alprazolam 0.25 mg 01/10/25 14:06 01/13/25 17:33 Alprazolam (*Crx) 0.25 Mg Tablet PO 0.25 mg TID PRN Administration Anxiety Apixaban 5 mg 01/10/25 21:00 01/13/25 08:00 Apixaban 5 Mg Tablet PO 5 mg Q12HR DEJON Administration Atorvastatin Calcium 40 mg 01/10/25 18:00 01/13/25 17:33 Atorvastatin 40 Mg Tablet PO 40 mg QPM DEJON Administration Benzonatate 100 mg 01/10/25 14:06 Benzonatate 100 Mg Capsule PO TID PRN cough Cefdinir 300 mg 01/12/25 21:00 01/14/25 08:37 Cefdinir 300 Mg Capsule PO 300 mg Q12HR DEJON Administration Docusate Sodium 100 mg 01/10/25 14:20 01/14/25 08:37 Docusate Sodium 100 Mg Capsule PO 100 mg DAILY DEJON Administration Ferrous Sulfate 142 mg 01/13/25 08:05 01/14/25 08:37 Ferrous Sulfate Dried 142 Mg Tabcr PO 142 mg DAILY@0800 DEJON Administration Fluticasone/Umeclidinium/Vilanterol 1 puff 01/11/25 09:00 01/14/25 09:10 Fluticasone/Umeclidin/Vilanter 100-62.5-25 Mcg Ellipta INHALATION 1 puff DAILY DEJON Administration Furosemide 40 mg 01/10/25 14:20 01/14/25 08:37 Furosemide 40 Mg Tablet PO 40 mg DAILY DEJON Administration Hydrochlorothiazide 25 mg 01/10/25 14:25 01/10/25 15:14 Hydrochlorothiazide 25 Mg Tablet PO Not Given DAILY DEJON Levothyroxine Sodium 125 mcg 01/11/25 06:30 01/14/25 06:35 Levothyroxine Sodium 125 Mcg Tablet PO 125 mcg DAILY@0630 DEJON Administration Meclizine HCl 25 mg 01/10/25 14:06 01/13/25 17:33 Meclizine Hcl 25 Mg Tablet PO 25 mg QID PRN Administration dizziness Meloxicam 15 mg 01/10/25 14:20 01/14/25 08:38 Meloxicam 7.5 Mg Tablet PO 15 mg DAILY DEJON Administration Metolazone 2.5 mg 01/11/25 09:00 01/13/25 08:01 Metolazone 2.5 Mg Tablet PO 2.5 mg Q48HR DEJON Administration Pantoprazole Sodium 40 mg 01/10/25 14:20 01/14/25 08:38 Pantoprazole 40 Mg Tablet PO 40 mg DAILY DEJON Administration Perflutren Lipid Microsphere 0 ml 01/13/25 09:34 Perflutren Lipid Microspheres 1.5 Ml Vial Diluted To 10 Ml Total Volume IV PUSH 01/16/25 09:34 ONCE PRN adequate visualization Protocol Polyethylene Glycol 17 gm 01/10/25 14:06 Polyethylene Glycol 3350 17 Gm Powd.Pack PO DAILY PRN constipation Potassium Chloride 40 meq 01/12/25 09:00 01/14/25 08:38 Potassium Chloride 20 Meq Er Tablet PO 40 meq DAILY DEJON Administration Valsartan 160 mg 01/10/25 14:20 01/10/25 15:14 Valsartan 160 Mg Tablet PO Not Given DAILY DEJON Vitamin D 2,000 units 01/10/25 14:20 01/14/25 08:37 Cholecalciferol 1,000 Units Tablet PO 2,000 units DAILY DEJON Administration Radiology Results: ITS Impressions Chest X-Ray 01/10/25 06:32 Impression: Clear lungs. T11 compression deformity. Head CT 01/10/25 08:33 IMPRESSION: 1. No acute intracranial process. 2. 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 Labs Labs: Laboratory Results - last 24 hr 01/13/25 01/14/25 09:31 04:33 WBC 14.0 H RBC 4.07 L Hgb 8.5 L Hct 31.3 L MCV 76.9 L MCH 20.9 L MCHC 27.2 L RDW 20.1 H Plt Count 361 MPV 9.6 Sodium 137 Potassium 3.9 Chloride 100 Carbon Dioxide 27 Anion Gap 10 BUN 41 H D Creatinine 1.17 H Estim Creat Clear Calc 30 Estimated GFR 44 L Glucose 117 H Calcium 9.4 Crossmatch See Detail
--- NOTE | 2025-01-14 14:56 | P.PNCA_ITS ---
Progress Note: A&P Assessment and Plan (1) Essential hypertension: Code(s): I10 - Essential (primary) hypertension <ELIZABETH Shaikh - Last Filed: 01/14/25 15:03> Status: Chronic <ELIZABETH Shaikh - Last Filed: 01/14/25 15:03> (2) Elevated brain natriuretic peptide (BNP) level: Code(s): R79.89 - Other specified abnormal findings of blood chemistry <ELIZABETH Shaikh - Last Filed: 01/14/25 15:03> Status: Acute <ELIZABETH Shaikh - Last Filed: 01/14/25 15:03> (3) Ventricular tachyarrhythmia: Code(s): I47.20 - Ventricular tachycardia, unspecified <ELIZABETH Shaikh - Last Filed: 01/14/25 15:03> Status: Acute <ELIZABETH Shaikh - Last Filed: 01/14/25 15:03> Assessment and Plan: Problem list: NSVT ----she had low potassium less than 3 at presentation which could be a cause Dizziness- known h/o 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; loop recorder in place On anticoagulation with Eliquis; loop recorder in place; pt thinks it is for a 'd fib' and not sure History of CVA History of left internal carotid artery complete occlusion Hypertension COPD Mitral stenosis Plan: I reviewed the telemetry and there are some episodes of NSVT but mostly artifact Troponin negative x3 Recommend a stress test to evaluate for underlying CAD as cause for NSVT - can be done as outpatient Check and replace electrolytes to keep K greater than 4 and Mg greater than 2 Continue diuresis with Lasix and metolazone at home dose Continue KCl supplements Continue valsartan and hydrochlorothiazide at home dose Continue statin She was recently started on Eliquis and pt think this is for 'd fib'. Pt has a loop recorder. BNEITO showed normal EF with moderate - severe mitral stenosis. Already referred to director of collections as outpatient because of this. Also has moderate - severe . Will need referral to valve clinic. No further inpatient workup needed. Cardiology will sign off please call with questions. <ELIZABETH Shaikh - Last Filed: 01/14/25 15:03> Problem list: NSVT ----she had low potassium less than 3 at presentation which could be a cause Dizziness- known h/o 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; loop recorder in place On anticoagulation with Eliquis; loop recorder in place; pt thinks it is for a 'd fib' and not sure History of CVA History of left internal carotid artery complete occlusion Hypertension COPD Mitral stenosis Plan: I reviewed the telemetry and there are some episodes of NSVT but mostly artifact Troponin negative x3 No stress test given valvular heart disease of moderate and severe MS. Recommend cardiac catheterization for ischemia evaluation as outpatient Check and replace electrolytes to keep K greater than 4 and Mg greater than 2 Continue diuresis with Lasix and metolazone at home dose Continue KCl supplements Continue valsartan and hydrochlorothiazide at home dose Continue statin She was recently started on Eliquis and pt think this is for 'd fib'. Pt has a loop recorder. BENITO showed normal EF with moderate - severe mitral stenosis. Already referred to director of collections as outpatient because of this. Also has moderate - severe . Will need referral to valve clinic. Cardiac cath for ischemia evaluation can be done as outpatient as part of valvular heart disease work up. No further inpatient workup needed as patient does not have any chest pain. Cardiology will sign off please call with questions. <Phyllis Back MD - Last Filed: 01/14/25 15:17> Subjective Date/time seen: 01/14/25 14:56 <ELIZABETH Shaikh - Last Filed: 01/14/25 15:03> Interval history: Cardiology follow up visit Feeling somewhat better. Drowsy, but alert and oriented. No chest pain, palpitations, shortness of breath. <ELIZABETH Shaikh - Last Filed: 01/14/25 15:03> Review of Systems Review of Systems: Complete review of systems was performed and negative other than those mentioned in HPI <ELIZABETH Shaikh - Last Filed: 01/14/25 15:03> Exam Narrative: General: Alert oriented x3, no acute distress Neck: Supple, JVD + Chest: BL CTA no rales or rhonchi Cardiac: S1, S2 +, regular rate, regular rhythm, no murmurs or rubs Extremities: Bilateral lower extremity edema 1+, no skin rash Neurologic: Alert and oriented x3, no focal neurological deficits <ELIZABETH Shaikh - Last Filed: 01/14/25 15:03> Objective Data Vital Signs Vital Signs: Vital Signs - 24 hr 01/13/25 16:00 01/13/25 20:00 01/13/25 20:00 Temperature Pulse Rate 103 H 97 93 Respiratory Rate 20 Blood Pressure Pulse Oximetry 95 Oxygen Delivery Room Air Fraction of Inspired Oxygen 21 01/13/25 20:12 01/13/25 20:22 01/13/25 20:49 Temperature 36.5 C Pulse Rate 104 H 104 H 97 Respiratory Rate 18 18 20 Blood Pressure 120/57 L Pulse Oximetry 95 Oxygen Delivery Fraction of Inspired Oxygen 01/14/25 00:00 01/14/25 02:08 01/14/25 02:26 Temperature Pulse Rate 95 104 H 104 H Respiratory Rate 18 18 Blood Pressure Pulse Oximetry Oxygen Delivery Fraction of Inspired Oxygen 01/14/25 04:00 01/14/25 04:44 01/14/25 08:00 Temperature 36.5 C Pulse Rate 106 H 110 H Respiratory Rate 20 Blood Pressure 124/51 L Pulse Oximetry 94 Oxygen Delivery Room Air Fraction of Inspired Oxygen 01/14/25 08:00 01/14/25 09:11 01/14/25 12:00 Temperature Pulse Rate 94 96 Respiratory Rate 18 Blood Pressure Pulse Oximetry Oxygen Delivery Fraction of Inspired Oxygen 01/14/25 14:00 Temperature 36.9 C Pulse Rate 80 Respiratory Rate 18 Blood Pressure 162/79 H Pulse Oximetry 97 Oxygen Delivery Fraction of Inspired Oxygen <ELIZABETH Shaikh - Last Filed: 01/14/25 15:03> Intake/Output Intake/Output: Intake & Output 01/11/25 01/12/25 01/13/25 01/14/25 23:59 23:59 23:59 23:59 Intake Total 2770 1360 1620 960 Balance 2770 1360 1620 960 <ELIZABETH Shaikh - Last Filed: 01/14/25 15:03> Meds/Results Medications: Active Medications Generic Name Dose Route Start Last Admin Trade Name Patrice PRN Reason Stop Dose Admin Acetaminophen 650 mg 01/10/25 08:17 01/13/25 04:31 Acetaminophen 325 Mg Tablet PO 650 mg Q4H PRN Administration Mild Pain (1-3) or Fever Albuterol/Ipratropium 3 ml 01/10/25 08:00 01/14/25 09:10 Ipratropium 0.5 Mg/Albuterol Sulfate 2.5 Mg Ampul.Neb 3 Ml INHALATION 3 ml Q6HRT DEJON Administration Alendronate Sodium 70 mg 01/13/25 06:30 01/13/25 06:38 Alendronate Sodium 70 Mg Tablet PO 70 mg Mo@0630 DEJON Administration Alprazolam 0.25 mg 01/10/25 14:06 01/13/25 17:33 Alprazolam (*Crx) 0.25 Mg Tablet PO 0.25 mg TID PRN Administration Anxiety Apixaban 5 mg 01/10/25 21:00 01/13/25 08:00 Apixaban 5 Mg Tablet PO 5 mg Q12HR DEJON Administration Atorvastatin Calcium 40 mg 01/10/25 18:00 01/13/25 17:33 Atorvastatin 40 Mg Tablet PO 40 mg QPM DEJON Administration Benzonatate 100 mg 01/10/25 14:06 Benzonatate 100 Mg Capsule PO TID PRN cough Cefdinir 300 mg 01/12/25 21:00 01/14/25 08:37 Cefdinir 300 Mg Capsule PO 300 mg Q12HR DEJON Administration Docusate Sodium 100 mg 01/10/25 14:20 01/14/25 08:37 Docusate Sodium 100 Mg Capsule PO 100 mg DAILY DEJON Administration Ferrous Sulfate 142 mg 01/13/25 08:05 01/14/25 08:37 Ferrous Sulfate Dried 142 Mg Tabcr PO 142 mg DAILY@0800 DEJON Administration Fluticasone/Umeclidinium/Vilanterol 1 puff 01/11/25 09:00 01/14/25 09:10 Fluticasone/Umeclidin/Vilanter 100-62.5-25 Mcg Ellipta INHALATION 1 puff DAILY DEJON Administration Furosemide 40 mg 01/10/25 14:20 01/14/25 08:37 Furosemide 40 Mg Tablet PO 40 mg DAILY DEJON Administration Hydrochlorothiazide 25 mg 01/10/25 14:25 01/10/25 15:14 Hydrochlorothiazide 25 Mg Tablet PO Not Given DAILY DEJON Levothyroxine Sodium 125 mcg 01/11/25 06:30 01/14/25 06:35 Levothyroxine Sodium 125 Mcg Tablet PO 125 mcg DAILY@0630 DEJON Administration Meclizine HCl 25 mg 01/10/25 14:06 01/13/25 17:33 Meclizine Hcl 25 Mg Tablet PO 25 mg QID PRN Administration dizziness Meloxicam 15 mg 01/10/25 14:20 01/14/25 08:38 Meloxicam 7.5 Mg Tablet PO 15 mg DAILY DEJON Administration Metolazone 2.5 mg 01/11/25 09:00 01/13/25 08:01 Metolazone 2.5 Mg Tablet PO 2.5 mg Q48HR DEJON Administration Pantoprazole Sodium 40 mg 01/10/25 14:20 01/14/25 08:38 Pantoprazole 40 Mg Tablet PO 40 mg DAILY DEJON Administration Perflutren Lipid Microsphere 0 ml 01/13/25 09:34 Perflutren Lipid Microspheres 1.5 Ml Vial Diluted To 10 Ml Total Volume IV PUSH 01/16/25 09:34 ONCE PRN adequate visualization Protocol Polyethylene Glycol 17 gm 01/10/25 14:06 Polyethylene Glycol 3350 17 Gm Powd.Pack PO DAILY PRN constipation Potassium Chloride 40 meq 01/12/25 09:00 01/14/25 08:38 Potassium Chloride 20 Meq Er Tablet PO 40 meq DAILY DEJON Administration Valsartan 160 mg 01/10/25 14:20 01/10/25 15:14 Valsartan 160 Mg Tablet PO Not Given DAILY DEJON Vitamin D 2,000 units 01/10/25 14:20 01/14/25 08:37 Cholecalciferol 1,000 Units Tablet PO 2,000 units DAILY DEJON Administration <Saida Back, [employer] - Last Filed: 01/14/25 15:03> Radiology Results: ITS Impressions Chest X-Ray 01/10/25 06:32 Impression: Clear lungs. T11 compression deformity. Head CT 01/10/25 08:33 IMPRESSION: 1. No acute intracranial process. 2. 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 <ELIZABETH Shaikh - Last Filed: 01/14/25 15:03> Labs Labs: Laboratory Results - last 24 hr 01/14/25 04:33 WBC 14.0 H RBC 4.07 L Hgb 8.5 L Hct 31.3 L MCV 76.9 L MCH 20.9 L MCHC 27.2 L RDW 20.1 H Plt Count 361 MPV 9.6 Sodium 137 Potassium 3.9 Chloride 100 Carbon Dioxide 27 Anion Gap 10 BUN 41 H D Creatinine 1.17 H Estim Creat Clear Calc 30 Estimated GFR 44 L Glucose 117 H Calcium 9.4 <ELIZABETH Shaikh - Last Filed: 01/14/25 15:03> Quality VTE Prophylaxis VTE prophylaxis: mechanical ordered <ELIZABETH Shaikh - Last Filed: 01/14/25 15:03>
[2025-01-14] MEDS: ATORVASTATIN 40 MG TABLET PO (17:18)
[2025-01-15] VITALS (16 sets, daily range): BP systolic 101–121; BP diastolic 49–54; PULSE 77–103; RESP 18–20; TEMP 36.6–36.9; O2SAT 93–97
[2025-01-15] MEDS: IPRATROPIUM 0.5 MG/ALBUTEROL SULFATE 2.5 MG AMPUL.NEB 3 ML INHALATION ×4 (01:49→21:09)
[2025-01-15 04:57] LABS: Hematocrit 28.9 % (37.0-47.0); Hemoglobin 7.9 g/dL (12.0-15.0); Mean Corpuscular HGB Conc 27.3 g/dl (32-36); Mean Corpuscular Volume 76.9 fl (80-100); Mean Platelet Volume 9.2 fl (7.4-10.4); Platelet Count Result 326 k/mm3 (150-375); Red Blood Count 3.76 M/mm3 (4.2-5.4); Red Cell Distribution Width 20.7 % (11.5-14.5); White Blood Count 13.5 K/mm3 (4.5-10.0)
[2025-01-15 05:10] LABS: Anion Gap 8 mmol/L (4-12); Blood Urea Nitrogen 39 mg/dL (7-17); Calcium 8.9 mg/dL (8.4-10.2); Carbon Dioxide 26 mmol/L (22-30); Chloride 103 mmol/L (98-107); Estimated CRCL calculation 24 ml/min; Estimated Glomerular Filt Rate 34; Glucose 123 mg/dL (65-110); Potassium 4.1 mmol/L (3.4-5.0); Sodium 137 mmol/L (137-145)
[2025-01-15] MEDS: LEVOTHYROXINE SODIUM 125 MCG TABLET PO (05:50)
[2025-01-15] MEDS: FLUTICASONE/UMECLIDIN/VILANTER 100-62.5-25 MCG ELLIPTA 1 PUFF INHALATION (07:50)
[2025-01-15] MEDS: FERROUS SULFATE DRIED 142 MG TABCR PO (08:46)
[2025-01-15] MEDS: DOCUSATE SODIUM 100 MG CAPSULE PO (08:47)
[2025-01-15] MEDS: metOLazone 2.5 MG TABLET PO (08:47)
[2025-01-15] MEDS: CHOLECALCIFEROL 1,000 UNITS TABLET 2000 UNITS PO (08:47)
[2025-01-15] MEDS: MELOXICAM 7.5 MG TABLET 15 MG PO (08:47)
[2025-01-15] MEDS: POTASSIUM CHLORIDE 20 MEQ ER TABLET 40 MEQ PO (08:47)
[2025-01-15] MEDS: PANTOPRAZOLE 40 MG TABLET PO ×2 (08:47→17:06)
[2025-01-15] MEDS: CEFDINIR 300 MG CAPSULE PO (08:47)
[2025-01-15] MEDS: FUROSEMIDE 40 MG TABLET PO (08:47)
[2025-01-15] MEDS: ALPRAZolam (*CRX) 0.25 MG TABLET PO (08:48)
--- NOTE | 2025-01-15 10:32 | PCNFU ---
Nutrition Follow-Up Complete: Inadequate Oral Intake as related to COPD as evidenced by weight loss of 20 ibs in 3 months and poor po intake. Goal: Adequate Intake of at least 75% of meals/supplements Patient is meeting goal. No new goal. Pt current nutrition is Heart Healthy. Last recorded weight is 80.1 kg, up from 73.2 kg on admit. Bowel Motility: Last reported BM 01/14 Labs Reviewed: Glu 123, Cr 1.45, BUN 39, Hct 28.9, Hgb 7.9 Meds Noted: Lasix, Lipitor, Protonix, Vit D, Eliquis. Skin: WNL Additional Notes: Patient remains on a heart healthy diet. Oral Intake has been >75% of meals. diet supplements of Nutritional Ice Cream sent BID for additional 300 kcal and 9 gm protein. Agree with diet orders. RD will monitor weight, labs, skin, diet orders, meds every 7 days.
--- NOTE | 2025-01-15 11:25 | P.PNIM_ITS ---
Progress Note: A&P Assessment and Plan (1) Acute kidney injury: Code(s): N17.9 - Acute kidney failure, unspecified Status: Acute Assessment and Plan: Creatinine 1.61 and GFR 30. Previously 1.36 and GFR 37 on 11/17/2024. Possible UTI, however many epithelial cells which may indicate contamination. Started on ABX, follow culture. May be contributing to worsening renal function. BNP elevated, no known history of CHF. Has been reporting shortness of breath and cough. No echo on file, ordered. IV fluids: LR at 100 mL/hour x1 L, will proceed slowly due to possibility of new CHF. Trend renal function. Correct electrolytes as needed, monitor. Creatinine 1.45 today, at baseline (2) Dizziness: Code(s): R42 - Dizziness and giddiness Status: Acute Assessment and Plan: Dizziness x2 days. History of vertigo and stroke. No change in dizziness with meclizine p.o. prior to arrival. Continue patient's home med: Meclizine 15 mg daily. fall precautions stable 01/12- short run of vtach will order mg, k tsh was checked and normal -iron panel card consult placed 01/14-stable overall card on board no episodes of arrhythmias (3) COPD (chronic obstructive pulmonary disease): Qualifiers: COPD type: COPD with acute lower respiratory infection Qualified Code(s): J44.0 - Chronic obstructive pulmonary disease with (acute) lower respiratory infection Code(s): J44.9 - Chronic obstructive pulmonary disease, unspecified Status: Acute Assessment and Plan: Wheezing and rhonchi upon arrival to the ED on 01/10. DuoNebs q.6 rama. Will hold on abx and steroids, no increased O2 requirement and cough remains dry (no increased sputum production). stable, no sob monitor for now IS, out of bed TID and prn (4) Acute hypokalemia: Code(s): E87.6 - Hypokalemia Status: Acute Assessment and Plan: Potassium 2.9 upon arrival. Initial repletion with 40 p.o. of KCl. Plan for recheck this evening. Monitor k 3.3 will order daily replacement daily labs to monitor k 3.5 on 01/14- continue oral replacement (5) Elevated brain natriuretic peptide (BNP) level: Code(s): R79.89 - Other specified abnormal findings of blood chemistry Status: Acute Assessment and Plan: BNP 1180 No echo on file, ordered. Monitor I&Os daily weights. CXR showed no evidence of pulmonary congestion. On Lasix 40 mg p.o. daily and metolazone 2.5 mg Q 48 hours - continue. Hold HCTZ 25 mg daily (believes her provider d/c'd this medication) Initially presented with rhonchi and wheezing on exam, does have history of COPD. Shortness of breath secondary to COPD versus new CHF? In favor of CHF. strict I/O (6) UTI (urinary tract infection): Qualifiers: Hematuria presence: without hematuria Urinary tract infection type: acute cystitis Qualified Code(s): N30.00 - Acute cystitis without hematuria Code(s): N39.0 - Urinary tract infection, site not specified Status: Suspected Assessment and Plan: UA showed 2+ leuks, 11-20 WBC, many epithelial cells. Contaminant versus infection. Check urine culture, follow. Started on ceftriaxone on 01/10. 01/12- continue antibiotics-changed to po 01/14 cefdinir 300 mg bid (on 01/12) (7) Hypothyroidism: Qualifiers: Hypothyroidism type: unspecified Qualified Code(s): E03.9 - Hypothyroidism, unspecified Code(s): E03.9 - Hypothyroidism, unspecified Status: Chronic Assessment and Plan: Continue home Synthroid. TSH 1.77 on 01/10/2025. (8) Essential hypertension: Code(s): I10 - Essential (primary) hypertension Status: Chronic Assessment and Plan: Chronic, stable Continue home medications: Lasix, metolazone. Hold valsartan-hydrochlorothiazide, believes she was taken off this medication. Monitor- 124/51 (9) Chronic anemia: Code(s): D64.9 - Anemia, unspecified Status: Acute Assessment and Plan: hg dropped to 6.7/19.4 this am will hold eliquis for now type/screen and 1 unit if PRBC ordered Iron studies ordered:iron 29, %satur 7, tibc 404 will order replacement gi is following- no acute interventions 01/14 hg stable-continue to trend (10) Occult blood in stools: Code(s): R19.5 - Other fecal abnormalities Status: Acute Assessment and Plan: GI consulted Plan Patient admitted for dizziness. New left arm and leg weakness so repeated head CT and unchanged. Consulted neurology Patient here for dizziness Some intermittent dizziness with exertion. Continue meclizine. BNP elevated along with history of lower extremity edema treated with diuretic raises concerns for new CHF. UA also concerning for UTI, however may be contaminant, follow urine culture, started on ceftriaxone. Diet: Heart healthy, dietary supplements GI Prophylaxis: Not currently indicated DVT Prophylaxis: Eliquis-on hold, SCD IV fluids: LR 100 mL/hour x1 L Lines/Tubes: Peripheral IV Code Status: Full code Time Spent With Patient Time: 68 minutes Subjective Date/time seen: 01/15/25 11:25 Interval history: New left arm and leg weakness this morning, new numbness to left arm, was sallie rodriguez for something this morning about 5am and noticed it. No facial weakness or other symptoms. Head CT this morning no acute findings Eliquis on hold 2/2 anemia Blood count trending down but only moderately May need to reconsider scope, may need to restart blood thinners Patient would like to avoid an MRI due to back pain Review of Systems Review of Systems: All systems reviewed & are unremarkable except as noted in HPI and below Exam Narrative: General - Awake and alert. No acute distress Eyes - PERRLA, EOM intact ENT - No thrush, No erythema Neck - No noticeable or palpable swelling Lymph Nodes - No lymphadenopathy Cardiovascular - RRR no m/r/g, no JVD Lungs: Clear to auscultation, No wheezing, use of accessory muscles, no crackles or wheezes. Skin - Skin warm and dry, no wounds or rashes Abdomen - Normal bowel sounds, abdomen soft and nontender Extremities - No edema, cyanosis or clubbing Musculoskeletal - 3/5 strength left arm, 5/5 strength right arm, normal range of motion, no swollen or erythematous joints. Neurological – Alert and oriented x 3, CN 2-12 grossly intact. Psych: Normal mood and affect Objective Data Vital Signs Vital Signs: Vital Signs - 24 hr 01/14/25 12:00 01/14/25 14:00 01/14/25 16:00 Temperature 98.4 F Pulse Rate 96 80 91 Respiratory Rate 18 Blood Pressure 162/79 H Pulse Oximetry 97 Oxygen Delivery Fraction of Inspired Oxygen 01/14/25 20:00 01/14/25 20:00 01/14/25 20:26 Temperature Pulse Rate 81 90 84 Respiratory Rate 18 20 Blood Pressure Pulse Oximetry 91 Oxygen Delivery Room Air Fraction of Inspired Oxygen 21 01/14/25 20:28 01/14/25 20:36 01/14/25 22:00 Temperature 98.2 F Pulse Rate 84 90 81 Respiratory Rate 20 20 18 Blood Pressure 110/51 L Pulse Oximetry 96 91 Oxygen Delivery Room Air Fraction of Inspired Oxygen 21 01/15/25 00:00 01/15/25 01:49 01/15/25 02:04 Temperature Pulse Rate 103 H 88 90 Respiratory Rate 20 20 Blood Pressure Pulse Oximetry Oxygen Delivery Fraction of Inspired Oxygen 01/15/25 04:00 01/15/25 06:00 01/15/25 07:52 Temperature 97.8 F Pulse Rate 92 97 Respiratory Rate 18 Blood Pressure 119/49 L Pulse Oximetry 93 97 Oxygen Delivery Room Air Fraction of Inspired Oxygen 01/15/25 07:52 01/15/25 08:01 Temperature Pulse Rate 96 97 Respiratory Rate 20 20 Blood Pressure Pulse Oximetry Oxygen Delivery Fraction of Inspired Oxygen Intake/Output Intake/Output: Intake & Output 01/12/25 01/13/25 01/14/25 01/15/25 23:59 23:59 23:59 23:59 Intake Total 1360 1620 2540 480 Balance 1360 1620 2540 480 Meds/Results Medications: Active Medications Generic Name Dose Route Start Last Admin Trade Name Freq PRN Reason Stop Dose Admin Acetaminophen 650 mg 01/10/25 08:17 01/13/25 04:31 Acetaminophen 325 Mg Tablet PO 650 mg Q4H PRN Administration Mild Pain (1-3) or Fever Albuterol/Ipratropium 3 ml 01/10/25 08:00 01/15/25 07:51 Ipratropium 0.5 Mg/Albuterol Sulfate 2.5 Mg Ampul.Neb 3 Ml INHALATION 3 ml Q6HRT RAMA Administration Alendronate Sodium 70 mg 01/13/25 06:30 01/13/25 06:38 Alendronate Sodium 70 Mg Tablet PO 70 mg Mo@0630 RAMA Administration Alprazolam 0.25 mg 01/10/25 14:06 01/15/25 08:48 Alprazolam (*Crx) 0.25 Mg Tablet PO 0.25 mg TID PRN Administration Anxiety Apixaban 5 mg 01/10/25 21:00 01/13/25 08:00 Apixaban 5 Mg Tablet PO 5 mg Q12HR RAMA Administration Atorvastatin Calcium 40 mg 01/10/25 18:00 01/14/25 17:18 Atorvastatin 40 Mg Tablet PO 40 mg QPM RAMA Administration Benzonatate 100 mg 01/10/25 14:06 Benzonatate 100 Mg Capsule PO TID PRN cough Cefdinir 300 mg 01/12/25 21:00 01/15/25 08:47 Cefdinir 300 Mg Capsule PO 300 mg Q12HR RAMA Administration Docusate Sodium 100 mg 01/10/25 14:20 01/15/25 08:47 Docusate Sodium 100 Mg Capsule PO 100 mg DAILY RAMA Administration Ferrous Sulfate 142 mg 01/16/25 12:00 Ferrous Sulfate Dried 142 Mg Tabcr PO DAILY@1200 RAMA Fluticasone/Umeclidinium/Vilanterol 1 puff 01/11/25 09:00 01/15/25 07:50 Fluticasone/Umeclidin/Vilanter 100-62.5-25 Mcg Ellipta INHALATION 1 puff DAILY RAMA Administration Furosemide 40 mg 01/10/25 14:20 01/15/25 08:47 Furosemide 40 Mg Tablet PO 40 mg DAILY RAMA Administration Hydrochlorothiazide 25 mg 01/10/25 14:25 01/10/25 15:14 Hydrochlorothiazide 25 Mg Tablet PO Not Given DAILY RAMA Levothyroxine Sodium 125 mcg 01/11/25 06:30 01/15/25 05:50 Levothyroxine Sodium 125 Mcg Tablet PO 125 mcg DAILY@0630 RAMA Administration Meclizine HCl 25 mg 01/10/25 14:06 01/13/25 17:33 Meclizine Hcl 25 Mg Tablet PO 25 mg QID PRN Administration dizziness Meloxicam 15 mg 01/10/25 14:20 01/15/25 08:47 Meloxicam 7.5 Mg Tablet PO 15 mg DAILY RAMA Administration Metolazone 2.5 mg 01/11/25 09:00 01/15/25 08:47 Metolazone 2.5 Mg Tablet PO 2.5 mg Q48HR RAMA Administration Pantoprazole Sodium 40 mg 01/10/25 14:20 01/15/25 08:47 Pantoprazole 40 Mg Tablet PO 40 mg DAILY RAMA Administration Perflutren Lipid Microsphere 0 ml 01/13/25 09:34 Perflutren Lipid Microspheres 1.5 Ml Vial Diluted To 10 Ml Total Volume IV PUSH 01/16/25 09:34 ONCE PRN adequate visualization Protocol Polyethylene Glycol 17 gm 01/10/25 14:06 Polyethylene Glycol 3350 17 Gm Powd.Pack PO DAILY PRN constipation Potassium Chloride 40 meq 01/12/25 09:00 01/15/25 08:47 Potassium Chloride 20 Meq Er Tablet PO 40 meq DAILY RAMA Administration Valsartan 160 mg 01/10/25 14:20 01/10/25 15:14 Valsartan 160 Mg Tablet PO Not Given DAILY RAMA Vitamin D 2,000 units 01/10/25 14:20 01/15/25 08:47 Cholecalciferol 1,000 Units Tablet PO 2,000 units DAILY RAMA Administration Radiology Results: ITS Impressions Chest X-Ray 01/10/25 06:32 Impression: Clear lungs. T11 compression deformity. Head CT 01/10/25 08:33 IMPRESSION: 1. No acute intracranial process. 2. 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 Labs Labs: Laboratory Results - last 24 hr 01/15/25 04:29 WBC 13.5 H RBC 3.76 L Hgb 7.9 L Hct 28.9 L MCV 76.9 L MCH 21.0 L MCHC 27.3 L RDW 20.7 H Plt Count 326 MPV 9.2 Sodium 137 Potassium 4.1 Chloride 103 Carbon Dioxide 26 Anion Gap 8 BUN 39 H Creatinine 1.45 H Estim Creat Clear Calc 24 Estimated GFR 34 L Glucose 123 H Calcium 8.9 Quality VTE Prophylaxis VTE prophylaxis: mechanical ordered Hospitalist MIPS Advance Care Plan I have confirmed that the patient's Advanced Care Plan is present, code status is documented, or surrogate decision maker is listed in patient medical record.: Yes Medication Reconciliation I have utilized all available resources to obtain, update and review the patient s current medications (includes all prescriptions, OTC, herbals, cannabis, and nutritional supplements).: Yes
--- NOTE | 2025-01-15 12:20 | P.CONNEU_ITS ---
Assessment and Plan Assessment and plan (1) Ventricular tachyarrhythmia: Code(s): I47.20 - Ventricular tachycardia, unspecified Status: Acute (2) Essential hypertension: Code(s): I10 - Essential (primary) hypertension Status: Chronic (3) Vertigo: Code(s): R42 - Dizziness and giddiness Status: Acute (4) Benign positional vertigo: Code(s): H81.10 - Benign paroxysmal vertigo, unspecified ear Status: Acute Plan 1. dizziness likely benign paroxysmal vertigo with negative CT scan of the head except the chronic small-vessel ischemic changes and lacunar infarct bilateral periventricular white matter and again on the basis of small-vessel disease. Considering the persistence of the symptomatology CTA can be obtained patient has already been seen by the Cardiology with the possibility of ventricular tachyarrhythmia also is already receiving the anticoagulation therapy. She needs to follow instruction about getting out of the bed, about keeping the eye closed when she has a cute episode to avoid the vertigo and staying in bed, she is receiving multiple medication that can complicate the situation but as far as a TIA is concerned she is on clopidogrel 75mg daily. Other medical problems a being taken care of. MRI will be of not significant help but can be obtained if he continues to have the dizziness. Consult date: 01/15/25 HPI: Ghazal Valadez is a 84 year old female, Admitted to the hospital through the emergency room for the complaints of dizziness of 48hours duration, described as everything moving around in addition to the history of right earache and cough of 2 months duration, reportedly she was started on diuretic by her family physician and patient was also seen about 3 days ago by the commercial real estate broker with the prescription for the new medications, her medications particularly included aspirin 81mg daily, atorvastatin 40mg daily, clopidogrel 75mg daily, levothyroxine 125mcg daily, valsartan 160mg daily, and meclizine on p.r.n. 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 she has history of common carotid artery stenosis documented in April of 2024, she has undergone peripheral arterial vascularization of both lower extremities with stenting in April of 2024, and she has history of loop recorder in the past, she is a former smoker former alcohol intake, she had a CT scan of the head on 01/10 with no acute intracranial process, her recent echocardiogram documents severely enlarged left atrial chamber, moderate to severe aortic valve stenosis with mild aortic valve regurgitation severely calcified mitral valve annulus with stenosis and mild regurgitation, has been seen by the commercial real estate broker and stress test is being recommend as an outpatient with replacing electrolytes while in the hospital particularly the potassium. Review of Systems 2 Review of Systems: All systems reviewed & are unremarkable except as noted in HPI and below PMFSH Past Medical History Medical History Occult blood in stools Vertigo Chronic anemia Anxiety Common carotid artery stenosis (~04/2024) 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 CVA (cerebral vascular accident) (04/2024) Osteoporosis Essential hypertension GERD (gastroesophageal reflux disease) Hypothyroidism Emphysema/COPD Surgical History Surgical History Peripheral arterial disease with history of revascularization (~04/2024) Bilateral lower extremity stents Status post cataract extraction of both eyes with insertion of intraocular lens Status post open reduction with internal fixation of fracture Left patellar fracture History of loop recorder Status post urethral diverticulectomy History of appendectomy History of tonsillectomy and adenoidectomy History of bladder suspension procedure Family History Family History Sibling Asthma Father Diabetes mellitus Hypertension Social History Social History Social History: The patient been since 2023. She is a former smoker she smoked 2.5 packs of cigarettes per day but quit in 1993. She used to drink 3-4 alcoholic beverages a week in still will occasionally drink alcohol in moderation. She raised 5 children. 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 She still drives. She ambulates with a cane. Code status: Full code Surrogate decision maker: Meera Schultz (daughter) Smoking status: Former smoker Alcohol intake: former Substance use: never Do You Feel Safe in your Home?: Yes Lack of Transportation: No Lack of Food: Never True Current Housing: I Have Housing Concerned About Future Housing: No Difficulty Paying Gas/Electric Bills: No Difficulty Paying for Meds: No Currently Unemployed: No Education: High School Diploma/GED Difficulty w/ Childcare or Family Care: No Spiritual care concerns: No Meds Home Medications and Allergies Home Medications Medication Instructions Recorded Confirmed Type albuterol sulfate 2.5 mg/3 mL 2.5 mg inhalation Q4-6H PRN 10/26/24 01/10/25 History (0.083 %) solution for nebulization shortness of breath or wheezing albuterol sulfate 90 mcg/actuation 2 puff inhalation Q4-6H PRN 10/26/24 01/10/25 History aerosol inhaler shortness of breath or wheezing alendronate 70 mg tablet 70 mg PO WEEKLY 10/26/24 01/10/25 History aspirin 81 mg chewable tablet 81 mg PO DAILY 10/26/24 01/10/25 History atorvastatin 40 mg tablet 40 mg PO QPM 10/26/24 01/10/25 History benzonatate 100 mg capsule 100 mg PO TID PRN cough 10/26/24 01/10/25 History clopidogrel 75 mg tablet 75 mg PO DAILY 10/26/24 01/10/25 History levothyroxine 125 mcg tablet 125 mcg PO DAILY 10/26/24 01/10/25 History meclizine 25 mg tablet 25 mg PO QID PRN dizziness 10/26/24 01/10/25 History pantoprazole 40 mg tablet,delayed 40 mg PO DAILY 10/26/24 01/10/25 History release valsartan 160 1 tablet PO DAILY 10/26/24 01/10/25 History mg-hydrochlorothiazide 25 mg tablet alprazolam 0.25 mg tablet 0.25 mg PO TID PRN Anxiety #10 tabs 11/05/24 01/10/25 Rx citalopram 10 mg tablet (Celexa) 10 mg PO QAM #30 tabs 11/05/24 01/10/25 Rx acetaminophen 325 mg tablet 325 mg PO Q6H PRN pain 01/10/25 01/10/25 History (Tylenol) apixaban 5 mg tablet (Eliquis) 5 mg PO BID 01/10/25 01/10/25 History cholecalciferol (vitamin D3) 50 2,000 unit PO DAILY 01/10/25 01/10/25 History mcg (2,000 unit) capsule docusate sodium 100 mg capsule 100 mg PO DAILY 01/10/25 01/10/25 History fluticasone fur. 100 mcg-umeclid 1 inh inhalation DAILY 01/10/25 01/10/25 History 62.5 mcg-vilant 25 mcg inhalat.powder (Trelegy Ellipta) furosemide 40 mg tablet 40 mg PO DAILY 01/10/25 01/10/25 History ipratropium 0.5 mg-albuterol 3 mg 3 ml inhalation QID PRN shortness 01/10/25 01/10/25 History (2.5 mg base)/3 mL nebulization of breath or wheezing soln meloxicam 15 mg tablet 15 mg PO DAILY 01/10/25 01/10/25 History metolazone 2.5 mg tablet 2.5 mg PO .Q48HR 01/10/25 01/10/25 History polyethylene glycol 3350 17 gram 17 g PO DAILY PRN constipation 01/10/25 01/10/25 History oral powder packet (Powderlax) Allergies Allergy/AdvReac Type Severity Reaction Status Date / Time levofloxacin AdvReac Abdominal Verified 01/10/25 05:32 Pain Vital Signs Vital Signs - 24 hr 01/14/25 14:00 01/14/25 16:00 01/14/25 20:00 Temperature 36.9 C Pulse Rate 80 91 81 Respiratory Rate 18 18 Blood Pressure 162/79 H Pulse Oximetry 97 91 Oxygen Delivery Room Air Fraction of Inspired Oxygen 01/14/25 20:00 01/14/25 20:26 01/14/25 20:28 Temperature Pulse Rate 90 84 84 Respiratory Rate 20 20 Blood Pressure Pulse Oximetry 96 Oxygen Delivery Room Air Fraction of Inspired Oxygen 01/14/25 20:36 01/14/25 22:00 01/15/25 00:00 Temperature 36.8 C Pulse Rate 90 81 103 H Respiratory Rate 20 18 Blood Pressure 110/51 L Pulse Oximetry 91 Oxygen Delivery Fraction of Inspired Oxygen 01/15/25 01:49 01/15/25 02:04 01/15/25 04:00 Temperature Pulse Rate 88 90 92 Respiratory Rate 20 20 Blood Pressure Pulse Oximetry Oxygen Delivery Fraction of Inspired Oxygen 01/15/25 06:00 01/15/25 07:52 01/15/25 07:52 Temperature 36.6 C Pulse Rate 97 96 Respiratory Rate 18 20 Blood Pressure 119/49 L Pulse Oximetry 93 97 Oxygen Delivery Room Air Fraction of Inspired Oxygen 01/15/25 08:00 01/15/25 08:01 Temperature Pulse Rate 97 Respiratory Rate 20 Blood Pressure Pulse Oximetry Oxygen Delivery Room Air Fraction of Inspired Oxygen Exam 2 Narrative: revealed her to be awake alert cooperative in no obvious acute distress, head normocephalic with no cranial bruit, ear nose throat examination normal, neck supple with no cervical bruit no thyromegaly no lymphadenopathy, heart regular with murmur, lungs clear with no rhonchi or crepitations, abdomen soft flabby nontender with normal bowel sounds, neurologically she is awake alert able to follow the verbal commands appropriately, his speech is not dysphasic not dysarthric not dysphonic, pupils round regular feels the vision full to the threat stimuli, with no nystagmus, extraocular movements full, facial sensation intact face symmetrical tongue in the oral cavity with no fasciculation motor examination revealed her to have decreased strength in upper and lower extremities with very sluggish reflexes and downgoing plantar responses she was unable to get out of the bed , there was no ataxia or dysmetria on [id number]-to-finger though Results Labs 01/15/25 04:29 01/15/25 04:29 Labs: Short CBC 01/15/25 Range/Units 04:29 WBC 13.5 H (4.5-10.0) K/mm3 Hgb 7.9 L (12.0-15.0) g/dL Hct 28.9 L (37.0-47.0) % Plt Count 326 (150-375) k/mm3 BMP 01/15/25 04:29 Sodium 137 Potassium 4.1 Chloride 103 Carbon Dioxide 26 BUN 39 H Creatinine 1.45 H Glucose 123 H Calcium 8.9
[2025-01-15] MEDS: ASPIRIN 81 MG CHEWABLE TABLET 324 MG PO (13:21)
[2025-01-15] MEDS: ATORVASTATIN 40 MG TABLET PO (17:06)
[2025-01-16] VITALS (15 sets, daily range): BP systolic 111–131; BP diastolic 47–54; PULSE 83–101; RESP 14–20; TEMP 36.6–36.9; O2SAT 92–97
[2025-01-16] MEDS: ALPRAZolam (*CRX) 0.25 MG TABLET PO ×2 (01:05→21:27)
[2025-01-16] MEDS: IPRATROPIUM 0.5 MG/ALBUTEROL SULFATE 2.5 MG AMPUL.NEB 3 ML INHALATION ×4 (02:57→20:28)
[2025-01-16 04:59] LABS: Hematocrit 27.1 % (37.0-47.0); Hemoglobin 7.2 g/dL (12.0-15.0); Mean Corpuscular HGB Conc 26.6 g/dl (32-36); Mean Corpuscular Hemoglobin 20.6 pg (26-34); Mean Corpuscular Volume 77.4 fl (80-100); Platelet Count Result 294 k/mm3 (150-375); Red Cell Distribution Width 21.2 % (11.5-14.5); White Blood Count 11.1 K/mm3 (4.5-10.0)
[2025-01-16 05:11] LABS: Anion Gap 7 mmol/L (4-12); Blood Urea Nitrogen 39 mg/dL (7-17); Calcium 8.8 mg/dL (8.4-10.2); Carbon Dioxide 27 mmol/L (22-30); Chloride 104 mmol/L (98-107); Estimated CRCL calculation 23 ml/min; Estimated Glomerular Filt Rate 32; Glucose 126 mg/dL (65-110); Potassium 4.4 mmol/L (3.4-5.0); Sodium 138 mmol/L (137-145)
[2025-01-16] MEDS: LEVOTHYROXINE SODIUM 125 MCG TABLET PO (06:32)
--- NOTE | 2025-01-16 07:38 | P.PNIM_ITS ---
Progress Note: A&P Assessment and Plan (1) Acute kidney injury: Code(s): N17.9 - Acute kidney failure, unspecified Status: Acute Assessment and Plan: Creatinine 1.61 and GFR 30. Previously 1.36 and GFR 37 on 11/17/2024. Possible UTI, however many epithelial cells which may indicate contamination. Started on ABX, follow culture. May be contributing to worsening renal function. BNP elevated, no known history of CHF. Has been reporting shortness of breath and cough. No echo on file, ordered. IV fluids: LR at 100 mL/hour x1 L, will proceed slowly due to possibility of new CHF. Trend renal function. Correct electrolytes as needed, monitor. Creatinine 1.45<1.52 today, trending up but still close to baseline, repeat in AM --Hold metolazone, furosemide, and meloxicam (2) Dizziness: Code(s): R42 - Dizziness and giddiness Status: Acute Assessment and Plan: Dizziness x2 days. patient has severe mitral valve stenosis on TTE which could be contributing History of vertigo and stroke. No change in dizziness with meclizine p.o. prior to arrival. Continue patient's home med: Meclizine 15 mg daily. fall precautions stable 01/12- short run of vtach, replaced mg, k. tsh was checked and normal -iron panel cardiology consulted consult placed Repeat in AM (3) COPD (chronic obstructive pulmonary disease): Qualifiers: COPD type: COPD with acute lower respiratory infection Qualified Code(s): J44.0 - Chronic obstructive pulmonary disease with (acute) lower respiratory infection Code(s): J44.9 - Chronic obstructive pulmonary disease, unspecified Status: Acute Assessment and Plan: Wheezing and rhonchi upon arrival to the ED on 01/10. DuoNebs q.6 rama. Will hold on abx and steroids, no increased O2 requirement and cough remains dry (no increased sputum production). stable, no sob monitor for now IS, out of bed TID and prn (4) Acute hypokalemia: Code(s): E87.6 - Hypokalemia Status: Acute Assessment and Plan: Potassium 2.9 upon arrival. Initial repletion with 40 p.o. of KCl. Plan for recheck this evening. Monitor k 3.3 will order daily replacement daily labs to monitor k 3.5 on 01/14- continue oral replacement (5) Elevated brain natriuretic peptide (BNP) level: Code(s): R79.89 - Other specified abnormal findings of blood chemistry Status: Acute (6) UTI (urinary tract infection): Qualifiers: Hematuria presence: without hematuria Urinary tract infection type: acute cystitis Qualified Code(s): N30.00 - Acute cystitis without hematuria Code(s): N39.0 - Urinary tract infection, site not specified Status: Suspected Assessment and Plan: UA showed 2+ leuks, 11-20 WBC, many epithelial cells. Contaminant versus infection. Check urine culture, follow. Started on ceftriaxone on 01/10. 01/12- continue antibiotics-changed to po 01/14 cefdinir 300 mg bid (on 01/12) (7) Hypothyroidism: Qualifiers: Hypothyroidism type: unspecified Qualified Code(s): E03.9 - Hypothyroidism, unspecified Code(s): E03.9 - Hypothyroidism, unspecified Status: Chronic Assessment and Plan: Continue home Synthroid. TSH 1.77 on 01/10/2025. (8) Essential hypertension: Code(s): I10 - Essential (primary) hypertension Status: Chronic Assessment and Plan: Chronic, stable Continue home medications: Lasix, metolazone. Hold valsartan-hydrochlorothiazide, believes she was taken off this medication. Monitor- / (9) Chronic anemia: Code(s): D64.9 - Anemia, unspecified Status: Acute Assessment and Plan: hg dropped to 6.7/19.4 this am will hold eliquis for now type/screen and 1 unit if PRBC ordered Iron studies ordered:iron 29, %satur 7, tibc 404 will order replacement gi is following- no acute interventions 01/14 hg stable-continue to trend (10) Occult blood in stools: Code(s): R19.5 - Other fecal abnormalities Status: Acute Assessment and Plan: Patient denies blood in stool --GI consulted (11) Mitral valve stenosis: Code(s): I05.0 - Rheumatic mitral stenosis Status: Acute Assessment and Plan: BNP 1180 01/13 TTE Notable for severe mitral valve stenosis 1. Complete two-dimensional, color flow and Doppler transthoracic echocardiogram is performed. 2. Left ventricular chamber dimension is normal. 3. Left ventricular systolic function is normal, estimated at 65-70%. 4. There is moderately increased left ventricular wall thickness. 5. The left ventricular diastolic function is grade I diastolic dysfunction. 6. Right ventricular systolic function is normal. 7. Left atrial chamber dimension is severely enlarged. 8. Right atrial chamber dimension is mildly enlarged. 9. There is moderate to severe aortic valve stenosis with a peak velocity of 347 cm/s, mean gradient of 28 mmHg, and aortic valve area of 0.9 cm2. 10. There is mild aortic valve regurgitation. 11. The mitral valve has thickened leaflets. 12. The mitral valve annulus is severely calcified. 13. There is severe mitral valve stenosis. Mean gradient of 12mmHg. 14. There is mild mitral valve regurgitation. 15. There is mild tricuspid valve regurgitation. 16. There is small anterior pericardial effusion. PLAN Monitor I&Os daily weights. CXR showed no evidence of pulmonary congestion. On Lasix 40 mg p.o. daily and metolazone 2.5 mg Q 48 hours - hold since creatinine trending up. Hold HCTZ 25 mg daily (believes her provider d/c'd this medication and generally would choose either furosemide or hctz) Initially presented with rhonchi and wheezing on exam, does have history of COPD. Shortness of breath secondary to COPD versus new CHF --Needs outpatient follow up with cardiology, valve clinic for severe mitral valve stenosis --stress test to evaluate for underlying CAD as cause for NSVT - can be done as outpatient Plan Patient admitted for dizziness. New left arm and leg weakness so repeated head CT and unchanged. Consulted neurology Creatinine improved Patient here for dizziness Some intermittent dizziness with exertion. Continue meclizine. BNP elevated along with history of lower extremity edema treated with diuretic raises concerns for new CHF. UA also concerning for UTI, however may be contaminant, follow urine culture, started on ceftriaxone. Diet: Heart healthy, dietary supplements GI Prophylaxis: Not currently indicated DVT Prophylaxis: Eliquis-on hold, SCD IV fluids: LR 100 mL/hour x1 L Lines/Tubes: Peripheral IV Code Status: Full code Time Spent With Patient Time: 59 minutes Subjective Date/time seen: 01/16/25 08:56 Interval history: New left arm and leg weakness yesterday, improved today. Started aspirin since off apixaban Eliquis on hold 2/ anemia Blood count trending down, if continues to trend down, may need to reconsider scope. Patient agreeable if needed. Patient would like to avoid an MRI due to back pain. Not a significant help per neurology recs but unable to confirm that this episode wasn't a TIA/CVA so would continue aspirin. Review of Systems Review of Systems: All systems reviewed & are unremarkable except as noted in HPI and below Exam Narrative: General - Awake and alert. No acute distress Eyes - PERRLA, EOM intact ENT - No thrush, No erythema Neck - No noticeable or palpable swelling Lymph Nodes - No lymphadenopathy Cardiovascular - RRR no m/r/g, no JVD Lungs: Clear to auscultation, No wheezing, use of accessory muscles, no crackles or wheezes. Skin - Skin warm and dry, no wounds or rashes Abdomen - Normal bowel sounds, abdomen soft and nontender Extremities - No edema, cyanosis or clubbing Musculoskeletal - 4/5 strength left arm, 5/5 strength right arm, bilateral legs 5/5 strength, normal range of motion, no swollen or erythematous joints. Neurological – Alert and oriented x 3, CN 2-12 grossly intact. Psych: Normal mood and affect Objective Data Vital Signs Vital Signs: Vital Signs - 24 hr 01/15/25 07:52 01/15/25 07:52 01/15/25 08:00 Temperature Pulse Rate 96 Respiratory Rate 20 Blood Pressure Pulse Oximetry 97 Oxygen Delivery Room Air Room Air 01/15/25 08:00 01/15/25 08:01 01/15/25 12:00 Temperature Pulse Rate 100 97 91 Respiratory Rate 20 Blood Pressure Pulse Oximetry Oxygen Delivery 01/15/25 13:28 01/15/25 13:37 01/15/25 14:00 Temperature 97.8 F Pulse Rate 88 88 89 Respiratory Rate 20 20 20 Blood Pressure 101/54 L Pulse Oximetry 95 Oxygen Delivery 01/15/25 16:00 01/15/25 20:00 01/15/25 21:11 Temperature Pulse Rate 89 92 95 Respiratory Rate 18 Blood Pressure Pulse Oximetry Oxygen Delivery 01/15/25 21:38 01/16/25 00:00 01/16/25 02:56 Temperature 98.5 F Pulse Rate 77 96 88 Respiratory Rate 18 14 Blood Pressure 121/54 L Pulse Oximetry 94 Oxygen Delivery 01/16/25 04:00 01/16/25 06:00 Temperature 98.4 F Pulse Rate 93 96 Respiratory Rate 16 Blood Pressure 131/54 L Pulse Oximetry 97 Oxygen Delivery Intake/Output Intake/Output: Intake & Output 01/13/25 01/14/25 01/15/25 01/16/25 23:59 23:59 23:59 23:59 Intake Total 1620 2540 2850 200 Balance 1620 2540 2850 200 Meds/Results Medications: Active Medications Generic Name Dose Route Start Last Admin Trade Name Freq PRN Reason Stop Dose Admin Acetaminophen 650 mg 01/10/25 08:17 01/13/25 04:31 Acetaminophen 325 Mg Tablet PO 650 mg Q4H PRN Administration Mild Pain (1-3) or Fever Albuterol/Ipratropium 3 ml 01/10/25 08:00 01/16/25 02:57 Ipratropium 0.5 Mg/Albuterol Sulfate 2.5 Mg Ampul.Neb 3 Ml INHALATION 3 ml Q6HRT RAMA Administration Alendronate Sodium 70 mg 01/13/25 06:30 01/13/25 06:38 Alendronate Sodium 70 Mg Tablet PO 70 mg Mo@0630 RAMA Administration Alprazolam 0.25 mg 01/10/25 14:06 01/16/25 01:05 Alprazolam (*Crx) 0.25 Mg Tablet PO 0.25 mg TID PRN Administration Anxiety Apixaban 5 mg 01/10/25 21:00 01/13/25 08:00 Apixaban 5 Mg Tablet PO 5 mg Q12HR RAMA Administration Aspirin 81 mg 01/16/25 09:00 Aspirin 81 Mg Enteric Tablet PO QAM RAMA Atorvastatin Calcium 40 mg 01/10/25 18:00 01/15/25 17:06 Atorvastatin 40 Mg Tablet PO 40 mg QPM RAMA Administration Benzonatate 100 mg 01/10/25 14:06 Benzonatate 100 Mg Capsule PO TID PRN cough Cefdinir 300 mg 01/16/25 09:00 Cefdinir 300 Mg Capsule PO 01/16/25 09:01 ONCE ONE Docusate Sodium 100 mg 01/10/25 14:20 01/15/25 08:47 Docusate Sodium 100 Mg Capsule PO 100 mg DAILY RAMA Administration Ferrous Sulfate 142 mg 01/16/25 12:00 Ferrous Sulfate Dried 142 Mg Tabcr PO DAILY@1200 [facility] Fluticasone/Umeclidinium/Vilanterol 1 puff 01/11/25 09:00 01/15/25 07:50 Fluticasone/Umeclidin/Vilanter 100-62.5-25 Mcg Ellipta INHALATION 1 puff DAILY RAMA Administration Furosemide 40 mg 01/10/25 14:20 01/15/25 08:47 Furosemide 40 Mg Tablet PO 40 mg DAILY RAMA Administration Hydrochlorothiazide 25 mg 01/10/25 14:25 01/10/25 15:14 Hydrochlorothiazide 25 Mg Tablet PO Not Given DAILY RAMA Levothyroxine Sodium 125 mcg 01/11/25 06:30 01/16/25 06:32 Levothyroxine Sodium 125 Mcg Tablet PO 125 mcg DAILY@0630 RAMA Administration Meclizine HCl 25 mg 01/10/25 14:06 01/13/25 17:33 Meclizine Hcl 25 Mg Tablet PO 25 mg QID PRN Administration dizziness Meloxicam 15 mg 01/10/25 14:20 01/15/25 08:47 Meloxicam 7.5 Mg Tablet PO 15 mg DAILY RAMA Administration Metolazone 2.5 mg 01/11/25 09:00 01/15/25 08:47 Metolazone 2.5 Mg Tablet PO 2.5 mg Q48HR RAMA Administration Pantoprazole Sodium 40 mg 01/15/25 17:00 01/15/25 17:06 Pantoprazole 40 Mg Tablet PO 40 mg BID RAMA Administration Perflutren Lipid Microsphere 0 ml 01/13/25 09:34 Perflutren Lipid Microspheres 1.5 Ml Vial Diluted To 10 Ml Total Volume IV PUSH 01/16/25 09:34 ONCE PRN adequate visualization Protocol Polyethylene Glycol 17 gm 01/10/25 14:06 Polyethylene Glycol 3350 17 Gm Powd.Pack PO DAILY PRN constipation Potassium Chloride 40 meq 01/12/25 09:00 01/15/25 08:47 Potassium Chloride 20 Meq Er Tablet PO 40 meq DAILY RAMA Administration Valsartan 160 mg 01/10/25 14:20 01/10/25 15:14 Valsartan 160 Mg Tablet PO Not Given DAILY RAMA Vitamin D 2,000 units 01/10/25 14:20 01/15/25 08:47 Cholecalciferol 1,000 Units Tablet PO 2,000 units DAILY RAMA Administration Radiology Results: ITS Impressions Chest X-Ray 01/10/25 06:32 Impression: Clear lungs. T11 compression deformity. Head CT 01/15/25 11:59 IMPRESSION: 1. No acute intracranial process. 2. 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 Labs Labs: Laboratory Results - last 24 hr 01/16/25 04:51 WBC 11.1 H RBC 3.50 L Hgb 7.2 L Hct 27.1 L MCV 77.4 L MCH 20.6 L MCHC 26.6 L RDW 21.2 H Plt Count 294 MPV 10.0 Sodium 138 Potassium 4.4 Chloride 104 Carbon Dioxide 27 Anion Gap 7 BUN 39 H Creatinine 1.52 H Estim Creat Clear Calc 23 Estimated GFR 32 L Glucose 126 H Calcium 8.8 Quality VTE Prophylaxis VTE prophylaxis: mechanical ordered Hospitalist MIPS Advance Care Plan I have confirmed that the patient's Advanced Care Plan is present, code status is documented, or surrogate decision maker is listed in patient medical record.: Yes Medication Reconciliation I have utilized all available resources to obtain, update and review the patients current medications (includes all prescriptions, OTC, herbals, cannabis, and nutritional supplements).: Yes
[2025-01-16] MEDS: MELOXICAM 7.5 MG TABLET 15 MG PO (08:24)
[2025-01-16] MEDS: DOCUSATE SODIUM 100 MG CAPSULE PO (08:24)
[2025-01-16] MEDS: ASPIRIN 81 MG ENTERIC TABLET PO (08:24)
[2025-01-16] MEDS: CHOLECALCIFEROL 1,000 UNITS TABLET 2000 UNITS PO (08:24)
[2025-01-16] MEDS: PANTOPRAZOLE 40 MG TABLET PO ×2 (08:24→17:25)
[2025-01-16] MEDS: FUROSEMIDE 40 MG TABLET PO (08:24)
[2025-01-16] MEDS: POTASSIUM CHLORIDE 20 MEQ ER TABLET 40 MEQ PO (08:24)
[2025-01-16] MEDS: CEFDINIR 300 MG CAPSULE PO (08:26)
[2025-01-16] MEDS: FLUTICASONE/UMECLIDIN/VILANTER 100-62.5-25 MCG ELLIPTA 1 PUFF INHALATION (08:38)
[2025-01-16] MEDS: FERROUS SULFATE DRIED 142 MG TABCR PO (11:53)
--- NOTE | 2025-01-16 17:15 | P.PNNEUR_ITS ---
Progress Note: A&P Assessment and Plan (1) Dizziness: Code(s): R42 - Dizziness and giddiness Status: Acute (2) Right-sided cerebrovascular accident (CVA): Code(s): I63.9 - Cerebral infarction, unspecified Status: Acute (3) Chronic anemia: Code(s): D64.9 - Anemia, unspecified Status: Acute (4) Acute kidney injury: Code(s): N17.9 - Acute kidney failure, unspecified Status: Acute (5) Essential hypertension: Code(s): I10 - Essential (primary) hypertension Status: Chronic Time Spent With Patient Time: in view of the cerebrovascular disease I will suggest a carotid Doppler study and lipid profile. The dizziness is intermittent. The possibility of vertebrobasilar insufficiency versus peripheral vessel pathology would be a consideration. However in view of the renal failure I would not suggest CT angiogram. She is feeling better today and we should continue to observe her. Subjective Date/time seen: 01/16/25 17:15 Interval history: The patient is 84 years old with history of episodic dizziness. There is also history of multiple other medical problems. Reviewing her records it was noted that her hemoglobin was 8.5 and white cell count was high at 18.6. Her GFR is 30. CT scan of the brain shows some chronic changes. 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 She has had a CVA with left arm weakness in A ugust of 2023 and she still has some residual weakness. Review of Systems Review of Systems: All systems reviewed & are unremarkable except as noted in HPI and below Exam Narrative: Fully conscious alert oriented to self time place and person. No aphasia or dysarthria. Examination head and neck shows no evidence of external injuries. Cranial nerves your testing intact. Motor system Shows mild weakness of the left upper limb power grade 4 +over 5. Normal strength right upper and both lower limbs. No involuntary movements are seen. Objective Data Vital Signs Vital Signs: Vital Signs - 24 hr 01/15/25 20:00 01/15/25 21:11 01/15/25 21:38 Temperature 98.5 F Pulse Rate 92 95 77 Respiratory Rate 18 18 Blood Pressure 121/54 L Pulse Oximetry 94 Oxygen Delivery 01/16/25 00:00 01/16/25 02:56 01/16/25 04:00 Temperature Pulse Rate 96 88 93 Respiratory Rate 14 Blood Pressure Pulse Oximetry Oxygen Delivery 01/16/25 06:00 01/16/25 08:00 01/16/25 08:00 Temperature 98.4 F Pulse Rate 96 98 Respiratory Rate 16 Blood Pressure 131/54 L Pulse Oximetry 97 Oxygen Delivery Room Air 01/16/25 08:38 01/16/25 08:38 01/16/25 08:48 Temperature Pulse Rate 90 89 Respiratory Rate 20 20 Blood Pressure Pulse Oximetry 92 Oxygen Delivery Room Air 01/16/25 12:00 01/16/25 13:45 01/16/25 14:58 Temperature 98.4 F Pulse Rate 101 H 83 85 Respiratory Rate 16 20 Blood Pressure 111/47 L Pulse Oximetry 94 Oxygen Delivery 01/16/25 15:06 01/16/25 16:00 Temperature Pulse Rate 85 92 Respiratory Rate 20 Blood Pressure Pulse Oximetry Oxygen Delivery Intake/Output Intake/Output: Intake & Output 01/13/25 01/14/25 01/15/25 01/16/25 23:59 23:59 23:59 23:59 Intake Total 1620 2540 2850 830 Balance 1620 2540 2850 830 Meds/Results Medications: Active Medications Generic Name Dose Route Start Last Admin Trade Name Freq PRN Reason Stop Dose Admin Acetaminophen 650 mg 01/10/25 08:17 01/13/25 04:31 Acetaminophen 325 Mg Tablet PO 650 mg Q4H PRN Administration Mild Pain (1-3) or Fever Albuterol/Ipratropium 3 ml 01/10/25 08:00 01/16/25 14:57 Ipratropium 0.5 Mg/Albuterol Sulfate 2.5 Mg Ampul.Neb 3 Ml INHALATION 3 ml Q6HRT DEJON Administration Alendronate Sodium 70 mg 01/13/25 06:30 01/13/25 06:38 Alendronate Sodium 70 Mg Tablet PO 70 mg Mo@0630 DEJON Administration Alprazolam 0.25 mg 01/10/25 14:06 01/16/25 01:05 Alprazolam (*Crx) 0.25 Mg Tablet PO 0.25 mg TID PRN Administration Anxiety Apixaban 5 mg 01/10/25 21:00 01/13/25 08:00 Apixaban 5 Mg Tablet PO 5 mg Q12HR DEJON Administration Aspirin 81 mg 01/16/25 09:00 01/16/25 08:24 Aspirin 81 Mg Enteric Tablet PO 81 mg QAM DEJON Administration Atorvastatin Calcium 40 mg 01/10/25 18:00 01/15/25 17:06 Atorvastatin 40 Mg Tablet PO 40 mg QPM DEJON Administration Benzonatate 100 mg 01/10/25 14:06 Benzonatate 100 Mg Capsule PO TID PRN cough Docusate Sodium 100 mg 01/10/25 14:20 01/16/25 08:24 Docusate Sodium 100 Mg Capsule PO 100 mg DAILY DEJON Administration Ferrous Sulfate 142 mg 01/16/25 12:00 01/16/25 11:53 Ferrous Sulfate Dried 142 Mg Tabcr PO 142 mg DAILY@1200 DEJON Administration Fluticasone/Umeclidinium/Vilanterol 1 puff 01/11/25 09:00 01/16/25 08:38 Fluticasone/Umeclidin/Vilanter 100-62.5-25 Mcg Ellipta INHALATION 1 puff DAILY DEJON Administration Furosemide 40 mg 01/10/25 14:20 01/16/25 08:24 Furosemide 40 Mg Tablet PO 40 mg DAILY DEJON Administration Hydrochlorothiazide 25 mg 01/10/25 14:25 01/10/25 15:14 Hydrochlorothiazide 25 Mg Tablet PO Not Given DAILY DEJON Levothyroxine Sodium 125 mcg 01/11/25 06:30 01/16/25 06:32 Levothyroxine Sodium 125 Mcg Tablet PO 125 mcg DAILY@0630 DEJON Administration Meclizine HCl 25 mg 01/10/25 14:06 01/13/25 17:33 Meclizine Hcl 25 Mg Tablet PO 25 mg QID PRN Administration dizziness Meloxicam 15 mg 01/10/25 14:20 01/16/25 08:24 Meloxicam 7.5 Mg Tablet PO 15 mg DAILY DEJON Administration Metolazone 2.5 mg 01/11/25 09:00 01/15/25 08:47 Metolazone 2.5 Mg Tablet PO 2.5 mg Q48HR DEJON Administration Pantoprazole Sodium 40 mg 01/15/25 17:00 01/16/25 08:24 Pantoprazole 40 Mg Tablet PO 40 mg BID DEJON Administration Polyethylene Glycol 17 gm 01/10/25 14:06 Polyethylene Glycol 3350 17 Gm Powd.Pack PO DAILY PRN constipation Potassium Chloride 40 meq 01/12/25 09:00 01/16/25 08:24 Potassium Chloride 20 Meq Er Tablet PO 40 meq DAILY DEJON Administration Valsartan 160 mg 01/10/25 14:20 01/10/25 15:14 Valsartan 160 Mg Tablet PO Not Given DAILY DEJON Vitamin D 2,000 units 01/10/25 14:20 01/16/25 08:24 Cholecalciferol 1,000 Units Tablet PO 2,000 units DAILY DEJON Administration Radiology Results: ITS Impressions Chest X-Ray 01/10/25 06:32 Impression: Clear lungs. T11 compression deformity. Head CT 01/15/25 11:59 IMPRESSION: 1. No acute intracranial process. 2. 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 Labs Labs: Laboratory Results - last 24 hr 01/16/25 04:51 WBC 11.1 H RBC 3.50 L Hgb 7.2 L Hct 27.1 L MCV 77.4 L MCH 20.6 L MCHC 26.6 L RDW 21.2 H Plt Count 294 MPV 10.0 Sodium 138 Potassium 4.4 Chloride 104 Carbon Dioxide 27 Anion Gap 7 BUN 39 H Creatinine 1.52 H Estim Creat Clear Calc 23 Estimated GFR 32 L Glucose 126 H Calcium 8.8
[2025-01-16] MEDS: ATORVASTATIN 40 MG TABLET PO (17:25)
[2025-01-16 18:13] LABS: Cholesterol 114 mg/dL (0-200); HDL Direct 59 mg/dL; Triglycerides 116 mg/dL (<150)
[2025-01-16 19:01] LABS: LDL Cholesterol Direct < 30 mg/dL
[2025-01-16] MEDS: ACETAMINOPHEN 325 MG TABLET 650 MG PO (21:27)
[2025-01-17] VITALS (14 sets, daily range): BP systolic 124–132; BP diastolic 43–52; PULSE 81–93; RESP 18–20; TEMP 36.5; O2SAT 93–100
[2025-01-17] MEDS: IPRATROPIUM 0.5 MG/ALBUTEROL SULFATE 2.5 MG AMPUL.NEB 3 ML INHALATION ×4 (02:38→20:23)
[2025-01-17] MEDS: ALPRAZolam (*CRX) 0.25 MG TABLET PO (06:19)
[2025-01-17] MEDS: LEVOTHYROXINE SODIUM 125 MCG TABLET PO (06:19)
[2025-01-17] MEDS: FLUTICASONE/UMECLIDIN/VILANTER 100-62.5-25 MCG ELLIPTA 1 PUFF INHALATION (06:47)
[2025-01-17 07:18] LABS: Hematocrit 28.7 % (37.0-47.0); Hemoglobin 7.6 g/dL (12.0-15.0); Mean Corpuscular HGB Conc 26.5 g/dl (32-36); Mean Corpuscular Volume 79.3 fl (80-100); Mean Platelet Volume 9.4 fl (7.4-10.4); Platelet Count Result 282 k/mm3 (150-375); Red Blood Count 3.62 M/mm3 (4.2-5.4); Red Cell Distribution Width 21.5 % (11.5-14.5); White Blood Count 9.1 K/mm3 (4.5-10.0)
[2025-01-17 07:29] LABS: Anion Gap 7 mmol/L (4-12); Blood Urea Nitrogen 36 mg/dL (7-17); Calcium 8.8 mg/dL (8.4-10.2); Carbon Dioxide 26 mmol/L (22-30); Chloride 103 mmol/L (98-107); Estimated CRCL calculation 23 ml/min; Estimated Glomerular Filt Rate 32; Glucose 94 mg/dL (65-110); Potassium 4.1 mmol/L (3.4-5.0); Sodium 136 mmol/L (137-145)
[2025-01-17] MEDS: PANTOPRAZOLE 40 MG TABLET PO ×2 (08:13→17:03)
[2025-01-17] MEDS: CHOLECALCIFEROL 1,000 UNITS TABLET 2000 UNITS PO (08:13)
[2025-01-17] MEDS: POTASSIUM CHLORIDE 20 MEQ ER TABLET 40 MEQ PO (08:13)
[2025-01-17] MEDS: ASPIRIN 81 MG ENTERIC TABLET PO (08:13)
[2025-01-17] MEDS: DOCUSATE SODIUM 100 MG CAPSULE PO (08:13)
[2025-01-17] MEDS: FERROUS SULFATE DRIED 142 MG TABCR PO (11:41)
--- NOTE | 2025-01-17 15:54 | P.PNIM_ITS ---
Progress Note: A&P Assessment and Plan (1) Acute kidney injury: Code(s): N17.9 - Acute kidney failure, unspecified Status: Acute (2) Dizziness: Code(s): R42 - Dizziness and giddiness Status: Acute (3) COPD (chronic obstructive pulmonary disease): Qualifiers: COPD type: COPD with acute lower respiratory infection Qualified Code(s): J44.0 - Chronic obstructive pulmonary disease with (acute) lower respiratory infection Code(s): J44.9 - Chronic obstructive pulmonary disease, unspecified Status: Acute (4) Acute hypokalemia: Code(s): E87.6 - Hypokalemia Status: Acute (5) Elevated brain natriuretic peptide (BNP) level: Code(s): R79.89 - Other specified abnormal findings of blood chemistry Status: Acute (6) UTI (urinary tract infection): Qualifiers: Urinary tract infection type: acute cystitis Hematuria presence: without hematuria Qualified Code(s): N30.00 - Acute cystitis without hematuria Code(s): N39.0 - Urinary tract infection, site not specified Status: Suspected (7) Hypothyroidism: Qualifiers: Hypothyroidism type: unspecified Qualified Code(s): E03.9 - Hypothy roidism, unspecified Code(s): E03.9 - Hypothyroidism, unspecified Status: Chronic (8) Essential hypertension: Code(s): I10 - Essential (primary) hypertension Status: Chronic (9) Chronic anemia: Code(s): D64.9 - Anemia, unspecified Status: Acute (10) Occult blood in stools: Code(s): R19.5 - Other fecal abnormalities Status: Acute (11) Mitral valve stenosis: Code(s): I05.0 - Rheumatic mitral stenosis Status: Acute Plan 84 y/o F with PMH of vertigo, CVA, HTN, GERD, hypothyroidism, COPD, and 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 The patient presents here from home on 01/10 for further evaluation of dizziness and shortness of breath. She reports she has been dizzy for the past 2 days. She further describes this as a haze and like the room was spinning. She has a history of vertigo, however she reports the dizziness felt different than her usual. Now has mostly resolved, patient took her home Meclizine which eventually helped partial resolve her symptoms. States she still has a little dizziness with exertion. She is also reporting worsening shortness of breath and a chronic cough for the past 2 months, however has some level of chronic shortness of breath due to COPD. Cough has been nonproductive. She initially sought care with her PCP 2 weeks ago who increased her diuretics - she reports her LE edema significantly improved. 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 She denies associated nausea, vomiting, diarrhea, fever, chills, chest pain, syncope, or abdominal pain. She also denies dysuria, urinary frequency, urinary hesitancy, flank pain, or suprapubic pain. Initial VS at presentation: 97.30° F, HR 90, R 22, 133/92, and 96% on RA. ED workup showed: WBC 18.6, hemoglobin 8.5 (previously 9.4 on 11/17/2024), potassium 2.9, creatinine 1.61 and GFR 30 (previously 1.36 and GFR 37 on 11/17/2024), BNP 1180, and initial troponin was 0.030, normal TSH, UA suspicious for UTI) however many epithelial cells, may be contaminant). CXR showed clear lungs and a T11 compression deformity. Head CT showed no acute intracranial process and moderate scattered white matter hypoattenuation consistent with chronic small-vessel ischemic disease as well as a few scattered old lacunar inf arcts in the bilateral periventricular white matter in caudate nuclei. # Acute kidney injury: Creatinine 1.61 and GFR 30. Previously 1.36 and GFR 37 on 11/17/2024. Possible UTI, however many epithelial cells which may indicate contamination. Started on ABX, follow culture. May be contributing to worsening renal function. BNP elevated, no known history of CHF. Has been reporting shortness of breath and cough. No echo on file, ordered. Received some IV fluid on admission. Trend renal function. Correct electrolytes as needed, monitor. Furosemide metolazone and meloxicam on hold. Creatinine stable # Dizziness: Dizziness x2 days. patient has severe mitral valve stenosis on TTE which could be contributing History of vertigo and stroke. No change in dizziness with meclizine p.o. prior to arrival. Continue patient's home med: Meclizine 15 mg daily. fall precautions stable 01/12- short run of vtach, replaced mg, k. tsh was checked and normal -iron panel cardiology consulted # COPD (chronic obstructive pulmonary disease): Wheezing and rhonchi upon arrival to the ED on 01/10. DuoNebs q.6 rama. Will hold on abx and steroids, no increased O2 requirement and cough remains dry (no increased sputum production). stable, no sob monitor for now IS, out of bed TID and prn # Acute hypokalemia: Potassium 2.9 upon arrival. Replete and monitor # Elevated brain natriuretic peptide (BNP) level: # UTI (urinary tract infection): UA showed 2+ leuks, 11-20 WBC, many epithelial cells. Contaminant versus infection. Check urine culture, follow. Started on ceftriaxone on 01/10. 01/12- continue antibiotics-changed to po 01/14 cefdinir 300 mg bid (on 01/12) # Hypothyroidism: Continue home Synthroid. TSH 1.77 on 01/10/2025. # Essential hypertension: Chronic, stable Continue home medications: Lasix, metolazone. Hold valsartan-hydrochlorothiazide, believes she was taken off this medication. Monitor- 124/51 # Chronic anemia: hg dropped to 6.7/19.4 during the hospitalization Eliquis on hold type/screen and 1 unit if PRBC ordered Iron studies ordered:iron 29, %satur 7, tibc 404 gi is following- no acute interventions 01/14 hg stable-continue to trend # Occult blood in stools: Patient denies blood in stool --GI consulted # Mitral valve stenosis: BNP 1180 01/13 TTE Notable for severe mitral valve stenosis 1. Complete two-dimensional, color flow and Doppler transthoracic echocardiogram is performed. 2. Left ventricular chamber dimension is normal. 3. Left ventricular systolic function is normal, estimated at 65-70%. 4. There is moderately increased left ventricular wall thickness. 5. The left ventricular diastolic function is grade I diastolic dysfunction. 6. Right ventricular systolic function is normal. 7. Left atrial chamber dimension is severely enlarged. 8. Right atrial chamber dimension is mildly enlarged. 9. There is moderate to severe aortic valve stenosis with a peak velocity of 347 cm/s, mean gradient of 28 mmHg, and aortic valve area of 0.9 cm2. 10. There is mild aortic valve regurgitation. 11. The mitral valve has thickened leaflets. 12. The mitral valve annulus is severely calcified. 13. There is severe mitral valve stenosis. Mean gradient of 12mmHg. 14. There is mild mitral valve regurgitation. 15. There is mild tricuspid valve regurgitation. 16. There is small anterior pericardial effusion. Monitor I&Os daily weights. CXR showed no evidence of pulmonary congestion. On Lasix 40 mg p.o. daily and metolazone 2.5 mg Q 48 hours - hold since creatinine trending up. Hold HCTZ 25 mg daily (believes her provider d/c'd this medication and generally would choose either furosemide or hctz) Initially presented with rhonchi and wheezing on exam, does have history of COPD. Shortness of breath secondary to COPD versus new CHF --Needs outpatient follow up with cardiology, valve clinic for severe mitral valve stenosis --stress test to evaluate for underlying CAD as cause for NSVT - can be done as outpatient # new left arm and leg weakness 01/15/[address] unchanged. # complete occlusion left internal carotid artery. # carotid artery stenosis right more than 70% need to see vascular surgery which she already following with. # moderate aortic stenosis # history of CVA # atrial fibrillation detected on loop recorder. Started on Eliquis.. Patient was reluctant to take warfarin given moderate mitral stenosis. # Diet: Heart healthy, dietary supplements # DVT Prophylaxis: Eliquis-on hold, SCD # Code Status: Full code Subjective Date/time seen: 01/17/25 15:54 Interval history: Denies any new complaint. Dizziness has improved. Chart reviewed. Review of Systems Review of Systems: All systems reviewed & are unremarkable except as noted in HPI and below Exam Narrative: General - Awake and alert. No acute distress Eyes - PERRLA, EOM intact ENT - No thrush, No erythema Neck - No noticeable or palpable swelling Lymph Nodes - No lymphadenopathy Cardiovascular - RRR no m/r/g, no JVD Lungs: Clear to auscultation, No wheezing, use of accessory muscles, no crackles or wheezes. Skin - Skin warm and dry, no wounds or rashes Abdomen - Normal bowel sounds, abdomen soft and nontender Extremities - No edema, cyanosis or clubbing Musculoskeletal - 4/5 strength left arm, 5/5 strength right arm, bilateral legs 5/5 strength, normal range of motion, no swollen or erythematous joints. Neurological – Alert and oriented x 3, CN 2-12 grossly intact. Psych: Normal mood and affect Objective Data Vital Signs Vital Signs: Vital Signs - 24 hr 01/16/25 16:00 01/16/25 20:28 01/16/25 20:28 Temperature Pulse Rate 92 91 91 Respiratory Rate 20 18 Blood Pressure Pulse Oximetry 93 Oxygen Delivery Room Air Fraction of Inspired Oxygen 01/16/25 20:32 01/16/25 20:40 01/17/25 02:38 Temperature 97.9 F Pulse Rate 87 92 86 Respiratory Rate 20 20 18 Blood Pressure 128/48 L Pulse Oximetry 94 Oxygen Delivery Fraction of Inspired Oxygen 01/17/25 02:48 01/17/25 05:33 01/17/25 06:47 Temperature 97.7 F Pulse Rate 88 81 85 Respiratory Rate 18 20 18 Blood Pressure 124/49 L Pulse Oximetry 95 Oxygen Delivery Fraction of Inspired Oxygen 01/17/25 06:48 01/17/25 08:13 01/17/25 13:42 Temperature Pulse Rate 88 84 Respiratory Rate 20 20 18 Blood Pressure Pulse Oximetry 93 93 Oxygen Delivery Room Air Room Air Fraction of Inspired Oxygen 21 01/17/25 14:00 Temperature Pulse Rate 88 Respiratory Rate Blood Pressure 128/43 L Pulse Oximetry 96 Oxygen Delivery Fraction of Inspired Oxygen Intake/Output Intake/Output: Intake & Output 01/14/25 01/15/25 01/16/25 01/17/25 23:59 23:59 23:59 23:59 Intake Total 2540 2850 1040 1110 Balance 2540 2850 1040 1110 Meds/Results Medications: Active Medications Generic Name Dose Route Start Last Admin Trade Name Freq PRN Reason Stop Dose Admin Acetaminophen 650 mg 01/10/25 08:17 01/16/25 21:27 Acetaminophen 325 Mg Tablet PO 650 mg Q4H PRN Administration Mild Pain (1-3) or Fever Albuterol/Ipratropium 3 ml 01/10/25 08:00 01/17/25 13:41 Ipratropium 0.5 Mg/Albuterol Sulfate 2.5 Mg Ampul.Neb 3 Ml INHALATION 3 ml Q6HRT RAMA Administration Alendronate Sodium 70 mg 01/13/25 06:30 01/13/25 06:38 Alendronate Sodium 70 Mg Tablet PO 70 mg Mo@0630 RAMA Administration Alprazolam 0.25 mg 01/10/25 14:06 01/17/25 06:19 Alprazolam (*Crx) 0.25 Mg Tablet PO 0.25 mg TID PRN Administration Anxiety Apixaban 5 mg 01/10/25 21:00 01/13/25 08:00 Apixaban 5 Mg Tablet PO 5 mg Q12HR RAMA Administration Aspirin 81 mg 01/16/25 09:00 01/17/25 08:13 Aspirin 81 Mg Enteric Tablet PO 81 mg QAM RAMA Administration Atorvastatin Calcium 40 mg 01/10/25 18:00 01/16/25 17:25 Atorvastatin 40 Mg Tablet PO 40 mg QPM RAMA Administration Benzonatate 100 mg 01/10/25 14:06 Benzonatate 100 Mg Capsule PO TID PRN cough Docusate Sodium 100 mg 01/10/25 14:20 01/17/25 08:13 Docusate Sodium 100 Mg Capsule PO 100 mg DAILY RAMA Administration Ferrous Sulfate 142 mg 01/16/25 12:00 01/17/25 11:41 Ferrous Sulfate Dried 142 Mg Tabcr PO 142 mg DAILY@1200 RAMA Administration Fluticasone/Umeclidinium/Vilanterol 1 puff 01/11/25 09:00 01/17/25 06:47 Fluticasone/Umeclidin/Vilanter 100-62.5-25 Mcg Ellipta INHALATION 1 puff DAILY RAMA Administration Furosemide 40 mg 01/10/25 14:20 01/16/25 08:24 Furosemide 40 Mg Tablet PO 40 mg DAILY RAMA Administration Hydrochlorothiazide 25 mg 01/10/25 14:25 01/10/25 15:14 Hydrochlorothiazide 25 Mg Tablet PO Not Given DAILY RAMA Levothyroxine Sodium 125 mcg 01/11/25 06:30 01/17/25 06:19 Levothyroxine Sodium 125 Mcg Tablet PO 125 mcg DAILY@0630 RAMA Administration Meclizine HCl 25 mg 01/10/25 14:06 01/13/25 17:33 Meclizine Hcl 25 Mg Tablet PO 25 mg QID PRN Administration dizziness Meloxicam 15 mg 01/10/25 14:20 01/16/25 08:24 Meloxicam 7.5 Mg Tablet PO 15 mg DAILY RAMA Administration Metolazone 2.5 mg 01/11/25 09:00 01/15/25 08:47 Metolazone 2.5 Mg Tablet PO 2.5 mg Q48HR RAMA Administration Pantoprazole Sodium 40 mg 01/15/25 17:00 01/17/25 08:13 Pantoprazole 40 Mg Tablet PO 40 mg BID RAMA Administration Polyethylene Glycol 17 gm 01/10/25 14:06 Polyethylene Glycol 3350 17 Gm Powd.Pack PO DAILY PRN constipation Potassium Chloride 40 meq 01/12/25 09:00 01/17/25 08:13 Potassium Chloride 20 Meq Er Tablet PO 40 meq DAILY RAMA Administration Valsartan 160 mg 01/10/25 14:20 01/10/25 15:14 Valsartan 160 Mg Tablet PO Not Given DAILY RAMA Vitamin D 2,000 units 01/10/25 14:20 01/17/25 08:13 Cholecalciferol 1,000 Units Tablet PO 2,000 units DAILY RAMA Administration Radiology Results: ITS Impressions Chest X-Ray 01/10/25 06:32 Impression: Clear lungs. T11 compression deformity. Head CT 01/15/25 11:59 IMPRESSION: 1. No acute intracranial process. 2. 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 Carotid Doppler Study 01/17/25 12:30 IMPRESSION: 1. >=70% (but less than near occlusion) stenosis in the right internal carotid artery. 2. 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 There is also no identifiable flow within the left vertebral artery which may also be occluded. Consider further evaluation with carotid CT angiogram for more definitive determination. Labs Labs: Laboratory Results - last 24 hr 01/16/25 01/17/25 17:59 07:08 WBC 9.1 RBC 3.62 L Hgb 7.6 L Hct 28.7 L MCV 79.3 L MCH 21.0 L MCHC 26.5 L RDW 21.5 H Plt Count 282 MPV 9.4 Sodium 136 L Potassium 4.1 Chloride 103 Carbon Dioxide 26 Anion Gap 7 BUN 36 H Creatinine 1.52 H Estim Creat Clear Calc 23 Estimated GFR 32 L Glucose 94 Calcium 8.8 Triglycerides 116 Cholesterol 114 LDL Cholesterol Direct < 30 HDL Direct 59
[2025-01-17] MEDS: ATORVASTATIN 40 MG TABLET PO (17:03)
[2025-01-18] VITALS (17 sets, daily range): BP systolic 127–154; BP diastolic 52–69; PULSE 83–99; RESP 16–20; TEMP 36.3–36.6; O2SAT 91–100
[2025-01-18] MEDS: ACETAMINOPHEN 325 MG TABLET 650 MG PO ×2 (01:11→22:00)
[2025-01-18] MEDS: ALPRAZolam (*CRX) 0.25 MG TABLET PO ×3 (01:12→22:00)
[2025-01-18] MEDS: IPRATROPIUM 0.5 MG/ALBUTEROL SULFATE 2.5 MG AMPUL.NEB 3 ML INHALATION ×4 (02:07→20:22)
[2025-01-18] MEDS: LEVOTHYROXINE SODIUM 125 MCG TABLET PO (05:58)
[2025-01-18 06:13] LABS: Basophils Percent Auto 0.4 % (0.2-1.2); Eosinophils Absolute Auto 0.4 K/mm3 (0-0.3); Eosinophils Percent Auto 4.6 % (0-4.4); Hematocrit 25.1 % (37.0-47.0); Immature Granulocyte Absolute 0.09 K/mm3 (0.00-0.031); Immature Granulocyte Percent A 1.1 % (0-0.5); Lymphocytes Absolute Auto 1.54 K/mm3 (0.9-3.2); Lymphocytes Percent Auto 18.1 % (18.3-44.2); Mean Corpuscular HGB Conc 26.7 g/dl (32-36); Mean Corpuscular Volume 78.7 fl (80-100); Mean Platelet Volume 9.3 fl (7.4-10.4); Monocytes Percent Auto 11.5 % (2.6-8.5); Neutrophils Absolute Auto 5.5 K/mm3 (1.3-6.7); Neutrophils Percent Auto 64.3 % (45.5-73.1); Platelet Count Result 259 k/mm3 (150-375); Red Blood Count 3.19 M/mm3 (4.2-5.4); Red Cell Distribution Width 21.2 % (11.5-14.5); White Blood Count 8.5 K/mm3 (4.5-10.0)
[2025-01-18 06:15] LABS: Hemoglobin 6.7 g/dL (12.0-15.0)
[2025-01-18 06:35] LABS: Alanine Aminotransferase 17 U/L (6-35); Albumin Level 3.1 g/dL (3.5-5.1); Alkaline Phosphatase 55 U/L (38-126); Anion Gap 8 mmol/L (4-12); Aspartate Amino Transferase 24 U/L (14-36); Bilirubin,Total 0.5 mg/dL (0.2-1.3); Blood Urea Nitrogen 32 mg/dL (7-17); Calcium 8.8 mg/dL (8.4-10.2); Carbon Dioxide 25 mmol/L (22-30); Chloride 107 mmol/L (98-107); Estimated CRCL calculation 29 ml/min; Estimated Glomerular Filt Rate 36; Glucose 99 mg/dL (65-110); Magnesium 1.4 mg/dL (1.6-2.3); Potassium 4.2 mmol/L (3.4-5.0); Sodium 140 mmol/L (137-145)
[2025-01-18 06:53] LABS: Anisocytosis 1+; Hypochromasia 1+; Platelet Estimate Adequate (Adequate); Schistocytes None Seen; Target Cells 1+
[2025-01-18] MEDS: FLUTICASONE/UMECLIDIN/VILANTER 100-62.5-25 MCG ELLIPTA 1 PUFF INHALATION (07:51)
[2025-01-18] MEDS: SODIUM CHLORIDE 0.9% IV 250 ML 30 ML IV CONT (09:11)
[2025-01-18] MEDS: ASPIRIN 81 MG ENTERIC TABLET PO (09:11)
[2025-01-18] MEDS: PANTOPRAZOLE 40 MG TABLET PO ×2 (09:11→17:08)
[2025-01-18] MEDS: CHOLECALCIFEROL 1,000 UNITS TABLET 2000 UNITS PO (09:11)
[2025-01-18] MEDS: POTASSIUM CHLORIDE 20 MEQ ER TABLET 40 MEQ PO (09:11)
--- NOTE | 2025-01-18 09:57 | PM.IMPN ---
Progress Note: A&P Assessment and Plan (1) Acute kidney injury: Code(s): N17.9 - Acute kidney failure, unspecified Status: Acute (2) Dizziness: Code(s): R42 - Dizziness and giddiness Status: Acute (3) COPD (chronic obstructive pulmonary disease): Qualifiers: COPD type: COPD with acute lower respiratory infection Qualified Code(s): J44.0 - Chronic obstructive pulmonary disease with (acute) lower respiratory infection Code(s): J44.9 - Chronic obstructive pulmonary disease, unspecified Status: Acute (4) Acute hypokalemia: Code(s): E87.6 - Hypokalemia Status: Acute (5) Elevated brain natriuretic peptide (BNP) level: Code(s): R79.89 - Other specified abnormal findings of blood chemistry Status: Acute (6) UTI (urinary tract infection): Qualifiers: Hematuria presence: without hematuria Urinary tract infection type: acute cystitis Qualified Code(s): N30.00 - Acute cystitis without hematuria Code(s): N39.0 - Urinary tract infection, site not specified Status: Suspected (7) Hypothyroidism: Qualifiers: Hypothyroidism type: unspecified Qualified Code(s): E03.9 - Hypothyroidism, unspecified Code(s): E03.9 - Hypothyroidism, unspecified Status: Chronic (8) Essential hypertension: Code(s): I10 - Essential (primary) hypertension Status: Chronic (9) Chronic anemia: Code(s): D64.9 - Anemia, unspecified Status: Acute (10) Occult blood in stools: Code(s): R19.5 - Other fecal abnormalities Status: Acute (11) Mitral valve stenosis: Code(s): I05.0 - Rheumatic mitral stenosis Status: Acute Plan 84 y/o F with PMH of vertigo, CVA, HTN, GERD, hypothyroidism, COPD, and 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 The patient presents here from home on 01/10 for further evaluation of dizziness and shortness of breath. She reports she has been dizzy for the past 2 days. She further describes this as a haze and like the room was spinning. She has a history of vertigo, however she reports the dizziness felt different than her usual. Now has mostly resolved, patient took her home Meclizine which eventually helped partial resolve her symptoms. States she still has a little dizziness with exertion. She is also reporting worsening shortness of breath and a chronic cough for the past 2 months, however has some level of chronic shortness of breath due to COPD. Cough has been nonproductive. She initially sought care with her PCP 2 weeks ago who increased her diuretics - she reports her LE edema significantly improved. Patient saw her professor of biochemistry 3 days ago and was given a new prescription, she is unsure of the name - possibly anticoagulant. She denies associated nausea, vomiting, diarrhea, fever, chills, chest pain, syncope, or abdominal pain. She also denies dysuria, urinary frequency, urinary hesitancy, flank pain, or suprapubic pain. Initial VS at presentation: 97.30° F, HR 90, R 22, 133/92, and 96% on RA. ED workup showed: WBC 18.6, hemoglobin 8.5 (previously 9.4 on 11/17/2024), potassium 2.9, creatinine 1.61 and GFR 30 (previously 1.36 and GFR 37 on 11/17/2024), BNP 1180, and initial troponin was 0.030, normal TSH, UA suspicious for UTI) however many epithelial cells, may be contaminant). CXR showed clear lungs and a T11 compression deformity. Head CT showed no acute intracranial process and moderate scattered white matter hypoattenuation consistent with chronic small-vessel ischemic disease as well as a few scattered old lacunar infarcts in the bilateral periventricular white matter in caudate nuclei. # Acute kidney injury: Creatinine 1.61 and GFR 30. Previously 1.36 and GFR 37 on 11/17/2024. Possible UTI, however many epithelial cells which may indicate contamination. Started on ABX, follow culture. May be contributing to worsening renal function. BNP elevated, no known history of CHF. Has been reporting shortness of breath and cough. No echo on file, ordered. Received some IV fluid on admission. Trend renal function. Correct electrolytes as needed, monitor. Furosemide metolazone and meloxicam on hold. Creatinine stable # Dizziness: Dizziness x2 days. patient has severe mitral valve stenosis on TTE which could be contributing History of vertigo and stroke. No change in dizziness with meclizine p.o. prior to arrival. Continue patient's home med: Meclizine 15 mg daily. fall precautions stable 01/12- short run of vtach, replaced mg, k. tsh was checked and normal -iron panel cardiology consulted # COPD (chronic obstructive pulmonary disease): Wheezing and rhonchi upon arrival to the ED on 01/10. DuoNebs q.6 rama. Will hold on abx and steroids, no increased O2 requirement and cough remains dry (no increased sputum production). stable, no sob monitor for now IS, out of bed TID and prn # Acute hypokalemia: Potassium 2.9 upon arrival. Replete and monitor # Elevated brain natriuretic peptide (BNP) level: # UTI (urinary tract infection): UA showed 2+ leuks, 11-20 WBC, many epithelial cells. Contaminant versus infection. Check urine culture, follow. Started on ceftriaxone on 01/10. 01/12- continue antibiotics-changed to po 01/14 cefdinir 300 mg bid (on 01/12) # Hypothyroidism: Continue home Synthroid. TSH 1.77 on 01/10/2025. # Essential hypertension: Chronic, stable Continue home medications: Lasix, metolazone. Hold valsartan-hydrochlorothiazide, believes she was taken off this medication. Monitor- 124/51 # Chronic anemia: hg dropped to 6.7/19.4 during the hospitalization Eliquis on hold type/screen and 1 unit if PRBC ordered Iron studies ordered:iron 29, %satur 7, tibc 404 gi is following- no acute interventions 01/14 hg stable-continue to trend 01/18 hemoglobin down to 6.7 again. Transfuse 1 unit PRBC GI reconsulted as she will need to be on anticoagulation due to atrial fibrillation # Occult blood in stools: Patient denies blood in stool --GI consulted # Mitral valve stenosis: BNP 1180 01/13 TTE Notable for severe mitral valve stenosis 1. Complete two-dimensional, color flow and Doppler transthoracic echocardiogram is performed. 2. Left ventricular chamber dimension is normal. 3. Left ventricular systolic function is normal, estimated at 65-70%. 4. There is moderately increased left ventricular wall thickness. 5. The left ventricular diastolic function is grade I diastolic dysfunction. 6. Right ventricular systolic function is normal. 7. Left atrial chamber dimension is severely enlarged. 8. Right atrial chamber dimension is mildly enlarged. 9. There is moderate to severe aortic valve stenosis with a peak velocity of 347 cm/s, mean gradient of 28 mmHg, and aortic valve area of 0.9 cm2. 10. There is mild aortic valve regurgitation. 11. The mitral valve has thickened leaflets. 12. The mitral valve annulus is severely calcified. 13. There is severe mitral valve stenosis. Mean gradient of 12mmHg. 14. There is mild mitral valve regurgitation. 15. There is mild tricuspid valve regurgitation. 16. There is small anterior pericardial effusion. Monitor I&Os daily weights. CXR showed no evidence of pulmonary congestion. On Lasix 40 mg p.o. daily and metolazone 2.5 mg Q 48 hours - hold since creatinine trending up. Hold HCTZ 25 mg daily (believes her provider d/c'd this medication and generally would choose either furosemide or hctz) Initially presented with rhonchi and wheezing on exam, does have history of COPD. Shortness of breath secondary to COPD versus new CHF --Needs outpatient follow up with cardiology, valve clinic for severe mitral valve stenosis --stress test to evaluate for underlying CAD as cause for NSVT - can be done as outpatient # new left arm and leg weakness 01/15/[address] unchanged. This is stable # complete occlusion left internal carotid artery. # carotid artery stenosis right more than 70% need to see vascular surgery which she already following with. # moderate aortic stenosis # history of CVA # atrial fibrillation detected on loop recorder. Started on Eliquis.. Patient was reluctant to take warfarin given moderate mitral stenosis. Eliquis on hold due to anemia # Diet: Heart healthy, dietary supplements # DVT Prophylaxis: Eliquis-on hold, SCD # Code Status: Full code Subjective Date/time seen: 01/18/25 09:57 Interval history: H&H drop down to 6.7 this a.m.. Plans for 1 unit of blood transfusion no signs of bleeding. Anticoagulation on hold. Patient did have FOBT positive. Discussed with the patient and daughter at bedside Review of Systems Review of Systems: All systems reviewed & are unremarkable except as noted in HPI and below Exam Narrative: General - Awake and alert. No acute distress Eyes - PERRLA, EOM intact ENT - No thrush, No erythema Neck - No noticeable or palpable swelling Lymph Nodes - No lymphadenopathy Cardiovascular - RRR no m/r/g, no JVD Lungs: Clear to auscultation, No wheezing, use of accessory muscles, no crackles or wheezes. Skin - Skin warm and dry, no wounds or rashes Abdomen - Normal bowel sounds, abdomen soft and nontender Extremities - No edema, cyanosis or clubbing Musculoskeletal - 4/5 strength left arm, 5/5 strength right arm, bilateral legs 5/5 strength, normal range of motion, no swollen or erythematous joints. Neurological – Alert and oriented x 3, CN 2-12 grossly intact. Psych: Normal mood and affect Objective Data Vital Signs Vital Signs: Vital Signs - 24 hr 01/17/25 13:42 01/17/25 13:49 01/17/25 14:00 Temperature Pulse Rate 84 84 88 Respiratory Rate 18 18 Blood Pressure 128/43 L Pulse Oximetry 96 Oxygen Delivery Fraction of Inspired Oxygen 01/17/25 20:14 01/17/25 20:24 01/17/25 20:26 Temperature 97.7 F Pulse Rate 84 93 93 Respiratory Rate 18 18 Blood Pressure 132/52 L Pulse Oximetry 100 95 Oxygen Delivery Room Air Fraction of Inspired Oxygen 01/17/25 20:33 01/18/25 02:07 01/18/25 02:16 Temperature Pulse Rate 90 99 93 Respiratory Rate 18 18 18 Blood Pressure Pulse Oximetry Oxygen Delivery Fraction of Inspired Oxygen 01/18/25 04:11 01/18/25 07:44 01/18/25 07:44 Temperature 97.7 F Pulse Rate 84 91 Respiratory Rate 20 20 Blood Pressure 140/53 L Pulse Oximetry 97 91 Oxygen Delivery Room Air Fraction of Inspired Oxygen 21 01/18/25 07:51 01/18/25 09:30 Temperature Pulse Rate 95 Respiratory Rate 20 20 Blood Pressure Pulse Oximetry 91 Oxygen Delivery Room Air Fraction of Inspired Oxygen 21 Intake/Output Intake/Output: Intake & Output 01/15/25 01/16/25 01/17/25 01/18/25 23:59 23:59 23:59 23:59 Intake Total 2850 1040 1900 390 Balance 2850 1040 1900 390 Meds/Results Medications: Active Medications Generic Name Dose Route Start Last Admin Trade Name Patrice PRN Reason Stop Dose Admin Acetaminophen 650 mg 01/10/25 08:17 01/18/25 01:11 Acetaminophen 325 Mg Tablet PO 650 mg Q4H PRN Administration Mild Pain (1-3) or Fever Albuterol/Ipratropium 3 ml 01/10/25 08:00 01/18/25 07:44 Ipratropium 0.5 Mg/Albuterol Sulfate 2.5 Mg Ampul.Neb 3 Ml INHALATION 3 ml Q6HRT RAMA Administration Alendronate Sodium 70 mg 01/13/25 06:30 01/13/25 06:38 Alendronate Sodium 70 Mg Tablet PO 70 mg Mo@0630 RAMA Administration Alprazolam 0.25 mg 01/10/25 14:06 01/18/25 09:11 Alprazolam (*Crx) 0.25 Mg Tablet PO 0.25 mg TID PRN Administration Anxiety Apixaban 5 mg 01/10/25 21:00 01/13/25 08:00 Apixaban 5 Mg Tablet PO 5 mg Q12HR RAMA Administration Aspirin 81 mg 01/16/25 09:00 01/18/25 09:11 Aspirin 81 Mg Enteric Tablet PO 81 mg QAM RAMA Administration Atorvastatin Calcium 40 mg 01/10/25 18:00 01/17/25 17:03 Atorvastatin 40 Mg Tablet PO 40 mg QPM RAMA Administration Benzonatate 100 mg 01/10/25 14:06 Benzonatate 100 Mg Capsule PO TID PRN cough Docusate Sodium 100 mg 01/10/25 14:20 01/18/25 09:12 Docusate Sodium 100 Mg Capsule PO Not Given DAILY [facility] Ferrous Sulfate 142 mg 01/16/25 12:00 01/17/25 11:41 Ferrous Sulfate Dried 142 Mg Tabcr PO 142 mg DAILY@1200 RAMA Administration Fluticasone/Umeclidinium/Vilanterol 1 puff 01/11/25 09:00 01/18/25 07:51 Fluticasone/Umeclidin/Vilanter 100-62.5-25 Mcg Ellipta INHALATION 1 puff DAILY RAMA Administration Furosemide 40 mg 01/10/25 14:20 01/16/25 08:24 Furosemide 40 Mg Tablet PO 40 mg DAILY RAMA Administration Hydrochlorothiazide 25 mg 01/10/25 14:25 01/10/25 15:14 Hydrochlorothiazide 25 Mg Tablet PO Not Given DAILY RAMA Sodium Chloride 250 mls @ 30 mls/hr 01/18/25 06:33 01/18/25 09:11 Normal Saline Iv IV CONT 01/18/25 14:52 30 mls/hr .Q8H20M STA Administration Levothyroxine Sodium 125 mcg 01/11/25 06:30 01/18/25 05:58 Levothyroxine Sodium 125 Mcg Tablet PO 125 mcg DAILY@0630 RAMA Administration Meclizine HCl 25 mg 01/10/25 14:06 01/13/25 17:33 Meclizine Hcl 25 Mg Tablet PO 25 mg QID PRN Administration dizziness Meloxicam 15 mg 01/10/25 14:20 01/16/25 08:24 Meloxicam 7.5 Mg Tablet PO 15 mg DAILY RAMA Administration Metolazone 2.5 mg 01/11/25 09:00 01/15/25 08:47 Metolazone 2.5 Mg Tablet PO 2.5 mg Q48HR RAMA Administration Pantoprazole Sodium 40 mg 01/15/25 17:00 01/18/25 09:11 Pantoprazole 40 Mg Tablet PO 40 mg BID RAMA Administration Polyethylene Glycol 17 gm 01/10/25 14:06 Polyethylene Glycol 3350 17 Gm Powd.Pack PO DAILY PRN constipation Potassium Chloride 40 meq 01/12/25 09:00 01/18/25 09:11 Potassium Chloride 20 Meq Er Tablet PO 40 meq DAILY RAMA Administration Valsartan 160 mg 01/10/25 14:20 01/10/25 15:14 Valsartan 160 Mg Tablet PO Not Given DAILY RAMA Vitamin D 2,000 units 01/10/25 14:20 01/18/25 09:11 Cholecalciferol 1,000 Units Tablet PO 2,000 units DAILY RAMA Administration Radiology Results: ITS Impressions Chest X-Ray 01/10/25 06:32 Impression: Clear lungs. T11 compression deformity. Head CT 01/15/25 11:59 IMPRESSION: 1. No acute intracranial process. 2. 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 Carotid Doppler Study 01/17/25 12:30 IMPRESSION: 1. >=70% (but less than near occlusion) stenosis in the right internal carotid artery. 2. 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 There is also no identifiable flow within the left vertebral artery which may also be occluded. Consider further evaluation with carotid CT angiogram for more definitive determination. Labs Labs: Laboratory Results - last 24 hr 01/18/25 05:54 WBC 8.5 RBC 3.19 L Hgb 6.7 L* Hct 25.1 L MCV 78.7 L MCH 21.0 L MCHC 26.7 L RDW 21.2 H Plt Count 259 MPV 9.3 Immature Gran % (Auto) 1.1 H Neut % (Auto) 64.3 Lymph % (Auto) 18.1 L [place] % (Auto) 11.5 H Eos % (Auto) 4.6 H Baso % (Auto) 0.4 Lymph # (Auto) 1.54 [place] # (Auto) 1.0 H Eos # (Auto) 0.4 H Baso # (Auto) 0.0 Abs Immat Gran (auto) 0.09 H Absolute Neuts (auto) 5.5 Absolute Nucleated RBC 0.000 Band Neutrophils % Not Reportable Nucleated RBC % 0.0 Platelet Estimate Adequate Hypochromasia 1+ Anisocytosis 1+ Target Cells 1+ Schistocytes None seen Sodium 140 Potassium 4.2 Chloride 107 Carbon Dioxide 25 Anion Gap 8 BUN 32 H Creatinine 1.38 H Estim Creat Clear Calc 29 Estimated GFR 36 L Glucose 99 Calcium 8.8 Magnesium 1.4 L Total Bilirubin 0.5 AST 24 ALT 17 Alkaline Phosphatase 55 Total Protein 6.0 L Albumin 3.1 L Blood Type O Positive Antibody Screen Negative Crossmatch See Detail
--- NOTE | 2025-01-18 10:12 | PCPTNOTE ---
Patient on hold for therapy this A.M. due RN giving patient blood.
[2025-01-18] MEDS: FERROUS SULFATE DRIED 142 MG TABCR PO (11:26)
--- NOTE | 2025-01-18 13:34 | P.CONGI_ITS ---
Assessment and Plan Assessment and plan (1) Iron deficiency anemia: Code(s): D50.9 - Iron deficiency anemia, unspecified Status: Acute Assessment and Plan: The most likely etiology of this patient's iron deficiency anemia is erosive or ulcerative lesions within the upper GI tract (stomach or duodenum) or further distally in the small bowel, likely attributable to aspirin use, even at low doses, and potentially exacerbated by anticoagulation with Eliquis. however, gastric or colonic neoplasms are also possibilities therefore an EGD and colonoscopy will be scheduled for this coming Monday. If these tests do not reveal a satisfactory explanation for anemia, we will proceed with capsule endoscopy. GI Consult Note Consult date/time: 01/18/25 13:34 Reason for consult: Iron deficiency anemia -heme positive stools HPI: Ghazal Valadez, an 84-year-old female, was admitted on 01/10/2025 for dizziness and weakness, at which time her hemoglobin was noted to be 8.5 g/dL, down from 9.4 g/dL on 11/17/2024. Her current treatment includes ceftriaxone for urosepsis, Aspirin 81 mg/d and Eliquis (on hold since admission). Initially, she denied any overt signs or symptoms suggestive of acute or chronic GI bleeding, such as melena, hematochezia, or hematemesis, and reported no GI complaints. Despite a previous consultation where investigation of her anemia was discussed but declined, our service was reconsulted today due to a further drop in hemoglobin from 7.6 to 6.7 . Prior to receiving one unit of packed red blood cells, her iron saturation was 7%, and stool hemoccult was positive. She has no history of prior endoscopy or colonoscopy and no family history of colorectal cancer. 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 CVA (cerebral vascular accident) (04/2024) Osteoporosis Essential hypertension GERD (gastroesophageal reflux disease) Hypothyroidism Emphysema/COPD Surgical History Surgical History Peripheral arterial disease with history of revascularization (~04/2024) Bilateral lower extremity stents Status post cataract extraction of both eyes with insertion of intraocular lens Status post open reduction with internal fixation of fracture Left patellar fracture History of loop recorder Status post urethral diverticulectomy History of appendectomy History of tonsillectomy and adenoidectomy History of bladder suspension procedure Family History Family History Sibling Asthma Father Diabetes mellitus Hypertension Social History Social History Social History: The patient been since 2023. She is a former smoker she smoked 2.5 packs of cigarettes per day but quit in 1993. She used to drink 3-4 alcoholic beverages a week in still will occasionally drink alcohol in moderation. She raised 5 children. 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 She still drives. She ambulates with a cane. Code status: Full code Surrogate decision maker: Meera Schultz (daughter) Smoking status: Former smoker Alcohol intake: former Substance use: never Do You Feel Safe in your Home?: Yes Lack of Transportation: No Lack of Food: Never True Current Housing: I Have Housing Concerned About Future Housing: No Difficulty Paying Gas/Electric Bills: No Difficulty Paying for Meds: No Currently Unemployed: No Education: High School Diploma/GED Difficulty w/ Childcare or Family Care: No Spiritual care concerns: No Meds Home Medications and Allergies Home Medications Medication Instructions Recorded Confirmed Type albuterol sulfate 2.5 mg/3 mL 2.5 mg inhalation Q4-6H PRN 10/26/24 01/10/25 History (0.083 %) solution for nebulization shortness of breath or wheezing albuterol sulfate 90 mcg/actuation 2 puff inhalation Q4-6H PRN 10/26/24 01/10/25 History aerosol inhaler shortness of breath or wheezing alendronate 70 mg tablet 70 mg PO WEEKLY 10/26/24 01/10/25 History aspirin 81 mg chewable tablet 81 mg PO DAILY 10/26/24 01/10/25 History atorvastatin 40 mg tablet 40 mg PO QPM 10/26/24 01/10/25 History benzonatate 100 mg capsule 100 mg PO TID PRN cough 10/26/24 01/10/25 History clopidogrel 75 mg tablet 75 mg PO DAILY 10/26/24 01/10/25 History levothyroxine 125 mcg tablet 125 mcg PO DAILY 10/26/24 01/10/25 History meclizine 25 mg tablet 25 mg PO QID PRN dizziness 10/26/24 01/10/25 History pantoprazole 40 mg tablet,delayed 40 mg PO DAILY 10/26/24 01/10/25 History release valsartan 160 1 tablet PO DAILY 10/26/24 01/10/25 History mg-hydrochlorothiazide 25 mg tablet alprazolam 0.25 mg tablet 0.25 mg PO TID PRN Anxiety #10 tabs 11/05/24 01/10/25 Rx citalopram 10 mg tablet (Celexa) 10 mg PO QAM #30 tabs 11/05/24 01/10/25 Rx acetaminophen 325 mg tablet 325 mg PO Q6H PRN pain 01/10/25 01/10/25 History (Tylenol) apixaban 5 mg tablet (Eliquis) 5 mg PO BID 01/10/25 01/10/25 History cholecalciferol (vitamin D3) 50 2,000 unit PO DAILY 01/10/25 01/10/25 History mcg (2,000 unit) capsule docusate sodium 100 mg capsule 100 mg PO DAILY 01/10/25 01/10/25 History fluticasone fur. 100 mcg-umeclid 1 inh inhalation DAILY 01/10/25 01/10/25 History 62.5 mcg-vilant 25 mcg inhalat.powder (Trelegy Ellipta) furosemide 40 mg tablet 40 mg PO DAILY 01/10/25 01/10/25 History ipratropium 0.5 mg-albuterol 3 mg 3 ml inhalation QID PRN shortness 01/10/25 01/10/25 History (2.5 mg base)/3 mL nebulization of breath or wheezing soln meloxicam 15 mg tablet 15 mg PO DAILY 01/10/25 01/10/25 History metolazone 2.5 mg tablet 2.5 mg PO .Q48HR 01/10/25 01/10/25 History polyethylene glycol 3350 17 gram 17 g PO DAILY PRN constipation 01/10/25 01/10/25 History oral powder packet (Powderlax) Allergies Allergy/AdvReac Type Severity Reaction Status Date / Time levofloxacin AdvReac Abdominal Verified 01/10/25 05:32 Pain Vital Signs Vital Signs - 24 hr 01/17/25 13:42 01/17/25 13:49 01/17/25 14:00 Temperature Pulse Rate 84 84 88 Respiratory Rate 18 18 Blood Pressure 128/43 L Pulse Oximetry 96 Oxygen Delivery Fraction of Inspired Oxygen 01/17/25 20:14 01/17/25 20:24 01/17/25 20:26 Temperature 97.7 F Pulse Rate 84 93 93 Respiratory Rate 18 18 Blood Pressure 132/52 L Pulse Oximetry 100 95 Oxygen Delivery Room Air Fraction of Inspired Oxygen 01/17/25 20:33 01/18/25 02:07 01/18/25 02:16 Temperature Pulse Rate 90 99 93 Respiratory Rate 18 18 18 Blood Pressure Pulse Oximetry Oxygen Delivery Fraction of Inspired Oxygen 01/18/25 04:11 01/18/25 07:44 01/18/25 07:44 Temperature 97.7 F Pulse Rate 84 91 Respiratory Rate 20 20 Blood Pressure 140/53 L Pulse Oximetry 97 91 Oxygen Delivery Room Air Fraction of Inspired Oxygen 21 01/18/25 07:51 01/18/25 09:30 01/18/25 10:45 Temperature 97.6 F Pulse Rate 95 92 Respiratory Rate 20 20 20 Blood Pressure 135/56 L Pulse Oximetry 91 99 Oxygen Delivery Room Air Fraction of Inspired Oxygen 21 01/18/25 11:00 01/18/25 12:00 01/18/25 13:00 Temperature 97.6 F 97.8 F 97.7 F Pulse Rate 86 87 84 Respiratory Rate 20 20 20 Blood Pressure 127/52 L 144/58 H 150/53 H Pulse Oximetry 98 100 96 Oxygen Delivery Fraction of Inspired Oxygen 01/18/25 13:30 01/18/25 13:30 Temperature 97.7 F 97.7 F Pulse Rate 87 87 Respiratory Rate 20 20 Blood Pressure 138/54 L 138/54 L Pulse Oximetry 99 99 Oxygen Delivery Fraction of Inspired Oxygen Exam 2 Const: General: cooperative and healthy appearing Resp: Effort & Inspection: normal respiratory effort and able to speak in complete sentences Auscultation: clear to auscultation bilaterally Cardio: Rate: regular rate Rhythm: regular rhythm GI: Inspection: normal to inspection GI Palp: No No hepatosplenomegaly present Auscultation: normal bowel sounds Rectal Exam: deferred Skin: General skin exam: normal color Psych: Appearance: grossly normal Mental Status: mental status grossly normal Results Labs 01/18/25 05:54 01/18/25 05:54 Labs: Short CBC 01/18/25 Range/Units 05:54 WBC 8.5 (4.5-10.0) K/mm3 Hgb 6.7 L* (12.0-15.0) g/dL Hct 25.1 L (37.0-47.0) % Plt Count 259 (150-375) k/mm3 [facility] 01/18/25 05:54 Sodium 140 Potassium 4.2 Chloride 107 Carbon Dioxide 25 BUN 32 H Creatinine 1.38 H Glucose 99 Calcium 8.8 Liver Function 01/18/25 Range/Units 05:54 Total Bilirubin 0.5 (0.2-1.3) mg/dL AST 24 (14-36) U/L ALT 17 (6-35) U/L Alkaline Phosphatase 55 (38-126) U/L Albumin 3.1 L (3.5-5.1) g/dL
[2025-01-18] MEDS: ATORVASTATIN 40 MG TABLET PO (17:08)
[2025-01-19] VITALS (12 sets, daily range): BP systolic 142–166; BP diastolic 54–59; PULSE 78–91; RESP 16–20; TEMP 36.3–36.7; O2SAT 94–99
[2025-01-19] MEDS: IPRATROPIUM 0.5 MG/ALBUTEROL SULFATE 2.5 MG AMPUL.NEB 3 ML INHALATION ×4 (01:57→20:37)
[2025-01-19 04:37] LABS: Basophils Absolute Auto 0.1 K/mm3 (0.0-0.1); Basophils Percent Auto 0.6 % (0.2-1.2); Eosinophils Absolute Auto 0.4 K/mm3 (0-0.3); Eosinophils Percent Auto 4.4 % (0-4.4); Hematocrit 29.4 % (37.0-47.0); Hemoglobin 8.2 g/dL (12.0-15.0); Immature Granulocyte Absolute 0.06 K/mm3 (0.00-0.031); Immature Granulocyte Percent A 0.6 % (0-0.5); Lymphocytes Absolute Auto 1.57 K/mm3 (0.9-3.2); Lymphocytes Percent Auto 16.5 % (18.3-44.2); Mean Corpuscular HGB Conc 27.9 g/dl (32-36); Mean Corpuscular Hemoglobin 21.9 pg (26-34); Mean Corpuscular Volume 78.6 fl (80-100); Mean Platelet Volume 9.6 fl (7.4-10.4); Monocytes Percent Auto 10.9 % (2.6-8.5); Neutrophils Absolute Auto 6.4 K/mm3 (1.3-6.7); Platelet Count Result 276 k/mm3 (150-375); Red Blood Count 3.74 M/mm3 (4.2-5.4); Red Cell Distribution Width 21.2 % (11.5-14.5); White Blood Count 9.5 K/mm3 (4.5-10.0)
[2025-01-19 04:48] LABS: Alanine Aminotransferase 18 U/L (6-35); Albumin Level 3.3 g/dL (3.5-5.1); Alkaline Phosphatase 53 U/L (38-126); Anion Gap 3 mmol/L (4-12); Aspartate Amino Transferase 32 U/L (14-36); Bilirubin,Total 0.7 mg/dL (0.2-1.3); Blood Urea Nitrogen 24 mg/dL (7-17); Calcium 9.4 mg/dL (8.4-10.2); Carbon Dioxide 26 mmol/L (22-30); Chloride 111 mmol/L (98-107); Estimated CRCL calculation 36 ml/min; Estimated Glomerular Filt Rate 48; Glucose 122 mg/dL (65-110); Magnesium 1.5 mg/dL (1.6-2.3); Potassium 4.5 mmol/L (3.4-5.0); Sodium 140 mmol/L (137-145)
[2025-01-19] MEDS: LEVOTHYROXINE SODIUM 125 MCG TABLET PO (06:05)
[2025-01-19 06:43] LABS: Anisocytosis 2+; Platelet Estimate Adequate (Adequate); Schistocytes None Seen
[2025-01-19 06:45] LABS: Hypochromasia 1+; Ovalocytes 2+
[2025-01-19] MEDS: FLUTICASONE/UMECLIDIN/VILANTER 100-62.5-25 MCG ELLIPTA 1 PUFF INHALATION (08:08)
--- NOTE | 2025-01-19 08:29 | P.PNGI_ITS ---
Progress Note: A&P Assessment and Plan (1) Iron deficiency anemia: Code(s): D50.9 - Iron deficiency anemia, unspecified Status: Acute Assessment and Plan: Patient with iron deficiency anemia, discussed in yesterday's note. posttransfusion hemoglobin remains stable. Will start colonoscopy prep tomorrow, for EGD and colonoscopy for Monday01/21/2025. Subjective Date/time seen: 01/19/25 08:29 Objective Data Vital Signs Vital Signs: Vital Signs - 24 hr 01/18/25 09:30 01/18/25 10:45 01/18/25 11:00 Temperature 97.6 F 97.6 F Pulse Rate 92 86 Respiratory Rate 20 20 20 Blood Pressure 135/56 L 127/52 L Pulse Oximetry 91 99 98 Oxygen Delivery Room Air Fraction of Inspired Oxygen 21 01/18/25 12:00 01/18/25 13:00 01/18/25 13:30 Temperature 97.8 F 97.7 F 97.7 F Pulse Rate 87 84 87 Respiratory Rate 20 20 20 Blood Pressure 144/58 H 150/53 H 138/54 L Pulse Oximetry 100 96 99 Oxygen Delivery Fraction of Inspired Oxygen 01/18/25 13:30 01/18/25 13:53 01/18/25 13:53 Temperature 97.7 F Pulse Rate 87 83 Respiratory Rate 20 20 Blood Pressure 138/54 L Pulse Oximetry 99 92 Oxygen Delivery Room Air Fraction of Inspired Oxygen 21 01/18/25 14:00 01/18/25 14:00 01/18/25 20:00 Temperature 97.6 F Pulse Rate 88 86 91 Respiratory Rate 20 19 20 Blood Pressure 128/58 L Pulse Oximetry 96 96 Oxygen Delivery Room Air Fraction of Inspired Oxygen 21 01/18/25 20:22 01/18/25 20:32 01/18/25 20:43 Temperature 97.4 F L Pulse Rate 89 89 91 Respiratory Rate 16 16 20 Blood Pressure 154/69 H Pulse Oximetry 96 Oxygen Delivery Fraction of Inspired Oxygen 01/19/25 01:59 01/19/25 02:05 01/19/25 05:22 Temperature 97.3 F L Pulse Rate 89 89 79 Respiratory Rate 16 16 20 Blood Pressure 166/59 H Pulse Oximetry 96 Oxygen Delivery Fraction of Inspired Oxygen 01/19/25 08:09 01/19/25 08:09 01/19/25 08:16 Temperature Pulse Rate 82 78 Respiratory Rate 20 20 Blood Pressure Pulse Oximetry 94 Oxygen Delivery Room Air Fraction of Inspired Oxygen Intake/Output Intake/Output: Intake & Output 01/16/25 01/17/25 01/18/25 01/19/25 23:59 23:59 23:59 23:59 Intake Total 1040 1900 1490.5 550 Balance 1040 1900 1490.5 550 Meds/Results Medications: Active Medications Generic Name Dose Route Start Last Admin Trade Name Freq PRN Reason Stop Dose Admin Acetaminophen 650 mg 01/10/25 08:17 01/18/25 22:00 Acetaminophen 325 Mg Tablet PO 650 mg Q4H PRN Administration Mild Pain (1-3) or Fever Albuterol/Ipratropium 3 ml 01/10/25 08:00 01/19/25 08:07 Ipratropium 0.5 Mg/Albuterol Sulfate 2.5 Mg Ampul.Neb 3 Ml INHALATION 3 ml Q6HRT DEJON Administration Alendronate Sodium 70 mg 01/13/25 06:30 01/13/25 06:38 Alendronate Sodium 70 Mg Tablet PO 70 mg Mo@0630 DEJON Administration Alprazolam 0.25 mg 01/10/25 14:06 01/18/25 22:00 Alprazolam (*Crx) 0.25 Mg Tablet PO 0.25 mg TID PRN Administration Anxiety Apixaban 5 mg 01/10/25 21:00 01/13/25 08:00 Apixaban 5 Mg Tablet PO 5 mg Q12HR DEJON Administration Aspirin 81 mg 01/16/25 09:00 01/18/25 09:11 Aspirin 81 Mg Enteric Tablet PO 81 mg QAM DEJON Administration Atorvastatin Calcium 40 mg 01/10/25 18:00 01/18/25 17:08 Atorvastatin 40 Mg Tablet PO 40 mg QPM DEJON Administration Benzonatate 100 mg 01/10/25 14:06 Benzonatate 100 Mg Capsule PO TID PRN cough Bisacodyl 20 mg 01/20/25 17:00 Bisacodyl 5 Mg Tablet Ec PO 1700 DEJON Docusate Sodium 100 mg 01/10/25 14:20 01/18/25 09:12 Docusate Sodium 100 Mg Capsule PO Not Given DAILY DEJON Ferrous Sulfate 142 mg 01/16/25 12:00 01/18/25 11:26 Ferrous Sulfate Dried 142 Mg Tabcr PO 142 mg DAILY@1200 DEJON Administration Fluticasone/Umeclidinium/Vilanterol 1 puff 01/11/25 09:00 01/19/25 08:08 Fluticasone/Umeclidin/Vilanter 100-62.5-25 Mcg Ellipta INHALATION 1 puff DAILY DEJON Administration Furosemide 40 mg 01/10/25 14:20 01/16/25 08:24 Furosemide 40 Mg Tablet PO 40 mg DAILY DEJON Administration Hydrochlorothiazide 25 mg 01/10/25 14:25 01/10/25 15:14 Hydrochlorothiazide 25 Mg Tablet PO Not Given DAILY DEJON Levothyroxine Sodium 125 mcg 01/11/25 06:30 01/19/25 06:05 Levothyroxine Sodium 125 Mcg Tablet PO 125 mcg DAILY@0630 DEJON Administration Meclizine HCl 25 mg 01/10/25 14:06 01/13/25 17:33 Meclizine Hcl 25 Mg Tablet PO 25 mg QID PRN Administration dizziness Meloxicam 15 mg 01/10/25 14:20 01/16/25 08:24 Meloxicam 7.5 Mg Tablet PO 15 mg DAILY DEJON Administration Metolazone 2.5 mg 01/11/25 09:00 01/15/25 08:47 Metolazone 2.5 Mg Tablet PO 2.5 mg Q48HR DEJON Administration Pantoprazole Sodium 40 mg 01/15/25 17:00 01/18/25 17:08 Pantoprazole 40 Mg Tablet PO 40 mg BID DEJON Administration Polyethylene Glycol 17 gm 01/10/25 14:06 Polyethylene Glycol 3350 17 Gm Powd.Pack PO DAILY PRN constipation Polyethylene Glycol 119 gm 01/20/25 20:00 Polyethylene Glycol 3350 238 Gm Bottle PO 01/21/25 05:01 BID@0500,2000 [facility] Potassium Chloride 40 meq 01/12/25 09:00 01/18/25 09:11 Potassium Chloride 20 Meq Er Tablet PO 40 meq DAILY DEJON Administration Valsartan 160 mg 01/10/25 14:20 01/10/25 15:14 Valsartan 160 Mg Tablet PO Not Given DAILY DEJON Vitamin D 2,000 units 01/10/25 14:20 01/18/25 09:11 Cholecalciferol 1,000 Units Tablet PO 2,000 units DAILY DEJON Administration Radiology Results: ITS Impressions Chest X-Ray 01/10/25 06:32 Impression: Clear lungs. T11 compression deformity. Head CT 01/15/25 11:59 IMPRESSION: 1. No acute intracranial process. 2. 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 Carotid Doppler Study 01/17/25 12:30 IMPRESSION: 1. >=70% (but less than near occlusion) stenosis in the right internal carotid artery. 2. 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 There is also no identifiable flow within the left vertebral artery which may also be occluded. Consider further evaluation with carotid CT angiogram for more definitive determination. Labs Labs: Laboratory Results - last 24 hr 01/18/25 01/19/25 05:54 04:29 WBC 9.5 RBC 3.74 L Hgb 8.2 L Hct 29.4 L MCV 78.6 L MCH 21.9 L MCHC 27.9 L RDW 21.2 H Plt Count 276 MPV 9.6 Immature Gran % (Auto) 0.6 H Neut % (Auto) 67.0 Lymph % (Auto) 16.5 L [place] % (Auto) 10.9 H Eos % (Auto) 4.4 Baso % (Auto) 0.6 Lymph # (Auto) 1.57 [place] # (Auto) 1.0 H Eos # (Auto) 0.4 H Baso # (Auto) 0.1 Abs Immat Gran (auto) 0.06 H Absolute Neuts (auto) 6.4 Absolute Nucleated RBC 0.000 Band Neutrophils % Not Reportable Nucleated RBC % 0.0 Platelet Estimate Adequate Hypochromasia 1+ Anisocytosis 2+ Ovalocytes 2+ Schistocytes None seen Sodium 140 Potassium 4.5 Chloride 111 H Carbon Dioxide 26 Anion Gap 3 L BUN 24 H Creatinine 1.08 H Estim Creat Clear Calc 36 Estimated GFR 48 L Glucose 122 H Calcium 9.4 Magnesium 1.5 L Total Bilirubin 0.7 AST 32 ALT 18 Alkaline Phosphatase 53 Total Protein 6.0 L Albumin 3.3 L Blood Type O Positive Antibody Screen Negative Crossmatch See Detail
[2025-01-19] MEDS: ASPIRIN 81 MG ENTERIC TABLET PO (08:40)
[2025-01-19] MEDS: CHOLECALCIFEROL 1,000 UNITS TABLET 2000 UNITS PO (08:40)
[2025-01-19] MEDS: PANTOPRAZOLE 40 MG TABLET PO ×2 (08:40→17:20)
[2025-01-19] MEDS: DOCUSATE SODIUM 100 MG CAPSULE PO (08:40)
[2025-01-19] MEDS: POTASSIUM CHLORIDE 20 MEQ ER TABLET 40 MEQ PO (08:41)
--- NOTE | 2025-01-19 12:29 | P.PNIM_ITS ---
Progress Note: A&P Assessment and Plan (1) Acute kidney injury: Code(s): N17.9 - Acute kidney failure, unspecified Status: Acute (2) Dizziness: Code(s): R42 - Dizziness and giddiness Status: Acute (3) COPD (chronic obstructive pulmonary disease): Qualifiers: COPD type: COPD with acute lower respiratory infection Qualified Code(s): J44.0 - Chronic obstructive pulmonary disease with (acute) lower respiratory infection Code(s): J44.9 - Chronic obstructive pulmonary disease, unspecified Status: Acute (4) Acute hypokalemia: Code(s): E87.6 - Hypokalemia Status: Acute (5) Elevated brain natriuretic peptide (BNP) level: Code(s): R79.89 - Other specified abnormal findings of blood chemistry Status: Acute (6) UTI (urinary tract infection): Qualifiers: Urinary tract infection type: acute cystitis Hematuria presence: without hematuria Qualified Code(s): N30.00 - Acute cystitis without hematuria Code(s): N39.0 - Urinary tract infection, site not specified Status: Suspected (7) Hypothyroidism: Qualifiers: Hypothyroidism type: unspecified Qualified Code(s): E03.9 - Hypothy roidism, unspecified Code(s): E03.9 - Hypothyroidism, unspecified Status: Chronic (8) Essential hypertension: Code(s): I10 - Essential (primary) hypertension Status: Chronic (9) Chronic anemia: Code(s): D64.9 - Anemia, unspecified Status: Acute (10) Occult blood in stools: Code(s): R19.5 - Other fecal abnormalities Status: Acute (11) Mitral valve stenosis: Code(s): I05.0 - Rheumatic mitral stenosis Status: Acute Plan 84 y/o F with PMH of vertigo, CVA, HTN, GERD, hypothyroidism, COPD, and 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 The patient presents here from home on 01/10 for further evaluation of dizziness and shortness of breath. She reports she has been dizzy for the past 2 days. She further describes this as a haze and like the room was spinning. She has a history of vertigo, however she reports the dizziness felt different than her usual. Now has mostly resolved, patient took her home Meclizine which eventually helped partial resolve her symptoms. States she still has a little dizziness with exertion. She is also reporting worsening shortness of breath and a chronic cough for the past 2 months, however has some level of chronic shortness of breath due to COPD. Cough has been nonproductive. She initially sought care with her PCP 2 weeks ago who increased her diuretics - she reports her LE edema significantly improved. 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 She denies associated nausea, vomiting, diarrhea, fever, chills, chest pain, syncope, or abdominal pain. She also denies dysuria, urinary frequency, urinary hesitancy, flank pain, or suprapubic pain. Initial VS at presentation: 97.30° F, HR 90, R 22, 133/92, and 96% on RA. ED workup showed: WBC 18.6, hemoglobin 8.5 (previously 9.4 on 11/17/2024), potassium 2.9, creatinine 1.61 and GFR 30 (previously 1.36 and GFR 37 on 11/17/2024), BNP 1180, and initial troponin was 0.030, normal TSH, UA suspicious for UTI) however many epithelial cells, may be contaminant). CXR showed clear lungs and a T11 compression deformity. Head CT showed no acute intracranial process and moderate scattered white matter hypoattenuation consistent with chronic small-vessel ischemic disease as well as a few scattered old lacunar inf arcts in the bilateral periventricular white matter in caudate nuclei. # Acute kidney injury: Creatinine 1.61 and GFR 30. Previously 1.36 and GFR 37 on 11/17/2024. Possible UTI, however many epithelial cells which may indicate contamination. Started on ABX, follow culture. May be contributing to worsening renal function. BNP elevated, no known history of CHF. Has been reporting shortness of breath and cough. No echo on file, ordered. Received some IV fluid on admission. Trend renal function. Correct electrolytes as needed, monitor. Furosemide metolazone and meloxicam on hold. Creatinine stable in improving # Dizziness: Dizziness x2 days. patient has severe mitral valve stenosis on TTE which could be contributing History of vertigo and stroke. No change in dizziness with meclizine p.o. prior to arrival. Continue patient's home med: Meclizine 15 mg daily. fall precautions stable 5/11- short run of vtach, replaced mg, k. tsh was checked and normal -iron panel cardiology consulted # COPD (chronic obstructive pulmonary disease): Wheezing and rhonchi upon arrival to the ED on 01/10. DuoNebs q.6 rama. Will hold on abx and steroids, no increased O2 requirement and cough remains dry (no increased sputum production). stable, no sob monitor for now IS, out of bed TID and prn # Acute hypokalemia: Potassium 2.9 upon arrival. Replete and monitor # Elevated brain natriuretic peptide (BNP) level: # UTI (urinary tract infection): UA showed 2+ leuks, 11-20 WBC, many epithelial cells. Contaminant versus infection. Check urine culture, follow. Started on ceftriaxone on 01/10. 01/12- continue antibiotics-changed to po 01/14 cefdinir 300 mg bid (on 01/12) # Hypothyroidism: Continue home Synthroid. TSH 1.77 on 01/10/2025. # Essential hypertension: Chronic, stable Continue home medications: Lasix, metolazone. Hold valsartan-hydrochlorothiazide, believes she was taken off this medication. Monitor- 124/51 # Chronic anemia: hg dropped to 6.7/19.4 during the hospitalization Eliquis on hold type/screen and 1 unit if PRBC ordered Iron studies ordered:iron 29, %satur 7, tibc 404 gi is following- no acute interventions 01/14 hg stable-continue to trend 01/18 hemoglobin down to 6.7 again. Transfuse 1 unit PRBC GI reconsulted as she will need to be on anticoagulation due to atrial fibrillation EGD and colonoscopy planned on 01/21/2025 # Occult blood in stools: Patient denies blood in stool --GI consulted EGD and colonoscopy planned on 01/21/2025 # Mitral valve stenosis: BNP 1180 01/13 TTE Notable for severe mitral valve stenosis 1. Complete two-dimensional, color flow and Doppler transthoracic echocardiogram is performed. 2. Left ventricular chamber dimension is normal. 3. Left ventricular systolic function is normal, estimated at 65-70%. 4. There is moderately increased left ventricular wall thickness. 5. The left ventricular diastolic function is grade I diastolic dysfunction. 6. Right ventricular systolic function is normal. 7. Left atrial chamber dimension is severely enlarged. 8. Right atrial chamber dimension is mildly enlarged. 9. There is moderate to severe aortic valve stenosis with a peak velocity of 347 cm/s, mean gradient of 28 mmHg, and aortic valve area of 0.9 cm2. 10. There is mild aortic valve regurgitation. 11. The mitral valve has thickened leaflets. 12. The mitral valve annulus is severely calcified. 13. There is severe mitral valve stenosis. Mean gradient of 12mmHg. 14. There is mild mitral valve regurgitation. 15. There is mild tricuspid valve regurgitation. 16. There is small anterior pericardial effusion. Monitor I&Os daily weights. CXR showed no evidence of pulmonary congestion. On Lasix 40 mg p.o. daily and metolazone 2.5 mg Q 48 hours - hold since creatinine trending up. Hold HCTZ 25 mg daily (believes her provider d/c'd this medication and generally would choose either furosemide or hctz) Initially presented with rhonchi and wheezing on exam, does have history of COPD. Shortness of breath secondary to COPD versus new CHF --Needs outpatient follow up with cardiology, valve clinic for severe mitral valve stenosis --stress test to evaluate for underlying CAD as cause for NSVT - can be done as outpatient # new left arm and leg weakness 01/15/[address] unchanged. This is stable # complete occlusion left internal carotid artery. # carotid artery stenosis right more than 70% need to see vascular surgery which she already following with. # moderate aortic stenosis # history of CVA # atrial fibrillation detected on loop recorder. Started on Eliquis.. Patient was reluctant to take warfarin given moderate mitral stenosis. Eliquis on hold due to anemia # Diet: Heart healthy, dietary supplements # DVT Prophylaxis: Eliquis-on hold, SCD # Code Status: Full code Subjective Date/time seen: 01/19/25 12:29 Interval history: Received 1 unit of packed red blood cell yesterday. No new complaints no overnight events. Plan for EGD and colonoscopy on Monday noted. Review of Systems Review of Systems: All systems reviewed & are unremarkable except as noted in HPI and below Exam Narrative: General - Awake and alert. No acute distress Eyes - PERRLA, EOM intact ENT - No thrush, No erythema Neck - No noticeable or palpable swelling Lymph Nodes - No lymphadenopathy Cardiovascular - RRR no m/r/g, no JVD Lungs: Clear to auscultation, No wheezing, use of accessory muscles, no crackles or wheezes. Skin - Skin warm and dry, no wounds or rashes Abdomen - Normal bowel sounds, abdomen soft and nontender Extremities - No edema, cyanosis or clubbing Musculoskeletal - 4/5 strength left arm, 5/5 strength right arm, bilateral legs 5/5 strength, normal range of motion, no swollen or erythematous joints. Neurological – Alert and oriented x 3, CN 2-12 grossly intact. Psych: Normal mood and affect Objective Data Vital Signs Vital Signs: Vital Signs - 24 hr 01/18/25 13:00 01/18/25 13:30 01/18/25 13:30 Temperature 97.7 F 97.7 F 97.7 F Pulse Rate 84 87 87 Respiratory Rate 20 20 20 Blood Pressure 150/53 H 138/54 L 138/54 L Pulse Oximetry 96 99 99 Oxygen Delivery Fraction of Inspired Oxygen 01/18/25 13:53 01/18/25 13:53 01/18/25 14:00 Temperature Pulse Rate 83 88 Respiratory Rate 20 20 Blood Pressure Pulse Oximetry 92 Oxygen Delivery Room Air Fraction of Inspired Oxygen 21 01/18/25 14:00 01/18/25 20:00 01/18/25 20:22 Temperature 97.6 F Pulse Rate 86 91 89 Respiratory Rate 19 20 16 Blood Pressure 128/58 L Pulse Oximetry 96 96 Oxygen Delivery Room Air Fraction of Inspired Oxygen 21 01/18/25 20:32 01/18/25 20:43 01/19/25 01:59 Temperature 97.4 F L Pulse Rate 89 91 89 Respiratory Rate 16 20 16 Blood Pressure 154/69 H Pulse Oximetry 96 Oxygen Delivery Fraction of Inspired Oxygen 01/19/25 02:05 01/19/25 05:22 01/19/25 08:09 Temperature 97.3 F L Pulse Rate 89 79 Respiratory Rate 16 20 Blood Pressure 166/59 H Pulse Oximetry 96 94 Oxygen Delivery Room Air Fraction of Inspired Oxygen 01/19/25 08:09 01/19/25 08:16 01/19/25 08:40 Temperature Pulse Rate 82 78 Respiratory Rate 20 20 Blood Pressure Pulse Oximetry Oxygen Delivery Room Air Fraction of Inspired Oxygen Intake/Output Intake/Output: Intake & Output 01/16/25 01/17/25 01/18/25 01/19/25 23:59 23:59 23:59 23:59 Intake Total 1040 1900 1490.5 1030 Balance 1040 1900 1490.5 1030 Meds/Results Medications: Active Medications Generic Name Dose Route Start Last Admin Trade Name Freq PRN Reason Stop Dose Admin Acetaminophen 650 mg 01/10/25 08:17 01/18/25 22:00 Acetaminophen 325 Mg Tablet PO 650 mg Q4H PRN Administration Mild Pain (1-3) or Fever Albuterol/Ipratropium 3 ml 01/10/25 08:00 01/19/25 08:07 Ipratropium 0.5 Mg/Albuterol Sulfate 2.5 Mg Ampul.Neb 3 Ml INHALATION 3 ml Q6HRT RAMA Administration Alendronate Sodium 70 mg 01/13/25 06:30 01/13/25 06:38 Alendronate Sodium 70 Mg Tablet PO 70 mg Mo@0630 RAMA Administration Alprazolam 0.25 mg 01/10/25 14:06 01/18/25 22:00 Alprazolam (*Crx) 0.25 Mg Tablet PO 0.25 mg TID PRN Administration Anxiety Apixaban 5 mg 01/10/25 21:00 01/13/25 08:00 Apixaban 5 Mg Tablet PO 5 mg Q12HR RAMA Administration Aspirin 81 mg 01/16/25 09:00 01/19/25 08:40 Aspirin 81 Mg Enteric Tablet PO 81 mg QAM RAMA Administration Atorvastatin Calcium 40 mg 01/10/25 18:00 01/18/25 17:08 Atorvastatin 40 Mg Tablet PO 40 mg QPM RAMA Administration Benzonatate 100 mg 01/10/25 14:06 Benzonatate 100 Mg Capsule PO TID PRN cough Bisacodyl 20 mg 01/20/25 17:00 Bisacodyl 5 Mg Tablet Ec PO 1700 RAMA Docusate Sodium 100 mg 01/10/25 14:20 01/19/25 08:40 Docusate Sodium 100 Mg Capsule PO 100 mg DAILY RAMA Administration Ferrous Sulfate 142 mg 01/16/25 12:00 01/18/25 11:26 Ferrous Sulfate Dried 142 Mg Tabcr PO 142 mg DAILY@1200 RAMA Administration Fluticasone/Umeclidinium/Vilanterol 1 puff 01/11/25 09:00 01/19/25 08:08 Fluticasone/Umeclidin/Vilanter 100-62.5-25 Mcg Ellipta INHALATION 1 puff DAILY RAMA Administration Furosemide 40 mg 01/10/25 14:20 01/16/25 08:24 Furosemide 40 Mg Tablet PO 40 mg DAILY RAMA Administration Hydrochlorothiazide 25 mg 01/10/25 14:25 01/10/25 15:14 Hydrochlorothiazide 25 Mg Tablet PO Not Given DAILY RAMA Levothyroxine Sodium 125 mcg 01/11/25 06:30 01/19/25 06:05 Levothyroxine Sodium 125 Mcg Tablet PO 125 mcg DAILY@0630 RAMA Administration Meclizine HCl 25 mg 01/10/25 14:06 01/13/25 17:33 Meclizine Hcl 25 Mg Tablet PO 25 mg QID PRN Administration dizziness Meloxicam 15 mg 01/10/25 14:20 01/16/25 08:24 Meloxicam 7.5 Mg Tablet PO 15 mg DAILY RAMA Administration Metolazone 2.5 mg 01/11/25 09:00 01/15/25 08:47 Metolazone 2.5 Mg Tablet PO 2.5 mg Q48HR RAMA Administration Pantoprazole Sodium 40 mg 01/15/25 17:00 01/19/25 08:40 Pantoprazole 40 Mg Tablet PO 40 mg BID RAMA Administration Polyethylene Glycol 17 gm 01/10/25 14:06 Polyethylene Glycol 3350 17 Gm Powd.Pack PO DAILY PRN constipation Polyethylene Glycol 119 gm 01/20/25 20:00 Polyethylene Glycol 3350 238 Gm Bottle PO 01/21/25 05:01 BID@0500,2000 [facility] Potassium Chloride 40 meq 01/12/25 09:00 01/19/25 08:41 Potassium Chloride 20 Meq Er Tablet PO 40 meq DAILY RAMA Administration Valsartan 160 mg 01/10/25 14:20 01/10/25 15:14 Valsartan 160 Mg Tablet PO Not Given DAILY RAMA Vitamin D 2,000 units 01/10/25 14:20 01/19/25 08:40 Cholecalciferol 1,000 Units Tablet PO 2,000 units DAILY RAMA Administration Radiology Results: ITS Impressions Chest X-Ray 01/10/25 06:32 Impression: Clear lungs. T11 compression deformity. Head CT 01/15/25 11:59 IMPRESSION: 1. No acute intracranial process. 2. 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 Carotid Doppler Study 01/17/25 12:30 IMPRESSION: 1. >=70% (but less than near occlusion) stenosis in the right internal carotid artery. 2. 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 There is also no identifiable flow within the left vertebral artery which may also be occluded. Consider further evaluation with carotid CT angiogram for more definitive determination. Labs Labs: Laboratory Results - last 24 hr 01/18/25 01/19/25 05:54 04:29 WBC 9.5 RBC 3.74 L Hgb 8.2 L Hct 29.4 L MCV 78.6 L MCH 21.9 L MCHC 27.9 L RDW 21.2 H Plt Count 276 MPV 9.6 Immature Gran % (Auto) 0.6 H Neut % (Auto) 67.0 Lymph % (Auto) 16.5 L [place] % (Auto) 10.9 H Eos % (Auto) 4.4 Baso % (Auto) 0.6 Lymph # (Auto) 1.57 [place] # (Auto) 1.0 H Eos # (Auto) 0.4 H Baso # (Auto) 0.1 Abs Immat Gran (auto) 0.06 H Absolute Neuts (auto) 6.4 Absolute Nucleated RBC 0.000 Band Neutrophils % Not Reportable Nucleated RBC % 0.0 Platelet Estimate Adequate Hypochromasia 1+ Anisocytosis 2+ Ovalocytes 2+ Schistocytes None seen Sodium 140 Potassium 4.5 Chloride 111 H Carbon Dioxide 26 Anion Gap 3 L BUN 24 H Creatinine 1.08 H Estim Creat Clear Calc 36 Estimated GFR 48 L Glucose 122 H Calcium 9.4 Magnesium 1.5 L Total Bilirubin 0.7 AST 32 ALT 18 Alkaline Phosphatase 53 Total Protein 6.0 L Albumin 3.3 L Crossmatch See Detail
[2025-01-19] MEDS: ATORVASTATIN 40 MG TABLET PO (17:20)
[2025-01-19] MEDS: ALPRAZolam (*CRX) 0.25 MG TABLET PO (21:26)
[2025-01-19] MEDS: ACETAMINOPHEN 325 MG TABLET 650 MG PO (22:22)
[2025-01-20] VITALS (12 sets, daily range): BP systolic 140–165; BP diastolic 53–64; PULSE 81–93; RESP 18–20; TEMP 36.4–37.1; O2SAT 92–100
[2025-01-20] MEDS: IPRATROPIUM 0.5 MG/ALBUTEROL SULFATE 2.5 MG AMPUL.NEB 3 ML INHALATION ×4 (01:26→20:37)
[2025-01-20] MEDS: ACETAMINOPHEN 325 MG TABLET 650 MG PO (02:57)
[2025-01-20 05:12] LABS: Basophils Absolute Auto 0.1 K/mm3 (0.0-0.1); Basophils Percent Auto 0.6 % (0.2-1.2); Eosinophils Absolute Auto 0.4 K/mm3 (0-0.3); Eosinophils Percent Auto 3.5 % (0-4.4); Hemoglobin 8.7 g/dL (12.0-15.0); Immature Granulocyte Absolute 0.09 K/mm3 (0.00-0.031); Immature Granulocyte Percent A 0.9 % (0-0.5); Lymphocytes Absolute Auto 1.69 K/mm3 (0.9-3.2); Lymphocytes Percent Auto 16.7 % (18.3-44.2); Mean Corpuscular HGB Conc 28.1 g/dl (32-36); Mean Corpuscular Hemoglobin 22.4 pg (26-34); Mean Corpuscular Volume 79.9 fl (80-100); Mean Platelet Volume 9.4 fl (7.4-10.4); Monocytes Absolute Auto 0.9 K/mm3 (0.1-0.6); Monocytes Percent Auto 8.9 % (2.6-8.5); Neutrophils Percent Auto 69.4 % (45.5-73.1); Platelet Count Result 277 k/mm3 (150-375); Red Blood Count 3.88 M/mm3 (4.2-5.4); Red Cell Distribution Width 21.5 % (11.5-14.5); White Blood Count 10.1 K/mm3 (4.5-10.0)
[2025-01-20 05:22] LABS: Alanine Aminotransferase 17 U/L (6-35); Albumin Level 3.6 g/dL (3.5-5.1); Alkaline Phosphatase 66 U/L (38-126); Anion Gap 7 mmol/L (4-12); Aspartate Amino Transferase 26 U/L (14-36); Bilirubin,Total 0.7 mg/dL (0.2-1.3); Blood Urea Nitrogen 23 mg/dL (7-17); Calcium 9.5 mg/dL (8.4-10.2); Carbon Dioxide 22 mmol/L (22-30); Chloride 109 mmol/L (98-107); Estimated CRCL calculation 33 ml/min; Estimated Glomerular Filt Rate 50; Glucose 104 mg/dL (65-110); Magnesium 1.4 mg/dL (1.6-2.3); Potassium 4.1 mmol/L (3.4-5.0); Sodium 138 mmol/L (137-145)
[2025-01-20 05:52] LABS: Anisocytosis 1+; Hypochromasia 1+; Ovalocytes 1+; Platelet Estimate Adequate (Adequate); Poikilocytosis 1+
[2025-01-20 05:53] LABS: Crenated RBC 1+
[2025-01-20 05:54] LABS: Schistocytes None Seen
[2025-01-20] MEDS: LEVOTHYROXINE SODIUM 125 MCG TABLET PO (06:05)
[2025-01-20] MEDS: ALENDRONATE SODIUM 70 MG TABLET PO (06:05)
[2025-01-20] MEDS: FLUTICASONE/UMECLIDIN/VILANTER 100-62.5-25 MCG ELLIPTA 1 PUFF INHALATION (08:02)
[2025-01-20] MEDS: PANTOPRAZOLE 40 MG TABLET PO ×2 (08:57→16:42)
[2025-01-20] MEDS: POTASSIUM CHLORIDE 20 MEQ ER TABLET 40 MEQ PO (08:57)
[2025-01-20] MEDS: ASPIRIN 81 MG ENTERIC TABLET PO (08:57)
[2025-01-20] MEDS: DOCUSATE SODIUM 100 MG CAPSULE PO (08:57)
[2025-01-20] MEDS: CHOLECALCIFEROL 1,000 UNITS TABLET 2000 UNITS PO (08:57)
[2025-01-20] MEDS: MAGNESIUM SULF 2 GM/WATER 50ML 2 GM/50 ML BAG IVPB (08:57)
--- NOTE | 2025-01-20 14:07 | P.PNIM_ITS ---
Progress Note: A&P Assessment and Plan (1) Acute kidney injury: Code(s): N17.9 - Acute kidney failure, unspecified Status: Acute (2) Dizziness: Code(s): R42 - Dizziness and giddiness Status: Acute (3) COPD (chronic obstructive pulmonary disease): Qualifiers: COPD type: COPD with acute lower respiratory infection Qualified Code(s): J44.0 - Chronic obstructive pulmonary disease with (acute) lower respiratory infection Code(s): J44.9 - Chronic obstructive pulmonary disease, unspecified Status: Acute (4) Acute hypokalemia: Code(s): E87.6 - Hypokalemia Status: Acute (5) Elevated brain natriuretic peptide (BNP) level: Code(s): R79.89 - Other specified abnormal findings of blood chemistry Status: Acute (6) UTI (urinary tract infection): Qualifiers: Urinary tract infection type: acute cystitis Hematuria presence: without hematuria Qualified Code(s): N30.00 - Acute cystitis without hematuria Code(s): N39.0 - Urinary tract infection, site not specified Status: Suspected (7) Hypothyroidism: Qualifiers: Hypothyroidism type: unspecified Qualified Code(s): E03.9 - Hypothy roidism, unspecified Code(s): E03.9 - Hypothyroidism, unspecified Status: Chronic (8) Essential hypertension: Code(s): I10 - Essential (primary) hypertension Status: Chronic (9) Chronic anemia: Code(s): D64.9 - Anemia, unspecified Status: Acute (10) Occult blood in stools: Code(s): R19.5 - Other fecal abnormalities Status: Acute (11) Mitral valve stenosis: Code(s): I05.0 - Rheumatic mitral stenosis Status: Acute Plan 84 y/o F with PMH of vertigo, CVA, HTN, GERD, hypothyroidism, COPD, and 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 The patient presents here from home on 01/10 for further evaluation of dizziness and shortness of breath. She reports she has been dizzy for the past 2 days. She further describes this as a haze and like the room was spinning. She has a history of vertigo, however she reports the dizziness felt different than her usual. Now has mostly resolved, patient took her home Meclizine which eventually helped partial resolve her symptoms. States she still has a little dizziness with exertion. She is also reporting worsening shortness of breath and a chronic cough for the past 2 months, however has some level of chronic shortness of breath due to COPD. Cough has been nonproductive. She initially sought care with her PCP 2 weeks ago who increased her diuretics - she reports her LE edema significantly improved. 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 She denies associated nausea, vomiting, diarrhea, fever, chills, chest pain, syncope, or abdominal pain. She also denies dysuria, urinary frequency, urinary hesitancy, flank pain, or suprapubic pain. Initial VS at presentation: 97.30° F, HR 90, R 22, 133/92, and 96% on RA. ED workup showed: WBC 18.6, hemoglobin 8.5 (previously 9.4 on 11/17/2024), potassium 2.9, creatinine 1.61 and GFR 30 (previously 1.36 and GFR 37 on 11/17/2024), BNP 1180, and initial troponin was 0.030, normal TSH, UA suspicious for UTI) however many epithelial cells, may be contaminant). CXR showed clear lungs and a T11 compression deformity. Head CT showed no acute intracranial process and moderate scattered white matter hypoattenuation consistent with chronic small-vessel ischemic disease as well as a few scattered old lacunar inf arcts in the bilateral periventricular white matter in caudate nuclei. # Acute kidney injury: Creatinine 1.61 and GFR 30. Previously 1.36 and GFR 37 on 11/17/2024. Possible UTI, however many epithelial cells which may indicate contamination. Started on ABX, follow culture. May be contributing to worsening renal function. BNP elevated, no known history of CHF. Has been reporting shortness of breath and cough. No echo on file, ordered. Received some IV fluid on admission. Trend renal function. Correct electrolytes as needed, monitor. Furosemide metolazone and meloxicam on hold. Creatinine stable in improving # Dizziness: Dizziness x2 days. patient has severe mitral valve stenosis on TTE which could be contributing History of vertigo and stroke. No change in dizziness with meclizine p.o. prior to arrival. Continue patient's home med: Meclizine 15 mg daily. fall precautions stable 5/11- short run of vtach, replaced mg, k. tsh was checked and normal -iron panel cardiology consulted # COPD (chronic obstructive pulmonary disease): Wheezing and rhonchi upon arrival to the ED on 01/10. DuoNebs q.6 rama. Will hold on abx and steroids, no increased O2 requirement and cough remains dry (no increased sputum production). stable, no sob monitor for now IS, out of bed TID and prn # Acute hypokalemia: Potassium 2.9 upon arrival. Replete and monitor # Elevated brain natriuretic peptide (BNP) level: # UTI (urinary tract infection): UA showed 2+ leuks, 11-20 WBC, many epithelial cells. Contaminant versus infection. Check urine culture, follow. Started on ceftriaxone on 01/10. 01/12- continue antibiotics-changed to po 01/14 cefdinir 300 mg bid (on 01/12) # Hypothyroidism: Continue home Synthroid. TSH 1.77 on 01/10/2025. # Essential hypertension: Chronic, stable Continue home medications: Lasix, metolazone. Hold valsartan-hydrochlorothiazide, believes she was taken off this medication. Monitor- 124/51 # Chronic anemia: hg dropped to 6.7/19.4 during the hospitalization Eliquis on hold type/screen and 1 unit if PRBC ordered Iron studies ordered:iron 29, %satur 7, tibc 404 gi is following- no acute interventions 01/14 hg stable-continue to trend 01/18 hemoglobin down to 6.7 again. Transfuse 1 unit PRBC GI reconsulted as she will need to be on anticoagulation due to atrial fibrillation EGD and colonoscopy planned on 01/21/2025 # Occult blood in stools: Patient denies blood in stool --GI consulted EGD and colonoscopy planned on 01/21/2025 # Mitral valve stenosis: BNP 1180 01/13 TTE Notable for severe mitral valve stenosis 1. Complete two-dimensional, color flow and Doppler transthoracic echocardiogram is performed. 2. Left ventricular chamber dimension is normal. 3. Left ventricular systolic function is normal, estimated at 65-70%. 4. There is moderately increased left ventricular wall thickness. 5. The left ventricular diastolic function is grade I diastolic dysfunction. 6. Right ventricular systolic function is normal. 7. Left atrial chamber dimension is severely enlarged. 8. Right atrial chamber dimension is mildly enlarged. 9. There is moderate to severe aortic valve stenosis with a peak velocity of 347 cm/s, mean gradient of 28 mmHg, and aortic valve area of 0.9 cm2. 10. There is mild aortic valve regurgitation. 11. The mitral valve has thickened leaflets. 12. The mitral valve annulus is severely calcified. 13. There is severe mitral valve stenosis. Mean gradient of 12mmHg. 14. There is mild mitral valve regurgitation. 15. There is mild tricuspid valve regurgitation. 16. There is small anterior pericardial effusion. Monitor I&Os daily weights. CXR showed no evidence of pulmonary congestion. On Lasix 40 mg p.o. daily and metolazone 2.5 mg Q 48 hours - hold since creatinine trending up. Hold HCTZ 25 mg daily (believes her provider d/c'd this medication and generally would choose either furosemide or hctz) Initially presented with rhonchi and wheezing on exam, does have history of COPD. Shortness of breath secondary to COPD versus new CHF --Needs outpatient follow up with cardiology, valve clinic for severe mitral valve stenosis --stress test to evaluate for underlying CAD as cause for NSVT - can be done as outpatient # new left arm and leg weakness 01/15/[address] unchanged. This is stable # complete occlusion left internal carotid artery. # carotid artery stenosis right more than 70% need to see vascular surgery which she already following with. # moderate aortic stenosis # history of CVA # atrial fibrillation detected on loop recorder. Started on Eliquis.. Patient was reluctant to take warfarin given moderate mitral stenosis. Eliquis on hold due to anemia # Diet: Heart healthy, dietary supplements # DVT Prophylaxis: Eliquis-on hold, SCD # Code Status: Full code Subjective Date/time seen: 01/20/25 14:07 Interval history: H&H remains stable. No new complaints. Plan for EGD and colonoscopy in a.m.. Review of Systems Review of Systems: All systems reviewed & are unremarkable except as noted in HPI and below Exam Narrative: General - Awake and alert. No acute distress Eyes - PERRLA, EOM intact ENT - No thrush, No erythema Neck - No noticeable or palpable swelling Lymph Nodes - No lymphadenopathy Cardiovascular - RRR no m/r/g, no JVD Lungs: Clear to auscultation, No wheezing, use of accessory muscles, no crackles or wheezes. Skin - Skin warm and dry, no wounds or rashes Abdomen - Normal bowel sounds, abdomen soft and nontender Extremities - No edema, cyanosis or clubbing Musculoskeletal - 4/5 strength left arm, 5/5 strength right arm, bilateral legs 5/5 strength, normal range of motion, no swollen or erythematous joints. Neurological – Alert and oriented x 3, CN 2-12 grossly intact. Psych: Normal mood and affect Objective Data Vital Signs Vital Signs: Vital Signs - 24 hr 01/19/25 14:11 01/19/25 14:21 01/19/25 20:00 Temperature Pulse Rate 81 86 Respiratory Rate 20 20 Blood Pressure Pulse Oximetry Oxygen Delivery Room Air Fraction of Inspired Oxygen 01/19/25 20:37 01/19/25 20:39 01/19/25 20:46 Temperature Pulse Rate 84 85 Respiratory Rate 20 20 Blood Pressure Pulse Oximetry 94 Oxygen Delivery Room Air Fraction of Inspired Oxygen 21 01/19/25 21:02 01/20/25 01:27 01/20/25 01:42 Temperature 97.8 F Pulse Rate 91 90 87 Respiratory Rate 20 20 20 Blood Pressure 162/54 H Pulse Oximetry 98 Oxygen Delivery Fraction of Inspired Oxygen 01/20/25 03:58 01/20/25 07:53 01/20/25 07:53 Temperature 97.9 F Pulse Rate 93 93 Respiratory Rate 20 20 Blood Pressure 141/64 H Pulse Oximetry 94 92 Oxygen Delivery Room Air Fraction of Inspired Oxygen 21 01/20/25 08:03 01/20/25 09:00 01/20/25 13:41 Temperature 98.8 F Pulse Rate 90 84 Respiratory Rate 20 20 Blood Pressure 140/53 L Pulse Oximetry 96 Oxygen Delivery Room Air Fraction of Inspired Oxygen 01/20/25 14:00 01/20/25 14:00 Temperature Pulse Rate 81 Respiratory Rate 20 Blood Pressure Pulse Oximetry 95 Oxygen Delivery Room Air Fraction of Inspired Oxygen 21 Intake/Output Intake/Output: Intake & Output 01/17/25 01/18/25 01/19/25 01/20/25 23:59 23:59 23:59 23:59 Intake Total 1900 1490.5 2560 1370 Balance 1900 1490.5 2560 1370 Meds/Results Medications: Active Medications Generic Name Dose Route Start Last Admin Trade Name Freq PRN Reason Stop Dose Admin Acetaminophen 650 mg 01/10/25 08:17 01/20/25 02:57 Acetaminophen 325 Mg Tablet PO 650 mg Q4H PRN Administration Mild Pain (1-3) or Fever Albuterol/Ipratropium 3 ml 01/10/25 08:00 01/20/25 14:00 Ipratropium 0.5 Mg/Albuterol Sulfate 2.5 Mg Ampul.Neb 3 Ml INHALATION 3 ml Q6HRT RAMA Administration Alendronate Sodium 70 mg 01/13/25 06:30 01/20/25 06:05 Alendronate Sodium 70 Mg Tablet PO 70 mg Mo@0630 RAMA Administration Alprazolam 0.25 mg 01/10/25 14:06 01/19/25 21:26 Alprazolam (*Crx) 0.25 Mg Tablet PO 01/30/25 23:59 0.25 mg TID PRN Administration Anxiety Apixaban 5 mg 01/10/25 21:00 01/13/25 08:00 Apixaban 5 Mg Tablet PO 5 mg Q12HR RAMA Administration Aspirin 81 mg 01/16/25 09:00 01/20/25 08:57 Aspirin 81 Mg Enteric Tablet PO 81 mg QAM RAMA Administration Atorvastatin Calcium 40 mg 01/10/25 18:00 01/19/25 17:20 Atorvastatin 40 Mg Tablet PO 40 mg QPM RAMA Administration Benzonatate 100 mg 01/10/25 14:06 Benzonatate 100 Mg Capsule PO TID PRN cough Bisacodyl 20 mg 01/20/25 17:00 Bisacodyl 5 Mg Tablet Ec PO 1700 RAMA Docusate Sodium 100 mg 01/10/25 14:20 01/20/25 08:57 Docusate Sodium 100 Mg Capsule PO 100 mg DAILY RAMA Administration Ferrous Sulfate 142 mg 01/16/25 12:00 01/18/25 11:26 Ferrous Sulfate Dried 142 Mg Tabcr PO 142 mg DAILY@1200 RAMA Administration Fluticasone/Umeclidinium/Vilanterol 1 puff 01/11/25 09:00 01/20/25 08:02 Fluticasone/Umeclidin/Vilanter 100-62.5-25 Mcg Ellipta INHALATION 1 puff DAILY RAMA Administration Furosemide 40 mg 01/10/25 14:20 01/16/25 08:24 Furosemide 40 Mg Tablet PO 40 mg DAILY RAMA Administration Hydrochlorothiazide 25 mg 01/10/25 14:25 01/10/25 15:14 Hydrochlorothiazide 25 Mg Tablet PO Not Given DAILY RAMA Levothyroxine Sodium 125 mcg 01/11/25 06:30 01/20/25 06:05 Levothyroxine Sodium 125 Mcg Tablet PO 125 mcg DAILY@0630 RAMA Administration Meclizine HCl 25 mg 01/10/25 14:06 01/13/25 17:33 Meclizine Hcl 25 Mg Tablet PO 25 mg QID PRN Administration dizziness Meloxicam 15 mg 01/10/25 14:20 01/16/25 08:24 Meloxicam 7.5 Mg Tablet PO 15 mg DAILY ON LICENSE OF [facility] Administration Metolazone 2.5 mg 01/11/25 09:00 01/15/25 08:47 Metolazone 2.5 Mg Tablet PO 2.5 mg Q48HR ON LICENSE OF [facility] Administration Pantoprazole Sodium 40 mg 01/15/25 17:00 01/20/25 08:57 Pantoprazole 40 Mg Tablet PO 40 mg BID RAMA Administration Polyethylene Glycol 17 gm 01/10/25 14:06 Polyethylene Glycol 3350 17 Gm Powd.Pack PO DAILY PRN constipation Polyethylene Glycol 119 gm 01/20/25 20:00 Polyethylene Glycol 3350 238 Gm Bottle PO 01/21/25 05:01 BID@0500,2000 ON LICENSE OF [facility] Potassium Chloride 40 meq 01/12/25 09:00 01/20/25 08:57 Potassium Chloride 20 Meq Er Tablet PO 40 meq DAILY RAMA Administration Valsartan 160 mg 01/10/25 14:20 01/10/25 15:14 Valsartan 160 Mg Tablet PO Not Given DAILY RAMA Vitamin D 2,000 units 01/10/25 14:20 01/20/25 08:57 Cholecalciferol 1,000 Units Tablet PO 2,000 units DAILY RAMA Administration Radiology Results: ITS Impressions Chest X-Ray 01/10/25 06:32 Impression: Clear lungs. T11 compression deformity. Head CT 01/15/25 11:59 IMPRESSION: 1. No acute intracranial process. 2. 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 Carotid Doppler Study 01/17/25 12:30 IMPRESSION: 1. >=70% (but less than near occlusion) stenosis in the right internal carotid artery. 2. 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 There is also no identifiable flow within the left vertebral artery which may also be occluded. Consider further evaluation with carotid CT angiogram for more definitive determination. Labs Labs: Laboratory Results - last 24 hr 01/20/25 04:38 WBC 10.1 H RBC 3.88 L Hgb 8.7 L Hct 31.0 L MCV 79.9 L MCH 22.4 L MCHC 28.1 L RDW 21.5 H Plt Count 277 MPV 9.4 Immature Gran % (Auto) 0.9 H Neut % (Auto) 69.4 Lymph % (Auto) 16.7 L [place] % (Auto) 8.9 H Eos % (Auto) 3.5 Baso % (Auto) 0.6 Lymph # (Auto) 1.69 [place] # (Auto) 0.9 H Eos # (Auto) 0.4 H Baso # (Auto) 0.1 Abs Immat Gran (auto) 0.09 H Absolute Neuts (auto) 7.0 H Absolute Nucleated RBC 0.000 Band Neutrophils % Not Reportable Nucleated RBC % 0.0 Platelet Estimate Adequate Hypochromasia 1+ Poikilocytosis 1+ Anisocytosis 1+ Ovalocytes 1+ Crenated Cell 1+ Schistocytes None seen Sodium 138 Potassium 4.1 Chloride 109 H Carbon Dioxide 22 Anion Gap 7 BUN 23 H Creatinine 1.04 H Estim Creat Clear Calc 33 Estimated GFR 50 L Glucose 104 Calcium 9.5 Magnesium 1.4 L Total Bilirubin 0.7 AST 26 ALT 17 Alkaline Phosphatase 66 Total Protein 7.0 Albumin 3.6
[2025-01-20] MEDS: ALPRAZolam (*CRX) 0.25 MG TABLET PO ×2 (15:26→20:10)
--- NOTE | 2025-01-20 15:50 | P.PNGI_ITS ---
Progress Note: A&P Assessment and Plan (1) Iron deficiency anemia: Code(s): D50.9 - Iron deficiency anemia, unspecified Status: Acute Assessment and Plan: Patient with iron deficiency anemia, planned for EGD and colonoscopy tomorrow. Prep orders left. Subjective Date/time seen: 01/20/25 15:50 Interval history: Hemodynamically stable, no melena. Exam Narrative: Unchanged fro Objective Data Vital Signs Vital Signs: Vital Signs - 24 hr 01/19/25 20:00 01/19/25 20:37 01/19/25 20:39 Temperature Pulse Rate 84 Respiratory Rate 20 Blood Pressure Pulse Oximetry 94 Oxygen Delivery Room Air Room Air Fraction of Inspired Oxygen 21 01/19/25 20:46 01/19/25 21:02 01/20/25 01:27 Temperature 97.8 F Pulse Rate 85 91 90 Respiratory Rate 20 20 20 Blood Pressure 162/54 H Pulse Oximetry 98 Oxygen Delivery Fraction of Inspired Oxygen 01/20/25 01:42 01/20/25 03:58 01/20/25 07:53 Temperature 97.9 F Pulse Rate 87 93 Respiratory Rate 20 20 Blood Pressure 141/64 H Pulse Oximetry 94 92 Oxygen Delivery Room Air Fraction of Inspired Oxygen 21 01/20/25 07:53 01/20/25 08:03 01/20/25 09:00 Temperature Pulse Rate 93 90 Respiratory Rate 20 20 Blood Pressure Pulse Oximetry Oxygen Delivery Room Air Fraction of Inspired Oxygen 01/20/25 13:41 01/20/25 14:00 01/20/25 14:00 Temperature 98.8 F Pulse Rate 84 81 Respiratory Rate 20 20 Blood Pressure 140/53 L Pulse Oximetry 96 95 Oxygen Delivery Room Air Fraction of Inspired Oxygen 21 01/20/25 14:07 Temperature Pulse Rate 88 Respiratory Rate 20 Blood Pressure Pulse Oximetry Oxygen Delivery Fraction of Inspired Oxygen Intake/Output Intake/Output: Intake & Output 01/17/25 01/18/25 01/19/25 01/20/25 23:59 23:59 23:59 23:59 Intake Total 1900 1490.5 2560 1370 Balance 1900 1490.5 2560 1370 Meds/Results Medications: Active Medications Generic Name Dose Route Start Last Admin Trade Name Freq PRN Reason Stop Dose Admin Acetaminophen 650 mg 01/10/25 08:17 01/20/25 02:57 Acetaminophen 325 Mg Tablet PO 650 mg Q4H PRN Administration Mild Pain (1-3) or Fever Albuterol/Ipratropium 3 ml 01/10/25 08:00 01/20/25 14:00 Ipratropium 0.5 Mg/Albuterol Sulfate 2.5 Mg Ampul.Neb 3 Ml INHALATION 3 ml Q6HRT DEJON Administration Alendronate Sodium 70 mg 01/13/25 06:30 01/20/25 06:05 Alendronate Sodium 70 Mg Tablet PO 70 mg Mo@0630 DEJON Administration Alprazolam 0.25 mg 01/10/25 14:06 01/20/25 15:26 Alprazolam (*Crx) 0.25 Mg Tablet PO 01/30/25 23:59 0.25 mg TID PRN Administration Anxiety Apixaban 5 mg 01/10/25 21:00 01/13/25 08:00 Apixaban 5 Mg Tablet PO 5 mg Q12HR DEJON Administration Aspirin 81 mg 01/16/25 09:00 01/20/25 08:57 Aspirin 81 Mg Enteric Tablet PO 81 mg QAM DEJON Administration Atorvastatin Calcium 40 mg 01/10/25 18:00 01/19/25 17:20 Atorvastatin 40 Mg Tablet PO 40 mg QPM DEJON Administration Benzonatate 100 mg 01/10/25 14:06 Benzonatate 100 Mg Capsule PO TID PRN cough Bisacodyl 20 mg 01/20/25 17:00 Bisacodyl 5 Mg Tablet Ec PO 1700 [facility] Docusate Sodium 100 mg 01/10/25 14:20 01/20/25 08:57 Docusate Sodium 100 Mg Capsule PO 100 mg DAILY DEJON Administration Ferrous Sulfate 142 mg 01/16/25 12:00 01/18/25 11:26 Ferrous Sulfate Dried 142 Mg Tabcr PO 142 mg DAILY@1200 [facility] Administration Fluticasone/Umeclidinium/Vilanterol 1 puff 01/11/25 09:00 01/20/25 08:02 Fluticasone/Umeclidin/Vilanter 100-62.5-25 Mcg Ellipta INHALATION 1 puff DAILY DEJON Administration Furosemide 40 mg 01/10/25 14:20 01/16/25 08:24 Furosemide 40 Mg Tablet PO 40 mg DAILY DEJON Administration Hydrochlorothiazide 25 mg 01/10/25 14:25 01/10/25 15:14 Hydrochlorothiazide 25 Mg Tablet PO Not Given DAILY DEJON Levothyroxine Sodium 125 mcg 01/11/25 06:30 01/20/25 06:05 Levothyroxine Sodium 125 Mcg Tablet PO 125 mcg DAILY@0630 DEJON Administration Meclizine HCl 25 mg 01/10/25 14:06 01/13/25 17:33 Meclizine Hcl 25 Mg Tablet PO 25 mg QID PRN Administration dizziness Meloxicam 15 mg 01/10/25 14:20 01/16/25 08:24 Meloxicam 7.5 Mg Tablet PO 15 mg DAILY DEJON Administration Metolazone 2.5 mg 01/11/25 09:00 01/15/25 08:47 Metolazone 2.5 Mg Tablet PO 2.5 mg Q48HR DEJON Administration Pantoprazole Sodium 40 mg 01/15/25 17:00 01/20/25 08:57 Pantoprazole 40 Mg Tablet PO 40 mg BID DEJON Administration Polyethylene Glycol 17 gm 01/10/25 14:06 Polyethylene Glycol 3350 17 Gm Powd.Pack PO DAILY PRN constipation Polyethylene Glycol 119 gm 01/20/25 20:00 Polyethylene Glycol 3350 238 Gm Bottle PO 01/21/25 05:01 BID@0500,2000 [facility] Potassium Chloride 40 meq 01/12/25 09:00 01/20/25 08:57 Potassium Chloride 20 Meq Er Tablet PO 40 meq DAILY DEJON Administration Valsartan 160 mg 01/10/25 14:20 01/10/25 15:14 Valsartan 160 Mg Tablet PO Not Given DAILY DEJON Vitamin D 2,000 units 01/10/25 14:20 01/20/25 08:57 Cholecalciferol 1,000 Units Tablet PO 2,000 units DAILY DEJON Administration Radiology Results: ITS Impressions Chest X-Ray 01/10/25 06:32 Impression: Clear lungs. T11 compression deformity. Head CT 01/15/25 11:59 IMPRESSION: 1. No acute intracranial process. 2. 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 Carotid Doppler Study 01/17/25 12:30 IMPRESSION: 1. >=70% (but less than near occlusion) stenosis in the right internal carotid artery. 2. 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 There is also no identifiable flow within the left vertebral artery which may also be occluded. Consider further evaluation with carotid CT angiogram for more definitive determination. Labs Labs: Laboratory Results - last 24 hr 01/20/25 04:38 WBC 10.1 H RBC 3.88 L Hgb 8.7 L Hct 31.0 L MCV 79.9 L MCH 22.4 L MCHC 28.1 L RDW 21.5 H Plt Count 277 MPV 9.4 Immature Gran % (Auto) 0.9 H Neut % (Auto) 69.4 Lymph % (Auto) 16.7 L [place] % (Auto) 8.9 H Eos % (Auto) 3.5 Baso % (Auto) 0.6 Lymph # (Auto) 1.69 [place] # (Auto) 0.9 H Eos # (Auto) 0.4 H Baso # (Auto) 0.1 Abs Immat Gran (auto) 0.09 H Absolute Neuts (auto) 7.0 H Absolute Nucleated RBC 0.000 Band Neutrophils % Not Reportable Nucleated RBC % 0.0 Platelet Estimate Adequate Hypochromasia 1+ Poikilocytosis 1+ Anisocytosis 1+ Ovalocytes 1+ Crenated Cell 1+ Schistocytes None seen Sodium 138 Potassium 4.1 Chloride 109 H Carbon Dioxide 22 Anion Gap 7 BUN 23 H Creatinine 1.04 H Estim Creat Clear Calc 33 Estimated GFR 50 L Glucose 104 Calcium 9.5 Magnesium 1.4 L Total Bilirubin 0.7 AST 26 ALT 17 Alkaline Phosphatase 66 Total Protein 7.0 Albumin 3.6
[2025-01-20] MEDS: BISACODYL 5 MG TABLET EC 20 MG PO (16:42)
[2025-01-20] MEDS: ATORVASTATIN 40 MG TABLET PO (16:43)
[2025-01-20] MEDS: polyethylene glycoL 3350 238 GM BOTTLE 119 GM PO (20:10)
[2025-01-21] VITALS (13 sets, daily range): BP systolic 97–154; BP diastolic 39–68; PULSE 77–96; RESP 18–24; TEMP 36.5–36.6; O2SAT 91–98
[2025-01-21] MEDS: IPRATROPIUM 0.5 MG/ALBUTEROL SULFATE 2.5 MG AMPUL.NEB 3 ML INHALATION ×3 (03:34→14:46)
[2025-01-21] MEDS: polyethylene glycoL 3350 238 GM BOTTLE 119 GM PO (04:59)
[2025-01-21 05:21] LABS: Basophils Absolute Auto 0.1 K/mm3 (0.0-0.1); Basophils Percent Auto 0.5 % (0.2-1.2); Eosinophils Absolute Auto 0.3 K/mm3 (0-0.3); Eosinophils Percent Auto 3.1 % (0-4.4); Hematocrit 32.7 % (37.0-47.0); Hemoglobin 9.2 g/dL (12.0-15.0); Immature Granulocyte Absolute 0.05 K/mm3 (0.00-0.031); Immature Granulocyte Percent A 0.5 % (0-0.5); Lymphocytes Absolute Auto 1.79 K/mm3 (0.9-3.2); Lymphocytes Percent Auto 16.2 % (18.3-44.2); Mean Corpuscular HGB Conc 28.1 g/dl (32-36); Mean Corpuscular Hemoglobin 22.2 pg (26-34); Mean Corpuscular Volume 78.8 fl (80-100); Mean Platelet Volume 9.3 fl (7.4-10.4); Monocytes Percent Auto 9.1 % (2.6-8.5); Neutrophils Absolute Auto 7.8 K/mm3 (1.3-6.7); Neutrophils Percent Auto 70.6 % (45.5-73.1); Platelet Count Result 299 k/mm3 (150-375); Red Blood Count 4.15 M/mm3 (4.2-5.4)
[2025-01-21 05:34] LABS: Alanine Aminotransferase 17 U/L (6-35); Albumin Level 3.8 g/dL (3.5-5.1); Alkaline Phosphatase 68 U/L (38-126); Anion Gap 8 mmol/L (4-12); Aspartate Amino Transferase 25 U/L (14-36); Bilirubin,Total 0.9 mg/dL (0.2-1.3); Blood Urea Nitrogen 18 mg/dL (7-17); Calcium 9.5 mg/dL (8.4-10.2); Carbon Dioxide 21 mmol/L (22-30); Chloride 110 mmol/L (98-107); Estimated CRCL calculation 35 ml/min; Estimated Glomerular Filt Rate 54; Glucose 100 mg/dL (65-110); Magnesium 1.9 mg/dL (1.6-2.3); Potassium 3.8 mmol/L (3.4-5.0); Sodium 139 mmol/L (137-145)
[2025-01-21 06:45] LABS: Anisocytosis 2+; Hypochromasia 1+; Platelet Estimate Adequate (Adequate)
[2025-01-21 06:46] LABS: Microcytosis 1+ (NORMAL); Ovalocytes 1+; Schistocytes None Seen
[2025-01-21] MEDS: FLUTICASONE/UMECLIDIN/VILANTER 100-62.5-25 MCG ELLIPTA 1 PUFF INHALATION (08:54)
--- NOTE | 2025-01-21 10:55 | PC.NURSE ---
To GI Lab via wheelchair. Dentures left at bedside.
--- NOTE | 2025-01-21 11:17 | PCOTNOTE ---
Patient is off the floor at this time. Patient went down for an EGD and Colonoscopy.
[2025-01-21] MEDS: LACTATED RINGERS 1,000 ML 150 ML IV CONT (11:18)
--- NOTE | 2025-01-21 11:36 | P.PNAN_ITS ---
Anes - Initial Pre Proc Eval Procedure: Operation Date: 01/21/25 14:00 Proposed Procedures p Esophagogastroduodenoscopy & Colonoscopy - Dominick Hutchison MD Date/Time: 01/21/25 11:36 Surgeon: Smiley Medrano APRN Pre Op Diagnosis: hypokalemia, JAZIEL, history of COPD Patient Data Age: 84 Gender: F Height: 1.57 m Weight: 76.5 kg Last Vital Signs Temp 36.5 C 01/21/25 11:14 Pulse 96 01/21/25 11:14 Resp 18 01/21/25 11:14 BP 154/68 H 01/21/25 11:14 Pulse Ox 94 01/21/25 11:14 O2 Del Method Room Air 01/21/25 11:14 FiO2 21 01/20/25 20:39 Allergies Allergy/AdvReac Type Severity Reaction Status Date / Time levofloxacin AdvReac Abdominal Verified 01/21/25 11:10 Pain Home Medications Medication Instructions Recorded Confirmed Type albuterol sulfate 2.5 mg/3 mL 2.5 mg inhalation Q4-6H PRN 10/26/24 01/10/25 History (0.083 %) solution for nebulization shortness of breath or wheezing albuterol sulfate 90 mcg/actuation 2 puff inhalation Q4-6H PRN 10/26/24 01/10/25 History aerosol inhaler shortness of breath or wheezing alendronate 70 mg tablet 70 mg PO WEEKLY 10/26/24 01/10/25 History aspirin 81 mg chewable tablet 81 mg PO DAILY 10/26/24 01/10/25 History atorvastatin 40 mg tablet 40 mg PO QPM 10/26/24 01/10/25 History benzonatate 100 mg capsule 100 mg PO TID PRN cough 10/26/24 01/10/25 History clopidogrel 75 mg tablet 75 mg PO DAILY 10/26/24 01/10/25 History levothyroxine 125 mcg tablet 125 mcg PO DAILY 10/26/24 01/10/25 History meclizine 25 mg tablet 25 mg PO QID PRN dizziness 10/26/24 01/10/25 History pantoprazole 40 mg tablet,delayed 40 mg PO DAILY 10/26/24 01/10/25 History release valsartan 160 1 tablet PO DAILY 10/26/24 01/10/25 History mg-hydrochlorothiazide 25 mg tablet alprazolam 0.25 mg tablet 0.25 mg PO TID PRN Anxiety #10 tabs 11/05/24 01/10/25 Rx citalopram 10 mg tablet (Celexa) 10 mg PO QAM #30 tabs 11/05/24 01/10/25 Rx acetaminophen 325 mg tablet 325 mg PO Q6H PRN pain 01/10/25 01/10/25 History (Tylenol) apixaban 5 mg tablet (Eliquis) 5 mg PO BID 01/10/25 01/10/25 History cholecalciferol (vitamin D3) 50 2,000 unit PO DAILY 01/10/25 01/10/25 History mcg (2,000 unit) capsule docusate sodium 100 mg capsule 100 mg PO DAILY 01/10/25 01/10/25 History fluticasone fur. 100 mcg-umeclid 1 inh inhalation DAILY 01/10/25 01/10/25 History 62.5 mcg-vilant 25 mcg inhalat.powder (Trelegy Ellipta) furosemide 40 mg tablet 40 mg PO DAILY 01/10/25 01/10/25 History ipratropium 0.5 mg-albuterol 3 mg 3 ml inhalation QID PRN shortness 01/10/25 01/10/25 History (2.5 mg base)/3 mL nebulization of breath or wheezing soln meloxicam 15 mg tablet 15 mg PO DAILY 01/10/25 01/10/25 History metolazone 2.5 mg tablet 2.5 mg PO .Q48HR 01/10/25 01/10/25 History polyethylene glycol 3350 17 gram 17 g PO DAILY PRN constipation 01/10/25 01/10/25 History oral powder packet (Powderlax) Laboratory Tests 01/21/25 04:43 WBC 11.0 H K/mm3 (4.5-10.0) RBC 4.15 L M/mm3 (4.2-5.4) Hgb 9.2 L g/dL (12.0-15.0) Hct 32.7 L % (37.0-47.0) MCV 78.8 L fl (80-100) MCH 22.2 L pg (26-34) MCHC 28.1 L g/dl (32-36) RDW 22.0 H % (11.5-14.5) Plt Count 299 k/mm3 (150-375) MPV 9.3 fl (7.4-10.4) Immature Gran % (Auto) 0.5 % (0-0.5) Neut % (Auto) 70.6 % (45.5-73.1) Lymph % (Auto) 16.2 L % (18.3-44.2) [place] % (Auto) 9.1 H % (2.6-8.5) Eos % (Auto) 3.1 % (0-4.4) Baso % (Auto) 0.5 % (0.2-1.2) Lymph # (Auto) 1.79 K/mm3 (0.9-3.2) [place] # (Auto) 1.0 H K/mm3 (0.1-0.6) Eos # (Auto) 0.3 K/mm3 (0-0.3) Baso # (Auto) 0.1 K/mm3 (0.0-0.1) Abs Immat Gran (auto) 0.05 H K/mm3 (0.00-0.031) Absolute Neuts (auto) 7.8 H K/mm3 (1.3-6.7) Absolute Nucleated RBC 0.000 K/mm3 (0.0-0.012) Band Neutrophils % Not Reportable Nucleated RBC % 0.0 % (0.0-0.2) Platelet Estimate Adequate (Adequate) Hypochromasia 1+ Anisocytosis 2+ Microcytosis 1+ (NORMAL) Ovalocytes 1+ Schistocytes None seen Sodium 139 mmol/L (137-145) Potassium 3.8 mmol/L (3.4-5.0) Chloride 110 H mmol/L (98-107) Carbon Dioxide 21 L mmol/L (22-30) Anion Gap 8 mmol/L (4-12) BUN 18 H mg/dL (7-17) Creatinine 0.98 mg/dL (0.7-1.0) Estim Creat Clear Calc 35 ml/min Estimated GFR 54 L (59 - ) Glucose 100 mg/dL (65-110) Calcium 9.5 mg/dL (8.4-10.2) Magnesium 1.9 mg/dL (1.6-2.3) Total Bilirubin 0.9 mg/dL (0.2-1.3) AST 25 U/L (14-36) ALT 17 U/L (6-35) Alkaline Phosphatase 68 U/L (38-126) Total Protein 7.0 g/dL (6.3-8.2) Albumin 3.8 g/dL (3.5-5.1) Patient hx anesthesia problems: none Family hx anesthesia problems: none Results Review: All pre-operative results and documents have been reviewed as part of the pre- operative evaluation. 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 CVA (cerebral vascular accident) (04/2024) Osteoporosis Essential hypertension GERD (gastroesophageal reflux disease) Hypothyroidism Emphysema/COPD Surgical History Surgical History Peripheral arterial disease with history of revascularization (~04/2024) Bilateral lower extremity stents Status post cataract extraction of both eyes with insertion of intraocular lens Status post open reduction with internal fixation of fracture Left patellar fracture History of loop recorder Status post urethral diverticulectomy History of appendectomy History of tonsillectomy and adenoidectomy History of bladder suspension procedure Family History Family History Sibling Asthma Father Diabetes mellitus Hypertension Social History Social History Social History: The patient been since 2023. She is a former smoker she smoked 2.5 packs of cigarettes per day but quit in 1993. She used to drink 3-4 alcoholic beverages a week in still will occasionally drink alcohol in moderation. She raised 5 children. 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 She still drives. She ambulates with a cane. Code status: Full code Surrogate decision maker: Meera Schultz (daughter) Smoking status: Former smoker Alcohol intake: former Substance use: never Do You Feel Safe in your Home?: Yes Lack of Transportation: No Lack of Food: Never True Current Housing: I Have Housing Concerned About Future Housing: No Difficulty Paying Gas/Electric Bills: No Difficulty Paying for Meds: No Currently Unemployed: No Education: High School Diploma/GED Difficulty w/ Childcare or Family Care: No Spiritual care concerns: No Anes - Eval Final PreProcedure Day of Procedure 01/21/25 11:36 Patient weight: obese Heart: regular rate and rhythm Lungs: clear to auscultation Airway: Mallampati scale class II Neurological: alert and oriented Last oral intake: >/= 8 hours ASA classification: III Emergent: no Anesthetic plan: proceed Anesthesia type and monitoring: general GIVS and standard monitoring Results Review: All pre-operative results and documents have been reviewed as part of the pre- operative evaluation. Informed Consent: The patient's anesthetic plan and its attendant risks and benefits were discusse d with the patient/family/POA. Questions were solicited and answers provided to the satisfaction of the patient/family/POA.
--- NOTE | 2025-01-21 13:43 | PC.NURSE ---
Returned from GI Lab via stretcher.
--- NOTE | 2025-01-21 14:50 | PCOTNOTE ---
Patient refused to participate this afternoon. Patient had testing and a procedure earlier today.
--- NOTE | 2025-01-21 15:03 | P.DS_ITS ---
DS: Admitting Diagnosis Discharge Date 01/21/2025 Admitting Diagnosis Dizziness DS: Discharge Diagnosis Discharge Diagnosis (1) Acute kidney injury: Code(s): N17.9 - Acute kidney failure, unspecified Status: Acute (2) Dizziness: Code(s): R42 - Dizziness and giddiness Status: Acute (3) COPD (chronic obstructive pulmonary disease): Qualifiers: COPD type: COPD with acute lower respiratory infection Qualified Code(s): J44.0 - Chronic obstructive pulmonary disease with (acute) lower respiratory infection Code(s): J44.9 - Chronic obstructive pulmonary disease, unspecified Status: Acute (4) Acute hypokalemia: Code(s): E87.6 - Hypokalemia Status: Acute (5) Elevated brain natriuretic peptide (BNP) level: Code(s): R79.89 - Other specified abnormal findings of blood chemistry Status: Acute (6) UTI (urinary tract infection): Qualifiers: Urinary tract infection type: acute cystitis Hematuria presence: without hematuria Qualified Code(s): N30.00 - Acute cystitis without hematuria Code(s): N39.0 - Urinary tract infection, site not specified Status: Suspected (7) Hypothyroidism: Qualifiers: Hypothyroidism type: unspecified Qualified Code(s): E03.9 - Hypothyroidism, unspecified Code(s): E03.9 - Hypothyroidism, unspecified Status: Chronic (8) Essential hypertension: Code(s): I10 - Essential (primary) hypertension Status: Chronic (9) Chronic anemia: Code(s): D64.9 - Anemia, unspecified Status: Acute (10) Occult blood in stools: Code(s): R19.5 - Other fecal abnormalities Status: Acute (11) Mitral valve stenosis: Code(s): I05.0 - Rheumatic mitral stenosis Status: Acute DS: Summary Hospital Course Hospital Course: 84 y/o F with PMH of vertigo, CVA, HTN, GERD, hypothyroidism, COPD, and 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 The patient presents here from home on 01/10 for further evaluation of dizziness and shortness of breath. She reports she has been dizzy for the past 2 days. She further describes this as a haze and like the room was spinning. She has a history of vertigo, however she reports the dizziness felt different than her usual. Now has mostly resolved, patient took her home Meclizine which eventually helped partial resolve her symptoms. States she still has a little dizziness with exertion. She is also reporting worsening shortness of breath and a chronic cough for the past 2 months, however has some level of chronic shortness of breath due to COPD. Cough has been nonproductive. She initially sought care with her PCP 2 weeks ago who increased her diuretics - she reports her LE edema significantly improved. Patient saw her paver installer 3 days ago and was given eliquis. She denies associated nausea, vomiting, diarrhea, fever, chills, chest pain, syncope, or abdominal pain. She also denies dysuria, urinary frequency, urinary hesitancy, flank pain, or suprapubic pain. Initial VS at presentation: 97.30° F, HR 90, R 22, 133/92, and 96% on RA. ED workup showed: WBC 18.6, hemoglobin 8.5 (previously 9.4 on 11/17/2024), potassium 2.9, creatinine 1.61 and GFR 30 (previously 1.36 and GFR 37 on 11/17/2024), BNP 1180, and initial troponin was 0.030, normal TSH, UA suspicious for UTI) however many epithelial cells, may be contaminant). CXR showed clear lungs and a T11 compression deformity. Head CT showed no acute intracranial process and moderate scattered white matter hypoattenuation consistent with chronic small-vessel ischemic disease as well as a few scattered old lacunar infarcts in the bilateral periventricular white matter in caudate nuclei. # Acute kidney injury on ckd stage 3: Creatinine 1.61 and GFR 30. Previously 1.36 and GFR 37 on 11/17/2024. Possible UTI, however many epithelial cells which may indicate contamination. Started on ABX, follow culture. May be contributing to worsening renal function. BNP elevated, no known history of CHF. Has been reporting shortness of breath and cough. No echo on file, ordered. Received some IV fluid on admission. Trend renal function. Correct electrolytes as needed, monitor. Furosemide metolazone and meloxicam on hold. Creatinine stable in improving. dc creatinine 0.9 # Dizziness: Dizziness x2 days. patient has severe mitral valve stenosis on TTE which could be contributing History of vertigo and stroke. No change in dizziness with meclizine p.o. prior to arrival. Continue patient's home med: Meclizine 15 mg daily. fall precautions stable 01/12- short run of vtach, replaced mg, k. tsh was checked and normal -iron panel cardiology consulted # COPD (chronic obstructive pulmonary disease): Wheezing and rhonchi upon arrival to the ED on 01/10. DuoNebs q.6 rama. Will hold on abx and steroids, no increased O2 requirement and cough remains dry (no increased sputum production). stable, no sob monitor for now IS, out of bed TID and prn # Acute hypokalemia: Potassium 2.9 upon arrival. Replete and monitor # Elevated brain natriuretic peptide (BNP) level: # UTI (urinary tract infection): UA showed 2+ leuks, 11-20 WBC, many epithelial cells. Contaminant versus infection. Check urine culture, follow. Started on ceftriaxone on 01/10. 01/12- continue antibiotics-changed to po 01/14 cefdinir 300 mg bid (on 01/12) finished the course of treatment during hospital stay # Hypothyroidism: Continue home Synthroid. TSH 1.77 on 01/10/2025. # Essential hypertension: Chronic, stable Continue home medications: Lasix, metolazone. Hold valsartan-hydrochlorothiazide, believes she was taken off this medication. Resume valsartan and Lasix at discharge. # Chronic anemia: hg dropped to 6.7/19.4 during the hospitalization Eliquis on hold type/screen and 1 unit if PRBC ordered Iron studies ordered:iron 29, %satur 7, tibc 404 gi is following- no acute interventions 01/14 hg stable-continue to trend 01/18 hemoglobin down to 6.7 again. Transfuse 1 unit PRBC GI reconsulted as she will need to be on anticoagulation due to atrial fibrillation EGD and colonoscopy on 01/21/2025: EGD normal, colonoscopy diverticulosis colonic polyps internal hemorrhoids Okay per GI to resume anticoagulation. # Occult blood in stools: Patient denies blood in stool --GI consulted EGD and colonoscopy planned on 01/21/2025 # Mitral valve stenosis: BNP 1180 01/13 TTE Notable for severe mitral valve stenosis 1. Complete two-dimensional, color flow and Doppler transthoracic echocardiogram is performed. 2. Left ventricular chamber dimension is normal. 3. Left ventricular systolic function is normal, estimated at 65-70%. 4. There is moderately increased left ventricular wall thickness. 5. The left ventricular diastolic function is grade I diastolic dysfunction. 6. Right ventricular systolic function is normal. 7. Left atrial chamber dimension is severely enlarged. 8. Right atrial chamber dimension is mildly enlarged. 9. There is moderate to severe aortic valve stenosis with a peak velocity of 347 cm/s, mean gradient of 28 mmHg, and aortic valve area of 0.9 cm2. 10. There is mild aortic valve regurgitation. 11. The mitral valve has thickened leaflets. 12. The mitral valve annulus is severely calcified. 13. There is severe mitral valve stenosis. Mean gradient of 12mmHg. 14. There is mild mitral valve regurgitation. 15. There is mild tricuspid valve regurgitation. 16. There is small anterior pericardial effusion. Monitor I&Os daily weights. CXR showed no evidence of pulmonary congestion. On Lasix 40 mg p.o. daily and metolazone 2.5 mg Q 48 hours - hold since creatinine trending up. Hold HCTZ 25 mg daily (believes her provider d/c'd this medication and generally would choose either furosemide or hctz) Initially presented with rhonchi and wheezing on exam, does have history of COPD. Shortness of breath secondary to COPD versus new CHF --Needs outpatient follow up with cardiology, valve clinic for severe mitral v alve stenosis --stress test to evaluate for underlying CAD as cause for NSVT - can be done as outpatient Continue on Lasix. Hold metolazone. Stop hydrochlorothiazide. Continue on valsartan. # new left arm and leg weakness 01/15/[address] unchanged. This is stable # complete occlusion left internal carotid artery. # carotid artery stenosis right more than 70% need to see vascular surgery which she already following with. # moderate aortic stenosis # history of CVA # atrial fibrillation detected on loop recorder. Started on Eliquis.. Patient was reluctant to take warfarin given moderate mitral stenosis. Eliquis on hold due to anemia # Diet: Heart healthy, dietary supplements # DVT Prophylaxis: Eliquis-on hold, SCD resume Eliquis at discharge # Code Status: Full code Time Spent with Patient Time attestation: Total time spent providing and/or coordinating discharge services: 35 minutes Exam Narrative: General - Awake and alert. No acute distress Eyes - PERRLA, EOM intact ENT - No thrush, No erythema Neck - No noticeable or palpable swelling Lymph Nodes - No lymphadenopathy Cardiovascular - RRR no m/r/g, no JVD Lungs: Clear to auscultation, No wheezing, use of accessory muscles, no crackles or wheezes. Skin - Skin warm and dry, no wounds or rashes Abdomen - Normal bowel sounds, abdomen soft and nontender Extremities - No edema, cyanosis or clubbing Musculoskeletal - 4/5 strength left arm, 5/5 strength right arm, bilateral legs 5/5 strength, normal range of motion, no swollen or erythematous joints. Neurological – Alert and oriented x 3, CN 2-12 grossly intact. Psych: Normal mood and affect DS: Data Data Completed and Pending Completed studies during hospitalization: Exam Type: CA echo doppler color flow Study Info Indications - NSVT Complete two-dimensional, color flow and Doppler transthoracic echocardiogram is performed. Summary 1. Complete two-dimensional, color flow and Doppler transthoracic echocardiogram is performed. 2. Left ventricular chamber dimension is normal. 3. Left ventricular systolic function is normal, estimated at 65-70%. 4. There is moderately increased left ventricular wall thickness. 5. The left ventricular diastolic function is grade I diastolic dysfunction. 6. Right ventricular systolic function is normal. 7. Left atrial chamber dimension is severely enlarged. 8. Right atrial chamber dimension is mildly enlarged. 9. There is moderate to severe aortic valve stenosis with a peak velocity of 347 cm/s, mean gradient of 28 mmHg, and aortic valve area of 0.9 cm2. 10. There is mild aortic valve regurgitation. 11. The mitral valve has thickened leaflets. 12. The mitral valve annulus is severely calcified. 13. There is severe mitral valve stenosis. Mean gradient of 12mmHg. 14. There is mild mitral valve regurgitation. 15. There is mild tricuspid valve regurgitation. 16. There is small anterior pericardial effusion. Left Ventricle Left ventricular chamber dimension is normal. Left ventricular systolic function is normal, estimated at 65-70%. There is moderately increased left ventricular wall thickness. The left ventricular diastolic function is grade I diastolic dysfunction. Right Ventricle Right ventricular chamber dimension is normal. Right ventricular systolic function is normal. Left Atria Left atrial chamber dimension is severely enlarged. Right Atria Right atrial chamber dimension is mildly enlarged. Atrial Septum Intact interatrial septum visualized by color flow imaging. Aortic Valve The aortic valve is probable trileaflet. There is moderate to severe aortic valve stenosis with a peak velocity of 347 cm/s, mean gradient of 28 mmHg, and aortic valve area of 0.9 cm2. There is mild aortic valve regurgitation. There is moderate aortic valve calcification. Pulmonic Valve The pulmonic valve is not well visualized. There is trace pulmonic regurgitation. Mitral Valve The mitral valve has thickened leaflets. There is severe mitral valve stenosis. Mean gradient of 12mmHg. There is mild mitral valve regurgitation. The mitral valve annulus is severely calcified. Tricuspid Valve There is mild tricuspid valve regurgitation. Pericardium/Pleural There is small anterior pericardial effusion. Inferior Vena Cava Normal inferior vena cava with >50% collapse upon inspiration consistent with normal right atrial pressure, 3 mmHg. Aorta The aortic root size at the sinus of Valsalva is normal. Pending studies at discharge: Pending at discharge 01/21/25 13:18 Surgical [PTH] Routine Labs on day of discharge: Labs from last 24 hours 01/21/25 04:43 WBC 11.0 H RBC 4.15 L Hgb 9.2 L Hct 32.7 L MCV 78.8 L MCH 22.2 L MCHC 28.1 L RDW 22.0 H Plt Count 299 MPV 9.3 Immature Gran % (Auto) 0.5 Neut % (Auto) 70.6 Lymph % (Auto) 16.2 L Phillips % (Auto) 9.1 H Eos % (Auto) 3.1 Baso % (Auto) 0.5 Lymph # (Auto) 1.79 Phillips # (Auto) 1.0 H Eos # (Auto) 0.3 Baso # (Auto) 0.1 Abs Immat Gran (auto) 0.05 H Absolute Neuts (auto) 7.8 H Absolute Nucleated RBC 0.000 Band Neutrophils % Not Reportable Nucleated RBC % 0.0 Platelet Estimate Adequate Hypochromasia 1+ Anisocytosis 2+ Microcytosis 1+ Ovalocytes 1+ Schistocytes None seen Sodium 139 Potassium 3.8 Chloride 110 H Carbon Dioxide 21 L Anion Gap 8 BUN 18 H Creatinine 0.98 Estim Creat Clear Calc 35 Estimated GFR 54 L Glucose 100 Calcium 9.5 Magnesium 1.9 Total Bilirubin 0.9 AST 25 ALT 17 Alkaline Phosphatase 68 Total Protein 7.0 Albumin 3.8 Imaging Radiologist's impression: ITS Impressions Chest X-Ray 01/10/25 06:32 Impression: Clear lungs. T11 compression deformity. Head CT 01/10/25 08:33 IMPRESSION: 1. No acute intracranial process. 2. 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 Head CT 01/15/25 11:59 IMPRESSION: 1. No acute intracranial process. 2. 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 Carotid Doppler Study 01/17/25 12:30 IMPRESSION: 1. >=70% (but less than near occlusion) stenosis in the right internal carotid artery. 2. 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 There is also no identifiable flow within the left vertebral artery which may also be occluded. Consider further evaluation with carotid CT angiogram for more definitive determination. Discharge Plan Discharge Attending physician on discharge: Colton Puri Consulting providers: Phyllis Back; Yasmany Branch; Jaleel Vazquez Discharging Clinician: Colton Puri Anticipated Discharge Date/Time: 01/21/25 15:07 Patient Disposition: Home with Home Health Service Activity: as tolerated Diet: heart healthy Discharge Instructions: Per Care Coordination, patient to discharge with [facility] Home Health services ([phone]) for PT/ and halfway services. Please fax discharge instructions and medication sheets to [phone] Follow-up with your vascular surgeon. Call for appointment Follow-up with paver installer. Call for appointment Patient Instructions: Antibiotic Form, Apixaban (By mouth) Patient Language: Congolese Stand Alone Forms: General Discharge Information Follow-up/Referrals: Saida Back APN-C [Advanced Practice Nurse] - [facility],Hayden Sanchez M.D. [Primary Care Provider] - 1 Week Jaleel Vazquez MD [Physician] - 4 Weeks Discharge Medications: New valsartan [Diovan] 160 mg Tablet 160 mg PO DAILY Qty: 30 0RF Continued atorvastatin 40 mg tablet 40 mg PO QPM albuterol sulfate 2.5 mg /3 mL (0.083 %) solution for nebulization 2.5 mg inhalation Q4-6H PRN (Reason: shortness of breath or wheezing) alendronate 70 mg tablet 70 mg PO WEEKLY Patient Comments: takes on Mondays Rx Instructions: SUNDAYS meclizine 25 mg tablet 25 mg PO QID PRN (Reason: dizziness) benzonatate 100 mg capsule 100 mg PO TID PRN (Reason: cough) pantoprazole 40 mg tablet,delayed release (DR/EC) 40 mg PO DAILY levothyroxine 125 mcg tablet 125 mcg PO DAILY aspirin 81 mg tablet,chewable 81 mg PO DAILY albuterol sulfate 90 mcg/actuation HFA aerosol inhaler 2 puff INHALATION Q4-6H PRN (Reason: shortness of breath or wheezing) alprazolam 0.25 mg Tablet 0.25 mg PO TID PRN (Reason: Anxiety) Qty: 10 0RF furosemide 40 mg tablet 40 mg PO DAILY Eliquis 5 mg tablet 5 mg PO BID acetaminophen [Tylenol] 325 mg tablet 325 mg PO Q6H PRN (Reason: pain) ipratropium-albuterol 0.5 mg-3 mg(2.5 mg base)/3 mL solution for nebulization 3 ml inhalation QID PRN (Reason: shortness of breath or wheezing) cholecalciferol (vitamin D3) 50 mcg (2,000 unit) capsule 2,000 unit PO DAILY docusate sodium 100 mg capsule 100 mg PO DAILY polyethylene glycol 3350 [Powderlax] 17 gram powder in packet 17 g PO DAILY PRN (Reason: constipation) Trelegy Ellipta 100-62.5-25 mcg blister with device 1 inh inhalation DAILY Discontinued clopidogrel 75 mg tablet 75 mg PO DAILY valsartan-hydrochlorothiazide 160-25 mg tablet 1 tablet PO DAILY citalopram [Celexa] 10 mg tablet 10 mg PO QAM Qty: 30 0RF meloxicam 15 mg tablet 15 mg PO DAILY metolazone 2.5 mg tablet 2.5 mg PO .Q48HR Date of admission: 01/13/25 09:56 Primary Care Provider: Afia,Hayden Sanchez Admitting Provider: Toya Ferrer Attending physician on admission: Smiley Medrano Condition: Stable Hospitalist MIPS Heart Failure (Exclusion) Patient has history of Heart Transplant or Left Ventricular Assistive Device?: Yes IF YES, STOP HERE Heart Failure (Qualifier) Patient has current or prior documentation of LVEF less than or equal to 40%, or mod/servere depressed LVSF?: No IF NO, STOP HERE
--- NOTE | 2025-01-21 16:19 | P.PNGI_ITS ---
Progress Note: A&P Assessment and Plan (1) Iron deficiency anemia: Code(s): D50.9 - Iron deficiency anemia, unspecified Status: Acute Assessment and Plan: EGD and colonoscopy reports revealed no significant findings to explain the iron-deficiency anemia. While benign small bowel lesions, such as angiodysplasia, remain a possibility, we opted against further aggressive investigation at this time due to her age and other concurrent medical problems. She should be discharged on iron therapy with close follow-up by GI and her primary care physician. We recommend obtaining a hemoglobin and hematocrit control in 2 weeks. Subjective Date/time seen: 01/21/25 16:19 Objective Data Vital Signs Vital Signs: Vital Signs - 24 hr 01/20/25 20:00 01/20/25 20:39 01/20/25 20:40 Temperature Pulse Rate 85 Respiratory Rate 18 Blood Pressure Pulse Oximetry 93 Oxygen Delivery Room Air Room Air Fraction of Inspired Oxygen 21 01/20/25 20:49 01/20/25 20:52 01/21/25 03:35 Temperature 97.6 F Pulse Rate 87 89 90 Respiratory Rate 18 20 18 Blood Pressure 165/53 H Pulse Oximetry 100 Oxygen Delivery Fraction of Inspired Oxygen 01/21/25 04:23 01/21/25 08:21 01/21/25 08:58 Temperature 97.7 F Pulse Rate 77 83 Respiratory Rate 20 18 18 Blood Pressure 123/51 L Pulse Oximetry 92 93 Oxygen Delivery Room Air Fraction of Inspired Oxygen 01/21/25 08:58 01/21/25 09:10 01/21/25 11:14 Temperature 97.7 F Pulse Rate 83 85 96 Respiratory Rate 18 18 18 Blood Pressure 154/68 H Pulse Oximetry 93 94 Oxygen Delivery Room Air Room Air Fraction of Inspired Oxygen 01/21/25 13:15 01/21/25 13:25 01/21/25 13:35 Temperature Pulse Rate 83 82 84 Respiratory Rate 24 H 21 H 23 H Blood Pressure 101/39 L 97/45 L 127/62 Pulse Oximetry 97 97 96 Oxygen Delivery Room Air Room Air Room Air Fraction of Inspired Oxygen 01/21/25 13:48 01/21/25 14:15 01/21/25 14:48 Temperature 97.8 F Pulse Rate 84 Respiratory Rate 19 Blood Pressure 137/58 L Pulse Oximetry 98 97 91 Oxygen Delivery Room Air Room Air Fraction of Inspired Oxygen 01/21/25 14:48 01/21/25 15:02 Temperature Pulse Rate 87 77 Respiratory Rate 18 18 Blood Pressure Pulse Oximetry Oxygen Delivery Fraction of Inspired Oxygen Intake/Output Intake/Output: Intake & Output 01/18/25 01/19/25 01/20/25 01/21/25 23:59 23:59 23:59 23:59 Intake Total 1490.5 2560 1520 100 Balance 1490.5 2560 1520 100 Meds/Results Medications: Active Medications Generic Name Dose Route Start Last Admin Trade Name Freq PRN Reason Stop Dose Admin Acetaminophen 650 mg 01/10/25 08:17 01/20/25 02:57 Acetaminophen 325 Mg Tablet PO 650 mg Q4H PRN Administration Mild Pain (1-3) or Fever Albuterol/Ipratropium 3 ml 01/10/25 08:00 01/21/25 14:46 Ipratropium 0.5 Mg/Albuterol Sulfate 2.5 Mg Ampul.Neb 3 Ml INHALATION 3 ml Q6HRT DEJON Administration Alendronate Sodium 70 mg 01/13/25 06:30 01/20/25 06:05 Alendronate Sodium 70 Mg Tablet PO 70 mg Mo@0630 DEJON Administration Alprazolam 0.25 mg 01/10/25 14:06 01/20/25 20:10 Alprazolam (*Crx) 0.25 Mg Tablet PO 01/30/25 23:59 0.25 mg TID PRN Administration Anxiety Apixaban 5 mg 01/10/25 21:00 01/13/25 08:00 Apixaban 5 Mg Tablet PO 5 mg Q12HR DEJON Administration Aspirin 81 mg 01/16/25 09:00 01/21/25 08:20 Aspirin 81 Mg Enteric Tablet PO Not Given QAM DEJON Atorvastatin Calcium 40 mg 01/10/25 18:00 01/20/25 16:43 Atorvastatin 40 Mg Tablet PO 40 mg QPM DEJON Administration Benzonatate 100 mg 01/10/25 14:06 Benzonatate 100 Mg Capsule PO TID PRN cough Docusate Sodium 100 mg 01/10/25 14:20 01/21/25 08:21 Docusate Sodium 100 Mg Capsule PO Not Given DAILY DEJON Ferrous Sulfate 142 mg 01/16/25 12:00 01/18/25 11:26 Ferrous Sulfate Dried 142 Mg Tabcr PO 142 mg DAILY@1200 DEJON Administration Fluticasone/Umeclidinium/Vilanterol 1 puff 01/11/25 09:00 01/21/25 08:54 Fluticasone/Umeclidin/Vilanter 100-62.5-25 Mcg Ellipta INHALATION 1 puff DAILY DEJON Administration Furosemide 40 mg 01/10/25 14:20 01/16/25 08:24 Furosemide 40 Mg Tablet PO 40 mg DAILY DEJON Administration Hydrochlorothiazide 25 mg 01/10/25 14:25 01/10/25 15:14 Hydrochlorothiazide 25 Mg Tablet PO Not Given DAILY DEJON Levothyroxine Sodium 125 mcg 01/11/25 06:30 01/21/25 05:05 Levothyroxine Sodium 125 Mcg Tablet PO Not Given DAILY@0630 [facility] Meclizine HCl 25 mg 01/10/25 14:06 01/13/25 17:33 Meclizine Hcl 25 Mg Tablet PO 25 mg QID PRN Administration dizziness Meloxicam 15 mg 01/10/25 14:20 01/16/25 08:24 Meloxicam 7.5 Mg Tablet PO 15 mg DAILY [facility] Administration Metolazone 2.5 mg 01/11/25 09:00 01/15/25 08:47 Metolazone 2.5 Mg Tablet PO 2.5 mg Q48HR [facility] Administration Pantoprazole Sodium 40 mg 01/22/25 09:00 Pantoprazole 40 Mg Tablet PO QAM DEJON Polyethylene Glycol 17 gm 01/10/25 14:06 Polyethylene Glycol 3350 17 Gm Powd.Pack PO DAILY PRN constipation Potassium Chloride 40 meq 01/12/25 09:00 01/21/25 08:21 Potassium Chloride 20 Meq Er Tablet PO Not Given DAILY [facility] Valsartan 160 mg 01/10/25 14:20 01/10/25 15:14 Valsartan 160 Mg Tablet PO Not Given DAILY [facility] Vitamin D 2,000 units 01/10/25 14:20 01/21/25 08:20 Cholecalciferol 1,000 Units Tablet PO Not Given DAILY [facility] Radiology Results: ITS Impressions Chest X-Ray 01/10/25 06:32 Impression: Clear lungs. T11 compression deformity. Head CT 01/15/25 11:59 IMPRESSION: 1. No acute intracranial process. 2. 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 Carotid Doppler Study 01/17/25 12:30 IMPRESSION: 1. >=70% (but less than near occlusion) stenosis in the right internal carotid artery. 2. 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 There is also no identifiable flow within the left vertebral artery which may also be occluded. Consider further evaluation with carotid CT angiogram for more definitive determination. Labs Labs: Laboratory Results - last 24 hr 01/21/25 04:43 WBC 11.0 H RBC 4.15 L Hgb 9.2 L Hct 32.7 L MCV 78.8 L MCH 22.2 L MCHC 28.1 L RDW 22.0 H Plt Count 299 MPV 9.3 Immature Gran % (Auto) 0.5 Neut % (Auto) 70.6 Lymph % (Auto) 16.2 L Placer % (Auto) 9.1 H Eos % (Auto) 3.1 Baso % (Auto) 0.5 Lymph # (Auto) 1.79 Placer # (Auto) 1.0 H Eos # (Auto) 0.3 Baso # (Auto) 0.1 Abs Immat Gran (auto) 0.05 H Absolute Neuts (auto) 7.8 H Absolute Nucleated RBC 0.000 Band Neutrophils % Not Reportable Nucleated RBC % 0.0 Platelet Estimate Adequate Hypochromasia 1+ Anisocytosis 2+ Microcytosis 1+ Ovalocytes 1+ Schistocytes None seen Sodium 139 Potassium 3.8 Chloride 110 H Carbon Dioxide 21 L Anion Gap 8 BUN 18 H Creatinine 0.98 Estim Creat Clear Calc 35 Estimated GFR 54 L Glucose 100 Calcium 9.5 Magnesium 1.9 Total Bilirubin 0.9 AST 25 ALT 17 Alkaline Phosphatase 68 Total Protein 7.0 Albumin 3.8
[2025-01-21] MEDS: ATORVASTATIN 40 MG TABLET PO (17:16)
== END 2025-01-21 18:05 | disposition home health service (06) | DRG 812 ==
LOC: ANHED 07:54 → ANH2MED 09:02
PROVIDERS: Family Medicine; Internal Medicine Gastroenterology; Nurse Practitioner; Psychiatry & Neurology Neurology; Student in an Organized Health Care Education/Training Program; Admitting Provider Family Medicine; Emergency Provider Emergency Medicine; PCP Family Medicine; Visit Provider Internal Medicine
PROC: 0DJ08ZZ Inspection of Upper Intestinal Tract, Via Natural or Artificial Opening Endoscopic (ICD-10-PCS; CPT 45378; principal; 2025-01-21 14:00)
DX: D50.9 Iron deficiency anemia, unspecified (principal); N17.9 Acute kidney failure, unspecified; J44.0 Chronic obstructive pulmonary disease with (acute) lower respiratory infection; N30.00 Acute cystitis without hematuria; I47.20 Ventricular tachycardia, unspecified; I69.354 Hemiplegia and hemiparesis following cerebral infarction affecting left non-dominant side; D12.2 Benign neoplasm of ascending colon; D12.3 Benign neoplasm of transverse colon; R42 Dizziness and giddiness; R19.5 Other fecal abnormalities; E03.9 Hypothyroidism, unspecified; E87.6 Hypokalemia; I12.9 Hypertensive chronic kidney disease with stage 1 through stage 4 chronic kidney disease, or unspecified chronic kidney disease; I65.22 Occlusion and stenosis of left carotid artery; I48.91 Unspecified atrial fibrillation; I08.0 Rheumatic disorders of both mitral and aortic valves; I35.0 Nonrheumatic aortic (valve) stenosis; J43.9 Emphysema, unspecified; K21.9 Gastro-esophageal reflux disease without esophagitis; K57.30 Diverticulosis of large intestine without perforation or abscess without bleeding; K64.8 Other hemorrhoids; N18.30 Chronic kidney disease, stage 3 unspecified; Z98.41 Cataract extraction status, right eye; Z98.42 Cataract extraction status, left eye; Z96.1 Presence of intraocular lens; Z87.891 Personal history of nicotine dependence; R79.89 Other specified abnormal findings of blood chemistry; Z79.01 Long term (current) use of anticoagulants; Z79.82 Long term (current) use of aspirin; Z79.02 Long term (current) use of antithrombotics/antiplatelets
CPT/HCPCS: 36415; 36430; 70450; 71046; 80048; 80053; 80061; 81001; 82274; 82607; 82728; 82746; 83540; 83550; 83735; 83880; 84443; 84484; 85025; 85027; 86850; 86900; 86901; 86923; 87086; 88305; 93005; 93306; 93880; 94640; 96361; 96365; 97110; 97161; 97165; 97530; 97535; 99285; A9270; G0378; J0696; J2704; J3475; J7050; J7120; P9016